=== PATIENT | female | born 1945 | race Caucasian/White ===

== ENCOUNTER 2019-10-24 08:09 | Outpatient (CLI) | payer MEDICARE, SELFPAY ==
--- NOTE | ~2019-10-24 | XR_ITS ---
EXAMINATION: XR shoulder RT min 2V DATE: 10/24/2019 08:32 INDICATION: Pain in right shoulder and down right humerus. TECHNIQUE: 6 views of right shoulder were obtained. COMPARISON: None. FINDINGS: Bone alignment is normal. No fracture. There is mild osteoarthritis of glenohumeral joint a nd acromioclavicular joint. Calcified right hilar lymph nodes are consistent with old granulomatous d isease. IMPRESSION: 1. Mild polyarticular osteoarthritis. Reviewed, dictated and finalized at location A. SITIONAL CARE NURSE
== END 2019-10-24 08:10 | disposition home or self-care (01) ==
PROVIDERS: PCP Nurse Practitioner Family; Visit Provider Nurse Practitioner Family
DX: M25.511 Pain in right shoulder (principal)
CPT/HCPCS: 73030

== ENCOUNTER 2019-11-20 06:23 | Outpatient (CLI) | payer MEDICARE, SELFPAY ==
[2019-11-20 06:41] LABS: Basophils Absolute Auto 0.07 K/mm3 (0.00-0.10); Eosinophils Absolute Auto 0.21 K/mm3 (0.02-0.50); Eosinophils Percent Auto 3.1 % (1.0-6.0); Hematocrit 44.4 % (35.0-42.0); Hemoglobin 14.4 g/dL (11.7-13.8); Immature Granulocyte Absolute 0.02 K/mm3 (0.00-0.00); Immature Granulocyte Percent A 0.3 % (0.0-0.0); Lymphocytes Absolute Auto 2.24 K/mm3 (1.10-4.50); Lymphocytes Percent Auto 32.6 % (18.0-42.0); Mean Corpuscular HGB Conc 32.4 g/dL (32.0-36.0); Mean Corpuscular Hemoglobin 29.5 pg (27.0-31.0); Mean Platelet Volume 10.3 fl (9.2-11.8); Monocytes Percent Auto 8.7 % (2.0-11.0); Neutrophils Absolute Auto 3.7 K/mm3 (1.7-7.2); Neutrophils Percent Auto 54.3 % (50.0-70.0); Platelet Count Result 232 K/mm3 (150-420); Red Blood Count 4.88 M/mm3 (4.20-5.40); Red Cell Distribution Width 13.2 % (11.6-14.4); White Blood Count 6.9 K/mm3 (4.8-10.8)
[2019-11-20 08:17] LABS: Alanine Aminotransferase 41 U/L (14-59); Albumin Level 3.9 g/dL (3.4-5.0); Alkaline Phosphatase 50 U/L (46-116); Anion Gap 14.3 mmol/L (7-16); Aspartate Amino Transferase 28 U/L (15-37); Bilirubin,Total 0.5 mg/dL (0.00-1.00); Blood Urea Nitrogen 24 mg/dL (7-18); Calcium 9.7 mg/dL (8.5-10.1); Carbon Dioxide 25 mmol/L (21-32); Chloride 106 mmol/L (98-108); Cholesterol 139 mg/dL (0-200); Estimated Glomerular Filt Rate > 60; Glucose 96 mg/dL (70-99); HDL Direct 54 mg/dL (40-60); LDL Cholesterol Calculated 63 mg/dL (<130); Osmolality Calculated 298 mOsm/kg (285-295); Potassium 3.3 mmol/L (3.5-5.1); Sodium 142 mmol/L (136-145); Total Protein 7.3 g/dL (6.4-8.2); Triglycerides 111 mg/dL (0-150)
== END 2019-11-20 06:24 | disposition home or self-care (01) ==
PROVIDERS: PCP Nurse Practitioner Family; Visit Provider Nurse Practitioner Family
DX: E78.5 Hyperlipidemia, unspecified (principal); I10 Essential (primary) hypertension
CPT/HCPCS: 36415; 80053; 80061; 85025

== ENCOUNTER 2020-06-15 11:17 | Outpatient (CLI) | payer MEDICARE, SELFPAY ==
[2020-06-15 11:34] LABS: Hematocrit 42.7 % (35.0-42.0); Hemoglobin 14.5 g/dL (11.7-13.8); Mean Corpuscular Hemoglobin 28.9 pg (27.0-31.0); Mean Corpuscular Volume 85.2 fL (78.0-102.0); Mean Platelet Volume 9.9 fl (9.2-11.8); Platelet Count Result 240 K/mm3 (150-420); Red Blood Count 5.01 M/mm3 (4.20-5.40); Red Cell Distribution Width 13.4 % (11.6-14.4); White Blood Count 11.5 K/mm3 (4.8-10.8)
[2020-06-15 12:16] LABS: Anion Gap 14 mmol/L (8-16); Blood Urea Nitrogen 18 mg/dL (7-18); Carbon Dioxide 25 mmol/L (21-32); Chloride 104 mmol/L (98-108); Estimated Glomerular Filt Rate 56; Glucose 106 mg/dL (70-99); Potassium 3.6 mmol/L (3.5-5.1); Sodium 143 mmol/L (136-145)
[2020-06-15 12:17] LABS: Alanine Aminotransferase 38 U/L (14-59); Albumin Level 4.1 g/dL (3.4-5.0); Alkaline Phosphatase 53 U/L (46-116); Aspartate Amino Transferase 23 U/L (15-37); Bilirubin,Total 0.5 mg/dL (0.00-1.00); Calcium 10.1 mg/dL (8.5-10.1); Lipase 124 U/L (73-393); Osmolality Calculated 297 mOsm/kg (285-295); Total Protein 7.4 g/dL (6.4-8.2)
== END 2020-06-15 11:18 | disposition home or self-care (01) ==
LOC: CHSLAB 11:19
PROVIDERS: PCP Family Medicine; Visit Provider Family Medicine
DX: R10.9 Unspecified abdominal pain (principal)
CPT/HCPCS: 36415; 80053; 83690; 85027; 87086; 87088

== ENCOUNTER 2020-12-23 06:02 | Outpatient (CLI) | payer MEDICARE, SELFPAY | END 2020-12-23 06:03 | disposition home or self-care (01) | LOC: CHSAUDIO 06:04 | PROVIDERS: PCP Nurse Practitioner Family; Visit Provider Nurse Practitioner Family | DX: H91.90 Unspecified hearing loss, unspecified ear (principal) | CPT/HCPCS: 92557; 92567 ==

== ENCOUNTER 2021-01-14 08:32 | Outpatient (CLI) | payer MEDICARE, SELFPAY ==
--- NOTE | ~2021-01-14 | MM_ITS ---
EXAMINATION: MM screening [facility] BI w tara HISTORY: Screening TECHNIQUE: Craniocaudal and mediolateral oblique 3-D tomosynthesis images were obtained and synthetic 2-D images were generated. CAD analysis was submitted and interpreted. COMPARISON: Comparison to multiple prior studies sequentially, with oldest reviewed study dated 01/2013. BREAST PARENCHYMAL COMPOSITION: There are scattered areas of fibroglandular density. FINDINGS: There is no evidence of suspicious mass, calcification, or architectural distortion to sugg est malignancy in either breast. There has been no suspicious interval change. IMPRESSION: 1. No mammographic evidence of malignancy. 2. Recommend routine screening mammography in one year. BI-RADS Category 1: Negative Reviewed, dictated and finalized at location A.
== END 2021-01-14 08:33 | disposition home or self-care (01) ==
PROVIDERS: PCP Nurse Practitioner Family; Visit Provider Nurse Practitioner Family
DX: Z12.31 Encounter for screening mammogram for malignant neoplasm of breast (principal)
CPT/HCPCS: 77063; 77067

== ENCOUNTER 2021-01-25 06:25 | Outpatient (CLI) | payer MEDICARE, SELFPAY ==
[2021-01-25 06:56] LABS: Basophils Absolute Auto 0.06 K/mm3 (0.00-0.10); Basophils Percent Auto 0.7 % (0.0-1.0); Eosinophils Absolute Auto 0.23 K/mm3 (0.02-0.50); Eosinophils Percent Auto 2.8 % (1.0-6.0); Hematocrit 45.6 % (35.0-42.0); Hemoglobin 15.1 g/dL (11.7-13.8); Immature Granulocyte Absolute 0.02 K/mm3 (0.00-0.00); Immature Granulocyte Percent A 0.2 % (0.0-0.0); Lymphocytes Absolute Auto 2.65 K/mm3 (1.10-4.50); Lymphocytes Percent Auto 31.9 % (18.0-42.0); Mean Corpuscular HGB Conc 33.1 g/dL (32.0-36.0); Mean Corpuscular Hemoglobin 28.7 pg (27.0-31.0); Mean Corpuscular Volume 86.7 fL (78.0-102.0); Mean Platelet Volume 10.5 fl (9.2-11.8); Monocytes Absolute Auto 0.53 K/mm3 (0.10-0.90); Monocytes Percent Auto 6.4 % (2.0-11.0); Neutrophils Absolute Auto 4.8 K/mm3 (1.7-7.2); Platelet Count Result 251 K/mm3 (150-420); Red Blood Count 5.26 M/mm3 (4.20-5.40); Red Cell Distribution Width 13.3 % (11.6-14.4); White Blood Count 8.3 K/mm3 (4.8-10.8)
[2021-01-25 07:05] LABS: Alanine Aminotransferase 45 U/L (14-59); Alkaline Phosphatase 57 U/L (46-116); Anion Gap 10 mmol/L (8-16); Aspartate Amino Transferase 24 U/L (15-37); Bilirubin,Total 0.6 mg/dL (0.00-1.00); Blood Urea Nitrogen 22 mg/dL (7-18); Calcium 9.6 mg/dL (8.5-10.1); Carbon Dioxide 29 mmol/L (21-32); Chloride 102 mmol/L (98-108); Cholesterol 175 mg/dL (0-200); Estimated Glomerular Filt Rate > 60; Glucose 107 mg/dL (70-99); HDL Direct 63 mg/dL (40-60); LDL Cholesterol Calculated 92 mg/dL (<130); Osmolality Calculated 295 mOsm/kg (285-295); Sodium 141 mmol/L (136-145); Total Protein 7.4 g/dL (6.4-8.2); Triglycerides 101 mg/dL (0-150)
== END 2021-01-25 06:26 | disposition home or self-care (01) ==
PROVIDERS: PCP Nurse Practitioner Family; Visit Provider Nurse Practitioner Family
DX: E78.5 Hyperlipidemia, unspecified (principal); I10 Essential (primary) hypertension
CPT/HCPCS: 36415; 80053; 80061; 85025

== ENCOUNTER 2021-05-31 09:26 | Outpatient (CLI) | payer MEDICARE, SELFPAY ==
--- NOTE | ~2021-05-31 | XR_ITS ---
EXAMINATION: XR foot LT min 3V DATE: 05/31/2021 09:47 INDICATION: Soft tissue mass at the second toe TECHNIQUE: Weightbearing dorsal plantar, oblique and lateral views of the left foot were obtained. COMPARISON: None. FINDINGS: Pes planus with flattening of the longitudinal arch. No fracture. Polyarticular osteoarthritis, moder ate severity at the fourth and fifth distal interphalangeal joints and minimal to mild at many of the remaining interphalangeal joints, the first metatarsophalangeal and a few of the tarsal metatarsal j oints. No erosions to suggest inflammatory arthritis. A couple tiny enthesopathic ossicles at the pro ximal plantar aponeurosis. Soft tissue swelling at the fourth toe. No left ankle joint effusion.. IMPRESSION: 1. Mild to moderate polyarticular osteoarthritis in the left fore and midfoot. Reviewed, dictated and finalized at location A.
== END 2021-05-31 09:27 | disposition home or self-care (01) ==
LOC: CHSIMG 09:29
PROVIDERS: PCP Nurse Practitioner Family; Visit Provider Podiatrist
DX: R22.42 Localized swelling, mass and lump, left lower limb (principal)
CPT/HCPCS: 73630

== ENCOUNTER 2022-02-14 06:08 | Outpatient (CLI) | payer MEDICARE, SELFPAY ==
[2022-02-14 06:33] LABS: Basophils Absolute Auto 0.07 K/mm3 (0.00-0.10); Basophils Percent Auto 0.9 % (0.0-1.0); Eosinophils Absolute Auto 0.22 K/mm3 (0.02-0.50); Eosinophils Percent Auto 2.8 % (1.0-6.0); Hematocrit 44.3 % (35.0-42.0); Hemoglobin 14.4 g/dL (11.7-13.8); Immature Granulocyte Absolute 0.02 K/mm3 (0.00-0.00); Immature Granulocyte Percent A 0.3 % (0.0-0.0); Lymphocytes Absolute Auto 2.72 K/mm3 (1.10-4.50); Lymphocytes Percent Auto 34.9 % (18.0-42.0); Mean Corpuscular HGB Conc 32.5 g/dL (32.0-36.0); Mean Corpuscular Hemoglobin 30.1 pg (27.0-31.0); Mean Corpuscular Volume 92.7 fL (78.0-102.0); Mean Platelet Volume 9.8 fl (9.2-11.8); Monocytes Absolute Auto 0.59 K/mm3 (0.10-0.90); Monocytes Percent Auto 7.6 % (2.0-11.0); Neutrophils Absolute Auto 4.2 K/mm3 (1.7-7.2); Neutrophils Percent Auto 53.5 % (50.0-70.0); Platelet Count Result 249 K/mm3 (150-420); Red Blood Count 4.78 M/mm3 (4.20-5.40); Red Cell Distribution Width 12.7 % (11.6-14.4); White Blood Count 7.8 K/mm3 (4.8-10.8)
[2022-02-14 07:00] LABS: Alanine Aminotransferase 40 U/L (14-59); Alkaline Phosphatase 51 U/L (46-116); Anion Gap 9 mmol/L (8-16); Aspartate Amino Transferase 23 U/L (15-37); Bilirubin,Total 0.7 mg/dL (0.00-1.00); Blood Urea Nitrogen 20 mg/dL (7-18); Calcium 9.4 mg/dL (8.5-10.1); Carbon Dioxide 26 mmol/L (21-32); Chloride 105 mmol/L (98-108); Cholesterol 136 mg/dL (0-200); Estimated Glomerular Filt Rate > 60; Free T4 Free Thyroxine 1.34 ng/dL (0.76-1.46); Glucose 106 mg/dL (70-99); HDL Direct 57 mg/dL (40-60); LDL Cholesterol Calculated 63 mg/dL (<130); Osmolality Calculated 292 mOsm/kg (285-295); Potassium 3.4 mmol/L (3.5-5.1); Sodium 140 mmol/L (136-145); Thyroid Stimulating Hormone 0.28 uIU/mL (0.36-3.74); Total Protein 7.7 g/dL (6.4-8.2); Triglycerides 82 mg/dL (0-150)
[2022-02-17 13:31] LABS: Vitamin D 25 Hydroxy 57 ng/mL (30-100)
== END 2022-02-14 06:09 | disposition home or self-care (01) ==
LOC: CHSLAB 06:12
PROVIDERS: PCP Nurse Practitioner Family; Visit Provider Nurse Practitioner Family
DX: R53.83 Other fatigue (principal); I10 Essential (primary) hypertension; R73.09 Other abnormal glucose; E78.5 Hyperlipidemia, unspecified; Z79.899 Other long term (current) drug therapy
CPT/HCPCS: 36415; 80053; 80061; 82306; 83036; 84439; 84443; 85025

== ENCOUNTER 2022-08-12 06:10 | Outpatient (CLI) | payer MEDICARE, SELFPAY ==
--- NOTE | ~2022-08-12 | MM_ITS ---
EXAMINATION: MM screening [facility] BI w tara HISTORY: Screening mammogram TECHNIQUE: Craniocaudal and mediolateral oblique 3-D tomosynthesis images were obtained and synthetic 2-D images were generated. CAD analysis was submitted and interpreted. COMPARISON: 01/14/2021, 08/16/2018, 02/14/2017 BREAST PARENCHYMAL COMPOSITION: There are scattered areas of fibroglandular density. FINDINGS: RIGHT BREAST: No suspicious mass, calcification, or architectural distortion are identified to sugges t malignancy. There has been no suspicious interval change. LEFT BREAST: An asymmetry is present in the posterior third of the outer breast on the craniocaudal v iew.. IMPRESSION: 1. Left breast asymmetry on the craniocaudal view. 2. Additional mammographic views and possible breast ultrasound are recommended. BI-RADS Category 0: Incomplete: Needs additional imaging evaluation. Reviewed, dictated and finalized at location A. LE END TENONER OPERATOR IMPRESSION: 1. Left breast asymmetry on the craniocaudal view. 2. Additional mammographic views and possible breast ultrasound are recommended . BI-RADS Category 0: Incomplete: Needs additional imaging evaluation.
--- NOTE | ~2022-08-12 | DEXA_ITS ---
Bone Density Report Name: GUEVARA CHÁVEZ Age: 77 Sex: Female Ethnicity: White Date of : 1945 Indication: postmenopausal; screening for osteoporosis; height loss; prior fracture; hysterectomy; Referring Provider: Becky Conroy Study: Bone densitometry was performed. Exam Date: August 12, 2022 Accession number: [id number] Bone Density: Region BMD T-score Z-score Classification AP Spine(L1, L2, L3) 1.092 0.7 3.2 Normal Femoral Neck (Left) 0.832 -0.1 2.1 Normal Total Hip (Left) 0.879 -0.5 1.5 Normal Femoral Neck (Right) 0.817 -0.3 2.0 Normal Total Hip (Right) 0.878 -0.5 1.5 Normal Femoral Neck Mean 0.825 -0.2 2.1 Normal Total Hip Mean 0.879 -0.5 1.5 Normal World Health Organization criteria for BMD impression classify patients as: Normal (T-score at or above -1.0), Osteopenia (T-score between -1.0 and -2.5), or Osteoporosis (T-score at or below -2.5). 10-year Fracture Risk: FRAX not reported because: All T-scores for Spine Total, Hip Total, Femoral Neck at or above -1.0 Clinical Information Provided by Patient: Has had a low trauma fracture Has used the following medications: Vitamin D, Calcium, mulivit Has the following medical conditions: Hysterectomy Patient maximum height was 65 Menopause Age: 43 No regular weight bearing exercise Does not regularly consume dairy products Drinks caffeinated beverages Onset of menses at age 9 Number of children 0 Impression: The patient has normal bone mass. The patient has risk factors, including: previous fracture. Discussion: BONE DENSITY IS ABOVE THE MINIMUM DESIRABLE LEVEL AT ALL SKELETAL SITES TESTED. This patient?s bone mineral density is above the minimum desirable level (T-score -1.0 or better) at all sites measured. The patient should follow a healthful lifestyle (good nutrition with adequate calcium and vitamin D, and appropriate weight-bearing exercise). Follow-Up: Consider repeating this study in 5 years or sooner if there is some new clinical indication. Reported by: Dr. Stew Guzman on 08/12/2022 7:00:00 AM. Reviewed, dictated and finalized at location AJeannette DE JESUS
== END 2022-08-12 06:11 | disposition home or self-care (01) ==
LOC: CHSIMG 06:13
PROVIDERS: PCP Nurse Practitioner Family; Visit Provider Nurse Practitioner Family
DX: M81.8 Other osteoporosis without current pathological fracture (principal); Z12.31 Encounter for screening mammogram for malignant neoplasm of breast
CPT/HCPCS: 77063; 77067; 77080

== ENCOUNTER 2022-08-19 08:03 | Outpatient (CLI) | payer MEDICARE, SELFPAY ==
--- NOTE | ~2022-08-19 | MM_ITS ---
EXAMINATION: MM diagnostic angle LT w tara HISTORY: Left breast asymmetry on screening mammogram TECHNIQUE: Additional 3-D tomosynthesis images of the left breast were performed and synthetic 2-D im ages were generated. CAD analysis was submitted and interpreted. COMPARISON: 08/12/2022, 01/14/2021, 08/16/2018 FINDINGS: There is a return to baseline fibroglandular appearance with spot compression of the left b reast in the area questioned on screening mammogram. IMPRESSION: 1. No mammographic evidence of malignancy. 2. Recommend routine screening mammography in one year. BI-RADS Category 1: Negative Reviewed, dictated and finalized at location A. ERICAN HISTORY TEACHER
== END 2022-08-19 08:04 | disposition home or self-care (01) ==
LOC: CHSIMG 08:05
PROVIDERS: PCP Nurse Practitioner Family; Visit Provider Nurse Practitioner Family
DX: N64.89 Other specified disorders of breast (principal)
CPT/HCPCS: 77061; 77065; G0279

== ENCOUNTER 2022-09-06 14:07 | Outpatient (CLI) | payer MEDICARE, SELFPAY ==
[2022-09-06 14:13] LABS: Add Urine Microscopic? YES; Appearance Urine Slightly Cloudy (Clear); Bacteria Urine 2+ /hpf; Bilirubin Urine Negative (Negative); Blood Urine Trace-Intact (Negative); Color Urine Yellow (Yellow); Glucose Urine UA Negative (Negative); Ketones Urine Negative (Negative); Leukocyte Esterase Ur 2+ LEU/UL (Negative); Nitrate Urine Positive (Negative); Protein Urine Negative (Negative); RBC Urine 0-2 /hpf (0-2); Specific Grav Ur >= 1.030 (1.010-1.020); Squamous Epithelial Cell Urine Rare /hpf (Few); Urobilinogen Urine 0.2 mg/dL (0.2-1.0)
== END 2022-09-06 14:08 | disposition home or self-care (01) ==
LOC: CHSLAB 14:08
PROVIDERS: PCP Nurse Practitioner Family; Visit Provider Nurse Practitioner Family
DX: R39.9 Unspecified symptoms and signs involving the genitourinary system (principal)
CPT/HCPCS: 81001; 87077; 87086; 87088; 87186

== ENCOUNTER 2022-09-12 08:00 | Outpatient (CLI) | payer MEDICARE, SELFPAY ==
--- NOTE | ~2022-09-12 | XR_ITS ---
EXAM: XR knee LT 2V DATE: 09/12/2022 08:12 HISTORY: GENERAL LT KNEE PAIN,S/P HEARD A POP,INJ X1WK AGO . COMPARISON: 06/20/2011. FINDINGS: Normal mineralization. No fracture or dislocation. No lytic or blastic lesion. Severe medi al joint space narrowing. Loss of valgus alignment. Moderate tricompartmental osteophytosis. No erosi on or periosteal change. Vascular calcifications. Moderate volume joint fluid. IMPRESSION: Tricompartmental left knee osteoarthritis, severe in the medial compartment. Moderate lef t knee joint effusion. Reviewed, dictated and finalized at location K. RICT BRANCH MANAGER IMPRESSION: Tricompartmental left knee osteoarthritis, severe in the medial com partment. Moderate left knee joint effusion.
== END 2022-09-12 08:01 | disposition home or self-care (01) ==
LOC: CHSIMG 08:02
PROVIDERS: PCP Nurse Practitioner Family; Visit Provider Nurse Practitioner Family
DX: M25.562 Pain in left knee (principal); M17.12 Unilateral primary osteoarthritis, left knee; M25.462 Effusion, left knee
CPT/HCPCS: 73560

== ENCOUNTER 2022-09-17 07:14 | Outpatient (CLI) | payer MEDICARE, SELFPAY ==
--- NOTE | ~2022-09-17 | MR_ITS ---
EXAMINATION: MR knee LT wo con DATE: 09/17/2022 08:40 INDICATION: Increasing left knee pain following a twisting injury 2 weeks ago. TECHNIQUE: Magnetic resonance imaging (MRI) of the left knee was performed without intravenous contra st. Sequences included axial PD-weighted FS FSE, coronal PD-weighted FSE and PD-weighted FS FSE, sagi ttal PD-weighted FSE, and sagittal T2-weighted FS FSE. COMPARISON: X-ray left knee 09/12/2022. FINDINGS: Medial compartment: Apical and undersurface tears of the posterior horn and body of the medial meniscus, with extensive d egenerative signal change and medial extrusion. Full-thickness cartilage loss in the renal compartmen t. Severe osteophytosis. Lateral compartment: Apical tear of the body of the lateral meniscus. Moderate diffuse cartilage loss. Moderate osteophyto sis. Patellofemoral compartment: Full-thickness cartilage loss on the medial facet. Moderate osteophytosis. Ligaments and tendons: The ACL is not visualized. PCL, MCL, and LCL are intact. The remaining flexor and extensor tendons ar e intact. Fluid: Small volume joint fluid. Large Reyes's cyst. Osseous/other: No suspicious focal or diffuse marrow signal. IMPRESSION: 1. Presumably chronic full-thickness ACL tear. 2. Complex medial meniscal tears, with degenerative change and medial extrusion. 3. Apical tear of the body of the lateral meniscus. 4. Tricompartmental osteoarthritis, severe in the medial compartment. 5. Large Reyes's cyst. Reviewed, dictated and finalized at location K. ISHING SYSTEMS ANALYST IMPRESSION: 1. Presumably chronic full-thickness ACL tear. 2. Complex medial meniscal tears, with degenerative change and medial extrusion . 3. Apical tear of the body of the lateral meniscus. 4. Tricompartmental osteoarthritis, severe in the medial compartment. 5. Large Reyes's cyst.
== END 2022-09-17 07:15 | disposition home or self-care (01) ==
LOC: CHSIMG 07:16
PROVIDERS: PCP Nurse Practitioner Family; Visit Provider Nurse Practitioner Family
DX: M25.462 Effusion, left knee (principal); M25.562 Pain in left knee; S83.512A Sprain of anterior cruciate ligament of left knee, initial encounter; S83.232A Complex tear of medial meniscus, current injury, left knee, initial encounter; S83.282A Other tear of lateral meniscus, current injury, left knee, initial encounter; M17.12 Unilateral primary osteoarthritis, left knee; M71.22 Synovial cyst of popliteal space [Baker], left knee
CPT/HCPCS: 73721

== ENCOUNTER 2022-09-26 15:25 | Outpatient (RCR) | payer MEDICARE, SELFPAY ==
--- NOTE | 2022-09-26 16:35 | PTOPEVAL1 ---
Assessment and note entered by Deja King DPT Evaluation Information Assessment Status Evaluation Diagnosis chronic ACL tear, meniscal tear, osteoarthritis Onset 09/20/21 Subjective Information Patient reports chronic L knee pain for multiple years. She reports she had been getting injections in her knee every 6 months with good results. ~2 weeks ago she was rolling in bed and felt a pop with significant pain and pain has significantly improved. She reports the next day she could not walk but pain is improving. MRI shows posterior horn tear or the meniscus, full thickness cartilage loss in the renal compartment and severe osteophytosis. She reports difficulty walking, standing and performing prolonged house hold activities. Ice has helped decreased inflammation and pain. Patient's goal for PT is to be able to walk better. Reported Pain Level Pain Score 6: Self Report Assessment PT Clinical Summary Patient is a 77 year old female who presents to PT with L knee pain. Patient demonstrates decreased L knee strength, L knee AROM, and impaired gait mechanics limtiing her ability to ambulate, tolerate prolonged periods and perform house hold tasks. Patient would benefit from skilled PT to address impairments and return to PLOF. Plan of Care Interventions Electrical Stimulation,Hot Pack/Cold Pack,Manual Therapy,Neuro Re-education,Patient/Caregiver Educati,Therapeutic Activities,Therapeutic Exercise,Self-Care/Home Management PT Services Indicated Yes Treatment Frequency and 2x/week x 10 visits Duration These treatments will address the objective and functional deficits as defined above. The patient will be advanced safely and appropriately in order for the patient to progress towards his/her prior level of function. Additional exercises will be introduced and as well as a comprehensive home exercise program upon discharge, if needed, ?to ensure carryover of functional gains achieved in the clinic. This treatment plan has been reviewed and agreement upon by the patient.
--- NOTE | 2022-10-27 16:13 | PTOPDC ---
Assessment and note entered by Deja King DPT Evaluation Information Assessment Status Evaluation Diagnosis chronic ACL tear, meniscal tear, osteoarthritis Onset 09/20/21 Subjective Information Patient reports her knee is feeling much improved since start of therapy. She reports she has improved ability to walk and get up from chair and her leg does not hurt when she goes to bed at night. She does report that stairs can cause some discomfort. She reports compliance with HEP. Reported Pain Level Pain Score 0: Self Report Assessment PT Clinical Summary Patient is a 77 year old female who has been seen from 09/26/22 to 10/27/22 for L knee pain. She made great progress and met all goals. She has improved strength and ROM and reports improved ability to ambulate and get up from a chair. She reports independence with HEP and is appropriate for discharge at this time. Plan of Care PT Services Indicated No Treatment Frequency and DC to independent HEP Duration
== END 2022-10-27 16:37 | disposition home or self-care (01) ==
LOC: CHSPT 15:25
PROVIDERS: PCP Nurse Practitioner Family; Visit Provider Nurse Practitioner Family
DX: M17.12 Unilateral primary osteoarthritis, left knee (principal)
CPT/HCPCS: 97014; 97110; 97140; 97161; G0283

== ENCOUNTER 2022-11-28 07:28 | Outpatient (CLI) | payer MEDICARE, SELFPAY | END 2022-11-28 07:29 | disposition home or self-care (01) | LOC: CHSAUDIO 07:32 | PROVIDERS: PCP Nurse Practitioner Family; Visit Provider Nurse Practitioner Family | DX: H90.3 Sensorineural hearing loss, bilateral (principal) | CPT/HCPCS: 92557; 92567 ==

== ENCOUNTER 2022-12-20 10:36 | Outpatient (CLI) | payer MEDICARE, SELFPAY ==
[2022-12-20 10:49] LABS: Appearance Urine Clear (Clear); Bilirubin Urine Negative (Negative); Blood Urine Negative (Negative); Color Urine Yellow (Yellow); Glucose Urine UA Negative (Negative); Ketones Urine Negative (Negative); Leukocyte Esterase Ur 2+ LEU/UL (Negative); Nitrate Urine Negative (Negative); Protein Urine Negative (Negative); Urobilinogen Urine 0.2 mg/dL (0.2-1.0)
[2022-12-20 10:55] LABS: Add Urine Microscopic? YES; Bacteria Urine 1+ /hpf; Mucus Urine Moderate /lpf; RBC Urine None seen /hpf (0-2); Squamous Epithelial Cell Urine Few /hpf (Few)
== END 2022-12-20 10:37 | disposition home or self-care (01) ==
LOC: CHSLAB 10:39
PROVIDERS: PCP Nurse Practitioner Family; Visit Provider Nurse Practitioner Family
DX: R82.90 Unspecified abnormal findings in urine (principal)
CPT/HCPCS: 81001; 87077; 87086; 87088; 87186

== ENCOUNTER 2023-01-16 07:30 | Outpatient (CLI) | payer MEDICARE, SELFPAY ==
[2023-01-16 07:55] LABS: Appearance Urine Clear (Clear); Bilirubin Urine 1+ (Negative); Blood Urine Negative (Negative); Glucose Urine UA Negative (Negative); Ketones Urine Trace (Negative); Leukocyte Esterase Ur 1+ LEU/UL (Negative); Nitrate Urine Negative (Negative); Protein Urine Negative (Negative); Urobilinogen Urine 0.2 mg/dL (0.2-1.0); pH Urine 6.5 (5.0-8.0)
[2023-01-16 08:01] LABS: Add Urine Microscopic? YES; Bacteria Urine Trace /hpf; Color Urine Dark Yellow (Yellow); RBC Urine None seen /hpf (0-2); Squamous Epithelial Cell Urine Few /hpf (Few); WBC Urine 0-3 /hpf (0-3)
[2023-01-16 08:02] LABS: Mucus Urine Few /lpf
== END 2023-01-16 07:31 | disposition home or self-care (01) ==
LOC: CHSLAB 07:32
PROVIDERS: PCP Nurse Practitioner Family; Visit Provider Nurse Practitioner Family
DX: R82.90 Unspecified abnormal findings in urine (principal); Z87.898 Personal history of other specified conditions
CPT/HCPCS: 81001; 87086

== ENCOUNTER 2023-02-27 06:19 | Outpatient (CLI) | payer MEDICARE, SELFPAY ==
[2023-02-27 06:33] LABS: Basophils Absolute Auto 0.07 K/mm3 (0.00-0.10); Basophils Percent Auto 0.8 % (0.0-1.0); Eosinophils Absolute Auto 0.17 K/mm3 (0.02-0.50); Hemoglobin 14.4 g/dL (11.7-13.8); Immature Granulocyte Absolute 0.03 K/mm3 (0.00-0.00); Immature Granulocyte Percent A 0.4 % (0.0-0.0); Mean Corpuscular HGB Conc 33.5 g/dL (32.0-36.0); Mean Corpuscular Volume 89.6 fL (78.0-102.0); Mean Platelet Volume 9.7 fl (9.2-11.8); Monocytes Absolute Auto 0.67 K/mm3 (0.10-0.90); Monocytes Percent Auto 7.8 % (2.0-11.0); Neutrophils Absolute Auto 5.2 K/mm3 (1.7-7.2); Platelet Count Result 269 K/mm3 (150-420); Red Cell Distribution Width 12.1 % (11.6-14.4); White Blood Count 8.6 K/mm3 (4.8-10.8)
[2023-02-27 07:03] LABS: Alanine Aminotransferase 31 U/L (14-59); Albumin Level 3.9 g/dL (3.4-5.0); Alkaline Phosphatase 52 U/L (46-116); Anion Gap 12 mmol/L (8-16); Aspartate Amino Transferase 22 U/L (15-37); Bilirubin,Total 0.6 mg/dL (0.00-1.00); Blood Urea Nitrogen 18 mg/dL (7-18); Calcium 9.4 mg/dL (8.5-10.1); Carbon Dioxide 27 mmol/L (21-32); Chloride 105 mmol/L (98-108); Cholesterol 150 mg/dL (0-200); Estimated Glomerular Filt Rate > 60; Glucose 97 mg/dL (70-99); HDL Direct 58 mg/dL (40-60); LDL Cholesterol Calculated 68 mg/dL (<130); Osmolality Calculated 299 mOsm/kg (285-295); Potassium 3.3 mmol/L (3.5-5.1); Sodium 144 mmol/L (136-145); Total Protein 7.2 g/dL (6.4-8.2); Triglycerides 119 mg/dL (0-150)
== END 2023-02-27 06:20 | disposition home or self-care (01) ==
PROVIDERS: PCP Nurse Practitioner Family; Visit Provider Nurse Practitioner Family
DX: E78.5 Hyperlipidemia, unspecified (principal); I10 Essential (primary) hypertension
CPT/HCPCS: 36415; 80053; 80061; 85025

== ENCOUNTER 2023-04-11 10:23 | Outpatient (CLI) | payer MEDICARE, SELFPAY ==
[2023-04-11 11:30] LABS: Uric Acid 2.1 mg/dL (2.6-6.0)
== END 2023-04-11 10:24 | disposition home or self-care (01) ==
LOC: CHSLAB 10:25
PROVIDERS: PCP Nurse Practitioner Family; Visit Provider Nurse Practitioner Family
DX: M79.675 Pain in left toe(s) (principal)
CPT/HCPCS: 36415; 84550

== ENCOUNTER 2023-05-22 11:33 | Outpatient (CLI) | payer MEDICARE, SELFPAY ==
[2023-05-22 11:40] LABS: Add Urine Microscopic? YES; Appearance Urine Clear (Clear); Bacteria Urine 3+ /hpf; Bilirubin Urine Negative (Negative); Blood Urine Negative (Negative); Color Urine Light Yellow (Yellow); Glucose Urine UA Negative (Negative); Ketones Urine Trace (Negative); Leukocyte Esterase Ur 1+ LEU/UL (Negative); Nitrate Urine Positive (Negative); Protein Urine Negative (Negative); RBC Urine None seen /hpf (0-2); Squamous Epithelial Cell Urine Few /hpf (Few); Urobilinogen Urine 0.2 mg/dL (0.2-1.0)
== END 2023-05-22 11:34 | disposition home or self-care (01) ==
LOC: CHSLAB 11:35
PROVIDERS: PCP Nurse Practitioner Family; Visit Provider Nurse Practitioner Family
DX: R82.90 Unspecified abnormal findings in urine (principal); Z87.898 Personal history of other specified conditions
CPT/HCPCS: 81001; 87077; 87086; 87088; 87186

== ENCOUNTER 2023-06-21 11:38 | Outpatient (CLI) | payer MEDICARE, SELFPAY ==
--- NOTE | ~2023-06-21 | US_ITS ---
US axilla LT 06/21/2023 12:21 Indication: Palpable left axillary mass Procedure: High-resolution Limited ultrasound of the left axilla Comparison: No prior studies for comparison. Findings: There is a complex mass in the left axilla measuring 7 x 5.2 x 4.1 cm with heterogeneous in ternal echotexture and internal vascularity. No other discrete solid or cystic masses seen. Impression: 1: Complex irregular shaped hypoechoic left axillary mass measuring 7 cm. Percutaneous ultrasound-petey ded biopsy recommended. Reviewed, dictated and finalized at location B. Impression: 1: Complex irregular shaped hypoechoic left axillary mass measuring 7 cm. Percu taneous ultrasound-guided biopsy recommended.
== END 2023-06-21 11:39 | disposition home or self-care (01) ==
LOC: CHSIMG 11:41
PROVIDERS: PCP Nurse Practitioner Family; Visit Provider Nurse Practitioner Family
DX: R22.31 Localized swelling, mass and lump, right upper limb (principal)
CPT/HCPCS: 76882

== ENCOUNTER 2023-06-30 09:50 | Outpatient (CLI) | payer MEDICARE, SELFPAY ==
--- NOTE | ~2023-06-30 | US_ITS ---
EXAMINATION: US_BXSTAXLIMG_US DATE: 06/30/2023 11:02 INDICATION: Left axillary mass TECHNIQUE: The procedure including the risks and benefits was discussed with the patient. Risks discu ssed included bleeding and infection. The patient understood the risks and agreed to proceed. The sk in overlying the left axilla was prepped and draped in usual sterile fashion. Anesthetic was adminis tered with 1% lidocaine subcutaneously. An routine gauge core biopsy needle was advanced under wilfredo nuous ultrasound observation to the lesion of interest. 6 core biopsy specimens were obtained, 4 nadya margaux in RPMI media and 2 in formalin. The needle was removed and the entry site was cleaned and dress ed. Post procedure ultrasound demonstrated no hemorrhage. FINDINGS: Ultrasound images demonstrate a 6.2 x 4.1 x 4.6 cm very hypoechoic solid mass with lobular margins at the left axilla. Subsequent images density biopsy needle advanced into the mass.. IMPRESSION: 1. Successful Ultrasound-guided biopsy of a 6.2 x 4.1 x 4.6 cm left axillary mass which is concerning for malignancy/metastatic disease. Reviewed, dictated and finalized at location A. IMPRESSION: 1. Successful Ultrasound-guided biopsy of a 6.2 x 4.1 x 4.6 cm left axillary ma ss which is concerning for malignancy/metastatic disease.
== END 2023-06-30 09:51 | disposition home or self-care (01) ==
PROVIDERS: PCP Nurse Practitioner Family; Visit Provider Nurse Practitioner Family
DX: R22.32 Localized swelling, mass and lump, left upper limb (principal)
CPT/HCPCS: 20999; 76942; 88184; 88185; 88305; 88342

== ENCOUNTER 2023-08-21 06:27 | Outpatient (CLI) | payer MEDICARE, SELFPAY ==
--- NOTE | ~2023-08-21 | MM_ITS ---
EXAMINATION: MM screening angle BI w tara HISTORY: Screening TECHNIQUE: Craniocaudal and mediolateral oblique 3-D tomosynthesis images were obtained and synthetic 2-D images were generated. CAD analysis was submitted and interpreted. COMPARISON: Comparison to multiple prior studies sequentially, with oldest reviewed study dated 02/2017. BREAST PARENCHYMAL COMPOSITION: There are scattered areas of fibroglandular density. FINDINGS: There is no evidence of suspicious mass, calcification, or architectural distortion to sugg est malignancy in either breast. There has been no suspicious interval change. IMPRESSION: 1. No mammographic evidence of malignancy. 2. Recommend routine screening mammography in one year. BI-RADS Category 1: Negative Reviewed, dictated and finalized at location A. ERER AND WIRER
== END 2023-08-21 06:28 | disposition home or self-care (01) ==
LOC: CHSIMG 06:30
PROVIDERS: PCP Nurse Practitioner Family; Visit Provider Nurse Practitioner Family
DX: Z12.31 Encounter for screening mammogram for malignant neoplasm of breast (principal)
CPT/HCPCS: 77063; 77067

== ENCOUNTER 2023-09-06 06:33 | Outpatient (CLI) | payer MEDICARE, SELFPAY ==
--- NOTE | ~2023-09-06 | CT_ITS ---
EXAMINATION: CTA brain carotid DATE: 09/06/2023 10:25 INDICATION: Malignant melanoma of unknown origin. TECHNIQUE: Computed tomographic angiography (CTA) of the head was performed without and with 100 mL O mnipaque-350 intravenous contrast. CTA of the neck was performed with intravenous contrast. Automated exposure control and iterative reconstruction technique were employed. The dose-length product was 1 004.23 mGy-cm. Maximum intensity projection and volume rendered 3D-reconstructions were created by giovanni loredo technologist on a separate workstation. COMPARISON: Head CT 01/03/2019 FINDINGS: HEAD CTA: There are scattered areas of low attenuation in the cerebral white matter. There is no intr acranial hemorrhage, acute infarction, or abnormal intracranial mass lesion. There is an old lacunar infarct in the right lentiform nucleus. The ventricles are normal in size. The orbits are normal. The re are mucous retention cysts in the maxillary sinuses. Right vertebral artery is dominant. There is no significant stenosis of basilar artery or the posterior cerebral arteries. There is no significant stenosis of the intracranial internal carotid arteries or anterior or middle cerebral arteries. Ante rior communicating artery is normal. The posterior communicating arteries are normal. There is no ane urysm. NECK CTA: There are no pathologically enlarged lymph nodes. There are nodules in the thyroid measurin g up to 7 mm, likely not clinically significant. There is no significant stenosis of the vertebral ar teries. There is plaque in the proximal internal carotid arteries. There is 54% stenosis of the proxi mal right internal carotid artery relative to normal distal artery lumen diameter (NASCET criteria). There is 22% stenosis of the proximal left internal carotid artery relative to normal distal artery l umen diameter. There is moderate cervical spondylosis. IMPRESSION: 1. 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 2. Moderate nonspecific cerebral white matter disease, which likely represents chronic small vessel ischemic disease. 3. No aneurysm or significant intracranial arterial stenosis. 4. 54% stenosis of the proximal right internal carotid artery relative to normal distal artery lumen diameter (NASCET criteria). 5. 22% stenosis of the proximal left internal carotid artery relative to normal distal artery lumen d iameter. Reviewed, dictated and finalized at location E. TING ROLLER POLISHER IMPRESSION: 1. 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 2. Moderate nonspecific cerebral white matter disease, which likely represents chronic small vessel ischemic disease. 3. No aneurysm or significant intracranial arterial stenosis. 4. 54% stenosis of the proximal right internal carotid artery relative to veronica l distal artery lumen diameter (NASCET criteria). 5. 22% stenosis of the proximal left internal carotid artery relative to normal distal artery lumen diameter.
[2023-09-06 07:22] LABS: Estimated Glomerular Filt Rate > 60
== END 2023-09-06 06:34 | disposition home or self-care (01) ==
LOC: CHSIMG 06:36
PROVIDERS: PCP Nurse Practitioner Family
DX: C43.9 Malignant melanoma of skin, unspecified (principal); R90.82 White matter disease, unspecified; I65.23 Occlusion and stenosis of bilateral carotid arteries
CPT/HCPCS: 70496; 70498; Q9967

== ENCOUNTER 2023-11-20 16:41 | Outpatient (NON) | payer MEDICARE, SELFPAY ==
[2023-11-20 17:00] LABS: Appearance Urine Clear (Clear); Bilirubin Urine Negative (Negative); Blood Urine Negative (Negative); Color Urine Yellow (Yellow); Glucose Urine UA Negative (Negative); Ketones Urine Trace (Negative); Leukocyte Esterase Ur 1+ LEU/UL (Negative); Nitrate Urine Negative (Negative); Protein Urine 1+ (Negative); Urobilinogen Urine 0.2 mg/dL (0.2-1.0)
[2023-11-20 17:11] LABS: Add Urine Microscopic? YES; RBC Urine 0-2 /hpf (0-2); Squamous Epithelial Cell Urine Rare /hpf (Few)
[2023-11-20 17:12] LABS: Bacteria Urine 3+ /hpf
== END 2023-11-20 16:42 | disposition home or self-care (01) ==
LOC: CHSLAB 16:44
PROVIDERS: Visit Provider Nurse Practitioner Family
DX: N39.41 Urge incontinence (principal)
CPT/HCPCS: 81001; 87077; 87086; 87088; 87186

== ENCOUNTER 2023-12-07 06:23 | Outpatient (CLI) | payer MEDICARE, SELFPAY ==
[2023-12-07 07:04] LABS: Appearance Urine Clear (Clear); Bilirubin Urine Negative (Negative); Blood Urine Negative (Negative); Color Urine Yellow (Yellow); Glucose Urine UA Negative (Negative); Ketones Urine Negative (Negative); Leukocyte Esterase Ur Negative LEU/UL (Negative); Nitrate Urine Positive (Negative); Protein Urine Negative (Negative); Specific Grav Ur 1.015 (1.010-1.020); Urobilinogen Urine 0.2 mg/dL (0.2-1.0)
[2023-12-07 07:09] LABS: Add Urine Microscopic? YES; Bacteria Urine 3+ /hpf; RBC Urine None seen /hpf (0-2); Squamous Epithelial Cell Urine Rare /hpf (Few); WBC Urine 0-3 /hpf (0-3)
== END 2023-12-07 06:24 | disposition home or self-care (01) ==
LOC: CHSLAB 06:25
PROVIDERS: PCP Nurse Practitioner Family; Visit Provider Nurse Practitioner Family
DX: N39.41 Urge incontinence (principal); Z87.898 Personal history of other specified conditions
CPT/HCPCS: 81001; 87077; 87086; 87088; 87186

== ENCOUNTER 2024-01-08 07:20 | Outpatient (CLI) | payer MEDICARE, SELFPAY ==
[2024-01-08 07:51] LABS: Appearance Urine Sl Cloudy (Clear); Bilirubin Urine Negative (Negative); Blood Urine Negative (Negative); Color Urine Light Yellow (Yellow); Glucose Urine UA Negative (Negative); Ketones Urine Negative (Negative); Leukocyte Esterase Ur 2+ LEU/UL (Negative); Nitrate Urine Positive (Negative); Protein Urine Negative (Negative); Urobilinogen Urine 0.2 mg/dL (0.2-1.0)
[2024-01-08 08:04] LABS: Add Urine Microscopic? YES; Bacteria Urine 3+ /hpf; RBC Urine None seen /hpf (0-2); Squamous Epithelial Cell Urine Rare /hpf (Few); WBC Urine 51-75 /hpf (0-3)
== END 2024-01-08 07:21 | disposition home or self-care (01) ==
LOC: CHSLAB 07:24
PROVIDERS: PCP Nurse Practitioner Family; Visit Provider Nurse Practitioner Family
DX: N39.41 Urge incontinence (principal)
CPT/HCPCS: 81001; 87077; 87086; 87088; 87186

== ENCOUNTER 2024-02-19 12:03 | Outpatient (CLI) | payer MEDICARE, SELFPAY ==
[2024-02-19 12:56] LABS: Add Urine Microscopic? YES; Appearance Urine Clear (Clear); Bilirubin Urine Negative (Negative); Blood Urine Negative (Negative); Color Urine Yellow (Yellow); Glucose Urine UA Negative (Negative); Ketones Urine Negative (Negative); Leukocyte Esterase Ur 2+ LEU/UL (Negative); Nitrate Urine Negative (Negative); Protein Urine Negative (Negative); RBC Urine None seen /hpf (0-2); Urobilinogen Urine 0.2 mg/dL (0.2-1.0); WBC Urine 0-5 /hpf (0-3)
[2024-02-19 12:57] LABS: Bacteria Urine Trace /hpf; Mucus Urine Few /lpf; Squamous Epithelial Cell Urine Few /hpf (Few)
== END 2024-02-19 12:04 | disposition home or self-care (01) ==
LOC: CHSLAB 12:06
PROVIDERS: PCP Nurse Practitioner Family; Visit Provider Nurse Practitioner Family
DX: R82.90 Unspecified abnormal findings in urine (principal); Z87.898 Personal history of other specified conditions
CPT/HCPCS: 81001; 87086

== ENCOUNTER 2024-03-08 08:37 | Outpatient (CLI) | payer MEDICARE, SELFPAY ==
[2024-03-08 08:47] LABS: Add Urine Microscopic? YES; Appearance Urine Clear (Clear); Bilirubin Urine Negative (Negative); Blood Urine Negative (Negative); Color Urine Yellow (Yellow); Glucose Urine UA Negative (Negative); Ketones Urine Negative (Negative); Leukocyte Esterase Ur Trace LEU/UL (Negative); Nitrate Urine Negative (Negative); Protein Urine Negative (Negative); RBC Urine None seen /hpf (0-2); Squamous Epithelial Cell Urine None Seen /hpf (Few); Urobilinogen Urine 0.2 mg/dL (0.2-1.0); WBC Urine 0-3 /hpf (0-3)
[2024-03-08 08:48] LABS: Bacteria Urine Rare /hpf
== END 2024-03-08 08:38 | disposition home or self-care (01) ==
LOC: CHSLAB 08:39
PROVIDERS: PCP Nurse Practitioner Family; Visit Provider Nurse Practitioner Family
DX: Z87.898 Personal history of other specified conditions (principal)
CPT/HCPCS: 81001

== ENCOUNTER 2024-07-09 06:16 | Outpatient (CLI) | payer MEDICARE, SELFPAY ==
[2024-07-09 06:42] LABS: Add Urine Microscopic? YES; Appearance Urine Sl Cloudy (Clear); Bilirubin Urine Negative (Negative); Blood Urine Negative (Negative); Color Urine Yellow (Yellow); Glucose Urine UA Negative (Negative); Ketones Urine Trace (Negative); Leukocyte Esterase Ur 1+ LEU/UL (Negative); Nitrate Urine Negative (Negative); Protein Urine Trace (Negative); Specific Grav Ur 1.025 (1.010-1.020); Urobilinogen Urine 0.2 mg/dL (0.2-1.0); pH Urine 5.5 (5.0-8.0)
[2024-07-09 06:49] LABS: Bacteria Urine Trace /hpf; Mucus Urine Few /lpf; RBC Urine None seen /hpf (0-2); Squamous Epithelial Cell Urine Few /hpf (Few); WBC Urine 31-50 /hpf (0-3)
[2024-07-09 07:15] LABS: Cholesterol 213 mg/dL (0-200); HDL Direct 50 mg/dL (40-60); LDL Cholesterol Calculated 107 mg/dL (<130); Triglycerides 281 mg/dL (0-150)
[2024-07-11 04:18] LABS: Vitamin D 25 Hydroxy 82 ng/mL (30-100)
== END 2024-07-09 06:17 | disposition home or self-care (01) ==
LOC: CHSLAB 06:18
PROVIDERS: PCP Nurse Practitioner Family; Visit Provider Nurse Practitioner Family
DX: N39.0 Urinary tract infection, site not specified (principal); Z79.899 Other long term (current) drug therapy; E78.5 Hyperlipidemia, unspecified; Z13.6 Encounter for screening for cardiovascular disorders; R82.90 Unspecified abnormal findings in urine
CPT/HCPCS: 36415; 80061; 81001; 82306; 87086; 87088

== ENCOUNTER 2024-09-10 07:32 | Outpatient (CLI) | payer MEDICARE, SELFPAY ==
--- NOTE | ~2024-09-10 | MM_ITS ---
EXAMINATION: MM screening [facility] BI w tara HISTORY: Screening mammogram TECHNIQUE: Craniocaudal and mediolateral oblique 3-D tomosynthesis images were obtained and synthetic 2-D images were generated. CAD analysis was submitted and interpreted. COMPARISON: 08/21/2023, 08/19/2022, 08/12/2022, 01/14/2021 BREAST PARENCHYMAL COMPOSITION:Not Dense. There are scattered areas of fibroglandular density. FINDINGS: No suspicious mass, calcification, or architectural distortion are identified in either obdulio ast to suggest malignancy. There has been no suspicious interval change. IMPRESSION: No mammographic evidence of malignancy. Recommend routine screening mammography in one year. BI-RADS Category 1: Negative Reviewed, dictated and finalized at location . CTOR OF LOGISTICS
--- NOTE | ~2024-09-10 | DEXA_ITS ---
Bone Density Report Name: GUEVARA CHÁVEZ Age: 79 Sex: Female Ethnicity: White Date of : 1945 Indication: postmenopausal; screening for osteoporosis; height loss; cancer; hysterectomy; Referring Provider: Becky Conroy Study: Bone densitometry was performed. Exam Date: September 10, 2024 Accession number: [id number] Bone Density: Region BMD T-score Z-score Classification AP Spine(L1, L2, L3) 1.150 1.2 3.9 Normal Femoral Neck (Left) 0.800 -0.4 1.9 Normal Total Hip (Left) 0.870 -0.6 1.6 Normal Femoral Neck (Right) 0.812 -0.3 2.0 Normal Total Hip (Right) 0.835 -0.9 1.3 Normal Femoral Neck Mean 0.806 -0.4 2.0 Normal Total Hip Mean 0.853 -0.7 1.4 Normal World Health Organization criteria for BMD impression classify patients as: Normal (T-score at or above -1.0), Osteopenia (T-score between -1.0 and -2.5), or Osteoporosis (T-score at or below -2.5). 10-year Fracture Risk: FRAX not reported because: All T-scores for Spine Total, Hip Total, Femoral Neck at or above -1.0 Clinical Information Provided by Patient: Has the following medical conditions: Cancer, Hysterectomy, MELANOMA Patient maximum height was 65.0 Menopause Age: 43 No regular weight bearing exercise Drinks caffeinated beverages Onset of menses at age 9 Number of children 0 Impression: The patient has normal bone mass. Discussion: BONE DENSITY IS ABOVE THE MINIMUM DESIRABLE LEVEL AT ALL SKELETAL SITES TESTED. This patient?s bone mineral density is above the minimum desirable level (T-score -1.0 or better) at all sites measured. The patient should follow a healthful lifestyle (good nutrition with adequate calcium and vitamin D, and appropriate weight-bearing exercise). Follow-Up: Consider repeating this study in 5 years or sooner if there is some new clinical indication. Reported by: DANNIE on 09/13/2024 3:19:00 PM. Reviewed, dictated and finalized at location A.
--- OUTSIDE RECORDS SUMMARY | 2024-09-17 04:20 | XMS_ITS | Encounter Summary ---
Author Organization [facility] Healthcare Address [address] [place] [address] Care Team Providers Care Automatic Packer Operator Name Role Phone Becky Conroy NP Primary Care Provider [phone] Jose Chairez MD PhD Unavailable [phone] Evelin Lofton MD Unavailable [phone] Reason for Visit * Episode Based Medications (Routine) - Closed Specialty Diagnoses / Procedures Referred By Contmarques t Referred To Contact Oncology Diagnoses Malignant melanoma of unknown origin (HCC) Jose Chairez MD PhD [address] [facility] [address] [place] [address] Phone: tel: fax: [address] [address] Phone: tel: fax: Referral ID Status Reason Start Date Expiration Date Visits Re quested Visits Authorized [id number] Closed 05/27/2024 09/04/2024 30 Encounter Details Date Type Department Care Team (Late st Contact Info) Description 06/11/2024 8:45 AM CDT Lab [address] [address] Malignant melanoma of unknown origin (HCC) Social History Tobacco Use Types Packs/Day Years Used Date Smoking Tobacco: Former Cigarettes 0.5 9 1 980 - 1988 Passive Smoke Exposure: Never Smokeless Tobacco: Never AUDIT-C Answer Date Recorded Q1: How often do you have a drink containing alc ohol? Monthly or less 11/10/2023 Q2: How many drinks containi ng alcohol do you have on a typical day when you are drinking? 1 or 2 11/10/2023 Q3: How often do you have si x or more drinks on one occasion? Never 11/10/2023 Personal Safety Answer Date Recorded Have you ever been in or are you currently in a harmful physical or emotional relationship or is someone making you feel afraid or unsafe? 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 Gender Identity Not on file Sexual Orientation Not on file documented as of this encounter Plan of Treatment Not on file documented as of this encounter Procedures Procedure Name Priority Date/Time Associated Diagnosis Comments EGFR STAT 06/11/2024 8:18 AM CDT Malignant melanoma of unknown origin (HCC) DIFFERENTIAL AUTO Routine 06/11/2024 8:1 8 AM CDT Malignant melanoma of unknown origin (HCC) THYROID FUNCTION CASCADE Routine 06/11/2024 8:18 AM CDT Malignant melanoma of unknown origin (HCC) CBC WITH AUTO DIFFERENTIAL Routine 06/11/2024 8:18 AM CDT Malignant melanoma of unknown origin (HCC) LACTATE DEHYDROGENASE Routine 06/11/2024 8:18 AM CDT Malignant melanoma of unknown origin (HCC) COMPREHENSIVE METABOLIC PANEL STAT 06/11/2024 8:18 AM CDT Malignant melanoma of unknown origin (HCC) documented in this encounter Results * eGFR (06/11/2024 8:18 AM CDT) eGFR 88 >=60 mL/min/1. 73 m2 Comment: Interpretive Data Reference Interval Normal ?>/= 90 mL/min/1.73m2 Mildly decreased* ? 60 - 89 mL/min/1.73m2 Mildly to moderately decreased ?45 - 59 mL/min/1.73m2 Moderately to severely decreased ??30 - 44 mL/min/1.73m2 Severely decreased ?15 - 29 mL/min/1.73m2 Kidney Failure ?< 15 ??mL/min/1.73m2 *Relative to young adult level Estimated glomerular filtration rate is determined by the 2020 CKD-EPI equation recommended by the National Kidney Foundation (A Unifying Approach to GFR Estimation: Recommendations of the NKF-ASK Task Force on Reassessing the Inclusion of Race in Diagnosing Kidney Disease, JASN 2020). The CKD-EPI equation should not be used for patients with unstable renal function and has not been validated in children and those over 70. Current interpretive data was last reviewed 2021. Blood 06/11/2024 8:18 AM CDT 06/11/2024 8:18 AM CDT us Daryl Glasgow NP LAB BLOOD ORDERABLES Valencia valadez Result [facility] [place] [address] * Differential, auto (06/11/2024 8:18 AM CDT) Pathologist [facility] Neutrophil abs 6.5 1.5 - 6.5 K/cumm Comment:Testing performed by : [facility], [address] [facility] [address] Imm gran abs 0.0 0.0 - 0.1 K/cumm [facility] Lymphocyte abs 2.4 0.8 - 3.3 K/cumm [facility] Monocyte abs 0.7 0.2 - 0.8 K/cumm [facility] Eosinophil abs 0.2 0.0 - 0.5 K/cumm [facility] Basophil abs 0.1 0.0 - 0.1 K/cumm [facility] Neutrophil pct 65.3 % [facility] Comment: Interpretive Data Percent cell count reference ranges are not reported, since discordance with absolute values may lead to misinterpretation of CBC data. Current Interpretive Data was last revised on 2017. Imm gran pct 0.4 % [facility] Comment: Interpretive Data Percent cell count reference ranges are not reported, since discordance with absolute values may lead to misinterpretation of CBC data. Current Interpretive Data was last revised on 2017. Lymphocyte pct 24.3 % [facility] Comment: Interpretive Data Percent cell count reference ranges are not reported, since discordance with absolute values may lead to misinterpretation of CBC data. Current Interpretive Data was last revised on 2017. Monocyte pct 7.0 % [facility] Comment: Interpretive Data Percent cell count reference ranges are not reported, since discordance with absolute values may lead to misinterpretation of CBC data. Current Interpretive Data was last revised on 2017. Eosinophil pct 2.3 % [facility] Comment: Interpretive Data Percent cell count reference ranges are not reported, since discordance with absolute values may lead to misinterpretation of CBC data. Current Interpretive Data was last revised on 2017. Basophil pct 0.7 % [facility] Comment: Interpretive Data Percent cell count reference ranges are not reported, since discordance with absolute values may lead to misinterpretation of CBC data. Current Interpretive Data was last revised on 2017. Blood 06/11/2024 8:18 AM CDT 06/11/2024 8:18 AM CDT us Daryl Glasgow NP LAB BLOOD ORDERABLES Valencia l Result [facility] Department [place] [address] * Thyroid Function [place] (06/11/2024 8:18 AM CDT) TSH 1.07 0.30 - 4.20 mcIUnit/mL Blood 06/11/2024 8:18 AM CDT 06/11/2024 10:09 AM CDT Daryl Glasgow NP LAB BLOOD ORDERABLES Valencia l Result Performing Organization Address City/[facility] Co de Phone Number [facility] [place] [address] * Lactate dehydrogenase (LD) (06/11/2024 8:18 AM CDT) [facility] Lactate dehydrogenase (LDH) 198 100 - 250 Units/L Comment:Testing performed by : [address] [address] Blood 06/11/2024 8:18 AM CDT 06/11/2024 8:18 AM CDT Daryl Glasgow MORTGAGE MANAGER LAB BLOOD ORDERABLES Valencia l Result Performing Organization Address [facility] de Phone Number [facility] [place] [address] * (ABNORMAL) CBC with auto differential (06/11/2024 8:18 AM CDT) [facility] WBC 10.0(H) 3.8 - 9.9 K/cumm Comment:Testing performed by : [address] [address] Hgb 14.0 11.9 - 15.5 g/dL [facility] Comment:Testing performed by : [address] [address] Hct 42.6 35.6 - 45.5 % [facility] Comment:Testing performed by : [address] [address] Plt 273 150 - 400 K/cumm [facility] Comment:Testing performed by : [address] [address] MPV 9.1 9.1 - 12.3 fL [facility] RBC 4.81 3.90 - 5.20 M/cumm [facility] MCV 88.6 81.3 - 96.4 fL [facility] MCH 29.1 27.1 - 33.3 pg [facility] MCHC 32.9 32.3 - 35.7 g/dL [facility] RDW CV 13.1 11.1 - 14.9 % [facility] RDW SD 42.5 35.7 - 48.1 fL [facility] NRBC abs 0.00 0.00 - 0.01 K/cumm [facility] Blood 06/11/2024 8:18 AM CDT 06/11/2024 8:18 AM CDT us Daryl Glasgow NP LAB BLOOD ORDERABLES Valencia valadez Result [facility] Department [place] [address] * Comprehensive metabolic panel (06/11/2024 8:18 AM CDT) Pathologist [facility] Sodium 139 135 - 145 mmol/L Comment:Testing performed by : [facility], [address] [place] [address] Potassium, pl 3.9 3.3 - 4.9 mmol/L [facility] Chloride 102 97 - 110 mmol/L [facility] CO2 28 22 - 32 mmol/L [facility] Anion gap 9 2 - 15 mmol/L [facility] BUN 17 6 - 25 mg/dL [facility] Creatinine 0.66 0.60 - 1.10 mg/dL [facility] Glucose 74 70 - 199 mg/dL [facility] Comment: Interpretive Data Fasting glucose >/= 126 mg/dl is diagnostic for diabetes. ?? Fasting is defined as no caloric intake for at least 8 hours. Fasting glucose between 100 mg/dl to 125 mg/dl is diagnostic of prediabetes. In a patient with classic symptoms of hyperglycemia or hyperglycemic crisis, a random glucose >/= 200 mg/dl is diagnostic for diabetes. In the absence of unequivocal hyperglycemia, results should be confirmed by repeat testing. The classification and Diagnosis of Diabetes Diabetes Care 2021; 46: S19-S40. Current interpretive data was last revised 2022. Calcium 9.9 8.5 - 10.3 mg/dL [facility] Bilirubin, total 0.6 0.1 - 1.2 mg/dL [facility] Protein, pl 7.5 6.5 - 8.5 g/dL [facility] Albumin 4.6 3.5 - 5.0 g/dL [facility] Alk phos 48 40 - 130 Units/L [facility] ALT 17 7 - 45 Units/L [facility] AST 23 10 - 45 Units/L [facility] Blood 06/11/2024 8:18 AM CDT 06/11/2024 8:18 AM CDT Daryl Glasgow MORTGAGE MANAGER LAB BLOOD ORDERABLES Valencia valadez Result [facility] Department [place] [address] documented in this encounter Visit Diagnoses Diagnosis Malignant melanoma of unknown origin (HCC) documented in this encounter Orders Appointment Requests Count Last Ordered Date Fi rst Ordered Date ONCBCN LAB APPOINTMENT 1 06/11/2024 documented in this encounter Care Teams Automatic Packer Operator Relationship Specialty Start Date End Date Becky Conroy NP [address] [place] [address] PCP - General Nurse Practitioner 07/06/23 Jose Chairez MD PhD [address] [facility] [address] [place] [address] Medical Oncologist/Size Painter Medical Oncology 08/14/23 Evelin Lofton MD [address] [place] [address] Referring Physician Cardiovascular Disease 08/14/23 documented as of this encounter
--- OUTSIDE RECORDS SUMMARY | 2024-09-17 04:20 | XMS_ITS | Encounter Summary ---
Author Organization [facility] Healthcare Address [address] [place] [address] Care Team Providers Care Pressroom Supervisor Name Role Phone Becky Conroy NP Primary Care Provider [phone] Jose Chairez MD PhD Unavailable [phone] Evelin Lofton MD Unavailable [phone] Reason for Visit * Episode Based Medications (Routine) - Closed Specialty Diagnoses / Procedures Referred By Contmarques t Referred To Contact Oncology Diagnoses Malignant melanoma of unknown origin (HCC) Jose Chairez MD PhD [address] [facility] [address] [place] [address] Phone: tel: fax: [address] [address] Phone: tel: fax: Referral ID Status Reason Start Date Expiration Date Visits Re quested Visits Authorized [id number] Closed 05/27/2024 09/04/2024 30 Encounter Details Date Type Department Care Team (Late st Contact Info) Description 08/13/2024 10:30 AM REPORTING CONSULTANT Lab [address] [address] Malignant melanoma of unknown origin [...] on file Legal Sex Female 1:54 AM REPORTING CONSULTANT Gender Identity Not on file Sexual Orientation Not on file documented as of this encounter Plan of Treatment Not on file documented as of this encounter Procedures Procedure Name Priority Date/Time Associated Diagnosis Comments EGFR STAT 08/13/2024 9:43 AM REPORTING CONSULTANT Malignant melanoma of unknown origin (HCC) DIFFERENTIAL AUTO Routine 08/13/2024 9:4 3 AM REPORTING CONSULTANT Malignant melanoma of unknown origin (HCC) THYROID FUNCTION CASCADE Routine 08/13/2024 9:43 AM REPORTING CONSULTANT Malignant melanoma of unknown origin (HCC) CBC WITH AUTO DIFFERENTIAL Routine 08/13/2024 9:43 AM REPORTING CONSULTANT Malignant melanoma of unknown origin (HCC) LACTATE DEHYDROGENASE Routine 08/13/2024 9:43 AM REPORTING CONSULTANT Malignant melanoma of unknown origin (HCC) COMPREHENSIVE METABOLIC PANEL STAT 08/13/2024 9:43 AM REPORTING CONSULTANT Malignant melanoma of unknown origin (HCC) documented in this encounter Results * eGFR (08/13/2024 9:43 AM REPORTING CONSULTANT) eGFR 88 >=60 mL/min/1. 73 m2 Comment: [...] interpretive data was last reviewed 2021. Blood 08/13/2024 9:43 AM REPORTING CONSULTANT 08/13/2024 9:43 AM REPORTING CONSULTANT us Jose Chairez MD PhD LAB BLOOD ORDERABLES Final Result [facility] Department [place] [address] * (ABNORMAL) Differential, auto (08/13/2024 9:43 AM REPORTING CONSULTANT) Pathologist [facility] Neutrophil abs 5.3 1.5 - 6.5 K/cumm Comment:Testing performed by : [facility], [address] [place] [address] Imm gran abs 0.0 0.0 - 0.1 K/cumm [facility] Lymphocyte abs 2.6 0.8 - 3.3 K/cumm [facility] Monocyte abs 0.9(H) 0.2 - 0.8 K/cumm [facility] Eosinophil abs 0.2 0.0 - 0.5 K/cumm [facility] Basophil abs 0.1 0.0 - 0.1 K/cumm [facility] Neutrophil pct 58.4 % [facility] Comment: Interpretive Data Percent cell count reference ranges are not reported, since discordance with absolute values may lead to misinterpretation of CBC data. Current Interpretive Data was last revised on 2017. Imm gran pct 0.3 % [facility] Comment: Interpretive Data Percent cell count reference ranges are not reported, since discordance with absolute values may lead to misinterpretation of CBC data. Current Interpretive Data was last revised on 2017. Lymphocyte pct 28.5 % [facility] Comment: Interpretive Data Percent cell count reference ranges are not reported, since discordance with absolute values may lead to misinterpretation of CBC data. Current Interpretive Data was last revised on 2017. Monocyte pct 9.9 % [facility] Comment: Interpretive Data Percent cell count reference ranges are not reported, since discordance with absolute values may lead to misinterpretation of CBC data. Current Interpretive Data was last revised on 2017. Eosinophil pct 2.1 % [facility] Comment: Interpretive Data Percent cell count reference ranges are not reported, since discordance with absolute values may lead to misinterpretation of CBC data. Current Interpretive Data was last revised on 2017. Basophil pct 0.8 % [facility] Comment: Interpretive Data Percent cell count reference ranges are not reported, since discordance with absolute values may lead to misinterpretation of CBC data. Current Interpretive Data was last revised on 2017. Blood 08/13/2024 9:43 AM REPORTING CONSULTANT 08/13/2024 9:43 AM REPORTING CONSULTANT us Jose Chairez MD PhD LAB BLOOD ORDERABLES Final Result [facility] Department [place] [address] * Thyroid Function [place] (08/13/2024 9:43 AM REPORTING CONSULTANT) TSH 2.15 0.30 - 4.20 mcIUnit/mL Blood 08/13/2024 9:43 AM REPORTING CONSULTANT 08/13/2024 10:39 AM REPORTING CONSULTANT Jose Chairez MD PhD LAB BLOOD ORDERABLES Final Result Performing Organization Address City/[facility] Co de Phone Number [facility] [place] [address] * Lactate dehydrogenase (LD) (08/13/2024 9:43 AM REPORTING CONSULTANT) Pathologist [facility] Lactate dehydrogenase (LDH) 186 100 - 250 Units/L Comment:Testing performed by : [address] [address] Blood 08/13/2024 9:43 AM REPORTING CONSULTANT 08/13/2024 9:43 AM REPORTING CONSULTANT Jose Chairez MD PhD LAB BLOOD ORDERABLES Final Result Performing Organization Address [facility] de Phone Number [facility] [place] [address] * CBC with auto differential (08/13/2024 9:43 AM REPORTING CONSULTANT) [facility] WBC 9.0 3.8 - 9.9 K/cumm Comment:Testing performed by : [address] [address] Hgb 13.9 11.9 - 15.5 g/dL [facility] Comment:Testing performed by : [address] [address] Hct 40.5 35.6 - 45.5 % [facility] Comment:Testing performed by : [address] [address] Plt 232 150 - 400 K/cumm [facility] Comment:Testing performed by : [address] [address] MPV 9.4 9.1 - 12.3 fL [facility] RBC 4.75 3.90 - 5.20 M/cumm [facility] MCV 85.3 81.3 - 96.4 fL [facility] MCH 29.3 27.1 - 33.3 pg [facility] MCHC 34.3 32.3 - 35.7 g/dL [facility] RDW CV 12.8 11.1 - 14.9 % [facility] RDW SD 40.2 35.7 - 48.1 fL [facility] NRBC abs 0.00 0.00 - 0.01 K/cumm [facility] Blood 08/13/2024 9:43 AM REPORTING CONSULTANT 08/13/2024 9:43 AM REPORTING CONSULTANT us Jose Chairez MD PhD LAB BLOOD ORDERABLES Final Result [facility] Department [place] [address] * Comprehensive metabolic panel (08/13/2024 9:43 AM REPORTING CONSULTANT) Sodium 142 135 - 145 mmol/L Comment:Testing performed by : [facility], [address] [place] [address] Potassium, pl 3.5 3.3 - 4.9 mmol/L [facility] Chloride 103 97 - 110 mmol/L [facility] CO2 30 22 - 32 mmol/L [facility] Anion gap 9 2 - 15 mmol/L [facility] BUN 16 6 - 25 mg/dL [facility] Creatinine 0.65 0.60 - 1.10 mg/dL [facility] Glucose 94 70 - 199 mg/dL [facility] Comment: Interpretive Data Fasting glucose >/= 126 [...] classification and Diagnosis of Diabetes Diabetes Care 202; 46: S19-S40. Current interpretive data was last revised 2022. Calcium 10.1 8.5 - 10.3 mg/dL [facility] Bilirubin, total 0.5 0.1 - 1.2 mg/dL [facility] Protein, pl 7.8 6.5 - 8.5 g/dL [facility] Albumin 4.6 3.5 - 5.0 g/dL [facility] Alk phos 54 40 - 130 Units/L [facility] ALT 16 7 - 45 Units/L [facility] AST 22 10 - 45 Units/L [facility] Blood 08/13/2024 9:43 AM REPORTING CONSULTANT 08/13/2024 9:43 AM REPORTING CONSULTANT us Jose Chairez MD PhD LAB BLOOD ORDERABLES Final Result [facility] Department [place] [address] documented in this encounter Visit Diagnoses Diagnosis Malignant melanoma of unknown origin (HCC) documented in this encounter Orders Appointment Requests Count Last Ordered Date Fi rst Ordered Date ONCBCN LAB APPOINTMENT 1 08/13/2024 documented in this encounter Care Teams Pressroom Supervisor Relationship Specialty Start Date End Date Becky Conroy NP [address] [place] [address] PCP - General Nurse Practitioner 07/06/23 Jose Chairez MD PhD [address] [facility] [address] [place] [address] Medical Oncologist/Payroll Human Resources Assistant Medical Oncology 08/14/23 Evelin Lofton MD [address] [place] [address] Referring Physician Cardiovascular Disease 08/14/23 documented as of this encounter
--- OUTSIDE RECORDS SUMMARY | 2024-09-17 04:20 | XMS_ITS | Encounter Summary ---
Author Organization [facility] Healthcare Address [address] [place] [address] Care Team Providers Care Aluminum Siding Mechanic Name Role Phone Becky Conroy NP Primary Care Provider [phone] Jose Chairez MD PhD Unavailable [phone] Evelin Lofton MD Unavailable [phone] Reason for Visit * Reason Comments Immunotherapy * Episode Based Medications (Routine) - Closed Specialty Diagnoses / Procedures Referred By Contac t Referred To Contact Oncology Diagnoses Malignant melanoma of unknown origin (HCC) Jose Chairez MD PhD [address] 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 female who presents for treatment cycle 14, day 1 of pembrolizumab. Pre-treatment Nursing Assessment Nursing Assessment LOC: Alert, Awake Fatigue: None Any falls since your last visit?: No Orientation: Oriented x4 Behavior: Calm Speech: Clear Language: No aphasia Vision: At baseline Peripheral Neuropathy: No Oral Mucosa Grade: Normal (0) Pt states has potential to be ?: N/A Shortness of Breath?: No Cough: Absent Appetite: Good Have You Recently Lost Weight Without Trying?: No Have you been eating poorly because of a decreased appetite?: No Malnutrition Screening Tool (MST) Score: 0 Nausea/Vomiting: No Diarrhea: No Constipation: No Last BM Date: 05/21/24 Skin Condition/Temp: Warm Rash Location: bilateral legs - unchanged - has cream and MD aware Swelling: No Encounter Vitals BP: 153/77 (05/21/2024 9:35 AM) Pulse: 70 (05/21/2024 9:35 AM) Resp: 16 (05/21/2024 9:35 AM) Temp: 36.6 ??C (97.8 ??F) (05/21/2024 9:35 AM) Temp src: Oral (05/21/2024 9:35 AM) SpO2: 96 % (05/21/2024 9:35 AM) Weight: 66.8 kg (147 lb 3.2 oz) (05/21/2024 9:35 AM) Pain Score: 0 - No pain Treatment Patient: met treatment parameters Pre blood return: Mariposa Baker tolerated treatment well. Patient was frequently observed and monitored throughout the administration of their treatment. Post blood return: Brisk IV access post infusion: NS Patient Education Treatment Education: Information/teaching given to patient including process and procedure related to today's visit Response: Verbalizes understanding Discharge Plan Discharge instructions given to patient. Future appointments given and reviewed with treatment plan. Discharge Mode: Ambulatory Accompanied by: Self Discharged To: Home in stable condition documented in this encounter Plan of Treatment Not on file documented as of this encounter Visit Diagnoses Diagnosis Malignant melanoma of unknown origin (HCC)- Primary documented in this encounter Administered Medications Inactive Administered Medications - up to 3 most recent administrations Medication Order MAR Action Action Date Dose Rate Site pembrolizumab (KEYTRUDA) 200 mg in sodium chloride 0.9% 100 mL 200 mg, intravenous, at 236 mL/hr, Administer over 30 Minutes, Once, On Mon05/21/24 at 1045, For 1 dose, Use 0.2-5 micron filterIndications:Malignant melanoma of unknown origin (HCC) New Bag 05/21/2024 10:30 AM CDT 200 mg 236 mL/hr documented in this encounter Orders Medications Ordered That Stalin ht Not Have Been Administered Count Last Ordered Date First Ordered Date pembrolizumab (KEYTRUDA) 200 mg in sodium chloride 0.9% 100 mL 1 05/21/2024 Nursing Count Last Ordered Date First Orde red Date ONCBCN PROVIDER COMMUNICATION 2 1 4 ONCBCN TREATMENT PARAMETERS 3 1 05/21/2024 Appointment Requests Count Last Ordered Date Fi rst Ordered Date ONCBCN RETURN CHEMO 1.5HRS 1 05/21/2024 documented in this encounter Care Teams Aluminum Siding Mechanic Relationship Specialty Start Date End Date Becky Conroy NP [address] [place] [address] PCP - General Nurse Practitioner 07/06/23 Jose Chairez MD PhD [address] [facility] [address] [place] [address] Medical Oncologist/Pediatric Speech Language Pathologist Medical Oncology 08/14/23 Evelin Lofton MD [address] [place] [address] Referring Physician Cardiovascular Disease 08/14/23 documented as of this encounter
--- OUTSIDE RECORDS SUMMARY | 2024-09-17 04:20 | XMS_ITS | Encounter Summary ---
Author Organization [facility] Healthcare Address [address] [place] [address] Care Team Providers Care Patcher Name Role Phone Becky Conroy NP Primary Care Provider [phone] Jose Chairez MD PhD Unavailable [phone] Evelin Lofton MD Unavailable [phone] Reason for Visit * Episode Based Medications (Routine) - Closed Specialty Diagnoses / Procedures Referred By Contac t Referred To Contact Oncology Diagnoses Malignant melanoma of unknown origin (HCC) Jose Chairez MD PhD [address] [facility] [address] [place] [address] Phone: tel: fax: [address] [address] Phone: tel: fax: Referral ID Status Reason Start Date Expiration Date Visits Re quested Visits Authorized [id number] Closed 05/27/2024 09/04/2024 30 Encounter Details Date Type Department Care Team (Late st Contact Info) Description 07/23/2024 7:45 AM CREDIT SPECIALIST Lab [address] [address] Malignant melanoma of unknown origin [...] on file Legal Sex Female 1:54 AM CREDIT SPECIALIST Gender Identity Not on file Sexual Orientation Not on file documented as of this encounter Plan of Treatment Not on file documented as of this encounter Procedures Procedure Name Priority Date/Time Associated Diagnosis Comments EGFR STAT 07/23/2024 7:49 AM CREDIT SPECIALIST Malignant melanoma of unknown origin (HCC) DIFFERENTIAL AUTO Routine 07/23/2024 7:4 9 AM CREDIT SPECIALIST Malignant melanoma of unknown origin (HCC) THYROID FUNCTION CASCADE Routine 07/23/2024 7:49 AM CREDIT SPECIALIST Malignant melanoma of unknown origin (HCC) CBC WITH AUTO DIFFERENTIAL Routine 07/23/2024 7:49 AM CREDIT SPECIALIST Malignant melanoma of unknown origin (HCC) MANUAL DIFFERENTIAL Routine 07/23/2024 7 :49 AM CREDIT SPECIALIST Malignant melanoma of unknown origin (HCC) LACTATE DEHYDROGENASE Routine 07/23/2024 7:49 AM CREDIT SPECIALIST Malignant melanoma of unknown origin (HCC) COMPREHENSIVE METABOLIC PANEL STAT 07/23/2024 7:49 AM CREDIT SPECIALIST Malignant melanoma of unknown origin (HCC) documented in this encounter Results * (ABNORMAL) Manual Differential (07/23/2024 7:49 AM CREDIT SPECIALIST) Differential Auto RBC morphology Present(A) [facility] Anisocytosis Slight(A) [facility] Platelet estimate Adequate [facility] Blood 07/23/2024 7:49 AM CREDIT SPECIALIST 07/23/2024 7:49 AM CREDIT SPECIALIST us Daryl Glasgow NP LAB BLOOD ORDERABLES Valencia l Result Performing Organization Address [facility] de Phone Number [facility] Department [place] [address] * eGFR (07/23/2024 7:49 AM CREDIT SPECIALIST) eGFR >90 >=60 mL/min/1. 73 m2 Comment: Interpretive Data [...] interpretive data was last reviewed 2021. Blood 07/23/2024 7:49 AM CREDIT SPECIALIST 07/23/2024 7:49 AM CREDIT SPECIALIST us Daryl Glasgow NP LAB BLOOD ORDERABLES Valencia l Result Performing Organization Address [facility] Co de Phone Number [facility] Department [place] [address] * Differential, auto (07/23/2024 7:49 AM CREDIT SPECIALIST) Neutrophil abs 4.0 1.5 - 6.5 K/cumm Comment:Testing performed by : [facility], [address] [facility] [address] Imm gran abs 0.0 0.0 - 0.1 K/cumm [facility] Lymphocyte abs 2.5 0.8 - 3.3 K/cumm [facility] Monocyte abs 0.6 0.2 - 0.8 K/cumm [facility] Eosinophil abs 0.3 0.0 - 0.5 K/cumm [facility] Basophil abs 0.1 0.0 - 0.1 K/cumm [facility] Neutrophil pct 53.7 % [facility] Comment: Interpretive Data Percent cell count reference ranges are not reported, since discordance with absolute values may lead to misinterpretation of CBC data. Current Interpretive Data was last revised on 2017. Imm gran pct 0.4 % [facility] Comment: Interpretive Data Percent cell count reference ranges are not reported, since discordance with absolute values may lead to misinterpretation of CBC data. Current Interpretive Data was last revised on 2017. Lymphocyte pct 33.4 % [facility] Comment: Interpretive Data Percent cell count reference ranges are not reported, since discordance with absolute values may lead to misinterpretation of CBC data. Current Interpretive Data was last revised on 2017. Monocyte pct 8.3 % [facility] Comment: Interpretive Data Percent cell count reference ranges are not reported, since discordance with absolute values may lead to misinterpretation of CBC data. Current Interpretive Data was last revised on 2017. Eosinophil pct 3.4 % [facility] Comment: Interpretive Data Percent cell count reference ranges are not reported, since discordance with absolute values may lead to misinterpretation of CBC data. Current Interpretive Data was last revised on 2017. Basophil pct 0.8 % [facility] Comment: Interpretive Data Percent cell count reference ranges are not reported, since discordance with absolute values may lead to misinterpretation of CBC data. Current Interpretive Data was last revised on 2017. Blood 07/23/2024 7:49 AM CREDIT SPECIALIST 07/23/2024 7:49 AM CREDIT SPECIALIST Daryl Glasgow NP LAB BLOOD ORDERABLES Valencia l Result Performing Organization Address [facility] Co de Phone Number [facility] [place] [place] [address] * Thyroid Function Foard (07/23/2024 7:49 AM CREDIT SPECIALIST) TSH 2.26 0.30 - 4.20 mcIUnit/mL Blood 07/23/2024 7:49 AM CREDIT SPECIALIST 07/23/2024 8:48 AM CREDIT SPECIALIST Daryl Glasgow NP LAB BLOOD ORDERABLES Valencia l Result Performing Organization Address [facility] Co de Phone Number [facility] Department [place] [address] * Lactate dehydrogenase (LD) (07/23/2024 7:49 AM CREDIT SPECIALIST) Lactate dehydrogenase (LDH) 213 100 - 250 Units/L Comment:Testing performed by : [address] [address] Blood 07/23/2024 7:49 AM CREDIT SPECIALIST 07/23/2024 7:49 AM CREDIT SPECIALIST Daryl Glasgow NP LAB BLOOD ORDERABLES Valencia l Result Performing Organization Address [facility] [place] [address] * CBC with auto differential (07/23/2024 7:49 AM CREDIT SPECIALIST) WBC 7.4 3.8 - 9.9 K/cumm Comment:Testing performed by : [address] [place] [address] Hgb 13.7 11.9 - 15.5 g/dL [facility] Comment:Testing performed by : [address] [address] Hct 40.4 35.6 - 45.5 % [facility] Comment:Testing performed by : [address] [address] Plt 220 150 - 400 K/cumm [facility] Comment:Testing performed by : [address] [address] MPV 9.3 9.1 - 12.3 fL [facility] RBC 4.67 3.90 - 5.20 M/cumm [facility] MCV 86.5 81.3 - 96.4 fL [facility] MCH 29.3 27.1 - 33.3 pg [facility] MCHC 33.9 32.3 - 35.7 g/dL [facility] RDW CV 13.2 11.1 - 14.9 % [facility] RDW SD 41.2 35.7 - 48.1 fL [facility] NRBC abs 0.00 0.00 - 0.01 K/cumm [facility] Blood 07/23/2024 7:49 AM CREDIT SPECIALIST 07/23/2024 7:49 AM CREDIT SPECIALIST Daryl Glasgow ROLLING MACHINE OPERATOR AUTOMATIC LAB BLOOD ORDERABLES Valencia l Result [facility] Department [place] [address] * (ABNORMAL) Comprehensive metabolic panel (07/23/2024 7:49 AM CREDIT SPECIALIST) Pathologist [facility] Sodium 142 135 - 145 mmol/L Comment:Testing performed by : [address] [address] Potassium, pl 3.6 3.3 - 4.9 mmol/L [facility] Chloride 104 97 - 110 mmol/L [facility] CO2 28 22 - 32 mmol/L [facility] Anion gap 10 2 - 15 mmol/L [facility] BUN 14 6 - 25 mg/dL [facility] Creatinine 0.58(L) 0.60 - 1.10 mg/dL [facility] Glucose 97 70 - 199 mg/dL [facility] Comment: Interpretive Data Fasting glucose >/= 126 [...] interpretive data was last revised 2022. Calcium 9.7 8.5 - 10.3 mg/dL [facility] Bilirubin, total 0.5 0.1 - 1.2 mg/dL [facility] Protein, pl 7.5 6.5 - 8.5 g/dL [facility] Albumin 4.4 3.5 - 5.0 g/dL [facility] Alk phos 54 40 - 130 Units/L [facility] ALT 18 7 - 45 Units/L [facility] AST 22 10 - 45 Units/L [facility] Blood 07/23/2024 7:49 AM CREDIT SPECIALIST 07/23/2024 7:49 AM CREDIT SPECIALIST Daryl Glasgow NP LAB BLOOD ORDERABLES Valencia l Result [facility] Department [place] [address] documented in this encounter Visit Diagnoses Diagnosis Malignant melanoma of unknown origin (HCC) documented in this encounter Orders Appointment Requests Count Last Ordered Date Fi rst Ordered Date ONCBCN LAB APPOINTMENT 1 07/23/2024 documented in this encounter Care Teams Patcher Relationship Specialty Start Date End Date Becky Conroy NP [address] [place] [address] PCP - General Nurse Practitioner 07/06/23 Jose Chairez MD PhD [address] [facility] [address] [place] [address] Medical Oncologist/Oil Treater Medical Oncology 08/14/23 Evelin Lofton MD [address] [place] [address] Referring Physician Cardiovascular Disease 08/14/23 documented as of this encounter
--- OUTSIDE RECORDS SUMMARY | 2024-09-17 04:20 | XMS_ITS | Encounter Summary ---
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); Melanoma of axilla (HCC) Social History Tobacco Use Types Packs/Day [...] on file Legal Sex Female 1:54 AM DISTILLERY MILLER HELPER Gender Identity Not on file Sexual Orientation Not on file documented as of this encounter Last Filed Vital Signs Vital Sign Reading Time Taken Comments Blood Pressure 156/75 08/27/2024 12:54 PM DISTILLERY MILLER HELPER Pulse 70 08/27/2024 12:54 PM DISTILLERY MILLER HELPER Temperature 36.5 ??C (97.7 ??F) 08/27/2024 12:[address] Respiratory Rate 16 08/27/2024 12:54 PM DISTILLERY MILLER HELPER Oxygen Saturation 95% 08/27/2024 12:54 PM DISTILLERY MILLER HELPER Inhaled Oxygen Concentration - - Weight 67.3 kg (148 lb 6.4 oz) 08/27/2024 12:54 PM DISTILLERY MILLER HELPER Height - - Body Mass Index 24.7 11/29/2023 8:23 AM CDT documented in this encounter Progress Notes * Daryl Glasgow NP - 08/27/2024 1:00 PM CST MEDICAL ONCOLOGY OUTPATIENT ROV NOTE Maguichicho Forbesphuong : 1945 DATE OF VISIT: 08/27/24 Oncology History Overview Note Melanoma 07/03 - patient palpated mass in L axilla while shaving 07/03 - FNA c/w melanoma Genomics: LISANDRA/pMMR TMB:18.9 PD-L1 CPS/TPS: 50%/40% BRAF-wt NRAS p.Q61R PET/CT DATE: 07/31/2023 IMPRESSION: 1. Hypermetabolic left axillary mass in keeping with biopsy-proven melanoma. Adjacent mildly avid 1 cm left subpectoral lymph node suspicious for additional site of metastatic disease. 2. No discrete primary cutaneous lesion identified. 3. Mildly hypermetabolic 1.2 cm right middle lobe pulmonary nodule. Differential diagnosis includes primary lung malignancy, less likely metastatic melanoma given mild degree of uptake and less likely inflammation given focal and well-defined nature of the lesion. Recommend tissue sampling vs short-term interval follow-up if definitive diagnosis is required for treatment planning. bMRI DATE: 07/31/2023 IMPRESSION: No intracranial metastases. 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 Recommend further evaluation with CTA/MRA. Degenerative changes of the bilateral temporomandibular joints, with acute enhancing synovitis on the right. 10/11/23 - Left axillary lymph node dissection, levels 1-3. Dr Davis Lymph node, left axillary, dissection/regional resection: Necrotic tumor involving one of twelve lymph nodes Note: Viable tumor is not identified. Result Date: 12/25/2023 PET/CT FDG Skull to Thigh 1. Interval changes of left axillary lymph node dissection without evidence of residual hypermetabolic disease. 2. Stable indeterminate mildly hypermetabolic right middle lobe lung nodule. Recommend follow up imaging with CT chest. 3. New diffuse mildly avid left breast skin thickening, likely related to lymphedema in the setting of recent axillary lymph node dissection. 03/18/24 - PET - 1. Stable postoperative changes of left axillary lymph node dissection with likely lymphedema within the left breast. No evidence of disease recurrence. 2. Stable indeterminate 1.2 cm right middle lobe pulmonary nodule dating back to 07/31/2023. PET/CT FDG Skull to Thigh Result Date: 06/10/2024 1. No PET/CT evidence of residual/recurrent or metastatic disease. 2. Stable mildly FDG avid right middle lobe pulmonary nodule. Attention on imaging follow up. Dictated by: Claritza Su MD The radiology attending physician has personally reviewed this study, and had reviewed and/or edited thiswritten report and agrees with it. Electronically signed by: Gavin Patel M.D. Melanoma of axilla (HCC) 07/18/2023 Initial Diagnosis Melanoma of axilla (HCC) Active Treatment & Therapy Plans for Magui Baker Amanda Ann does not have any active plans of the following types: Oncology Chemotherapy Treatment, Oncology Treatment (2), Oncology Treatment (3), Oncology Supportive Care, Specialty Infusion Treatment, Blood Products, BMT, Hematology IMMUNOTHERAPY Pembrolizumab (08/08/23 -08/13/2024) Subjective Interval History Magui Baker presents for ongoing management of melanoma. Overall doing well. No new or concerning lesions or masses. No F/C/NS/N/V/D. She has completed 1 year adjuvant therapy. Transitioning to observation. Had restaging PET imaging done yesterday showing no evidence of recurrent or new disease. Reviewed this with her today in detail. No Known Allergies Outpatient Encounter Medications as of 08/27/2024: clopidogreL (PLAVIX) 75 mg tablet, Take 1 tablet (75 mg total) by mouth every morning, Disp: , Rfl: enalapril (VASOTEC) 10 mg tablet, Take 1 tablet (10 mg total) by mouth every morning, Disp: , Rfl: ergocalciferol, vitamin D2, 10 mcg (400 unit) tablet, Take 1 tablet by mouth every morning, Disp: ,Rfl: esomeprazole DR (NexIUM) 40 mg capsule, Take 1 capsule (40 mg total) by mouth as needed, Disp: , Rfl: furosemide (LASIX) 20 mg tablet, Take 1 tablet (20 mg total) by mouth as needed (Patient not taking: Reported on 03/19/2024), Disp: , Rfl: hydroCHLOROthiazide (HYDRODIURIL) 25 mg tablet, Take 1 tablet (25 mg total) by mouth every morning,Disp: , Rfl: meloxicam (MOBIC) 7.5 mg tablet, Take 1 tablet (7.5 mg total) by mouth as needed for pain (Patient not taking: Reported on 03/19/2024), Disp: , Rfl: metoprolol XL (TOPROL-XL) 50 mg extended release tablet, Take 1 tablet (50 mg total) by mouth everymorning, Disp: , Rfl: multivitamin tablet, Take 1 tablet by mouth every morning, Disp: , Rfl: mupirocin (BACTROBAN) 2 % ointment, Apply topically as needed, Disp: , Rfl: nystatin cream, Apply topically 2 (two) times a day, Disp: , Rfl: omega-3 fatty acids 500 mg capsule, Take 1 tablet by mouth every morning, Disp: , Rfl: potassium chloride ER 10 mEq CR tablet, Take 1 tablet/capsule (10 mEq total) by mouth every morning, Disp: , Rfl: rosuvastatin (CRESTOR) 10 mg tablet, Take 0.5 tablets (5 mg total) by mouth every morning 0.5 tablet, Disp: , Rfl: triamcinolone (KENALOG) 0.1 % cream, APPLY TO AFFECTED AREA TWICE A DAY, Disp: 80 g, Rfl: 3 vibegron (Gemtesa) 75 mg tablet, Take 1 each by mouth daily, Disp: , Rfl: zinc gluconate 50 mg tablet, Take 1 tablet (50 mg total) by mouth every morning, Disp: , Rfl: [DISCONTINUED] prochlorperazine (Compazine) 10 mg tablet, Take 1 tablet (10 mg total) by mouth every 6 (six) hours as needed for nausea or vomiting (Patient not taking: Reported on 03/19/2024), Disp: 30 tablet, Rfl: 3 [] fludeoxyglucose F-18 (FDG) injection 16.31 millicurie, , Disp: , Rfl: Review of Systems: Review of systems per HPI and otherwise all other systems are negative Performance Status: ECOG 0 Objective Vitals: Most Recent : No data recorded Physical Exam: General Appearance: Well-appearing, in no apparent distress. ECO HEENT: Normocephalic, atraumatic. Pupils equal, round and reactive to light. Sclera anicteric. Oropharynx clear. Chest: CTA B CV: RRR Extremities: No edema, clubbing or cyanosis. LNs: L axillary scar - well healed, no redness, drain removed, no mass Skin: Numerous AKs throughout the upper and lower extremities. Scattered pink papules on arms B. Neuro: Non-focal. Lab/Radiology/Diagnostic Review: No results found for this or any previous visit (from the past 72 hours). Radiology: PET/CT FDG Skull to Thigh Result Date: 08/26/2024 1. No PET/CT evidence of residual/recurrent or metastatic disease. 2. New minimally hypermetabolic groundglass density pulmonary nodules in bilateral upper lobes are favored to be infectious/inflammatory. Recommend attention on follow-up imaging. 3. Minimally hypermetabolic right middle lobe pulmonary nodule, unchanged dating back to 07/31/2023. Attention on imaging follow-up. Dictated by: Cheo Fierro MD The radiology attending physician has personally reviewed this study, and had reviewed and/or edited this written report and agrees with it. Electronically signed by: Gavin Patel M.D. PET/CT FDG Skull to Thigh Narrative: EXAMINATION: TUMOR FDG-PET/CT IMAGING DATE OF STUDY: 08/26/2024 SCANNER: [facility] RADIOPHARMACEUTICAL: 16.31 mCi F-18 Fluorodeoxyglucose (FDG) i.v. Injection site: Right hand. HISTORY: 79-year-old woman with melanoma diagnosed by FNA of left axillary mass in June 2023. A left axillary lymph node dissection in September 2023 revealed necrotic nonviable tumor. She is on neoadjuvant pembrolizumab treatment, 18 cycles completed this month. The study is requested for treatment monitoring during therapy. Subsequent treatment strategy. TECHNIQUE: The patient's fasting blood glucose level, measured by glucometer before injection of FDG, was 92 mg/dL. After intravenous administration of FDG, noncontrast CT images were obtained for attenuation correction and for fusion with emission PET images to allow for anatomical localization of PET findings. Emission PET images were then obtained. The study was interpreted on the [employer] workstation. The mean liver SUV (reported for ethanol quality leader purposes) is 2.7. The total scanned area was skull vertex to knees. Images of the body were obtained starting 63 minutes after injection of tracer. All reported SUVs are maximum SUVs, unless otherwise specified. COMPARISON: FDG-PET/CT dated 03/18/2024 DESCRIPTORS OF LESION FDG AVIDITY: Minimal: <= blood pool Mild: > blood pool and <= liver Moderate: > liver and <= 2x SUVmax liver Moderate to marked: >2x SUVmax liver and <= 3x SUVmax liver Marked: > 3x SUVmax liver FINDINGS: There are new groundglass density pulmonary nodules in the bilateral upper lobes with minimal FDG uptake (axial images 104 and 114). There is a right middle lobe pulmonary nodule measuring approximately 13 mm minimal FDG uptake, unchanged dating back to 07/31/2023. There is a mildly hypermetabolic skin thickening involving the left breast, likely related to lymphedema. FDG uptake along the anterior C1 arch, right temporomandibular joint, right shoulder joint, bilateral knees (left greater than right) joints and lower lumbar spine facet joints and interspinous region (L3-4 and L4-5), likely degenerative. Additional CT findings: Bilateral maxillary sinus mucous retention cyst. Aortic, coronary, iliac calcifications. Cholecystectomy. Right hilar calcified lymph nodes and calcified splenic nodules suggest remote granulomatous disease. Right renal cyst. Multiple thyroid nodules. Multilevel degenerative spine disease. Post colonic surgery and hysterectomy changes. Impression: 1. No PET/CT evidence of residual/recurrent or metastatic disease. 2. New minimally hypermetabolic groundglass density pulmonary nodules in bilateral upper lobes are favored to be infectious/inflammatory. Recommend attention on follow-up imaging. 3. Minimally hypermetabolic right middle lobe pulmonary nodule, unchanged dating back to 07/31/2023. Attention on imaging follow-up. Dictated by: Cheo Fierro MD The radiology attending physician has personally reviewed this study, and had reviewed and/or edited this written report and agrees with it. Electronically signed by: Gavin Patle M.D. Assessment/Plan Magui Baker is 79 y.o. woman with metastatic melanoma presenting for ongoing recommendations for therapy. Tempus with NRAS mutation. Pembrolizumab (08/08/23 -08/13/2024) 1 year adjuvant Melanoma - biopsy confirmed L axillary met, s/p neoadj pembro and resection - 3 cycles neoadjuvant pembro -> L axillary LND with no viable tumor remaining (great news). Per SWOG study, continue to complete 1 year of adj pembro (from time of first dose prior to surgery). Monitor small lung nodule on subsequent scans (BELLE on prior). Completed adjuvant pembro - Pembrolizumab (08/08/23 -08/13/2024) Now with restaging and surveillance. MRI brain - no evidence of melanoma mets, repeat annual. TSH - Now with normal T4 and TSH - may be trend from hyper to hypo thyroid. Will continue to monitor and replete if needed. ROV 08/27/24 Restaging again in November 2024 Last dose of Pembro today and then transition to observation All questions answered. Reiterated that I remain available for additional questions that may arise going forward. [place] YAPP-C Nurse Practitioner Medical Oncology Dairy Manufacturing Technologist completed by using [employer] Fluency Direct speaking software, therefore, transcriptionvariances may occur. 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) Expected: 11/19/2024, Expires: 08/16/2025 CBC with auto differential Lab Routine Malignant melanoma of unknown origin (HCC) 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) Expected: 11/19/2024, Expires: 08/16/2025 Lactate dehydrogenase (LD) Lab Routine Malignant melanoma of unknown origin (HCC) 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) Expected: 11/19/2024, Expires: 08/16/2025 Thyroid Function [place] Lab Routine Malignant melanoma of unknown origin (HCC) 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) Expected: 11/19/2024, Expires: 08/16/2025 documented as of this encounter Visit Diagnoses Diagnosis Malignant melanoma of unknown origin (HCC)- Primary 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) documented in this encounter Orders Appointment Requests Count Last Ordered Date Fi rst Ordered Date ONCBCN CLINIC APPOINTMENT REQUEST 2 024 ONCBCN LAB APPOINTMENT 1 08/27/2024 documented in this encounter Care Teams Clinical Nurse Leader Relationship Specialty Start Date End Date Becky Conroy NP [address] [place] [address] PCP - General Nurse Practitioner 07/06/23 Jose Chairez MD PhD [address] [facility] [address] [place] [address] Medical Oncologist/Irradiated Fuel Handler Medical Oncology 08/14/23 Evelin Lofton MD [address] [place] [address] Referring Physician Cardiovascular Disease 08/14/23 documented as of this encounter
--- OUTSIDE RECORDS SUMMARY | 2024-09-17 04:20 | XMS_ITS | Encounter Summary ---
Author Organization [facility] Address [address] [place] [address] Phone Care Team Providers Care Truck Bracer Name Role Phone Becky Conroy NP Primary Care Provider [phone] Jose Chairez MD PhD Unavailable [phone] Evelin Lofton MD Unavailable [phone] Encounter Details Date Type Department Care Team (Late st Contact Info) Description 08/21/2024 Orders Only [facility] Oncology [address] [place] [address] Jose Chairez MD PhD [address] [facility] [address] [place], [place] [id number] Social History Tobacco Use Types Packs/Day Years [...] on file 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 Gender Identity Not on file Sexual Orientation Not on file documented as of this encounter Plan of Treatment Not on file documented as of this encounter Visit Diagnoses Not on filedocumented in this encounter Discontinued Medications Medication Sig Discontinue Reason Start Date End Da te prochlorperazine (Compazine) 10 mg tabletIndications:Maame wynn melanoma of unknown origin (HCC) Take 1 tablet (10 mg total) by mouth every 6 (six) hours as needed for nausea or vomiting 08/07/2023 08/21/2024 documented as of this encounter Care Teams Truck Bracer Relationship Specialty Start Date End Date Becky Conroy NP [address] [place] [address] PCP - General Nurse Practitioner 07/06/23 Jose Chairez MD PhD [address] [facility] [address] [place], [place] [id number] Medical Oncologist/Wig Stylist Medical Oncology 08/14/23 Evelin Lofton MD [address] [place] [address] Referring Physician Cardiovascular Disease 08/14/23 documented as of this encounter
--- OUTSIDE RECORDS SUMMARY | 2024-09-17 04:20 | XMS_ITS | Encounter Summary ---
Author Organization [facility] Address [address] [place] [address] Care Team Providers Care Research Consultant Name Role Phone Becky Conroy NP Primary Care Provider [phone] Jose Chairez MD PhD Unavailable [phone] Evelin Lofton MD Unavailable [phone] Reason for Visit * Reason Comments Immunotherapy * Episode Based Medications (Routine) - Closed Specialty Diagnoses / Procedures Referred By Contac t Referred To Contact Oncology Diagnoses Malignant melanoma of unknown origin (HCC) Jose Chairez MD PhD [address] [facility] [address] [place] [address] Phone: tel: fax: [address] [address] Phone: tel: fax: Referral ID Status Reason Start Date Expiration Date Visits Re quested Visits Authorized [id number] Closed 05/27/2024 09/04/2024 30 Encounter Details Date Type Department Care Team (Late st Contact Info) Description 06/11/2024 10:30 AM CDT Infusion [address] [id number] Malignant melanoma of unknown origin (HCC) (Primary [...] on file 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 Magui Baker is a 79 y.o. female who presents for treatment cycle 15, day 1 of Keytruda. Pre-treatment Nursing Assessment Nursing Assessment LOC: Awake Fatigue: None Any falls since your last visit?: No Orientation: Oriented x4 Behavior: Calm Speech: Clear Language: No aphasia Vision: At baseline Peripheral Neuropathy: No Oral Mucosa Grade: Normal (0) Shortness of Breath?: No Appetite: Good Have You Recently Lost Weight Without Trying?: No Have you been eating poorly because of a decreased appetite?: No Malnutrition Screening Tool (MST) Score: 0 Nausea/Vomiting: No Diarrhea: No Constipation: No Skin Condition/Temp: Warm, Dry Swelling: No Encounter Vitals BP: 155/70 (06/11/2024 8:58 AM) Pulse: 65 (06/11/2024 8:58 AM) Resp: 16 (06/11/2024 8:58 AM) Temp: 36.3 ??C (97.3 ??F) (06/11/2024 8:58 AM) Temp src: Oral (06/11/2024 8:58 AM) SpO2: 94 % (06/11/2024 8:58 AM) Weight: 66.8 kg (147 lb 4.8 oz) (06/11/2024 8:58 AM) Pain Score: 0 - No pain Treatment Patient: met treatment parameters Pre blood return: Mariposa Baker tolerated treatment well. Patient was frequently observed and monitored throughout the administration of their treatment. Post blood return: Brisk IV access post infusion: Other: IV DC Discharge Plan Discharge instructions given to patient. Future appointments given and reviewed with treatment plan. Discharge Mode: Ambulatory Accompanied by: Family Discharged To: Home documented in this encounter Plan of Treatment [...] mL/hr, Administer over 30 Minutes, Once, On Mon06/11/24 at 1015, For 1 dose, Use 0.2-5 micron filterIndications:Malignant melanoma of unknown origin (HCC) New Bag 06/11/2024 10:10 AM CDT 200 mg 236 mL/hr documented in this encounter Orders Medications Ordered That Stalin ht Not Have Been Administered Count Last Ordered Date First Ordered Date pembrolizumab (KEYTRUDA) 200 mg in sodium chloride 0.9% 100 mL 1 06/11/2024 Nursing Count Last Ordered Date First Orde red Date ONCBCN PROVIDER COMMUNICATION 2 1 4 ONCBCN TREATMENT PARAMETERS 3 1 06/11/2024 Appointment Requests Count Last Ordered Date Fi rst Ordered Date ONCBCN RETURN CHEMO 1.5HRS 1 06/11/2024 documented in this encounter Care Teams Research Consultant Relationship Specialty Start Date End Date Becky Conroy NP [address] [place] [address] PCP - General Nurse Practitioner 07/06/23 Jose Chairez MD PhD [address] [facility] [address] [place] [address] Medical Oncologist/[employer] Director Medical Oncology 08/14/23 Evelin Lofton MD [address] [place] [address] Referring Physician Cardiovascular Disease 08/14/23 documented as of this encounter
--- OUTSIDE RECORDS SUMMARY | 2024-09-17 04:20 | XMS_ITS | Encounter Summary ---
Author Organization [facility] Healthcare Address [address] [place] [address] Care Team Providers Care Edi Architect Name Role Phone Becky Conroy NP Primary Care Provider [phone] [phone] Jose Chairez MD PhD Unavailable +1- [phone] Evelin Lofton MD Unavailable Reason for Visit * Episode Based Medications (Routine) - Closed Specialty Diagnoses / Procedures Referred By Contmarques t Referred To Contact Oncology Diagnoses Malignant melanoma of unknown origin (HCC) Jose Chairez MD PhD [address] [facility] [address] [place] [address] Phone: tel: fax: [address] [address] Phone: tel: fax: Referral ID Status Reason Start Date Expiration Date Visits Re quested Visits Authorized [id number] Closed 05/27/2024 09/04/2024 30 Encounter Details Date Type Department Care Team (Late st Contact Info) Description 07/02/2024 10:00 AM CDT Infusion [address] [address] Malignant melanoma of unknown origin (HCC) (Primary Dx) Social History Tobacco Use Types Packs/Day Years Used Date Smoking Tobacco: Former Cigarettes 0.5 9 1 - 1988 Passive Smoke Exposure: Never Smokeless [...] on file 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 female who presents for treatment cycle 16, day 1 of Keytruda. Pre-treatment Nursing Assessment Nursing Assessment LOC: Alert, Awake Fatigue: None Any falls since your last visit?: No Orientation: Oriented x4 Speech: Clear Language: No aphasia Vision: At baseline Peripheral Neuropathy: No Oral Mucosa Grade: Normal (0) Shortness of Breath?: No Appetite: Good Nausea/Vomiting: No Diarrhea: No Constipation: No Swelling: No Encounter Vitals BP: 145/69 (07/02/2024 9:17 AM) Pulse: 70 (07/02/2024 9:17 AM) Resp: 16 (07/02/2024 9:17 AM) Temp: 36.3 ??C (97.4 ??F) (07/02/2024 9:17 AM) SpO2: 95 % (07/02/2024 9:17 AM) Weight: 66.8 kg (147 lb 3.2 oz) (07/02/2024 9:17 AM) Pain Score: 0 - No pain Treatment Patient: met treatment parameters Pre blood return: [place] Magui Baker tolerated treatment well. Patient was frequently observed and monitored throughout the administration of their treatment. Post blood return: Brisk IV access post infusion: NS Patient Education Treatment Education: Information/teaching given to patient including fall prevention, adverse reaction, symptom management, process and procedure related to today's visit, and when to notify MD Response: Verbalizes understanding Discharge Plan Discharge instructions given to patient. Future appointments given and reviewed with treatment plan. Discharge Mode: Ambulatory Accompanied by: Friend Discharged To: Home documented in this encounter [...] mL/hr, Administer over 30 Minutes, Once, On Mon07/02/24 at 1030, For 1 dose, Use 0.2-5 micron filterIndications:Malignant melanoma of unknown origin (HCC) New Bag 07/02/2024 10:26 AM CDT 200 mg 236 mL/hr documented in this encounter Orders Medications Ordered That Stalin ht Not Have Been Administered Count Last Ordered Date First Ordered Date pembrolizumab (KEYTRUDA) 200 mg in sodium chloride 0.9% 100 mL 1 07/02/2024 Nursing Count Last Ordered Date First Orde red Date ONCBCN PROVIDER COMMUNICATION 2 1 ONCBCN TREATMENT PARAMETERS 3 1 07/02/2024 Appointment Requests Count Last Ordered Date Fi rst Ordered Date ONCBCN RETURN CHEMO 1.5HRS 1 07/02/2024 documented in this encounter Care Teams Edi Architect Relationship Specialty Start Date End Date Becky Conroy NP [address] [place] [address] PCP - General Nurse Practitioner 07/06/23 Jose Chairez MD PhD [address] [facility] [address] [place] [address] Medical Oncologist/Reimbursement Counselor Medical Oncology 08/14/23 Evelin Lofton MD [address] [place] [address] Referring Physician Cardiovascular Disease 08/14/23 documented as of this encounter
--- OUTSIDE RECORDS SUMMARY | 2024-09-17 04:20 | XMS_ITS | Encounter Summary ---
Author Organization [facility] Address [address] [place] [address] Phone Care Team Providers Care Restaurant Manager Name Role Phone Becky Conroy NP Primary Care Provider [phone] [phone] Jose Chairez MD PhD Unavailable +1- [phone] Evelin Lofton MD Unavailable Reason for Visit * Episode Based Medications (Routine) - Closed Specialty Diagnoses / Procedures Referred By Contac t Referred To Contact Oncology Diagnoses Malignant melanoma of unknown origin (HCC) Jose Chairez MD PhD [address] [facility] [address] [place] [address] Phone: tel: fax: [facility] [address] [address] Phone: tel: fax: Referral ID Status Reason Start Date Expiration Date Visits Re quested Visits Authorized [id number] Closed 05/27/2024 09/04/2024 1 30 Encounter Details Date Type Department Care Team (Late st Contact Info) Description 07/02/2024 9:00 AM CDT Office Visit [facility] Oncology [address] [place] [id number] Jose Chairez MD PhD [address] [facility] [address] [place] [address] Malignant melanoma of unknown origin [...] on file Legal Sex Female 1:54 AM HOUSING PROJECT MANAGER Gender Identity Not on file Sexual Orientation Not on file documented as of this encounter Last Filed Vital Signs Vital Sign Reading Time Taken Comments Blood Pressure 145/69 07/02/2024 9:17 AM CDT Pulse 70 07/02/2024 9:17 AM CDT Temperature 36.3 ??C (97.4 ??F) 07/02/2024 9:17 AM CD T Respiratory Rate 16 07/02/2024 9:17 AM CDT Oxygen Saturation 95% 07/02/2024 9:17 AM CDT Inhaled Oxygen Concentration - - Weight 66.8 kg (147 lb 3.2 oz) 07/02/2024 9:17 A M CDT Height - - Body Mass Index 24.5 11/29/2023 8:23 AM CDT documented in this encounter Progress Notes * Daryl Glasgow GAS TESTER - 07/02/2024 9:00 AM CDT Oncology Progress Note Cancer Staging No matching staging information was found for the patient. Oncology History Overview Note Melanoma 07/03 - [...] Diagnosis Melanoma of axilla (HCC) Active Treatment Plans for Magui Baker Oncology Chemotherapy Treatment: Pembrolizumab 21 Day Cycles Current day: Day 1, Cycle 16 (Planned for 07/02/2024) Following planned day: Day 1, Cycle 17 (Planned for 07/23/2024) Imaging: PET/CT FDG Skull to Thigh Result Date: [...] EXAMINATION: TUMOR FDG-PET/CT IMAGING DATE OF STUDY: 06/10/2024 SCANNER: [facility] RADIOPHARMACEUTICAL: 16.5 mCi F-18 Fluorodeoxyglucose (FDG) i.v. Injection site: Right antecubital HISTORY: 79-year-old woman with left axillary biopsy-proven melanoma in June 2023. A left axillary lymph node dissection in September 2023 revealed necrotic nonviable tumor. She is undergoing neoadjuvant pembrolizumab treatment (14 cycles completed) The study is requested for treatment monitoring during therapy. Subsequent treatment strategy. TECHNIQUE: The patient's fasting blood glucose level, measured by glucometer before injection of FDG, was 81 mg/dL. After intravenous administration of FDG, noncontrast CT images were obtained for attenuation correction and for fusion with emission PET images to allow for anatomical localization of PET findings. Emission PET images were then obtained. The study was interpreted on the [employer] workstation. The mean liver SUV (reported for customer quality specialist purposes) is 2.9. The total scanned area was skull vertex to proximal thighs. Images of the body were obtained starting 50 minutes after injection of tracer. All reported SUVs are maximum SUVs, unless otherwise specified. COMPARISON: FDG-PET/CT dated 03/18/2024 DESCRIPTORS OF LESION FDG AVIDITY: Minimal: <= blood pool Mild: > blood pool and <= liver Moderate: > liver and <= 2x SUVmax liver Moderate to marked: >2x SUVmax liver and <= 3x SUVmax liver Marked: > 3x SUVmax liver FINDINGS: There is further interval mild reduction in the FDG uptake in the skin thickening involving the left breast, likely related to lymphedema. There is no significant interval change in the minimal FDG avidity of the right middle lobe pulmonary nodule measuring approximately 13 mm. Mild FDG avidity involving the right temporomandibular joint, bilateral shoulders, bilateral knees and multiple levels of spine, likely degenerative. Additional CT findings: Left maxillary retention cyst. Aortic, coronary, iliac calcifications. Cholecystectomy. Right hilar calcified lymph nodes suggest remote granulomatous disease. Post colonic surgery and hysterectomy changes. [...] it. Electronically signed by: Gavin Patel M.D. Subjective Interval History Magui Baker presents for ongoing management of melanoma. Pembrolizumab every 3 weeks. Overall doing well. Continued improvement of L arm - better range of motion. Some mild swelling in L breast but otherwise minimal lympedema. Some pink rash on arms that responds to topical steroid. No new or concerning lesions or masses. PET on 06/10/2024 showing No PET/CT evidence of residual/recurrent or metastatic disease. Stable indeterminate 1.2 cm right middle lobe pulmonary nodule this date back to 07/31/2023. Plan to proceed today with treatment as scheduled. No Known Allergies Outpatient Encounter Medications as of 07/02/2024: clopidogreL (PLAVIX) 75 mg tablet, Take 1 [...] taking: Reported on 03/19/2024), Disp: , Rfl: gabapentin (NEURONTIN) 100 mg capsule, Take 2 capsules (200 mg total) by mouth 3 (three) times a day for 14 days, Disp: 84 capsule, Rfl: 0 hydroCHLOROthiazide (HYDRODIURIL) 25 mg tablet, Take 1 tablet (25 mg total) by mouth every morning,Disp: , Rfl: hydrOXYzine (ATARAX) 10 mg tablet, TAKE 1 TABLET (10 MG TOTAL) BY MOUTH NIGHTLY NEEDED FOR ITCHING, Disp: 90 tablet, Rfl: 0 meloxicam (MOBIC) 7.5 mg tablet, Take 1 [...] by mouth every morning, Disp: , Rfl: prochlorperazine (Compazine) 10 mg tablet, Take 1 tablet (10 mg total) by mouth every 6 (six) hoursas needed for nausea or vomiting (Patient not taking: Reported on 03/19/2024), Disp: 30 tablet, Rfl: 3 rosuvastatin (CRESTOR) 10 mg tablet, Take 0.5 [...] by mouth every morning, Disp: , Rfl: Review of Systems: Review [...] scar - well healed, no redness, drain removed Skin: Numerous AKs throughout the upper and lower extremities. Scattered pink papules on arms B. Neuro: Non-focal. Lab/Radiology/Diagnostic Review: Recent Results (from the past 72 hour(s)) CBC with auto differential Collection Time: 07/02/24 7:59 AM Result Value Ref Range WBC 9.9 3.8 - 9.9 K/cumm Hgb 13.7 11.9 - 15.5 g/dL Hct 40.9 35.6 - 45.5 % Plt 233 150 - 400 K/cumm MPV 9.1 9.1 - 12.3 fL RBC 4.73 3.90 - 5.20 M/cumm MCV 86.5 81.3 - 96.4 fL MCH 29.0 27.1 - 33.3 pg MCHC 33.5 32.3 - 35.7 g/dL RDW CV 12.9 11.1 - 14.9 % RDW SD 40.8 35.7 - 48.1 fL NRBC abs 0.00 0.00 - 0.01 K/cumm Differential, auto Collection Time: 07/02/24 7:59 AM Result Value Ref Range Neutrophil abs 6.3 1.5 - 6.5 K/cumm Imm gran abs 0.0 0.0 - 0.1 K/cumm Lymphocyte abs 2.4 0.8 - 3.3 K/cumm Monocyte abs 0.8 0.2 - 0.8 K/cumm Eosinophil abs 0.3 0.0 - 0.5 K/cumm Basophil abs 0.1 0.0 - 0.1 K/cumm Neutrophil pct 63.6 % Imm gran pct 0.3 % Lymphocyte pct 24.5 % Monocyte pct 7.8 % Eosinophil pct 3.0 % Basophil pct 0.8 % Radiology: PET/CT FDG Skull to Thigh Result Date: 03/18/2024 1. Stable postoperative changes of left axillary lymph node dissection with likely lymphedema within the left breast. No evidence of disease recurrence. 2. Stable indeterminate 1.2 cm right middle lobe pulmonary nodule dating back to 07/31/2023. Dictated by: Donnie Schulz MD The radiology attendingphysician has personally reviewed this study, and had reviewed and/or edited this written report and agrees with it. Electronically signed by: Hernando Cordova M.D. PET/CT FDG Skull to Thigh Narrative: EXAMINATION: TUMOR FDG-PET/CT IMAGING DATE OF STUDY: 06/10/2024 SCANNER: [facility] RADIOPHARMACEUTICAL: 16.5 mCi F-18 Fluorodeoxyglucose (FDG) i.v. Injection site: Right antecubital HISTORY: 79-year-old woman with left axillary biopsy-proven melanoma in June 2023. A left axillary lymph node dissection in September 2023 revealed necrotic nonviable tumor. She is undergoing neoadjuvant pembrolizumab treatment (14 cycles completed) The study is requested for treatment monitoring during therapy. Subsequent treatment strategy. TECHNIQUE: The patient's fasting blood glucose level, measured by glucometer before injection of FDG, was 81 mg/dL. After intravenous administration of FDG, noncontrast CT images were obtained for attenuation correction and for fusion with emission PET images to allow for anatomical localization of PET findings. Emission PET images were then obtained. The study was interpreted on the [employer] workstation. The mean liver SUV (reported for customer quality specialist purposes) is 2.9. The total scanned area was skull vertex to proximal thighs. Images of the body were obtained starting 50 minutes after injection of tracer. All reported SUVs are maximum SUVs, unless otherwise specified. COMPARISON: FDG-PET/CT dated 03/18/2024 DESCRIPTORS OF LESION FDG AVIDITY: Minimal: <= blood pool Mild: > blood pool and <= liver Moderate: > liver and <= 2x SUVmax liver Moderate to marked: >2x SUVmax liver and <= 3x SUVmax liver Marked: > 3x SUVmax liver FINDINGS: There is further interval mild reduction in the FDG uptake in the skin thickening involving the left breast, likely related to lymphedema. There is no significant interval change in the minimal FDG avidity of the right middle lobe pulmonary nodule measuring approximately 13 mm. Mild FDG avidity involving the right temporomandibular joint, bilateral shoulders, bilateral knees and multiple levels of spine, likely degenerative. Additional CT findings: Left maxillary retention cyst. Aortic, coronary, iliac calcifications. Cholecystectomy. Right hilar calcified lymph nodes suggest remote granulomatous disease. Post colonic surgery and hysterectomy changes. [...] it. Electronically signed by: Gavin Patel M.D. Assessment/Plan Magui Baker is 79 y.o. woman with metastatic melanoma presenting for ongoing recommendations for therapy. Tempus with NRAS mutation. Melanoma - biopsy confirmed L axillary met, s/p neoadj pembro and resection - 3 cycles neoadjuvant pembro -> L axillary LND with no viable tumor remaining (great news). Per SWOG study, continue to complete 1 year of adj pembro (from time of first dose prior to surgery). (08/08/23 - Ongoing) Monitor small lung nodule on subsequent scans (BELLE on prior). Continue adjuvant pembro Restaging-had PET imaging on 03/18/2024 showing no evidence of metastatic disease or recurrence. Will continue to treat with immunotherapy every 3 weeks plan to re-stage again in MRI brain - no evidence of melanoma mets, repeat annual. TSH - previously normal T4, but low TSH. Now with normal TSH - may be trend from hyper to hypo thyroid. Will continue to monitor and replete if needed. RTC 3 weeks for next cycle IO. Restaging again 08/26/24 (PET). All questions answered. Reiterated that I remain available for additional questions that may arise going forward. Israel Glasgow ART INSTRUCTOR-C Nurse Practitioner Medical Oncology Appeals Referee completed by using M*Modal [employer] Direct speaking software, therefore, transcriptionvariances may occur. documented in this encounter Plan of Treatment Not on file documented as of this encounter Results * (ABNORMAL) Comprehensive metabolic panel (07/23/2024 7:49 AM HOUSING PROJECT MANAGER) Sodium 142 135 - 145 mmol/L Comment:Testing performed by : [facility], [address] [place] [id number] Potassium, pl 3.6 3.3 - 4.9 mmol/L [facility] Chloride 104 97 - 110 mmol/L [facility] CO2 28 22 - 32 mmol/L [facility] Anion gap 10 2 - 15 mmol/L [facility] BUN 14 6 - 25 mg/dL [facility] Creatinine 0.58(L) 0.60 - 1.10 mg/dL [facility] Glucose 97 70 - 199 mg/dL [facility] Comment: Interpretive Data Fasting glucose >/= [...] 2022. Calcium 9.7 8.5 - 10.3 mg/dL [facility] Bilirubin, total 0.5 0.1 - 1.2 mg/dL [facility] Protein, pl 7.5 6.5 - 8.5 g/dL [facility] Albumin 4.4 3.5 - 5.0 g/dL [facility] Alk phos 54 40 - 130 Units/L [facility] ALT 18 7 - 45 Units/L [facility] AST 22 10 - 45 Units/L [facility] Blood 07/23/2024 7:49 AM HOUSING PROJECT MANAGER 07/23/2024 7:49 AM HOUSING PROJECT MANAGER us Daryl Glasgow NP LAB BLOOD ORDERABLES [place] valadez Result [facility] Department [place] [address] * CBC with auto differential (07/23/2024 7:49 AM HOUSING PROJECT MANAGER) WBC 7.4 3.8 - 9.9 K/cumm Comment:Testing performed by : [facility], [address] [place] [id number] Hgb 13.7 11.9 - 15.5 g/dL [facility] Comment:Testing performed by : [address] [address] Hct 40.4 35.6 - 45.5 % [facility] Comment:Testing performed by : [address] [address] Plt 220 150 - 400 K/cumm [facility] Comment:Testing performed by : [address] [address] MPV 9.3 9.1 - 12.3 fL [facility] RBC 4.67 3.90 - 5.20 M/cumm [facility] MCV 86.5 81.3 - 96.4 fL [facility] MCH 29.3 27.1 - 33.3 pg [facility] MCHC 33.9 32.3 - 35.7 g/dL [facility] RDW CV 13.2 11.1 - 14.9 % [facility] RDW SD 41.2 35.7 - 48.1 fL [facility] NRBC abs 0.00 0.00 - 0.01 K/cumm [facility] Blood 07/23/2024 7:49 AM HOUSING PROJECT MANAGER 07/23/2024 7:49 AM HOUSING PROJECT MANAGER Daryl Glasgow NP LAB BLOOD ORDERABLES Valencia l Result [facility] Department [place] [address] * Lactate dehydrogenase (LD) (07/23/2024 7:49 AM HOUSING PROJECT MANAGER) Lactate dehydrogenase (LDH) 213 100 - 250 Units/L Comment:Testing performed by : [address] [address] Blood 07/23/2024 7:49 AM HOUSING PROJECT MANAGER 07/23/2024 7:49 AM HOUSING PROJECT MANAGER Daryl Glasgow GAS TESTER LAB BLOOD ORDERABLES Valencia l Result Performing Organization Address City/[facility]/ZIP Co de Phone Number [facility] Department [place] [address] * Thyroid Function [place] (07/23/2024 7:49 AM HOUSING PROJECT MANAGER) TSH 2.26 0.30 - 4.20 mcIUnit/mL Blood 07/23/2024 7:49 AM HOUSING PROJECT MANAGER 07/23/2024 8:48 AM HOUSING PROJECT MANAGER Daryl Glasgow GAS TESTER LAB BLOOD ORDERABLES Valencia l Result Performing Organization Address [facility] Co de Phone Number [facility] [place] [address] documented in this encounter Visit Diagnoses Diagnosis Malignant melanoma of unknown origin (HCC)- Primary documented in this encounter Orders Appointment Requests Count Last Ordered Date Fi rst Ordered Date ONCBCN CLINIC APPOINTMENT REQUEST 2 024 07/02/2024 ONCBCN LAB APPOINTMENT 1 07/23/2024 ONCBCN RETURN CHEMO 1.5HRS 1 07/23/2024 documented in this encounter Care Teams Restaurant Manager Relationship Specialty Start Date End Date Becky Conroy NP [address] [place] [address] PCP - General Nurse Practitioner 07/06/23 Jose Chairez MD PhD [address] [facility] [address] [place] [address] Medical Oncologist/Elephant Tamer Medical Oncology 08/14/23 Evelin Lofton MD [address] [place] [address] Referring Physician Cardiovascular Disease 08/14/23 documented as of this encounter
--- OUTSIDE RECORDS SUMMARY | 2024-09-17 04:20 | XMS_ITS | Encounter Summary ---
Author Organization [facility] Address [address] [place] [address] Phone Care Team Providers Care Seed Cleaner Operator Name Role Phone Becky Conroy NP Primary Care Provider [phone] Jose Chairez MD PhD Unavailable [phone]- [phone] Evelin Lofton MD Unavailable [phone] Reason for Visit * Episode Based Medications (Routine) - Closed Specialty Diagnoses / Procedures Referred By Contac t Referred To Contact Oncology Diagnoses Malignant melanoma of unknown origin (HCC) Jose Chairez MD PhD [address] [facility] [address] [place] [address] Phone: tel: fax: [facility] [address] [address] Phone: tel: fax: Referral ID Status Reason Start Date Expiration Date Visits Re quested Visits Authorized [id number] Closed 05/27/2024 09/04/2024 1 30 Encounter Details Date Type Department Care Team (Late st Contact Info) Description 08/13/2024 11:00 AM SORTER OPERATOR Office Visit [facility] Oncology [address] [place] [phone] Jose Chairez MD PhD [address] [facility] [address] [place] [address] Malignant melanoma of unknown origin [...] on file Legal Sex Female 1:54 AM SORTER OPERATOR Gender Identity Not on file Sexual Orientation Not on file documented as of this encounter Last Filed Vital Signs Vital Sign Reading Time Taken Comments Blood Pressure 143/83 08/13/2024 9:58 AM SORTER OPERATOR Pulse 79 08/13/2024 9:58 AM SORTER OPERATOR Temperature 36.9 ??C (98.4 ??F) 08/13/2024 9:58 AM CS T Respiratory Rate 16 08/13/2024 9:58 AM SORTER OPERATOR Oxygen Saturation 96% 08/13/2024 9:58 AM SORTER OPERATOR Inhaled Oxygen Concentration - - Weight 67.6 kg (149 lb 1.6 oz) 08/13/2024 9:58 A M SORTER OPERATOR Height - - Body Mass Index 24.81 11/29/2023 8:23 AM CDT documented in this encounter Progress Notes * Ernie Glasgow NP - 08/13/2024 11:00 AM CST MEDICAL ONCOLOGY OUTPATIENT ROV NOTE Magui Sophia Baker : 1945 DATE OF VISIT: 08/13/24 Oncology History Overview Note Melanoma 07/03 - [...] Day Cycles Current day: Day 1, Cycle 18 (Planned for 08/13/2024) IMMUNOTHERAPY Pembrolizumab (08/08/23 -08/13/2024) Subjective Interval History Magui Baker presents for ongoing management of melanoma. Overall doing well. No new or concerning lesions or masses. No F/C/NS/N/V/D. Last dose of immunotherapy today. She has completed 1 year adjuvant therapy. Plan to transition to observation. No Known Allergies Outpatient Encounter Medications as of 08/13/2024: clopidogreL (PLAVIX) 75 mg tablet, Take 1 [...] by mouth as needed, Disp: , Rfl: hydroCHLOROthiazide (HYDRODIURIL) 25 mg tablet, Take 1 tablet (25 mg total) by mouth every morning,Disp: , Rfl: metoprolol XL (TOPROL-XL) 50 mg [...] by mouth every morning, Disp: , Rfl: furosemide (LASIX) 20 mg tablet, Take 1 tablet (20 mg total) by mouth as needed (Patient not taking: Reported on 03/19/2024), Disp: , Rfl: meloxicam (MOBIC) 7.5 mg tablet, Take 1 tablet (7.5 mg total) by mouth as needed for pain (Patient not taking: Reported on 03/19/2024), Disp: , Rfl: prochlorperazine (Compazine) 10 mg tablet, Take 1 tablet (10 mg total) by mouth every 6 (six) hoursas needed for nausea or vomiting (Patient not taking: Reported on 03/19/2024), Disp: 30 tablet, Rfl: 3 [DISCONTINUED] gabapentin (NEURONTIN) 100 mg capsule, Take 2 capsules (200 mg total) by mouth 3 (three) times a day for 14 days, Disp: 84 capsule, Rfl: 0 [DISCONTINUED] hydrOXYzine (ATARAX) 10 mg tablet, TAKE 1 TABLET (10 MG TOTAL) BY MOUTH NIGHTLY NEEDED FOR ITCHING, Disp: 90 tablet, Rfl: 0 Review of Systems: Review of systems per HPI and otherwise all other systems are negative Performance Status: ECOG 0 Objective Vitals: Most Recent : BP: 143/83 Temp: 36.9 ??C (98.4 ??F) Temp src: Oral Pulse: 79 Resp: 16 SpO2: 96 % Weight: 67.6 kg (149 lb 1.6 oz) Physical Exam: General Appearance: Well-appearing, in no [...] Review: Recent Results (from the past 72 hours) Comprehensive metabolic panel Collection Time: 08/13/24 9:43 AM Result Value Ref Range Sodium 142 135 - 145 mmol/L Potassium, pl 3.5 3.3 - 4.9 mmol/L Chloride 103 97 - 110 mmol/L CO2 30 22 - 32 mmol/L Anion gap 9 2 - 15 mmol/L BUN 16 6 - 25 mg/dL Creatinine 0.65 0.60 - 1.10 mg/dL Glucose 94 70 - 199 mg/dL Calcium 10.1 8.5 - 10.3 mg/dL Bilirubin, total 0.5 0.1 - 1.2 mg/dL Protein, pl 7.8 6.5 - 8.5 g/dL Albumin 4.6 3.5 - 5.0 g/dL Alk phos 54 40 - 130 Units/L ALT 16 7 - 45 Units/L AST 22 10 - 45 Units/L CBC with auto differential Collection Time: 08/13/24 9:43 AM Result Value Ref Range WBC 9.0 3.8 - 9.9 K/cumm Hgb 13.9 11.9 - 15.5 g/dL Hct 40.5 35.6 - 45.5 % Plt 232 150 - 400 K/cumm MPV 9.4 9.1 - 12.3 fL RBC 4.75 3.90 - 5.20 M/cumm MCV 85.3 81.3 - 96.4 fL MCH 29.3 27.1 - 33.3 pg MCHC 34.3 32.3 - 35.7 g/dL RDW CV 12.8 11.1 - 14.9 % RDW SD 40.2 35.7 - 48.1 fL NRBC abs 0.00 0.00 - 0.01 K/cumm Lactate dehydrogenase (LD) Collection Time: 08/13/24 9:43 AM Result Value Ref Range Lactate dehydrogenase (LDH) 186 100 - 250 Units/L Differential, auto Collection Time: 08/13/24 9:43 AM Result Value Ref Range Neutrophil abs 5.3 1.5 - 6.5 K/cumm Imm gran abs 0.0 0.0 - 0.1 K/cumm Lymphocyte abs 2.6 0.8 - 3.3 K/cumm Monocyte abs 0.9 (H) 0.2 - 0.8 K/cumm Eosinophil abs 0.2 0.0 - 0.5 K/cumm Basophil abs 0.1 0.0 - 0.1 K/cumm Neutrophil pct 58.4 % Imm gran pct 0.3 % Lymphocyte pct 28.5 % Monocyte pct 9.9 % Eosinophil pct 2.1 % Basophil pct 0.8 % eGFR Collection Time: 08/13/24 9:43 AM Result Value Ref Range eGFR 88 >=60 mL/min/1.73 m2 Radiology: No new scans. Assessment/Plan Magui Baker is 79 y.o. woman [...] scans (BELLE on prior). Continue adjuvant pembro - last cycle today, then restaging and surveillance. MRI brain - no evidence of melanoma mets, repeat annual. TSH - Now with normal T4 and TSH - may be trend from hyper to hypo thyroid. Will continue to monitor and replete if needed. ROV 08/27/24 Restaging PET 08/26/24 Last dose of Pembro today and then transition to observation All questions answered. Reiterated that I remain available for additional questions that may arise going forward. Israel Glasgow ADVERTISING SALES ASSISTANT-C Nurse Practitioner Medical Oncology Senior Contract Specialist completed by using M*Modal Fluency Direct speaking software, therefore, transcriptionvariances may occur. ER OPERATOR documented in this encounter Miscellaneous Notes * Addendum Note - Ernie Glasgow NP - 08/13/2024 11:00 AM CSTAddended by: ERNIE GLASGOW on: 08/13/2024 11:14 AM Modules accepted: Orders ER OPERATOR documented in this encounter Plan of Treatment Not on file documented as of this encounter Visit Diagnoses Diagnosis Malignant melanoma of unknown origin (HCC) documented in this encounter Orders Appointment Requests Count Last Ordered Date Fi rst Ordered Date ONCBCN CLINIC APPOINTMENT REQUEST 1 024 documented in this encounter Care Teams Seed Cleaner Operator Relationship Specialty Start Date End Date Becky Conroy FINISH MILL OPERATOR [address] [place] [address] PCP - General Nurse Practitioner 07/06/23 Jose Chairez MD PhD [address] [facility] [address] [place], [place] [id number] Medical Oncologist/Regulatory Affairs Intern Medical Oncology 08/14/23 Evelin Lofton MD [address] [place] [address] Referring Physician Cardiovascular Disease 08/14/23 documented as of this encounter
--- OUTSIDE RECORDS SUMMARY | 2024-09-17 04:20 | XMS_ITS | Encounter Summary ---
Author Organization [facility] Address [address] [place] [address] Care Team Providers Care Sound Cutter Name Role Phone Becky Conroy NP Primary Care Provider [phone] Jose Chairez MD PhD Unavailable [phone] Evelin Lofton MD Unavailable [phone] Reason for Referral * MRI/CAT/PET Scan (Routine) - Closed Specialty Diagnoses / Procedures Referred By Contac t Referred To Contact Radiology Diagnoses Malignant melanoma of unknown origin (HCC) Procedures PET/CT FDG Skull to Thigh Jose Chairez MD PhD [address] [address] Phone: tel: fax: [facility] Referral ID Status Reason Start Date Expiration Date Visits Re quested Visits Authorized [id number] Closed 03/19/2024 04/18/2025 1 2 Reason for Visit * MRI/CAT/PET Scan (Routine) - Closed Specialty Diagnoses / Procedures Referred By [facility] Referred To Contact Radiology Diagnoses Malignant melanoma of unknown origin (HCC) Procedures PET/CT FDG Skull to Thigh Jose Chairez MD PhD [address] [address] Phone: tel: fax: [facility] Referral ID Status Reason Start Date Expiration Date Visits Re quested Visits Authorized [id number] Closed 03/19/2024 04/18/2025 1 2 Encounter Details Date Type Department Care Team (Latest Contact Info) Description 06/10/2024 9:58 AM CDT - 06/10/2024 11:59 PM CDT Hospital Encounter [facility] [address] [place] [address] Malignant melanoma of unknown origin (HCC) Discharge Disposition: Discharge to home or self care Social History Tobacco Use Types Packs/Day Years [...] on file 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 Gender Identity Not on file Sexual Orientation Not on file documented as of this encounter Medications at Time of Discharge clopidogreL (PLAVIX) 75 mg tabletIndications: Myocardial Reinfarction Prevention,Thrombo sis Prevention after PCI,1 cardiac stent Take 1 tablet (75 mg total) by mouth every morning 06/26/2023 enalapril (VASOTEC) 10 mg tabletIndications: hypertension Take 1 tablet (10 mg total) by mouth every morning ergocalciferol, vitamin D2, 10 mcg (400 unit) tabletIndications: Prevention of Vitamin D Deficiency Take 1 tablet by mouth every morning 10/09/[address] (NexIUM) 40 mg capsuleIndications :acid reflux Take 1 capsule (40 mg total) by mouth as needed 05/08/2008 furosemide (LASIX) 20 mg tabletIndications: Edema Take 1 tablet (20 mg total) by mouth as needed hydroCHLOROthiazid e (HYDRODIURIL) 25 mg tabletIndications: Edema,hypertension Take 1 tablet (25 mg total) by mouth every morning meloxicam (MOBIC) 7.5 mg tablet Take 1 tablet (7.5 mg total) by mouth as needed for pain metoprolol XL (TOPROL-XL) 50 mg extended release tabletIndications: hypertension Take 1 tablet (50 mg total) by mouth every morning multivitamin tabletIndications: Vitamin Deficiency Prevention Take 1 tablet by mouth every morning mupirocin (BACTROBAN) 2 % ointmentIndication s:Minor Bacterial Skin Infections Apply topically as needed 08/15/2023 nystatin cream Apply topically 2 (two) times a day 11/27/2023 omega-3 fatty acids 500 mg capsuleIndications :supplement Take 1 tablet by mouth every morning 12/24/2014 potassium chloride ER 10 mEq CR tabletIndications: hypokalemia prevention Take 1 tablet/capsule (10 mEq total) by mouth every morning rosuvastatin (CRESTOR) 10 mg tabletIndications: hyperlipidemia Take 0.5 tablets (5 mg total) by mouth every morning 0.5 tablet vibegron (Gemtesa) 75 mg tablet Take 1 each by mouth daily zinc gluconate 50 mg tabletIndications: supplement Take 1 tablet (50 mg total) by mouth every morning gabapentin (NEURONTIN) 100 mg capsule Take 2 capsules (200 mg total) by mouth 3 (three) times a day for 14 days 84 capsule 10/31/2023 4 hydrOXYzine (ATARAX) 10 mg tablet TAKE 1 TABLET (10 MG TOTAL) BY MOUTH NIGHTLY NEEDED FOR ITCHING 90 tablet 03/29/2024 4 prochlorperazine (Compazine) 10 mg tabletIndications: Malignant melanoma of unknown origin (HCC) Take 1 tablet (10 mg total) by mouth every 6 (six) hours as needed for nausea or vomiting 30 tablet 3 08/07/2023 4 triamcinolone (KENALOG) 0.1 % cream APPLY TO AFFECTED AREA TWICE A DAY 80 g 3 05/06/2024 4 documented as of this encounter Discharge Disposition Disposition Code Departure Means Destination Discharge to home or self care documented in this encounter Plan of Treatment Not on file documented as of this encounter Procedures Procedure Name Priority Date/Time Associated Diagnosis Comments PET/CT FDG SKULL TO THIGH Schedule Routine, Read Routine (OP Routine) 06/10/2024 11:23 AM CDT Malignant melanoma of unknown origin (HCC) documented in this encounter Results * PET/CT FDG Skull to Thigh (06/10/2024 11:23 AM CDT) Anatomical Region Laterality Modality N/A Positron Emissio n Tomography (PET) 06/10/2024 11:5 5 AM CDT Impressions 06/10/2024 12:33 PM CDT 1. ??No PET/CT evidence of residual/recurrent or metastatic disease. 2. ??Stable mildly FDG avid right middle lobe pulmonary nodule. Attention on imaging follow up. Dictated by: Claritza Su MD The radiology attending physician has personally reviewed this study, and had reviewed and/or edited this written report and agrees with it. Electronically signed by: Gavin Patel M.D. Narrative 06/10/2024 12:33 PM CDT EXAMINATION: TUMOR FDG-PET/CT IMAGING DATE OF STUDY: ??06/10/2024 SCANNER: [facility] RADIOPHARMACEUTICAL: 16.5 mCi F-18 Fluorodeoxyglucose (FDG) i.v. Injection site: Right antecubital HISTORY: 79-year-old woman with left axillary biopsy-proven melanoma in June 2023. ??A left axillary lymph node dissection in September 2023 revealed necrotic nonviable tumor. She is undergoing neoadjuvant pembrolizumab treatment (14 cycles completed) ?? The study is requested for treatment monitoring during therapy. Subsequent treatment strategy. TECHNIQUE: ?? The patient's fasting blood glucose level, measured by glucometer before injection of FDG, was 81 mg/dL. ?? After intravenous administration of FDG, noncontrast CT images were obtained for attenuation correction and for fusion with emission PET images to allow for anatomical localization of PET findings. ??Emission PET images were then obtained. ??The study was interpreted on the [employer] workstation. ??The mean liver SUV (reported for quality control auditor purposes) is 2.9. The total scanned area was skull vertex to proximal thighs. Images of the body were obtained starting 50 minutes after injection of tracer. All reported SUVs are maximum SUVs, unless otherwise specified. COMPARISON: FDG-PET/CT dated 03/18/2024 DESCRIPTORS OF LESION FDG AVIDITY: Minimal: ? <= blood pool ? Mild: ?> blood pool and <= liver ? Moderate: ?? > liver and <= 2x SUVmax liver ? Moderate to marked: ?? >2x SUVmax liver and <= 3x SUVmax liver ? Marked: ? > 3x SUVmax liver ? FINDINGS: There is further interval mild reduction [...] Additional CT findings: Left maxillary retention cyst. ??Aortic, coronary, iliac calcifications. ??Cholecystectomy. ??Right hilar calcified lymph nodes suggest remote granulomatous disease. ??Post colonic surgery and hysterectomy changes. Procedure Note Gavin Patel MD - 06/10/2024 EXAMINATION: TUMOR FDG-PET/CT IMAGING DATE OF STUDY: 06/10/2024 SCANNER: [facility] RADIOPHARMACEUTICAL: 16.5 mCi F-18 Fluorodeoxyglucose (FDG) i.v. [...] obtained. The study was interpreted on the [employer] workstation. The mean liver SUV (reported for quality control auditor purposes) is 2.9. The total scanned area [...] disease. Post colonic surgery and hysterectomy changes. IMPRESSION: 1. No PET/CT evidence of residual/recurrent or metastatic disease. 2. Stable mildly FDG avid right middle lobe pulmonary nodule. Attention on imaging follow up. Dictated by: Claritza Su MD The radiology attending physician has personally reviewed this study, and had reviewed and/or edited this written report and agrees with it. Electronically signed by: Gavin Patel M.D. Jose Chairez MD PhD IMG PET PROCEDURES F inal Result documented in this encounter Visit Diagnoses Diagnosis Malignant melanoma of unknown origin (HCC) documented in this encounter Administered Medications Inactive Administered Medications - up to 3 most recent administrations Medication Order MAR Action Action Date Dose Rate Site fludeoxyglucose F-18 (FDG) injection 16.51 millicurie 16.51 millicurie, intravenous, Once in imaging, radiopharmaceutical, Starting on 06/10/24 at 1011, For 1 dose Given 06/10/2024 10:11 AM CDT 16.51 millicuries Right Hand documented in this encounter Orders Medications Ordered That Stalin ht Not Have Been Administered Count Last Ordered Date First Ordered Date fludeoxyglucose F-18 (FDG) i njection 16.51 millicurie 1 06/10/2024 documented in this encounter Care Teams Sound Cutter Relationship Specialty Start Date End Date Becky Conroy NP [address] [place] [address] PCP - General Nurse Practitioner 07/06/23 Jose Chairez MD PhD [address] [facility] [address] [place], [place] [id number] Medical Oncologist/Insurance Claim Auditor Medical Oncology 08/14/23 Evelin Lofton MD [address] [place], [place] [address] Referring Physician Cardiovascular Disease 08/14/23 documented as of this encounter
--- OUTSIDE RECORDS SUMMARY | 2024-09-17 04:20 | XMS_ITS | Encounter Summary ---
Author Organization [facility] Healthcare Address [address] [place] [address] Care Team Providers Care Skip Tender Name Role Phone Becky Conroy NP Primary Care Provider [phone] Jose Chairez MD PhD Unavailable +1- [phone] Evelin Lofton MD Unavailable [phone] Reason for Visit * Episode Based Medications (Routine) - Closed Specialty Diagnoses / Procedures Referred By Contmarques t Referred To Contact Oncology Diagnoses Malignant melanoma of unknown origin (HCC) Jose Chairez MD PhD [address] [facility] [address] [place] [address] Phone: tel: fax: [address] [address] Phone: tel: fax: Referral ID Status Reason Start Date Expiration Date Visits Re quested Visits Authorized [id number] Closed 05/27/2024 09/04/2024 30 Encounter Details Date Type Department Care Team (Late st Contact Info) Description 07/02/2024 8:15 AM CDT Lab [address] [address] Malignant melanoma of unknown origin [...] on file 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 Gender Identity Not on file Sexual Orientation Not on file documented as of this encounter Plan of Treatment Not on file documented as of this encounter Procedures Procedure Name Priority Date/Time Associated Diagnosis Comments EGFR STAT 07/02/2024 7:59 AM CDT Malignant melanoma of unknown origin (HCC) DIFFERENTIAL AUTO Routine 07/02/2024 7:5 9 AM CDT Malignant melanoma of unknown origin (HCC) THYROID FUNCTION CASCADE Routine 07/02/2024 7:59 AM CDT Malignant melanoma of unknown origin (HCC) CBC WITH AUTO DIFFERENTIAL Routine 07/02/2024 7:59 AM CDT Malignant melanoma of unknown origin (HCC) LACTATE DEHYDROGENASE Routine 07/02/2024 7:59 AM CDT Malignant melanoma of unknown origin (HCC) COMPREHENSIVE METABOLIC PANEL STAT 07/02/2024 7:59 AM CDT Malignant melanoma of unknown origin (HCC) documented in this encounter Results * eGFR (07/02/2024 7:59 AM CDT) eGFR 87 >=60 mL/min/1. 73 m2 Comment: Interpretive Data [...] interpretive data was last reviewed 2021. Blood 07/02/2024 7:59 AM CDT 07/02/2024 7:59 AM CDT us Daryl Glasgow NP LAB BLOOD ORDERABLES Valencia valadez Result [facility] Department [place] [address] * Differential, auto (07/02/2024 7:59 AM CDT) Pathologist [facility] Neutrophil abs 6.3 1.5 - 6.5 K/cumm Comment:Testing performed by : [facility], [address] [facility] [address] Imm gran abs 0.0 0.0 - 0.1 K/cumm [facility] Lymphocyte abs 2.4 0.8 - 3.3 K/cumm [facility] Monocyte abs 0.8 0.2 - 0.8 K/cumm [facility] Eosinophil abs 0.3 0.0 - 0.5 K/cumm [facility] Basophil abs 0.1 0.0 - 0.1 K/cumm [facility] Neutrophil pct 63.6 % [facility] Comment: Interpretive Data Percent cell count reference ranges are not reported, since discordance with absolute values may lead to misinterpretation of CBC data. Current Interpretive Data was last revised on 2017. Imm gran pct 0.3 % [facility] Comment: Interpretive Data Percent cell count reference ranges are not reported, since discordance with absolute values may lead to misinterpretation of CBC data. Current Interpretive Data was last revised on 2017. Lymphocyte pct 24.5 % [facility] Comment: Interpretive Data Percent cell count reference ranges are not reported, since discordance with absolute values may lead to misinterpretation of CBC data. Current Interpretive Data was last revised on 2017. Monocyte pct 7.8 % [facility] Comment: Interpretive Data Percent cell count reference ranges are not reported, since discordance with absolute values may lead to misinterpretation of CBC data. Current Interpretive Data was last revised on 2017. Eosinophil pct 3.0 % [facility] Comment: Interpretive Data Percent cell count reference ranges are not reported, since discordance with absolute values may lead to misinterpretation of CBC data. Current Interpretive Data was last revised on 2017. Basophil pct 0.8 % [facility] Comment: Interpretive Data Percent cell count reference ranges are not reported, since discordance with absolute values may lead to misinterpretation of CBC data. Current Interpretive Data was last revised on 2017. Blood 07/02/2024 7:59 AM CDT 07/02/2024 7:59 AM CDT us Daryl Glasgow NP LAB BLOOD ORDERABLES Valencia l Result [facility] Department [place] [address] * Thyroid Function [place] (07/02/2024 7:59 AM CDT) TSH 1.75 0.30 - 4.20 mcIUnit/mL Blood 07/02/2024 7:59 AM CDT 07/02/2024 9:14 AM CDT Daryl Glasgow NP LAB BLOOD ORDERABLES Valencia l Result Performing Organization Address City/[facility] Co de Phone Number [facility] [place] [address] * Lactate dehydrogenase (LD) (07/02/2024 7:59 AM CDT) [facility] Lactate dehydrogenase (LDH) 194 100 - 250 Units/L Comment:Testing performed by : [address] [address] Blood 07/02/2024 7:59 AM CDT 07/02/2024 7:59 AM CDT Daryl Glasgow NP LAB BLOOD ORDERABLES Valencia l Result Performing Organization Address [facility] de Phone Number [facility] [place] [address] * CBC with auto differential (07/02/2024 7:59 AM CDT) [facility] WBC 9.9 3.8 - 9.9 K/cumm Comment:Testing performed by : [address] [address] Hgb 13.7 11.9 - 15.5 g/dL [facility] Comment:Testing performed by : [address] [address] Hct 40.9 35.6 - 45.5 % [facility] Comment:Testing performed by : [address] [address] Plt 233 150 - 400 K/cumm [facility] Comment:Testing performed by : [address] [address] MPV 9.1 9.1 - 12.3 fL [facility] RBC 4.73 3.90 - 5.20 M/cumm [facility] MCV 86.5 81.3 - 96.4 fL [facility] MCH 29.0 27.1 - 33.3 pg [facility] MCHC 33.5 32.3 - 35.7 g/dL [facility] RDW CV 12.9 11.1 - 14.9 % [facility] RDW SD 40.8 35.7 - 48.1 fL [facility] NRBC abs 0.00 0.00 - 0.01 K/cumm [facility] Blood 07/02/2024 7:59 AM CDT 07/02/2024 7:59 AM CDT Daryl Glasgow NP LAB BLOOD ORDERABLES Valencia valadez Result [facility] Department [place] [address] * Comprehensive metabolic panel (07/02/2024 7:59 AM CDT) Pathologist [facility] Sodium 139 135 - 145 mmol/L Comment:Testing performed by : [facility], [address] [place] [address] Potassium, pl 3.6 3.3 - 4.9 mmol/L [facility] Chloride 103 97 - 110 mmol/L [facility] CO2 27 22 - 32 mmol/L [facility] Anion gap 9 2 - 15 mmol/L [facility] BUN 18 6 - 25 mg/dL [facility] Creatinine 0.69 0.60 - 1.10 mg/dL [facility] Glucose 90 70 - 199 mg/dL [facility] Comment: Interpretive Data Fasting glucose >/= [...] interpretive data was last revised 2022. Calcium 10.2 8.5 - 10.3 mg/dL [facility] Bilirubin, total 0.5 0.1 - 1.2 mg/dL [facility] Protein, pl 7.7 6.5 - 8.5 g/dL [facility] Albumin 4.7 3.5 - 5.0 g/dL [facility] Alk phos 50 40 - 130 Units/L [facility] ALT 17 7 - 45 Units/L [facility] AST 22 10 - 45 Units/L [facility] Blood 07/02/2024 7:59 AM CDT 07/02/2024 7:59 AM CDT us Daryl Glasgow NETWORKS COMPUTER CONSULTANT LAB BLOOD ORDERABLES Valencia valadez Result [facility] Department [place] [address] documented in this encounter Visit Diagnoses Diagnosis Malignant melanoma of unknown origin (HCC) documented in this encounter Orders Appointment Requests Count Last Ordered Date Fi rst Ordered Date ONCBCN LAB APPOINTMENT 1 07/02/2024 documented in this encounter Care Teams Skip Tender Relationship Specialty Start Date End Date Becky Conroy NP [address] [place] [address] PCP - General Nurse Practitioner 07/06/23 Jose Chairez MD PhD [address] [facility] [address] [place] [address] Medical Oncologist/Repack Room Worker Medical Oncology 08/14/23 Evelin Lofton MD [address] [place] [address] Referring Physician Cardiovascular Disease 08/14/23 documented as of this encounter
--- OUTSIDE RECORDS SUMMARY | 2024-09-17 04:20 | XMS_ITS ---
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 Past Plans Oncology Chemotherapy Treatment Plan Name Start Date Discontinue Date Treatment Medications Discontinue Reason Plan Provider Cycles Pembrolizumab 21 Day Cycles 08/08/2008/21/2024 pembrolizumab (KEYTRUDA)pembr olizumab (KEYTRUDA) IVPB in 100 mL Therapy Complete Jose Chairez MD PhD 18 of 18 cycles started Radiation Treatments * No radiation treatments are documented for this patient in [facility]. Treatments may have been administered in another system. Lifetime Dose Tracking * Chemical Lifetime Dose Automatic Entry Manual Entr y Fluoro Time 2.4 minutes 2.4 minutes 0 minutes Air kerma at the reference point (Ka,r) 3 mGy 3 mGy 0 mGy
--- OUTSIDE RECORDS SUMMARY | 2024-09-17 04:20 | XMS_ITS | Encounter Summary ---
Author Organization [facility] Healthcare Address [address] [place] [address] Care Team Providers Care Green Ware Caster Name Role Phone Becky Conroy NP Primary Care Provider [phone] Jose Chairez MD PhD Unavailable [phone]- [phone] Evelin Lofton MD Unavailable [phone] Reason for Visit * Reason Comments Immunotherapy * Episode Based Medications (Routine) - Closed Specialty Diagnoses / Procedures Referred By Contac t Referred To Contact Oncology Diagnoses Malignant melanoma of unknown origin (HCC) Jose Chairez MD PhD [address] [facility] [address] [place] [address] Phone: tel: fax: [address] [address] Phone: tel: fax: Referral ID Status Reason Start Date Expiration Date Visits Re quested Visits Authorized [id number] Closed 05/27/2024 09/04/2024 1 30 Encounter Details Date Type Department Care Team (Late st Contact Info) Description 07/23/2024 9:15 AM CONTACT LENS MANUFACTURER Infusion [address] [id number] Malignant melanoma of unknown origin (HCC) (Primary [...] on file Legal Sex 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 female who presents for treatment cycle 17, day 1 of Pembro. Reviewed chemo and side effects during visit, all questions answered at this time. Patient tolerated chemo well, no signs of reaction. Patient monitored frequently while receiving chemotherapy by thenursing staff via VS, assessment, medication administration or patient rounds. Patient acknowledgesunderstanding of self care and fall prevention at home. Pre-treatment Nursing Assessment Nursing Assessment LOC: Alert Constitutional: Fatigue Fatigue: Occassional Functional difficulty: (WDL) Any falls since your last visit?: No Orientation: Oriented x4 Behavior: Calm Speech: Clear Language: No aphasia Vision: At baseline Peripheral Neuropathy: No Oral Mucosa Grade: Normal (0) Pt states has potential to be ?: No Shortness of Breath?: No Cough: Absent Appetite: Good Nausea/Vomiting: No Abdomen: Soft Diarrhea: No Constipation: No Last BM Date: 07/23/24 Skin Condition/Temp: Warm, Dry, No swelling Rash Location: Denies Swelling: No Additional Notes: Encounter Vitals BP: 155/72 (07/23/2024 8:10 AM) Pulse: 72 (07/23/2024 8:10 AM) Resp: 16 (07/23/2024 8:10 AM) Temp: 36.6 ??C (97.8 ??F) (07/23/2024 8:10 AM) Temp src: Oral (07/23/2024 8:10 AM) SpO2: 95 % (07/23/2024 8:10 AM) Weight: 68.2 kg (150 lb 6.4 oz) (07/23/2024 8:10 AM) Pain Score: 0 - No pain Treatment Patient: met treatment parameters Pre blood return: Mariposa Baker tolerated treatment well. Patient was frequently observed and monitored throughout the administration of their treatment. Additional Notes: Post blood return: Brisk IV access post infusion: NS Patient Education Treatment Education: Information/teaching given to patient including symptom management and processand procedure related to today's visit Response: Demonstrated understanding Discharge Plan Discharge instructions given to patient. Future appointments given and reviewed with treatment plan. Discharge Mode: Ambulatory Accompanied by: Self and Family Discharged To: Home ACT LENS MANUFACTURER documented in this encounter Plan of Treatment [...] mL/hr, Administer over 30 Minutes, Once, On Mon07/23/24 at 0945, For 1 dose, Use 0.2-5 micron filterIndications:Malignant melanoma of unknown origin (HCC) New Bag 07/23/2024 9:41 AM CONTACT LENS MANUFACTURER 200 mg 236 mL/hr documented in this encounter Orders Medications Ordered That Stalin ht Not Have Been Administered Count Last Ordered Date First Ordered Date pembrolizumab (KEYTRUDA) 200 mg in sodium chloride 0.9% 100 mL 1 07/23/2024 Nursing Count Last Ordered Date First Orde red Date ONCBCN PROVIDER COMMUNICATION 2 1 ONCBCN TREATMENT PARAMETERS 3 1 07/23/2024 Appointment Requests Count Last Ordered Date Fi rst Ordered Date ONCBCN RETURN CHEMO 1.5HRS 1 07/23/2024 documented in this encounter Care Teams Green Ware Caster Relationship Specialty Start Date End Date Becky Conroy, FLATWORK FINISHER [address] [place] [address] PCP - General Nurse Practitioner 07/06/23 Jose Chairez MD PhD [address] [facility] [address] [place] [address] Medical Oncologist/Intellectual Property Counsel Medical Oncology 08/14/23 Evelin Lofton MD [address] [place] [address] Referring Physician Cardiovascular Disease 08/14/23 documented as of this encounter
--- OUTSIDE RECORDS SUMMARY | 2024-09-17 04:20 | XMS_ITS | Encounter Summary ---
Author Organization [facility] Address [address] [place] [address] Phone Care Team Providers Care Shot Peening Operator Name Role Phone Becky Conroy NP Primary Care Provider [phone] Jose Chairez MD PhD Unavailable [phone] Evelin Lofton MD Unavailable [phone] Encounter Details Date Type Department Care Team (Late st Contact Info) Description 07/10/2024 Telephone [facility] Oncology [address] [place] [id number] Asya Giles RN Social History Tobacco Use Types Packs/Day Years [...] on file Legal 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 Called her back and left a VM with our fax number for her to fax the forms so we can fill out and send in. documented in this encounter Plan of Treatment Not on file documented as of this encounter Visit Diagnoses Not on filedocumented in this encounter Care Teams Shot Peening Operator Relationship Specialty Start Date End Date Becky Conroy NP [address] [place] [address] PCP - General Nurse Practitioner 07/06/23 Jose Chairez MD PhD [address] [facility] [address] [place], [place] [id number] Medical Oncologist/Process Control Specialist Medical Oncology 08/14/23 Evelin Lofton MD [address] [place] [address] Referring Physician Cardiovascular Disease 08/14/23 documented as of this encounter
--- OUTSIDE RECORDS SUMMARY | 2024-09-17 04:20 | XMS_ITS | Encounter Summary ---
Author Organization [facility] Healthcare Address [address] [place] [address] Care Team Providers Care Mail Examiner Name Role Phone Becky Conroy NP Primary Care Provider [phone] Jose Chairez MD PhD Unavailable [phone]- [phone] Evelin Lofton MD Unavailable [phone] Reason for Referral * MRI/CAT/PET Scan (Routine) - Closed Specialty Diagnoses / Procedures Referred By Korey harkins Referred To Contact Radiology Diagnoses Malignant melanoma of unknown origin (HCC) Procedures PET/CT FDG Skull to Thigh Daryl Glasgow NP [address] [address] Phone: tel: fax: [facility] Referral ID Status Reason Start Date Expiration Date Visits Re quested Visits Authorized [id number] Closed 06/11/2024 07/11/2025 2 2 OGICAL TECHNICIAN Reason for Visit * MRI/CAT/PET Scan (Routine) - Closed Specialty Diagnoses / Procedures Referred By Contac Referred To Contact Radiology Diagnoses Malignant melanoma of unknown origin (HCC) Procedures PET/CT FDG Skull to Thigh Daryl Glasgow NP [address] [facility] [address] [address] Phone: tel: fax: [facility] Referral ID Status Reason Start Date Expiration Date Visits Re quested Visits Authorized [id number] Closed 06/11/2024 07/11/2025 2 2 Encounter Details Date Type Department Care Team (Latest Contact Info) Description 08/26/2024 9:06 AM GEOLOGICAL TECHNICIAN - 08/26/2024 11:59 PM GEOLOGICAL TECHNICIAN Hospital Encounter [facility] Advanced Medicine Imaging [address] [place] [address] Malignant melanoma of unknown origin (HCC) Discharge [...] on file Legal Sex Female 1:54 AM GEOLOGICAL TECHNICIAN Gender Identity Not on file Sexual Orientation [...] (50 mg total) by mouth every morning triamcinolone (KENALOG) 0.1 % cream APPLY TO [...] THIGH Schedule Routine, Read Routine (OP Routine) 08/26/2024 11:07 AM GEOLOGICAL TECHNICIAN Malignant melanoma of unknown origin (HCC) documented in this encounter Results * PET/CT FDG Skull to Thigh (08/26/2024 11:07 AM GEOLOGICAL TECHNICIAN) Anatomical Region Laterality Modality N/A Positron Emissio n Tomography (PET) 08/26/2024 1:51 PM GEOLOGICAL TECHNICIAN Impressions 08/26/2024 2:15 PM GEOLOGICAL TECHNICIAN 1. ??No PET/CT evidence of residual/recurrent or metastatic disease. 2. ??New minimally hypermetabolic groundglass density pulmonary nodules in bilateral upper lobes are favored to be infectious/inflammatory. Recommend attention on follow-up imaging. 3. ??Minimally hypermetabolic right middle lobe pulmonary nodule, unchanged dating back to 07/31/2023. Attention on imaging follow-up. Dictated by: Cheo Fierro MD The radiology attending physician has personally reviewed this study, and had reviewed and/or edited this written report and agrees with it. Electronically signed by: Gavin Patel M.D. Narrative 08/26/2024 2:15 PM GEOLOGICAL TECHNICIAN EXAMINATION: TUMOR FDG-PET/CT IMAGING DATE OF STUDY: ??08/26/2024 SCANNER: [facility] RADIOPHARMACEUTICAL: 16.31 mCi F-18 Fluorodeoxyglucose (FDG) i.v. [...] before injection of FDG, was 92 mg/dL. ?? After intravenous administration of FDG, noncontrast CT images were obtained for attenuation correction and for fusion with emission PET images to allow for anatomical localization of PET findings. ??Emission PET images were then obtained. ??The study was interpreted on the SysClass workstation. ??The mean liver SUV (reported for quality assurance analyst purposes) is 2.7. ?? The total scanned area was skull vertex [...] > 3x SUVmax liver ? FINDINGS: There are new groundglass density pulmonary [...] findings: Bilateral maxillary sinus mucous retention cyst. ??Aortic, coronary, iliac calcifications. ??Cholecystectomy. Right hilar calcified lymph nodes and calcified splenic nodules suggest remote granulomatous disease. Right renal cyst. Multiple thyroid nodules. Multilevel degenerative spine disease. Post colonic surgery and hysterectomy changes. Procedure Note Gavin Patel MD - 08/26/2024 EXAMINATION: TUMOR FDG-PET/CT IMAGING DATE OF STUDY: 08/26/2024 SCANNER: [facility] RADIOPHARMACEUTICAL: 16.31 mCi F-18 Fluorodeoxyglucose (FDG) i.v. [...] obtained. The study was interpreted on the SysClass workstation. The mean liver SUV (reported for quality assurance analyst purposes) is 2.7. The total scanned area [...] it. Electronically signed by: Gavin Patel M.D. Daryl Glasgow CULLET CRUSHER AND WASHER IMG PET PROCEDURES Final Result documented in this encounter Visit Diagnoses Diagnosis Malignant melanoma of unknown origin (HCC) documented in this encounter Administered Medications Inactive Administered Medications - up to 3 most recent administrations Medication Order MAR Action Action Date Dose Rate Site fludeoxyglucose F-18 (FDG) injection 16.31 millicurie 16.31 millicurie, intravenous, Once in imaging, radiopharmaceutical, Starting on 08/26/24 at 0935, For 1 dose Given 08/26/2024 9:35 AM GEOLOGICAL TECHNICIAN 16.31 millicuries Right Hand documented in this encounter Orders Medications Ordered That Stalin ht Not Have Been Administered Count Last Ordered Date First Ordered Date fludeoxyglucose F-18 (FDG) i njection 16.31 millicurie 1 08/26/2024 documented in this encounter Care Teams Mail Examiner Relationship Specialty Start Date End Date Becky Conroy NP [address] [place] [address] PCP - General Nurse Practitioner 07/06/23 Jose Chairez MD PhD [address] [facility] [address] [place], [place] [id number] Medical Oncologist/Vp Training Medical Oncology 08/14/23 Evelin Lofton MD [address] [place] [address] Referring Physician Cardiovascular Disease 08/14/23 documented as of this encounter
--- OUTSIDE RECORDS SUMMARY | 2024-09-17 04:20 | XMS_ITS | Encounter Summary ---
Author Organization [facility] Address [address] [place] [address] Phone Care Team Providers Care Vice President Digital Strategist Name Role Phone Becky Conroy NP Primary Care Provider [phone] Jose Chairez MD PhD Unavailable [phone] Evelin Lofton MD Unavailable [phone] Reason for Referral * MRI/CAT/PET Scan (Routine) - Closed Specialty Diagnoses / Procedures Referred By Korey harkins Referred To Contact Radiology Diagnoses Malignant melanoma of unknown origin (HCC) Procedures PET/CT FDG Skull to Thigh Daryl Glasgow NP [address] [address] Phone: tel: fax: [facility] Referral ID Status Reason Start Date Expiration Date Visits Re quested Visits Authorized [id number] Closed 06/11/2024 07/11/2025 2 2 Reason for Visit * Episode Based Medications (Routine) - Closed Specialty Diagnoses / Procedures Referred By Korey harkins Referred To Contact Oncology Diagnoses Malignant melanoma of unknown origin (HCC) Jose Chairez MD PhD [address] [facility] [address] [place] [address] Phone: tel: fax: [facility] [address] [place] [address] Phone: tel: fax: Referral ID Status Reason Start Date Expiration Date Visits Re quested Visits Authorized [id number] Closed 05/27/2024 09/04/2024 1 30 Encounter Details Date Type Department Care Team (Late st Contact Info) Description 06/11/2024 9:30 AM CDT Office Visit [facility] Oncology [address] [place] [id number] Jose Chairez MD PhD [address] [facility] [address] [place] [address] Malignant melanoma of unknown origin [...] on file Legal Sex Female 1:54 AM LEAD FRONT END DEVELOPER Gender Identity Not on file Sexual Orientation Not on file documented as of this encounter Last Filed Vital Signs Vital Sign Reading Time Taken Comments Blood Pressure 155/70 06/11/2024 8:58 AM CDT Pulse 65 06/11/2024 8:58 AM CDT Temperature 36.3 ??C (97.3 ??F) 06/11/2024 8:58 AM CD T Respiratory Rate 16 06/11/2024 8:58 AM CDT Oxygen Saturation 94% 06/11/2024 8:58 AM CDT Inhaled Oxygen Concentration - - Weight 66.8 kg (147 lb 4.8 oz) 06/11/2024 8:58 A M CDT Height - - Body Mass Index 24.51 11/29/2023 8:23 AM CDT documented in this encounter Progress Notes * Daryl Glasgow, CONFORMAL PAD FORMER - 06/11/2024 9:30 AM CDT Oncology Progress Note Cancer Staging [...] lobe pulmonary nodule dating back to 07/31/2023. 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 [...] obtained. The study was interpreted on the Better[employer] workstation. The mean liver SUV (reported for quality internship purposes) is 2.9. The total scanned area [...] Known Allergies Outpatient Encounter Medications as of 06/11/2024: clopidogreL (PLAVIX) 75 mg tablet, Take 1 [...] by mouth every morning, Disp: , Rfl: Facility-Administered Encounter Medications as of 06/11/2024: [COMPLETED] fludeoxyglucose F-18 (FDG) injection 16.51 millicurie, 16.51 millicurie, intravenous, Once in imaging, Jose Chairez MD PhD, 16.51 millicurie at 06/10/24 1011 Review of Systems: Review of systems per [...] any previous visit (from the past 72 hour(s)). Radiology: PET/CT FDG Skull to Thigh Result [...] EXAMINATION: TUMOR FDG-PET/CT IMAGING DATE OF STUDY: 03/18/2024 SCANNER: [facility] RADIOPHARMACEUTICAL: 16.7 mCi F-18 Fluorodeoxyglucose (FDG) i.v. Injection site: Right hand HISTORY: 79-year-old female with metastatic melanoma diagnosed via a left axillary mass status post left axillary lymph node dissection 10/11/2023, on pemrbolizumab. The study is requested for treatment monitoring during therapy. Subsequent treatment strategy. TECHNIQUE: The patient's fasting blood glucose level, measured by glucometer before injection of FDG, was 96 mg/dL. After intravenous administration of FDG, noncontrast CT images were obtained for attenuation correction and for fusion with emission PET images to allow for anatomical localization of PET findings. Emission PET images were then obtained. The study was interpreted on the [employer] workstation. The mean liver SUV (reported for quality internship purposes) is 2.6. The total scanned area was skull vertex to the knees. Images of the body were obtained starting 53 minutes after injection of tracer. COMPARISON: 12/25/2023, 07/31/2023 DESCRIPTORS OF LESION FDG AVIDITY: Minimal: <= blood pool Mild: > blood pool and <= liver Moderate: > liver and <= 2x SUVmax liver Moderate to marked: >2x SUVmax liver and <= 3x SUVmax liver Marked: > 3x SUVmax liver FINDINGS: Postsurgical changes of left axillary lymph node dissection with unchanged dependent skin thickening involving the left breast with mild FDG avidity likely representing congestion in the setting of lymphedema. There is an unchanged right middle lobe pulmonary nodule with mild FDG avidity measuring 1.2 cm in longest axis (image 139) with a maximum SUV of 1.9. Mild FDG avidity involving the distal esophagus with small hiatal hernia is likely related to reflux esophagitis. Additional CT findings: Left maxillary mucous retention cyst. Multinodular thyroid. Aortic and coronary atherosclerotic calcifications. Old granulomatous disease. Cholecystectomy. Hysterectomy. Changes of prior colonic surgery. Impression: 1. Stable postoperative changes of left axillary lymph node dissection with likely lymphedema within the left breast. No evidence of disease recurrence. 2. Stable indeterminate 1.2 cm right middle lobe pulmonary nodule dating back to 07/31/2023. Dictated by: Donnie Schulz MD The radiology attending physician has personally reviewed this study, and had reviewed and/or edited this written report and agrees with it. Electronically signed by: Hernando Cordova M.D. Assessment/Plan Magui Baker is 79 y.o. [...] weeks for next cycle IO. Restaging again in September All questions answered. Reiterated that I remain available for additional questions that may arise going forward. Israel CORDERO-C Nurse Practitioner Medical Oncology Teacher Education Director completed by using [email or web address] Direct speaking software, therefore, transcriptionvariances may occur. documented in this encounter Plan of Treatment Not on file documented as of this encounter Results * PET/CT FDG Skull to Thigh (08/26/2024 11:07 AM LEAD FRONT END DEVELOPER) Anatomical Region Laterality Modality N/A Positron Emissio n Tomography (PET) 08/26/2024 1:51 PM LEAD FRONT END DEVELOPER Impressions 08/26/2024 2:15 PM LEAD FRONT END DEVELOPER 1. ??No PET/CT evidence of residual/recurrent or [...] Gavin Patel M.D. Narrative 08/26/2024 2:15 PM LEAD FRONT END DEVELOPER EXAMINATION: TUMOR FDG-PET/CT IMAGING DATE OF STUDY: ??08/26/2024 SCANNER: [facility] RADIOPHARMACEUTICAL: 16.31 mCi F-18 Fluorodeoxyglucose (FDG) i.v. [...] obtained. ??The study was interpreted on the [employer] workstation. ??The mean liver SUV (reported for quality internship purposes) is 2.7. ?? The total scanned [...] FDG-PET/CT IMAGING DATE OF STUDY: 08/26/2024 SCANNER: [facility] RADIOPHARMACEUTICAL: 16.31 mCi F-18 Fluorodeoxyglucose (FDG) i.v. [...] obtained. The study was interpreted on the [employer] workstation. The mean liver SUV (reported for quality internship purposes) is 2.7. The total scanned area [...] signed by: Gavin Patel M.D. Daryl Glasgow NP IMIsra PET PROCEDURES Final Result * Comprehensive metabolic panel (07/02/2024 7:59 AM CDT) [facility] Sodium 139 135 - 145 mmol/L Comment:Testing performed by : [facility], [address] [place] [address] Potassium, pl 3.6 3.3 - 4.9 mmol/L [facility] Chloride 103 97 - 110 mmol/L [facility] CO2 27 22 - 32 mmol/L [facility] Anion gap 9 2 - 15 mmol/L [facility] BUN 18 6 - 25 mg/dL [facility] Creatinine 0.69 0.60 - 1.10 mg/dL [facility] Glucose 90 70 - 199 mg/dL [facility] Comment: Interpretive Data Fasting glucose >/= [...] 2022. Calcium 10.2 8.5 - 10.3 mg/dL [facility] Bilirubin, total 0.5 0.1 - 1.2 mg/dL [facility] Protein, pl 7.7 6.5 - 8.5 g/dL [facility] Albumin 4.7 3.5 - 5.0 g/dL [facility] Alk phos 50 40 - 130 Units/L [facility] ALT 17 7 - 45 Units/L [facility] AST 22 10 - 45 Units/L [facility] Blood 07/02/2024 7:59 AM CDT 07/02/2024 7:59 AM CDT Daryl Glasgow NP LAB BLOOD ORDERABLES Valencia valadez Result [facility] Department [place] [address] * CBC with auto differential (07/02/2024 7:59 AM CDT) [facility] WBC 9.9 3.8 - 9.9 K/cumm Comment:Testing performed by : [facility], [address] [place] [address] Hgb 13.7 11.9 - 15.5 g/dL [facility] Comment:Testing performed by : [facility], [address] [place] [address] Hct 40.9 35.6 - 45.5 % [facility] Comment:Testing performed by : [address] [address] Plt 233 150 - 400 K/cumm [facility] Comment:Testing performed by : [facility], [address] [place] [address] MPV 9.1 9.1 - 12.3 fL [facility] RBC 4.73 3.90 - 5.20 M/cumm [facility] MCV 86.5 81.3 - 96.4 fL [facility] MCH 29.0 27.1 - 33.3 pg [facility] MCHC 33.5 32.3 - 35.7 g/dL [facility] RDW CV 12.9 11.1 - 14.9 % [facility] RDW SD 40.8 35.7 - 48.1 fL [facility] NRBC abs 0.00 0.00 - 0.01 K/cumm [facility] Blood 07/02/2024 7:59 AM CDT 07/02/2024 7:59 AM CDT Daryl Glasgow NP LAB BLOOD ORDERABLES Valencia l Result Performing Organization Address City/[facility]/ZIP Co de Phone Number [facility] Department [place] [address] * Lactate dehydrogenase (LD) (07/02/2024 7:59 AM CDT) Lactate dehydrogenase (LDH) 194 100 - 250 Units/L Comment:Testing performed by : [address] [address] Blood 07/02/2024 7:59 AM CDT 07/02/2024 7:59 AM CDT Daryl Glasgow NP LAB BLOOD ORDERABLES Valencia l Result Performing Organization Address City/[facility]/ZIP Co de Phone Number [facility] [place] Department [place] [address] * Thyroid Function [place] (07/02/2024 7:59 AM CDT) TSH 1.75 0.30 - 4.20 mcIUnit/mL Blood 07/02/2024 7:59 AM CDT 07/02/2024 9:14 AM CDT us Daryl Glasgow CONFORMAL PAD FORMER LAB BLOOD ORDERABLES Valencia l Result [facility] [place] [address] documented in this encounter Visit Diagnoses Diagnosis Malignant melanoma of unknown origin (HCC)- Primary Malignant melanoma of unknown origin (HCC) documented in this encounter Orders Appointment Requests Count Last Ordered Date Fi rst Ordered Date ONCBCN CLINIC APPOINTMENT REQUEST 2 024 06/11/2024 ONCBCN LAB APPOINTMENT 1 07/02/2024 ONCBCN RETURN CHEMO 1.5HRS 1 07/02/2024 documented in this encounter Care Teams Vice President Digital Strategist Relationship Specialty Start Date End Date Becky Conroy NP [address] [place] [address] PCP - General Nurse Practitioner 07/06/23 Jose Chairez MD PhD [address] [facility] [address] [place] [address] Medical Oncologist/Dictating Machine Mechanic Medical Oncology 08/14/23 Evelin Lofton MD [address] [place] [address] Referring Physician Cardiovascular Disease 08/14/23 documented as of this encounter
--- OUTSIDE RECORDS SUMMARY | 2024-09-17 04:20 | XMS_ITS | Encounter Summary ---
Author Organization [facility] Address [address] [place] [address] Care Team Providers Care Cupola Liner Helper Name Role Phone Becky Conroy NP Primary Care Provider [phone] Jose Chairez MD PhD Unavailable [phone] Evelin Lofton MD Unavailable [phone] Reason for Visit * Reason Comments Immunotherapy * Episode Based Medications (Routine) - Closed Specialty Diagnoses / Procedures Referred By Contac t Referred To Contact Oncology Diagnoses Malignant melanoma of unknown origin (HCC) Jose Chairez MD PhD [address] [facility] [address] [place] [address] Phone: tel: fax: [address] [address] Phone: tel: fax: Referral ID Status Reason Start Date Expiration Date Visits Re quested Visits Authorized [id number] Closed 05/27/2024 09/04/2024 1 30 Encounter Details Date Type Department Care Team (Late st Contact Info) Description 08/13/2024 12:00 PM SPORTS DOCTOR Infusion [address] [address] Malignant melanoma of unknown origin (HCC) (Primary [...] on file Legal Sex Female 1:54 AM SPORTS DOCTOR Gender Identity Not on file Sexual Orientation Not on file documented as of this encounter Nursing Notes * Era Mata, RN - 08/13/2024 12:00 PM CST Oncology Nursing Note [facility] Magui Baker is a 79 y.o. female who presents for treatment cycle 18, day 1 of [id number] day cycles. Pre-treatment Nursing Assessment Nursing Assessment LOC: Alert, Awake Constitutional: Fatigue Fatigue: Occassional Any falls since your last visit?: No Orientation: Oriented x4 Behavior: Calm Speech: Clear Language: No aphasia Vision: At baseline Peripheral Neuropathy: No Oral Mucosa Grade: Normal (0) Pt states has potential to be ?: No Shortness of Breath?: No Appetite: Good What diet do you follow at home?: reg Have You Recently Lost Weight Without Trying?: No Have you been eating poorly because of a decreased appetite?: No Malnutrition Screening Tool (MST) Score: 0 Nausea/Vomiting: No Diarrhea: No Constipation: No Skin Condition/Temp: Warm, Dry, No swelling Rash Location: ongoing on bilateral arms and back - no changes and team aware Swelling: No Additional Notes: Patient saw MD today. Encounter Vitals BP: 143/83 (08/13/2024 9:58 AM) Pulse: 79 (08/13/2024 9:58 AM) Resp: 16 (08/13/2024 9:58 AM) Temp: 36.9 ??C (98.4 ??F) (08/13/2024 9:58 AM) Temp src: Oral (08/13/2024 9:58 AM) SpO2: 96 % (08/13/2024 9:58 AM) Weight: 67.6 kg (149 lb 1.6 oz) (08/13/2024 9:58 AM) Pain Score: 0 - No pain Treatment Patient: met treatment parameters Pre blood return: Brisk Magui Baker tolerated treatment well. Patient was frequently observed and monitored throughout the administration of their treatment. Additional Notes: Patient rang the dewitt after treatment today. Post blood return: Brisk IV access post infusion: NS Patient Education Treatment Education: Information/teaching given to patient including process and procedure related to today's visit Response: Verbalizes understanding Discharge Plan Discharge instructions given to patient. Future appointments given and reviewed with treatment plan. Discharge Mode: Ambulatory Accompanied by: Family Discharged To: Home TS DOCTOR documented in this encounter Plan of Treatment [...] mL/hr, Administer over 30 Minutes, Once, On Mon08/13/24 at 1200, For 1 dose, Use 0.2-5 micron filterIndications:Malignant melanoma of unknown origin (HCC) New Bag 08/13/2024 11:49 AM SPORTS DOCTOR 200 mg 236 mL/hr documented in this encounter Orders Medications Ordered That Stalin ht Not Have Been Administered Count Last Ordered Date First Ordered Date pembrolizumab (KEYTRUDA) 200 mg in sodium chloride 0.9% 100 mL 1 08/13/2024 Nursing Count Last Ordered Date First Orde red Date ONCBCN PROVIDER COMMUNICATION 2 1 4 ONCBCN TREATMENT PARAMETERS 3 1 08/13/2024 Appointment Requests Count Last Ordered Date Fi rst Ordered Date ONCBCN RETURN CHEMO 1.5HRS 1 08/13/2024 documented in this encounter Care Teams Cupola Liner Helper Relationship Specialty Start Date End Date Becky Conroy NP [address] [place] [address] PCP - General Nurse Practitioner 07/06/23 Jose Chairez MD PhD [address] [facility] [address] [place], [place] [id number] Medical Oncologist/Automatic Seamer Medical Oncology 08/14/23 Evelin Lofton MD [address] [place] [address] Referring Physician Cardiovascular Disease 08/14/23 documented as of this encounter
--- OUTSIDE RECORDS SUMMARY | 2024-09-17 04:20 | XMS_ITS | Encounter Summary ---
Author Organization [facility] Healthcare Address [address] [place] [address] Care Team Providers Care Multimedia Developer Name Role Phone Becky Conroy NP Primary Care Provider [phone] Jose Chairez MD PhD Unavailable [phone]- [phone] Evelin Lofton MD Unavailable [phone] Encounter Details Date Type Department Care Team (Late st Contact Info) Description 08/27/2024 12:30 PM WORKFORCE STAFFING ADVISOR Lab [address] [address] Malignant melanoma of unknown origin [...] on file Legal Sex Female 1:54 AM WORKFORCE STAFFING ADVISOR Gender Identity Not on file Sexual Orientation Not on file documented as of this encounter Plan of Treatment Not on file documented as of this encounter Procedures Procedure Name Priority Date/Time Associated Diagnosis Comments EGFR Routine 08/27/2024 11:39 AM WORKFORCE STAFFING ADVISOR Malignant melanoma of unknown origin (HCC) DIFFERENTIAL AUTO Routine 08/27/2024 11: 39 AM WORKFORCE STAFFING ADVISOR Malignant melanoma of unknown origin (HCC) THYROID FUNCTION CASCADE Routine 08/27/2024 11:39 AM WORKFORCE STAFFING ADVISOR Malignant melanoma of unknown origin (HCC) CBC WITH AUTO DIFFERENTIAL Routine 08/27/2024 11:39 AM WORKFORCE STAFFING ADVISOR Malignant melanoma of unknown origin (HCC) LACTATE DEHYDROGENASE Routine 08/27/2024 11:39 AM WORKFORCE STAFFING ADVISOR Malignant melanoma of unknown origin (HCC) COMPREHENSIVE METABOLIC PANEL Routine 08/27/2024 11:39 AM WORKFORCE STAFFING ADVISOR Malignant melanoma of unknown origin (HCC) documented in this encounter Results * eGFR (08/27/2024 11:39 AM WORKFORCE STAFFING ADVISOR) eGFR 88 >=60 mL/min/1. 73 m2 Comment: [...] interpretive data was last reviewed 2021. Blood 08/27/2024 11:3 9 AM WORKFORCE STAFFING ADVISOR 08/27/2024 11:52 AM WORKFORCE STAFFING ADVISOR Jose Chairez MD PhD LAB BLOOD ORDERABLES Final Result [facility] [place] [address] * Differential, auto (08/27/2024 11:39 AM WORKFORCE STAFFING ADVISOR) Neutrophil abs 4.9 1.5 - 6.5 K/cumm Comment:Testing performed by : [facility], [address] [place] [id number] Imm gran abs 0.0 0.0 - 0.1 K/cumm [facility] Lymphocyte abs 2.4 0.8 - 3.3 K/cumm [facility] Monocyte abs 0.6 0.2 - 0.8 K/cumm [facility] Eosinophil abs 0.2 0.0 - 0.5 K/cumm [facility] Basophil abs 0.1 0.0 - 0.1 K/cumm [facility] Neutrophil pct 59.9 % [facility] Comment: Interpretive Data Percent cell count reference ranges are not reported, since discordance with absolute values may lead to misinterpretation of CBC data. Current Interpretive Data was last revised on 2017. Imm gran pct 0.4 % [facility] Comment: Interpretive Data Percent cell count reference ranges are not reported, since discordance with absolute values may lead to misinterpretation of CBC data. Current Interpretive Data was last revised on 2017. Lymphocyte pct 29.3 % [facility] Comment: Interpretive Data Percent cell count reference ranges are not reported, since discordance with absolute values may lead to misinterpretation of CBC data. Current Interpretive Data was last revised on 2017. Monocyte pct 7.6 % [facility] Comment: Interpretive Data Percent cell count reference ranges are not reported, since discordance with absolute values may lead to misinterpretation of CBC data. Current Interpretive Data was last revised on 2017. Eosinophil pct 2.1 % [facility] Comment: Interpretive Data Percent cell count reference ranges are not reported, since discordance with absolute values may lead to misinterpretation of CBC data. Current Interpretive Data was last revised on 2017. Basophil pct 0.7 % [facility] Comment: Interpretive Data Percent cell count reference ranges are not reported, since discordance with absolute values may lead to misinterpretation of CBC data. Current Interpretive Data was last revised on 2017. Blood 08/27/2024 11:3 9 AM WORKFORCE STAFFING ADVISOR 08/27/2024 11:39 AM WORKFORCE STAFFING ADVISOR us Jose Chairez MD PhD LAB BLOOD ORDERABLES Final Result [facility] Department [place] [address] * CBC with auto differential (08/27/2024 11:39 AM WORKFORCE STAFFING ADVISOR) WBC 8.1 3.8 - 9.9 K/cumm Comment:Testing performed by : [address] [address] Hgb 13.2 11.9 - 15.5 g/dL [facility] Comment:Testing performed by : [address] [address] Hct 38.9 35.6 - 45.5 % [facility] Comment:Testing performed by : [address] [address] Plt 247 150 - 400 K/cumm [facility] Comment:Testing performed by : [address] [address] MPV 9.2 9.1 - 12.3 fL [facility] RBC 4.57 3.90 - 5.20 M/cumm [facility] MCV 85.1 81.3 - 96.4 fL [facility] MCH 28.9 27.1 - 33.3 pg [facility] MCHC 33.9 32.3 - 35.7 g/dL [facility] RDW CV 12.9 11.1 - 14.9 % [facility] RDW SD 39.9 35.7 - 48.1 fL [facility] NRBC abs 0.00 0.00 - 0.01 K/cumm [facility] Blood 08/27/2024 11:3 9 AM WORKFORCE STAFFING ADVISOR 08/27/2024 11:39 AM WORKFORCE STAFFING ADVISOR us Jose Chairez MD PhD LAB BLOOD ORDERABLES Final Result [facility] Department [place] [address] * Comprehensive metabolic panel (08/27/2024 11:39 AM WORKFORCE STAFFING ADVISOR) Sodium 140 135 - 145 mmol/L Comment:Testing performed by : [facility], [address] [place] [address] Potassium, pl 3.3 3.3 - 4.9 mmol/L [facility] Chloride 104 97 - 110 mmol/L [facility] CO2 25 22 - 32 mmol/L [facility] Anion gap 11 2 - 15 mmol/L [facility] BUN 14 6 - 25 mg/dL [facility] Creatinine 0.66 0.60 - 1.10 mg/dL [facility] Glucose 102 70 - 199 mg/dL [facility] Comment: Interpretive Data Fasting glucose >/= 126 [...] 2022. Calcium 10.1 8.5 - 10.3 mg/dL [facility] Bilirubin, total 0.4 0.1 - 1.2 mg/dL [facility] Protein, pl 7.3 6.5 - 8.5 g/dL [facility] Albumin 4.4 3.5 - 5.0 g/dL [facility] Alk phos 49 40 - 130 Units/L [facility] ALT 17 7 - 45 Units/L [facility] AST 23 10 - 45 Units/L [facility] Blood 08/27/2024 11:3 9 AM WORKFORCE STAFFING ADVISOR 08/27/2024 11:39 AM WORKFORCE STAFFING ADVISOR us Jose Chairez MD PhD LAB BLOOD ORDERABLES Final Result [facility] [place] [address] * Thyroid Function [place] (08/27/2024 11:39 AM WORKFORCE STAFFING ADVISOR) Pathologist [facility] TSH 1.84 0.30 - 4.20 mcIUnit/mL Blood 08/27/2024 11:3 9 AM WORKFORCE STAFFING ADVISOR 08/27/2024 1:17 PM WORKFORCE STAFFING ADVISOR us Jsoe Chairez MD PhD LAB BLOOD ORDERABLES Final Result Performing Organization Address [facility] [place] [address] * Lactate dehydrogenase (LD) (08/27/2024 11:39 AM WORKFORCE STAFFING ADVISOR) Lactate dehydrogenase (LDH) 222 100 - 250 Units/L Comment:Testing performed by : [facility], [address] [place] [address] Blood 08/27/2024 11:3 9 AM WORKFORCE STAFFING ADVISOR 08/27/2024 11:39 AM WORKFORCE STAFFING ADVISOR Jose Chairez MD PhD LAB BLOOD ORDERABLES Final Result Performing Organization Address City/[facility]/ZIP Co de Phone Number [facility] [place] [address] documented in this encounter Visit Diagnoses Diagnosis Malignant melanoma of unknown origin (HCC) documented in this encounter Orders Appointment Requests Count Last Ordered Date Fi rst Ordered Date ONCBCN LAB APPOINTMENT 1 08/27/2024 documented in this encounter Care Teams Multimedia Developer Relationship Specialty Start Date End Date Becky Conroy INSURANCE HEALTHCARE REPRESENTATIVE [address] [place] [address] PCP - General Nurse Practitioner 07/06/23 Jose Chairez MD PhD [address] [facility] [address] [place], [place] [id number] Medical Oncologist/Combat Engineer Medical Oncology 08/14/23 Evelin Lofton MD [address] [place] [address] Referring Physician Cardiovascular Disease 08/14/23 documented as of this encounter
--- OUTSIDE RECORDS SUMMARY | 2024-09-17 04:20 | XMS_ITS | Encounter Summary ---
Author Organization [facility] Address [address] [place] [address] Phone Care Team Providers Care Authorizer Name Role Phone Becky Conroy NP Primary Care Provider [phone] Jose Chairez MD PhD Unavailable [phone]- [phone] Evelin Lofton MD Unavailable [phone] Reason for Visit * Episode Based Medications (Routine) - Closed Specialty Diagnoses / Procedures Referred By Contac t Referred To Contact Oncology Diagnoses Malignant melanoma of unknown origin (HCC) Jose Chairez MD PhD [address] [facility] [address] [place] [address] Phone: tel: fax: [facility] [address] [address] Phone: tel: fax: Referral ID Status Reason Start Date Expiration Date Visits Re quested Visits Authorized [id number] Closed 05/27/2024 09/04/2024 1 30 Encounter Details Date Type Department Care Team (Late st Contact Info) Description 07/23/2024 8:15 AM DBAS Office Visit [facility] Oncology [address] [place] [phone] Jose Chairez MD PhD [address] [facility] [address] [place] [address] Malignant melanoma of unknown origin [...] on file Legal Sex Female 1:54 AM DBAS Gender Identity Not on file Sexual Orientation Not on file documented as of this encounter Last Filed Vital Signs Vital Sign Reading Time Taken Comments Blood Pressure 155/72 07/23/2024 8:10 AM DBAS Pulse 72 07/23/2024 8:10 AM DBAS Temperature 36.6 ??C (97.8 ??F) 07/23/2024 8:10 AM CS T Respiratory Rate 16 07/23/2024 8:10 AM DBAS Oxygen Saturation 95% 07/23/2024 8:10 AM DBAS Inhaled Oxygen Concentration - - Weight 68.2 kg (150 lb 6.4 oz) 07/23/2024 8:10 A M DBAS Height - - Body Mass Index 25.03 11/29/2023 8:23 AM CDT documented in this encounter Progress Notes * Jose Chairez MD PhD - 07/23/2024 8:15 AM CST Oncology Progress Note Cancer Staging No matching [...] Day Cycles Current day: Day 1, Cycle 17 (Started on 07/23/2024; Originally planned for 07/23/2024) Following planned day: Day 1, Cycle 18 (Planned for 08/13/2024) Subjective Interval History Magui Baker presents for ongoing management of melanoma. Overall doing well. No new or concerning lesions or masses. No F/C/NS/N/V/D. Presents alone. No Known Allergies Outpatient Encounter Medications as of 07/23/2024: clopidogreL (PLAVIX) 75 mg tablet, Take 1 [...] 14 days, Disp: 84 capsule, Rfl: 0 hydrOXYzine (ATARAX) 10 mg tablet, TAKE 1 [...] on 03/19/2024), Disp: 30 tablet, Rfl: 3 No facility-administered encounter medications on file as of 07/23/2024. Review of Systems: Review of systems per HPI and otherwise all other systems are negative Performance Status: ECOG 0 Objective Vitals: Most Recent : BP: 155/72 Temp: 36.6 ??C (97.8 ??F) Temp src: Oral Pulse: 72 Resp: 16 SpO2: 95 % Weight: 68.2 kg (150 lb 6.4 oz) Physical Exam: General Appearance: Well-appearing, in [...] 72 hours) Comprehensive metabolic panel Collection Time: 07/23/24 7:49 AM Result Value Ref Range Sodium 142 135 - 145 mmol/L Potassium, pl 3.6 3.3 - 4.9 mmol/L Chloride 104 97 - 110 mmol/L CO2 28 22 - 32 mmol/L Anion gap 10 2 - 15 mmol/L BUN 14 6 - 25 mg/dL Creatinine 0.58 (L) 0.60 - 1.10 mg/dL Glucose 97 70 - 199 mg/dL Calcium 9.7 8.5 - 10.3 mg/dL Bilirubin, total 0.5 0.1 - 1.2 mg/dL Protein, pl 7.5 6.5 - 8.5 g/dL Albumin 4.4 3.5 - 5.0 g/dL Alk phos 54 40 - 130 Units/L ALT 18 7 - 45 Units/L AST 22 10 - 45 Units/L CBC with auto differential Collection Time: 07/23/24 7:49 AM Result Value Ref Range WBC 7.4 3.8 - 9.9 K/cumm Hgb 13.7 11.9 - 15.5 g/dL Hct 40.4 35.6 - 45.5 % Plt 220 150 - 400 K/cumm MPV 9.3 9.1 - 12.3 fL RBC 4.67 3.90 - 5.20 M/cumm MCV 86.5 81.3 - 96.4 fL MCH 29.3 27.1 - 33.3 pg MCHC 33.9 32.3 - 35.7 g/dL RDW CV 13.2 11.1 - 14.9 % RDW SD 41.2 35.7 - 48.1 fL NRBC abs 0.00 0.00 - 0.01 K/cumm Lactate dehydrogenase (LD) Collection Time: 07/23/24 7:49 AM Result Value Ref Range Lactate dehydrogenase (LDH) 213 100 - 250 Units/L Thyroid Function [place] Collection Time: 07/23/24 7:49 AM Result Value Ref Range TSH 2.26 0.30 - 4.20 mcIUnit/mL Differential, auto Collection Time: 07/23/24 7:49 AM Result Value Ref Range Neutrophil abs 4.0 1.5 - 6.5 K/cumm Imm gran abs 0.0 0.0 - 0.1 K/cumm Lymphocyte abs 2.5 0.8 - 3.3 K/cumm Monocyte abs 0.6 0.2 - 0.8 K/cumm Eosinophil abs 0.3 0.0 - 0.5 K/cumm Basophil abs 0.1 0.0 - 0.1 K/cumm Neutrophil pct 53.7 % Imm gran pct 0.4 % Lymphocyte pct 33.4 % Monocyte pct 8.3 % Eosinophil pct 3.4 % Basophil pct 0.8 % eGFR Collection Time: 07/23/24 7:49 AM Result Value Ref Range eGFR >90 >=60 mL/min/1.73 m2 Manual Differential Collection Time: 07/23/24 7:49 AM Result Value Ref Range Differential Auto RBC morphology Present (A) Anisocytosis Slight (A) Platelet estimate Adequate Radiology: No new scans. Assessment/Plan Magui Baker [...] (BELLE on prior). Continue adjuvant pembro - one cycle today and one cycle in 3 weeks, then restaging and surveillance. MRI brain - no evidence of melanoma mets, repeat annual. TSH - previously normal T4, but low TSH. Now with normal T4 and low TSH - may be trend from hyper to hypo thyroid. Will continue to monitor and replete if needed. ROV with restaging 08/26. All questions answered. Reiterated that I remain available for additional questions that may arise going forward. documented in this encounter Plan of Treatment Not on file documented as of this encounter Results * Lactate dehydrogenase (LD) (08/27/2024 11:39 AM DBAS) Lactate dehydrogenase (LDH) 222 100 - 250 Units/L Comment:Testing performed by : [facility], [address] [place] [address] Blood 08/27/2024 11:3 9 AM DBAS 08/27/2024 11:39 AM DBAS Jose Chairez MD PhD LAB BLOOD ORDERABLES Final Result Performing Organization Address City/[facility] Co de Phone Number [facility] Department [place] [address] * Thyroid Function [place] (08/27/2024 11:39 AM DBAS) Pathologist [facility] TSH 1.84 0.30 - 4.20 mcIUnit/mL Blood 08/27/2024 11:3 9 AM DBAS 08/27/2024 1:17 PM DBAS Jose Chairez MD PhD LAB BLOOD ORDERABLES Final Result Performing Organization Address [facility] de Phone Number [facility] [place] [address] * Comprehensive metabolic panel (08/27/2024 11:39 AM DBAS) [facility] Sodium 140 135 - 145 mmol/L Comment:Testing performed by : [facility], [address] [place] [address] Potassium, pl 3.3 3.3 - 4.9 mmol/L [facility] Chloride 104 97 - 110 mmol/L [facility] CO2 25 22 - 32 mmol/L [facility] Anion gap 11 2 - 15 mmol/L [facility] BUN 14 6 - 25 mg/dL [facility] Creatinine 0.66 0.60 - 1.10 mg/dL [facility] Glucose 102 70 - 199 mg/dL [facility] Comment: Interpretive Data Fasting glucose [...] 2022. Calcium 10.1 8.5 - 10.3 mg/dL [facility] Bilirubin, total 0.4 0.1 - 1.2 mg/dL [facility] Protein, pl 7.3 6.5 - 8.5 g/dL [facility] Albumin 4.4 3.5 - 5.0 g/dL [facility] Alk phos 49 40 - 130 Units/L [facility] ALT 17 7 - 45 Units/L [facility] AST 23 10 - 45 Units/L [facility] Blood 08/27/2024 11:3 9 AM DBAS 08/27/2024 11:39 AM DBAS Jose Chairez MD PhD LAB BLOOD ORDERABLES Final Result [facility] Department [place] [address] * CBC with auto differential (08/27/2024 11:39 AM DBAS) Pathologist [facility] WBC 8.1 3.8 - 9.9 K/cumm Comment:Testing performed by : [address] [address] Hgb 13.2 11.9 - 15.5 g/dL [facility] Comment:Testing performed by : [address] [address] Hct 38.9 35.6 - 45.5 % [facility] Comment:Testing performed by : [address] [address] Plt 247 150 - 400 K/cumm [facility] Comment:Testing performed by : [address] [address] MPV 9.2 9.1 - 12.3 fL [facility] RBC 4.57 3.90 - 5.20 M/cumm [facility] MCV 85.1 81.3 - 96.4 fL [facility] MCH 28.9 27.1 - 33.3 pg [facility] MCHC 33.9 32.3 - 35.7 g/dL [facility] RDW CV 12.9 11.1 - 14.9 % [facility] RDW SD 39.9 35.7 - 48.1 fL [facility] NRBC abs 0.00 0.00 - 0.01 K/cumm [facility] Blood 08/27/2024 11:3 9 AM DBAS 08/27/2024 11:39 AM DBAS Jose Chairez MD PhD LAB BLOOD ORDERABLES Final Result [facility] Department [place] [address] * Comprehensive metabolic panel (08/13/2024 9:43 AM DBAS) Sodium 142 135 - 145 mmol/L Comment:Testing performed by : [facility], [address] [place] [address] Potassium, pl 3.5 3.3 - 4.9 mmol/L [facility] Chloride 103 97 - 110 mmol/L [facility] CO2 30 22 - 32 mmol/L [facility] Anion gap 9 2 - 15 mmol/L [facility] BUN 16 6 - 25 mg/dL [facility] Creatinine 0.65 0.60 - 1.10 mg/dL [facility] Glucose 94 70 - 199 mg/dL [facility] Comment: Interpretive Data Fasting glucose [...] 2022. Calcium 10.1 8.5 - 10.3 mg/dL [facility] Bilirubin, total 0.5 0.1 - 1.2 mg/dL [facility] Protein, pl 7.8 6.5 - 8.5 g/dL [facility] Albumin 4.6 3.5 - 5.0 g/dL [facility] Alk phos 54 40 - 130 Units/L [facility] ALT 16 7 - 45 Units/L [facility] AST 22 10 - 45 Units/L [facility] Blood 08/13/2024 9:43 AM DBAS 08/13/2024 9:43 AM DBAS us Jose Chairez MD PhD LAB BLOOD ORDERABLES Final Result [facility] Department [place] [address] * CBC with auto differential (08/13/2024 9:43 AM DBAS) [facility] WBC 9.0 3.8 - 9.9 K/cumm Comment:Testing performed by : [address] [address] Hgb 13.9 11.9 - 15.5 g/dL [facility] Comment:Testing performed by : [address] [address] Hct 40.5 35.6 - 45.5 % [facility] Comment:Testing performed by : [address] [address] Plt 232 150 - 400 K/cumm [facility] Comment:Testing performed by : [address] [address] MPV 9.4 9.1 - 12.3 fL [facility] RBC 4.75 3.90 - 5.20 M/cumm [facility] MCV 85.3 81.3 - 96.4 fL [facility] MCH 29.3 27.1 - 33.3 pg [facility] MCHC 34.3 32.3 - 35.7 g/dL [facility] RDW CV 12.8 11.1 - 14.9 % [facility] RDW SD 40.2 35.7 - 48.1 fL [facility] NRBC abs 0.00 0.00 - 0.01 K/cumm [facility] Blood 08/13/2024 9:43 AM DBAS 08/13/2024 9:43 AM DBAS Jose Chairez MD PhD LAB BLOOD ORDERABLES Final Result Performing Organization Address [facility] de Phone Number [facility] [place] [address] * Lactate dehydrogenase (LD) (08/13/2024 9:43 AM DBAS) Lactate dehydrogenase (LDH) 186 100 - 250 Units/L Comment:Testing performed by : [address] [address] Blood 08/13/2024 9:43 AM DBAS 08/13/2024 9:43 AM DBAS Jose Chairez MD PhD LAB BLOOD ORDERABLES Final Result Performing Organization Address [facility] de Phone Number [facility] [place] [address] * Thyroid Function [place] (08/13/2024 9:43 AM DBAS) Pathologist [facility] TSH 2.15 0.30 - 4.20 mcIUnit/mL Blood 08/13/2024 9:43 AM DBAS 08/13/2024 10:39 AM DBAS Jose Chairez MD PhD LAB BLOOD ORDERABLES Final Result Performing Organization Address [facility] [place] [address] documented in this encounter Visit Diagnoses Diagnosis Malignant melanoma of unknown origin (HCC)- Primary documented in this encounter Discontinued Medications Medication Sig Discontinue Reason Start Date End Da te gabapentin (NEURONTIN) 100 mg capsule Take 2 capsules (200 mg total) by mouth 3 (three) times a day for 14 days 10/31/2023 07/23/2024 hydrOXYzine (ATARAX) 10 mg tablet TAKE 1 TABLET (10 MG TOTAL) BY MOUTH NIGHTLY NEEDED FOR ITCHING 03/29/2024 07/23/2024 documented as of this encounter Orders Appointment Requests Count Last Ordered Date Fi rst Ordered Date ONCBCN CLINIC APPOINTMENT REQUEST 3 024 07/23/2024 ONCBCN LAB APPOINTMENT 2 08/27/202408/13 ONCBCN RETURN CHEMO 1.5HRS 1 08/13/2024 documented in this encounter Care Teams Authorizer Relationship Specialty Start Date End Date Becky Conroy QUALITY COMPLIANCE MANAGER [address] [place] [address] PCP - General Nurse Practitioner 07/06/23 Jose Chairez MD PhD [address] [facility] [address] [place] [address] Medical Oncologist/Computer Instructor Medical Oncology 08/14/23 Evelin Lofton MD [address] [place] [address] Referring Physician Cardiovascular Disease 08/14/23 documented as of this encounter
--- OUTSIDE RECORDS SUMMARY | 2024-09-17 04:20 | XMS_ITS | Encounter Summary ---
Author Organization [facility] Healthcare Address [address] [place] [address] Care Team Providers Care Brief Writer Name Role Phone Becky Conroy NP Primary Care Provider [phone] Jose Chairez MD PhD Unavailable [phone]- [phone] Evelin Lofton MD Unavailable [phone] Reason for Visit * MRI/CAT/PET Scan (Routine) - Closed Specialty Diagnoses / Procedures Referred By Contac t Referred To Contact Radiology Diagnoses Malignant melanoma of unknown origin (HCC) Procedures PET/CT FDG Skull to Thigh Daryl Glasgow NP [address] [facility] [address] [place] [address] Phone: tel: fax: [facility] Referral ID Status Reason Start Date Expiration Date Visits Re quested Visits Authorized [id number] Closed 06/11/2024 07/11/2025 2 2 Encounter Details Date Type Department Care Team (Latest Contact Info) Description 08/26/2024 9:07 AM INFANTRY OPERATIONS SPECIALIST - 08/26/2024 11:59 PM [facility] Hospital Encounter [facility] [address] [place] [address] Discharge Disposition: Discharge to home or self care Social History Tobacco Use Types Packs/Day Years Used Date Smoking Tobacco: Former Cigarettes 0.5 9 1 980 - 1989 Passive Smoke Exposure: Never Smokeless Tobacco: Never [...] on file Legal Sex Female 1:54 AM INFANTRY OPERATIONS SPECIALIST Gender Identity Not on file Sexual [...] Read Routine (OP Routine) 08/26/2024 11:07 AM INFANTRY OPERATIONS SPECIALIST Malignant melanoma of unknown origin (HCC) documented in this encounter Results * PET/CT FDG Skull to Thigh (08/26/2024 11:07 AM INFANTRY OPERATIONS SPECIALIST) Anatomical Region Laterality Modality N/A Positron Emissio n Tomography (PET) 08/26/2024 1:51 PM INFANTRY OPERATIONS SPECIALIST Impressions 08/26/2024 2:15 PM INFANTRY OPERATIONS SPECIALIST 1. ??No PET/CT evidence of residual/recurrent or [...] Gavin Patel M.D. Narrative 08/26/2024 2:15 PM INFANTRY OPERATIONS SPECIALIST EXAMINATION: TUMOR FDG-PET/CT IMAGING DATE OF STUDY: ??08/26/2024 SCANNER: [facility] RADIOPHARMACEUTICAL: 16.31 mCi F-18 Fluorodeoxyglucose (FDG) i.v. [...] obtained. ??The study was interpreted on the [employer] workstation. ??The mean liver SUV (reported for senior data quality analyst purposes) is 2.7. ?? The total [...] FDG-PET/CT IMAGING DATE OF STUDY: 08/26/2024 SCANNER: [facility] RADIOPHARMACEUTICAL: 16.31 mCi F-18 Fluorodeoxyglucose (FDG) i.v. [...] obtained. The study was interpreted on the [employer] workstation. The mean liver SUV (reported for senior data quality analyst purposes) is 2.7. The total scanned [...] signed by: Gavin Patel M.D. Daryl Glasgow RN CLINICAL REVIEW IMG PET PROCEDURES Final Result documented in this encounter Visit Diagnoses Not on filedocumented in this encounter Care Teams Brief Writer Relationship Specialty Start Date End Date Becky Conroy NP [address] [place] [address] PCP - General Nurse Practitioner 07/06/23 Jose Chairez MD PhD [address] [facility] [address] [place] [address] Medical Oncologist/Talent Partner Medical Oncology 08/14/23 Evelin Lofton MD [address] [place] [address] Referring Physician Cardiovascular Disease 08/14/23 documented as of this encounter
--- OUTSIDE RECORDS SUMMARY | 2024-09-17 04:20 | XMS_ITS | Encounter Summary ---
Author Organization [facility] Healthcare Address [address] [place] [address] Care Team Providers Care Baller Tender Name Role Phone Becky Conroy NP Primary Care Provider [phone] Jose Chairez MD PhD Unavailable [phone] Evelin Lofton MD Unavailable Reason for Visit * Episode Based Medications (Routine) - Closed Specialty Diagnoses / Procedures Referred By Contmarques t Referred To Contact Oncology Diagnoses Malignant melanoma of unknown origin (HCC) Jose Chairez MD PhD [address] [facility] [address] [place] [address] Phone: tel: fax: [address] [address] Phone: tel: fax: Referral ID Status Reason Start Date Expiration Date Visits Re quested Visits Authorized [id number] Closed 05/27/2024 09/04/2024 30 Encounter Details Date Type Department Care Team (Late st Contact Info) Description 05/21/2024 8:45 AM CDT Lab [address] [address] Malignant melanoma of unknown origin [...] on file 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 Gender Identity Not on file Sexual Orientation Not on file documented as of this encounter Plan of Treatment Not on file documented as of this encounter Procedures Procedure Name Priority Date/Time Associated Diagnosis Comments EGFR STAT 05/21/2024 8:31 AM CDT Malignant melanoma of unknown origin (HCC) DIFFERENTIAL AUTO Routine 05/21/2024 8:3 1 AM CDT Malignant melanoma of unknown origin (HCC) THYROID FUNCTION CASCADE Routine 05/21/2024 8:31 AM CDT Malignant melanoma of unknown origin (HCC) CBC WITH AUTO DIFFERENTIAL Routine 05/21/2024 8:31 AM CDT Malignant melanoma of unknown origin (HCC) LACTATE DEHYDROGENASE Routine 05/21/2024 8:31 AM CDT Malignant melanoma of unknown origin (HCC) COMPREHENSIVE METABOLIC PANEL STAT 05/21/2024 8:31 AM CDT Malignant melanoma of unknown origin (HCC) documented in this encounter Results * eGFR (05/21/2024 8:31 AM CDT) eGFR 81 >=60 mL/min/1. 73 m2 Comment: Interpretive Data [...] interpretive data was last reviewed 2021. Blood 05/21/2024 8:31 AM CDT 05/21/2024 8:31 AM CDT us Daryl Glasgow NP LAB BLOOD ORDERABLES [place] valadez Result [facility] [place] [address] * Differential, auto (05/21/2024 8:31 AM CDT) [facility] Neutrophil abs 5.0 1.5 - 6.5 K/cumm Comment:Testing performed by : [facility], [address] [facility] [address] Imm gran abs 0.0 0.0 - 0.1 K/cumm [facility] Lymphocyte abs 2.6 0.8 - 3.3 K/cumm [facility] Monocyte abs 0.6 0.2 - 0.8 K/cumm [facility] Eosinophil abs 0.2 0.0 - 0.5 K/cumm [facility] Basophil abs 0.1 0.0 - 0.1 K/cumm [facility] Neutrophil pct 58.9 % [facility] Comment: Interpretive Data Percent cell count reference ranges are not reported, since discordance with absolute values may lead to misinterpretation of CBC data. Current Interpretive Data was last revised on 2017. Imm gran pct 0.2 % [facility] Comment: Interpretive Data Percent cell count reference ranges are not reported, since discordance with absolute values may lead to misinterpretation of CBC data. Current Interpretive Data was last revised on 2017. Lymphocyte pct 30.6 % [facility] Comment: Interpretive Data Percent cell count reference ranges are not reported, since discordance with absolute values may lead to misinterpretation of CBC data. Current Interpretive Data was last revised on 2017. Monocyte pct 7.3 % [facility] Comment: Interpretive Data Percent cell count reference ranges are not reported, since discordance with absolute values may lead to misinterpretation of CBC data. Current Interpretive Data was last revised on 2017. Eosinophil pct 2.2 % [facility] Comment: Interpretive Data Percent cell count reference ranges are not reported, since discordance with absolute values may lead to misinterpretation of CBC data. Current Interpretive Data was last revised on 2017. Basophil pct 0.8 % [facility] Comment: Interpretive Data Percent cell count reference ranges are not reported, since discordance with absolute values may lead to misinterpretation of CBC data. Current Interpretive Data was last revised on 2017. Blood 05/21/2024 8:31 AM CDT 05/21/2024 8:31 AM CDT us Daryl Glasgow NP LAB BLOOD ORDERABLES Valencia l Result [facility] [address] [facility] Department [place] [address] * Thyroid Function [place] (05/21/2024 8:31 AM CDT) TSH 0.76 0.30 - 4.20 mcIUnit/mL Blood 05/21/2024 8:31 AM CDT 05/21/2024 9:59 AM CDT Daryl Glasgow NP LAB BLOOD ORDERABLES Valencia l Result Performing Organization Address City/[facility] Co de Phone Number [facility] [place] [address] * Lactate dehydrogenase (LD) (05/21/2024 8:31 AM CDT) [facility] Lactate dehydrogenase (LDH) 184 100 - 250 Units/L Comment:Testing performed by : [address] [address] Blood 05/21/2024 8:31 AM CDT 05/21/2024 8:31 AM CDT Daryl Glasgow NP LAB BLOOD ORDERABLES Valencia l Result Performing Organization Address [facility] de Phone Number [facility] [place] [address] * CBC with auto differential (05/21/2024 8:31 AM CDT) [facility] WBC 8.5 3.8 - 9.9 K/cumm Comment:Testing performed by : [address] [address] Hgb 14.0 11.9 - 15.5 g/dL [facility] Comment:Testing performed by : [address] [address] Hct 42.3 35.6 - 45.5 % [facility] Comment:Testing performed by : [address] [address] Plt 238 150 - 400 K/cumm [facility] Comment:Testing performed by : [address] [address] MPV 9.2 9.1 - 12.3 fL [facility] RBC 4.79 3.90 - 5.20 M/cumm [facility] MCV 88.3 81.3 - 96.4 fL [facility] MCH 29.2 27.1 - 33.3 pg [facility] MCHC 33.1 32.3 - 35.7 g/dL [facility] RDW CV 13.1 11.1 - 14.9 % [facility] RDW SD 42.2 35.7 - 48.1 fL [facility] NRBC abs 0.00 0.00 - 0.01 K/cumm [facility] Blood 05/21/2024 8:31 AM CDT 05/21/2024 8:31 AM CDT Daryl Glasgow NP LAB BLOOD ORDERABLES Valencia valadez Result [facility] Department [place] [address] * Comprehensive metabolic panel (05/21/2024 8:31 AM CDT) Pathologist [facility] Sodium 140 135 - 145 mmol/L Comment:Testing performed by : [facility], [address] [place] [address] Potassium, pl 3.8 3.3 - 4.9 mmol/L [facility] Chloride 102 97 - 110 mmol/L [facility] CO2 29 22 - 32 mmol/L [facility] Anion gap 9 2 - 15 mmol/L [facility] BUN 16 6 - 25 mg/dL [facility] Creatinine 0.74 0.60 - 1.10 mg/dL [facility] Glucose 95 70 - 199 mg/dL [facility] Comment: Interpretive Data Fasting glucose >/= [...] Calcium 9.9 8.5 - 10.3 mg/dL [facility] Bilirubin, total 0.4 0.1 - 1.2 mg/dL [facility] Protein, pl 7.7 6.5 - 8.5 g/dL [facility] Albumin 4.5 3.5 - 5.0 g/dL [facility] Alk phos 52 40 - 130 Units/L [facility] ALT 16 7 - 45 Units/L [facility] AST 22 10 - 45 Units/L [facility] Blood 05/21/2024 8:31 AM CDT 05/21/2024 8:31 AM CDT us Daryl Glasgow PATTERN SCRATCHER LAB BLOOD ORDERABLES Valencia valadez Result [facility] Department [place] [address] documented in this encounter Visit Diagnoses Diagnosis Malignant melanoma of unknown origin (HCC) documented in this encounter Orders Appointment Requests Count Last Ordered Date Fi rst Ordered Date ONCBCN LAB APPOINTMENT 1 05/21/2024 documented in this encounter Care Teams Baller Tender Relationship Specialty Start Date End Date Becky Conroy NP [address] [place] [address] PCP - General Nurse Practitioner 07/06/23 Jose Chairez MD PhD [address] [facility] [address] [place] [address] Medical Oncologist/Steam Hoist Operator Medical Oncology 08/14/23 Evelin Lofton MD [address] [place] [address] Referring Physician Cardiovascular Disease 08/14/23 documented as of this encounter
--- OUTSIDE RECORDS SUMMARY | 2024-09-17 04:20 | XMS_ITS | Encounter Summary ---
Author Organization [facility] Healthcare Address [address] [place] [address] Care Team Providers Care Sleep Scientist Name Role Phone Becky Conroy NP Primary Care Provider [phone] Jose Chairez MD PhD Unavailable [phone]- [phone] Evelin Lofton MD Unavailable [phone] Reason for Visit * MRI/CAT/PET Scan (Routine) - Closed Specialty Diagnoses / Procedures Referred By Contac t Referred To Contact Radiology Diagnoses Malignant melanoma of unknown origin (HCC) Procedures PET/CT FDG Skull to Thigh Jose Chairez MD PhD [address] [facility] [address] [place] [address] Phone: tel: fax: [facility] Referral ID Status Reason Start Date Expiration Date Visits Re quested Visits Authorized [id number] Closed 03/19/2024 04/18/2025 1 2 Encounter Details Date Type Department Care Team (Latest Contact Info) Description 06/10/2024 9:58 AM CDT - 06/10/2024 11:59 PM T Hospital Encounter [facility] [address] [place] [address] Discharge Disposition: Discharge to home [...] on file 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 Dictated by: Claritza uS MD The radiology attending physician has personally reviewed this study, and had reviewed and/or edited this written report and agrees with it. Electronically signed by: Gavin Patel M.D. Narrative 06/10/2024 12:33 PM CDT EXAMINATION: TUMOR FDG-PET/CT IMAGING DATE OF STUDY: ??06/10/2024 SCANNER: [facility] RADIOPHARMACEUTICAL: 16.5 mCi F-18 Fluorodeoxyglucose (FDG) [...] obtained. ??The study was interpreted on the [employer] workstation. ??The mean liver SUV (reported for aircraft quality control inspector purposes) is 2.9. The total scanned area [...] FDG-PET/CT IMAGING DATE OF STUDY: 06/10/2024 SCANNER: [facility] RADIOPHARMACEUTICAL: 16.5 mCi F-18 Fluorodeoxyglucose (FDG) [...] obtained. The study was interpreted on the [employer] workstation. The mean liver SUV (reported for aircraft quality control inspector purposes) is 2.9. The total scanned area [...] on filedocumented in this encounter Care Teams Sleep Scientist Relationship Specialty Start Date End Date Becky Conroy NP [address] [place] [address] PCP - General Nurse Practitioner 07/06/23 Jose Chairez MD PhD [address] [facility] [address] [place] [address] Medical Oncologist/Manager [employer] [facility] 08/14/23 Evelin Lofton MD [address] [place] [address] Referring Physician Cardiovascular Disease 08/14/23 documented as of this encounter
--- OUTSIDE RECORDS SUMMARY | 2024-09-17 04:20 | XMS_ITS | Encounter Summary ---
Author Organization [facility] Address [address] [place] [address] Phone Care Team Providers Care Investment Trader Name Role Phone Becky Conroy NP Primary Care Provider [phone] Jose Chairez MD PhD Unavailable [phone] Evelin Lofton MD Unavailable [phone] Reason for Visit * Consultation (Routine) - Closed Specialty Diagnoses / Procedures Referred By Contmarques t Referred To Contact Oncology Diagnoses Malignant melanoma of unknown origin (HCC) Becky Conroy NP [address] [place] [address] Phone: tel: fax: [facility] Oncology [address] 7[address] [place] [address] [place] [address] Phone: tel: fax: Referral ID Status Reason Start Date Expiration Date V isits Requested Visits Authorized [id number] Closed Specialty Services Required 07/06/2023 08/04/2024 12 12 Encounter Details Date Type Department Care Team (Late st Contact Info) Description 05/21/2024 9:30 AM CDT Office Visit [facility] Oncology [address] [place] [address] Jose Chairez MD PhD [address] [facility] [address] [place] [address] Malignant melanoma of unknown origin [...] on file Legal Sex Female 1:54 AM [employer] Gender Identity Not on file Sexual Orientation Not on file documented as of this encounter Last Filed Vital Signs Vital Sign Reading Time Taken Comments Blood Pressure 153/77 05/21/2024 9:35 AM CDT Pulse 70 05/21/2024 9:35 AM CDT Temperature 36.6 ??C (97.8 ??F) 05/21/2024 9:35 AM CD T Respiratory Rate 16 05/21/2024 9:35 AM CDT Oxygen Saturation 96% 05/21/2024 9:35 AM CDT Inhaled Oxygen Concentration - - Weight 66.8 kg (147 lb 3.2 oz) 05/21/2024 9:35 A M CDT Height - - Body Mass Index 24.5 11/29/2023 8:23 AM CDT documented in this encounter Progress Notes * Daryl Glasgow NP - 05/21/2024 9:30 AM CDT Oncology Progress Note Cancer [...] axillary lymph node dissection, levels 1-3. Dr Ryan Lymph node, left axillary, dissection/regional resection: Necrotic [...] (HCC) Active Treatment Plans for Magui Baker Sophia Oncology Chemotherapy Treatment: Pembrolizumab 21 Day Cycles Current day: Day 1, Cycle 14 (Planned for 05/21/2024) Following planned day: Day 1, Cycle 15 (Planned for 06/11/2024) Subjective Interval History Maguichicho Forbesphuong presents for ongoing management of melanoma. Pembrolizumab every 3 weeks. Overall doing well. Continued improvement of L arm - better range of motion. Some mild swelling in L breast but otherwise minimal lympedema. Some pink rash on arms that responds to topical steroid. No new or concerning lesions or masses. PET on 03/18/2024 showing stable postoperative changes in the left axillary lymph node dissection with likely lymphedema within the left breast. No evidence of disease recurrence. Stable indeterminate 1.2 cm right middle lobe pulmonary nodule this date back to 07/31/2023. Plan to proceed today with treatment as scheduled. No Known Allergies Outpatient Encounter Medications as of 05/21/2024: clopidogreL (PLAVIX) 75 mg tablet, Take 1 [...] 03/19/2024), Disp: 30 tablet, Rfl: 3 [DISCONTINUED] triamcinolone (KENALOG) 0.1 % cream, APPLY TO AFFECTED AREA TWICE A DAY, Disp: 80 g,Rfl: 3 Review of Systems: Review of systems per HPI and otherwise all other systems are negative Performance Status: ECOG 0 Objective Vitals: Most Recent : BP: 153/77 Temp: 36.6 ??C (97.8 ??F) Temp src: Oral Pulse: 70 Resp: 16 SpO2: 96 % Weight: 66.8 kg (147 lb 3.2 oz) Physical Exam: General Appearance: Well-appearing, in [...] Recent Results (from the past 72 hour(s)) Comprehensive metabolic panel Collection Time: 05/21/24 8:31 AM Result Value Ref Range Sodium 140 135 - 145 mmol/L Potassium, pl 3.8 3.3 - 4.9 mmol/L Chloride 102 97 - 110 mmol/L CO2 29 22 - 32 mmol/L Anion gap 9 2 - 15 mmol/L BUN 16 6 - 25 mg/dL Creatinine 0.74 0.60 - 1.10 mg/dL Glucose 95 70 - 199 mg/dL Calcium 9.9 8.5 - 10.3 mg/dL Bilirubin, total 0.4 0.1 - 1.2 mg/dL Protein, pl 7.7 6.5 - 8.5 g/dL Albumin 4.5 3.5 - 5.0 g/dL Alk phos 52 40 - 130 Units/L ALT 16 7 - 45 Units/L AST 22 10 - 45 Units/L CBC with auto differential Collection Time: 05/21/24 8:31 AM Result Value Ref Range WBC 8.5 3.8 - 9.9 K/cumm Hgb 14.0 11.9 - 15.5 g/dL Hct 42.3 35.6 - 45.5 % Plt 238 150 - 400 K/cumm MPV 9.2 9.1 - 12.3 fL RBC 4.79 3.90 - 5.20 M/cumm MCV 88.3 81.3 - 96.4 fL MCH 29.2 27.1 - 33.3 pg MCHC 33.1 32.3 - 35.7 g/dL RDW CV 13.1 11.1 - 14.9 % RDW SD 42.2 35.7 - 48.1 fL NRBC abs 0.00 0.00 - 0.01 K/cumm Lactate dehydrogenase (LD) Collection Time: 05/21/24 8:31 AM Result Value Ref Range Lactate dehydrogenase (LDH) 184 100 - 250 Units/L Differential, auto Collection Time: 05/21/24 8:31 AM Result Value Ref Range Neutrophil abs 5.0 1.5 - 6.5 K/cumm Imm gran abs 0.0 0.0 - 0.1 K/cumm Lymphocyte abs 2.6 0.8 - 3.3 K/cumm Monocyte abs 0.6 0.2 - 0.8 K/cumm Eosinophil abs 0.2 0.0 - 0.5 K/cumm Basophil abs 0.1 0.0 - 0.1 K/cumm Neutrophil pct 58.9 % Imm gran pct 0.2 % Lymphocyte pct 30.6 % Monocyte pct 7.3 % Eosinophil pct 2.2 % Basophil pct 0.8 % eGFR Collection Time: 05/21/24 8:31 AM Result Value Ref Range eGFR 81 >=60 mL/min/1.73 m2 Radiology: PET/CT FDG Skull to Thigh Result [...] and agrees with it. Electronically signed by: Hernanod Cordova M.D. PET/CT FDG Skull to Thigh Narrative: EXAMINATION: TUMOR FDG-PET/CT IMAGING DATE OF STUDY: 03/18/2024 SCANNER: [facility] RADIOPHARMACEUTICAL: 16.7 mCi F-18 Fluorodeoxyglucose (FDG) i.v. [...] obtained. The study was interpreted on the Pogoapp workstation. The mean liver SUV (reported for senior quality technician purposes) is 2.6. The total scanned area [...] 3 weeks plan to re-stage again in June MRI brain - no evidence of melanoma mets, repeat annual. TSH - previously normal T4, but low TSH. Now with normal TSH - may be trend from hyper to hypo thyroid. Will continue to monitor and replete if needed. RTC 3 weeks for next cycle IO. Restaging again in June.. All questions answered. Reiterated that I remain available for additional questions that may arise going forward. [place] CORDERO-C Nurse Practitioner Medical Oncology Drop Hammer Operator Helper completed by using M*Modal Fluency Direct speaking software, therefore, transcriptionvariances may occur. documented in this encounter Plan of Treatment Not on file documented as of this encounter Results * Comprehensive metabolic panel (06/11/2024 8:18 AM CDT) Sodium 139 135 - 145 mmol/L Comment:Testing performed by : [facility], [address] [place] [address] Potassium, pl 3.9 3.3 - 4.9 mmol/L [facility] Chloride 102 97 - 110 mmol/L [facility] CO2 28 22 - 32 mmol/L [facility] Anion gap 9 2 - 15 mmol/L [facility] BUN 17 6 - 25 mg/dL [facility] Creatinine 0.66 0.60 - 1.10 mg/dL [facility] Glucose 74 70 - 199 mg/dL [facility] Comment: Interpretive Data Fasting glucose >/= [...] Calcium 9.9 8.5 - 10.3 mg/dL [facility] Bilirubin, total 0.6 0.1 - 1.2 mg/dL [facility] Protein, pl 7.5 6.5 - 8.5 g/dL [facility] Albumin 4.6 3.5 - 5.0 g/dL [facility] Alk phos 48 40 - 130 Units/L [facility] ALT 17 7 - 45 Units/L [facility] AST 23 10 - 45 Units/L [facility] Blood 06/11/2024 8:18 AM CDT 06/11/2024 8:18 AM CDT Daryl Glasgow APARTMENT LEASING MANAGER LAB BLOOD ORDERABLES Valencia l Result Performing Organization Address City/[facility] Co de Phone Number [facility] [place] [address] * (ABNORMAL) CBC with auto differential (06/11/2024 8:18 AM CDT) [facility] WBC 10.0(H) 3.8 - 9.9 K/cumm Comment:Testing performed by : [address] [address] Hgb 14.0 11.9 - 15.5 g/dL [facility] Comment:Testing performed by : [address] [address] Hct 42.6 35.6 - 45.5 % [facility] Comment:Testing performed by : [address] [address] Plt 273 150 - 400 K/cumm [facility] Comment:Testing performed by : [address] [address] MPV 9.1 9.1 - 12.3 fL [facility] RBC 4.81 3.90 - 5.20 M/cumm [facility] MCV 88.6 81.3 - 96.4 fL [facility] MCH 29.1 27.1 - 33.3 pg [facility] MCHC 32.9 32.3 - 35.7 g/dL [facility] RDW CV 13.1 11.1 - 14.9 % [facility] RDW SD 42.5 35.7 - 48.1 fL [facility] NRBC abs 0.00 0.00 - 0.01 K/cumm [facility] Blood 06/11/2024 8:18 AM CDT 06/11/2024 8:18 AM CDT Daryl Glasgow NP LAB BLOOD ORDERABLES Valencia l Result Performing Organization Address City/[facility] Co de Phone Number [facility] [place] [address] * Lactate dehydrogenase (LD) (06/11/2024 8:18 AM CDT) Lactate dehydrogenase (LDH) 198 100 - 250 Units/L Comment:Testing performed by : [facility], [address] [place] [address] Blood 06/11/2024 8:18 AM CDT 06/11/2024 8:18 AM CDT Daryl Glasgow APARTMENT LEASING MANAGER LAB BLOOD ORDERABLES Valencia l Result [facility] [place] [address] * Thyroid Function [place] (06/11/2024 8:18 AM CDT) Pathologist [facility] TSH 1.07 0.30 - 4.20 mcIUnit/mL Blood 06/11/2024 8:18 AM CDT 06/11/2024 10:09 AM CDT Daryl Glasgow APARTMENT LEASING MANAGER LAB BLOOD ORDERABLES Valencia l Result Performing Organization Address City/[facility] Co de Phone Number [facility] [place] [address] documented in this encounter Visit Diagnoses Diagnosis Malignant melanoma of unknown origin (HCC)- Primary documented in this encounter Orders Appointment Requests Count Last Ordered Date Fi rst Ordered Date ONCBCN CLINIC APPOINTMENT REQUEST 2 024 05/21/2024 ONCBCN LAB APPOINTMENT 1 06/11/2024 ONCBCN RETURN CHEMO 1.5HRS 1 06/11/2024 documented in this encounter Care Teams Investment Trader Relationship Specialty Start Date End Date Becky Conroy NP [address] [place] [address] PCP - General Nurse Practitioner 07/06/23 Jose Chairez MD PhD [address] [facility] [address] [address] [address] [place] [address] Medical Oncologist/Neurosurgery Research Director Medical Oncology 08/14/23 Evelin Lofton MD [address] [place] [address] Referring Physician Cardiovascular Disease 08/14/23 documented as of this encounter
--- OUTSIDE RECORDS SUMMARY | 2024-09-17 04:20 | XMS_ITS | Encounter Summary ---
Author Organization [facility] Address [address] [place] [address] Care Team Providers Care Software Performance Engineer Name Role Phone Becky Conroy NP Primary Care Provider [phone] Jose Chairez MD PhD Unavailable [phone]- [phone] Evelin Lofton MD Unavailable [phone] Reason for Visit * Reason Comments Immunotherapy * Episode Based Medications (Routine) - Closed Specialty Diagnoses / Procedures Referred By Contac t Referred To Contact Oncology Diagnoses Malignant melanoma of unknown origin (HCC) Jose Chairez MD PhD [address] [facility] [address] [place] [address] Phone: tel: fax: [address] [address] Phone: tel: fax: Referral ID Status Reason Start Date Expiration Date Visits Re quested Visits Authorized [id number] Closed 05/27/2024 09/04/2024 1 30 Encounter Details Date Type Department Care Team (Late st Contact Info) Description 04/30/2024 10:45 AM CDT Infusion [address] [id number] Malignant melanoma of unknown origin (HCC) (Primary [...] on file Legal Sex Female 1:54 AM PATROL 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 female who presents for treatment cycle 13, day 1 of Pembrolizumab. Pre-treatment Nursing Assessment Nursing Assessment LOC: Alert, Awake Fatigue: None Any falls since your last visit?: No Orientation: Oriented x4 Behavior: Calm Speech: Clear Language: No aphasia Vision: At baseline Peripheral Neuropathy: No Oral Mucosa Grade: Normal (0) Pt states has potential to be ?: N/A Shortness of Breath?: No Appetite: Good What diet do you follow at home?: reg Have You Recently Lost Weight Without Trying?: No Have you been eating poorly because of a decreased appetite?: No Malnutrition Screening Tool (MST) Score: 0 Nausea/Vomiting: No Diarrhea: No Constipation: No Skin Condition/Temp: Warm, Dry Rash Location: bilateral arms - has topical creams - MD aware Swelling: No Additional Notes: Patient saw MD today. Encounter Vitals BP: 145/69 (04/30/2024 10:00 AM) Pulse: 73 (04/30/2024 10:00 AM) Resp: 17 (04/30/2024 10:00 AM) Temp: 36.4 ??C (97.5 ??F) (04/30/2024 10:00 AM) Temp src: Oral (04/30/2024 10:00 AM) SpO2: 98 % (04/30/2024 10:00 AM) Weight: 65.5 kg (144 lb 8 oz) (04/30/2024 10:00 AM) Pain Score: 0 - No pain [...] mg in sodium chloride 0.9% 100 mL IVPB 200 mg, intravenous, at 236 mL/hr, Administer over 30 Minutes, Once, On Mon04/30/24 at 1130, For 1 dose, Use 0.2-5 micron filter, low-sorbing, low protein binding.Indications:Malignan t melanoma of unknown origin (HCC) New Bag 04/30/2024 11:34 AM CDT 200 mg 236 mL/hr documented in this encounter Orders Medications Ordered That Stalin ht Not Have Been Administered Count Last Ordered Date First Ordered Date pembrolizumab (KEYTRUDA) 200 mg in sodium chloride 0.9% 100 mL IVPB 1 04/30/2024 Nursing Count Last Ordered Date First Orde red Date ONCBCN PROVIDER COMMUNICATION 2 1 4 ONCBCN TREATMENT PARAMETERS 3 1 04/30/2024 Appointment Requests Count Last Ordered Date Fi rst Ordered Date ONCBCN RETURN CHEMO 1.5HRS 1 04/30/2024 documented in this encounter Care Teams Software Performance Engineer Relationship Specialty Start Date End Date Becky Conroy NP [address] [place] [address] PCP - General Nurse Practitioner 07/06/23 Jose Chairez MD PhD [address] [facility] [address] [place] [address] Medical Oncologist/Laminated Plastics Assembler And Gluer Medical Oncology 08/14/23 Evelin Lofton MD [address] [place] [address] Referring Physician Cardiovascular Disease 08/14/23 documented as of this encounter
--- OUTSIDE RECORDS SUMMARY | 2024-09-17 04:20 | XMS_ITS | Clinical Summary ---
Author Organization [facility] Address [address] [place] [address] Care Team Providers Care Binder Technician Name Role Phone Becky Conroy NP Primary Care Provider [phone] Jose Chairez MD PhD Unavailable [phone] Evelin Lofton MD Unavailable [phone] Allergies No known active allergies Medications clopidogreL (PLAVIX) 75 mg tabletIndication s:Myocardial Reinfarction Prevention,Throm bosis Prevention after PCI,1 cardiac stent Take 1 tablet (75 mg total) by mouth every morning 06/26/20 23 Active enalapril (VASOTEC) 10 mg tabletIndication s:hypertension Take 1 tablet (10 mg total) by mouth every morning Active omega-3 fatty acids 500 mg capsuleIndicatio ns:supplement Take 1 tablet by mouth every morning 12/25/19 15 Active zinc gluconate 50 mg tabletIndication s:supplement Take 1 tablet (50 mg total) by mouth every morning Active esomeprazole DR (NexIUM) 40 mg capsuleIndicatio ns:acid reflux Take 1 capsule (40 mg total) by mouth as needed 05/08/20 08 Active furosemide (LASIX) 20 mg tabletIndication s:Edema Take 1 tablet (20 mg total) by mouth as needed Active hydroCHLOROthiaz eliu (HYDRODIURIL) 25 mg tabletIndication s:Edema,hyperten ann-marie Take 1 tablet (25 mg total) by mouth every morning Active metoprolol XL (TOPROL-XL) 50 mg extended release tabletIndication s:hypertension Take 1 tablet (50 mg total) by mouth every morning Active potassium chloride ER 10 mEq CR tabletIndication s:hypokalemia prevention Take 1 tablet/capsul e (10 mEq total) by mouth every morning Active rosuvastatin (CRESTOR) 10 mg tabletIndication s:hyperlipidemia Take 0.5 tablets (5 mg total) by mouth every morning 0.5 tablet Active ergocalciferol, vitamin D2, 10 mcg (400 unit) tabletIndication s:Prevention of Vitamin D Deficiency Take 1 tablet by mouth every morning 10/09/19 10 Active meloxicam (MOBIC) 7.5 mg tablet Take 1 tablet (7.5 mg total) by mouth as needed for pain Active mupirocin (BACTROBAN) 2 % ointmentIndicati ons:Minor Bacterial Skin Infections Apply topically as needed 08/15/20 23 Active multivitamin tabletIndication s:Vitamin Deficiency Prevention Take 1 tablet by mouth every morning Active nystatin cream Apply topically 2 (two) times a day 11/27/19 24 Active vibegron (Gemtesa) 75 mg tablet Take 1 each by mouth daily Active triamcinolone (KENALOG) 0.1 % cream APPLY TO AFFECTED AREA TWICE A DAY 80 g 3 09/06/20 24 Active prochlorperazine (Compazine) 10 mg tabletIndication s:Malignant melanoma of unknown origin (HCC) Take 1 tablet (10 mg total) by mouth every 6 (six) hours as needed for nausea or vomiting 30 tablet 3 08/07/20 23 024 Discontinued triamcinolone (KENALOG) 0.1 % cream APPLY TO AFFECTED AREA TWICE A DAY 80 g 3 05/06/20 24 024 Discontinued Active Problems Problem Noted Date Diagnosed Date Metastatic malignant melanoma 10/11/2023 Metastatic melanoma 08/31/2023 Pain in right foot 08/24/2023 Benign essential HTN 07/18/2023 Dyslipidemia 07/18/2023 Malignant melanoma of unknown origin 07/18/2023 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 09/28/2016 Atherosclerosis of [place] co ronary artery of [place] heart without angina pectoris 03/04/2016 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 Overview (07/18/2023): March 2003 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 Encounters Date Type Department Care Team Description 08/27/2024 1:00 PM PERCUSSION WELDING MACHINE OPERATOR Office Visit [facility] [address] [place] [phone] Jose Chairez MD PhD Malignant melanoma of unknown origin (HCC) (Primary Dx); 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); Melanoma of axilla (HCC) 08/27/2024 12:30 PM PERCUSSION WELDING MACHINE OPERATOR Lab [address] [address] Malignant melanoma of unknown origin (HCC) 08/26/2024 9:07 AM PERCUSSION WELDING MACHINE OPERATOR - 08/26/2024 11:59 PM PERCUSSION WELDING MACHINE OPERATOR Hospital Encounter [facility] [address] [place] [address] Discharge Disposition: Discharge to home or self care 08/26/2024 9:06 AM PERCUSSION WELDING MACHINE OPERATOR - 08/26/2024 11:59 PM PERCUSSION WELDING MACHINE OPERATOR Hospital Encounter [facility] [address] [place] [address] Malignant melanoma of unknown origin (HCC) Discharge Disposition: Discharge to home or self care 08/21/2024 Orders Only [facility] [address] [place] [phone] Jose Chairez MD PhD 08/13/2024 12:00 PM PERCUSSION WELDING MACHINE OPERATOR [address] [phone] Malignant melanoma of unknown origin (HCC) (Primary Dx) 08/13/2024 11:00 AM PERCUSSION WELDING MACHINE OPERATOR Office Visit [facility] [address] [place] [phone] Jose Chairez MD PhD Malignant melanoma of unknown origin (HCC) 08/13/2024 10:30 AM PERCUSSION WELDING MACHINE OPERATOR Lab [address] [address] Malignant melanoma of unknown origin (HCC) 07/23/2024 9:15 AM PERCUSSION WELDING MACHINE OPERATOR Infusion [address] [address] Malignant melanoma of unknown origin (HCC) (Primary Dx) 07/23/2024 8:15 AM PERCUSSION WELDING MACHINE OPERATOR Office Visit [facility] [address] [place] [phone] Jose Chairez MD PhD Malignant melanoma of unknown origin (HCC) (Primary Dx) 07/23/2024 7:45 AM PERCUSSION WELDING MACHINE OPERATOR Lab [address] [address] Malignant melanoma of unknown origin (HCC) 07/10/2024 Telephone [facility] [address] [place] [phone] Asya Giles RN 07/02/2024 10:00 AM CDT Infusion [address] [address] Malignant melanoma of unknown origin (HCC) (Primary Dx) 07/02/2024 9:00 AM CDT Office Visit [facility] [address] [place] [phone] Jose Chairez MD PhD Malignant melanoma of unknown origin (HCC) (Primary Dx) 07/02/2024 8:15 AM CDT Lab [address] [address] Malignant melanoma of unknown origin (HCC) from Last 3 Months Immunizations Name Administration Dates Next Due Influenza, Quad, Adjuvantated, Intramuscular 07/2023,06/22/2021 Influenza, Quadrivalent, Split, Intramuscular Pneumococcal Polysaccharide PPV23 03/11/2018 ZOSTER LIVE 07/04/2015 ZOSTER Recombinant 02/02/2023,10/04/2022 Surgical History Surgery Date Site/Laterality Comments HYSTERECTOMY 09/11/1987 - 09/10/1988 INCONTINENCE SURGERY 07/12/2008 - 08/10/2008 vaginal sling APPENDECTOMY As a child CHOLECYSTECTOMY 09/11/2002 - 09/10/2003 TONSILLECTOMY 09/11/1972 - 09/10/1973 COLON SURGERY 09/11/2002 - 09/10/2003 COLONOSCOPY 09/11/2007 - 09/10/2008 CARDIAC STENT PLACEMENT 09/11/2002 - 09/10/2003 1 stent placed ABSCESS CATHETER INJECTION 11/29/2023 N/A Medical History Medical History Date Comments Personal history of other di seases of the circulatory system History of hypertension - (A dded by DELIA Kinney) Old myocardial infarction Past m yocardial infarction - (Added by DELIA Kinney) Melanoma (HCC) Motion sickness Hypertension Family History Medical History Relation Name Comments Stroke Brother Stroke Father Hypertension Mother Stroke Mother Stroke Sister Relation Name Status Comments Brother Father Mother Sister Social History Tobacco Use Types Packs/Day Years Used Date Smoking Tobacco: Former Cigarettes 0.5 9 1 - 1988 Passive Smoke Exposure: Never Smokeless Tobacco: Never Tobacco Cessation:Counseling Given: Not Answered AUDIT-C Answer Date Recorded Q1: How often [...] on file Legal Sex Female 1:54 AM PERCUSSION WELDING MACHINE OPERATOR Gender Identity Not on file Sexual Orientation Not on file Obstetrics History Last Filed Vital Signs Vital Sign Reading Time Taken Comments Blood Pressure 156/75 08/27/2024 12:54 PM PERCUSSION WELDING MACHINE OPERATOR Pulse 70 08/27/2024 12:54 PM PERCUSSION WELDING MACHINE OPERATOR Temperature 36.5 ??C (97.7 ??F) 08/27/2024 12:[address] Respiratory Rate 16 08/27/2024 12:54 PM PERCUSSION WELDING MACHINE OPERATOR Oxygen Saturation 95% 08/27/2024 12:54 PM PERCUSSION WELDING MACHINE OPERATOR Inhaled Oxygen Concentration - - Weight 67.3 kg (148 lb 6.4 oz) 08/27/2024 12:54 PM PERCUSSION WELDING MACHINE OPERATOR Height 165.1 cm (5' 5 ) 11/29/2023 8:23 AM CDT Body Mass Index 24.7 11/29/2023 8:23 AM CDT Plan of Treatment Health Maintenance Due Date Last Done Comments Depression Screening 1945 Osteoporosis Screening-Bone Density Scan 1945 DTaP/Tdap/Td Vaccine (1 - Tdap) 1954 Hepatitis B Screening 1961 Well Visit 65+ 2008 Pneumococcal vaccine 65+ (2 of 2 - PCV) 03/11/2019 03/11/2018 Covid-19 Vaccine (6 - 2023-2 5 season) 2024 06/24/2022, 01/03/2022, 07/09/2021, Additional history exists Influenza Vaccine (#1) 2024 , 06/22/2021, 03/11/2018 Fall Risk Assessment 11/22/2024 11/23/2023 Zoster Vaccine Completed 02/02/2023, 09/12, 07/04/2015 Medical Devices Implanted Type Area Coin Wrapping Machine Operator Device Identifier Shelf Expiration Date Model / Serial / Lot Cardiac Stent X 1 N/A: Heart Procedures Procedure Name Priority Date/Time Associated Diagnosis Comments EGFR Routine 08/27/2024 11:39 AM PERCUSSION WELDING MACHINE OPERATOR Malignant melanoma of unknown origin (HCC) DIFFERENTIAL AUTO Routine 08/27/2024 11: 39 AM PERCUSSION WELDING MACHINE OPERATOR Malignant melanoma of unknown origin (HCC) CBC WITH AUTO DIFFERENTIAL Routine 08/27/2024 11:39 AM PERCUSSION WELDING MACHINE OPERATOR Malignant melanoma of unknown origin (HCC) COMPREHENSIVE METABOLIC PANEL Routine 08/27/2024 11:39 AM PERCUSSION WELDING MACHINE OPERATOR Malignant melanoma of unknown origin (HCC) THYROID FUNCTION CASCADE Routine 08/27/2024 11:39 AM PERCUSSION WELDING MACHINE OPERATOR Malignant melanoma of unknown origin (HCC) LACTATE DEHYDROGENASE Routine 08/27/2024 11:39 AM PERCUSSION WELDING MACHINE OPERATOR Malignant melanoma of unknown origin (HCC) PET/CT FDG SKULL TO THIGH Schedule Routine, Read Routine (OP Routine) 08/26/2024 11:07 AM PERCUSSION WELDING MACHINE OPERATOR Malignant melanoma of unknown origin (HCC) EGFR STAT 08/13/2024 9:43 AM PERCUSSION WELDING MACHINE OPERATOR Malignant melanoma of unknown origin (HCC) DIFFERENTIAL AUTO Routine 08/13/2024 9:4 3 AM PERCUSSION WELDING MACHINE OPERATOR Malignant melanoma of unknown origin (HCC) THYROID FUNCTION CASCADE Routine 08/13/2024 9:43 AM PERCUSSION WELDING MACHINE OPERATOR Malignant melanoma of unknown origin (HCC) LACTATE DEHYDROGENASE Routine 08/13/2024 9:43 AM PERCUSSION WELDING MACHINE OPERATOR Malignant melanoma of unknown origin (HCC) CBC WITH AUTO DIFFERENTIAL Routine 08/13/2024 9:43 AM PERCUSSION WELDING MACHINE OPERATOR Malignant melanoma of unknown origin (HCC) COMPREHENSIVE METABOLIC PANEL STAT 08/13/2024 9:43 AM PERCUSSION WELDING MACHINE OPERATOR Malignant melanoma of unknown origin (HCC) MANUAL DIFFERENTIAL Routine 07/23/2024 7 :49 AM PERCUSSION WELDING MACHINE OPERATOR Malignant melanoma of unknown origin (HCC) EGFR STAT 07/23/2024 7:49 AM PERCUSSION WELDING MACHINE OPERATOR Malignant melanoma of unknown origin (HCC) DIFFERENTIAL AUTO Routine 07/23/2024 7:4 9 AM PERCUSSION WELDING MACHINE OPERATOR Malignant melanoma of unknown origin (HCC) THYROID FUNCTION CASCADE Routine 07/23/2024 7:49 AM PERCUSSION WELDING MACHINE OPERATOR Malignant melanoma of unknown origin (HCC) LACTATE DEHYDROGENASE Routine 07/23/2024 7:49 AM PERCUSSION WELDING MACHINE OPERATOR Malignant melanoma of unknown origin (HCC) CBC WITH AUTO DIFFERENTIAL Routine 07/23/2024 7:49 AM PERCUSSION WELDING MACHINE OPERATOR Malignant melanoma of unknown origin (HCC) COMPREHENSIVE METABOLIC PANEL STAT 07/23/2024 7:49 AM PERCUSSION WELDING MACHINE OPERATOR Malignant melanoma of unknown origin (HCC) EGFR STAT 07/02/2024 7:59 AM CDT Malignant [...] CDT Malignant melanoma of unknown origin (HCC) from Last 3 Months Results * eGFR (08/27/2024 11:39 AM PERCUSSION WELDING MACHINE OPERATOR) eGFR 88 >=60 mL/min/1. 73 m2 Comment: [...] reviewed 2021. Blood 08/27/2024 11:3 9 AM PERCUSSION WELDING MACHINE OPERATOR 08/27/2024 11:52 AM PERCUSSION WELDING MACHINE OPERATOR us Jose Chairez MD PhD LAB BLOOD ORDERABLES Final Result [facility] Department [place] [address] * Differential, auto (08/27/2024 11:39 AM PERCUSSION WELDING MACHINE OPERATOR) Neutrophil abs 4.9 1.5 - 6.5 K/cumm Comment:Testing performed by : [facility], [address] [place] [id number] Imm gran abs 0.0 0.0 - 0.1 K/cumm [facility] Lymphocyte abs 2.4 0.8 - 3.3 K/cumm [facility] Monocyte abs 0.6 0.2 - 0.8 K/cumm [facility] Eosinophil abs 0.2 0.0 - 0.5 K/cumm [facility] Basophil abs 0.1 0.0 - 0.1 K/cumm [facility] Neutrophil pct 59.9 % [facility] Comment: Interpretive Data Percent cell count reference ranges are not reported, since discordance with absolute values may lead to misinterpretation of CBC data. Current Interpretive Data was last revised on 2017. Imm gran pct 0.4 % [facility] Comment: Interpretive Data Percent cell count reference ranges are not reported, since discordance with absolute values may lead to misinterpretation of CBC data. Current Interpretive Data was last revised on 2017. Lymphocyte pct 29.3 % [facility] Comment: Interpretive Data Percent cell count reference ranges are not reported, since discordance with absolute values may lead to misinterpretation of CBC data. Current Interpretive Data was last revised on 2017. Monocyte pct 7.6 % [facility] Comment: Interpretive Data Percent cell count reference ranges are not reported, since discordance with absolute values may lead to misinterpretation of CBC data. Current Interpretive Data was last revised on 2017. Eosinophil pct 2.1 % [facility] Comment: Interpretive Data Percent cell count reference ranges are not reported, since discordance with absolute values may lead to misinterpretation of CBC data. Current Interpretive Data was last revised on 2017. Basophil pct 0.7 % [facility] Comment: Interpretive Data Percent cell count reference ranges are not reported, since discordance with absolute values may lead to misinterpretation of CBC data. Current Interpretive Data was last revised on 2017. Blood 08/27/2024 11:3 9 AM PERCUSSION WELDING MACHINE OPERATOR 08/27/2024 11:39 AM PERCUSSION WELDING MACHINE OPERATOR Jose Chairez MD PhD LAB BLOOD ORDERABLES Final Result Performing Organization Address City/[facility]/ZIP Co de Phone Number [facility] Department [place] [address] * Thyroid Function [place] (08/27/2024 11:39 AM PERCUSSION WELDING MACHINE OPERATOR) Pathologist [facility] TSH 1.84 0.30 - 4.20 mcIUnit/mL Blood 08/27/2024 11:3 9 AM PERCUSSION WELDING MACHINE OPERATOR 08/27/2024 1:17 PM PERCUSSION WELDING MACHINE OPERATOR Jose Chairez MD PhD LAB BLOOD ORDERABLES Final Result Performing Organization Address City/[facility] Co de Phone Number [facility] Department [place] [address] * CBC with auto differential (08/27/2024 11:39 AM PERCUSSION WELDING MACHINE OPERATOR) WBC 8.1 3.8 - 9.9 K/cumm Comment:Testing performed by : [address] [address] Hgb 13.2 11.9 - 15.5 g/dL [facility] Comment:Testing performed by : [address] [address] Hct 38.9 35.6 - 45.5 % [facility] Comment:Testing performed by : [address] [address] Plt 247 150 - 400 K/cumm [facility] Comment:Testing performed by : [address] [address] MPV 9.2 9.1 - 12.3 fL [facility] RBC 4.57 3.90 - 5.20 M/cumm [facility] MCV 85.1 81.3 - 96.4 fL [facility] MCH 28.9 27.1 - 33.3 pg [facility] MCHC 33.9 32.3 - 35.7 g/dL [facility] RDW CV 12.9 11.1 - 14.9 % [facility] RDW SD 39.9 35.7 - 48.1 fL [facility] NRBC abs 0.00 0.00 - 0.01 K/cumm [facility] Blood 08/27/2024 11:3 9 AM PERCUSSION WELDING MACHINE OPERATOR 08/27/2024 11:39 AM PERCUSSION WELDING MACHINE OPERATOR us Jose Chairez MD PhD LAB BLOOD ORDERABLES Final Result Performing Organization Address City/[facility]/ZIP Co de Phone Number [facility] Department [place] [address] * Lactate dehydrogenase (LD) (08/27/2024 11:39 AM PERCUSSION WELDING MACHINE OPERATOR) Lactate dehydrogenase (LDH) 222 100 - 250 Units/L Comment:Testing performed by : [address] [address] Blood 08/27/2024 11:3 9 AM PERCUSSION WELDING MACHINE OPERATOR 08/27/2024 11:39 AM PERCUSSION WELDING MACHINE OPERATOR Jose Chairez MD PhD LAB BLOOD ORDERABLES Final Result Performing Organization Address City/[facility] Co de Phone Number [facility] Department [place] [address] * Comprehensive metabolic panel (08/27/2024 11:39 AM PERCUSSION WELDING MACHINE OPERATOR) Sodium 140 135 - 145 mmol/L Comment:Testing performed by : [address] [place], [place] [address] Potassium, pl 3.3 3.3 - 4.9 mmol/L [facility] Chloride 104 97 - 110 mmol/L [facility] CO2 25 22 - 32 mmol/L [facility] Anion gap 11 2 - 15 mmol/L [facility] BUN 14 6 - 25 mg/dL [facility] Creatinine 0.66 0.60 - 1.10 mg/dL [facility] Glucose 102 70 - 199 mg/dL [facility] Comment: Interpretive Data Fasting glucose >/= 126 [...] 2022. Calcium 10.1 8.5 - 10.3 mg/dL [facility] Bilirubin, total 0.4 0.1 - 1.2 mg/dL [facility] Protein, pl 7.3 6.5 - 8.5 g/dL [facility] Albumin 4.4 3.5 - 5.0 g/dL [facility] Alk phos 49 40 - 130 Units/L [facility] ALT 17 7 - 45 Units/L [facility] AST 23 10 - 45 Units/L [facility] Blood 08/27/2024 11:3 9 AM PERCUSSION WELDING MACHINE OPERATOR 08/27/2024 11:39 AM PERCUSSION WELDING MACHINE OPERATOR us Jose Chairez MD PhD LAB BLOOD ORDERABLES Final Result [facility] Department [place] [address] * PET/CT FDG Skull to Thigh (08/26/2024 11:07 AM PERCUSSION WELDING MACHINE OPERATOR) Anatomical Region Laterality Modality N/A Positron Emissio n Tomography (PET) 08/26/2024 1:51 PM PERCUSSION WELDING MACHINE OPERATOR Impressions 08/26/2024 2:15 PM PERCUSSION WELDING MACHINE OPERATOR 1. ??No PET/CT evidence of residual/recurrent or [...] Gavin Patel M.D. Narrative 08/26/2024 2:15 PM PERCUSSION WELDING MACHINE OPERATOR EXAMINATION: TUMOR FDG-PET/CT IMAGING DATE OF STUDY: ??08/26/2024 SCANNER: [facility] RADIOPHARMACEUTICAL: 16.31 mCi F-18 Fluorodeoxyglucose [...] obtained. ??The study was interpreted on the Picurio workstation. ??The mean liver SUV (reported for quality head purposes) is 2.7. ?? The total scanned [...] FDG-PET/CT IMAGING DATE OF STUDY: 08/26/2024 SCANNER: [facility] RADIOPHARMACEUTICAL: 16.31 mCi F-18 Fluorodeoxyglucose [...] obtained. The study was interpreted on the [employer] workstation. The mean liver SUV (reported for quality head purposes) is 2.7. The total scanned area [...] 07/31/2023. Attention on imaging follow-up. Dictated by: Ceho Fierro MD The radiology attending physician has personally reviewed this study, and had reviewed and/or edited this written report and agrees with it. Electronically signed by: Gavin Patel M.D. us Daryl Glasgow SUPERVISOR [employer] IMG PET PROCEDURES Final Result * eGFR (08/13/2024 9:43 AM PERCUSSION WELDING MACHINE OPERATOR) eGFR 88 >=60 mL/min/1. 73 m2 Comment: [...] last reviewed 2021. Blood 08/13/2024 9:43 AM PERCUSSION WELDING MACHINE OPERATOR 08/13/2024 9:43 AM PERCUSSION WELDING MACHINE OPERATOR us Jose Chairez MD PhD LAB BLOOD ORDERABLES Final Result [facility] Department [place] [address] * (ABNORMAL) Differential, auto (08/13/2024 9:43 AM PERCUSSION WELDING MACHINE OPERATOR) Neutrophil abs 5.3 1.5 - 6.5 K/cumm Comment:Testing performed by : [facility], [address] [place] [id number] Imm gran abs 0.0 0.0 - 0.1 K/cumm [facility] Lymphocyte abs 2.6 0.8 - 3.3 K/cumm [facility] Monocyte abs 0.9(H) 0.2 - 0.8 K/cumm [facility] Eosinophil abs 0.2 0.0 - 0.5 K/cumm [facility] Basophil abs 0.1 0.0 - 0.1 K/cumm [facility] Neutrophil pct 58.4 % [facility] Comment: Interpretive Data Percent cell count reference ranges are not reported, since discordance with absolute values may lead to misinterpretation of CBC data. Current Interpretive Data was last revised on 2017. Imm gran pct 0.3 % [facility] Comment: Interpretive Data Percent cell count reference ranges are not reported, since discordance with absolute values may lead to misinterpretation of CBC data. Current Interpretive Data was last revised on 2017. Lymphocyte pct 28.5 % [facility] Comment: Interpretive Data Percent cell count reference ranges are not reported, since discordance with absolute values may lead to misinterpretation of CBC data. Current Interpretive Data was last revised on 2017. Monocyte pct 9.9 % [facility] Comment: Interpretive Data Percent cell count reference ranges are not reported, since discordance with absolute values may lead to misinterpretation of CBC data. Current Interpretive Data was last revised on 2017. Eosinophil pct 2.1 % [facility] Comment: Interpretive Data Percent cell count reference ranges are not reported, since discordance with absolute values may lead to misinterpretation of CBC data. Current Interpretive Data was last revised on 2017. Basophil pct 0.8 % [facility] Comment: Interpretive Data Percent cell count reference ranges are not reported, since discordance with absolute values may lead to misinterpretation of CBC data. Current Interpretive Data was last revised on 2017. Blood 08/13/2024 9:43 AM PERCUSSION WELDING MACHINE OPERATOR 08/13/2024 9:43 AM PERCUSSION WELDING MACHINE OPERATOR Jose Chairez MD PhD LAB BLOOD ORDERABLES Final Result Performing Organization Address City/[facility] Co de Phone Number [facility] Department [place] [address] * Thyroid Function [place] (08/13/2024 9:43 AM PERCUSSION WELDING MACHINE OPERATOR) Pathologist [facility] TSH 2.15 0.30 - 4.20 mcIUnit/mL Blood 08/13/2024 9:43 AM PERCUSSION WELDING MACHINE OPERATOR 08/13/2024 10:39 AM PERCUSSION WELDING MACHINE OPERATOR Jose Chairez MD PhD LAB BLOOD ORDERABLES Final Result Performing Organization Address [facility] de Phone Number [facility] [place] [address] * CBC with auto differential (08/13/2024 9:43 AM PERCUSSION WELDING MACHINE OPERATOR) Pathologist [facility] WBC 9.0 3.8 - 9.9 K/cumm Comment:Testing performed by : [address] [address] Hgb 13.9 11.9 - 15.5 g/dL [facility] Comment:Testing performed by : [address] [address] Hct 40.5 35.6 - 45.5 % [facility] Comment:Testing performed by : [address] [address] Plt 232 150 - 400 K/cumm [facility] Comment:Testing performed by : [address] [address] MPV 9.4 9.1 - 12.3 fL [facility] RBC 4.75 3.90 - 5.20 M/cumm [facility] MCV 85.3 81.3 - 96.4 fL [facility] MCH 29.3 27.1 - 33.3 pg [facility] MCHC 34.3 32.3 - 35.7 g/dL [facility] RDW CV 12.8 11.1 - 14.9 % [facility] RDW SD 40.2 35.7 - 48.1 fL [facility] NRBC abs 0.00 0.00 - 0.01 K/cumm [facility] Blood 08/13/2024 9:43 AM PERCUSSION WELDING MACHINE OPERATOR 08/13/2024 9:43 AM PERCUSSION WELDING MACHINE OPERATOR Jose Chairez MD PhD LAB BLOOD ORDERABLES Final Result Performing Organization Address City/[facility] Co de Phone Number [facility] [place] [address] * Lactate dehydrogenase (LD) (08/13/2024 9:43 AM PERCUSSION WELDING MACHINE OPERATOR) [facility] Lactate dehydrogenase (LDH) 186 100 - 250 Units/L Comment:Testing performed by : [address] [address] Blood 08/13/2024 9:43 AM PERCUSSION WELDING MACHINE OPERATOR 08/13/2024 9:43 AM PERCUSSION WELDING MACHINE OPERATOR Jose Chairez MD PhD LAB BLOOD ORDERABLES Final Result Performing Organization Address [facility] de Phone Number [facility] Department [place] [address] * Comprehensive metabolic panel (08/13/2024 9:43 AM PERCUSSION WELDING MACHINE OPERATOR) [facility] Sodium 142 135 - 145 mmol/L Comment:Testing performed by : [address] [address] Potassium, pl 3.5 3.3 - 4.9 mmol/L [facility] Chloride 103 97 - 110 mmol/L [facility] CO2 30 22 - 32 mmol/L [facility] Anion gap 9 2 - 15 mmol/L [facility] BUN 16 6 - 25 mg/dL [facility] Creatinine 0.65 0.60 - 1.10 mg/dL [facility] Glucose 94 70 - 199 mg/dL [facility] Comment: Interpretive Data Fasting glucose >/= 126 [...] 2022. Calcium 10.1 8.5 - 10.3 mg/dL [facility] Bilirubin, total 0.5 0.1 - 1.2 mg/dL [facility] Protein, pl 7.8 6.5 - 8.5 g/dL [facility] Albumin 4.6 3.5 - 5.0 g/dL [facility] Alk phos 54 40 - 130 Units/L [facility] ALT 16 7 - 45 Units/L [facility] AST 22 10 - 45 Units/L [facility] Blood 08/13/2024 9:43 AM PERCUSSION WELDING MACHINE OPERATOR 08/13/2024 9:43 AM PERCUSSION WELDING MACHINE OPERATOR Jose Chairez MD PhD LAB BLOOD ORDERABLES Final Result Performing Organization Address City/State/[facility] Co de Phone Number [facility] Department [place] [address] * eGFR (07/23/2024 7:49 AM PERCUSSION WELDING MACHINE OPERATOR) eGFR >90 >=60 mL/min/1. 73 m2 Comment: [...] last reviewed 2021. Blood 07/23/2024 7:49 AM PERCUSSION WELDING MACHINE OPERATOR 07/23/2024 7:49 AM PERCUSSION WELDING MACHINE OPERATOR us Daryl Glasgow NP LAB BLOOD ORDERABLES Valencia valadez Result [facility] Department [place] [address] * Differential, auto (07/23/2024 7:49 AM PERCUSSION WELDING MACHINE OPERATOR) Neutrophil abs 4.0 1.5 - 6.5 K/cumm Comment:Testing performed by : [facility], [address] [place] [id number] Imm gran abs 0.0 0.0 - 0.1 K/cumm [facility] Lymphocyte abs 2.5 0.8 - 3.3 K/cumm [facility] Monocyte abs 0.6 0.2 - 0.8 K/cumm [facility] Eosinophil abs 0.3 0.0 - 0.5 K/cumm [facility] Basophil abs 0.1 0.0 - 0.1 K/cumm [facility] Neutrophil pct 53.7 % [facility] Comment: Interpretive Data Percent cell count reference ranges are not reported, since discordance with absolute values may lead to misinterpretation of CBC data. Current Interpretive Data was last revised on 2017. Imm gran pct 0.4 % [facility] Comment: Interpretive Data Percent cell count reference ranges are not reported, since discordance with absolute values may lead to misinterpretation of CBC data. Current Interpretive Data was last revised on 2017. Lymphocyte pct 33.4 % [facility] Comment: Interpretive Data Percent cell count reference ranges are not reported, since discordance with absolute values may lead to misinterpretation of CBC data. Current Interpretive Data was last revised on 2017. Monocyte pct 8.3 % [facility] Comment: Interpretive Data Percent cell count reference ranges are not reported, since discordance with absolute values may lead to misinterpretation of CBC data. Current Interpretive Data was last revised on 2017. Eosinophil pct 3.4 % [facility] Comment: Interpretive Data Percent cell count reference ranges are not reported, since discordance with absolute values may lead to misinterpretation of CBC data. Current Interpretive Data was last revised on 2017. Basophil pct 0.8 % [facility] Comment: Interpretive Data Percent cell count reference ranges are not reported, since discordance with absolute values may lead to misinterpretation of CBC data. Current Interpretive Data was last revised on 2017. Blood 07/23/2024 7:49 AM PERCUSSION WELDING MACHINE OPERATOR 07/23/2024 7:49 AM PERCUSSION WELDING MACHINE OPERATOR Daryl Glasgow SUPERVISOR [employer] LAB BLOOD ORDERABLES Valencia l Result [facility] Department [place] [address] * Thyroid Function [place] (07/23/2024 7:49 AM PERCUSSION WELDING MACHINE OPERATOR) TSH 2.26 0.30 - 4.20 mcIUnit/mL Blood 07/23/2024 7:49 AM PERCUSSION WELDING MACHINE OPERATOR 07/23/2024 8:48 AM PERCUSSION WELDING MACHINE OPERATOR Daryl Glasgow SUPERVISOR [employer] LAB BLOOD ORDERABLES Valencia l Result Performing Organization Address City/[facility]/ZIP Co de Phone Number [facility] Department [place] [address] * CBC with auto differential (07/23/2024 7:49 AM PERCUSSION WELDING MACHINE OPERATOR) [facility] WBC 7.4 3.8 - 9.9 K/cumm Comment:Testing performed by : [address] [address] Hgb 13.7 11.9 - 15.5 g/dL [facility] Comment:Testing performed by : [address] [address] Hct 40.4 35.6 - 45.5 % [facility] Comment:Testing performed by : [address] [address] Plt 220 150 - 400 K/cumm [facility] Comment:Testing performed by : [address] [address] MPV 9.3 9.1 - 12.3 fL [facility] RBC 4.67 3.90 - 5.20 M/cumm [facility] MCV 86.5 81.3 - 96.4 fL [facility] MCH 29.3 27.1 - 33.3 pg [facility] MCHC 33.9 32.3 - 35.7 g/dL [facility] RDW CV 13.2 11.1 - 14.9 % [facility] RDW SD 41.2 35.7 - 48.1 fL [facility] NRBC abs 0.00 0.00 - 0.01 K/cumm [facility] Blood 07/23/2024 7:49 AM PERCUSSION WELDING MACHINE OPERATOR 07/23/2024 7:49 AM PERCUSSION WELDING MACHINE OPERATOR Daryl Glasgow SUPERVISOR [employer] LAB BLOOD ORDERABLES Valencia l Result Performing Organization Address City/[facility]/ZIP Co de Phone Number [facility] Department [place] [address] * (ABNORMAL) Manual Differential (07/23/2024 7:49 AM PERCUSSION WELDING MACHINE OPERATOR) [facility] Differential Auto RBC morphology Present(A) [facility] Anisocytosis Slight(A) [facility] Platelet estimate Adequate [facility] Blood 07/23/2024 7:49 AM PERCUSSION WELDING MACHINE OPERATOR 07/23/2024 7:49 AM PERCUSSION WELDING MACHINE OPERATOR Daryl Glasgow SUPERVISOR [employer] LAB BLOOD ORDERABLES Valencia l Result Performing Organization Address [facility] Co de Phone Number [facility] [place] [address] * Lactate dehydrogenase (LD) (07/23/2024 7:49 AM PERCUSSION WELDING MACHINE OPERATOR) [facility] Lactate dehydrogenase (LDH) 213 100 - 250 Units/L Comment:Testing performed by : [address] [address] Blood 07/23/2024 7:4 9 AM PERCUSSION WELDING MACHINE OPERATOR 07/23/2024 7:49 AM PERCUSSION WELDING MACHINE OPERATOR Daryl Glasgow NP LAB BLOOD ORDERABLES Valencia l Result Performing Organization Address [facility] Co de Phone Number [facility] [place] [address] * (ABNORMAL) Comprehensive metabolic panel (07/23/2024 7:49 AM PERCUSSION WELDING MACHINE OPERATOR) [facility] Sodium 142 135 - 145 mmol/L Comment:Testing performed by : [address] [address] Potassium, pl 3.6 3.3 - 4.9 mmol/L [facility] Chloride 104 97 - 110 mmol/L [facility] CO2 28 22 - 32 mmol/L [facility] Anion gap 10 2 - 15 mmol/L [facility] BUN 14 6 - 25 mg/dL [facility] Creatinine 0.58(L) 0.60 - 1.10 mg/dL [facility] Glucose 97 70 - 199 mg/dL [facility] Comment: Interpretive Data Fasting glucose >/= 126 [...] 2022. Calcium 9.7 8.5 - 10.3 mg/dL [facility] Bilirubin, total 0.5 0.1 - 1.2 mg/dL [facility] Protein, pl 7.5 6.5 - 8.5 g/dL [facility] Albumin 4.4 3.5 - 5.0 g/dL [facility] Alk phos 54 40 - 130 Units/L [facility] ALT 18 7 - 45 Units/L [facility] AST 22 10 - 45 Units/L [facility] Blood 07/23/2024 7:49 AM PERCUSSION WELDING MACHINE OPERATOR 07/23/2024 7:49 AM PERCUSSION WELDING MACHINE OPERATOR Daryl Glasgow NP LAB BLOOD ORDERABLES Valencia valadez Result [facility] Department [place] [address] * eGFR (07/02/2024 7:59 AM CDT) eGFR [...] CDT 07/02/2024 7:59 AM CDT Daryl Glasgow SUPERVISOR [employer] LAB BLOOD ORDERABLES Valencia valadez Result [facility] Department [place] [address] * Differential, auto (07/02/2024 7:59 AM CDT) [facility] Neutrophil abs 6.3 1.5 - 6.5 K/cumm Comment:Testing performed by : [facility], [address] [place] [id number] Imm gran abs 0.0 0.0 - 0.1 K/cumm [facility] Lymphocyte abs 2.4 0.8 - 3.3 K/cumm [facility] Monocyte abs 0.8 0.2 - 0.8 K/cumm [facility] Eosinophil abs 0.3 0.0 - 0.5 K/cumm [facility] Basophil abs 0.1 0.0 - 0.1 K/cumm [facility] Neutrophil pct 63.6 % [facility] Comment: Interpretive Data Percent cell count reference ranges are not reported, since discordance with absolute values may lead to misinterpretation of CBC data. Current Interpretive Data was last revised on 2017. Imm gran pct 0.3 % [facility] Comment: Interpretive Data Percent cell count reference ranges are not reported, since discordance with absolute values may lead to misinterpretation of CBC data. Current Interpretive Data was last revised on 2017. Lymphocyte pct 24.5 % [facility] Comment: Interpretive Data Percent cell count reference ranges are not reported, since discordance with absolute values may lead to misinterpretation of CBC data. Current Interpretive Data was last revised on 2017. Monocyte pct 7.8 % [facility] Comment: Interpretive Data Percent cell count reference ranges are not reported, since discordance with absolute values may lead to misinterpretation of CBC data. Current Interpretive Data was last revised on 2017. Eosinophil pct 3.0 % [facility] Comment: Interpretive Data Percent cell count reference ranges are not reported, since discordance with absolute values may lead to misinterpretation of CBC data. Current Interpretive Data was last revised on 2017. Basophil pct 0.8 % [facility] Comment: Interpretive Data Percent cell count reference ranges are not reported, since discordance with absolute values may lead to misinterpretation of CBC data. Current Interpretive Data was last revised on 2017. Blood 07/02/2024 7:59 AM CDT 07/02/2024 7:59 AM CDT Daryl Glasgow NP LAB BLOOD ORDERABLES Valencia l Result [facility] Department [place] [address] * Thyroid Function [place] (07/02/2024 7:59 AM CDT) TSH 1.75 0.30 - 4.20 mcIUnit/mL Blood 07/02/2024 7:59 AM CDT 07/02/2024 9:14 AM CDT Daryl Glasgow NP LAB BLOOD ORDERABLES Valencia l Result [facility] Department [place] [address] * CBC with auto differential (07/02/2024 7:59 AM CDT) [facility] WBC 9.9 3.8 - 9.9 K/cumm Comment:Testing performed by : [address] [address] Hgb 13.7 11.9 - 15.5 g/dL [facility] Comment:Testing performed by : [address] [address] Hct 40.9 35.6 - 45.5 % [facility] Comment:Testing performed by : [address] [address] Plt 233 150 - 400 K/cumm [facility] Comment:Testing performed by : [address] [address] MPV 9.1 9.1 - 12.3 fL [facility] RBC 4.73 3.90 - 5.20 M/cumm [facility] MCV 86.5 81.3 - 96.4 fL [facility] MCH 29.0 27.1 - 33.3 pg [facility] MCHC 33.5 32.3 - 35.7 g/dL [facility] RDW CV 12.9 11.1 - 14.9 % [facility] RDW SD 40.8 35.7 - 48.1 fL [facility] NRBC abs 0.00 0.00 - 0.01 K/cumm [facility] Blood 07/02/2024 7:59 AM CDT 07/02/2024 7:59 AM CDT Daryl Glasgow NP LAB BLOOD ORDERABLES Valencia l Result [facility] Department [place] [address] * Lactate dehydrogenase (LD) (07/02/2024 7:59 AM CDT) Lactate dehydrogenase (LDH) 194 100 - 250 Units/L Comment:Testing performed by : [facility], [address] [place] [id number] Blood 07/02/2024 7:59 AM CDT 07/02/2024 7:59 AM CDT Daryl Glasgow NP LAB BLOOD ORDERABLES Valencia l Result [facility] Department [place] [address] * Comprehensive metabolic panel (07/02/2024 7:59 AM CDT) Pathologist [facility] Sodium 139 135 - 145 mmol/L Comment:Testing performed by : [facility], [address] [place] [id number] Potassium, pl 3.6 3.3 - 4.9 mmol/L [facility] Chloride 103 97 - 110 mmol/L [facility] CO2 27 22 - 32 mmol/L [facility] Anion gap 9 2 - 15 mmol/L [facility] BUN 18 6 - 25 mg/dL [facility] Creatinine 0.69 0.60 - 1.10 mg/dL [facility] Glucose 90 70 - 199 mg/dL [facility] Comment: Interpretive Data Fasting glucose >/= 126 [...] 2022. Calcium 10.2 8.5 - 10.3 mg/dL [facility] Bilirubin, total 0.5 0.1 - 1.2 mg/dL [facility] Protein, pl 7.7 6.5 - 8.5 g/dL [facility] Albumin 4.7 3.5 - 5.0 g/dL [facility] Alk phos 50 40 - 130 Units/L [facility] ALT 17 7 - 45 Units/L [facility] AST 22 10 - 45 Units/L [facility] Blood 07/02/2024 7:59 AM CDT 07/02/2024 7:59 AM CDT us Daryl Glasgow NP LAB BLOOD ORDERABLES Valencia valadez Result [facility] Department [place] [address] from Last 3 Months Insurance MEDICARE [employer] SENIOR SUPPLEMENT MEDICARE [employer] SENIOR SUPPLEMENT Advance Directives For more information, please contact: [phone] Documents on File Type Date Recorded Patient Skiver Heel Tap Expl anation ADVANCE DIRECTIVE 10/11/2023 6:33 AM Susynatividad g Will * Full Code (Latest Code Status on File) Date Activated Date Inactivated Comments 11/29/2023 8:25 AM 11/30/2023 4:59 AM * Full Code Date Activated Date Inactivated Comments 11/23/2023 11:32 AM 11/24/2023 4:58 AM * Full Code Date Activated Date Inactivated Comments 11/10/2023 8:24 AM 11/11/2023 5:02 AM * Full Code Date Activated Date Inactivated Comments 10/11/2023 10:59 AM 10/12/2023 4:16 PM Care Teams Binder Technician Relationship Specialty Start Date End Date Becky Conroy NP [address] [place] [address] PCP - General Nurse Practitioner 07/06/23 Jose Chairez MD PhD [id number] [facility] [address] [place] [address] Medical Oncologist/Trailer Assembler Medical Oncology 08/14/23 Evelin Lofton MD [address] [place] [address] Referring Physician Cardiovascular Disease 08/14/23
--- OUTSIDE RECORDS SUMMARY | 2024-09-17 04:20 | XMS_ITS | Referral Summary ---
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); Melanoma of axilla (HCC) 08/27/2024 12:30 PM BALL POINTS INSPECTOR Lab [facility] [address] [place] [address] Malignant melanoma of unknown origin (HCC) 08/26/2024 9:07 AM BALL POINTS INSPECTOR - 08/26/2024 11:59 PM BALL POINTS INSPECTOR Hospital Encounter [facility] [address] [place] [address] Discharge Disposition: Discharge to home or self care 08/26/2024 9:06 AM BALL POINTS INSPECTOR - 08/26/2024 11:59 PM BALL POINTS INSPECTOR Hospital Encounter [facility] [address] [place] [address] Malignant melanoma of unknown origin (HCC) Discharge Disposition: Discharge to home or self care 08/21/2024 Orders Only [facility] [address] [place] [phone] Jose Chiarez MD PhD 08/13/2024 12:00 PM BALL POINTS INSPECTOR Infusion [address] [phone] Malignant melanoma of unknown origin (HCC) (Primary Dx) 08/13/2024 10:30 AM BALL POINTS INSPECTOR Lab [address] [address] Malignant melanoma of unknown origin (HCC) 08/13/2024 11:00 AM BALL POINTS INSPECTOR Office Visit [facility] [address] [place] [phone] Jose Chairez MD PhD Malignant melanoma of unknown origin (HCC) 07/23/2024 9:15 AM BALL POINTS INSPECTOR Infusion [address] [address] Malignant melanoma of unknown origin (HCC) (Primary Dx) 07/23/2024 7:45 AM BALL POINTS INSPECTOR Lab [address] [address] Malignant melanoma of unknown origin (HCC) 07/23/2024 8:15 AM BALL POINTS INSPECTOR Office Visit [facility] [address] [place] [phone] Jose Chairez MD PhD Malignant melanoma of unknown origin (HCC) (Primary Dx) 07/10/2024 Telephone [facility] [address] [place] [phone] Asya Giles, MARGAUX 07/02/2024 10:00 AM CDT Infusion [address] [address] Malignant melanoma of unknown origin (HCC) (Primary Dx) 07/02/2024 8:15 AM CDT Lab [address] [address] Malignant melanoma of unknown origin (HCC) 07/02/2024 9:00 AM CDT Office Visit [facility] [address] [place] [address] Jose Chairez MD PhD Malignant melanoma of unknown origin (HCC) (Primary Dx) from Last 3 Months Allergies No known active allergies Medications clopidogreL [...] osteoarthritis of both knees 09/28/2016 Atherosclerosis of [place] co ronary artery of [place] heart without angina pectoris 03/04/2016 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 Overview (07/18/2023): March 2003 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 Immunizations Name Administration Dates Next Due Influenza, Quad, Adjuvantated, Intramuscular 07/2023,06/22/2021 Influenza, Quadrivalent, Split, Intramuscular Pneumococcal Polysaccharide PPV23 03/11/2018 ZOSTER LIVE 07/04/2015 ZOSTER Recombinant 02/02/2023,10/04/2022 Social History Tobacco Use Types Packs/Day Years [...] on file Legal Sex Female 1:54 AM BALL POINTS INSPECTOR Gender Identity Not on file Sexual Orientation Not on file Last Filed Vital Signs Vital Sign Reading Time Taken Comments Blood Pressure 156/75 08/27/2024 12:54 PM BALL POINTS INSPECTOR Pulse 70 08/27/2024 12:54 PM BALL POINTS INSPECTOR Temperature 36.5 ??C (97.7 ??F) 08/27/2024 12:[address] Respiratory Rate 16 08/27/2024 12:54 PM BALL POINTS INSPECTOR Oxygen Saturation 95% 08/27/2024 12:54 PM BALL POINTS INSPECTOR Inhaled Oxygen Concentration - - Weight 67.3 kg (148 lb 6.4 oz) 08/27/2024 12:54 PM BALL POINTS INSPECTOR Height 165.1 cm (5' 5 ) 11/29/2023 8:23 AM CDT Body Mass Index 24.7 11/29/2023 8:23 AM CDT Plan of Treatment Not on file Medical Devices Implanted Type Area News Department Intern Device Identifier Shelf Expiration Date Model / Serial / Lot Cardiac Stent X 1 N/A: Heart Procedures Procedure Name Priority Date/Time Associated Diagnosis Comments EGFR Routine 08/27/2024 11:39 AM BALL POINTS INSPECTOR Malignant melanoma of unknown origin (HCC) DIFFERENTIAL AUTO Routine 08/27/2024 11: 39 AM BALL POINTS INSPECTOR Malignant melanoma of unknown origin (HCC) CBC WITH AUTO DIFFERENTIAL Routine 08/27/2024 11:39 AM BALL POINTS INSPECTOR Malignant melanoma of unknown origin (HCC) COMPREHENSIVE METABOLIC PANEL Routine 08/27/2024 11:39 AM BALL POINTS INSPECTOR Malignant melanoma of unknown origin (HCC) THYROID FUNCTION CASCADE Routine 08/27/2024 11:39 AM BALL POINTS INSPECTOR Malignant melanoma of unknown origin (HCC) LACTATE DEHYDROGENASE Routine 08/27/2024 11:39 AM BALL POINTS INSPECTOR Malignant melanoma of unknown origin (HCC) PET/CT FDG SKULL TO THIGH Schedule Routine, Read Routine (OP Routine) 08/26/2024 11:07 AM BALL POINTS INSPECTOR Malignant melanoma of unknown origin (HCC) EGFR STAT 08/13/2024 9:43 AM BALL POINTS INSPECTOR Malignant melanoma of unknown origin (HCC) DIFFERENTIAL AUTO Routine 08/13/2024 9:4 3 AM BALL POINTS INSPECTOR Malignant melanoma of unknown origin (HCC) THYROID FUNCTION CASCADE Routine 08/13/2024 9:43 AM BALL POINTS INSPECTOR Malignant melanoma of unknown origin (HCC) LACTATE DEHYDROGENASE Routine 08/13/2024 9:43 AM BALL POINTS INSPECTOR Malignant melanoma of unknown origin (HCC) CBC WITH AUTO DIFFERENTIAL Routine 08/13/2024 9:43 AM BALL POINTS INSPECTOR Malignant melanoma of unknown origin (HCC) COMPREHENSIVE METABOLIC PANEL STAT 08/13/2024 9:43 AM BALL POINTS INSPECTOR Malignant melanoma of unknown origin (HCC) MANUAL DIFFERENTIAL Routine 07/23/2024 7 :49 AM BALL POINTS INSPECTOR Malignant melanoma of unknown origin (HCC) EGFR STAT 07/23/2024 7:49 AM BALL POINTS INSPECTOR Malignant melanoma of unknown origin (HCC) DIFFERENTIAL AUTO Routine 07/23/2024 7:4 9 AM BALL POINTS INSPECTOR Malignant melanoma of unknown origin (HCC) THYROID FUNCTION CASCADE Routine 07/23/2024 7:49 AM BALL POINTS INSPECTOR Malignant melanoma of unknown origin (HCC) LACTATE DEHYDROGENASE Routine 07/23/2024 7:49 AM BALL POINTS INSPECTOR Malignant melanoma of unknown origin (HCC) CBC WITH AUTO DIFFERENTIAL Routine 07/23/2024 7:49 AM BALL POINTS INSPECTOR Malignant melanoma of unknown origin (HCC) COMPREHENSIVE METABOLIC PANEL STAT 07/23/2024 7:49 AM BALL POINTS INSPECTOR Malignant melanoma of unknown origin (HCC) EGFR [...] Months Results * eGFR (08/27/2024 11:39 AM BALL POINTS INSPECTOR) eGFR 88 >=60 mL/min/1. 73 m2 Comment: [...] reviewed 2021. Blood 08/27/2024 11:3 9 AM BALL POINTS INSPECTOR 08/27/2024 11:52 AM BALL POINTS INSPECTOR us Jose Chairez MD PhD LAB BLOOD ORDERABLES Final Result [facility] Department [place] [address] * Differential, auto (08/27/2024 11:39 AM BALL POINTS INSPECTOR) Neutrophil abs 4.9 1.5 - 6.5 K/cumm Comment:Testing performed by : [facility], [address] [place] [address] Imm gran abs 0.0 0.0 - 0.1 K/cumm [facility] Lymphocyte abs 2.4 0.8 - 3.3 K/cumm [facility] Monocyte abs 0.6 0.2 - 0.8 K/cumm [facility] Eosinophil abs 0.2 0.0 - 0.5 K/cumm [facility] Basophil abs 0.1 0.0 - 0.1 K/cumm [facility] Neutrophil pct 59.9 % [facility] Comment: Interpretive Data Percent cell count reference ranges are not reported, since discordance with absolute values may lead to misinterpretation of CBC data. Current Interpretive Data was last revised on 2017. Imm gran pct 0.4 % [facility] Comment: Interpretive Data Percent cell count reference ranges are not reported, since discordance with absolute values may lead to misinterpretation of CBC data. Current Interpretive Data was last revised on 2017. Lymphocyte pct 29.3 % [facility] Comment: Interpretive Data Percent cell count reference ranges are not reported, since discordance with absolute values may lead to misinterpretation of CBC data. Current Interpretive Data was last revised on 2017. Monocyte pct 7.6 % [facility] Comment: Interpretive Data Percent cell count reference ranges are not reported, since discordance with absolute values may lead to misinterpretation of CBC data. Current Interpretive Data was last revised on 2017. Eosinophil pct 2.1 % [facility] Comment: Interpretive Data Percent cell count reference ranges are not reported, since discordance with absolute values may lead to misinterpretation of CBC data. Current Interpretive Data was last revised on 2017. Basophil pct 0.7 % [facility] Comment: Interpretive Data Percent cell count reference ranges are not reported, since discordance with absolute values may lead to misinterpretation of CBC data. Current Interpretive Data was last revised on 2017. Blood 08/27/2024 11:3 9 AM BALL POINTS INSPECTOR 08/27/2024 11:39 AM BALL POINTS INSPECTOR Jose Chairez MD PhD LAB BLOOD ORDERABLES Final Result Performing Organization Address City/[facility]/ZIP Co de Phone Number [facility] Department [place] [address] * Thyroid Function Clarke (08/27/2024 11:39 AM BALL POINTS INSPECTOR) TSH 1.84 0.30 - 4.20 mcIUnit/mL Blood 08/27/2024 11:3 9 AM BALL POINTS INSPECTOR 08/27/2024 1:17 PM BALL POINTS INSPECTOR us Jose Chairez MD PhD LAB BLOOD ORDERABLES Final Result [facility] Department [place] [address] * CBC with auto differential (08/27/2024 11:39 AM BALL POINTS INSPECTOR) WBC 8.1 3.8 - 9.9 K/cumm Comment:Testing performed by : [facility] [address] Hgb 13.2 11.9 - 15.5 g/dL [facility] Comment:Testing performed by : [address] [address] Hct 38.9 35.6 - 45.5 % [facility] Comment:Testing performed by : [address] [address] Plt 247 150 - 400 K/cumm [facility] Comment:Testing performed by : [address] [address] MPV 9.2 9.1 - 12.3 fL [facility] RBC 4.57 3.90 - 5.20 M/cumm [facility] MCV 85.1 81.3 - 96.4 fL [facility] MCH 28.9 27.1 - 33.3 pg [facility] MCHC 33.9 32.3 - 35.7 g/dL [facility] RDW CV 12.9 11.1 - 14.9 % [facility] RDW SD 39.9 35.7 - 48.1 fL [facility] NRBC abs 0.00 0.00 - 0.01 K/cumm [facility] Blood 08/27/2024 11:3 9 AM BALL POINTS INSPECTOR 08/27/2024 11:39 AM BALL POINTS INSPECTOR us Jose Chairez MD PhD LAB BLOOD ORDERABLES Final Result [facility] Department [place] [address] * Lactate dehydrogenase (LD) (08/27/2024 11:39 AM BALL POINTS INSPECTOR) Lactate dehydrogenase (LDH) 222 100 - 250 Units/L Comment:Testing performed by : [address] [address] Blood 08/27/2024 11:3 9 AM BALL POINTS INSPECTOR 08/27/2024 11:39 AM BALL POINTS INSPECTOR us Jose Chairez MD PhD LAB BLOOD ORDERABLES Final Result [facility] Department [place] [address] * Comprehensive metabolic panel (08/27/2024 11:39 AM BALL POINTS INSPECTOR) Sodium 140 135 - 145 mmol/L Comment:Testing performed by : [facility], [address] [place] [address] Potassium, pl 3.3 3.3 - 4.9 mmol/L [facility] Chloride 104 97 - 110 mmol/L [facility] CO2 25 22 - 32 mmol/L [facility] Anion gap 11 2 - 15 mmol/L [facility] BUN 14 6 - 25 mg/dL [facility] Creatinine 0.66 0.60 - 1.10 mg/dL [facility] Glucose 102 70 - 199 mg/dL [facility] Comment: Interpretive Data Fasting glucose >/= 126 [...] 2022. Calcium 10.1 8.5 - 10.3 mg/dL [facility] Bilirubin, total 0.4 0.1 - 1.2 mg/dL [facility] Protein, pl 7.3 6.5 - 8.5 g/dL [facility] Albumin 4.4 3.5 - 5.0 g/dL [facility] Alk phos 49 40 - 130 Units/L [facility] ALT 17 7 - 45 Units/L [facility] AST 23 10 - 45 Units/L [facility] Blood 08/27/2024 11:3 9 AM BALL POINTS INSPECTOR 08/27/2024 11:39 AM BALL POINTS INSPECTOR Jose Chairez MD PhD LAB BLOOD ORDERABLES Final Result [facility] Department [place] [address] * PET/CT FDG Skull to Thigh (08/26/2024 11:07 AM BALL POINTS INSPECTOR) Anatomical Region Laterality Modality N/A Positron Emissio n Tomography (PET) 08/26/2024 1:51 PM BALL POINTS INSPECTOR Impressions 08/26/2024 2:15 PM BALL POINTS INSPECTOR 1. ??No PET/CT evidence of residual/recurrent or [...] Gavin Patel M.D. Narrative 08/26/2024 2:15 PM BALL POINTS INSPECTOR EXAMINATION: TUMOR FDG-PET/CT IMAGING DATE OF STUDY: [...] obtained. ??The study was interpreted on the [employer] workstation. ??The mean liver SUV (reported for machined parts quality inspector purposes) is 2.7. ?? The total scanned [...] obtained. The study was interpreted on the [employer] workstation. The mean liver SUV (reported for machined parts quality inspector purposes) is 2.7. The total scanned area [...] by: Gavin Patel M.D. Daryl Glasgow NP IMG PET PROCEDURES Final Result * eGFR (08/13/2024 9:43 AM BALL POINTS INSPECTOR) eGFR 88 >=60 mL/min/1. 73 m2 Comment: [...] last reviewed 2021. Blood 08/13/2024 9:43 AM BALL POINTS INSPECTOR 08/13/2024 9:43 AM BALL POINTS INSPECTOR Jose Chairez MD PhD LAB BLOOD ORDERABLES Final Result [facility] Department [place] [address] * (ABNORMAL) Differential, auto (08/13/2024 9:43 AM BALL POINTS INSPECTOR) Neutrophil abs 5.3 1.5 - 6.5 K/cumm Comment:Testing performed by : [facility], [address] [place] [address] Imm gran abs 0.0 0.0 - 0.1 K/cumm [facility] Lymphocyte abs 2.6 0.8 - 3.3 K/cumm [facility] Monocyte abs 0.9(H) 0.2 - 0.8 K/cumm [facility] Eosinophil abs 0.2 0.0 - 0.5 K/cumm [facility] Basophil abs 0.1 0.0 - 0.1 K/cumm [facility] Neutrophil pct 58.4 % [facility] Comment: Interpretive Data Percent cell count reference ranges are not reported, since discordance with absolute values may lead to misinterpretation of CBC data. Current Interpretive Data was last revised on 2017. Imm gran pct 0.3 % [facility] Comment: Interpretive Data Percent cell count reference ranges are not reported, since discordance with absolute values may lead to misinterpretation of CBC data. Current Interpretive Data was last revised on 2017. Lymphocyte pct 28.5 % [facility] Comment: Interpretive Data Percent cell count reference ranges are not reported, since discordance with absolute values may lead to misinterpretation of CBC data. Current Interpretive Data was last revised on 2017. Monocyte pct 9.9 % [facility] Comment: Interpretive Data Percent cell count reference ranges are not reported, since discordance with absolute values may lead to misinterpretation of CBC data. Current Interpretive Data was last revised on 2017. Eosinophil pct 2.1 % [facility] Comment: Interpretive Data Percent cell count reference ranges are not reported, since discordance with absolute values may lead to misinterpretation of CBC data. Current Interpretive Data was last revised on 2017. Basophil pct 0.8 % [facility] Comment: Interpretive Data Percent cell count reference ranges are not reported, since discordance with absolute values may lead to misinterpretation of CBC data. Current Interpretive Data was last revised on 2017. Blood 08/13/2024 9:43 AM BALL POINTS INSPECTOR 08/13/2024 9:43 AM BALL POINTS INSPECTOR Jose Chairez MD PhD LAB BLOOD ORDERABLES Final Result Performing Organization Address City/[facility]/ZIP Co de Phone Number [facility] Department [place] [address] * Thyroid Function Clarke (08/13/2024 9:43 AM BALL POINTS INSPECTOR) TSH 2.15 0.30 - 4.20 mcIUnit/mL Blood 08/13/2024 9:43 AM BALL POINTS INSPECTOR 08/13/2024 10:39 AM BALL POINTS INSPECTOR Jose Chairez MD PhD LAB BLOOD ORDERABLES Final Result Performing Organization Address City/[facility]/ZIP Co de Phone Number [facility] Department [place] [address] * CBC with auto differential (08/13/2024 9:43 AM BALL POINTS INSPECTOR) WBC 9.0 3.8 - 9.9 K/cumm Comment:Testing performed by : [address] [address] Hgb 13.9 11.9 - 15.5 g/dL [facility] Comment:Testing performed by : [address] [address] Hct 40.5 35.6 - 45.5 % [facility] Comment:Testing performed by : [facility], [address] [place] [address] Plt 232 150 - 400 K/cumm [facility] Comment:Testing performed by : [facility], [address] [place] [address] MPV 9.4 9.1 - 12.3 fL [facility] RBC 4.75 3.90 - 5.20 M/cumm [facility] MCV 85.3 81.3 - 96.4 fL [facility] MCH 29.3 27.1 - 33.3 pg [facility] MCHC 34.3 32.3 - 35.7 g/dL [facility] RDW CV 12.8 11.1 - 14.9 % [facility] RDW SD 40.2 35.7 - 48.1 fL [facility] NRBC abs 0.00 0.00 - 0.01 K/cumm [facility] Blood 08/13/2024 9:43 AM BALL POINTS INSPECTOR 08/13/2024 9:43 AM BALL POINTS INSPECTOR us Jose Chairez MD PhD LAB BLOOD ORDERABLES Final Result [facility] Department [place] [address] * Lactate dehydrogenase (LD) (08/13/2024 9:43 AM BALL POINTS INSPECTOR) Lactate dehydrogenase (LDH) 186 100 - 250 Units/L Comment:Testing performed by : [facility], [address] [place] [address] Blood 08/13/2024 9:43 AM BALL POINTS INSPECTOR 08/13/2024 9:43 AM BALL POINTS INSPECTOR us Jose Chairez MD PhD LAB BLOOD ORDERABLES Final Result [facility] Department [place] [address] * Comprehensive metabolic panel (08/13/2024 9:43 AM BALL POINTS INSPECTOR) Sodium 142 135 - 145 mmol/L Comment:Testing performed by : [facility], [address] [place] [address] Potassium, pl 3.5 3.3 - 4.9 mmol/L [facility] Chloride 103 97 - 110 mmol/L [facility] CO2 30 22 - 32 mmol/L [facility] Anion gap 9 2 - 15 mmol/L [facility] BUN 16 6 - 25 mg/dL [facility] Creatinine 0.65 0.60 - 1.10 mg/dL [facility] Glucose 94 70 - 199 mg/dL [facility] Comment: Interpretive Data Fasting glucose >/= 126 [...] 2022. Calcium 10.1 8.5 - 10.3 mg/dL [facility] Bilirubin, total 0.5 0.1 - 1.2 mg/dL [facility] Protein, pl 7.8 6.5 - 8.5 g/dL [facility] Albumin 4.6 3.5 - 5.0 g/dL [facility] Alk phos 54 40 - 130 Units/L [facility] ALT 16 7 - 45 Units/L [facility] AST 22 10 - 45 Units/L [facility] Blood 08/13/2024 9:43 AM BALL POINTS INSPECTOR 08/13/2024 9:43 AM BALL POINTS INSPECTOR us Jose Chairez MD PhD LAB BLOOD ORDERABLES Final Result [facility] Department [place] [address] * eGFR (07/23/2024 7:49 AM BALL POINTS INSPECTOR) eGFR >90 >=60 mL/min/1. 73 m2 Comment: [...] last reviewed 2021. Blood 07/23/2024 7:49 AM BALL POINTS INSPECTOR 07/23/2024 7:49 AM BALL POINTS INSPECTOR us Daryl Glasgow KARDEX CLERK LAB BLOOD ORDERABLES Valencia valadez Result [facility] Department [place] [address] * Differential, auto (07/23/2024 7:49 AM BALL POINTS INSPECTOR) Neutrophil abs 4.0 1.5 - 6.5 K/cumm Comment:Testing performed by : [facility], [address] [place] [address] Imm gran abs 0.0 0.0 - 0.1 K/cumm [facility] Lymphocyte abs 2.5 0.8 - 3.3 K/cumm [facility] Monocyte abs 0.6 0.2 - 0.8 K/cumm [facility] Eosinophil abs 0.3 0.0 - 0.5 K/cumm [facility] Basophil abs 0.1 0.0 - 0.1 K/cumm [facility] Neutrophil pct 53.7 % [facility] Comment: Interpretive Data Percent cell count reference ranges are not reported, since discordance with absolute values may lead to misinterpretation of CBC data. Current Interpretive Data was last revised on 2017. Imm gran pct 0.4 % [facility] Comment: Interpretive Data Percent cell count reference ranges are not reported, since discordance with absolute values may lead to misinterpretation of CBC data. Current Interpretive Data was last revised on 2017. Lymphocyte pct 33.4 % [facility] Comment: Interpretive Data Percent cell count reference ranges are not reported, since discordance with absolute values may lead to misinterpretation of CBC data. Current Interpretive Data was last revised on 2017. Monocyte pct 8.3 % [facility] Comment: Interpretive Data Percent cell count reference ranges are not reported, since discordance with absolute values may lead to misinterpretation of CBC data. Current Interpretive Data was last revised on 2017. Eosinophil pct 3.4 % [facility] Comment: Interpretive Data Percent cell count reference ranges are not reported, since discordance with absolute values may lead to misinterpretation of CBC data. Current Interpretive Data was last revised on 2017. Basophil pct 0.8 % [facility] Comment: Interpretive Data Percent cell count reference ranges are not reported, since discordance with absolute values may lead to misinterpretation of CBC data. Current Interpretive Data was last revised on 2017. Blood 07/23/2024 7:49 AM BALL POINTS INSPECTOR 07/23/2024 7:49 AM BALL POINTS INSPECTOR us Daryl Glasgow NP LAB BLOOD ORDERABLES Valencia l Result [facility] Department [place] [address] * Thyroid Function Clarke (07/23/2024 7:49 AM BALL POINTS INSPECTOR) Pathologist [facility] TSH 2.26 0.30 - 4.20 mcIUnit/mL Blood 07/23/2024 7:49 AM BALL POINTS INSPECTOR 07/23/2024 8:48 AM BALL POINTS INSPECTOR Daryl Glasgow NP LAB BLOOD ORDERABLES Valencia valadez Result [facility] Department [place] [address] * CBC with auto differential (07/23/2024 7:49 AM BALL POINTS INSPECTOR) [facility] [address] WBC 7.4 3.8 - 9.9 K/cumm Comment:Testing performed by : [address] [address] Hgb 13.7 11.9 - 15.5 g/dL [facility] Comment:Testing performed by : [address] [address] Hct 40.4 35.6 - 45.5 % [facility] Comment:Testing performed by : [address] [address] Plt 220 150 - 400 K/cumm [facility] Comment:Testing performed by : [address] [address] MPV 9.3 9.1 - 12.3 fL [facility] RBC 4.67 3.90 - 5.20 M/cumm [facility] MCV 86.5 81.3 - 96.4 fL [facility] MCH 29.3 27.1 - 33.3 pg [facility] MCHC 33.9 32.3 - 35.7 g/dL [facility] RDW CV 13.2 11.1 - 14.9 % [facility] RDW SD 41.2 35.7 - 48.1 fL [facility] NRBC abs 0.00 0.00 - 0.01 K/cumm [facility] Blood 07/23/2024 7:49 AM BALL POINTS INSPECTOR 07/23/2024 7:49 AM BALL POINTS INSPECTOR us Daryl Glasgow NP LAB BLOOD ORDERABLES Valencia l Result Performing Organization Address [facility] Co de Phone Number [facility] Department [place] [address] * (ABNORMAL) Manual Differential (07/23/2024 7:49 AM BALL POINTS INSPECTOR) Differential Auto RBC morphology Present(A) [facility] Anisocytosis Slight(A) [facility] Platelet estimate Adequate [facility] Blood 07/23/2024 7:49 AM BALL POINTS INSPECTOR 07/23/2024 7:49 AM BALL POINTS INSPECTOR us Daryl Glasgow NP LAB BLOOD ORDERABLES Valencia l Result Performing Organization Address [facility] Co de Phone Number [facility] Department [place] [address] * Lactate dehydrogenase (LD) (07/23/2024 7:49 AM BALL POINTS INSPECTOR) [facility] [address] Lactate dehydrogenase (LDH) 213 100 - 250 Units/L Comment:Testing performed by : [address] [address] Blood 07/23/2024 7:49 AM BALL POINTS INSPECTOR 07/23/2024 7:49 AM BALL POINTS INSPECTOR Daryl Glasgow NP LAB BLOOD ORDERABLES Valencia l Result Performing Organization Address [facility] Co de Phone Number [facility] [place] [address] * (ABNORMAL) Comprehensive metabolic panel (07/23/2024 7:49 AM BALL POINTS INSPECTOR) Pathologist [facility] Sodium 142 135 - 145 mmol/L Comment:Testing performed by : [address] [place] [address] Potassium, pl 3.6 3.3 - 4.9 mmol/L [facility] Chloride 104 97 - 110 mmol/L [facility] CO2 28 22 - 32 mmol/L [facility] Anion gap 10 2 - 15 mmol/L [facility] BUN 14 6 - 25 mg/dL [facility] Creatinine 0.58(L) 0.60 - 1.10 mg/dL [facility] Glucose 97 70 - 199 mg/dL [facility] Comment: Interpretive Data Fasting glucose >/= 126 [...] 2022. Calcium 9.7 8.5 - 10.3 mg/dL [facility] Bilirubin, total 0.5 0.1 - 1.2 mg/dL [facility] Protein, pl 7.5 6.5 - 8.5 g/dL [facility] Albumin 4.4 3.5 - 5.0 g/dL [facility] Alk phos 54 40 - 130 Units/L [facility] ALT 18 7 - 45 Units/L [facility] AST 22 10 - 45 Units/L [facility] Blood 07/23/2024 7:49 AM BALL POINTS INSPECTOR 07/23/2024 7:49 AM BALL POINTS INSPECTOR us Daryl Glasgow NP LAB BLOOD ORDERABLES Valencia valadez Result [facility] Department [place] [address] * eGFR (07/02/2024 7:59 AM CDT) eGFR [...] NP LAB BLOOD ORDERABLES Valencia valadez Result [facility] Department [place] [address] * Differential, auto (07/02/2024 7:59 AM CDT) Pathologist [facility] Neutrophil abs 6.3 1.5 - 6.5 K/cumm Comment:Testing performed by : [facility], [address] [place] [address] Imm gran abs 0.0 0.0 - 0.1 K/cumm [facility] Lymphocyte abs 2.4 0.8 - 3.3 K/cumm [facility] Monocyte abs 0.8 0.2 - 0.8 K/cumm [facility] Eosinophil abs 0.3 0.0 - 0.5 K/cumm [facility] Basophil abs 0.1 0.0 - 0.1 K/cumm [facility] Neutrophil pct 63.6 % [facility] Comment: Interpretive Data Percent cell count reference ranges are not reported, since discordance with absolute values may lead to misinterpretation of CBC data. Current Interpretive Data was last revised on 2017. Imm gran pct 0.3 % [facility] Comment: Interpretive Data Percent cell count reference ranges are not reported, since discordance with absolute values may lead to misinterpretation of CBC data. Current Interpretive Data was last revised on 2017. Lymphocyte pct 24.5 % [facility] Comment: Interpretive Data Percent cell count reference ranges are not reported, since discordance with absolute values may lead to misinterpretation of CBC data. Current Interpretive Data was last revised on 2017. Monocyte pct 7.8 % [facility] Comment: Interpretive Data Percent cell count reference ranges are not reported, since discordance with absolute values may lead to misinterpretation of CBC data. Current Interpretive Data was last revised on 2017. Eosinophil pct 3.0 % [facility] Comment: Interpretive Data Percent cell count reference ranges are not reported, since discordance with absolute values may lead to misinterpretation of CBC data. Current Interpretive Data was last revised on 2017. Basophil pct 0.8 % [facility] Comment: Interpretive Data Percent cell count reference ranges are not reported, since discordance with absolute values may lead to misinterpretation of CBC data. Current Interpretive Data was last revised on 2017. Blood 07/02/2024 7:59 AM CDT 07/02/2024 7:59 AM CDT us Daryl Glasgow NP LAB BLOOD ORDERABLES Valencia valadez Result [facility] Department [place] [address] * Thyroid Function Clarke (07/02/2024 7:59 AM CDT) Pathologist [facility] TSH 1.75 0.30 - 4.20 mcIUnit/mL Blood 07/02/2024 7:59 AM CDT 07/02/2024 9:14 AM CDT Daryl Glasgow NP LAB BLOOD ORDERABLES Valencia rory Result [facility] Department [place] [address] * CBC with auto differential (07/02/2024 7:59 AM CDT) [facility] [address] WBC 9.9 3.8 - 9.9 K/cumm Comment:Testing performed by : [address] [address] Hgb 13.7 11.9 - 15.5 g/dL [facility] Comment:Testing performed by : [address] [address] Hct 40.9 35.6 - 45.5 % [facility] Comment:Testing performed by : [address] [address] Plt 233 150 - 400 K/cumm [facility] Comment:Testing performed by : [address] [address] MPV 9.1 9.1 - 12.3 fL [facility] RBC 4.73 3.90 - 5.20 M/cumm [facility] MCV 86.5 81.3 - 96.4 fL [facility] MCH 29.0 27.1 - 33.3 pg [facility] MCHC 33.5 32.3 - 35.7 g/dL [facility] RDW CV 12.9 11.1 - 14.9 % [facility] RDW SD 40.8 35.7 - 48.1 fL [facility] NRBC abs 0.00 0.00 - 0.01 K/cumm [facility] Blood 07/02/2024 7:59 AM CDT 07/02/2024 7:59 AM CDT Daryl Glasgow NP LAB BLOOD ORDERABLES Valencia l Result Performing Organization Address [facility] Co de Phone Number [facility] Department [place] [address] * Lactate dehydrogenase (LD) (07/02/2024 7:59 AM CDT) [facility] [address] [facility] Lactate dehydrogenase (LDH) 194 100 - 250 Units/L Comment:Testing performed by : [facility], [address] [place] [address] Blood 07/02/2024 7:59 AM CDT 07/02/2024 7:59 AM CDT Daryl Glasgow NP LAB BLOOD ORDERABLES Valencia l Result Performing Organization Address [facility] de Phone Number [facility] [place] [address] * Comprehensive metabolic panel (07/02/2024 7:59 AM CDT) [facility] [address] Sodium 139 135 - 145 mmol/L Comment:Testing performed by : [address] [address] Potassium, pl 3.6 3.3 - 4.9 mmol/L [facility] Chloride 103 97 - 110 mmol/L [facility] CO2 27 22 - 32 mmol/L [facility] Anion gap 9 2 - 15 mmol/L [facility] BUN 18 6 - 25 mg/dL [facility] Creatinine 0.69 0.60 - 1.10 mg/dL [facility] Glucose 90 70 - 199 mg/dL [facility] Comment: Interpretive Data Fasting glucose >/= 126 [...] Calcium 10.2 8.5 - 10.3 mg/dL [facility] Bilirubin, total 0.5 0.1 - 1.2 [...] NP LAB BLOOD ORDERABLES Valencia valadez Result [facility] [place] [address] from Last 3 Months Insurance MEDICARE [employer] SENIOR SUPPLEMENT MEDICARE [employer] SENIOR SUPPLEMENT Advance Directives For more information, please contact: [phone] Documents on File Type Date Recorded Patient Personnel Adviser Expl anation ADVANCE DIRECTIVE 10/11/2023 6:33 AM Shabnam Neri * Full Code (Latest Code Status on File) Date Activated Date Inactivated Comments 11/29/2023 8:25 AM 11/30/2023 4:59 AM * Full Code Date Activated Date Inactivated Comments 11/23/2023 11:32 AM 11/24/2023 4:58 AM * Full Code Date Activated Date Inactivated Comments 11/10/2023 8:24 AM 11/11/2023 5:02 AM * Full Code Date Activated Date Inactivated Comments 10/11/2023 10:59 AM 10/12/2023 4:16 PM Care Teams Lockstitch Topstitcher Relationship Specialty Start Date End Date Becky Conroy NP [address] [place] [address] PCP - General Nurse Practitioner 07/06/23 Jose Chairez MD PhD [address] [facility] [address] [place] [address] Medical Oncologist/Plater Supervisor Medical Oncology 08/14/23 Evelin Lofton MD [address] [place] [address] Referring Physician Cardiovascular Disease 08/14/23
--- OUTSIDE RECORDS SUMMARY | 2024-09-17 04:21 | XMS_ITS | Encounter Summary ---
Author Organization [facility] Address [address] [place] [address] Phone Care Team Providers Care Meat Cutter Apprentice Name Role Phone Becky Conroy NP Primary Care Provider [phone] Jose Chairez MD PhD Unavailable [phone] Evelin Lofton MD Unavailable [phone] Encounter Details Date Type Department Care Team (Late st Contact Info) Description 01/11/2024 Orders Only [facility] Oncology [address] [place] [address] Jose Chairez MD PhD [address] [facility] [address] [place], [place] [id number] Social History Tobacco Use Types Packs/Day Years [...] on file 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 Gender Identity Not on file Sexual Orientation Not on file documented as of this encounter Plan of Treatment Not on file documented as of this encounter Visit Diagnoses Not on filedocumented in this encounter Care Teams Meat Cutter Apprentice Relationship Specialty Start Date End Date Becky Conroy NP [address] [place] [address] PCP - General Nurse Practitioner 07/06/23 Jose Chairez MD PhD [address] [facility] [address] [place] [address] Medical Oncologist/Supervisor Inspection And Testing Medical Oncology 08/14/23 Evelin Lofton MD [address] [place] [address] Referring Physician Cardiovascular Disease 08/14/23 documented as of this encounter
--- OUTSIDE RECORDS SUMMARY | 2024-09-17 04:21 | XMS_ITS | Encounter Summary ---
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 Gender Identity Not on file Sexual Orientation Not on file documented as of this encounter Plan of Treatment Not on file documented as of this encounter Procedures Procedure Name Priority Date/Time Associated Diagnosis Comments EGFR STAT 01/16/2024 1:11 PM CDT Malignant melanoma of unknown origin (HCC) DIFFERENTIAL AUTO Routine 01/16/2024 1:1 1 PM CDT Malignant melanoma of unknown origin (HCC) THYROID FUNCTION CASCADE Routine 01/16/2024 1:11 PM CDT Malignant melanoma of unknown origin (HCC) CBC WITH AUTO DIFFERENTIAL Routine 01/16/2024 1:11 PM CDT Malignant melanoma of unknown origin (HCC) T3, FREE Routine 01/16/2024 1:11 PM CDT T4, FREE Routine 01/16/2024 1:11 PM CDT Malignant melanoma of unknown origin (HCC) LACTATE DEHYDROGENASE Routine 01/16/2024 1:11 PM CDT Malignant melanoma of unknown origin (HCC) COMPREHENSIVE METABOLIC PANEL STAT 01/16/2024 1:11 PM CDT Malignant melanoma of unknown origin (HCC) documented in this encounter Results * T3, free (01/16/2024 1:11 PM CDT) Pathologist [facility] Free T3 3.4 2.0 - 4.4 pg/mL Blood 01/16/2024 1:11 PM CDT 01/16/2024 2:59 PM CDT Narrative [facility] - 01/16/2024 4:12 PM CDT This test was reflexed from a Free T4 result. us Jose Chairez MD PhD LAB BLOOD ORDERABLES Final Result [facility] One [facility] Department [place] [address] * T4, free (01/16/2024 1:11 PM CDT) Pathologist [facility] Free T4 1.40 0.90 - 1.70 ng/dL Blood 01/16/2024 1:11 PM CDT 01/16/2024 2:59 PM CDT Narrative [facility] - 01/16/2024 3:50 PM CDT This test was reflexed from a TSH result. us Jose Chairez MD PhD LAB BLOOD ORDERABLES Final Result [facility] One [facility] [place] [address] * eGFR (01/16/2024 1:11 PM CDT) eGFR 88 >=60 mL/min/1. 73 m2 [...] interpretive data was last reviewed 2021. Blood 01/16/2024 1:11 PM CDT 01/16/2024 1:11 PM CDT us Jose Chairez MD PhD LAB BLOOD ORDERABLES Final Result [facility] One [facility] [place] [address] * Differential, auto (01/16/2024 1:11 PM CDT) Neutrophil abs 5.1 1.5 - 6.5 K/cumm Comment:Testing performed by : [facility], [address] [place] [address] Imm gran abs 0.0 0.0 - 0.1 K/cumm [facility] Lymphocyte abs 2.6 0.8 - 3.3 K/cumm [facility] Monocyte abs 0.7 0.2 - 0.8 K/cumm [facility] Eosinophil abs 0.2 0.0 - 0.5 K/cumm [facility] Basophil abs 0.1 0.0 - 0.1 K/cumm [facility] Neutrophil pct 59.1 % [facility] Comment: Interpretive Data Percent cell count reference ranges are not reported, since discordance with absolute values may lead to misinterpretation of CBC data. Current Interpretive Data was last revised on 2017. Imm gran pct 0.2 % [facility] Comment: Interpretive Data Percent cell count reference ranges are not reported, since discordance with absolute values may lead to misinterpretation of CBC data. Current Interpretive Data was last revised on 2017. Lymphocyte pct 29.5 % [facility] Comment: Interpretive Data Percent cell count reference ranges are not reported, since discordance with absolute values may lead to misinterpretation of CBC data. Current Interpretive Data was last revised on 2017. Monocyte pct 8.2 % [facility] Comment: Interpretive Data Percent cell count reference ranges are not reported, since discordance with absolute values may lead to misinterpretation of CBC data. Current Interpretive Data was last revised on 2017. Eosinophil pct 2.3 % [facility] Comment: Interpretive Data Percent cell count reference ranges are not reported, since discordance with absolute values may lead to misinterpretation of CBC data. Current Interpretive Data was last revised on 2017. Basophil pct 0.7 % [facility] Comment: Interpretive Data Percent cell count reference ranges are not reported, since discordance with absolute values may lead to misinterpretation of CBC data. Current Interpretive Data was last revised on 2017. Blood 01/16/2024 1:11 PM CDT 01/16/2024 1:11 PM CDT Jose Chairez MD PhD LAB BLOOD ORDERABLES Final Result Performing Organization Address City/[facility] [place] [address] * (ABNORMAL) Thyroid Function Deuel (01/16/2024 1:11 PM CDT) TSH <0.01(L) 0.30 - 4.20 mcIUnit/mL Blood 01/16/2024 1:11 PM CDT 01/16/2024 2:49 PM CDT Jose Chairez MD PhD LAB BLOOD ORDERABLES Final Result Performing Organization Address [facility] de Phone Number [facility] Department [place] [address] * Lactate dehydrogenase (LD) (01/16/2024 1:11 PM CDT) Lactate dehydrogenase (LDH) 205 100 - 250 Units/L Comment:Testing performed by : [facility], [address] [place] [address] Blood 01/16/2024 1:11 PM CDT 01/16/2024 1:11 PM CDT Jose Chairez MD PhD LAB BLOOD ORDERABLES Final Result Performing Organization Address [facility] Co de Phone Number [facility] Department of Laboratories [place], [place] [id number] * CBC with auto differential (01/16/2024 1:11 PM CDT) [facility] WBC 8.7 3.8 - 9.9 K/cumm Comment:Testing performed by : [address] [address] Hgb 12.9 11.9 - 15.5 g/dL [facility] Comment:Testing performed by : [address] [address] Hct 38.4 35.6 - 45.5 % [facility] Comment:Testing performed by : [address] [address] Plt 250 150 - 400 K/cumm [facility] Comment:Testing performed by : [address] [address] MPV 9.6 9.1 - 12.3 fL [facility] RBC 4.40 3.90 - 5.20 M/cumm [facility] MCV 87.3 81.3 - 96.4 fL [facility] MCH 29.3 27.1 - 33.3 pg [facility] MCHC 33.6 32.3 - 35.7 g/dL [facility] RDW CV 12.8 11.1 - 14.9 % [facility] RDW SD 40.7 35.7 - 48.1 fL [facility] NRBC abs 0.00 0.00 - 0.01 K/cumm [facility] Blood 01/16/2024 1:11 PM CDT 01/16/2024 1:11 PM CDT us Jose Chairez MD PhD LAB BLOOD ORDERABLES Final Result [facility] One [facility] [place] [address] * Comprehensive metabolic panel (01/16/2024 1:11 PM CDT) [facility] Sodium 142 135 - 145 mmol/L Comment:Testing performed by : [address] [address] Potassium, pl 3.6 3.3 - 4.9 mmol/L [facility] Chloride 105 97 - 110 mmol/L [facility] CO2 27 22 - 32 mmol/L [facility] Anion gap 10 2 - 15 mmol/L [facility] BUN 22 6 - 25 mg/dL [facility] Creatinine 0.68 0.60 - 1.10 mg/dL [facility] Glucose 100 70 - 199 mg/dL [facility] Comment: Interpretive Data Fasting [...] 2022. Calcium 10.2 8.5 - 10.3 mg/dL [facility] Bilirubin, total 0.3 0.1 - 1.2 mg/dL [facility] Protein, pl 7.7 6.5 - 8.5 g/dL [facility] Albumin 4.4 3.5 - 5.0 g/dL [facility] Alk phos 53 40 - 130 Units/L [facility] ALT 19 7 - 45 Units/L [facility] AST 23 10 - 45 Units/L [facility] Blood 01/16/2024 1:11 PM CDT 01/16/2024 1:11 PM CDT us Jose Chairez MD PhD LAB BLOOD ORDERABLES Final Result [facility] One [facility] [place] [address] documented in this encounter Visit Diagnoses Diagnosis Malignant melanoma of unknown origin (HCC) documented in this encounter Care Teams Roller Inspector Relationship Specialty Start Date End Date Becky Conroy NP [address] [place] [address] PCP - General Nurse Practitioner 07/06/23 Jose Chairez MD PhD [address] [facility] [address] [place] [address] Medical Oncologist/Insecticide Sprayer Medical Oncology 08/14/23 Evelin Lofton MD [address] [place] [address] Referring Physician Cardiovascular Disease 08/14/23 documented as of this encounter
--- OUTSIDE RECORDS SUMMARY | 2024-09-17 04:21 | XMS_ITS | Encounter Summary ---
Author Organization [facility] Healthcare Address [address] [place] [address] Care Team Providers Care Transition Program Manager Name Role Phone Becky Conroy NP Primary Care Provider [phone] Jose Chairez MD PhD Unavailable [phone] Evelin Lofton MD Unavailable [phone] Reason for Visit * MRI/CAT/PET Scan (Routine) - Closed Specialty Diagnoses / Procedures Referred By Contac t Referred To Contact Radiology Diagnoses Malignant melanoma of unknown origin (HCC) Procedures PET/CT FDG Skull to Thigh Jose Chairez MD PhD [address] [facility] [address] [place] [address] Phone: tel: fax: [facility] Referral ID Status Reason Start Date Expiration Date Visits Re quested Visits Authorized [id number] Closed 12/26/2023 01/24/2025 2 2 Encounter Details Date Type Department Care Team (Latest Contact Info) Description 03/18/2024 10:36 AM CDT - 03/18/2024 11:59 PM T Hospital Encounter [facility] [address] [place] [address] Discharge Disposition: Discharge to home [...] on file 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 Gender Identity Not on file Sexual Orientation [...] total) by mouth every morning 0.5 tablet zinc gluconate 50 mg tabletIndications: supplement Take 1 tablet (50 mg total) by mouth every morning gabapentin (NEURONTIN) 100 mg capsule Take 2 capsules (200 mg total) by mouth 3 (three) times a day for 14 days 84 capsule 10/31/2023 4 hydrOXYzine (ATARAX) 10 mg tablet TAKE 1 TABLET (10 MG TOTAL) BY MOUTH NIGHTLY NEEDED FOR ITCHING 90 tablet 01/02/2024 4 prochlorperazine (Compazine) 10 mg tabletIndications: Malignant melanoma of unknown origin (HCC) Take 1 tablet (10 mg total) by mouth every 6 (six) hours as needed for nausea or vomiting 30 tablet 3 08/07/2023 4 triamcinolone (KENALOG) 0.1 % cream APPLY TO AFFECTED AREA TWICE A DAY 80 g 3 01/08/2024 4 documented as of this encounter Discharge Disposition Disposition Code Departure Means Destination Discharge to home or self care documented in this encounter Plan of Treatment Not on file documented as of this encounter Procedures Procedure Name Priority Date/Time Associated Diagnosis Comments PET/CT FDG SKULL TO THIGH Schedule Routine, Read Routine (OP Routine) 03/18/2024 12:20 PM CDT Malignant melanoma of unknown origin (HCC) documented in this encounter Results * PET/CT FDG Skull to Thigh (03/18/2024 12:20 PM CDT) Anatomical Region Laterality Modality N/A Positron Emissio n Tomography (PET) 03/18/2024 3:24 PM CDT Impressions 03/18/2024 5:44 PM CDT 1. ??Stable postoperative changes of left axillary lymph node dissection with likely lymphedema within the left breast. ??No evidence of disease recurrence. 2. ??Stable indeterminate 1.2 cm right middle lobe pulmonary nodule dating back to 07/31/2023. Dictated by: Donnie Schulz MD The radiology attending physician has personally reviewed this study, and had reviewed and/or edited this written report and agrees with it. Electronically signed by: Hernando Cordova M.D. Narrative 03/18/2024 5:44 PM CDT EXAMINATION: TUMOR FDG-PET/CT IMAGING DATE OF STUDY: ??03/18/2024 SCANNER: [facility] RADIOPHARMACEUTICAL: 16.7 mCi F-18 [...] before injection of FDG, was 96 mg/dL. ?? After intravenous administration of FDG, noncontrast CT images were obtained for attenuation correction and for fusion with emission PET images to allow for anatomical localization of PET findings. ??Emission PET images were then obtained. ??The study was interpreted on the [employer] workstation. ??The mean liver SUV (reported for air quality chemist purposes) is 2.6. ?? The total scanned area was skull vertex to the knees. ??Images of the body were obtained starting 53 minutes after injection of tracer. COMPARISON: 12/25/2023, 07/31/2023 DESCRIPTORS OF LESION FDG AVIDITY: Minimal: ? <= blood pool ? Mild: ?> blood pool and <= liver ? Moderate: ?? > liver and <= 2x SUVmax liver ? Moderate to marked: ?? >2x SUVmax liver and <= 3x SUVmax liver ? Marked: ? > 3x SUVmax liver ? FINDINGS: Postsurgical changes of left axillary lymph node dissection with unchanged dependent skin thickening involving the left breast with mild FDG avidity likely representing congestion in the setting of lymphedema. There is an unchanged right middle lobe pulmonary nodule with mild FDG avidity measuring 1.2 cm in longest axis (image 139) with a maximum SUV of 1.9. ?? Mild FDG avidity involving the distal esophagus with small hiatal hernia is likely related to reflux esophagitis. Additional CT findings: Left maxillary mucous retention cyst. Multinodular thyroid. ??Aortic and coronary atherosclerotic calcifications. ??Old granulomatous disease. ??Cholecystectomy. Hysterectomy. ??Changes of prior colonic surgery. Procedure Note Hernando Cordova MD - 03/18/2024 EXAMINATION: TUMOR FDG-PET/CT IMAGING DATE OF STUDY: [...] obtained. The study was interpreted on the [employer] workstation. The mean liver SUV (reported for air quality chemist purposes) is 2.6. The total scanned area [...] Cholecystectomy. Hysterectomy. Changes of prior colonic surgery. IMPRESSION: 1. Stable postoperative changes of left axillary [...] it. Electronically signed by: Hernando Cordova M.D. Jose Chairez MD PhD IMG PET PROCEDURES F inal Result documented in this encounter Visit Diagnoses Not on filedocumented in this encounter Care Teams Transition Program Manager Relationship Specialty Start Date End Date Becky Conroy NP [address] [place] [address] PCP - General Nurse Practitioner 07/06/23 Jose Chairez MD PhD [address] [facility] [address] [place] [address] Medical Oncologist/[employer] Consultant Medical Oncology 08/14/23 Evelin Lofton MD [address] [place] [address] Referring Physician Cardiovascular Disease 08/14/23 documented as of this encounter
--- OUTSIDE RECORDS SUMMARY | 2024-09-17 04:21 | XMS_ITS | Encounter Summary ---
Author Organization [facility] Address [address] [place] [address] Phone Care Team Providers Care Quilt Maker Name Role Phone Becky Conroy NP Primary Care Provider [phone] Jose Chairez MD PhD Unavailable [phone] Evelin Lofton MD Unavailable [phone] Reason for Visit * Episode Based Medications (Routine) - Closed Specialty Diagnoses / Procedures Referred By Contac t Referred To Contact Oncology Diagnoses Malignant melanoma of unknown origin (HCC) Jose Chairez MD PhD [address] [facility] [address] [place] [address] Phone: tel: fax: [facility] [address] [place] [id number] Phone: tel: fax: Referral ID Status Reason Start Date Expiration Date Visits Re quested Visits Authorized [id number] Closed 05/27/2024 09/04/2024 1 30 Encounter Details Date Type Department Care Team (Late st Contact Info) Description 01/16/2024 1:45 PM CDT Lab [facility] Oncology [address] [place] [phone] Malignant melanoma of unknown origin (HCC) Social [...] on file 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 Gender Identity Not on file Sexual Orientation Not on file documented as of this encounter Plan of Treatment Not on file documented as of this encounter Visit Diagnoses Diagnosis Malignant melanoma of unknown origin (HCC) documented in this encounter Orders Appointment Requests Count Last Ordered Date Fi rst Ordered Date ONCBCN LAB APPOINTMENT 1 01/16/2024 documented in this encounter Care Teams Quilt Maker Relationship Specialty Start Date End Date Becky Conroy NP [address] [place] [address] PCP - General Nurse Practitioner 07/06/23 Jose Chairez MD PhD [address] [facility] [address] [place] [address] Medical Oncologist/Assembler Fitter Medical Oncology 08/14/23 Evelin Lofton MD [address] [place] [address] Referring Physician Cardiovascular Disease 08/14/23 documented as of this encounter
--- OUTSIDE RECORDS SUMMARY | 2024-09-17 04:21 | XMS_ITS | Encounter Summary ---
Author Organization [facility] Address [address] [place] [address] Phone Care Team Providers Care Stamping Die Maker Name Role Phone Becky Conroy NP Primary Care Provider [phone] Jose Chairez MD PhD Unavailable +1- [phone] Evelin Lofton MD Unavailable [phone] Reason for Referral * MRI/CAT/PET Scan (Routine) - Closed Specialty Diagnoses / Procedures Referred By Korey harkins Referred To Contact Radiology Diagnoses Malignant melanoma of unknown origin (HCC) Procedures PET/CT FDG Skull to Thigh Jose Chairez MD PhD [address] [address] Phone: tel: fax: [facility] Referral ID Status Reason Start Date Expiration Date Visits Re quested Visits Authorized [id number] Closed 12/26/2023 01/24/2025 2 2 Reason for Visit * Episode Based Medications (Routine) - Closed Specialty Diagnoses / Procedures Referred By Korey harkins Referred To Contact Oncology Diagnoses Malignant melanoma of unknown origin (HCC) Jose Chairez MD PhD [address] [address] Phone: tel: fax: [address] [address] Phone: tel: fax: Referral ID Status Reason Start Date Expiration Date Visits Re quested Visits Authorized [id number] Closed 05/27/2024 09/04/2024 1 30 Encounter Details Date Type Department Care Team (Late st Contact Info) Description 12/26/2023 11:00 AM CDT Office Visit [facility] Oncology [address] [place] [address] Jose Chairez MD PhD [address] [facility] [address] [place] [address] Malignant melanoma of unknown origin [...] on file 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 Gender Identity Not on file Sexual Orientation Not on file documented as of this encounter Last Filed Vital Signs Vital Sign Reading Time Taken Comments Blood Pressure 136/65 12/26/2023 11:14 AM CDT Pulse 64 12/26/2023 11:14 AM CDT Temperature 36.4 ??C (97.6 ??F) 12/26/2023 1 1:14 AM CDT Respiratory Rate 17 12/26/2023 11:1 4 AM CDT Oxygen Saturation 98% 12/26/2023 11: 14 AM CDT Inhaled Oxygen Concentration - - Weight 63.8 kg (140 lb 11.2 oz) 024 11:14 AM CDT Height - - Body Mass Index 23.41 11/29/2023 8:23 AM CDT documented in this encounter Progress Notes * Jose Chairez MD PhD - 12/26/2023 11:00 AM CDT Oncology Progress Note Cancer Staging [...] setting of recent axillary lymph node dissection. 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 Overall doing well. Working but fatigued at end of day but recovers. Pleased to have drain out. Does note some swelling around L outer breast persists but going down somewhat. No new or concerning lesions or masses. Presents with daughter. No Known Allergies Outpatient Encounter Medications as of 12/26/2023: clopidogreL (PLAVIX) 75 mg tablet, Take 1 [...] tablet (20 mg total) by mouth as needed, Disp: , Rfl: hydroCHLOROthiazide (HYDRODIURIL) 25 mg tablet, Take 1 tablet (25 mg total) by mouth every morning,Disp: , Rfl: hydrOXYzine (ATARAX) 10 mg tablet, Take 1 tablet (10 mg total) by mouth nightly as needed for itching, Disp: 30 tablet, Rfl: 2 meloxicam (MOBIC) 7.5 mg tablet, Take 1 tablet (7.5 mg total) by mouth as needed for pain, Disp: , Rfl: metoprolol XL (TOPROL-XL) 50 [...] hoursas needed for nausea or vomiting (Patient taking differently: Take 1 tablet (10 mg total) by mouth as needed for nausea or vomiting), Disp: 30 tablet, Rfl: 3 rosuvastatin (CRESTOR) 10 mg tablet, Take 0.5 tablets (5 mg total) by mouth every morning 0.5 tablet, Disp: , Rfl: triamcinolone (KENALOG) 0.1 % cream, Apply topically 2 (two) times a day (Patient taking differently: Apply topically as needed for irritation), Disp: 80 g, Rfl: 3 zinc gluconate 50 mg tablet, Take 1 tablet (50 mg total) by mouth every morning, Disp: , Rfl: gabapentin (NEURONTIN) 100 mg capsule, Take 2 capsules (200 mg total) by mouth 3 (three) times a day for 14 days, Disp: 84 capsule, Rfl: 0 Facility-Administered Encounter Medications as of 12/26/2023: [COMPLETED] fludeoxyglucose F-18 (FDG) injection 17.07 millicurie, 17.07 millicurie, intravenous, Once in imaging, Jose Chairez MD PhD, 17.07 millicurie at 12/25/23 1033 Review of Systems: Review of systems per HPI and otherwise all other systems are negative Performance Status: ECOG 0 Objective Vitals: Most Recent : BP: 136/65 Temp: 36.4 ??C (97.6 ??F) Pulse: 64 Resp: 17 SpO2: 98 % Weight: 63.8 kg (140 lb 11.2 oz) Physical Exam: General Appearance: Well-appearing, in no apparent distress. ECO HEENT: Normocephalic, atraumatic. Pupils equal, round and reactive to light. Sclera anicteric. Oropharynx clear. Chest: CTA B CV: RRR Extremities: No edema, clubbing or cyanosis. 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 Neuro: Non-focal. Lab/Radiology/Diagnostic Review: Recent Results (from the past 72 hour(s)) Comprehensive metabolic panel Collection Time: 12/26/23 9:55 AM Result Value Ref Range Sodium 140 135 - 145 mmol/L Potassium, pl 3.2 (L) 3.3 - 4.9 mmol/L Chloride 102 97 - 110 mmol/L CO2 27 22 - 32 mmol/L Anion gap 11 2 - 15 mmol/L BUN 17 6 - 25 mg/dL Creatinine 0.64 0.60 - 1.10 mg/dL Glucose 99 70 - 199 mg/dL Calcium 10.3 8.5 - 10.3 mg/dL Bilirubin, total 0.6 0.1 - 1.2 mg/dL Protein, pl 8.2 6.5 - 8.5 g/dL Albumin 4.5 3.5 - 5.0 g/dL Alk phos 50 40 - 130 Units/L ALT 21 7 - 45 Units/L AST 25 10 - 45 Units/L CBC with auto differential Collection Time: 12/26/23 9:55 AM Result Value Ref Range WBC 7.6 3.8 - 9.9 K/cumm Hgb 14.2 11.9 - 15.5 g/dL Hct 41.8 35.6 - 45.5 % Plt 266 150 - 400 K/cumm MPV 9.4 9.1 - 12.3 fL RBC 4.84 3.90 - 5.20 M/cumm MCV 86.4 81.3 - 96.4 fL MCH 29.3 27.1 - 33.3 pg MCHC 34.0 32.3 - 35.7 g/dL RDW CV 12.5 11.1 - 14.9 % RDW SD 39.6 35.7 - 48.1 fL NRBC abs 0.00 0.00 - 0.01 K/cumm Lactate dehydrogenase (LD) Collection Time: 12/26/23 9:55 AM Result Value Ref Range Lactate dehydrogenase (LDH) 194 100 - 250 Units/L Thyroid Function [place] Collection Time: 12/26/23 9:55 AM Result Value Ref Range TSH <0.01 (L) 0.30 - 4.20 mcIUnit/mL Differential, auto Collection Time: 12/26/23 9:55 AM Result Value Ref Range Neutrophil abs 4.0 1.5 - 6.5 K/cumm Imm gran abs 0.0 0.0 - 0.1 K/cumm Lymphocyte abs 2.6 0.8 - 3.3 K/cumm Monocyte abs 0.7 0.2 - 0.8 K/cumm Eosinophil abs 0.2 0.0 - 0.5 K/cumm Basophil abs 0.1 0.0 - 0.1 K/cumm Neutrophil pct 53.2 % Imm gran pct 0.3 % Lymphocyte pct 34.5 % Monocyte pct 9.1 % Eosinophil pct 2.0 % Basophil pct 0.9 % eGFR Collection Time: 12/26/23 9:55 AM Result Value Ref Range eGFR 89 >=60 mL/min/1.73 m2 T4, free Collection Time: 12/26/23 9:55 AM Result Value Ref Range Free T4 1.77 (H) 0.90 - 1.70 ng/dL Radiology: I have personally reviewed imaging and agree with findings noted with BELLE on PET. Assessment/Plan Magui Baker is 78 y.o. woman with metastatic melanoma presenting for [...] surgery). Monitor small lung nodule on subsequent scans. Otherwise BELLE on PET this week - great news! MRI brain - no evidence of melanoma mets, repeat annual. TSH - previously normal T4, but low TSH. Subclinical hyperthyroid now with elevated T4 and low TSH.Potentially autoimmune induced and will convert to hypothyroid? Monitor. ROV 3 weeks. Restaging PET 3 months from prior. All questions answered. Reiterated that I remain [...] FDG-PET/CT IMAGING DATE OF STUDY: ??03/18/2024 SCANNER: [facility] RADIOPHARMACEUTICAL: 16.7 mCi F-18 Fluorodeoxyglucose (FDG) i.v. [...] obtained. ??The study was interpreted on the Social 2 Step workstation. ??The mean liver SUV (reported for quality assurance tester purposes) is 2.6. ?? The total scanned [...] FDG-PET/CT IMAGING DATE OF STUDY: 03/18/2024 SCANNER: [facility] RADIOPHARMACEUTICAL: 16.7 mCi F-18 Fluorodeoxyglucose (FDG) i.v. [...] obtained. The study was interpreted on the Social 2 Step workstation. The mean liver SUV (reported for quality assurance tester purposes) is 2.6. The total scanned area [...] PhD IMG PET PROCEDURES F inal Result * Comprehensive metabolic panel (02/06/2024 9:38 AM CDT) Sodium 143 135 - 145 mmol/L Comment:Testing performed by : [facility], [address] [place] [address] Potassium, pl 4.0 3.3 - 4.9 mmol/L [facility] Chloride 108 97 - 110 mmol/L [facility] CO2 26 22 - 32 mmol/L [facility] Anion gap 9 2 - 15 mmol/L [facility] BUN 19 6 - 25 mg/dL [facility] Creatinine 0.65 0.60 - 1.10 mg/dL [facility] Glucose 102 70 - 199 mg/dL [facility] Comment: Interpretive Data Fasting glucose [...] interpretive data was last revised 2022. Calcium 10.0 8.5 - 10.3 mg/dL [facility] Bilirubin, total 0.4 0.1 - 1.2 mg/dL [facility] Protein, pl 7.5 6.5 - 8.5 g/dL [facility] Albumin 4.5 3.5 - 5.0 g/dL [facility] Alk phos 51 40 - 130 Units/L [facility] ALT 16 7 - 45 Units/L [facility] AST 21 10 - 45 Units/L [facility] Blood 02/06/2024 9:38 AM CDT 02/06/2024 9:42 AM CDT Jose Chairez MD PhD LAB BLOOD ORDERABLES Final Result [facility] Department [place] [address] * CBC with auto differential (02/06/2024 9:38 AM CDT) WBC 7.7 3.8 - 9.9 K/cumm Comment:Testing performed by : [address] [address] Hgb 13.4 11.9 - 15.5 g/dL [facility] Comment:Testing performed by : [address] [address] Hct 40.0 35.6 - 45.5 % [facility] Comment:Testing performed by : [facility], [address] [place] [address] Plt 252 150 - 400 K/cumm [facility] Comment:Testing performed by : [facility], [address] [place] [address] MPV 9.3 9.1 - 12.3 fL [facility] RBC 4.59 3.90 - 5.20 M/cumm [facility] MCV 87.1 81.3 - 96.4 fL [facility] MCH 29.2 27.1 - 33.3 pg [facility] MCHC 33.5 32.3 - 35.7 g/dL [facility] RDW CV 13.2 11.1 - 14.9 % [facility] RDW SD 41.6 35.7 - 48.1 fL [facility] NRBC abs 0.00 0.00 - 0.01 K/cumm [facility] Blood 02/06/2024 9:38 AM CDT 02/06/2024 9:42 AM CDT us Jose Chairez MD PhD LAB BLOOD ORDERABLES Final Result Performing Organization Address City/[facility]/ZIP Co de Phone Number [facility] Department [place] [address] * Lactate dehydrogenase (LD) (02/06/2024 9:38 AM CDT) Pathologist [facility] Lactate dehydrogenase (LDH) 202 100 - 250 Units/L Comment:Testing performed by : [facility], [address] [place] [address] Blood 02/06/2024 9:38 AM CDT 02/06/2024 9:42 AM CDT us Jose Chairez MD PhD LAB BLOOD ORDERABLES Final Result [facility] Department [place] [address] * (ABNORMAL) Thyroid Function [place] (02/06/2024 9:38 AM CDT) TSH 0.03(L) 0.30 - 4.20 mcIUnit/mL Blood 02/06/2024 9:38 AM CDT 02/06/2024 10:47 AM CDT Jose Chairez MD PhD LAB BLOOD ORDERABLES Final Result [facility] Department [place] [address] * Comprehensive metabolic panel (01/16/2024 1:11 PM CDT) Pathologist [facility] Sodium 142 135 - 145 mmol/L Comment:Testing performed by : [facility], [address] [place] [address] Potassium, pl 3.6 3.3 - 4.9 mmol/L [facility] Chloride 105 97 - 110 mmol/L [facility] CO2 27 22 - 32 mmol/L [facility] Anion gap 10 2 - 15 mmol/L [facility] BUN 22 6 - 25 mg/dL [facility] Creatinine 0.68 0.60 - 1.10 mg/dL [facility] Glucose 100 70 - 199 mg/dL [facility] Comment: Interpretive Data Fasting glucose [...] 2022. Calcium 10.2 8.5 - 10.3 mg/dL [facility] Bilirubin, total 0.3 0.1 - 1.2 mg/dL [facility] Protein, pl 7.7 6.5 - 8.5 g/dL [facility] Albumin 4.4 3.5 - 5.0 g/dL [facility] Alk phos 53 40 - 130 Units/L [facility] ALT 19 7 - 45 Units/L [facility] AST 23 10 - 45 Units/L [facility] Blood 01/16/2024 1:11 PM CDT 01/16/2024 1:11 PM CDT Jose Chairez MD PhD LAB BLOOD ORDERABLES Final Result [facility] Department [place] [address] * CBC with auto differential (01/16/2024 1:11 PM CDT) WBC 8.7 3.8 - 9.9 K/cumm Comment:Testing performed by : [address] [address] Hgb 12.9 11.9 - 15.5 g/dL [facility] Comment:Testing performed by : [address] [address] Hct 38.4 35.6 - 45.5 % [facility] Comment:Testing performed by : [address] [address] Plt 250 150 - 400 K/cumm [facility] Comment:Testing performed by : [address] [address] MPV 9.6 9.1 - 12.3 fL [facility] RBC 4.40 3.90 - 5.20 M/cumm [facility] MCV 87.3 81.3 - 96.4 fL [facility] MCH 29.3 27.1 - 33.3 pg [facility] MCHC 33.6 32.3 - 35.7 g/dL [facility] RDW CV 12.8 11.1 - 14.9 % [facility] RDW SD 40.7 35.7 - 48.1 fL [facility] NRBC abs 0.00 0.00 - 0.01 K/cumm [facility] Blood 01/16/2024 1:11 PM CDT 01/16/2024 1:11 PM CDT Jose Chairez MD PhD LAB BLOOD ORDERABLES Final Result Performing Organization Address [facility] [place] [address] * Lactate dehydrogenase (LD) (01/16/2024 1:11 PM CDT) Pathologist [facility] Lactate dehydrogenase (LDH) 205 100 - 250 Units/L Comment:Testing performed by : [facility], [address] [place] [address] Blood 01/16/2024 1:11 PM CDT 01/16/2024 1:11 PM CDT Jose Chairez MD PhD LAB BLOOD ORDERABLES Final Result Performing Organization Address [facility] Co de Phone Number [facility] [place] [address] * (ABNORMAL) Thyroid Function [place] (01/16/2024 1:11 PM CDT) [facility] TSH <0.01(L) 0.30 - 4.20 mcIUnit/mL Blood 01/16/2024 1:11 PM CDT 01/16/2024 2:49 PM CDT Jose Chairez MD PhD LAB BLOOD ORDERABLES Final Result Performing Organization Address [facility] [place] [address] documented in this encounter Visit Diagnoses Diagnosis Malignant melanoma of unknown origin (HCC)- Primary Malignant melanoma of unknown origin (HCC) documented in this encounter Orders Appointment Requests Count Last Ordered Date Fi rst Ordered Date ONCBCN CLINIC APPOINTMENT REQUEST 2 024 12/26/2023 ONCBCN LAB APPOINTMENT 2 02/06/202401/15 ONCBCN RETURN CHEMO 1.5HRS 2 02/06/2024 0 01/16/2024 documented in this encounter Care Teams Stamping Die Maker Relationship Specialty Start Date End Date Becky Conroy TITLE CLERK AUTOMOBILE [address] [place] [address] PCP - General Nurse Practitioner 07/06/23 Jose Chairez MD PhD [address] [facility] [address] [place], [place] [id number] Medical Oncologist/Soft Crab Shedder Medical Oncology 08/14/23 Evelin Lofton MD [address] [place] [address] Referring Physician Cardiovascular Disease 08/14/23 documented as of this encounter
--- OUTSIDE RECORDS SUMMARY | 2024-09-17 04:21 | XMS_ITS | Encounter Summary ---
Author Organization [facility] Address [address] [place] [address] Care Team Providers Care Flow Nurse Name Role Phone Becky Conroy NP Primary Care Provider [phone] Jose Chairez MD PhD Unavailable [phone]- [phone] Evelin Lofton MD Unavailable [phone] Reason for Referral * MRI/CAT/PET Scan (Routine) - Closed Specialty Diagnoses / Procedures Referred By Contac t Referred To Contact Radiology Diagnoses Malignant melanoma of unknown origin (HCC) Procedures PET/CT FDG Skull to Thigh Jose Chairez MD PhD [address] [address] Phone: tel: fax: [facility] Referral ID Status Reason Start Date Expiration Date Visits Re quested Visits Authorized [id number] Closed 12/26/2023 01/24/2025 2 2 Reason for Visit * MRI/CAT/PET Scan (Routine) - Closed Specialty Diagnoses / Procedures Referred By [facility] Referred To Contact Radiology Diagnoses Malignant melanoma of unknown origin (HCC) Procedures PET/CT FDG Skull to Thigh Jose Chairez MD PhD [address] [address] Phone: tel: fax: [facility] Referral ID Status Reason Start Date Expiration Date Visits Re quested Visits Authorized [id number] Closed 12/26/2023 01/24/2025 2 2 Encounter Details Date Type Department Care Team (Latest Contact Info) Description 03/18/2024 10:35 AM CDT - 03/18/2024 11:59 PM CDT Hospital Encounter [facility] Imaging [address] [place] [address] Malignant melanoma of unknown origin (HCC) Discharge [...] on file 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 ??The study was interpreted on the MyVR workstation. ??The mean liver SUV (reported for quality control assessor purposes) is 2.6. ?? The total scanned [...] FDG-PET/CT IMAGING DATE OF STUDY: 03/18/2024 SCANNER: [facility] RADIOPHARMACEUTICAL: 16.7 mCi F-18 Fluorodeoxyglucose (FDG) [...] obtained. The study was interpreted on the MyVR workstation. The mean liver SUV (reported for quality control assessor purposes) is 2.6. The total scanned area [...] Dose Rate Site fludeoxyglucose F-18 (FDG) injection 16.67 millicurie 16.67 millicurie, intravenous, Once in imaging, radiopharmaceutical, Starting on 03/18/24 at 1105, For 1 dose Given 03/18/2024 11:07 AM CDT 16.67 millicuries Right Hand documented in this encounter Orders Medications Ordered That Stalin ht Not Have Been Administered Count Last Ordered Date First Ordered Date fludeoxyglucose F-18 (FDG) i njection 16.67 millicurie 1 03/18/2024 documented in this encounter Care Teams Flow Nurse Relationship Specialty Start Date End Date Becky Conroy ANDROID PLATFORM DEVELOPER [address] [place] [address] PCP - General Nurse Practitioner 07/06/23 Jose Chairez MD PhD [address] [facility] [address] [place], [place] [id number] Medical Oncologist/Hearing Consultant Medical Oncology 08/14/23 Evelin Lofton MD [address] [place] [address] Referring Physician Cardiovascular Disease 08/14/23 documented as of this encounter
--- OUTSIDE RECORDS SUMMARY | 2024-09-17 04:21 | XMS_ITS | Encounter Summary ---
Author Organization [facility] Address [address] [place] [address] Phone Care Team Providers Care Program Director/Traffic Director Name Role Phone Becky Conroy NP Primary Care Provider [phone] Jose Chairez MD PhD Unavailable [phone] Evelin Lofton MD Unavailable [phone] Encounter Details Date Type Department Care Team (Late st Contact Info) Description 01/08/2024 Telephone [facility] Oncology [address] [place] [phone] sAya Giles RN Social History Tobacco Use Types [...] file 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 She wanted to make sure we were good with that. Instructed that it is fine with her going to a urologist. documented in this encounter Plan of Treatment Not on file documented as of this encounter Visit Diagnoses Not on filedocumented in this encounter Care Teams Program Director/Traffic Director Relationship Specialty Start Date End Date Becky Conroy NP [address] [place] [address] PCP - General Nurse Practitioner 07/06/23 Jose Chairez MD PhD [address] [facility] [address] [place] [address] Medical Oncologist/Grinding And Spraying Supervisor Medical Oncology 08/14/23 Evelin Lofton MD [address] [place] [address] Referring Physician Cardiovascular Disease 08/14/23 documented as of this encounter
--- OUTSIDE RECORDS SUMMARY | 2024-09-17 04:21 | XMS_ITS | Encounter Summary ---
Author Organization [facility] Address [address] [place] [address] Phone Care Team Providers Care Network Intern Name Role Phone Becky Conroy NP Primary Care Provider [phone] Jose Chairez MD PhD Unavailable [phone] Evelin Lofton MD Unavailable [phone] Reason for Referral * MRI/CAT/PET Scan (Routine) - Closed Specialty Diagnoses / Procedures Referred By Korey harkins Referred To Contact Radiology Diagnoses Malignant melanoma of unknown origin (HCC) Procedures PET/CT FDG Skull to Thigh Jose Chairez MD PhD [address] [facility] [address] [place] [address] Phone: tel: fax: [facility] Referral ID Status Reason Start Date Expiration Date Visits Re quested Visits Authorized [id number] Closed 03/19/2024 04/18/2025 1 2 Reason for Visit * Consultation (Routine) - Closed Specialty Diagnoses / Procedures Referred By Korey harkins Referred To Contact Oncology Diagnoses Malignant melanoma of unknown origin (HCC) Becky Conroy NP [address] [place] [address] Phone: tel: fax: [facility] 7th [place] [address] [place] [address] Phone: tel: fax: Referral ID Status Reason Start Date Expiration Date V isits Requested Visits Authorized [id number] Closed Specialty Services Required 07/06/2023 08/04/2024 12 12 Encounter Details Date Type Department Care Team (Late st Contact Info) Description 03/19/2024 10:30 AM CDT Office Visit [facility] [address] [place] [address] Daryl Glasgwo, TATA [address] [facility] [address] [place] [address] Malignant melanoma of unknown origin (HCC) (Primary [...] on file Legal Sex Female 1:54 AM SUPPORT SERVICES REP Gender Identity Not on file Sexual Orientation Not on file documented as of this encounter Last Filed Vital Signs Vital Sign Reading Time Taken Comments Blood Pressure 140/69 03/19/2024 10:09 AM CDT Pulse 70 03/19/2024 10:09 AM CDT Temperature 36.3 ??C (97.4 ??F) 03/19/2024 10:09 AM C DT Respiratory Rate 16 03/19/2024 10:09 AM CDT Oxygen Saturation - - Inhaled Oxygen Concentration - - Weight 65.8 kg (145 lb) 03/19/2024 10:09 AM CDT Height - - Body Mass Index 24.13 11/29/2023 8:23 AM CDT documented in this encounter Progress Notes * Daryl Glasgow 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 Pembrolizumab every 3 weeks. Overall doing well. Continued improvement of L arm - better range of motion. Some mild swelling in L breast but otherwise minimal lympedema. Some pink rash on arms that responds to topical steroid. No new or concerning lesions or masses. Had restaging PET imaging done yesterday on 03/18/2024 showing stable postoperative changes in the left axillary lymph node dissection with likely lymphedema within the left breast. No evidence of disease recurrence. Stable indeterminate 1.2 cm right middle lobe pulmonary nodule this date back to . I reviewed these results with her today in detail with plan to proceed today with treatment as scheduled. No Known Allergies Outpatient Encounter Medications as of 03/19/2024: clopidogreL (PLAVIX) 75 mg tablet, Take 1 [...] A DAY, Disp: 80 g, Rfl: 3 zinc gluconate [...] TOTAL) BY MOUTH NIGHTLY NEEDED FOR ITCHING (Patient not taking: Reported on 03/19/2024), Disp: 90 tablet, Rfl: 0 meloxicam (MOBIC) [...] on 03/19/2024), Disp: 30 tablet, Rfl: 3 Facility-Administered Encounter Medications as of 03/19/2024: [COMPLETED] fludeoxyglucose F-18 (FDG) injection 16.67 millicurie, 16.67 millicurie, intravenous, Once in imaging, Jose Chairez MD PhD, 16.67 millicurie at 03/18/24 1107 Review of Systems: Review of systems per HPI and otherwise all other systems are negative Performance Status: ECOG 0 Objective Vitals: Most Recent : BP: 140/69 Temp: 36.3 ??C (97.4 ??F) Temp src: Oral Pulse: 70 Resp: 16 Weight: 65.8 kg (145 lb) Physical Exam: General Appearance: Well-appearing, in no [...] 72 hour(s)) Comprehensive metabolic panel Collection Time: 03/19/24 9:55 AM Result Value Ref Range Sodium 139 135 - 145 mmol/L Potassium, pl 4.2 3.3 - 4.9 mmol/L Chloride 105 97 - 110 mmol/L CO2 25 22 - 32 mmol/L Anion gap 9 2 - 15 mmol/L BUN 18 6 - 25 mg/dL Creatinine 0.70 0.60 - 1.10 mg/dL Glucose 101 70 - 199 mg/dL Calcium 10.1 8.5 - 10.3 mg/dL Bilirubin, total 0.5 0.1 - 1.2 mg/dL Protein, pl 7.8 6.5 - 8.5 g/dL Albumin 4.4 3.5 - 5.0 g/dL Alk phos 55 40 - 130 Units/L ALT 15 7 - 45 Units/L AST 24 10 - 45 Units/L CBC with auto differential Collection Time: 03/19/24 9:55 AM Result Value Ref Range WBC 7.6 3.8 - 9.9 K/cumm Hgb 13.8 11.9 - 15.5 g/dL Hct 40.6 35.6 - 45.5 % Plt 246 150 - 400 K/cumm MPV 9.4 9.1 - 12.3 fL RBC 4.75 3.90 - 5.20 M/cumm MCV 85.5 81.3 - 96.4 fL MCH 29.1 27.1 - 33.3 pg MCHC 34.0 32.3 - 35.7 g/dL RDW CV 13.3 11.1 - 14.9 % RDW SD 41.2 35.7 - 48.1 fL NRBC abs 0.00 0.00 - 0.01 K/cumm Lactate dehydrogenase (LD) Collection Time: 03/19/24 9:55 AM Result Value Ref Range Lactate dehydrogenase (LDH) 229 100 - 250 Units/L Thyroid Function [place] Collection Time: 03/19/24 9:55 AM Result Value Ref Range TSH 0.48 0.30 - 4.20 mcIUnit/mL Differential, auto Collection Time: 03/19/24 9:55 AM Result Value Ref Range Neutrophil abs 4.1 1.5 - 6.5 K/cumm Imm gran abs 0.0 0.0 - 0.1 K/cumm Lymphocyte abs 2.6 0.8 - 3.3 K/cumm Monocyte abs 0.6 0.2 - 0.8 K/cumm Eosinophil abs 0.2 0.0 - 0.5 K/cumm Basophil abs 0.1 0.0 - 0.1 K/cumm Neutrophil pct 53.6 % Imm gran pct 0.3 % Lymphocyte pct 34.6 % Monocyte pct 8.1 % Eosinophil pct 2.4 % Basophil pct 1.0 % eGFR Collection Time: 03/19/24 9:55 AM Result Value Ref Range eGFR 87 >=60 mL/min/1.73 m2 Radiology: PET/CT FDG Skull [...] obtained. The study was interpreted on the [employer] workstation. The mean liver SUV (reported for quality process auditor purposes) is 2.6. The total scanned area [...] prior). Continue adjuvant pembro Restaging-had PET imaging yesterday on 03/18/2024 showing no evidence of metastatic disease or recurrence. Will continue to treat with immunotherapy every 3 weeks plan to re-stage again in 3 months. MRI brain - no evidence of melanoma mets, repeat annual. TSH - previously normal T4, but low TSH. Now with normal TSH - may be trend from hyper to hypo thyroid. Will continue to monitor and replete if needed. RTC 3 weeks for next cycle IO. Restaging again in 3 months.. All questions answered. Reiterated that I remain available for additional questions that may arise going forward. Israel Glasgow COMMUNITY PROGRAM ASSISTANT-C Nurse Practitioner Medical Oncology Educational Administrator completed by using [employer] Direct speaking software, therefore, transcriptionvariances may occur. [...] FDG-PET/CT IMAGING DATE OF STUDY: ??06/10/2024 SCANNER: [facility] RADIOPHARMACEUTICAL: 16.5 mCi F-18 Fluorodeoxyglucose (FDG) [...] obtained. ??The study was interpreted on the [employer] workstation. ??The mean liver SUV (reported for quality process auditor purposes) is 2.9. The total scanned [...] FDG-PET/CT IMAGING DATE OF STUDY: 06/10/2024 SCANNER: [facility] RADIOPHARMACEUTICAL: 16.5 mCi F-18 Fluorodeoxyglucose (FDG) [...] obtained. The study was interpreted on the [employer] workstation. The mean liver SUV (reported for quality process auditor purposes) is 2.9. The total scanned [...] F inal Result * Comprehensive metabolic panel (04/30/2024 8:54 AM CDT) Sodium 142 135 - 145 mmol/L Comment:Testing performed by : [facility], [address] [place] [address] Potassium, pl 4.0 3.3 - 4.9 mmol/L [facility] Chloride 102 97 - 110 mmol/L [facility] CO2 29 22 - 32 mmol/L [facility] Anion gap 11 2 - 15 mmol/L [facility] BUN 16 6 - 25 mg/dL [facility] Creatinine 0.61 0.60 - 1.10 mg/dL [facility] Glucose 92 70 - 199 mg/dL [facility] Comment: Interpretive Data Fasting glucose >/= [...] 2022. Calcium 10.0 8.5 - 10.3 mg/dL [facility] Bilirubin, total 0.5 0.1 - 1.2 mg/dL [facility] Protein, pl 7.5 6.5 - 8.5 g/dL [facility] Albumin 4.5 3.5 - 5.0 g/dL [facility] Alk phos 49 40 - 130 Units/L [facility] ALT 17 7 - 45 Units/L [facility] AST 22 10 - 45 Units/L [facility] Blood 04/30/2024 8:54 AM CDT 04/30/2024 8:54 AM CDT Jose Chairez MD PhD LAB BLOOD ORDERABLES Final Result [facility] Department [place] [address] * CBC with auto differential (04/30/2024 8:54 AM CDT) WBC 8.8 3.8 - 9.9 K/cumm Comment:Testing performed by : [address] [address] Hgb 14.1 11.9 - 15.5 g/dL [facility] Comment:Testing performed by : [address] [address] Hct 42.1 35.6 - 45.5 % [facility] Comment:Testing performed by : [address] [address] Plt 245 150 - 400 K/cumm [facility] Comment:Testing performed by : [address] [address] MPV 9.3 9.1 - 12.3 fL [facility] RBC 4.86 3.90 - 5.20 M/cumm [facility] MCV 86.6 81.3 - 96.4 fL [facility] MCH 29.0 27.1 - 33.3 pg [facility] MCHC 33.5 32.3 - 35.7 g/dL [facility] RDW CV 13.1 11.1 - 14.9 % [facility] RDW SD 41.2 35.7 - 48.1 fL [facility] NRBC abs 0.00 0.00 - 0.01 K/cumm [facility] Blood 04/30/2024 8:54 AM CDT 04/30/2024 8:54 AM CDT Jose Chairez MD PhD LAB BLOOD ORDERABLES Final Result Performing Organization Address [facility] Co de Phone Number [facility] Department [place] [address] * Lactate dehydrogenase (LD) (04/30/2024 8:54 AM CDT) Pathologist [facility] [place] Lactate dehydrogenase (LDH) 181 100 - 250 Units/L Comment:Testing performed by : [facility], [address] [facility] [address] Blood 04/30/2024 8:54 AM CDT 04/30/2024 8:54 AM CDT Jose Chairez MD PhD LAB BLOOD ORDERABLES Final Result Performing Organization Address [facility] de Phone Number [facility] Department [place] [address] * Thyroid Function [place] (04/30/2024 8:54 AM CDT) Pathologist [facility] TSH 0.71 0.30 - 4.20 mcIUnit/mL Blood 04/30/2024 8:54 AM CDT 04/30/2024 10:15 AM CDT Jose Chairez MD PhD LAB BLOOD ORDERABLES Final Result Performing Organization Address [facility] de Phone Number [facility] [place] [address] * (ABNORMAL) Comprehensive metabolic panel (04/09/2024 8:10 AM CDT) Pathologist [facility] [place] Sodium 140 135 - 145 mmol/L Comment:Testing performed by : [facility], [address] [facility] [address] Potassium, pl 4.2 3.3 - 4.9 mmol/L [facility] Chloride 105 97 - 110 mmol/L [facility] CO2 26 22 - 32 mmol/L [facility] Anion gap 9 2 - 15 mmol/L [facility] BUN 13 6 - 25 mg/dL [facility] Creatinine 0.58(L) 0.60 - 1.10 mg/dL [facility] Glucose 97 70 - 199 mg/dL [facility] Comment: Interpretive Data Fasting glucose >/= [...] 2022. Calcium 10.0 8.5 - 10.3 mg/dL [facility] Bilirubin, total 0.5 0.1 - 1.2 mg/dL [facility] Protein, pl 8.0 6.5 - 8.5 g/dL [facility] Albumin 4.6 3.5 - 5.0 g/dL [facility] Alk phos 51 40 - 130 Units/L [facility] ALT 16 7 - 45 Units/L [facility] AST 30 10 - 45 Units/L [facility] Blood 04/09/2024 8:10 AM CDT 04/09/2024 8:10 AM CDT us Jose Chairez MD PhD LAB BLOOD ORDERABLES Final Result [facility] [place] [address] * CBC with auto differential (04/09/2024 8:10 AM CDT) Pathologist [facility] [place] WBC 7.8 3.8 - 9.9 K/cumm Comment:Testing performed by : [facility], [address] [place] [address] Hgb 13.8 11.9 - 15.5 g/dL [facility] Comment:Testing performed by : [address] [address] Hct 40.7 35.6 - 45.5 % [facility] Comment:Testing performed by : [facility], [address] [place] [address] Plt 253 150 - 400 K/cumm [facility] Comment:Testing performed by : [address] [address] MPV 9.4 9.1 - 12.3 fL [facility] RBC 4.73 3.90 - 5.20 M/cumm [facility] MCV 86.0 81.3 - 96.4 fL [facility] MCH 29.2 27.1 - 33.3 pg [facility] MCHC 33.9 32.3 - 35.7 g/dL [facility] RDW CV 13.3 11.1 - 14.9 % [facility] RDW SD 41.8 35.7 - 48.1 fL [facility] NRBC abs 0.00 0.00 - 0.01 K/cumm [facility] Blood 04/09/2024 8:10 AM CDT 04/09/2024 8:10 AM CDT us Jose Chairez MD PhD LAB BLOOD ORDERABLES Final Result [facility] [place] [address] * (ABNORMAL) Lactate dehydrogenase (LD) (04/09/2024 8:10 AM CDT) Lactate dehydrogenase (LDH) 279(H) 100 - 250 Units/L Comment:Testing performed by : [address] [address] Blood 04/09/2024 8:10 AM CDT 04/09/2024 8:10 AM CDT Jose Chairez MD PhD LAB BLOOD ORDERABLES Final Result [facility] [place] [place] [address] * Thyroid Function [place] (04/09/2024 8:10 AM CDT) TSH 0.67 0.30 - 4.20 mcIUnit/mL Blood 04/09/2024 8:10 AM CDT 04/09/2024 9:11 AM CDT us Jose Chairez MD PhD LAB BLOOD ORDERABLES Final Result Performing Organization Address City/[facility] Co de Phone Number LAWRENCE CARDENAS [facility] [place] [place] [address] documented in this encounter Visit Diagnoses Diagnosis Malignant melanoma of unknown origin (HCC)- Primary Malignant melanoma of unknown origin (HCC) documented in this encounter Orders Appointment Requests Count Last Ordered Date Fi rst Ordered Date ONCBCN CLINIC APPOINTMENT REQUEST 2 024 03/19/2024 ON[facility]N LAB APPOINTMENT 2 04/30/202404/09 ONCBCN RETURN CHEMO 1.5HRS 2 04/30/2024 0 04/09/2024 documented in this encounter Care Teams Network Intern Relationship Specialty Start Date End Date Becky Conroy NP [address] [place] [address] PCP - General Nurse Practitioner 07/06/23 Jose Chairez MD PhD [address] [facility] [address] [place] [address] Medical Oncologist/Manager Of Engineering Medical Oncology 08/14/23 Evelin Lofton MD [address] [place] [address] Referring Physician Cardiovascular Disease 08/14/23 documented as of this encounter
--- OUTSIDE RECORDS SUMMARY | 2024-09-17 04:21 | XMS_ITS | Encounter Summary ---
Author Organization [facility] Healthcare Address [address] [place] [address] Care Team Providers Care Clinical Pharmacy Specialist Name Role Phone Becky Conroy NP Primary Care Provider [phone] Jose Chairez MD PhD Unavailable [phone] Evelin Lofton MD Unavailable [phone] Encounter Details Date Type Department Care Team (Late st Contact Info) Description 02/06/2024 9:35 AM CDT Lab 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 Gender Identity Not on file Sexual Orientation Not on file documented as of this encounter Plan of Treatment Not on file documented as of this encounter Procedures Procedure Name Priority Date/Time Associated Diagnosis Comments EGFR STAT 02/06/2024 9:38 AM CDT Malignant melanoma of unknown origin (HCC) DIFFERENTIAL AUTO Routine 02/06/2024 9:3 8 AM CDT Malignant melanoma of unknown origin (HCC) THYROID FUNCTION CASCADE Routine 02/06/2024 9:38 AM CDT Malignant melanoma of unknown origin (HCC) CBC WITH AUTO DIFFERENTIAL Routine 02/06/2024 9:38 AM CDT Malignant melanoma of unknown origin (HCC) T3, FREE Routine 02/06/2024 9:38 AM CDT T4, FREE Routine 02/06/2024 9:38 AM CDT Malignant melanoma of unknown origin (HCC) LACTATE DEHYDROGENASE Routine 02/06/2024 9:38 AM CDT Malignant melanoma of unknown origin (HCC) COMPREHENSIVE METABOLIC PANEL STAT 02/06/2024 9:38 AM CDT Malignant melanoma of unknown origin (HCC) documented in this encounter Results * T3, free (02/06/2024 9:38 AM CDT) Pathologist [facility] Free T3 3.2 2.0 - 4.4 pg/mL Blood 02/06/2024 9:38 AM CDT 02/06/2024 10:59 AM CDT Narrative [facility] - 02/06/2024 12:11 PM CDT This test was reflexed from a Free T4 result. us Jose Chairez MD PhD LAB BLOOD ORDERABLES Final Result [facility] Department [place] [address] * T4, free (02/06/2024 9:38 AM CDT) Pathologist [facility] Free T4 1.34 0.90 - 1.70 ng/dL Blood 02/06/2024 9:38 AM CDT 02/06/2024 10:59 AM CDT Narrative [facility] - 02/06/2024 11:43 AM CDT This test was reflexed from a TSH result. us Jose Chairez MD PhD LAB BLOOD ORDERABLES Final Result [facility] [place] [address] * eGFR (02/06/2024 9:38 AM CDT) eGFR 89 >=60 mL/min/1. 73 m2 Comment: Interpretive Data [...] interpretive data was last reviewed 2021. Blood 02/06/2024 9:38 AM CDT 02/06/2024 9:42 AM CDT us Jose Chairez MD PhD LAB BLOOD ORDERABLES Final Result [facility] [place] [address] * Differential, auto (02/06/2024 9:38 AM CDT) Neutrophil abs 4.4 1.5 - 6.5 K/cumm Comment:Testing performed by : [facility], [address] [place] [address] Imm gran abs 0.0 0.0 - 0.1 K/cumm [facility] Lymphocyte abs 2.3 0.8 - 3.3 K/cumm [facility] Monocyte abs 0.7 0.2 - 0.8 K/cumm [facility] Eosinophil abs 0.2 0.0 - 0.5 K/cumm [facility] Basophil abs 0.1 0.0 - 0.1 K/cumm [facility] Neutrophil pct 57.5 % [facility] Comment: Interpretive Data Percent cell count reference ranges are not reported, since discordance with absolute values may lead to misinterpretation of CBC data. Current Interpretive Data was last revised on 2017. Imm gran pct 0.1 % [facility] Comment: Interpretive Data Percent cell count reference ranges are not reported, since discordance with absolute values may lead to misinterpretation of CBC data. Current Interpretive Data was last revised on 2017. Lymphocyte pct 29.6 % [facility] Comment: Interpretive Data Percent cell count reference ranges are not reported, since discordance with absolute values may lead to misinterpretation of CBC data. Current Interpretive Data was last revised on 2017. Monocyte pct 9.1 % [facility] Comment: Interpretive Data Percent cell count reference ranges are not reported, since discordance with absolute values may lead to misinterpretation of CBC data. Current Interpretive Data was last revised on 2017. Eosinophil pct 3.0 % [facility] Comment: Interpretive Data Percent cell count reference ranges are not reported, since discordance with absolute values may lead to misinterpretation of CBC data. Current Interpretive Data was last revised on 2017. Basophil pct 0.7 % [facility] Comment: Interpretive Data Percent cell count reference ranges are not reported, since discordance with absolute values may lead to misinterpretation of CBC data. Current Interpretive Data was last revised on 2017. Blood 02/06/2024 9:38 AM CDT 02/06/2024 9:42 AM CDT Jose Chairez MD PhD LAB BLOOD ORDERABLES Final Result Performing Organization Address City/[facility] Co de Phone Number [facility] [place] [address] * (ABNORMAL) Thyroid Function [place] (02/06/2024 9:38 AM CDT) TSH 0.03(L) 0.30 - 4.20 mcIUnit/mL Blood 02/06/2024 9:38 AM CDT 02/06/2024 10:47 AM CDT Jose Chairez MD PhD LAB BLOOD ORDERABLES Final Result Performing Organization Address [facility] de Phone Number [facility] [place] [address] * Lactate dehydrogenase (LD) (02/06/2024 9:38 AM CDT) Lactate dehydrogenase (LDH) 202 100 - 250 Units/L Comment:Testing performed by : [facility], [address] [place] [address] Blood 02/06/2024 9:38 AM CDT 02/06/2024 9:42 AM CDT Jose Chairez MD PhD LAB BLOOD ORDERABLES Final Result Performing Organization Address [facility] Co de Phone Number [facility] Department of Laboratories [place], [place] [id number] * CBC with auto differential (02/06/2024 9:38 AM CDT) [facility] WBC 7.7 3.8 - 9.9 K/cumm Comment:Testing performed by : [address] [address] Hgb 13.4 11.9 - 15.5 g/dL [facility] Comment:Testing performed by : [address] [address] Hct 40.0 35.6 - 45.5 % [facility] Comment:Testing performed by : [address] [address] Plt 252 150 - 400 K/cumm [facility] Comment:Testing performed by : [address] [address] MPV 9.3 9.1 - 12.3 fL [facility] RBC 4.59 3.90 - 5.20 M/cumm [facility] MCV 87.1 81.3 - 96.4 fL [facility] MCH 29.2 27.1 - 33.3 pg [facility] MCHC 33.5 32.3 - 35.7 g/dL [facility] RDW CV 13.2 11.1 - 14.9 % [facility] RDW SD 41.6 35.7 - 48.1 fL [facility] NRBC abs 0.00 0.00 - 0.01 K/cumm [facility] Blood 02/06/2024 9:38 AM CDT 02/06/2024 9:42 AM CDT us Jose Chairez MD PhD LAB BLOOD ORDERABLES Final Result [facility] [place] [address] * Comprehensive metabolic panel (02/06/2024 9:38 AM CDT) [facility] Sodium 143 135 - 145 mmol/L Comment:Testing performed by : [address] [address] Potassium, pl 4.0 3.3 - 4.9 mmol/L [facility] Chloride 108 97 - 110 mmol/L [facility] CO2 26 22 - 32 mmol/L [facility] Anion gap 9 2 - 15 mmol/L [facility] BUN 19 6 - 25 mg/dL [facility] Creatinine 0.65 0.60 - 1.10 mg/dL [facility] Glucose 102 70 - 199 mg/dL [facility] Comment: Interpretive Data Fasting glucose >/= 126 [...] 2022. Calcium 10.0 8.5 - 10.3 mg/dL [facility] Bilirubin, total 0.4 0.1 - 1.2 mg/dL [facility] Protein, pl 7.5 6.5 - 8.5 g/dL [facility] Albumin 4.5 3.5 - 5.0 g/dL [facility] Alk phos 51 40 - 130 Units/L [facility] ALT 16 7 - 45 Units/L [facility] AST 21 10 - 45 Units/L [facility] Blood 02/06/2024 9:38 AM CDT 02/06/2024 9:42 AM CDT us Jose Chairez MD PhD LAB BLOOD ORDERABLES Final Result [facility] Department [place] [address] documented in this encounter Visit Diagnoses Diagnosis Malignant melanoma of unknown origin (HCC) documented in this encounter Care Teams Clinical Pharmacy Specialist Relationship Specialty Start Date End Date Becky Conroy NP [address] [place] [address] PCP - General Nurse Practitioner 07/06/23 Jose Chairez MD PhD [address] [facility] [address] [place] [address] Medical Oncologist/Cpas Medical Oncology 08/14/23 Evelin Lofton MD [address] [place] [address] Referring Physician Cardiovascular Disease 08/14/23 documented as of this encounter
--- OUTSIDE RECORDS SUMMARY | 2024-09-17 04:21 | XMS_ITS | Encounter Summary ---
Author Organization [facility] Address [address] [place] [address] Phone Care Team Providers Care Piercing Machine Operator Name Role Phone Becky Conroy NP Primary Care Provider [phone] Jose Chairez MD PhD Unavailable [phone] Evelin Lofton MD Unavailable [phone] Reason for Visit * Reason Comments Immunotherapy * Episode Based Medications (Routine) - Closed Specialty Diagnoses / Procedures Referred By Contac t Referred To Contact Oncology Diagnoses Malignant melanoma of unknown origin (HCC) Jose Chairez MD PhD [address] [facility] [address] [place] [address] Phone: tel: fax: [facility] [address] [place] [phone] Phone: tel: fax: Referral ID Status Reason Start Date Expiration Date Visits Re quested Visits Authorized [id number] Closed 05/27/2024 09/04/2024 1 30 Encounter Details Date Type Department Care Team (Late st Contact Info) Description 01/16/2024 2:15 PM CDT Infusion [facility] Oncology [address] [place] [phone] Malignant melanoma of unknown origin (HCC) (Primary [...] on file 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 Gender Identity Not on file Sexual Orientation Not on file documented as of this encounter Last Filed Vital Signs Vital Sign Reading Time Taken Comments Blood Pressure 135/66 01/16/2024 1:33 PM CDT Pulse 80 01/16/2024 1:33 PM CDT Temperature 36.3 ??C (97.4 ??F) 01/16/2024 1:33 PM CD T Respiratory Rate 18 01/16/2024 1:33 PM CDT Oxygen Saturation 99% 01/16/2024 1:33 PM CDT Inhaled Oxygen Concentration - - Weight 65.3 kg (143 lb 14.4 oz) 01/16/2024 1:33 PM CDT Height - - Body Mass Index 23.95 11/29/2023 8:23 AM CDT documented in this encounter Nursing Notes * Erin Esteban RN - 01/16/2024 2:15 PM CDT Oncology Nursing Note [facility] ONCOLOG[facility] Magui Baker is a 78 y.o. female who presents for treatment cycle 8 day 1of keytruda Pre-treatment Nursing Assessment Nursing Assessment LOC: Awake, Alert Fatigue: Occassional Any falls since your last visit?: No Orientation: Oriented x4 Behavior: Calm Speech: Clear Language: No aphasia Vision: At baseline Peripheral Neuropathy: No Oral Mucosa Grade: Normal (0) Pt states has potential to be ?: N/A Shortness of Breath?: No Cough: Absent Appetite: Good Nausea/Vomiting: No Diarrhea: No Constipation: No Skin Condition/Temp: Dry, Warm, Rash Rash Location: arms and legs. per pt using cream and md is aware. Swelling: No BP: 135/66 Temp: 36.3 ??C (97.4 ??F) Temp src: Oral Pulse: 80 Resp: 18 SpO2: 99 % Weight: 65.3 kg (143 lb 14.4 oz) Pain Score: 0 - No pain Treatment [...] treatment plan. Discharge Mode: Ambulatory Accompanied by: Spouse Discharged To: Home documented in this encounter [...] 100 mL IVPB 200 mg, intravenous, at 216 mL/hr, Administer over 30 Minutes, Once, On Mon01/16/24 at 1445, For 1 dose, Use 0.2-5 micron filter, low-sorbing, low protein binding.Indications:Malignant melanoma of unknown origin (HCC) New Bag 01/16/2024 2:26 PM CDT 200 mg 216 mL/hr documented in this encounter Orders Medications Ordered That Stalin ht Not Have Been Administered Count Last Ordered Date First Ordered Date pembrolizumab (KEYTRUDA) 200 mg in sodium chloride 0.9% 100 mL IVPB 1 01/16/2024 Nursing Count Last Ordered Date First Orde red Date ONCBCN TREATMENT PARAMETERS 3 1 01/16/2024 Appointment Requests Count Last Ordered Date Fi rst Ordered Date ONCBCN RETURN CHEMO 1.5HRS 1 01/16/2024 documented in this encounter Care Teams Piercing Machine Operator Relationship Specialty Start Date End Date Becky Conroy NP [address] [place] [address] PCP - General Nurse Practitioner 07/06/23 Jose Chairez MD PhD [address] [facility] [address] [place], [place] [id number] Medical Oncologist/Regulatory Compliance Coordinator Medical Oncology 08/14/23 Evelin Lofton MD [address] [place] [address] Referring Physician Cardiovascular Disease 08/14/23 documented as of this encounter
--- OUTSIDE RECORDS SUMMARY | 2024-09-17 04:21 | XMS_ITS | Encounter Summary ---
Author Organization [facility] Address [address] [place] [address] Phone Care Team Providers Care Freelance Writer Name Role Phone Becky Conroy NP Primary Care Provider [phone] Jose Chairez MD PhD Unavailable [phone] Evelin Lofton MD Unavailable [phone] Reason for Visit * Episode Based Medications (Routine) - Closed Specialty Diagnoses / Procedures Referred By Contac t Referred To Contact Oncology Diagnoses Malignant melanoma of unknown origin (HCC) Jose Chairez MD PhD [address] [facility] [address] [place] [address] Phone: tel: fax: [facility] [address] [place] [phone] Phone: tel: fax: Referral ID Status Reason Start Date Expiration Date Visits Re quested Visits Authorized [id number] Closed 05/27/2024 09/04/2024 1 30 Encounter Details Date Type Department Care Team (Late st Contact Info) Description 12/26/2023 10:[address] 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 Gender Identity Not on file Sexual Orientation Not on file documented as of this encounter Plan of Treatment Not on file documented as of this encounter Visit Diagnoses Diagnosis Malignant melanoma of unknown origin (HCC) documented in this encounter Orders Appointment Requests Count Last Ordered Date Fi rst Ordered Date ONCBCN LAB APPOINTMENT 1 12/26/2023 documented in this encounter Care Teams Freelance Writer Relationship Specialty Start Date End Date Becky Conroy NP [address] [place] [address] PCP - General Nurse Practitioner 07/06/23 Jose Chairez MD PhD [address] [facility] [address] [place] [address] Medical Oncologist/Dot Compliance Specialist Medical Oncology 08/14/23 Evelin Lofton MD [address] [place] [address] Referring Physician Cardiovascular Disease 08/14/23 documented as of this encounter
--- OUTSIDE RECORDS SUMMARY | 2024-09-17 04:21 | XMS_ITS | Encounter Summary ---
Author Organization [facility] Address [address] [place] [address] Phone Care Team Providers Care Lottery Sales Clerk Name Role Phone Becky Conroy NP Primary Care Provider [phone] Jose Chairez MD PhD Unavailable [phone] Evlein Lofton MD Unavailable [phone] Reason for Visit * Reason Comments Immunotherapy * Episode Based Medications (Routine) - Closed Specialty Diagnoses / Procedures Referred By Contac t Referred To Contact Oncology Diagnoses Malignant melanoma of unknown origin (HCC) Joes Chairez MD PhD [address] [facility] [address] [place] [address] Phone: tel: fax: 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 female who presents for treatment cycle 7, day 1 of Pembrolizumab. Pre-treatment Nursing Assessment Nursing Assessment LOC: Awake, Alert Constitutional: Fatigue Fatigue: Occassional Any falls since your last visit?: No Orientation: Oriented x4 Behavior: Calm Speech: Clear Language: No aphasia Vision: At baseline Peripheral Neuropathy: No Oral Mucosa Grade: Normal (0) Pt states has potential to be ?: N/A Shortness of Breath?: No Cough: Absent Appetite: Fair Nausea/Vomiting: No Diarrhea: No Constipation: No Last BM Date: 12/26/23 Skin Condition/Temp: Warm, Dry Swelling: Yes Swelling location: LLE (minimal, resolves in morning) BP: 136/65 Temp: 36.4 ??C (97.6 ??F) Pulse: 64 Resp: 17 SpO2: 98 % Weight: 63.8 kg (140 lb 11.2 oz) Pain Score: 0 - No pain [...] by: Self and Family Discharged To: Home in stable condition. documented in this encounter Plan of Treatment [...] mL/hr, Administer over 30 Minutes, Once, On Mon12/26/23 at 1245, For 1 dose, Use 0.2-5 micron filter, low-sorbing, low protein binding.Indications:Malignan t melanoma of unknown origin (HCC) New Bag 12/26/2023 12:35 PM CDT 200 mg 216 mL/hr documented in this encounter Orders Medications Ordered That Stalin ht Not Have Been Administered Count Last Ordered Date First Ordered Date pembrolizumab (KEYTRUDA) 200 mg in sodium chloride 0.9% 100 mL IVPB 1 12/26/2023 Nursing Count Last Ordered Date First Orde red Date ONCBCN TREATMENT PARAMETERS 3 1 12/26/2023 Appointment Requests Count Last Ordered Date Fi rst Ordered Date ONCBCN RETURN CHEMO 1.5HRS 1 12/26/2023 documented in this encounter Care Teams Lottery Sales Clerk Relationship Specialty Start Date End Date Becky Conroy NP [address] [place] [address] PCP - General Nurse Practitioner 07/06/23 Jose Chairez MD PhD [address] [facility] [address] [place] [address] Medical Oncologist/Imagery Analyst Medical Oncology 08/14/23 Evelin Lofton MD [address] [place] [address] Referring Physician Cardiovascular Disease 08/14/23 documented as of this encounter
--- OUTSIDE RECORDS SUMMARY | 2024-09-17 04:21 | XMS_ITS | Encounter Summary ---
Author Organization [facility] Address [address] [place] [address] Phone Care Team Providers Care Forms Analysis Manager Name Role Phone Becky Conroy NP Primary Care Provider [phone] Jose Chairez MD PhD Unavailable [phone]- [phone] Evelin Lofton MD Unavailable [phone] Reason for Visit * Reason Comments Immunotherapy Encounter Details Date Type Department Care Team (Late st Contact Info) Description 02/27/2024 8:45 AM CDT Infusion [facility] Oncology [address] [place] [address] Malignant melanoma of unknown origin (HCC) (Primary [...] on file 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 Gender Identity Not on file Sexual Orientation Not on file documented as of this encounter Last Filed Vital Signs Vital Sign Reading Time Taken Comments Blood Pressure 162/78 02/27/2024 8:00 AM CDT Pulse 61 02/27/2024 8:00 AM CDT Temperature 36.7 ??C (98.1 ??F) 02/27/2024 8:00 AM CD T Respiratory Rate 18 02/27/2024 8:00 AM CDT Oxygen Saturation 95% 02/27/2024 8:00 AM CDT Inhaled Oxygen Concentration - - Weight 64.8 kg (142 lb 12.8 oz) 02/27/2024 8:00 AM CDT Height - - Body Mass Index 23.76 11/29/2023 8:23 AM CDT documented in this encounter Nursing Notes * Raegan Lindsey, RN - 02/27/2024 8:45 AM CDT Oncology Nursing Note [facility] ONCOLOGY Magui Baker is a 78 y.o. female who presents for treatment cycle 10, day 1 of pembrolizumab. Pre-treatment Nursing Assessment Nursing Assessment LOC: Alert, Awake Constitutional: Fatigue Fatigue: None Any falls since your last visit?: No Orientation: Oriented x4 Behavior: Calm Speech: Clear Language: No aphasia Vision: At baseline Other neuro symptoms: Other: (comment) (none) Peripheral Neuropathy: No Oral Mucosa Grade: Normal (0) Pt states has potential to be ?: No Shortness of Breath?: No Cough: Non-productive Appetite: Fair Have You Recently Lost Weight Without Trying?: No Have you been eating poorly because of a decreased appetite?: No Malnutrition Screening Tool (MST) Score: 0 Nausea/Vomiting: No Diarrhea: No Constipation: No Last BM Date: 02/27/24 Skin Condition/Temp: Rash Rash Location: denies Swelling: No Additional Notes: Prior to chemotherapy administration: reviewed with patient/family the goal of chemotherapy regimen, the method of administration, and potential side effects. Chemotherapy consent verified. BP: 162/78 Temp: 36.7 ??C (98.1 ??F) Temp src: Oral Pulse: 61 Resp: 18 SpO2: 95 % Weight: 64.8 kg (142 lb 12.8 oz) Pain Score: 0 - No pain Lab Results Component Value Date WBC 7.9 02/27/2024 HGB 13.8 02/27/2024 HCT 41.3 02/27/2024 MCV 86.8 02/27/2024 LABPLAT 224 02/27/2024 Chemistry Lab Results Component Value Date SODIUM 143 02/27/2024 POTASSIUM 3.8 02/27/2024 CHLORIDE 105 02/27/2024 CO2 29 02/27/2024 ANIONGAP 9 02/27/2024 BUNSER 13 02/27/2024 CREATININE 0.61 02/27/2024 GLUCOSE 89 02/27/2024 CALCIUM 10.2 02/27/2024 BILITOT 0.4 02/27/2024 ALBUMIN 4.4 02/27/2024 GFRNAA 90 02/27/2024 ALKPHOS 51 02/27/2024 AST 24 02/27/2024 ALT 18 02/27/2024 Lab Results Component Value Date NEUTROABS 4.7 02/27/2024 Treatment Patient: met treatment parameters Pre blood return: Brisk Magui Baker tolerated treatment well. Patient was frequently observed and monitored throughout the administration of their treatment. Additional Notes: Chemotherapy infusion complete, Magui Baker tolerated without complaints of discomfort at this time. Denies any hypersensitivity reactions. Post blood return: Brisk IV access post infusion: NS Patient Education Treatment Education: Information/teaching given to patient including process and procedure related to today's visit. Response: Verbalizes understanding. Discharge Plan Discharge instructions given to patient. Future appointments given and reviewed with treatment plan. Discharge Mode: Ambulatory Accompanied by: Self and Family Discharged To: Home documented in this [...] mL/hr, Administer over 30 Minutes, Once, On Mon02/27/24 at 0845, For 1 dose, Use 0.2-5 micron filter, low-sorbing, low protein binding.Indications:Maligna nt melanoma of unknown origin (HCC) New Bag 02/27/2024 8:44 AM CDT 200 mg 216 mL/hr sodium chloride 0.9% flush 10 mL 10 mL, intravenous, As needed, line care, Starting on Mon02/27/24 at 0823, Flush pre and post IV catheter use.Indications:Malignant melanoma of unknown origin (HCC) Given 02/27/2024 8:37 AM CDT 10 mL sodium chloride 0.9% infusion 20 mL/hr, intravenous, As needed, As needed as back up fluid for infusions, Starting on Mon02/27/24 at 0823Indications:Malignant melanoma of unknown origin (HCC) New Bag 02/27/2024 8:37 AM CDT 20 mL/hr 20 mL/hr documented in this encounter Orders Nursing Count Last Ordered Date First Orde red Date ONCBCN TREATMENT PARAMETERS 3 1 02/27/2024 Appointment Requests Count Last Ordered Date Fi rst Ordered Date ONCBCN RETURN CHEMO 1.5HRS 1 02/27/2024 documented in this encounter Care Teams Forms Analysis Manager Relationship Specialty Start Date End Date Becky Conroy NP [address] [place] [address] PCP - General Nurse Practitioner 07/06/23 Jose Chairez MD PhD [address] [facility] [address] [place] [address] Medical Oncologist/Analytical Clerk Medical Oncology 08/14/23 Evelin Lofton MD [address] [place] [address] Referring Physician Cardiovascular Disease 08/14/23 documented as of this encounter
--- OUTSIDE RECORDS SUMMARY | 2024-09-17 04:21 | XMS_ITS | Encounter Summary ---
Author Organization [facility] Address [address] [place] [address] Phone Care Team Providers Care Operating Systems Specialist Name Role Phone Becky Conroy NP Primary Care Provider [phone] Jose Chairez MD PhD Unavailable [phone] Evelin Lofton MD Unavailable [phone] Reason for Visit * Episode Based Medications (Routine) - Closed Specialty Diagnoses / Procedures Referred By Contac t Referred To Contact Oncology Diagnoses Malignant melanoma of unknown origin (HCC) Jose Chairez MD PhD [address] [facility] [address] [place] [address] Phone: tel: fax: [facility] [address] [place] [address] Phone: tel: fax: Referral ID Status Reason Start Date Expiration Date Visits Re quested Visits Authorized [id number] Closed 05/27/2024 09/04/2024 1 30 Encounter Details Date Type Department Care Team (Late st Contact Info) Description 02/06/2024 10:15 AM CDT Lab [facility] Oncology [address] [place] [phone] Malignant melanoma of unknown origin (HCC) Social [...] on file 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 Gender Identity Not on file Sexual Orientation Not on file documented as of this encounter Plan of Treatment Not on file documented as of this encounter Visit Diagnoses Diagnosis Malignant melanoma of unknown origin (HCC) documented in this encounter Orders Appointment Requests Count Last Ordered Date Fi rst Ordered Date ONCBCN LAB APPOINTMENT 1 02/06/2024 documented in this encounter Care Teams Operating Systems Specialist Relationship Specialty Start Date End Date Becky Conroy NP [address] [place] [address] PCP - General Nurse Practitioner 07/06/23 Jose Chairez MD PhD [address] [facility] [address] [place] [address] Medical Oncologist/Embedded Software Test Engineer Medical Oncology 08/14/23 Evelin Lofton MD [address] [place] [address] Referring Physician Cardiovascular Disease 08/14/23 documented as of this encounter
--- OUTSIDE RECORDS SUMMARY | 2024-09-17 04:21 | XMS_ITS | Encounter Summary ---
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 Gender Identity Not on file Sexual Orientation Not on file documented as of this encounter Plan of Treatment Not on file documented as of this encounter Procedures Procedure Name Priority Date/Time Associated Diagnosis Comments EGFR STAT 02/27/2024 7:49 AM CDT Malignant melanoma of unknown origin (HCC) DIFFERENTIAL AUTO Routine 02/27/2024 7:4 9 AM CDT Malignant melanoma of unknown origin (HCC) THYROID FUNCTION CASCADE Routine 02/27/2024 7:49 AM CDT Malignant melanoma of unknown origin (HCC) CBC WITH AUTO DIFFERENTIAL Routine 02/27/2024 7:49 AM CDT Malignant melanoma of unknown origin (HCC) T3, FREE Routine 02/27/2024 7:49 AM CDT T4, FREE Routine 02/27/2024 7:49 AM CDT Malignant melanoma of unknown origin (HCC) LACTATE DEHYDROGENASE Routine 02/27/2024 7:49 AM CDT Malignant melanoma of unknown origin (HCC) COMPREHENSIVE METABOLIC PANEL STAT 02/27/2024 7:49 AM CDT Malignant melanoma of unknown origin (HCC) documented in this encounter Results * T3, free (02/27/2024 7:49 AM CDT) Pathologist [facility] Free T3 3.2 2.0 - 4.4 pg/mL Blood 02/27/2024 7:49 AM CDT 02/27/2024 9:28 AM CDT Narrative [facility] - 02/27/2024 10:49 AM CDT This test was reflexed from a Free T4 result. us Jose Chairez MD PhD LAB BLOOD ORDERABLES Final Result [facility] [address] [facility] Department [place] [address] * T4, free (02/27/2024 7:49 AM CDT) Pathologist [facility] Free T4 1.26 0.90 - 1.70 ng/dL Blood 02/27/2024 7:49 AM CDT 02/27/2024 9:28 AM CDT Narrative [facility] - 02/27/2024 10:19 AM CDT This test was reflexed from a TSH result. us Jose Chairez MD PhD LAB BLOOD ORDERABLES Final Result [facility] [address] [facility] Department [place] [address] * eGFR (02/27/2024 7:49 AM CDT) eGFR 90 >=60 mL/min/1. 73 m2 Comment: Interpretive Data [...] interpretive data was last reviewed 2021. Blood 02/27/2024 7:49 AM CDT 02/27/2024 7:49 AM CDT us Jose Chairez MD PhD LAB BLOOD ORDERABLES Final Result [facility] [address] [facility] Department [place] [address] * Differential, auto (02/27/2024 7:49 AM CDT) Neutrophil abs 4.7 1.5 - 6.5 K/cumm Comment:Testing performed by : [facility], [address] [place] [id number] Imm gran abs 0.0 0.0 - 0.1 K/cumm [facility] Lymphocyte abs 2.3 0.8 - 3.3 K/cumm [facility] Monocyte abs 0.6 0.2 - 0.8 K/cumm [facility] Eosinophil abs 0.2 0.0 - 0.5 K/cumm [facility] Basophil abs 0.1 0.0 - 0.1 K/cumm [facility] Neutrophil pct 59.9 % [facility] Comment: Interpretive Data Percent cell count reference ranges are not reported, since discordance with absolute values may lead to misinterpretation of CBC data. Current Interpretive Data was last revised on 2017. Imm gran pct 0.3 % [facility] Comment: Interpretive Data Percent cell count reference ranges are not reported, since discordance with absolute values may lead to misinterpretation of CBC data. Current Interpretive Data was last revised on 2017. Lymphocyte pct 29.0 % [facility] Comment: Interpretive Data Percent cell count reference ranges are not reported, since discordance with absolute values may lead to misinterpretation of CBC data. Current Interpretive Data was last revised on 2017. Monocyte pct 7.8 % [facility] Comment: Interpretive Data [...] was last revised on 2017. Basophil pct 0.9 % [facility] Comment: Interpretive Data Percent cell count reference ranges are not reported, since discordance with absolute values may lead to misinterpretation of CBC data. Current Interpretive Data was last revised on 2017. Blood 02/27/2024 7:49 AM CDT 02/27/2024 7:49 AM CDT Jose Chairez MD PhD LAB BLOOD ORDERABLES Final Result [facility] [address] [facility] Department [place] [address] * Comprehensive metabolic panel (02/27/2024 7:49 AM CDT) Sodium 143 135 - 145 mmol/L Comment:Testing performed by : [facility], [address] [place] [address] Potassium, pl 3.8 3.3 - 4.9 mmol/L [facility] Chloride 105 97 - 110 mmol/L [facility] CO2 29 22 - 32 mmol/L [facility] Anion gap 9 2 - 15 mmol/L [facility] BUN 13 6 - 25 mg/dL [facility] Creatinine 0.61 0.60 - 1.10 mg/dL [facility] Glucose 89 70 - 199 mg/dL [facility] [...] 2022. Calcium 10.2 8.5 - 10.3 mg/dL [facility] Bilirubin, total 0.4 0.1 - 1.2 mg/dL [facility] Protein, pl 7.6 6.5 - 8.5 g/dL [facility] Albumin 4.4 3.5 - 5.0 g/dL [facility] Alk phos 51 40 - 130 Units/L [facility] ALT 18 7 - 45 Units/L [facility] AST 24 10 - 45 Units/L [facility] Blood 02/27/2024 7:49 AM CDT 02/27/2024 7:49 AM CDT Jose Chairez MD PhD LAB BLOOD ORDERABLES Final Result [facility] [address] [facility] Department [place] [address] * CBC with auto differential (02/27/2024 7:49 AM CDT) WBC 7.9 3.8 - 9.9 K/cumm Comment:Testing performed by : [address] [address] Hgb 13.8 11.9 - 15.5 g/dL [facility] Comment:Testing performed by : [address] [address] Hct 41.3 35.6 - 45.5 % [facility] Comment:Testing performed by : [address] [address] Plt 224 150 - 400 K/cumm [facility] Comment:Testing performed by : [address] [address] MPV 9.3 9.1 - 12.3 fL [facility] RBC 4.76 3.90 - 5.20 M/cumm [facility] MCV 86.8 81.3 - 96.4 fL [facility] MCH 29.0 27.1 - 33.3 pg [facility] MCHC 33.4 32.3 - 35.7 g/dL [facility] RDW CV 13.1 11.1 - 14.9 % [facility] RDW SD 41.3 35.7 - 48.1 fL [facility] NRBC abs 0.00 0.00 - 0.01 K/cumm [facility] Blood 02/27/2024 7:49 AM CDT 02/27/2024 7:49 AM CDT Jose Chairez MD PhD LAB BLOOD ORDERABLES Final Result Performing Organization Address [facility] [place] [address] * Lactate dehydrogenase (LD) (02/27/2024 7:49 AM CDT) Lactate dehydrogenase (LDH) 197 100 - 250 Units/L Comment:Testing performed by : [address] [address] Blood 02/27/2024 7:49 AM CDT 02/27/2024 7:49 AM CDT Jose Chairez MD PhD LAB BLOOD ORDERABLES Final Result Performing Organization Address [facility] [place] [address] * (ABNORMAL) Thyroid Function [place] (02/27/2024 7:49 AM CDT) TSH 0.14(L) 0.30 - 4.20 mcIUnit/mL Blood 02/27/2024 7:49 AM CDT 02/27/2024 9:11 AM CDT Jose Chairez MD PhD LAB BLOOD ORDERABLES Final Result Performing Organization Address City/[facility] [place] [address] documented in this encounter Visit Diagnoses Diagnosis Malignant melanoma of unknown origin (HCC) documented in this encounter Care Teams Bag Machine Adjuster Relationship Specialty Start Date End Date Becky Conroy NP [address] [place] [address] PCP - General Nurse Practitioner 07/06/23 Jose Chairez MD PhD [address] [facility] [address] [place] [address] Medical Oncologist/Buyer Renter Medical Oncology 08/14/23 Evelin Lofton MD [address] [place] [address] Referring Physician Cardiovascular Disease 08/14/23 documented as of this encounter
--- OUTSIDE RECORDS SUMMARY | 2024-09-17 04:21 | XMS_ITS | Encounter Summary ---
Author Organization [facility] Healthcare Address [address] [place] [address] Care Team Providers Care Rn Ent Name Role Phone Becky Conroy NP Primary Care Provider [phone] Jose Chairez MD PhD Unavailable [phone]- [phone] Evelin Lofton MD Unavailable [phone] Reason for Visit * Episode Based Medications (Routine) - Closed Specialty Diagnoses / Procedures Referred By Contmarques t Referred To Contact Oncology Diagnoses Malignant melanoma of unknown origin (HCC) Jose Chairez MD PhD [address] [facility] [address] [place] [address] Phone: tel: fax: [address] [address] Phone: tel: fax: Referral ID Status Reason Start Date Expiration Date Visits Re quested Visits Authorized [id number] Closed 05/27/2024 09/04/2024 1 30 Encounter Details Date Type Department Care Team (Late st Contact Info) Description 03/19/2024 10:00 AM CDT Lab [address] [address] Malignant melanoma of unknown origin [...] on file 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 Gender Identity Not on file Sexual Orientation Not on file documented as of this encounter Plan of Treatment Not on file documented as of this encounter Procedures Procedure Name Priority Date/Time Associated Diagnosis Comments EGFR STAT 03/19/2024 9:55 AM CDT Malignant melanoma of unknown origin (HCC) DIFFERENTIAL AUTO Routine 03/19/2024 9:5 5 AM CDT Malignant melanoma of unknown origin (HCC) THYROID FUNCTION CASCADE Routine 03/19/2024 9:55 AM CDT Malignant melanoma of unknown origin (HCC) CBC WITH AUTO DIFFERENTIAL Routine 03/19/2024 9:55 AM CDT Malignant melanoma of unknown origin (HCC) LACTATE DEHYDROGENASE Routine 03/19/2024 9:55 AM CDT Malignant melanoma of unknown origin (HCC) COMPREHENSIVE METABOLIC PANEL STAT 03/19/2024 9:55 AM CDT Malignant melanoma of unknown origin (HCC) documented in this encounter Results * eGFR (03/19/2024 9:55 AM CDT) eGFR 87 >=60 mL/min/1. 73 [...] interpretive data was last reviewed 2021. Blood 03/19/2024 9:55 AM CDT 03/19/2024 9:55 AM CDT us Jose Chairez MD PhD LAB BLOOD ORDERABLES Final Result [facility] Department [place] [address] * Differential, auto (03/19/2024 9:55 AM CDT) Pathologist [facility] Neutrophil abs 4.1 1.5 - 6.5 K/cumm Comment:Testing performed by : [facility], [address] [place] [address] Imm gran abs 0.0 0.0 - 0.1 K/cumm [facility] Lymphocyte abs 2.6 0.8 - 3.3 K/cumm [facility] Monocyte abs 0.6 0.2 - 0.8 K/cumm [facility] Eosinophil abs 0.2 0.0 - 0.5 K/cumm [facility] Basophil abs 0.1 0.0 - 0.1 K/cumm [facility] Neutrophil pct 53.6 % [facility] Comment: Interpretive Data Percent cell count reference ranges are not reported, since discordance with absolute values may lead to misinterpretation of CBC data. Current Interpretive Data was last revised on 2017. Imm gran pct 0.3 % [facility] Comment: Interpretive Data Percent cell count reference ranges are not reported, since discordance with absolute values may lead to misinterpretation of CBC data. Current Interpretive Data was last revised on 2017. Lymphocyte pct 34.6 % [facility] Comment: Interpretive Data Percent cell count reference ranges are not reported, since discordance with absolute values may lead to misinterpretation of CBC data. Current Interpretive Data was last revised on 2017. Monocyte pct 8.1 % [facility] Comment: Interpretive Data Percent cell count reference ranges are not reported, since discordance with absolute values may lead to misinterpretation of CBC data. Current Interpretive Data was last revised on 2017. Eosinophil pct 2.4 % [facility] Comment: Interpretive Data Percent cell count reference ranges are not reported, since discordance with absolute values may lead to misinterpretation of CBC data. Current Interpretive Data was last revised on 2017. Basophil pct 1.0 % [facility] Comment: Interpretive Data Percent cell count reference ranges are not reported, since discordance with absolute values may lead to misinterpretation of CBC data. Current Interpretive Data was last revised on 2017. Blood 03/19/2024 9:55 AM CDT 03/19/2024 9:55 AM CDT us Jose Chairez MD PhD LAB BLOOD ORDERABLES Final Result [facility] Department [place] [address] * Thyroid Function [place] (03/19/2024 9:55 AM CDT) TSH 0.48 0.30 - 4.20 mcIUnit/mL Blood 03/19/2024 9:55 AM CDT 03/19/2024 11:12 AM CDT Jose Chairez MD PhD LAB BLOOD ORDERABLES Final Result Performing Organization Address City/[facility]/ZIP Co de Phone Number [facility] [place] [address] * Lactate dehydrogenase (LD) (03/19/2024 9:55 AM CDT) Pathologist [facility] Lactate dehydrogenase (LDH) 229 100 - 250 Units/L Comment:Testing performed by : [address] [address] Blood 03/19/2024 9:55 AM CDT 03/19/2024 9:55 AM CDT Jose Chairez MD PhD LAB BLOOD ORDERABLES Final Result Performing Organization Address [facility] de Phone Number [facility] [place] [address] * CBC with auto differential (03/19/2024 9:55 AM CDT) [facility] WBC 7.6 3.8 - 9.9 K/cumm Comment:Testing performed by : [address] [address] Hgb 13.8 11.9 - 15.5 g/dL [facility] Comment:Testing performed by : [address] [address] Hct 40.6 35.6 - 45.5 % [facility] Comment:Testing performed by : [address] [address] Plt 246 150 - 400 K/cumm [facility] Comment:Testing performed by : [address] [address] MPV 9.4 9.1 - 12.3 fL [facility] RBC 4.75 3.90 - 5.20 M/cumm [facility] MCV 85.5 81.3 - 96.4 fL [facility] MCH 29.1 27.1 - 33.3 pg [facility] MCHC 34.0 32.3 - 35.7 g/dL [facility] RDW CV 13.3 11.1 - 14.9 % [facility] RDW SD 41.2 35.7 - 48.1 fL [facility] NRBC abs 0.00 0.00 - 0.01 K/cumm [facility] Blood 03/19/2024 9:55 AM CDT 03/19/2024 9:55 AM CDT us Jose Chairez MD PhD LAB BLOOD ORDERABLES Final Result [facility] Department [place] [address] * Comprehensive metabolic panel (03/19/2024 9:55 AM CDT) Sodium 139 135 - 145 mmol/L Comment:Testing performed by : [facility], [address] [place] [address] Potassium, pl 4.2 3.3 - 4.9 mmol/L [facility] Chloride 105 97 - 110 mmol/L [facility] CO2 25 22 - 32 mmol/L [facility] Anion gap 9 2 - 15 mmol/L [facility] BUN 18 6 - 25 mg/dL [facility] Creatinine 0.70 0.60 - 1.10 mg/dL [facility] Glucose 101 70 - 199 mg/dL [facility] Comment: Interpretive Data Fasting glucose >/= 126 [...] Calcium 10.1 8.5 - 10.3 mg/dL [facility] Bilirubin, total 0.5 0.1 - 1.2 mg/dL [facility] Protein, pl 7.8 6.5 - 8.5 g/dL [facility] Albumin 4.4 3.5 - 5.0 g/dL [facility] Alk phos 55 40 - 130 Units/L [facility] ALT 15 7 - 45 Units/L [facility] AST 24 10 - 45 Units/L [facility] Blood 03/19/2024 9:55 AM CDT 03/19/2024 9:55 AM CDT us Jose Chairez MD PhD LAB BLOOD ORDERABLES Final Result [facility] Department [place] [address] documented in this encounter Visit Diagnoses Diagnosis Malignant melanoma of unknown origin (HCC) documented in this encounter Orders Appointment Requests Count Last Ordered Date Fi rst Ordered Date ONCBCN LAB APPOINTMENT 1 03/19/2024 documented in this encounter Care Teams Rn Ent Relationship Specialty Start Date End Date Becky Conroy NP [address] [place] [address] PCP - General Nurse Practitioner 07/06/23 Jose Chairez MD PhD [address] [facility] [address] [place] [address] Medical Oncologist/Personal Care Aide Medical Oncology 08/14/23 Evelin Lofton MD [address] [place] [address] Referring Physician Cardiovascular Disease 08/14/23 documented as of this encounter
--- OUTSIDE RECORDS SUMMARY | 2024-09-17 04:21 | XMS_ITS | Encounter Summary ---
Author Organization [facility] Address [address] [place] [address] Phone Care Team Providers Care Conductor/Engineer Name Role Phone Becky Conroy NP Primary Care Provider [phone] Jose Chairez MD PhD Unavailable [phone]- [phone] Evelin Lofton MD Unavailable [phone] Encounter Details Date Type Department Care Team (Late st Contact Info) Description 02/22/2024 Orders Only [facility] Oncology [address] [place] [address] Jose Chairez MD PhD [address] [facility] [address] [place], [place] [id number] Social History Tobacco Use Types Packs/Day Years [...] on file 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 Gender Identity Not on file Sexual Orientation Not on file documented as of this encounter Plan of Treatment Not on file documented as of this encounter Visit Diagnoses Not on filedocumented in this encounter Care Teams Conductor/Engineer Relationship Specialty Start Date End Date Becky Conroy NP [address] [place] [address] PCP - General Nurse Practitioner 07/06/23 Jose Chairez MD PhD [address] [facility] [address] [place] [address] Medical Oncologist/Centrifugal Operator Medical Oncology 08/14/23 Evelin Lofton MD [address] [place] [address] Referring Physician Cardiovascular Disease 08/14/23 documented as of this encounter
--- OUTSIDE RECORDS SUMMARY | 2024-09-17 04:21 | XMS_ITS | Encounter Summary ---
Author Organization [facility] Address [address] [place] [address] Phone Care Team Providers Care Gender Studies Professor Name Role Phone Becky Conroy NP Primary Care Provider [phone] Jose Chairez MD PhD Unavailable [phone] Evelin Lofton MD Unavailable [phone] Reason for Visit * Episode Based Medications (Routine) - Closed Specialty Diagnoses / Procedures Referred By Contac t Referred To Contact Oncology Diagnoses Malignant melanoma of unknown origin (HCC) Jose Chairez MD PhD [address] [facility] [address] [place] [address] Phone: tel: fax: [facility] [address] [address] Phone: tel: fax: Referral ID Status Reason Start Date Expiration Date Visits Re quested Visits Authorized [id number] Closed 05/27/2024 09/04/2024 1 30 Encounter Details Date Type Department Care Team (Late st Contact Info) Description 04/30/2024 9:45 AM CDT Office Visit [facility] Oncology [address] [place] [address] Jose Chairez MD PhD [address] [facility] [address] [place] [address] Malignant melanoma of unknown origin [...] on file 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 Gender Identity Not on file Sexual Orientation Not on file documented as of this encounter Last Filed Vital Signs Vital Sign Reading Time Taken Comments Blood Pressure 145/69 04/30/2024 10:00 AM CDT Pulse 73 04/30/2024 10:00 AM CDT Temperature 36.4 ??C (97.5 ??F) 04/30/2024 10:00 AM C DT Respiratory Rate 17 04/30/2024 10:00 AM CDT Oxygen Saturation 98% 04/30/2024 10:00 AM CDT Inhaled Oxygen Concentration - - Weight 65.5 kg (144 lb 8 oz) 04/30/2024 10:00 AM CDT Height - - Body Mass Index 24.05 11/29/2023 8:23 AM CDT documented in this encounter Progress Notes * Daryl Glasgow ENERGY ECONOMIST - 04/30/2024 9:45 AM CDT Oncology Progress Note Cancer Staging [...] Day Cycles Current day: Day 1, Cycle 13 (Planned for 04/30/2024) Following planned day: Day 1, Cycle 14 (Planned for 05/21/2024) Subjective Interval History Magui Sophia Baker presents for ongoing management of melanoma. [...] Known Allergies Outpatient Encounter Medications as of 04/30/2024: clopidogreL (PLAVIX) 75 mg tablet, Take 1 [...] 72 hour(s)) Comprehensive metabolic panel Collection Time: 04/30/24 8:54 AM Result Value Ref Range Sodium 142 135 - 145 mmol/L Potassium, pl 4.0 3.3 - 4.9 mmol/L Chloride 102 97 - 110 mmol/L CO2 29 22 - 32 mmol/L Anion gap 11 2 - 15 mmol/L BUN 16 6 - 25 mg/dL Creatinine 0.61 0.60 - 1.10 mg/dL Glucose 92 70 - 199 mg/dL Calcium 10.0 8.5 - 10.3 mg/dL Bilirubin, total 0.5 0.1 - 1.2 mg/dL Protein, pl 7.5 6.5 - 8.5 g/dL Albumin 4.5 3.5 - 5.0 g/dL Alk phos 49 40 - 130 Units/L ALT 17 7 - 45 Units/L AST 22 10 - 45 Units/L CBC with auto differential Collection Time: 04/30/24 8:54 AM Result Value Ref Range WBC 8.8 3.8 - 9.9 K/cumm Hgb 14.1 11.9 - 15.5 g/dL Hct 42.1 35.6 - 45.5 % Plt 245 150 - 400 K/cumm MPV 9.3 9.1 - 12.3 fL RBC 4.86 3.90 - 5.20 M/cumm MCV 86.6 81.3 - 96.4 fL MCH 29.0 27.1 - 33.3 pg MCHC 33.5 32.3 - 35.7 g/dL RDW CV 13.1 11.1 - 14.9 % RDW SD 41.2 35.7 - 48.1 fL NRBC abs 0.00 0.00 - 0.01 K/cumm Lactate dehydrogenase (LD) Collection Time: 04/30/24 8:54 AM Result Value Ref Range Lactate dehydrogenase (LDH) 181 100 - 250 Units/L Differential, auto Collection Time: 04/30/24 8:54 AM Result Value Ref Range Neutrophil abs 5.5 1.5 - 6.5 K/cumm Imm gran abs 0.0 0.0 - 0.1 K/cumm Lymphocyte abs 2.3 0.8 - 3.3 K/cumm Monocyte abs 0.7 0.2 - 0.8 K/cumm Eosinophil abs 0.2 0.0 - 0.5 K/cumm Basophil abs 0.1 0.0 - 0.1 K/cumm Neutrophil pct 62.3 % Imm gran pct 0.3 % Lymphocyte pct 26.0 % Monocyte pct 8.1 % Eosinophil pct 2.5 % Basophil pct 0.8 % eGFR Collection Time: 04/30/24 8:54 AM Result Value Ref Range eGFR 90 >=60 mL/min/1.73 m2 Radiology: PET/CT FDG Skull [...] FDG-PET/CT IMAGING DATE OF STUDY: 03/18/2024 SCANNER: [facility] RADIOPHARMACEUTICAL: 16.7 mCi F-18 Fluorodeoxyglucose (FDG) [...] obtained. The study was interpreted on the Live Mobile workstation. The mean liver SUV (reported for [...] forward. [place] YAPP-C Nurse Practitioner Medical Oncology Hair Blender completed by using M*Modal Fluency Direct speaking software, therefore, transcriptionvariances may occur. documented in this encounter Plan of Treatment Not on file documented as of this encounter Results * Comprehensive metabolic panel (05/21/2024 8:31 AM CDT) Sodium 140 135 - 145 mmol/L Comment:Testing performed by : [facility], [address] [place] [address] Potassium, pl 3.8 3.3 - 4.9 mmol/L [facility] Chloride 102 97 - 110 mmol/L [facility] CO2 29 22 - 32 mmol/L [facility] Anion gap 9 2 - 15 mmol/L [facility] BUN 16 6 - 25 mg/dL [facility] Creatinine 0.74 0.60 - 1.10 mg/dL [facility] Glucose 95 70 - 199 mg/dL [facility] Comment: Interpretive Data Fasting glucose [...] 2022. Calcium 9.9 8.5 - 10.3 mg/dL [facility] Bilirubin, total 0.4 0.1 - 1.2 mg/dL [facility] Protein, pl 7.7 6.5 - 8.5 g/dL [facility] Albumin 4.5 3.5 - 5.0 g/dL [facility] Alk phos 52 40 - 130 Units/L [facility] ALT 16 7 - 45 Units/L [facility] AST 22 10 - 45 Units/L [facility] Blood 05/21/2024 8:31 AM CDT 05/21/2024 8:31 AM CDT Daryl Glasgow NP LAB BLOOD ORDERABLES Valencia l Result [facility] Department [place] [address] * CBC with auto differential (05/21/2024 8:31 AM CDT) [facility] WBC 8.5 3.8 - 9.9 K/cumm Comment:Testing performed by : [facility], [address] [place] [address] Hgb 14.0 11.9 - 15.5 g/dL [facility] Comment:Testing performed by : [facility], [address] [place] [address] Hct 42.3 35.6 - 45.5 % [facility] Comment:Testing performed by : [facility], [address] [place] [address] Plt 238 150 - 400 K/cumm [facility] Comment:Testing performed by : [facility], [address] [place] [address] MPV 9.2 9.1 - 12.3 fL [facility] RBC 4.79 3.90 - 5.20 M/cumm [facility] MCV 88.3 81.3 - 96.4 fL [facility] MCH 29.2 27.1 - 33.3 pg [facility] MCHC 33.1 32.3 - 35.7 g/dL [facility] RDW CV 13.1 11.1 - 14.9 % [facility] RDW SD 42.2 35.7 - 48.1 fL [facility] NRBC abs 0.00 0.00 - 0.01 K/cumm [facility] Blood 05/21/2024 8:31 AM CDT 05/21/2024 8:31 AM CDT Daryl Glasgow ENERGY ECONOMIST LAB BLOOD ORDERABLES Valencia l Result [facility] Department [place] [employer] [place] [address] * Lactate dehydrogenase (LD) (05/21/2024 8:31 AM CDT) Lactate dehydrogenase (LDH) 184 100 - 250 Units/L Comment:Testing performed by : [facility], [address] [place] [address] Blood 05/21/2024 8:31 AM CDT 05/21/2024 8:31 AM CDT Daryl Glasgow ENERGY ECONOMIST LAB BLOOD ORDERABLES Valencia l Result [facility] Department [place] [address] * Thyroid Function Phillips (05/21/2024 8:31 AM CDT) TSH 0.76 0.30 - 4.20 mcIUnit/mL Blood 05/21/2024 8:31 AM CDT 05/21/2024 9:59 AM CDT us Daryl Glasgow ENERGY ECONOMIST LAB BLOOD ORDERABLES Valencia l Result [facility] Department [place] [address] documented in this encounter Visit Diagnoses Diagnosis Malignant melanoma of unknown origin (HCC)- Primary documented in this encounter Historical Medications * This list may reflect changes made after this encounter. vibegron (Gemtesa) 75 mg tablet Take 1 each by mouth daily added in this encounter Orders Appointment Requests Count Last Ordered Date Fi rst Ordered Date ONCBCN CLINIC APPOINTMENT REQUEST 2 024 04/30/2024 ONCBCN LAB APPOINTMENT 1 05/21/2024 ONCBCN RETURN CHEMO 1.5HRS 1 05/21/2024 documented in this encounter Care Teams Gender Studies Professor Relationship Specialty Start Date End Date Becky Conroy NP [address] [place] [address] PCP - General Nurse Practitioner 07/06/23 Jose Chairez MD PhD [address] [facility] [address] [place] [address] Medical Oncologist/Laborer Mine Medical Oncology 08/14/23 Evelin Lofton MD [address] [place] [address] Referring Physician Cardiovascular Disease 08/14/23 documented as of this encounter
--- OUTSIDE RECORDS SUMMARY | 2024-09-17 04:21 | XMS_ITS | Encounter Summary ---
Author Organization [facility] Address [address] [place] [address] Phone Care Team Providers Care Port Warden Name Role Phone Becky Conroy NP Primary Care Provider [phone] Jose Chairez MD PhD Unavailable [phone] Evelin Lofton MD Unavailable [phone] Reason for Visit * Reason Comments Chemotherapy * Episode Based Medications (Routine) - Closed Specialty Diagnoses / Procedures Referred By Contac t Referred To Contact Oncology Diagnoses Malignant melanoma of unknown origin (HCC) Jose Chairez MD PhD [address] [facility] [address] [place] [address] Phone: tel: fax: [facility] [address] [place] [address] Phone: tel: fax: Referral ID Status Reason Start Date Expiration Date Visits Re quested Visits Authorized [id number] Closed 05/27/2024 09/04/2024 1 30 Encounter Details Date Type Department Care Team (Late st Contact Info) Description 02/06/2024 11:45 AM CDT Infusion [facility] Oncology [address] [place] [phone] Malignant melanoma of unknown origin (HCC) [...] on file 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 female who presents for treatment cycle 9, day 1 of Pembrolizumab. Pre-treatment Nursing Assessment Nursing Assessment LOC: Alert Fatigue: None Any falls since your last visit?: No Orientation: Oriented x4 Peripheral Neuropathy: No Oral Mucosa Grade: Normal (0) Pt states has potential to be ?: N/A Shortness of Breath?: No Appetite: Good Nausea/Vomiting: No Diarrhea: No Constipation: No Last BM Date: 02/06/24 Skin Condition/Temp: Warm, Dry, Rash Rash Location: md aware, has cream Swelling: No Additional Notes: States no new issues or concerns. BP: 145/76 Temp: 36.7 ??C (98.1 ??F) Temp src: Oral Pulse: 79 Resp: 17 SpO2: 95 % Weight: 65.3 kg (144 lb) Pain Score: 0 - No pain Treatment Patient: met treatment parameters Pre blood return: Mariposa Baker tolerated treatment well. Patient was frequently observed and monitored throughout the administration of their treatment. Post blood return: Brisk IV access post infusion: NS Patient Education Treatment Education: Information/teaching given to patient including symptom management, process and procedure related to today's visit, and when to notify MD Response: Verbalizes understanding Discharge Plan Discharge instructions given to patient. Future appointments given and reviewed with treatment plan. Discharge Mode: Ambulatory Accompanied by: Self and Other Discharged To: Home documented in this encounter [...] mL/hr, Administer over 30 Minutes, Once, On Mon02/06/24 at 1215, For 1 dose, Use 0.2-5 micron filter, low-sorbing, low protein binding.Indications:Malignan t melanoma of unknown origin (HCC) New Bag 02/06/2024 12:43 PM CDT 200 mg 216 mL/hr documented in this encounter Orders Medications Ordered That Stalin ht Not Have Been Administered Count Last Ordered Date First Ordered Date pembrolizumab (KEYTRUDA) 200 mg in sodium chloride 0.9% 100 mL IVPB 1 02/06/2024 Nursing Count Last Ordered Date First Orde red Date ONCBCN TREATMENT PARAMETERS 3 1 02/06/2024 Appointment Requests Count Last Ordered Date Fi rst Ordered Date ONCBCN RETURN CHEMO 1.5HRS 1 02/06/2024 documented in this encounter Care Teams Port Warden Relationship Specialty Start Date End Date Becky Conroy NP [address] [place] [address] PCP - General Nurse Practitioner 07/06/23 Jose Chairez MD PhD [address] [facility] [address] [place] [address] Medical Oncologist/Workflow Developer Medical Oncology 08/14/23 Evelin Lofton MD [address] [place] [address] Referring Physician Cardiovascular Disease 08/14/23 documented as of this encounter
--- OUTSIDE RECORDS SUMMARY | 2024-09-17 04:21 | XMS_ITS | Encounter Summary ---
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 Gender Identity Not on file Sexual Orientation Not on file documented as of this encounter Plan of Treatment Not on file documented as of this encounter Procedures Procedure Name Priority Date/Time Associated Diagnosis Comments EGFR STAT 12/26/2023 9:55 AM CDT Malignant melanoma of unknown origin (HCC) DIFFERENTIAL AUTO Routine 12/26/2023 9:5 5 AM CDT Malignant melanoma of unknown origin (HCC) THYROID FUNCTION CASCADE Routine 12/26/2023 9:55 AM CDT Malignant melanoma of unknown origin (HCC) CBC WITH AUTO DIFFERENTIAL Routine 12/26/2023 9:55 AM CDT Malignant melanoma of unknown origin (HCC) T4, FREE Routine 12/26/2023 9:55 AM CDT Malignant melanoma of unknown origin (HCC) LACTATE DEHYDROGENASE Routine 12/26/2023 9:55 AM CDT Malignant melanoma of unknown origin (HCC) COMPREHENSIVE METABOLIC PANEL STAT 12/26/2023 9:55 AM CDT Malignant melanoma of unknown origin (HCC) documented in this encounter Results * (ABNORMAL) T4, free (12/26/2023 9:55 AM CDT) Free T4 1.77(H) 0.90 - 1.70 ng/dL Blood 12/26/2023 9:55 AM CDT 12/26/2023 11:06 AM CDT Narrative [facility] - 12/26/2023 12:10 PM CDT This test was reflexed from a TSH result. us Daryl Glasgow NP LAB BLOOD ORDERABLES Edit ed Result - Final [facility] [place] [address] * eGFR (12/26/2023 9:55 AM CDT) eGFR 89 >=60 mL/min/1. 73 [...] interpretive data was last reviewed 2021. Blood 12/26/2023 9:55 AM CDT 12/26/2023 9:57 AM CDT us Daryl Glasgow NP LAB BLOOD ORDERABLES Valencia valadez Result [facility] One [facility] Department [place] [address] * Differential, auto (12/26/2023 9:55 AM CDT) Pathologist [facility] Neutrophil abs 4.0 1.5 - 6.5 K/cumm Comment:Testing performed by : [facility], [address] [place] [address] Imm gran abs 0.0 0.0 - 0.1 K/cumm [facility] Lymphocyte abs 2.6 0.8 - 3.3 K/cumm [facility] Monocyte abs 0.7 0.2 - 0.8 K/cumm [facility] Eosinophil abs 0.2 0.0 - 0.5 K/cumm [facility] Basophil abs 0.1 0.0 - 0.1 K/cumm [facility] Neutrophil pct 53.2 % [facility] Comment: Interpretive Data Percent cell count reference ranges are not reported, since discordance with absolute values may lead to misinterpretation of CBC data. Current Interpretive Data was last revised on 2017. Imm gran pct 0.3 % [facility] Comment: Interpretive Data Percent cell count reference ranges are not reported, since discordance with absolute values may lead to misinterpretation of CBC data. Current Interpretive Data was last revised on 2017. Lymphocyte pct 34.5 % [facility] Comment: Interpretive Data Percent cell count reference ranges are not reported, since discordance with absolute values may lead to misinterpretation of CBC data. Current Interpretive Data was last revised on 2017. Monocyte pct 9.1 % [facility] Comment: Interpretive Data Percent cell count reference ranges are not reported, since discordance with absolute values may lead to misinterpretation of CBC data. Current Interpretive Data was last revised on 2017. Eosinophil pct 2.0 % [facility] Comment: Interpretive Data Percent cell count reference ranges are not reported, since discordance with absolute values may lead to misinterpretation of CBC data. Current Interpretive Data was last revised on 2017. Basophil pct 0.9 % [facility] Comment: Interpretive Data Percent cell count reference ranges are not reported, since discordance with absolute values may lead to misinterpretation of CBC data. Current Interpretive Data was last revised on 2017. Blood 12/26/2023 9:55 AM CDT 12/26/2023 9:57 AM CDT us Daryl Glasgow NP LAB BLOOD ORDERABLES Valencia valadez Result [facility] One [facility] Department [place] [address] * (ABNORMAL) Thyroid Function [place] (12/26/2023 9:55 AM CDT) [facility] TSH <0.01(L) 0.30 - 4.20 mcIUnit/mL Blood 12/26/2023 9:55 AM CDT 12/26/2023 11:00 AM CDT Daryl Glasgow YACHT HAND LAB BLOOD ORDERABLES Valencia l Result Performing Organization Address City/[facility] Co de Phone Number [facility] Department [place] [address] * Lactate dehydrogenase (LD) (12/26/2023 9:55 AM CDT) [facility] Lactate dehydrogenase (LDH) 194 100 - 250 Units/L Comment:Testing performed by : [address] [address] Blood 12/26/2023 9:55 AM CDT 12/26/2023 9:57 AM CDT Daryl Glasgow NP LAB BLOOD ORDERABLES Valencia l Result Performing Organization Address [facility] de Phone Number [facility] [place] [address] * CBC with auto differential (12/26/2023 9:55 AM CDT) [facility] WBC 7.6 3.8 - 9.9 K/cumm Comment:Testing performed by : [address] [address] Hgb 14.2 11.9 - 15.5 g/dL [facility] Comment:Testing performed by : [address] [address] Hct 41.8 35.6 - 45.5 % [facility] Comment:Testing performed by : [address] [address] Plt 266 150 - 400 K/cumm [facility] Comment:Testing performed by : [address] [address] MPV 9.4 9.1 - 12.3 fL [facility] RBC 4.84 3.90 - 5.20 M/cumm [facility] MCV 86.4 81.3 - 96.4 fL [facility] MCH 29.3 27.1 - 33.3 pg [facility] MCHC 34.0 32.3 - 35.7 g/dL [facility] RDW CV 12.5 11.1 - 14.9 % [facility] RDW SD 39.6 35.7 - 48.1 fL [facility] NRBC abs 0.00 0.00 - 0.01 K/cumm [facility] Blood 12/26/2023 9:55 AM CDT 12/26/2023 9:57 AM CDT Daryl Glasgow NP LAB BLOOD ORDERABLES Valencia valadez Result [facility] Department [place] [address] * (ABNORMAL) Comprehensive metabolic panel (12/26/2023 9:55 AM CDT) [facility] Sodium 140 135 - 145 mmol/L Comment:Testing performed by : [facility], [address] [place] [address] Potassium, pl 3.2(L) 3.3 - 4.9 mmol/L [facility] Chloride 102 97 - 110 mmol/L [facility] CO2 27 22 - 32 mmol/L [facility] Anion gap 11 2 - 15 mmol/L [facility] BUN 17 6 - 25 mg/dL [facility] Creatinine 0.64 0.60 - 1.10 mg/dL [facility] Glucose 99 70 - 199 mg/dL [facility] Comment: Interpretive Data Fasting glucose [...] interpretive data was last revised 2022. Calcium 10.3 8.5 - 10.3 mg/dL [facility] Bilirubin, total 0.6 0.1 - 1.2 mg/dL [facility] Protein, pl 8.2 6.5 - 8.5 g/dL [facility] Albumin 4.5 3.5 - 5.0 g/dL [facility] Alk phos 50 40 - 130 Units/L [facility] ALT 21 7 - 45 Units/L [facility] AST 25 10 - 45 Units/L [facility] Blood 12/26/2023 9:55 AM CDT 12/26/2023 9:57 AM CDT Daryl Glasgow YACHT HAND LAB BLOOD ORDERABLES Valencia valadez Result [facility] Department [place] [address] documented in this encounter Visit Diagnoses Diagnosis Malignant melanoma of unknown origin (HCC) documented in this encounter Care Teams Class C Driver Relationship Specialty Start Date End Date Becky Conroy NP [address] [place] [address] PCP - General Nurse Practitioner 07/06/23 Jose Chairez MD PhD [address] [facility] [address] [place], [place] [id number] Medical Oncologist/Clinical Education Assistant Medical Oncology 08/14/23 Evelin Lofton MD [address] [place] [address] Referring Physician Cardiovascular Disease 08/14/23 documented as of this encounter
--- OUTSIDE RECORDS SUMMARY | 2024-09-17 04:21 | XMS_ITS | Encounter Summary ---
Author Organization [facility] Healthcare Address [address] [place] [address] Care Team Providers Care Agile Tester Name Role Phone Becky Conroy NP Primary Care Provider [phone] Jose Chairez MD PhD Unavailable [phone] Evelin Lofton MD Unavailable [phone] Reason for Visit * Episode Based Medications (Routine) - Closed Specialty Diagnoses / Procedures Referred By Contmarques t Referred To Contact Oncology Diagnoses Malignant melanoma of unknown origin (HCC) Jose Chairez MD PhD [address] [facility] [address] [place] [address] Phone: tel: fax: [address] [address] Phone: tel: fax: Referral ID Status Reason Start Date Expiration Date Visits Re quested Visits Authorized [id number] Closed 05/27/2024 09/04/2024 30 Encounter Details Date Type Department Care Team (Late st Contact Info) Description 04/30/2024 9:00 AM CDT Lab [address] [address] Malignant melanoma of unknown origin [...] on file 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 Gender Identity Not on file Sexual Orientation Not on file documented as of this encounter Plan of Treatment Not on file documented as of this encounter Procedures Procedure Name Priority Date/Time Associated Diagnosis Comments EGFR STAT 04/30/2024 8:54 AM CDT Malignant melanoma of unknown origin (HCC) DIFFERENTIAL AUTO Routine 04/30/2024 8:5 4 AM CDT Malignant melanoma of unknown origin (HCC) THYROID FUNCTION CASCADE Routine 04/30/2024 8:54 AM CDT Malignant melanoma of unknown origin (HCC) CBC WITH AUTO DIFFERENTIAL Routine 04/30/2024 8:54 AM CDT Malignant melanoma of unknown origin (HCC) LACTATE DEHYDROGENASE Routine 04/30/2024 8:54 AM CDT Malignant melanoma of unknown origin (HCC) COMPREHENSIVE METABOLIC PANEL STAT 04/30/2024 8:54 AM CDT Malignant melanoma of unknown origin (HCC) documented in this encounter Results * eGFR (04/30/2024 8:54 AM CDT) eGFR 90 >=60 mL/min/1. 73 [...] interpretive data was last reviewed 2021. Blood 04/30/2024 8:54 AM CDT 04/30/2024 8:54 AM CDT us Jose Chairez MD PhD LAB BLOOD ORDERABLES Final Result [facility] One [facility] Department [place] [address] * Differential, auto (04/30/2024 8:54 AM CDT) Pathologist [facility] Neutrophil abs 5.5 1.5 - 6.5 K/cumm Comment:Testing performed by : [facility], [address] [facility] [address] Imm gran abs 0.0 0.0 - 0.1 K/cumm [facility] Lymphocyte abs 2.3 0.8 - 3.3 K/cumm [facility] Monocyte abs 0.7 0.2 - 0.8 K/cumm [facility] Eosinophil abs 0.2 0.0 - 0.5 K/cumm [facility] Basophil abs 0.1 0.0 - 0.1 K/cumm [facility] Neutrophil pct 62.3 % [facility] Comment: Interpretive Data Percent cell count reference ranges are not reported, since discordance with absolute values may lead to misinterpretation of CBC data. Current Interpretive Data was last revised on 2017. Imm gran pct 0.3 % [facility] Comment: Interpretive Data Percent cell count reference ranges are not reported, since discordance with absolute values may lead to misinterpretation of CBC data. Current Interpretive Data was last revised on 2017. Lymphocyte pct 26.0 % [facility] Comment: Interpretive Data Percent cell count reference ranges are not reported, since discordance with absolute values may lead to misinterpretation of CBC data. Current Interpretive Data was last revised on 2017. Monocyte pct 8.1 % [facility] Comment: Interpretive Data Percent cell count reference ranges are not reported, since discordance with absolute values may lead to misinterpretation of CBC data. Current Interpretive Data was last revised on 2017. Eosinophil pct 2.5 % [facility] Comment: Interpretive Data Percent cell count reference ranges are not reported, since discordance with absolute values may lead to misinterpretation of CBC data. Current Interpretive Data was last revised on 2017. Basophil pct 0.8 % [facility] Comment: Interpretive Data Percent cell count reference ranges are not reported, since discordance with absolute values may lead to misinterpretation of CBC data. Current Interpretive Data was last revised on 2017. Blood 04/30/2024 8:54 AM CDT 04/30/2024 8:54 AM CDT us Jose Chairez MD PhD LAB BLOOD ORDERABLES Final Result [facility] One [facility] Department [place] [address] * Thyroid Function [place] (04/30/2024 8:54 AM CDT) TSH 0.71 0.30 - 4.20 mcIUnit/mL Blood 04/30/2024 8:54 AM CDT 04/30/2024 10:15 AM CDT Jose Chairez MD PhD LAB BLOOD ORDERABLES Final Result Performing Organization Address City/[facility] Co de Phone Number [facility] [place] [address] * Lactate dehydrogenase (LD) (04/30/2024 8:54 AM CDT) Pathologist [facility] Lactate dehydrogenase (LDH) 181 100 - 250 Units/L Comment:Testing performed by : [address] [address] Blood 04/30/2024 8:54 AM CDT 04/30/2024 8:54 AM CDT Jose Chairez MD PhD LAB BLOOD ORDERABLES Final Result Performing Organization Address [facility] de Phone Number [facility] [place] [address] * CBC with auto differential (04/30/2024 8:54 AM CDT) [facility] WBC 8.8 3.8 - 9.9 K/cumm Comment:Testing performed by : [address] [address] Hgb 14.1 11.9 - 15.5 g/dL [facility] Comment:Testing performed by : [address] [address] Hct 42.1 35.6 - 45.5 % [facility] Comment:Testing performed by : [address] [address] Plt 245 150 - 400 K/cumm [facility] Comment:Testing performed by : [address] [address] MPV 9.3 9.1 - 12.3 fL [facility] RBC 4.86 3.90 - 5.20 M/cumm [facility] MCV 86.6 81.3 - 96.4 fL [facility] MCH 29.0 27.1 - 33.3 pg [facility] MCHC 33.5 32.3 - 35.7 g/dL [facility] RDW CV 13.1 11.1 - 14.9 % [facility] RDW SD 41.2 35.7 - 48.1 fL [facility] NRBC abs 0.00 0.00 - 0.01 K/cumm [facility] Blood 04/30/2024 8:54 AM CDT 04/30/2024 8:54 AM CDT us Jose Chairez MD PhD LAB BLOOD ORDERABLES Final Result [facility] One [facility] Department [place] [address] * Comprehensive metabolic panel (04/30/2024 8:54 AM CDT) Sodium 142 135 - 145 mmol/L Comment:Testing performed by : [facility], [address] [place] [address] Potassium, pl 4.0 3.3 - 4.9 mmol/L [facility] Chloride 102 97 - 110 mmol/L [facility] CO2 29 22 - 32 mmol/L [facility] Anion gap 11 2 - 15 mmol/L [facility] BUN 16 6 - 25 mg/dL [facility] Creatinine 0.61 0.60 - 1.10 mg/dL [facility] Glucose 92 70 - 199 mg/dL [facility] [...] 2022. Calcium 10.0 8.5 - 10.3 mg/dL [facility] Bilirubin, total 0.5 0.1 - 1.2 mg/dL [facility] Protein, pl 7.5 6.5 - 8.5 g/dL [facility] Albumin 4.5 3.5 - 5.0 g/dL [facility] Alk phos 49 40 - 130 Units/L [facility] ALT 17 7 - 45 Units/L [facility] AST 22 10 - 45 Units/L [facility] Blood 04/30/2024 8:54 AM CDT 04/30/2024 8:54 AM CDT us Jose Chairez MD PhD LAB BLOOD ORDERABLES Final Result [facility] One [facility] Department [place] [address] documented in this encounter Visit Diagnoses Diagnosis Malignant melanoma of unknown origin (HCC) documented in this encounter Orders Appointment Requests Count Last Ordered Date Fi rst Ordered Date ONCBCN LAB APPOINTMENT 1 04/30/2024 documented in this encounter Care Teams Agile Tester Relationship Specialty Start Date End Date Becky Conroy NP [address] [place] [address] PCP - General Nurse Practitioner 07/06/23 Jose Chairez MD PhD [address] [facility] [address] [place] [address] Medical Oncologist/Agile Tester Medical Oncology 08/14/23 Evelin Lofton MD [address] [place] [address] Referring Physician Cardiovascular Disease 08/14/23 documented as of this encounter
--- OUTSIDE RECORDS SUMMARY | 2024-09-17 04:21 | XMS_ITS | Encounter Summary ---
Author Organization [facility] Healthcare Address [address] [place] [address] Care Team Providers Care Elevator Supervisor Name Role Phone Becky Conroy NP Primary Care Provider [phone] Jose Chairez MD PhD Unavailable [phone] Evelin Lofton MD Unavailable [phone] Reason for Visit * Episode Based Medications (Routine) - Closed Specialty Diagnoses / Procedures Referred By Contmarques t Referred To Contact Oncology Diagnoses Malignant melanoma of unknown origin (HCC) Jose Chairez MD PhD [address] [facility] [address] [place] [address] Phone: tel: fax: [address] [address] Phone: tel: fax: Referral ID Status Reason Start Date Expiration Date Visits Re quested Visits Authorized [id number] Closed 05/27/2024 09/04/202410 10 Encounter Details Date Type Department Care Team (Late st Contact Info) Description 04/09/2024 8:00 AM CDT Lab [address] [address] Malignant melanoma of unknown origin [...] on file 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 Gender Identity Not on file Sexual Orientation Not on file documented as of this encounter Plan of Treatment Not on file documented as of this encounter Procedures Procedure Name Priority Date/Time Associated Diagnosis Comments EGFR STAT 04/09/2024 8:10 AM CDT Malignant melanoma of unknown origin (HCC) DIFFERENTIAL AUTO Routine 04/09/2024 8:1 0 AM CDT Malignant melanoma of unknown origin (HCC) THYROID FUNCTION CASCADE Routine 04/09/2024 8:10 AM CDT Malignant melanoma of unknown origin (HCC) CBC WITH AUTO DIFFERENTIAL Routine 04/09/2024 8:10 AM CDT Malignant melanoma of unknown origin (HCC) LACTATE DEHYDROGENASE Routine 04/09/2024 8:10 AM CDT Malignant melanoma of unknown origin (HCC) COMPREHENSIVE METABOLIC PANEL STAT 04/09/2024 8:10 AM CDT Malignant melanoma of unknown origin (HCC) documented in this encounter Results * eGFR (04/09/2024 8:10 AM CDT) eGFR >90 >=60 mL/min/1. 73 m2 Comment: [...] interpretive data was last reviewed 2021. Blood 04/09/2024 8:10 AM CDT 04/09/2024 8:10 AM CDT us Jose Chairez MD PhD LAB BLOOD ORDERABLES Final Result [facility] One [facility] Department [place] [address] * Differential, auto (04/09/2024 8:10 AM CDT) Pathologist [facility] Neutrophil abs 4.3 1.5 - 6.5 K/cumm Comment:Testing performed by : [facility], [address] [facility] [address] Imm gran abs 0.0 0.0 - 0.1 K/cumm [facility] Lymphocyte abs 2.6 0.8 - 3.3 K/cumm [facility] Monocyte abs 0.6 0.2 - 0.8 K/cumm [facility] Eosinophil abs 0.2 0.0 - 0.5 K/cumm [facility] Basophil abs 0.1 0.0 - 0.1 K/cumm [facility] Neutrophil pct 54.6 % [facility] Comment: Interpretive Data Percent cell count reference ranges are not reported, since discordance with absolute values may lead to misinterpretation of CBC data. Current Interpretive Data was last revised on 2017. Imm gran pct 0.3 % [facility] Comment: Interpretive Data Percent cell count reference ranges are not reported, since discordance with absolute values may lead to misinterpretation of CBC data. Current Interpretive Data was last revised on 2017. Lymphocyte pct 32.7 % [facility] Comment: Interpretive Data Percent cell count reference ranges are not reported, since discordance with absolute values may lead to misinterpretation of CBC data. Current Interpretive Data was last revised on 2017. Monocyte pct 8.0 % [facility] Comment: Interpretive Data Percent cell count reference ranges are not reported, since discordance with absolute values may lead to misinterpretation of CBC data. Current Interpretive Data was last revised on 2017. Eosinophil pct 3.1 % [facility] Comment: Interpretive Data Percent cell count reference ranges are not reported, since discordance with absolute values may lead to misinterpretation of CBC data. Current Interpretive Data was last revised on 2017. Basophil pct 1.3 % [facility] Comment: Interpretive Data Percent cell count reference ranges are not reported, since discordance with absolute values may lead to misinterpretation of CBC data. Current Interpretive Data was last revised on 2017. Blood 04/09/2024 8:10 AM CDT 04/09/2024 8:10 AM CDT us Jose Chairez MD PhD LAB BLOOD ORDERABLES Final Result [facility] One [facility] Department [place] [address] * Thyroid Function [place] (04/09/2024 8:10 AM CDT) TSH 0.67 0.30 - 4.20 mcIUnit/mL Blood 04/09/2024 8:10 AM CDT 04/09/2024 9:11 AM CDT Jose Chairez MD PhD LAB BLOOD ORDERABLES Final Result Performing Organization Address City/[facility] Co de Phone Number [facility] Department [place] [address] * (ABNORMAL) Lactate dehydrogenase (LD) (04/09/2024 8:10 AM CDT) [facility] Lactate dehydrogenase (LDH) 279(H) 100 - 250 Units/L Comment:Testing performed by : [address] [address] Blood 04/09/2024 8:10 AM CDT 04/09/2024 8:10 AM CDT Jose Chairez MD PhD LAB BLOOD ORDERABLES Final Result Performing Organization Address [facility] de Phone Number [facility] Department [place] [address] * CBC with auto differential (04/09/2024 8:10 AM CDT) [facility] WBC 7.8 3.8 - 9.9 K/cumm Comment:Testing performed by : [address] [address] Hgb 13.8 11.9 - 15.5 g/dL [facility] Comment:Testing performed by : [address] [address] Hct 40.7 35.6 - 45.5 % [facility] Comment:Testing performed by : [address] [address] Plt 253 150 - 400 K/cumm [facility] Comment:Testing performed by : [address] [address] MPV 9.4 9.1 - 12.3 fL [facility] RBC 4.73 3.90 - 5.20 M/cumm [facility] MCV 86.0 81.3 - 96.4 fL [facility] MCH 29.2 27.1 - 33.3 pg [facility] MCHC 33.9 32.3 - 35.7 g/dL [facility] RDW CV 13.3 11.1 - 14.9 % [facility] RDW SD 41.8 35.7 - 48.1 fL [facility] NRBC abs 0.00 0.00 - 0.01 K/cumm [facility] Blood 04/09/2024 8:10 AM CDT 04/09/2024 8:10 AM CDT us Jose Chairez MD PhD LAB BLOOD ORDERABLES Final Result [facility] One [facility] Department [place] [address] * (ABNORMAL) Comprehensive metabolic panel (04/09/2024 8:10 AM CDT) Sodium 140 135 - 145 mmol/L Comment:Testing performed by : [facility], [address] [place] [address] Potassium, pl 4.2 3.3 - 4.9 mmol/L [facility] Chloride 105 97 - 110 mmol/L [facility] CO2 26 22 - 32 mmol/L [facility] Anion gap 9 2 - 15 mmol/L [facility] BUN 13 6 - 25 mg/dL [facility] Creatinine 0.58(L) 0.60 - 1.10 mg/dL [facility] Glucose 97 70 - 199 mg/dL [facility] [...] Calcium 10.0 8.5 - 10.3 mg/dL [facility] Bilirubin, total 0.5 0.1 - 1.2 mg/dL [facility] Protein, pl 8.0 6.5 - 8.5 g/dL [facility] Albumin 4.6 3.5 - 5.0 g/dL [facility] Alk phos 51 40 - 130 Units/L [facility] ALT 16 7 - 45 Units/L [facility] AST 30 10 - 45 Units/L [facility] Blood 04/09/2024 8:10 AM CDT 04/09/2024 8:10 AM CDT us Jose Chairez MD PhD LAB BLOOD ORDERABLES Final Result [facility] One [facility] Department [place] [address] documented in this encounter Visit Diagnoses Diagnosis Malignant melanoma of unknown origin (HCC) documented in this encounter Orders Appointment Requests Count Last Ordered Date Fi rst Ordered Date ONCBCN LAB APPOINTMENT 1 04/09/2024 documented in this encounter Care Teams Elevator Supervisor Relationship Specialty Start Date End Date Becky Conroy NP [address] [place] [address] PCP - General Nurse Practitioner 07/06/23 Jose Chaierz MD PhD [address] [facility] [address] [place], [place] [id number] Medical Oncologist/Director Of Pediatric Rehabilitation Medical Oncology 08/14/23 Evelin Lofton MD [address] [place] [address] Referring Physician Cardiovascular Disease 08/14/23 documented as of this encounter
--- OUTSIDE RECORDS SUMMARY | 2024-09-17 04:21 | XMS_ITS | Encounter Summary ---
Author Organization [facility] Address [address] [place] [address] Phone Care Team Providers Care Household Appliances Salesperson Name Role Phone Becky Conroy NP Primary Care Provider [phone] Jose Chairez MD PhD Unavailable [phone] Evelin Lofton MD Unavailable [phone] Reason for Visit * Episode Based Medications (Routine) - Closed Specialty Diagnoses / Procedures Referred By Contac t Referred To Contact Oncology Diagnoses Malignant melanoma of unknown origin (HCC) Jsoe Chairez MD PhD [address] [facility] [address] [place] [address] Phone: tel: fax: [facility] [address] [address] Phone: tel: fax: Referral ID Status Reason Start Date Expiration Date Visits Re quested Visits Authorized [id number] Closed 05/27/2024 09/04/2024 1 30 Encounter Details Date Type Department Care Team (Late st Contact Info) Description 02/06/2024 10:45 AM CDT Office Visit [facility] Oncology [address] [place] [id number] Jose Chairez MD PhD [address] [facility] [address] [place] [address] Metastatic melanoma (HCC) (Primary Dx); Malignant melanoma of unknown origin (HCC); 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) Social History Tobacco Use Types Packs/Day [...] on file 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 Gender Identity Not on file Sexual Orientation Not on file documented as of this encounter Last Filed Vital Signs Vital Sign Reading Time Taken Comments Blood Pressure 145/76 02/06/2024 10:51 AM CDT Pulse 79 02/06/2024 10:51 AM CDT Temperature 36.7 ??C (98.1 ??F) 02/06/2024 10:51 AM C DT Respiratory Rate 17 02/06/2024 10:51 AM CDT Oxygen Saturation 95% 02/06/2024 10:51 AM CDT Inhaled Oxygen Concentration - - Weight 65.3 kg (144 lb) 02/06/2024 10:51 AM CDT Height - - Body Mass Index 23.96 11/29/2023 8:23 AM CDT documented in this encounter Progress Notes * Jose Chairez MD PhD - 02/06/2024 10:45 AM CDT Oncology Progress Note Cancer Staging [...] of axilla (HCC) Active Treatment Plans for Leidyphuong Magui Sophia Oncology Chemotherapy Treatment: Pembrolizumab 21 Day Cycles Current day: Day 1, Cycle 9 (Started on 02/06/2024; Originally planned for 02/06/2024) Following planned day: Day 1, Cycle 10 (Planned for 02/27/2024) Subjective Interval History Magui Baker presents for ongoing management of melanoma. Overall doing well. Continued improvement of L arm - better range of motion. Some mild swelling in L breast but otherwise minimal lympedema. Some pink rash on arms that responds to topical steroid. No new or concerning lesions or masses. Presents with daughter. No Known Allergies Outpatient Encounter Medications as of 02/06/2024: clopidogreL (PLAVIX) 75 mg tablet, Take 1 [...] 0 [DISCONTINUED] hydrOXYzine (ATARAX) 10 mg tablet, Take 1 tablet (10 mg total) by mouth nightly as needed for itching, Disp: 30 tablet, Rfl: 2 [DISCONTINUED] triamcinolone (KENALOG) 0.1 % cream, Apply topically 2 (two) times a day (Patient taking differently: Apply topically as needed for irritation), Disp: 80 g, Rfl: 3 No facility-administered encounter medications on file as of 02/06/2024. Review of Systems: Review of systems per HPI and otherwise all other systems are negative Performance Status: ECOG 0 Objective Vitals: Most Recent : BP: 145/76 Temp: 36.7 ??C (98.1 ??F) Temp src: Oral Pulse: 79 Resp: 17 SpO2: 95 % Weight: 65.3 kg (144 lb) Physical Exam: General Appearance: Well-appearing, in [...] 72 hour(s)) Comprehensive metabolic panel Collection Time: 02/06/24 9:38 AM Result Value Ref Range Sodium 143 135 - 145 mmol/L Potassium, pl 4.0 3.3 - 4.9 mmol/L Chloride 108 97 - 110 mmol/L CO2 26 22 - 32 mmol/L Anion gap 9 2 - 15 mmol/L BUN 19 6 - 25 mg/dL Creatinine 0.65 0.60 - 1.10 mg/dL Glucose 102 70 - 199 mg/dL Calcium 10.0 8.5 - 10.3 mg/dL Bilirubin, total 0.4 0.1 - 1.2 mg/dL Protein, pl 7.5 6.5 - 8.5 g/dL Albumin 4.5 3.5 - 5.0 g/dL Alk phos 51 40 - 130 Units/L ALT 16 7 - 45 Units/L AST 21 10 - 45 Units/L CBC with auto differential Collection Time: 02/06/24 9:38 AM Result Value Ref Range WBC 7.7 3.8 - 9.9 K/cumm Hgb 13.4 11.9 - 15.5 g/dL Hct 40.0 35.6 - 45.5 % Plt 252 150 - 400 K/cumm MPV 9.3 9.1 - 12.3 fL RBC 4.59 3.90 - 5.20 M/cumm MCV 87.1 81.3 - 96.4 fL MCH 29.2 27.1 - 33.3 pg MCHC 33.5 32.3 - 35.7 g/dL RDW CV 13.2 11.1 - 14.9 % RDW SD 41.6 35.7 - 48.1 fL NRBC abs 0.00 0.00 - 0.01 K/cumm Lactate dehydrogenase (LD) Collection Time: 02/06/24 9:38 AM Result Value Ref Range Lactate dehydrogenase (LDH) 202 100 - 250 Units/L Thyroid Function [facility] Collection Time: 02/06/24 9:38 AM Result Value Ref Range TSH 0.03 (L) 0.30 - 4.20 mcIUnit/mL Differential, auto Collection Time: 02/06/24 9:38 AM Result Value Ref Range Neutrophil abs 4.4 1.5 - 6.5 K/cumm Imm gran abs 0.0 0.0 - 0.1 K/cumm Lymphocyte abs 2.3 0.8 - 3.3 K/cumm Monocyte abs 0.7 0.2 - 0.8 K/cumm Eosinophil abs 0.2 0.0 - 0.5 K/cumm Basophil abs 0.1 0.0 - 0.1 K/cumm Neutrophil pct 57.5 % Imm gran pct 0.1 % Lymphocyte pct 29.6 % Monocyte pct 9.1 % Eosinophil pct 3.0 % Basophil pct 0.7 % eGFR Collection Time: 02/06/24 9:38 AM Result Value Ref Range eGFR 89 >=60 mL/min/1.73 m2 T4, free Collection Time: 02/06/24 9:38 AM Result Value Ref Range Free T4 1.34 0.90 - 1.70 ng/dL T3, free Collection Time: 02/06/24 9:38 AM Result Value Ref Range Free T3 3.2 2.0 - 4.4 pg/mL Radiology: Assessment/Plan Magui Baker is 78 y.o. woman [...] (BELLE on prior). Continue adjuvant pembro - restage in early March - will see [place] then. MRI brain - no evidence of melanoma mets, repeat annual. TSH - previously normal T4, but low TSH. Now with normal T4 and low TSH - may be trend from hyper to hypo thyroid. Will continue to monitor and replete if needed. RTC 3 weeks for next cycle IO. Restaging PET and ROV in March. All questions answered. Reiterated that I remain available for additional questions that may arise going forward. documented in this encounter Plan of Treatment Not on file documented as of this encounter Results * Comprehensive metabolic panel (03/19/2024 9:55 AM CDT) Sodium 139 135 - 145 mmol/L Comment:Testing performed by : [facility], [address] [facility] [address] Potassium, pl 4.2 3.3 - 4.9 mmol/L [facility] Chloride 105 97 - 110 mmol/L [facility] CO2 25 22 - 32 mmol/L [facility] Anion gap 9 2 - 15 mmol/L [facility] BUN 18 6 - 25 mg/dL [facility] Creatinine 0.70 0.60 - 1.10 mg/dL [facility] Glucose 101 70 - 199 mg/dL [facility] [...] 2022. Calcium 10.1 8.5 - 10.3 mg/dL [facility] Bilirubin, total 0.5 0.1 - 1.2 mg/dL [facility] Protein, pl 7.8 6.5 - 8.5 g/dL [facility] Albumin 4.4 3.5 - 5.0 g/dL [facility] Alk phos 55 40 - 130 Units/L [facility] ALT 15 7 - 45 Units/L [facility] AST 24 10 - 45 Units/L [facility] Blood 03/19/2024 9:55 AM CDT 03/19/2024 9:55 AM CDT Jose Chairez MD PhD LAB BLOOD ORDERABLES Final Result [facility] One [facility] [place] [address] * CBC with auto differential (03/19/2024 9:55 AM CDT) [facility] WBC 7.6 3.8 - 9.9 K/cumm Comment:Testing performed by : [address] [address] Hgb 13.8 11.9 - 15.5 g/dL [facility] Comment:Testing performed by : [address] [address] Hct 40.6 35.6 - 45.5 % [facility] Comment:Testing performed by : [address], [place] [address] Plt 246 150 - 400 K/cumm [facility] Comment:Testing performed by : [facility], [address] [place] [address] MPV 9.4 9.1 - 12.3 fL [facility] RBC 4.75 3.90 - 5.20 M/cumm [facility] MCV 85.5 81.3 - 96.4 fL [facility] MCH 29.1 27.1 - 33.3 pg [facility] MCHC 34.0 32.3 - 35.7 g/dL [facility] RDW CV 13.3 11.1 - 14.9 % [facility] RDW SD 41.2 35.7 - 48.1 fL [facility] NRBC abs 0.00 0.00 - 0.01 K/cumm [facility] Blood 03/19/2024 9:55 AM CDT 03/19/2024 9:55 AM CDT us Jose Chairez MD PhD LAB BLOOD ORDERABLES Final Result Performing Organization Address City/[facility]/ZIP Co de Phone Number [facility] Department [place] [employer] [place] [address] * Lactate dehydrogenase (LD) (03/19/2024 9:55 AM CDT) Pathologist [facility] Lactate dehydrogenase (LDH) 229 100 - 250 Units/L Comment:Testing performed by : [facility], [address] [place] [address] Blood 03/19/2024 9:55 AM CDT 03/19/2024 9:55 AM CDT Jose Chairez MD PhD LAB BLOOD ORDERABLES Final Result Performing Organization Address City/[facility]/ZIP Co de Phone Number [facility] [place] [address] * Thyroid Function [place] (03/19/2024 9:55 AM CDT) TSH 0.48 0.30 - 4.20 mcIUnit/mL Blood 03/19/2024 9:55 AM CDT 03/19/2024 11:12 AM CDT Jose Chairez MD PhD LAB BLOOD ORDERABLES Final Result [facility] One [facility] [place] [address] * Comprehensive metabolic panel (02/27/2024 7:49 AM CDT) Pathologist [facility] Sodium 143 135 - 145 mmol/L Comment:Testing performed by : [address] [address] Potassium, pl 3.8 3.3 - 4.9 mmol/L [facility] Chloride 105 97 - 110 mmol/L [facility] CO2 29 22 - 32 mmol/L [facility] Anion gap 9 2 - 15 mmol/L [facility] BUN 13 6 - 25 mg/dL [facility] Creatinine 0.61 0.60 - 1.10 mg/dL [facility] Glucose 89 70 - 199 mg/dL [facility] [...] 2022. Calcium 10.2 8.5 - 10.3 mg/dL [facility] Bilirubin, total 0.4 0.1 - 1.2 mg/dL [facility] Protein, pl 7.6 6.5 - 8.5 g/dL [facility] Albumin 4.4 3.5 - 5.0 g/dL [facility] Alk phos 51 40 - 130 Units/L [facility] ALT 18 7 - 45 Units/L [facility] AST 24 10 - 45 Units/L [facility] Blood 02/27/2024 7:49 AM CDT 02/27/2024 7:49 AM CDT us Jose Chairez MD PhD LAB BLOOD ORDERABLES Final Result [facility] One [facility] [place] [address] * CBC with auto differential (02/27/2024 7:49 AM CDT) WBC 7.9 3.8 - 9.9 K/cumm Comment:Testing performed by : [address] [address] Hgb 13.8 11.9 - 15.5 g/dL [facility] Comment:Testing performed by : [address] [address] Hct 41.3 35.6 - 45.5 % [facility] Comment:Testing performed by : [address] [address] Plt 224 150 - 400 K/cumm [facility] Comment:Testing performed by : [address] [address] MPV 9.3 9.1 - 12.3 fL [facility] RBC 4.76 3.90 - 5.20 M/cumm [facility] MCV 86.8 81.3 - 96.4 fL [facility] MCH 29.0 27.1 - 33.3 pg [facility] MCHC 33.4 32.3 - 35.7 g/dL [facility] RDW CV 13.1 11.1 - 14.9 % [facility] RDW SD 41.3 35.7 - 48.1 fL [facility] NRBC abs 0.00 0.00 - 0.01 K/cumm [facility] Blood 02/27/2024 7:49 AM CDT 02/27/2024 7:49 AM CDT Jose Chairez MD PhD LAB BLOOD ORDERABLES Final Result Performing Organization Address [facility] [place] [address] * Lactate dehydrogenase (LD) (02/27/2024 7:49 AM CDT) Lactate dehydrogenase (LDH) 197 100 - 250 Units/L Comment:Testing performed by : [facility], [address] [place] [address] Blood 02/27/2024 7:49 AM CDT 02/27/2024 7:49 AM CDT Jose Chairez MD PhD LAB BLOOD ORDERABLES Final Result Performing Organization Address [facility] de Phone Number [facility] [place] [address] * (ABNORMAL) Thyroid Function [place] (02/27/2024 7:49 AM CDT) Pathologist [facility] TSH 0.14(L) 0.30 - 4.20 mcIUnit/mL Blood 02/27/2024 7:49 AM CDT 02/27/2024 9:11 AM CDT Jose Chairez MD PhD LAB BLOOD ORDERABLES Final Result Performing Organization Address [facility] [place] [address] documented in this encounter Visit Diagnoses Diagnosis Metastatic melanoma (HCC)- Primary Melanoma of skin, site unspecified Malignant melanoma of unknown origin (HCC) 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) documented in this encounter Orders Appointment Requests Count Last Ordered Date Fi rst Ordered Date ONCBCN CLINIC APPOINTMENT REQUEST 2 024 02/06/2024 ONCBCN LAB APPOINTMENT 2 03/19/202402/26 ONCBCN RETURN CHEMO 1.5HRS 2 03/19/2024 0 02/27/2024 documented in this encounter Care Teams Household Appliances Salesperson Relationship Specialty Start Date End Date Becky Conroy ACCIDENT EXAMINER [address] [place] [address] PCP - General Nurse Practitioner 07/06/23 Jose Chairez MD PhD [address] [facility] [address] [place], [place] [id number] Medical Oncologist/Wind Turbine Performance Engineer Medical Oncology 08/14/23 Evelin Lofton MD [address] [place] [address] Referring Physician Cardiovascular Disease 08/14/23 documented as of this encounter
--- OUTSIDE RECORDS SUMMARY | 2024-09-17 04:21 | XMS_ITS | Encounter Summary ---
Author Organization [facility] Healthcare Address [address] [place] [address] Care Team Providers Care Plisse Machine Operator Helper Name Role Phone Becky Conroy NP Primary Care Provider [phone] Jose Chairez MD PhD Unavailable +1- [phone] Evelin Lofton MD Unavailable [phone] Reason for Visit * Episode Based Medications (Routine) - Closed Specialty Diagnoses / Procedures Referred By Contmarques t Referred To Contact Oncology Diagnoses Malignant melanoma of unknown origin (HCC) Jose Chairez MD PhD [address] [facility] [address] [place] [address] Phone: tel: fax: [address] [address] Phone: tel: fax: Referral ID Status Reason Start Date Expiration Date Visits Re quested Visits Authorized [id number] Closed 05/27/2024 09/04/2024 30 Encounter Details Date Type Department Care Team (Late st Contact Info) Description 04/09/2024 8:45 AM CDT Infusion [address] [address] Malignant melanoma of unknown origin (HCC) (Primary [...] on file 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 Gender Identity Not on file Sexual Orientation Not on file documented as of this encounter Last Filed Vital Signs Vital Sign Reading Time Taken Comments Blood Pressure 156/74 04/09/2024 8:21 AM CDT took meds at 7 am Pulse 69 04/09/2024 8:21 AM CDT Temperature - - Respiratory Rate 16 04/09/2024 8:21 AM CDT Oxygen Saturation 97% 04/09/2024 8:2 1 AM CDT Inhaled Oxygen Concentration - - Weight 65.9 kg (145 lb 3.2 oz) 04/09/2024 8:21 AM CDT Height - - Body Mass Index 24.16 11/29/2023 8:23 AM CDT documented in this encounter Nursing Notes * Daryl Torres, RN - 04/09/2024 8:45 AM CDT Oncology Nursing Note [facility] Magui Baker is a 79 y.o. female who presents for treatment cycle 12, day 1 of [id number] Day Cycles. Pre-treatment Nursing Assessment Nursing Assessment LOC: Alert, Awake Fatigue: None Any falls since your last visit?: No Orientation: Oriented x4 Behavior: Calm Speech: Clear Language: No aphasia Vision: At baseline Peripheral Neuropathy: No Oral Mucosa Grade: Normal (0) Pt states has potential to be ?: N/A Shortness of Breath?: No Cough: Absent Appetite: Good What diet do you follow at home?: reg Nausea/Vomiting: No Diarrhea: No Constipation: No Last BM Date: 04/09/24 Rash Location: mild, has topical cream Swelling: No Additional Notes: Patient received today's treatment thru right forearm,24g, peripheral iv. Enc Vitals BP: 156/74 (took meds at 7 am) (04/09/2024 8:21 AM) Pulse: 69 (04/09/2024 8:21 AM) Resp: 16 (04/09/2024 8:21 AM) Temp src: Oral (04/09/2024 8:21 AM) SpO2: 97 % (04/09/2024 8:21 AM) Weight: 65.9 kg (145 lb 3.2 oz) (04/09/2024 8:21 AM) Pain Score: 0 - No pain Treatment Patient: met treatment parameters Pre blood return: Mariposa Baker tolerated treatment well. Patient was frequently observed and monitored throughout the administration of their treatment. Post blood return: Brisk IV access post infusion: NS Patient Education Treatment Education: Information/teaching given to patient including symptom management Response: Verbalizes understanding Discharge Plan Discharge instructions [...] mL/hr, Administer over 30 Minutes, Once, On Mon04/09/24 at 0945, For 1 dose, Use 0.2-5 micron filter, low-sorbing, low protein binding.Indications:Malignan t melanoma of unknown origin (HCC) New Bag 04/09/2024 10:12 AM CDT 200 mg 236 mL/hr documented in this encounter Orders Medications Ordered That Stalin ht Not Have Been Administered Count Last Ordered Date First Ordered Date pembrolizumab (KEYTRUDA) 200 mg in sodium chloride 0.9% 100 mL IVPB 1 04/09/2024 Nursing Count Last Ordered Date First Orde red Date ONCBCN PROVIDER COMMUNICATION 2 1 ONCBCN TREATMENT PARAMETERS 3 1 04/09/2024 Appointment Requests Count Last Ordered Date Fi rst Ordered Date ONCBCN RETURN CHEMO 1.5HRS 1 04/09/2024 documented in this encounter Care Teams Plisse Machine Operator Helper Relationship Specialty Start Date End Date Becky Conroy SENIOR STACK ENGINEER [address] [place] [address] PCP - General Nurse Practitioner 07/06/23 Jose Chairez MD PhD [address] [facility] [address] [place], [place] [id number] Medical Oncologist/Design Maintenance Engineer Medical Oncology 08/14/23 Evelin Lofton MD [address] [place] [address] Referring Physician Cardiovascular Disease 08/14/23 documented as of this encounter
--- OUTSIDE RECORDS SUMMARY | 2024-09-17 04:21 | XMS_ITS | Encounter Summary ---
Author Organization [facility] Address [address] [place] [address] Phone Care Team Providers Care Kardex Clerk Name Role Phone Becky Conroy NP Primary Care Provider [phone] [phone] Jose Chairez MD PhD Unavailable [phone]- [phone] Evelin Lofton MD Unavailable Encounter Details Date Type Department Care Team (Late st Contact Info) Description 04/03/2024 Orders Only [facility] Oncology [address] [place] [address] Jose Chairez MD PhD [address] [facility] [address] [place], [place] [phone] Social History Tobacco Use Types Packs/Day Years [...] on file 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 [address] [place] [address] Medical Oncologist/Live Truck Operator Medical Oncology 08/14/23 Evelin Lofton MD [address] [place] [address] Referring Physician Cardiovascular Disease 08/14/23 documented as of this encounter
--- OUTSIDE RECORDS SUMMARY | 2024-09-17 04:21 | XMS_ITS | Encounter Summary ---
Author Organization [facility] Address [address] [place] [address] Phone Care Team Providers Care Service Order Dispatcher Name Role Phone Becky Conroy NP Primary Care Provider [phone] Jose Chairez MD PhD Unavailable [phone]- [phone] Evelin Lofton MD Unavailable [phone] Reason for Visit * Episode Based Medications (Routine) - Closed Specialty Diagnoses / Procedures Referred By Contac t Referred To Contact Oncology Diagnoses Malignant melanoma of unknown origin (HCC) Jose Chairez MD PhD [address] [facility] [address] [place] [address] Phone: tel: fax: [facility] [address] [place] [address] Phone: tel: fax: Referral ID Status Reason Start Date Expiration Date Visits Re quested Visits Authorized [id number] Closed 05/27/2024 09/04/2024 1 30 Encounter Details Date Type Department Care Team (Late st Contact Info) Description 02/27/2024 8:15 AM CDT Lab [facility] Oncology [address] [place] [phone] Malignant melanoma of unknown origin (HCC) Social [...] on file 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 Gender Identity Not on file Sexual Orientation Not on file documented as of this encounter Plan of Treatment Not on file documented as of this encounter Visit Diagnoses Diagnosis Malignant melanoma of unknown origin (HCC) documented in this encounter Orders Appointment Requests Count Last Ordered Date Fi rst Ordered Date ONCBCN LAB APPOINTMENT 1 02/27/2024 documented in this encounter Care Teams Service Order Dispatcher Relationship Specialty Start Date End Date Becky Conroy NP [address] [place] [address] PCP - General Nurse Practitioner 07/06/23 Jose Chairez MD PhD [address] [facility] [address] [place] [address] Medical Oncologist/Moss Bleacher Medical Oncology 08/14/23 Evelin Lofton MD [address] [place] [address] Referring Physician Cardiovascular Disease 08/14/23 documented as of this encounter
--- OUTSIDE RECORDS SUMMARY | 2024-09-17 04:21 | XMS_ITS | Encounter Summary ---
Author Organization [facility] Healthcare Address [address] [place] [address] Care Team Providers Care Prekindergarten Teacher Name Role Phone Becky Conroy NP Primary Care Provider [phone] Jose Chairez MD PhD Unavailable [phone]- [phone] Evelin Lofton MD Unavailable [phone] Reason for Visit * Reason Comments Immunotherapy * Episode Based Medications (Routine) - Closed Specialty Diagnoses / Procedures Referred By Contac t Referred To Contact Oncology Diagnoses Malignant melanoma of unknown origin (HCC) Jose Chairez MD PhD 52[address] [facility] [address] [place] [address] Phone: tel: fax: [address] [address] Phone: tel: fax: Referral ID Status Reason Start Date Expiration Date Visits Re quested Visits Authorized [id number] Closed 05/27/2024 09/04/2024 30 Encounter Details Date Type Department Care Team (Late st Contact Info) Description 03/19/2024 11:30 AM CDT Infusion [address] [phone] Malignant melanoma of unknown origin (HCC) (Primary [...] on file 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 Magui Baker is a 79 y.o. female who presents for treatment cycle 11, day 1 of Pembrolizumab. Pre-treatment Nursing Assessment Nursing Assessment LOC: Alert Fatigue: None Any falls since your last visit?: No Orientation: Oriented x4 Behavior: Calm Speech: Clear Language: No aphasia Vision: At baseline Peripheral Neuropathy: No Pt states has potential to be ?: N/A Shortness of Breath?: No Appetite: Good Nausea/Vomiting: No Diarrhea: No Constipation: No Additional Notes: Enc Vitals BP: 140/69 (03/19/2024 10:09 AM) Pulse: 70 (03/19/2024 10:09 AM) Resp: 16 (03/19/2024 10:09 AM) Temp: 36.3 ??C (97.4 ??F) (03/19/2024 10:09 AM) Temp src: Oral (03/19/2024 10:09 AM) Weight: 65.8 kg (145 lb) (03/19/2024 10:09 AM) Pain Score: 0 - No pain Treatment Patient: met treatment parameters Pre blood return: Mariposa Magui Baker tolerated treatment well. Patient was [...] Ambulatory Accompanied by: Self Discharged To: Home documented in this encounter [...] mL/hr, Administer over 30 Minutes, Once, On Mon03/19/24 at 1200, For 1 dose, Use 0.2-5 micron filter, low-sorbing, low protein binding.Indications:Malignant melanoma of unknown origin (HCC) New Bag 03/19/2024 1:25 PM CDT 200 mg 236 mL/hr documented in this encounter Orders Medications Ordered That Stalin ht Not Have Been Administered Count Last Ordered Date First Ordered Date pembrolizumab (KEYTRUDA) 200 mg in sodium chloride 0.9% 100 mL IVPB 1 03/19/2024 Nursing Count Last Ordered Date First Orde red Date ONCBCN TREATMENT PARAMETERS 3 1 03/19/2024 Appointment Requests Count Last Ordered Date Fi rst Ordered Date ONCBCN RETURN CHEMO 1.5HRS 1 03/19/2024 documented in this encounter Care Teams Prekindergarten Teacher Relationship Specialty Start Date End Date Becky Conroy NP [address] [place] [address] PCP - General Nurse Practitioner 07/06/23 Jose Chairez MD PhD [address] [facility] [address] [place] [address] Medical Oncologist/Delivery Driver Assistant Medical Oncology 08/14/23 Evelin Lofton MD [address] [place] [address] Referring Physician Cardiovascular Disease 08/14/23 documented as of this encounter
--- OUTSIDE RECORDS SUMMARY | 2024-09-17 04:22 | XMS_ITS | Encounter Summary ---
Author Organization [facility] Address [address] [place] [address] Phone Care Team Providers Care Commercial Drone Pilot Name Role Phone Becky Conroy NP Primary Care Provider [phone] Jose Chairez MD PhD Unavailable [phone]- [phone] Evelin Lofton MD Unavailable [phone] Reason for Visit * Episode Based Medications (Routine) - Closed Specialty Diagnoses / Procedures Referred By Contac t Referred To Contact Oncology Diagnoses Malignant melanoma of unknown origin (HCC) Jose Chairez MD PhD [address] [facility] [address] [place] [address] Phone: tel: fax: [facility] [address] [place] [address] Phone: tel: fax: Referral ID Status Reason Start Date Expiration Date Visits Re quested Visits Authorized [id number] Closed 05/27/2024 09/04/2024 1 30 Encounter Details Date Type Department Care Team (Late st Contact Info) Description 10/24/2023 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 Monthly or less 10/11/2023 Q2: How many drinks containi ng alcohol do you have on a typical day when you are drinking? 1 or 2 10/11/2023 Q3: How often do you have si x or more drinks on one occasion? 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 Gender Identity Not on file Sexual Orientation Not on file documented as of this encounter Plan of Treatment Not on file documented as of this encounter Visit Diagnoses Diagnosis Malignant melanoma of unknown origin (HCC) documented in this encounter Orders Appointment Requests Count Last Ordered Date Fi rst Ordered Date ONCBCN LAB APPOINTMENT 1 10/24/2023 documented in this encounter Care Teams Commercial Drone Pilot Relationship Specialty Start Date End Date Becky Conroy NP [address] [place] [address] PCP - General Nurse Practitioner 07/06/23 Jose Chairez MD PhD [address] [facility] [address] [place] [address] Medical Oncologist/Companion Caregiver Medical Oncology 08/14/23 Evelin Lofton MD [address] [place] [address] Referring Physician Cardiovascular Disease 08/14/23 documented as of this encounter
--- OUTSIDE RECORDS SUMMARY | 2024-09-17 04:22 | XMS_ITS | Encounter Summary ---
Author Organization [facility] Address [address] [place] [address] Phone Care Team Providers Care Planner Internship Name Role Phone Becky Conroy NP Primary Care Provider [phone] Jose Chairez MD PhD Unavailable [phone]- [phone] Evelin Lofton MD Unavailable [phone] Reason for Referral * Diagnostic Imaging (Routine) - Closed Specialty Diagnoses / Procedures Referred By Contac t Referred To Contact Radiology Diagnoses Metastatic malignant melanoma (HCC) Procedures IR Drainage Catheter Exchange Landon Davis MD [address] [facility] [phone] [place] [address] Phone: tel: fax: [facility] [address] [place] [address] Referral ID Status Reason Start Date Expiration Date Visits Re quested Visits Authorized [id number] Closed 11/02/2023 12/01/2024 1 1 TED WINDER Encounter Details Date Type Department Care Team (Latest Contact Info) Description 11/02/2023 Orders Only [facility] Department of Hepatobiliary, Pancreatic, & Gastrointestinal Surgery [address] [facility] [address] Floor, [place] [address] Landon Davis MD [address] [facility] [id number] [place] [address] Metastatic malignant melanoma (HCC) (Primary Dx) Social History Tobacco Use [...] on file Legal Sex Female 1:54 AM WORSTED WINDER Gender Identity Not on file Sexual Orientation Not on file documented as of this encounter Plan of Treatment Not on file documented as of this encounter Results * IR Drainage Catheter Exchange (11/10/2023 10:11 AM WORSTED WINDER) Anatomical Region Laterality Modality Body N/A Radio Fluoroscop y 11/10/2023 2:05 PM WORSTED WINDER Impressions 11/10/2023 2:05 PM WORSTED WINDER 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 Successful image guided sclerosis. Catheter was exchanged to facilitate drainage and resolution. PLAN: Continue to monitor catheter output as well as the patient's clinical condition. ?? Sample of fluid was sent for cell count. The catheter should not be flushed. ?? The patient will follow-up with us in ??2 weeks for repeat sclerosis and drain evaluation. If questions arise, please contact us by calling [phone]. Electronically signed by: Landon Ignacio PA-C Narrative 11/10/2023 2:05 PM WORSTED WINDER EXAMINATION: ??DRAINAGE CATHETER EVALUATION AND EXCHANGE HISTORY: ??78-year-old female with history of left axillary lymph node dissection who has a surgical drain in place with 100 cc clear yellow output daily. Patient referred for drain evaluation, exchange and possible sclerosis. PROVIDER PRESENCE: Landon Ignacio PA-C, was present from the beginning to the end of the procedure. ?? SEDATION: ??No sedation TECHNIQUE: ??Prior to beginning the procedure, [place] Protocol was used to confirm the patient's identity and planned procedure. Fluoroscopy time has been recorded in the electronic medical record. Maximum sterile barriers including cap, mask, hand hygiene, sterile gloves, sterile gown, large sterile drape and 2% chlorhexidine for cutaneous antisepsis were used. After obtaining a preschool teacher image, the catheter was injected with dilute contrast and multiple diagnostic fluoroscopic spot images were obtained. The skin overlying the collection was sterilely prepped, draped and infiltrated with 1% buffered lidocaine. The catheter was then exchanged over a [employer] guidewire for a new 16 Zimbabwean cope catheter. ??Limited contrast injection confirmed appropriate placement of the catheter. The catheter was secured in place with a silk stitch. ??A sterile dressing was applied. The absolute volume of the cavity was measured. 5 cc of absolute ethanol was instilled into the cavity and allowed to dwell for 5 minutes. This was repeated 1 time. The catheter was then connected to suction drainage. ESTIMATED BLOOD LOSS: Minimal. CONDITION: Stable DISCHARGED TO: ??Recovery and then to Home. FINDINGS: ??Images from the catheter injection demonstrate a discrete cavity measuring 15 cc size. The existing surgical drain was occluded. The catheter was draining clear yellow fluid. Images from the catheter exchange show the catheter tip centered in the left axillary cavity. Procedure Note Landon Ignacio PA - 11/10/2023 EXAMINATION: DRAINAGE CATHETER EVALUATION AND EXCHANGE HISTORY: 78-year-old female with history of left axillary lymph node dissection who has a surgical drain in place with 100 cc clear yellow output daily. Patient referred for drain evaluation, exchange and possible sclerosis. PROVIDER PRESENCE: Landon Ignacio PA-C, was present from the beginning to the end of the procedure. SEDATION: No sedation TECHNIQUE: Prior to beginning the procedure, [place] Protocol was used to confirm the patient's identity and planned procedure. Fluoroscopy time has been recorded in the electronic medical record. Maximum sterile barriers including cap, mask, hand hygiene, sterile gloves, sterile gown, large sterile drape and 2% chlorhexidine for cutaneous antisepsis were used. After obtaining a preschool teacher image, the catheter was injected with dilute contrast and multiple diagnostic fluoroscopic spot images were obtained. The skin overlying the collection was sterilely prepped, draped and infiltrated with 1% buffered lidocaine. The catheter was then exchanged over a [employer] guidewire for a new 16 [place]an cope catheter. Limited contrast injection confirmed appropriate placement of the catheter. The catheter was secured in place with a silk stitch. A sterile dressing was applied. The absolute volume of the cavity was measured. 5 cc of absolute ethanol was instilled into the cavity and allowed to dwell for 5 minutes. This was repeated 1 time. The catheter was then connected to suction drainage. ESTIMATED BLOOD LOSS: Minimal. CONDITION: Stable DISCHARGED TO: Recovery and then to Home. FINDINGS: Images from the catheter injection demonstrate a discrete cavity measuring 15 cc size. The existing surgical drain was occluded. The catheter was draining clear yellow fluid. Images from the catheter exchange show the catheter tip centered in the left axillary cavity. 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 Successful image guided sclerosis. Catheter was exchanged to facilitate drainage and resolution. PLAN: Continue to monitor catheter output as well as the patient's clinical condition. Sample of fluid was sent for cell count. The catheter should not be flushed. The patient will follow-up with us in 2 weeks for repeat sclerosis and drain evaluation. If questions arise, please contact us by calling [phone]. Electronically signed by: Landon Ignacio PA-C us Landon Davis MD IMG IR PROCEDURES Final Result documented in this encounter Visit Diagnoses Diagnosis Metastatic malignant melanoma (HCC)- Primary Metastatic malignant melanoma (HCC) documented in this encounter Care Teams Planner Internship Relationship Specialty Start Date End Date Becky Conroy NP [address] [place] [address] PCP - General Nurse Practitioner 07/06/23 Jose Chairez MD PhD [address] [facility] [address] [place], [place] [id number] Medical Oncologist/Loftsman/Woman Medical Oncology 08/14/23 Evelin Lofton MD [address] [place] [address] Referring Physician Cardiovascular Disease 08/14/23 documented as of this encounter
--- OUTSIDE RECORDS SUMMARY | 2024-09-17 04:22 | XMS_ITS | Encounter Summary ---
Author Organization [facility] Address [address] [place] [address] Phone Care Team Providers Care Carton Forming Machine Operator Name Role Phone Becky Conroy NP Primary Care Provider [phone] [phone] Jose Chairez MD PhD Unavailable [phone]- [phone] Evelin Lofton MD Unavailable Reason for Visit * Episode Based Medications (Routine) - Closed Specialty Diagnoses / Procedures Referred By Contac t Referred To Contact Oncology Diagnoses Malignant melanoma of unknown origin (HCC) Jose Chairez MD PhD [address] [facility] [address] [place] [address] Phone: tel: fax: [facility] [address] [place] [phone] Phone: tel: fax: Referral ID Status Reason Start Date Expiration Date Visits Re quested Visits Authorized [id number] Closed 05/27/2024 09/04/2024 1 30 Encounter Details Date Type Department Care Team (Late st Contact Info) Description 12/05/2023 10:00 AM CDT Lab [facility] Oncology [address] [place] [phone] Malignant melanoma of unknown origin (HCC) Social [...] on file 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 Gender Identity Not on file Sexual Orientation Not on file documented as of this encounter Plan of Treatment Not on file documented as of this encounter Visit Diagnoses Diagnosis Malignant melanoma of unknown origin (HCC) documented in this encounter Orders Appointment Requests Count Last Ordered Date Fi rst Ordered Date ONCBCN LAB APPOINTMENT 1 12/05/2023 documented in this encounter Care Teams Carton Forming Machine Operator Relationship Specialty Start Date End Date Becky Conroy NP [address] [place] [address] PCP - General Nurse Practitioner 07/06/23 Jose Chairez MD PhD [address] [facility] [address] [place] [address] Medical Oncologist/Log Roller Medical Oncology 08/14/23 Evelin Lofton MD [address] [place] [address] Referring Physician Cardiovascular Disease 08/14/23 documented as of this encounter
--- OUTSIDE RECORDS SUMMARY | 2024-09-17 04:22 | XMS_ITS | Encounter Summary ---
Author Organization [facility] Healthcare Address [address] [place] [address] Care Team Providers Care Director Of Quality Improvement Name Role Phone Becky Conroy NP Primary Care Provider [phone] Jose Chairez MD PhD Unavailable [phone] Evelin Lofton MD Unavailable [phone] Reason for Referral * MRI/CAT/PET Scan (Routine) - Closed Specialty Diagnoses / Procedures Referred By Contac t Referred To Contact Radiology Diagnoses Malignant melanoma of unknown origin (HCC) Procedures PET/CT FDG Skull to Thigh Jose Chairez MD PhD [address] [address] Phone: tel: fax: [facility] Referral ID Status Reason Start Date Expiration Date Visits Re quested Visits Authorized [id number] Closed 10/24/2023 11/22/2024 2 1 Reason for Visit * MRI/CAT/PET Scan (Routine) - Closed Specialty Diagnoses / Procedures Referred By [facility] Referred To Contact Radiology Diagnoses Malignant melanoma of unknown origin (HCC) Procedures PET/CT FDG Skull to Thigh Jose Chairez MD PhD [address] [address] Phone: tel: fax: [facility] Referral ID Status Reason Start Date Expiration Date Visits Re quested Visits Authorized [id number] Closed 10/24/2023 11/22/2024 2 1 Encounter Details Date Type Department Care Team (Latest Contact Info) Description 12/25/2023 10:11 AM CDT - 12/25/2023 11:59 PM CDT Hospital Encounter [facility] [address] [place] [address] Malignant melanoma of unknown origin (HCC) Discharge [...] on file Legal Sex Female 1:54 AM STATE PILOT Gender Identity Not on file Sexual Orientation [...] 10/31/2023 4 hydrOXYzine (ATARAX) 10 mg tablet Take 1 tablet (10 mg total) by mouth nightly as needed for itching 30 tablet 2 10/06/2023 4 prochlorperazine (Compazine) 10 mg tabletIndications: Malignant melanoma of unknown origin (HCC) Take 1 tablet (10 mg total) by mouth every 6 (six) hours as needed for nausea or vomiting 30 tablet 3 08/07/2023 4 triamcinolone (KENALOG) 0.1 % cream Apply topically 2 (two) times a day 80 g 3 08/29/2023 4 documented as of this encounter Discharge Disposition Disposition Code Departure Means Destination Discharge to home or self care documented in this encounter Plan of Treatment Not on file documented as of this encounter Procedures Procedure Name Priority Date/Time Associated Diagnosis Comments PET/CT FDG SKULL TO THIGH Schedule Routine, Read Routine (OP Routine) 12/25/2023 12:04 PM CDT Malignant melanoma of unknown origin (HCC) documented in this encounter Results * PET/CT FDG Skull to Thigh (12/25/2023 12:04 PM CDT) Anatomical Region Laterality Modality N/A Positron Emissio n Tomography (PET) 12/25/2023 2:04 PM CDT Impressions 12/25/2023 2:43 PM CDT 1. Interval changes of left axillary lymph node dissection without evidence of residual hypermetabolic disease. 2. Stable indeterminate mildly hypermetabolic right middle lobe lung nodule. Recommend follow up imaging with CT chest. 3. New diffuse mildly avid left breast skin thickening, likely related to lymphedema in the setting of recent axillary lymph node dissection. Dictated by: Luis Garvey MD, PHD The radiology attending physician has personally reviewed this study, and had reviewed and/or edited this written report and agrees with it. Electronically signed by: Lorie Gil MD, Ph.D Narrative 12/25/2023 2:43 PM CDT EXAMINATION: TUMOR FDG-PET/CT IMAGING DATE OF STUDY: ??12/25/2023 SCANNER: [facility] RADIOPHARMACEUTICAL: 17.07 mCi F-18 Fluorodeoxyglucose (FDG) i.v. Injection site: Right hand HISTORY: 78-year-old with melanoma of unknown primary site diagnosed in June 2023 via left axillary biopsy. ??Immunotherapy initiated 09/19/2023. ??Status post left axillary lymph node dissection 10/11/2023 with necrotic, nonviable tumor involving 1 of 12 nodes. The study is requested for treatment monitoring during therapy. Subsequent treatment strategy. TECHNIQUE: ?? The patient's fasting blood glucose level, measured by glucometer before injection of FDG, was 101 mg/dL. ?? After intravenous administration of FDG, noncontrast CT images were obtained for attenuation correction and for fusion with emission PET images to allow for anatomical localization of PET findings. Emission PET images were then obtained. ??The study was interpreted on the [employer] workstation. ??The mean liver SUV (reported for quality assurance representative purposes) is 2.5. ?? The total scanned area was skull vertex to the knees. ??Images were obtained starting 64 minutes after injection of tracer. COMPARISON: PET/CT 10/04/2023, 07/31/2023 DESCRIPTORS OF LESION FDG AVIDITY: Minimal: ? <= blood pool ? Mild: ?> blood pool and <= liver ? Moderate: ?? > liver and <= 2x SUVmax liver ? Moderate to marked: ?? >2x SUVmax liver and <= 3x SUVmax liver ? Marked: ? > 3x SUVmax liver ? FINDINGS: Interval surgical changes of left axillary lymph node dissection with mildly FDG avid soft tissue thickening in the surgical bed. ??No discrete nodule or hypermetabolic lymph node identified. There is new diffuse mildly avid left breast skin thickening, likely related to lymphedema in the setting of recent axillary lymph node dissection. Stable mildly FDG avid 1.2 x 0.8 cm right middle lobe nodule with maximum SUV 2.6, previously 3.1 (image 139). No new suspicious sites of disease. Additional CT findings: Left maxillary sinus mucus retention cyst. Carotid artery calcifications. ??Small calcified nodules in the thyroid gland. ??Coronary artery calcifications are present. Calcified pulmonary nodules and hilar and mediastinal lymph nodes in keeping with old granulomatous disease. ??Changes of cholecystectomy. Granulomas in the spleen are again seen. ??Abdominal aorta atherosclerosis without aneurysmal dilatation. ??Surgical changes again seen along the anterior abdominal wall. ??Scattered colonic diverticuli and changes of distal colonic resection. ??Uterus is absent. Procedure Note Lorie Larios MD PhD - 12/25/2023 EXAMINATION: TUMOR FDG-PET/CT IMAGING DATE OF STUDY: 12/25/2023 SCANNER: [facility] RADIOPHARMACEUTICAL: 17.07 mCi F-18 Fluorodeoxyglucose (FDG) i.v. Injection site: Right hand HISTORY: 78-year-old with melanoma of unknown primary site diagnosed in June 2023 via left axillary biopsy. Immunotherapy initiated 09/19/2023. Status post left axillary lymph node dissection 10/11/2023 with necrotic, nonviable tumor involving 1 of 12 nodes. The study is requested for treatment monitoring during therapy. Subsequent treatment strategy. TECHNIQUE: The patient's fasting blood glucose level, measured by glucometer before injection of FDG, was 101 mg/dL. After intravenous administration of FDG, noncontrast CT images were obtained for attenuation correction and for fusion with emission PET images to allow for anatomical localization of PET findings. Emission PET images were then obtained. The study was interpreted on the [employer] workstation. The mean liver SUV (reported for quality assurance representative purposes) is 2.5. The total scanned area was skull vertex to the knees. Images were obtained starting 64 minutes after injection of tracer. COMPARISON: PET/CT 10/04/2023, 07/31/2023 DESCRIPTORS OF LESION FDG AVIDITY: Minimal: <= blood pool Mild: > blood pool and <= liver Moderate: > liver and <= 2x SUVmax liver Moderate to marked: >2x SUVmax liver and <= 3x SUVmax liver Marked: > 3x SUVmax liver FINDINGS: Interval surgical changes of left axillary lymph node dissection with mildly FDG avid soft tissue thickening in the surgical bed. No discrete nodule or hypermetabolic lymph node identified. There is new diffuse mildly avid left breast skin thickening, likely related to lymphedema in the setting of recent axillary lymph node dissection. Stable mildly FDG avid 1.2 x 0.8 cm right middle lobe nodule with maximum SUV 2.6, previously 3.1 (image 139). No new suspicious sites of disease. Additional CT findings: Left maxillary sinus mucus retention cyst. Carotid artery calcifications. Small calcified nodules in the thyroid gland. Coronary artery calcifications are present. Calcified pulmonary nodules and hilar and mediastinal lymph nodes in keeping with old granulomatous disease. Changes of cholecystectomy. Granulomas in the spleen are again seen. Abdominal aorta atherosclerosis without aneurysmal dilatation. Surgical changes again seen along the anterior abdominal wall. Scattered colonic diverticuli and changes of distal colonic resection. Uterus is absent. IMPRESSION: 1. Interval changes of left axillary lymph node dissection without evidence of residual hypermetabolic disease. 2. Stable indeterminate mildly hypermetabolic right middle lobe lung nodule. Recommend follow up imaging with CT chest. 3. New diffuse mildly avid left breast skin thickening, likely related to lymphedema in the setting of recent axillary lymph node dissection. Dictated by: Luis Garvey MD, PHD The radiology attending physician has personally reviewed this study, and had reviewed and/or edited this written report and agrees with it. Electronically signed by: Lorie Gil MD, Ph.D Jose Chairez MD PhD IMG PET PROCEDURES F inal Result documented in this encounter Visit Diagnoses Diagnosis Malignant melanoma of unknown origin (HCC) documented in this encounter Administered Medications Inactive Administered Medications - up to 3 most recent administrations Medication Order MAR Action Action Date Dose Rate Site fludeoxyglucose F-18 (FDG) injection 17.07 millicurie 17.07 millicurie, intravenous, Once in imaging, radiopharmaceutical, Starting on 12/25/23 at 1042, For 1 dose Given 12/25/2023 10:33 AM CDT 17.07 millicuries Right Hand documented in this encounter Orders Medications Ordered That Stalin ht Not Have Been Administered Count Last Ordered Date First Ordered Date fludeoxyglucose F-18 (FDG) i njection 17.07 millicurie 1 12/25/2023 documented in this encounter Care Teams Director Of Quality Improvement Relationship Specialty Start Date End Date Becky Conroy NP [address] [place] [address] PCP - General Nurse Practitioner 07/06/23 Jose Chairez MD PhD [address] [facility] [address] [place] [address] Medical Oncologist/Catheterization Laboratory Technician Medical Oncology 08/14/23 Evelin Lofton MD [address] [place] [address] Referring Physician Cardiovascular Disease 08/14/23 documented as of this encounter
--- OUTSIDE RECORDS SUMMARY | 2024-09-17 04:22 | XMS_ITS | Encounter Summary ---
Author Organization [facility] Healthcare Address [address] [place] [address] Care Team Providers Care Warper Tender Name Role Phone Becky Conroy NP Primary Care Provider [phone] Jose Chairez MD PhD Unavailable [phone] Evelin Lofton MD Unavailable [phone] Reason for Visit * MRI/CAT/PET Scan (Routine) - Closed Specialty Diagnoses / Procedures Referred By Contac t Referred To Contact Radiology Diagnoses Malignant melanoma of unknown origin (HCC) Procedures PET/CT FDG Skull to Thigh Jose Chairez MD PhD [address] 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 [...] obtained. ??The study was interpreted on the [employer] workstation. ??The mean liver SUV (reported for quality assurance supervisor body purposes) is 2.5. ?? The total scanned [...] FDG-PET/CT IMAGING DATE OF STUDY: 12/25/2023 SCANNER: [facility] RADIOPHARMACEUTICAL: 17.07 mCi F-18 Fluorodeoxyglucose (FDG) i.v. [...] obtained. The study was interpreted on the [employer] workstation. The mean liver SUV (reported for quality assurance supervisor body purposes) is 2.5. The total scanned area [...] on filedocumented in this encounter Care Teams Warper Tender Relationship Specialty Start Date End Date Becky Conroy NP [address] [place] [address] PCP - General Nurse Practitioner 07/06/23 Jose Chairez MD PhD [address] [facility] [address] [place], [place] [id number] Medical Oncologist/Food Safety Field Specialist Medical Oncology 08/14/23 Evelin Lofton MD [address] [place] [address] Referring Physician Cardiovascular Disease 08/14/23 documented as of this encounter
--- OUTSIDE RECORDS SUMMARY | 2024-09-17 04:22 | XMS_ITS | Encounter Summary ---
Author Organization [facility] Healthcare Address [address] [place] [address] Care Team Providers Care Celluloid Trimmer Name Role Phone Becky Conroy NP Primary Care Provider [phone] Jose Chairez MD PhD Unavailable [phone] Evelin Lofton MD Unavailable [phone] Encounter Details Date Type Department Care Team (Late st Contact Info) Description 10/24/2023 8:10 AM [facility] Lab [facility] [address] [place] [id number] Malignant melanoma of unknown origin (HCC) [...] on file Legal Sex Female 1:54 AM [employer] Gender Identity Not on file Sexual Orientation Not on file documented as of this encounter Plan of Treatment Not on file documented as of this encounter Procedures Procedure Name Priority Date/Time Associated Diagnosis Comments EGFR STAT 10/24/2023 8:17 AM [facility] Malignant melanoma of unknown origin (HCC) DIFFERENTIAL AUTO Routine 10/24/2023 8:1 7 AM [facility] Malignant melanoma of unknown origin (HCC) THYROID FUNCTION CASCADE Routine 10/24/2023 8:17 AM [facility] Malignant melanoma of unknown origin (HCC) CBC WITH AUTO DIFFERENTIAL Routine 10/24/2023 8:17 AM [facility] Malignant melanoma of unknown origin (HCC) T4, FREE Routine 10/24/2023 8:17 AM [facility] Malignant melanoma of unknown origin (HCC) LACTATE DEHYDROGENASE Routine 10/24/2023 8:17 AM [facility] Malignant melanoma of unknown origin (HCC) COMPREHENSIVE METABOLIC PANEL STAT 10/24/2023 8:17 AM [facility] Malignant melanoma of unknown origin (HCC) documented in this encounter Results * (ABNORMAL) T4, free (10/24/2023 8:17 AM [facility]) Free T4 1.93(H) 0.90 - 1.70 ng/dL [facility] Blood 10/24/2023 8:17 AM [facility] 10/24/2023 9:32 AM [facility] Narrative [facility] - 10/24/2023 10:32 AM [facility] This test was reflexed from a TSH result. us Jose Chairez MD PhD LAB BLOOD ORDERABLES Edited Result - Final [facility] Department [place] [address] * eGFR (10/24/2023 8:17 AM [facility]) eGFR 88 >=60 mL/min/1. 73 m2 [facility] Comment: Interpretive Data Reference Interval Normal ?>/= [...] interpretive data was last reviewed 2021. Blood 10/24/2023 8:17 AM [facility] 10/24/2023 8:18 AM [facility] Jose Chairez MD PhD LAB BLOOD ORDERABLES Final Result [facility] Department [place] [address] * Differential, auto (10/24/2023 8:17 AM [facility]) Neutrophil abs 5.4 1.5 - 6.5 K/cumm [facility] Comment:Testing performed by : [facility], [address] [place] [address] Imm gran abs 0.0 0.0 - 0.1 K/cumm [facility] Lymphocyte abs 2.4 0.8 - 3.3 K/cumm [facility] Monocyte abs 0.7 0.2 - 0.8 K/cumm [facility] Eosinophil abs 0.2 0.0 - 0.5 K/cumm [facility] Basophil abs 0.1 0.0 - 0.1 K/cumm [facility] Neutrophil pct 61.2 % [facility] Comment: Interpretive Data Percent cell count reference ranges are not reported, since discordance with absolute values may lead to misinterpretation of CBC data. Current Interpretive Data was last revised on 2017. Imm gran pct 0.2 % [facility] Comment: Interpretive Data Percent cell count reference ranges are not reported, since discordance with absolute values may lead to misinterpretation of CBC data. Current Interpretive Data was last revised on 2017. Lymphocyte pct 27.4 % [facility] Comment: Interpretive Data Percent cell count reference ranges are not reported, since discordance with absolute values may lead to misinterpretation of CBC data. Current Interpretive Data was last revised on 2017. Monocyte pct 7.8 % [facility] Comment: Interpretive Data Percent cell count reference ranges are not reported, since discordance with absolute values may lead to misinterpretation of CBC data. Current Interpretive Data was last revised on 2017. Eosinophil pct 2.7 % [facility] Comment: Interpretive Data Percent cell count reference ranges are not reported, since discordance with absolute values may lead to misinterpretation of CBC data. Current Interpretive Data was last revised on 2017. Basophil pct 0.7 % [facility] Comment: Interpretive Data Percent cell count reference ranges are not reported, since discordance with absolute values may lead to misinterpretation of CBC data. Current Interpretive Data was last revised on 2017. Blood 10/24/2023 8:17 AM [facility] 10/24/2023 8:18 AM [facility] us Jose Chairez MD PhD LAB BLOOD ORDERABLES Final Result [facility] Department [place] [address] * Comprehensive metabolic panel (10/24/2023 8:17 AM [facility]) Sodium 143 135 - 145 mmol/L [facility] Comment:Testing performed by : [facility], [address] [place] [address] Potassium, pl 3.3 3.3 - 4.9 mmol/L [facility] Chloride 105 97 - 110 mmol/L [facility] CO2 28 22 - 32 mmol/L [facility] Anion gap 10 2 - 15 mmol/L [facility] BUN 17 6 - 25 mg/dL [facility] Creatinine 0.68 0.60 - 1.10 mg/dL [facility] Glucose 113 70 - 199 mg/dL [facility] Comment: Interpretive Data Fasting glucose >/= 126 [...] 2022. Calcium 10.0 8.5 - 10.3 mg/dL [facility] Bilirubin, total 0.4 0.1 - 1.2 mg/dL [facility] Protein, pl 7.2 6.5 - 8.5 g/dL [facility] Albumin 4.1 3.5 - 5.0 g/dL [facility] Alk phos 46 40 - 130 Units/L [facility] ALT 19 7 - 45 Units/L [facility] AST 19 10 - 45 Units/L [facility] Blood 10/24/2023 8:17 AM [facility] 10/24/2023 8:18 AM [facility] us Jose Chairez MD PhD LAB BLOOD ORDERABLES Final Result [facility] Department [place] [address] * CBC with auto differential (10/24/2023 8:17 AM [facility]) Pathologist [facility] WBC 8.8 3.8 - 9.9 K/cumm [facility] Comment:Testing performed by : [address] [address] Hgb 13.1 11.9 - 15.5 g/dL [facility] Comment:Testing performed by : [address] [address] Hct 39.2 35.6 - 45.5 % [facility] Comment:Testing performed by : [address] [address] Plt 237 150 - 400 K/cumm [facility] Comment:Testing performed by : [address] [address] MPV 9.5 9.1 - 12.3 fL [facility] RBC 4.47 3.90 - 5.20 M/cumm [facility] MCV 87.7 81.3 - 96.4 fL [facility] MCH 29.3 27.1 - 33.3 pg [facility] MCHC 33.4 32.3 - 35.7 g/dL [facility] RDW CV 13.0 11.1 - 14.9 % [facility] RDW SD 41.9 35.7 - 48.1 fL [facility] NRBC abs 0.00 0.00 - 0.01 K/cumm [facility] Blood 10/24/2023 8:17 AM [facility] 10/24/2023 8:18 AM [facility] us Jose Chairez MD PhD LAB BLOOD ORDERABLES Final Result [facility] Department [place] [address] * Lactate dehydrogenase (LD) (10/24/2023 8:17 AM [facility]) Lactate dehydrogenase (LDH) 179 100 - 250 Units/L [facility] Comment:Testing performed by : [address] [address] Blood 10/24/2023 8:17 AM [facility] 10/24/2023 8:18 AM [facility] us Jose Chairez MD PhD LAB BLOOD ORDERABLES Final Result [facility] Department [place] [address] * (ABNORMAL) Thyroid Function Holmes (10/24/2023 8:17 AM [facility]) TSH <0.01(L) 0.30 - 4.20 mcIUnit/mL [facility] Blood 10/24/2023 8:17 AM [facility] 10/24/2023 9:31 AM [facility] us Jose Chairez MD PhD LAB BLOOD ORDERABLES Final Result Performing Organization Address City/[facility] Co de Phone Number [facility] [place] [address] documented in this encounter Visit Diagnoses Diagnosis Malignant melanoma of unknown origin (HCC) documented in this encounter Care Teams Celluloid Trimmer Relationship Specialty Start Date End Date Becky Conroy SUPERVISOR [employer]ARING [address] [place] [address] PCP - General Nurse Practitioner 07/06/23 Jose Chairez MD PhD [address] [facility] [address] [place] [address] Medical Oncologist/Academic Support Specialist Medical Oncology 08/14/23 Evelin Lofton MD [address] [place] [address] Referring Physician Cardiovascular Disease 08/14/23 documented as of this encounter
--- OUTSIDE RECORDS SUMMARY | 2024-09-17 04:22 | XMS_ITS | Encounter Summary ---
Author Organization [facility] Address [address] [place] [address] Phone Care Team Providers Care Insurance Agent Name Role Phone Becky Conroy NP Primary Care Provider [phone] Jose Chairez MD PhD Unavailable [phone]- [phone] Evelin Lofton MD Unavailable [phone] Reason for Visit * Episode Based Medications (Routine) - Closed Specialty Diagnoses / Procedures Referred By Contac t Referred To Contact Oncology Diagnoses Malignant melanoma of unknown origin (HCC) Jose Chairez MD PhD [address] [facility] [address] [place] [address] Phone: tel: fax: [facility] [address] [address] Phone: tel: fax: Referral ID Status Reason Start Date Expiration Date Visits Re quested Visits Authorized [id number] Closed 05/27/2024 09/04/2024 1 30 Encounter Details Date Type Department Care Team (Late st Contact Info) Description 12/05/2023 10:30 AM CDT Office Visit [facility] Oncology [address] [place] [phone] Jose Chairez MD PhD [address] [facility] [address] [place] [address] Malignant melanoma of unknown origin [...] on file 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 Gender Identity Not on file Sexual Orientation Not on file documented as of this encounter Last Filed Vital Signs Vital Sign Reading Time Taken Comments Blood Pressure 152/81 12/05/2023 10:35 AM CDT Pulse 73 12/05/2023 10:35 AM CDT Temperature 36.4 ??C (97.6 ??F) 12/05/2023 10:35 AM C DT Respiratory Rate 17 12/05/2023 10:35 AM CDT Oxygen Saturation 93% 12/05/2023 10:35 AM CDT Inhaled Oxygen Concentration - - Weight 64.9 kg (143 lb) 12/05/2023 10:35 AM CDT Height - - Body Mass Index 23.8 11/29/2023 8:23 AM CDT documented in this encounter Progress Notes * Daryl Glasgow NP - 12/05/2023 10:30 AM CDT MEDICAL ONCOLOGY OUTPATIENT ROV NOTE Magui Cumminsmatthew : 1945 DATE OF VISIT: 12/05/23 Oncology History Overview Note Melanoma 07/03 - [...] nodes Note: Viable tumor is not identified. 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 Recovering from surgery with ongoing fatigue. 11/29/23. Drain removed. Healing well.Site intact without signs of infection. Does have some enlargement of left breast which may be related to lymph node dissection and recent drain removal. Will continue to monitor. No new or concerning lesions or masses. Continues Pembro every 3 weeks. Presents with niece. No Known Allergies Outpatient Encounter Medications as of 12/05/2023: clopidogreL (PLAVIX) 75 mg tablet, Take 1 [...] 14 days, Disp: 84 capsule, Rfl: 0 Review of Systems: Review of systems per HPI and otherwise all other systems are negative Performance Status: ECOG 0 Objective Vitals: Most Recent : BP: 152/81 Temp: 36.4 ??C (97.6 ??F) Temp src: Oral Pulse: 73 Resp: 17 SpO2: 93 % Weight: 64.9 kg (143 lb) Physical Exam: General Appearance: Well-appearing, in no apparent distress. ECO HEENT: Normocephalic, atraumatic. Pupils equal, round and reactive to light. Sclera anicteric. Oropharynx clear. Extremities: No edema, clubbing or cyanosis. LNs: L axillary scar - well healed, no redness, drain site healing well. Some enlargement of left breast. 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 Neuro: Non-focal. Lab/Radiology/Diagnostic Review: Recent Results (from the past 72 hour(s)) Comprehensive metabolic panel Collection Time: 12/05/23 9:59 AM Result Value Ref Range Sodium 139 135 - 145 mmol/L Potassium, pl 3.5 3.3 - 4.9 mmol/L Chloride 102 97 - 110 mmol/L CO2 27 22 - 32 mmol/L Anion gap 10 2 - 15 mmol/L BUN 25 6 - 25 mg/dL Creatinine 0.69 0.60 - 1.10 mg/dL Glucose 102 70 - 199 mg/dL Calcium 11.1 (H) 8.5 - 10.3 mg/dL Bilirubin, total 0.4 0.1 - 1.2 mg/dL Protein, pl 7.8 6.5 - 8.5 g/dL Albumin 4.4 3.5 - 5.0 g/dL Alk phos 49 40 - 130 Units/L ALT 17 7 - 45 Units/L AST 22 10 - 45 Units/L CBC with auto differential Collection Time: 12/05/23 9:59 AM Result Value Ref Range WBC 8.3 3.8 - 9.9 K/cumm Hgb 12.9 11.9 - 15.5 g/dL Hct 38.2 35.6 - 45.5 % Plt 287 150 - 400 K/cumm MPV 9.4 9.1 - 12.3 fL RBC 4.43 3.90 - 5.20 M/cumm MCV 86.2 81.3 - 96.4 fL MCH 29.1 27.1 - 33.3 pg MCHC 33.8 32.3 - 35.7 g/dL RDW CV 12.8 11.1 - 14.9 % RDW SD 40.2 35.7 - 48.1 fL NRBC abs 0.00 0.00 - 0.01 K/cumm Lactate dehydrogenase (LD) Collection Time: 12/05/23 9:59 AM Result Value Ref Range Lactate dehydrogenase (LDH) 186 100 - 250 Units/L Differential, auto Collection Time: 12/05/23 9:59 AM Result Value Ref Range Neutrophil abs 4.6 1.5 - 6.5 K/cumm Imm gran abs 0.0 0.0 - 0.1 K/cumm Lymphocyte abs 2.7 0.8 - 3.3 K/cumm Monocyte abs 0.7 0.2 - 0.8 K/cumm Eosinophil abs 0.3 0.0 - 0.5 K/cumm Basophil abs 0.1 0.0 - 0.1 K/cumm Neutrophil pct 55.1 % Imm gran pct 0.2 % Lymphocyte pct 32.4 % Monocyte pct 8.4 % Eosinophil pct 3.3 % Basophil pct 0.6 % eGFR Collection Time: 12/05/23 9:59 AM Result Value Ref Range eGFR 88 >=60 mL/min/1.73 m2 Radiology: None today Assessment/Plan Magui Baker is 78 y.o. woman [...] Monitor small lung nodule on subsequent scans. MRI brain - no evidence of melanoma mets, repeat annual. Due 07/2024 TSH - previously normal T4, but low TSH. Subclinical hyperthyroid now with elevated T4 and very lowTSH. 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 Not tachy, no sweating/diarrhea. Monitor. - Continue pembro with goal of one year total (08/08/23 - Ongoing) - Restaging in December (12/24) All questions answered. Reiterated that I remain available for additional questions that may arise going forward. Israel CORDERO-Rika Nurse Practitioner Medical Oncology Student completed by using [employer] Fluency Direct speaking software, therefore, transcriptionvariances may occur. documented in this encounter Plan of Treatment Not on file documented as of this encounter Results * (ABNORMAL) Comprehensive metabolic panel (12/26/2023 9:55 AM CDT) Sodium 140 135 - 145 mmol/L Comment:Testing performed by : [facility], [address] [place] [address] Potassium, pl 3.2(L) 3.3 - 4.9 mmol/L [facility] Chloride 102 97 - 110 mmol/L [facility] CO2 27 22 - 32 mmol/L [facility] Anion gap 11 2 - 15 mmol/L [facility] BUN 17 6 - 25 mg/dL [facility] Creatinine 0.64 0.60 - 1.10 mg/dL [facility] Glucose 99 70 - 199 mg/dL [facility] Comment: Interpretive Data Fasting glucose >/= [...] Calcium 10.3 8.5 - 10.3 mg/dL [facility] Bilirubin, total 0.6 0.1 - 1.2 mg/dL [facility] Protein, pl 8.2 6.5 - 8.5 g/dL [facility] Albumin 4.5 3.5 - 5.0 g/dL [facility] Alk phos 50 40 - 130 Units/L [facility] ALT 21 7 - 45 Units/L [facility] AST 25 10 - 45 Units/L [facility] Blood 12/26/2023 9:55 AM CDT 12/26/2023 9:57 AM CDT Daryl Glasgow NP LAB BLOOD ORDERABLES Valencia rory Result [facility] One [facility] Department [place] [address] * CBC with auto differential (12/26/2023 9:55 AM CDT) [facility] WBC 7.6 3.8 - 9.9 K/cumm Comment:Testing performed by : [address] [address] Hgb 14.2 11.9 - 15.5 g/dL [facility] Comment:Testing performed by : [address] [address] Hct 41.8 35.6 - 45.5 % [facility] Comment:Testing performed by : [address] [address] Plt 266 150 - 400 K/cumm [facility] Comment:Testing performed by : [address] [address] MPV 9.4 9.1 - 12.3 fL [facility] RBC 4.84 3.90 - 5.20 M/cumm [facility] MCV 86.4 81.3 - 96.4 fL [facility] MCH 29.3 27.1 - 33.3 pg [facility] MCHC 34.0 32.3 - 35.7 g/dL [facility] RDW CV 12.5 11.1 - 14.9 % [facility] RDW SD 39.6 35.7 - 48.1 fL [facility] NRBC abs 0.00 0.00 - 0.01 K/cumm [facility] Blood 12/26/2023 9:55 AM CDT 12/26/2023 9:57 AM CDT Daryl Glasgow AIRCRAFT MAINTENANCE MANAGER LAB BLOOD ORDERABLES Valencia l Result Performing Organization Address [facility] Co de Phone Number [facility] [address] * Lactate dehydrogenase (LD) (12/26/2023 9:55 AM CDT) Lactate dehydrogenase (LDH) 194 100 - 250 Units/L Comment:Testing performed by : [facility], [address] [place] [address] Blood 12/26/2023 9:55 AM CDT 12/26/2023 9:57 AM CDT Daryl Glasgow NP LAB BLOOD ORDERABLES Valencia l Result Performing Organization Address [facility] de Phone Number [facility] [place] [address] * (ABNORMAL) Thyroid Function [facility] (12/26/2023 9:55 AM CDT) Pathologist [facility] TSH <0.01(L) 0.30 - 4.20 mcIUnit/mL Blood 12/26/2023 9:55 AM CDT 12/26/2023 11:00 AM CDT Daryl Glasgow AIRCRAFT MAINTENANCE MANAGER LAB BLOOD ORDERABLES Valencia l Result Performing Organization Address [facility] Co de Phone Number [facility] [place] [address] documented in this encounter Visit Diagnoses Diagnosis Malignant melanoma of unknown origin (HCC)- Primary documented in this encounter Historical Medications * This list may reflect changes made after this encounter. nystatin cream Apply topically 2 (two) times a day 11/27/2023 added in this encounter Orders Appointment Requests Count Last Ordered Date Fi rst Ordered Date ONCBCN CLINIC APPOINTMENT REQUEST 2 024 12/05/2023 ONCBCN LAB APPOINTMENT 1 12/26/2023 ONCBCN RETURN CHEMO 1.5HRS 1 12/26/2023 documented in this encounter Care Teams Insurance Agent Relationship Specialty Start Date End Date Becky Conroy AIRCRAFT MAINTENANCE MANAGER [address] [place] [address] PCP - General Nurse Practitioner 07/06/23 Jose Chairez MD PhD [address] [facility] [address] [place] [address] Medical Oncologist/Topper Press Operator Automatic Medical Oncology 08/14/23 Evelin Lofton MD [address] [place] [address] Referring Physician Cardiovascular Disease 08/14/23 documented as of this encounter
--- OUTSIDE RECORDS SUMMARY | 2024-09-17 04:22 | XMS_ITS | Encounter Summary ---
Author Organization 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 Gender Identity Not on file Sexual Orientation Not on file documented as of this encounter Plan of Treatment Not on file documented as of this encounter Procedures Procedure Name Priority Date/Time Associated Diagnosis Comments EGFR STAT 12/05/2023 9:59 AM CDT Malignant melanoma of unknown origin (HCC) DIFFERENTIAL AUTO Routine 12/05/2023 9:5 9 AM CDT Malignant melanoma of unknown origin (HCC) THYROID FUNCTION CASCADE Routine 12/05/2023 9:59 AM CDT Malignant melanoma of unknown origin (HCC) CBC WITH AUTO DIFFERENTIAL Routine 12/05/2023 9:59 AM CDT Malignant melanoma of unknown origin (HCC) T4, FREE Routine 12/05/2023 9:59 AM CDT Malignant melanoma of unknown origin (HCC) LACTATE DEHYDROGENASE Routine 12/05/2023 9:59 AM CDT Malignant melanoma of unknown origin (HCC) COMPREHENSIVE METABOLIC PANEL STAT 12/05/2023 9:59 AM CDT Malignant melanoma of unknown origin (HCC) documented in this encounter Results * (ABNORMAL) T4, free (12/05/2023 9:59 AM CDT) Free T4 2.18(H) 0.90 - 1.70 ng/dL Blood 12/05/2023 9:59 AM CDT 12/05/2023 11:53 AM CDT Narrative [facility] - 12/05/2023 12:44 PM CDT This test was reflexed from a TSH result. us Daryl Glasgow NP LAB BLOOD ORDERABLES Edit ed Result - Final [facility] Department [place] [address] * eGFR (12/05/2023 9:59 AM CDT) eGFR 88 >=60 mL/min/1. 73 [...] interpretive data was last reviewed 2021. Blood 12/05/2023 9:59 AM CDT 12/05/2023 10:00 AM CDT us Daryl Glasgow NP LAB BLOOD ORDERABLES Valencia valadez Result [facility] Department [place] [address] * Differential, auto (12/05/2023 9:59 AM CDT) Pathologist [facility] Neutrophil abs 4.6 1.5 - 6.5 K/cumm Comment:Testing performed by : [facility], [address] [place] [address] Imm gran abs 0.0 0.0 - 0.1 K/cumm [facility] Lymphocyte abs 2.7 0.8 - 3.3 K/cumm [facility] Monocyte abs 0.7 0.2 - 0.8 K/cumm [facility] Eosinophil abs 0.3 0.0 - 0.5 K/cumm [facility] Basophil abs 0.1 0.0 - 0.1 K/cumm [facility] Neutrophil pct 55.1 % [facility] Comment: Interpretive Data Percent cell count reference ranges are not reported, since discordance with absolute values may lead to misinterpretation of CBC data. Current Interpretive Data was last revised on 2017. Imm gran pct 0.2 % [facility] Comment: Interpretive Data Percent cell count reference ranges are not reported, since discordance with absolute values may lead to misinterpretation of CBC data. Current Interpretive Data was last revised on 2017. Lymphocyte pct 32.4 % [facility] Comment: Interpretive Data Percent cell count reference ranges are not reported, since discordance with absolute values may lead to misinterpretation of CBC data. Current Interpretive Data was last revised on 2017. Monocyte pct 8.4 % [facility] Comment: Interpretive Data Percent cell count reference ranges are not reported, since discordance with absolute values may lead to misinterpretation of CBC data. Current Interpretive Data was last revised on 2017. Eosinophil pct 3.3 % [facility] Comment: Interpretive Data Percent cell count reference ranges are not reported, since discordance with absolute values may lead to misinterpretation of CBC data. Current Interpretive Data was last revised on 2017. Basophil pct 0.6 % [facility] Comment: Interpretive Data Percent cell count reference ranges are not reported, since discordance with absolute values may lead to misinterpretation of CBC data. Current Interpretive Data was last revised on 2017. Blood 12/05/2023 9:59 AM CDT 12/05/2023 10:00 AM CDT us Daryl Glasgow NP LAB BLOOD ORDERABLES Valencia valadez Result [facility] Department [place] [address] * (ABNORMAL) Thyroid Function [facility] (12/05/2023 9:59 AM CDT) [facility] TSH <0.01(L) 0.30 - 4.20 mcIUnit/mL Blood 12/05/2023 9:59 AM CDT 12/05/2023 11:38 AM CDT Daryl Glasgow ROOF FIXER LAB BLOOD ORDERABLES Valencia l Result Performing Organization Address City/[facility] Co de Phone Number [facility] Department [place] [address] * Lactate dehydrogenase (LD) (12/05/2023 9:59 AM CDT) [facility] Lactate dehydrogenase (LDH) 186 100 - 250 Units/L Comment:Testing performed by : [address] [address] Blood 12/05/2023 9:59 AM CDT 12/05/2023 10:00 AM CDT Daryl Glasgow NP LAB BLOOD ORDERABLES Valencia l Result Performing Organization Address [facility] de Phone Number [facility] [place] [address] * CBC with auto differential (12/05/2023 9:59 AM CDT) [facility] WBC 8.3 3.8 - 9.9 K/cumm Comment:Testing performed by : [address] [address] Hgb 12.9 11.9 - 15.5 g/dL [facility] Comment:Testing performed by : [address] [address] Hct 38.2 35.6 - 45.5 % [facility] Comment:Testing performed by : [address] [address] Plt 287 150 - 400 K/cumm [facility] Comment:Testing performed by : [address] [address] MPV 9.4 9.1 - 12.3 fL [facility] RBC 4.43 3.90 - 5.20 M/cumm [facility] MCV 86.2 81.3 - 96.4 fL [facility] MCH 29.1 27.1 - 33.3 pg [facility] MCHC 33.8 32.3 - 35.7 g/dL [facility] RDW CV 12.8 11.1 - 14.9 % [facility] RDW SD 40.2 35.7 - 48.1 fL [facility] NRBC abs 0.00 0.00 - 0.01 K/cumm [facility] Blood 12/05/2023 9:59 AM CDT 12/05/2023 10:00 AM CDT Daryl Glasgow NP LAB BLOOD ORDERABLES Valencia valadez Result Performing Organization Address City/State/[facility] Co de Phone Number [facility] Department [place] [address] * (ABNORMAL) Comprehensive metabolic panel (12/05/2023 9:59 AM CDT) [facility] Sodium 139 135 - 145 mmol/L Comment:Testing performed by : [facility], [address] [place] [address] Potassium, pl 3.5 3.3 - 4.9 mmol/L [facility] Chloride 102 97 - 110 mmol/L [facility] CO2 27 22 - 32 mmol/L [facility] Anion gap 10 2 - 15 mmol/L [facility] BUN 25 6 - 25 mg/dL [facility] Creatinine 0.69 0.60 - 1.10 mg/dL [facility] [...] interpretive data was last revised 2022. Calcium 11.1(H) 8.5 - 10.3 mg/dL [facility] Bilirubin, total 0.4 0.1 - 1.2 mg/dL [facility] Protein, pl 7.8 6.5 - 8.5 g/dL [facility] Albumin 4.4 3.5 - 5.0 g/dL [facility] Alk phos 49 40 - 130 Units/L [facility] ALT 17 7 - 45 Units/L [facility] AST 22 10 - 45 Units/L [facility] Blood 12/05/2023 9:59 AM CDT 12/05/2023 10:00 AM CDT Daryl Glasgow ROOF FIXER LAB BLOOD ORDERABLES Valencia valadez Result [facility] Department [place] [address] documented in this encounter Visit Diagnoses Diagnosis Malignant melanoma of unknown origin (HCC) documented in this encounter Care Teams Fleet Administrative Assistant Relationship Specialty Start Date End Date Becky Conroy NP [address] [place] [address] PCP - General Nurse Practitioner 07/06/23 Jose Chairez MD PhD [address] [facility] [address] [place], [place] [id number] Medical Oncologist/Salt Operator Medical Oncology 08/14/23 Evelin Lofton MD [address] [place] [address] Referring Physician Cardiovascular Disease 08/14/23 documented as of this encounter
--- OUTSIDE RECORDS SUMMARY | 2024-09-17 04:22 | XMS_ITS | Encounter Summary ---
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 Gender Identity Not on file Sexual Orientation Not on file documented as of this encounter Miscellaneous Notes * Telephone Encounter - Buster Smiley RN - 11/07/2023 9:34 AM CST Preprocedure Phone Call Procedure Time Verified: Yes Arrival Time Verified: Yes Procedure Location Verified: Yes Medical History Reviewed: Yes NPO Status Reinforced: Yes Ride and Caregiver Arranged: Yes Patient Knows to Bring Current Medications: No Patient Knows to Bring CPAP: No Is Patient on Home Ventilator?: No Is Patient on Blood Thinners?: Yes (plavix) [employer] FRAME OPERATOR documented in this encounter Plan of Treatment Not on file documented as of this encounter Visit Diagnoses Not on filedocumented in this encounter Care Teams Alliance Consultant Relationship Specialty Start Date End Date Becky Conroy NP [address] [place] [address] PCP - General Nurse Practitioner 07/06/23 Jose Chairez MD PhD [address] [facility] [address] [place], [place] [id number] Medical Oncologist/Job Specification Writer Medical Oncology 08/14/23 Evelin Lofton MD [address] [place] [address] Referring Physician Cardiovascular Disease 08/14/23 documented as of this encounter
--- OUTSIDE RECORDS SUMMARY | 2024-09-17 04:22 | XMS_ITS | Encounter Summary ---
Author Organization [facility] Address [address] [place] [address] Phone Care Team Providers Care Electrician Wiring Name Role Phone Becky Conroy NP Primary Care Provider [phone] Jose Chairez MD PhD Unavailable [phone]- [phone] Evelin Lofton MD Unavailable [phone] Reason for Visit * Reason Comments Immunotherapy * Episode Based Medications (Routine) - Closed Specialty Diagnoses / Procedures Referred By Contac t Referred To Contact Oncology Diagnoses Malignant melanoma of unknown origin (HCC) Jose Chairez MD PhD [address] [facility] [address] [place] [address] Phone: tel: fax: [facility] Cancer [facility] [address] [place] [address] Phone: tel: fax: Referral ID Status Reason Start Date Expiration Date Visits Re quested Visits Authorized [id number] Closed 05/27/2024 09/04/2024 1 30 Encounter Details Date Type Department Care Team (Late st Contact Info) Description 11/14/2023 10:30 AM MAGNETIC PROSPECTING OPERATOR Infusion [facility] Oncology [address] [place] [phone] Malignant melanoma of unknown origin (HCC) [...] Never 11/10/2023 Personal Safety Answer Date Recorded Getting School Help Needed Denies 10/11 Comments No Sex and Gender Information Value Date Recorded Sex Assigned at Not on file Legal Sex Female 1:54 AM MAGNETIC PROSPECTING OPERATOR Gender Identity Not on file Sexual Orientation Not on file documented as of this encounter Nursing Notes * Barbara Grigsby N - 11/14/2023 10:30 AM CST Oncology Nursing Note [facility] ONCOLOGY Magui Baker is a 78 y.o. female who presents for treatment cycle 5 of [facility] Pre-treatment Nursing Assessment Nursing Assessment LOC: Alert Fatigue: Occassional Any falls since your last visit?: No Orientation: Oriented x4 Behavior: Calm Speech: Clear Language: No aphasia Vision: At baseline Peripheral Neuropathy: No Oral Mucosa Grade: Normal (0) Pt states has potential to be ?: N/A Shortness of Breath?: No Appetite: Fair Have You Recently Lost Weight Without Trying?: No Have you been eating poorly because of a decreased appetite?: No Malnutrition Screening Tool (MST) Score: 0 Nausea/Vomiting: No Diarrhea: No Constipation: No Skin Condition/Temp: Warm, Dry Swelling: No BP: 159/76 Temp: 36.5 ??C (97.7 ??F) Temp src: Oral Pulse: 68 Resp: 17 SpO2: 97 % Weight: 66.8 kg (147 lb 3.2 oz) Lab Results Component Value Date WBC 9.3 11/14/2023 HGB 12.4 11/14/2023 HCT 36.8 11/14/2023 MCV 87.4 11/14/2023 LABPLAT 296 11/14/2023 Chemistry Lab Results Component Value Date SODIUM 144 11/14/2023 POTASSIUM 3.2 (L) 11/14/2023 CHLORIDE 107 11/14/2023 CO2 28 11/14/2023 ANIONGAP 9 11/14/2023 BUNSER 15 11/14/2023 CREATININE 0.63 11/14/2023 GLUCOSE 121 11/14/2023 CALCIUM 9.8 11/14/2023 BILITOT 0.3 11/14/2023 ALBUMIN 4.0 11/14/2023 GFRNAA 90 11/14/2023 ALKPHOS 45 11/14/2023 AST 18 11/14/2023 ALT 16 11/14/2023 Treatment Patient: met treatment parameters Pre blood [...] Ambulatory Accompanied by: Self Discharged To: Home ETIC PROSPECTING OPERATOR documented in this encounter Plan of [...] mL/hr, Administer over 30 Minutes, Once, On Mon11/14/23 at 1100, For 1 dose, Use 0.2-5 micron filter, low-sorbing, low protein binding.Indications:Malignan t melanoma of unknown origin (HCC) New Bag 11/14/2023 10:58 AM MAGNETIC PROSPECTING OPERATOR 200 mg 216 mL/hr documented in this encounter Orders Medications Ordered That Stalin ht Not Have Been Administered Count Last Ordered Date First Ordered Date pembrolizumab (KEYTRUDA) 200 mg in sodium chloride 0.9% 100 mL IVPB 1 11/14/2023 Nursing Count Last Ordered Date First Orde red Date ONCBCN TREATMENT PARAMETERS 3 1 11/14/2023 Appointment Requests Count Last Ordered Date Fi rst Ordered Date ONCBCN RETURN CHEMO 1.5HRS 1 11/14/2023 documented in this encounter Care Teams Electrician Wiring Relationship Specialty Start Date End Date Becky Conroy, LEGAL SECRETARY [address] [place] [address] PCP - General Nurse Practitioner 07/06/23 Jose Chairez MD PhD [address] [facility] [address] [place], [place] [id number] Medical Oncologist/Granite Installer Medical Oncology 08/14/23 Evelin Lofton MD [address] [place] [address] Referring Physician Cardiovascular Disease 08/14/23 documented as of this encounter
--- OUTSIDE RECORDS SUMMARY | 2024-09-17 04:22 | XMS_ITS | Encounter Summary ---
Author Organization [facility] Address [address] [place] [address] Phone Care Team Providers Care Harp Action Assembler Name Role Phone Becky Conroy NP Primary Care Provider [phone] Jose Chairez MD PhD Unavailable [phone] Evelin Lofton MD Unavailable [phone] Encounter Details Date Type Department Care Team (Late st Contact Info) Description 11/02/2023 Telephone [facility] Surgery [facility] Advanced Medicine 5th [place] [address] [place] [address] Charo Tang CMA Social History Tobacco Use Types Packs/Day Years [...] on file Legal 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 MACHINE OPERATOR documented in this encounter Plan of Treatment Not on file documented as of this encounter Visit Diagnoses Not on filedocumented in this encounter Care Teams Harp Action Assembler Relationship Specialty Start Date End Date Becky Conroy NP [address] [place] [address] PCP - General Nurse Practitioner 07/06/23 Jose Chairez MD PhD [address] [facility] [address] [place], [place] [id number] Medical Oncologist/Windshield Installer Medical Oncology 08/14/23 Evelin Lofton MD [address] [place] [address] Referring Physician Cardiovascular Disease 08/14/23 documented as of this encounter
--- OUTSIDE RECORDS SUMMARY | 2024-09-17 04:22 | XMS_ITS | Encounter Summary ---
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 POWER EQUIPMENT 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 Gender Identity Not on file Sexual Orientation Not on file documented as of this encounter Miscellaneous Notes * Telephone Encounter - Anna Hummel RN - 11/20/2023 9:57 AM CDT No answer documented in this encounter Plan of Treatment Not on file documented as of this encounter Visit Diagnoses Not on filedocumented in this encounter Care Teams Rack Room Worker Relationship Specialty Start Date End Date Becky Conroy LOGISTICS PROGRAM MANAGER [address] [place] [address] PCP - General Nurse Practitioner 07/06/23 Jose Chairez MD PhD [address] [facility] [address] [place], [place] [id number] Medical Oncologist/Analysis Lead Medical Oncology 08/14/23 Evelin Lofton MD [address] [place] [address] Referring Physician Cardiovascular Disease 08/14/23 documented as of this encounter
--- OUTSIDE RECORDS SUMMARY | 2024-09-17 04:22 | XMS_ITS | Encounter Summary ---
Author Organization [facility] Address [address] [place] [address] Phone Care Team Providers Care Experimental Rocketsled Mechanic Name Role Phone Becky Conroy NP Primary Care Provider [phone] Jose Chairez MD PhD Unavailable [phone] Evelin Lofton MD Unavailable [phone] Reason for Visit * Reason Comments Chemotherapy * Episode Based Medications (Routine) - Closed Specialty Diagnoses / Procedures Referred By Contac t Referred To Contact Oncology Diagnoses Malignant melanoma of unknown origin (HCC) Jose Chairez MD PhD [address] [facility] [address] [place] [address] Phone: tel: fax: [facility] Cancer [facility] [address] [place] [phone] Phone: tel: fax: Referral ID Status Reason Start Date Expiration Date Visits Re quested Visits Authorized [id number] Closed 05/27/2024 09/04/2024 1 30 Encounter Details Date Type Department Care Team (Late st Contact Info) Description 10/24/2023 9:45 AM PATIENT FINANCIAL COUNSELOR Infusion [facility] Oncology [address] [place] [phone] Malignant melanoma of unknown origin (HCC) [...] on file Legal Sex Female 1:54 AM PATIENT FINANCIAL COUNSELOR Gender Identity Not on file Sexual Orientation Not on file documented as of this encounter Nursing Notes * Caron Bui - 10/24/2023 9:45 AM CST Oncology Nursing Note [facility] ONCOLOGY Magui Baker is a 78 y.o. female who presents for treatment cycle 4, day 1 of Keytruda. Pre-treatment Nursing Assessment Nursing Assessment LOC: Alert Fatigue: Constant Any falls since your last visit?: No Orientation: Oriented x4 Behavior: Calm Speech: Clear Peripheral Neuropathy: No Oral Mucosa Grade: Painful erythema, or ulcers preventing swallowing (III) Pt states has potential to be ?: N/A Shortness of Breath?: No Appetite: Fair What diet do you follow at home?: reg Nausea/Vomiting: No Diarrhea: No Constipation: No Last BM Date: 10/24/23 Skin Condition/Temp: Warm, Dry BP: 151/74 Temp: 36.8 ??C (98.2 ??F) Temp src: Oral Pulse: 78 Resp: 16 SpO2: 94 % Weight: 66 kg (145 lb 9.6 oz) Pain Score: 0 - No pain [...] Ambulatory Accompanied by: Self Discharged To: Home ENT FINANCIAL COUNSELOR documented in this encounter Plan of Treatment [...] mL/hr, Administer over 30 Minutes, Once, On Mon10/24/23 at 1015, For 1 dose, Use 0.2-5 micron filter, low-sorbing, low protein binding.Indications:Malignan t melanoma of unknown origin (HCC) New Bag 10/24/2023 10:13 AM PATIENT FINANCIAL COUNSELOR 200 mg 216 mL/hr documented in this encounter Orders Medications Ordered That Stalin ht Not Have Been Administered Count Last Ordered Date First Ordered Date pembrolizumab (KEYTRUDA) 200 mg in sodium chloride 0.9% 100 mL IVPB 1 10/24/2023 Nursing Count Last Ordered Date First Orde red Date ONCBCN TREATMENT PARAMETERS 3 1 10/24/2023 Appointment Requests Count Last Ordered Date Fi rst Ordered Date ONCBCN RETURN CHEMO 1.5HRS 1 10/24/2023 documented in this encounter Care Teams Experimental Rocketsled Mechanic Relationship Specialty Start Date End Date Becky Conroy FLOWER GRADER [address] [place] [address] PCP - General Nurse Practitioner 07/06/23 Jose Chairez MD PhD [address] [facility] [address] [place] [address] Medical Oncologist/Wallcovering Texturer Medical Oncology 08/14/23 Evelin Lofton MD [address] [place] [address] Referring Physician Cardiovascular Disease 08/14/23 documented as of this encounter
--- OUTSIDE RECORDS SUMMARY | 2024-09-17 04:22 | XMS_ITS | Encounter Summary ---
Author Organization [facility] Address [address] [place] [address] Phone Care Team Providers Care Electric Powerline Examiner Name Role Phone Becky Conroy NP Primary Care Provider [phone] Jose Chairez MD PhD Unavailable [phone] Evelin Lofton MD Unavailable [phone] Reason for Visit * Reason Comments Follow-up Encounter Details Date Type Department Care Team (Late st Contact Info) Description 10/30/2023 2:30 PM BURLESQUE DANCER Office Visit [facility] Surgery [address] [facility] Advanced Medicine 5th [place] [address] [place] [address] Armando Akhtar NP [address] [facility] [address] [place] [address] Metastatic melanoma (HCC) (Primary Dx) Social History Tobacco [...] on file Legal Sex Female 1:54 AM BURLESQUE DANCER Gender Identity Not on file Sexual Orientation Not on file documented as of this encounter Last Filed Vital Signs Vital Sign Reading Time Taken Comments Blood Pressure - - Pulse - - Temperature - - Respiratory Rate - - Oxygen Saturation - - Inhaled Oxygen Concentration - - Weight 66 kg (145 lb 8.1 oz) 10/30/2023 2:11 PM BURLESQUE DANCER Height 157.5 cm (5' 2 ) 10/30/2023 2:11 PM BURLESQUE DANCER Body Mass Index 26.61 10/30/2023 2:11 PM BURLESQUE DANCER documented in this encounter Progress Notes * Armando Akhtar NP - 10/30/2023 2:30 PM CST MELANOMA POST-OPERATIVE VISIT DATE OF VISIT: 10/30/2023 REASON FOR VISIT: Post-operative visit after left axilla lymph node dissection on October 11, 2023 for metastatic melanoma of unknown primary source. Final pathology of the surgical specimen demonstrated no viable tumor. HISTORY OF PRESENT ILLNESS: Since surgery, Ms. Bakre has been doing well with no specific complaints. She reports no wound erythema, induration, or drainage. No fevers or chills. Surgical incision healing well with no evidence of infection. SHEILA drain site clean dry and intact with no evidence of infection. Patient presented with her drain record reflecting an excess of 200cc of serous fluid over the past 2-3 days. I have explained to the patient that at this time with the drain output being so much we can not take the drain out today. We discussed the fact that next week will make 4 weeks for the drain being in place and she will need to see interventional Radiology for drain sclerosis and/or replacement. The patient has verbalized understanding and someone from the office will reach out to her when this appointment has been scheduled. I have also advised her we willsee her in 2-3 weeks for reassessment of drain removal. I advised her to notify the office if her drain output is less than 30 cc for 2 or more consecutive days prior to her next appointment. I have reviewed signs and symptoms of infection and also informed her to notify us if the drain output suddenly changes colors or becomes bloody. PHYSICAL EXAMINATION: VITAL SIGNS: Weight - 66 kg (145 lb 8.1 oz) pounds, Blood pressure - , Heart rate - bpm, Temperature - ??F. GENERAL: Alert and oriented x 3 in no apparent distress. SKIN: The surgical site is healing well with no signs of infection. Surgical drain in place with 100cc fluid in the bulb. ASSESSMENT: Healing well after left axillary lymph node dissection for a metastatic melanoma of unknown origin. PLAN: I reviewed Ms. Baker's pathology report and provided her with a copy. We also discussed the fact that she is at risk not only for recurrence of melanoma, but also is at risk for developing asecondary melanoma during their lifetime. As such, I recommend life-long follow-up. 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 We will alternate visits every 3 months for two years and then space out thevisits to every 6 months after that. I also recommended continued self-examination, and reviewed the A-B-C-D's of malignant skin lesions and reviewed lymph node basin surveillance. We also discussed the recommended use of a broad-spectrum (UV-A/UV-B) sunblock with at least an SPF of 30 during any significant sun exposure and I reviewed the literature to support this recommendation. I also provided Ms. Baker with literature and several websites for further information about melanoma follow-up. I answered all of her questions to her satisfaction. Armando Akhtar NP CC: Patient Care Team: Becky Conroy NP as PCP - General (Nurse Practitioner) Jose Chairez MD PhD as Medical Oncologist/Chief Pilot (Medical Oncology) Evelin Lofton MD as Referring Physician (Cardiovascular Disease) Utility Assembler completed by [employer]. Utility Assembler variances may occur. Cosigned by Landon Davis MD at 11/01/2023 2:08 PM BURLESQUE DANCER ESQUE DANCER ESQUE DANCER documented in this encounter Plan of Treatment Not on file documented as of this encounter Visit Diagnoses Diagnosis Metastatic melanoma (HCC)- Primary Melanoma of skin, site unspecified documented in this encounter Discontinued Medications Medication Sig Discontinue Reason Start Date End Da te polyethylene glycol (MIRALAX) 17 gram/dose bulk powderIndications:consti pation Take 17 g by mouth daily for 14 days 10/12/2023 10/30/2023 senna-docusate (PERICOLACE) 8.6-50 mg Take 1 tablet by mouth daily for 14 days 10/12/2023 10/30/2023 documented as of this encounter Care Teams Electric Powerline Examiner Relationship Specialty Start Date End Date Becky Conroy NP [address] [place] [address] PCP - General Nurse Practitioner 07/06/23 Jose Chairez MD PhD [address] [facility] [address] [place] [address] Medical Oncologist/Chief Pilot Medical Oncology 08/14/23 Evelin Lofton MD [address] [place] [address] Referring Physician Cardiovascular Disease 08/14/23 documented as of this encounter
--- OUTSIDE RECORDS SUMMARY | 2024-09-17 04:22 | XMS_ITS | Encounter Summary ---
Author Organization [facility] Address [address] [place] [address] Phone Care Team Providers Care Admitted Attorneys Name Role Phone Becky Conroy NP Primary Care Provider [phone] Jose Chairez MD PhD Unavailable [phone] Evelin Lofton MD Unavailable [phone] Reason for Referral * MRI/CAT/PET Scan (Routine) - Closed Specialty Diagnoses / Procedures Referred By Korey harkins Referred To Contact Radiology Diagnoses Malignant melanoma of unknown origin (HCC) Procedures PET/CT FDG Skull to Thigh Jose Chairez MD PhD [address] [address] Phone: tel: fax: [facility] Referral ID Status Reason Start Date Expiration Date Visits Re quested Visits Authorized [id number] Closed 10/24/2023 11/22/2024 2 1 TESTER Reason for Visit * Episode Based Medications (Routine) - Closed Specialty Diagnoses / Procedures Referred By Korey harkins Referred To Contact Oncology Diagnoses Malignant melanoma of unknown origin (HCC) Jose Chairez MD PhD [address] [address] Phone: tel: fax: [place] [phone] Phone: tel: fax: Referral ID Status Reason Start Date Expiration Date Visits Re quested Visits Authorized [id number] Closed 05/27/2024 09/04/2024 1 30 Encounter Details Date Type Department Care Team (Late st Contact Info) Description 10/24/2023 9:00 AM BI TESTER Office Visit [facility] Oncology [address] [place] [address] Jose Chairez MD PhD [address] [place] [address] Malignant melanoma of unknown origin [...] on file Legal Sex Female 1:54 AM BI TESTER Gender Identity Not on file Sexual Orientation Not on file documented as of this encounter Last Filed Vital Signs Vital Sign Reading Time Taken Comments Blood Pressure 151/74 10/24/2023 8:33 AM BI TESTER Pulse 78 10/24/2023 8:33 AM BI TESTER Temperature 36.8 ??C (98.2 ??F) 10/24/2023 8:33 AM CS T Respiratory Rate 16 10/24/2023 8:33 AM BI TESTER Oxygen Saturation 94% 10/24/2023 8:33 AM BI TESTER Inhaled Oxygen Concentration - - Weight 66 kg (145 lb 9.6 oz) 10/24/2023 8:33 AM BI TESTER Height - - Body Mass Index 26.63 09/13/2023 9:35 AM BI TESTER documented in this encounter Progress Notes * Jose Chairez MD PhD - 10/24/2023 9:00 AM CST Oncology Progress Note Cancer Staging [...] Day Cycles Current day: Day 1, Cycle 4 (Started on 10/24/2023; Originally planned for 10/24/2023) Following planned day: Day 1, Cycle 5 (Planned for 11/14/2023) Subjective Interval History Maguichicho Baker presents for ongoing management of melanoma. Recovering from surgery with ongoing fatigue. Drain in place and continues with small amount serosanguinous drainage. Being careful with use of L arm. No new or concerning lesions or masses. Presents with daughter. No Known Allergies Outpatient Encounter Medications as of 10/24/2023: acetaminophen 500 mg capsule, Take 2 capsules (1,000 mg total) by mouth every 6 (six) hours for 14 days, Disp: 30 tablet, Rfl: 0 clopidogreL (PLAVIX) 75 mg tablet, Take 1 [...] by mouth as needed, Disp: , Rfl: gabapentin (NEURONTIN) 100 mg [...] Apply topically as needed, Disp: , Rfl: omega-3 fatty acids 500 mg capsule, Take 1 tablet by mouth every morning, Disp: , Rfl: ondansetron ODT (ZOFRAN-ODT) 4 mg disintegrating tablet, Take 1 tablet (4 mg total) by mouth every 4 (four) hours as needed for nausea or vomiting for up to 14 days, Disp: 20 tablet, Rfl: 0 polyethylene glycol (MIRALAX) 17 gram/dose bulk powder, Take 17 g by mouth daily for 14 days, Disp:238 g, Rfl: 0 potassium chloride ER 10 mEq CR tablet, [...] every morning 0.5 tablet, Disp: , Rfl: senna-docusate (PERICOLACE) 8.6-50 mg, Take 1 tablet by mouth daily for 14 days, Disp: 14 tablet, Rfl: 0 triamcinolone (KENALOG) 0.1 % cream, Apply topically 2 (two) times a day (Patient taking differently: Apply topically as needed for irritation), Disp: 80 g, Rfl: 3 zinc gluconate 50 mg tablet, Take 1 tablet (50 mg total) by mouth every morning, Disp: , Rfl: [DISCONTINUED] cyclobenzaprine (FLEXERIL) 5 mg tablet, Take 1 tablet (5 mg total) by mouth 3 (three) times a day as needed for muscle spasms for up to 14 days, Disp: 30 tablet, Rfl: 0 No facility-administered encounter medications on file as of 10/24/2023. Review of Systems: Review of systems per HPI and otherwise all other systems are negative Performance Status: ECOG 0 Objective Vitals: Most Recent : BP: 151/74 Temp: 36.8 ??C (98.2 ??F) Temp src: Oral Pulse: 78 Resp: 16 SpO2: 94 % Weight: 66 kg (145 lb 9.6 oz) Physical Exam: General Appearance: Well-appearing, in no apparent distress. ECO HEENT: Normocephalic, atraumatic. Pupils equal, round and reactive to light. Sclera anicteric. Oropharynx clear. Extremities: No edema, clubbing or cyanosis. LNs: L axillary scar - well healed, no redness, drain in place. 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 Neuro: Non-focal. Lab/Radiology/Diagnostic Review: Recent Results (from the past 72 hour(s)) Thyroid Function Dyer Collection Time: 10/24/23 8:17 AM Result Value Ref Range TSH <0.01 (L) 0.30 - 4.20 mcIUnit/mL Lactate dehydrogenase (LD) Collection Time: 10/24/23 8:17 AM Result Value Ref Range Lactate dehydrogenase (LDH) 179 100 - 250 Units/L CBC with auto differential Collection Time: 10/24/23 8:17 AM Result Value Ref Range WBC 8.8 3.8 - 9.9 K/cumm Hgb 13.1 11.9 - 15.5 g/dL Hct 39.2 35.6 - 45.5 % Plt 237 150 - 400 K/cumm MPV 9.5 9.1 - 12.3 fL RBC 4.47 3.90 - 5.20 M/cumm MCV 87.7 81.3 - 96.4 fL MCH 29.3 27.1 - 33.3 pg MCHC 33.4 32.3 - 35.7 g/dL RDW CV 13.0 11.1 - 14.9 % RDW SD 41.9 35.7 - 48.1 fL NRBC abs 0.00 0.00 - 0.01 K/cumm Comprehensive metabolic panel Collection Time: 10/24/23 8:17 AM Result Value Ref Range Sodium 143 135 - 145 mmol/L Potassium, pl 3.3 3.3 - 4.9 mmol/L Chloride 105 97 - 110 mmol/L CO2 28 22 - 32 mmol/L Anion gap 10 2 - 15 mmol/L BUN 17 6 - 25 mg/dL Creatinine 0.68 0.60 - 1.10 mg/dL Glucose 113 70 - 199 mg/dL Calcium 10.0 8.5 - 10.3 mg/dL Bilirubin, total 0.4 0.1 - 1.2 mg/dL Protein, pl 7.2 6.5 - 8.5 g/dL Albumin 4.1 3.5 - 5.0 g/dL Alk phos 46 40 - 130 Units/L ALT 19 7 - 45 Units/L AST 19 10 - 45 Units/L Differential, auto Collection Time: 10/24/23 8:17 AM Result Value Ref Range Neutrophil abs 5.4 1.5 - 6.5 K/cumm Imm gran abs 0.0 0.0 - 0.1 K/cumm Lymphocyte abs 2.4 0.8 - 3.3 K/cumm Monocyte abs 0.7 0.2 - 0.8 K/cumm Eosinophil abs 0.2 0.0 - 0.5 K/cumm Basophil abs 0.1 0.0 - 0.1 K/cumm Neutrophil pct 61.2 % Imm gran pct 0.2 % Lymphocyte pct 27.4 % Monocyte pct 7.8 % Eosinophil pct 2.7 % Basophil pct 0.7 % eGFR Collection Time: 10/24/23 8:17 AM Result Value Ref Range eGFR 88 >=60 mL/min/1.73 m2 T4, free Collection Time: 10/24/23 8:17 AM Result Value Ref Range Free T4 1.93 (H) 0.90 - 1.70 ng/dL Radiology: None today Assessment/Plan Magui Baker is [...] to hypothyroid? Not tachy, no sweating/diarrhea. Monitor. ROV 3 weeks. Restaging PET 3 months from prior. All questions answered. Reiterated that I remain available for additional questions that may arise going forward. TESTER documented in this encounter Plan of Treatment [...] FDG-PET/CT IMAGING DATE OF STUDY: ??12/25/2023 SCANNER: [facility] RADIOPHARMACEUTICAL: 17.07 mCi F-18 Fluorodeoxyglucose (FDG) i.v. [...] obtained. ??The study was interpreted on the [employer] management workstation. ??The mean liver SUV (reported for quality improvement coordinator (rn) purposes) is 2.5. ?? The total scanned [...] FDG-PET/CT IMAGING DATE OF STUDY: 12/25/2023 SCANNER: [facility] RADIOPHARMACEUTICAL: 17.07 mCi F-18 Fluorodeoxyglucose (FDG) i.v. [...] obtained. The study was interpreted on the [employer] management workstation. The mean liver SUV (reported for quality improvement coordinator (rn) purposes) is 2.5. The total scanned area [...] IMG PET PROCEDURES F inal Result * (ABNORMAL) Comprehensive metabolic panel (11/14/2023 9:31 AM BI TESTER) Sodium 144 135 - 145 mmol/L [facility] Comment:Testing performed by : [facility], [address] [place] [address] Potassium, pl 3.2(L) 3.3 - 4.9 mmol/L [facility] Chloride 107 97 - 110 mmol/L [facility] CO2 28 22 - 32 mmol/L [facility] Anion gap 9 2 - 15 mmol/L [facility] BUN 15 6 - 25 mg/dL [facility] Creatinine 0.63 0.60 - 1.10 mg/dL [facility] Glucose 121 70 - 199 mg/dL [facility] Comment: Interpretive Data Fasting glucose [...] interpretive data was last revised 2022. Calcium 9.8 8.5 - 10.3 mg/dL [facility] Bilirubin, total 0.3 0.1 - 1.2 mg/dL [facility] Protein, pl 7.0 6.5 - 8.5 g/dL [facility] Albumin 4.0 3.5 - 5.0 g/dL [facility] Alk phos 45 40 - 130 Units/L [facility] ALT 16 7 - 45 Units/L [facility] AST 18 10 - 45 Units/L [facility] Blood 11/14/2023 9:31 AM BI TESTER 11/14/2023 9:32 AM BI TESTER us Jose Chairez MD PhD LAB BLOOD ORDERABLES Final Result Performing Organization Address City/[facility] Co de Phone Number [facility] [place] [address] * CBC with auto differential (11/14/2023 9:31 AM BI TESTER) [facility] WBC 9.3 3.8 - 9.9 K/cumm [facility] Comment:Testing performed by : [address] [address] Hgb 12.4 11.9 - 15.5 g/dL [facility] Comment:Testing performed by : [address] [address] Hct 36.8 35.6 - 45.5 % [facility] Comment:Testing performed by : [address] [address] Plt 296 150 - 400 K/cumm [facility] Comment:Testing performed by : [address] [address] MPV 9.2 9.1 - 12.3 fL [facility] RBC 4.21 3.90 - 5.20 M/cumm [facility] MCV 87.4 81.3 - 96.4 fL [facility] MCH 29.5 27.1 - 33.3 pg [facility] MCHC 33.7 32.3 - 35.7 g/dL [facility] RDW CV 12.9 11.1 - 14.9 % [facility] RDW SD 41.2 35.7 - 48.1 fL [facility] NRBC abs 0.00 0.00 - 0.01 K/cumm [facility] Blood 11/14/2023 9:31 AM BI TESTER 11/14/2023 9:32 AM BI TESTER Jose Chairez MD PhD LAB BLOOD ORDERABLES Final Result Performing Organization Address City/[facility]/[place]IP [place] [address] * Lactate dehydrogenase (LD) (11/14/2023 9:31 AM BI TESTER) Lactate dehydrogenase (LDH) 187 100 - 250 Units/L [facility] Comment:Testing performed by : [facility], [address] [place] [address] Blood 11/14/2023 9:31 AM BI TESTER 11/14/2023 9:32 AM BI TESTER us Jose Chairez MD PhD LAB BLOOD ORDERABLES Final Result Performing Organization Address [facility] [place] [address] * (ABNORMAL) Thyroid Function [place]yer (11/14/2023 9:31 AM BI TESTER) Pathologist [facility] TSH 0.01(L) 0.30 - 4.20 mcIUnit/mL [facility] Blood 11/14/2023 9:31 AM BI TESTER 11/14/2023 10:58 AM BI TESTER us Jose Chairez MD PhD LAB BLOOD ORDERABLES Final Result Performing Organization Address City/[facility] [place] [address] documented in this encounter Visit Diagnoses Diagnosis Malignant melanoma of unknown origin (HCC)- Primary Malignant melanoma of unknown origin (HCC) documented in this encounter Orders Appointment Requests Count Last Ordered Date Fi rst Ordered Date ONCBCN CLINIC APPOINTMENT REQUEST 2 024 10/24/2023 ONCBCN LAB APPOINTMENT 1 11/14/2023 ONCBCN RETURN CHEMO 1.5HRS 1 11/14/2023 documented in this encounter Care Teams Admitted Attorneys Relationship Specialty Start Date End Date Becky Conroy NP [address] [place] [address] PCP - General Nurse Practitioner 07/06/23 Jose Chairez MD PhD [address] [facility] [address] [place] [address] Medical Oncologist/Storage Battery Charger Medical Oncology 08/14/23 Evelin Lofton MD [address] [place] [address] Referring Physician Cardiovascular Disease 08/14/23 documented as of this encounter
--- OUTSIDE RECORDS SUMMARY | 2024-09-17 04:22 | XMS_ITS | Encounter Summary ---
Author Organization [facility] Healthcare Address [address] [place] [address] Care Team Providers Care Feed Mixer Helper Name Role Phone Becky Conroy NP Primary Care Provider [phone] Jose Chairez MD PhD Unavailable [phone] Evelin Lofton MD Unavailable [phone] Reason for Visit * Diagnostic Imaging (Routine) - Closed Specialty Diagnoses / Procedures Referred By Korey harkins Referred To Contact Radiology Diagnoses Metastatic malignant melanoma (HCC) Procedures IR Inject Abscess Catheter IR Non Vascular Sclerosis Kendrcik Estrella PA [address] [facility] [address] [place] [address] Phone: tel: fax: [address] [address] Referral ID Status Reason Start Date Expiration Date Visits Re quested Visits Authorized [id number] Closed 11/23/2023 12/22/2024 1 1 Encounter Details Date Type Department Care Team (Late st Contact Info) Description 11/29/2023 8:07 AM CDT - 11/29/2023 11:59 PM CDT Hospital Encounter [facility] Radiology [address] [place], [place] [id number] Greg Babcock MD [address] [facility] [address] [place] [address] Metastatic malignant melanoma (HCC) Discharge Disposition: Discharge to home or [...] on file Legal Sex Female 1:54 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 Gender Identity Not on file Sexual Orientation Not on file documented as of this encounter Last Filed Vital Signs Vital Sign Reading Time Taken Comments Blood Pressure 136/69 11/29/2023 8:23 AM CDT Pulse 70 11/29/2023 8:23 AM CDT Temperature 36.5 ??C (97.7 ??F) 11/29/2023 8:23 AM CD T Respiratory Rate 16 11/29/2023 8:23 AM CDT Oxygen Saturation 97% 11/29/2023 8:23 AM CDT Inhaled Oxygen Concentration - - Weight 70.3 kg (155 lb) 11/29/2023 8:23 AM CDT Height 165.1 cm (5' 5 ) 11/29/2023 8:23 AM CDT Body Mass Index 25.79 11/29/2023 8:23 AM CDT documented in this encounter Discharge Instructions * Discharge Instructions* Jt Torre MD - 11/29/2023 9:53 AM CDT Interventional Radiology Outpatient Discharge Instructions/Note Diagnosis:Left axillary fluid collection Procedure:Left axillary drain removal Limitations: [] No lifting greater than 5 pounds with [] Right [] Left arm for 7 days. [] You received medication that may affect your judgement. Stay with a responsible person today. Do not drive, operate machinery, make any legal or important decisions, or drink alcohol until tomorrow. No smoking unless another adult is present. Other Diet: You may resume your previous diet. Medication: [x] Usual medications; check with your regular doctor for any questions. Do not take any new pain medicine, sleeping pills or sedatives unless approved by your doctor. [] Prescriptions given for: Procedure Site Care: [] teaching sheet given [] Skin glue was used to close your incision. See teaching sheet. [] Keep site clean and dry. [x] You may bathe or shower tomorrow. [x] Change the dressing daily and if it becomes wet or dirty. [] Cover entire area with plastic and tape down edges before showering to keep site clean and dry. [] The suture at your dialysis access site may be removed by the dialysis staff on ___/___/___ (date). Drainage Tube Care: [] Flush tube with [] 5ml Normal Saline [] 10 ml Normal Saline [] Other: [] Flush tube [] once a day [] Other: [] Record drainage output every day. [] Your tube is capped. Uncap the tube after or if severe pain or fever develops. (Please see teaching sheet). [] Call Interventional Radiology if there is leakage around the tube or the tube stops draining. To contact an Interventional Radiologist at [facility] call [phone] Monday through Monday from 7:30am-4:30pm. At all other times call [phone] and ask that the Interventional Radiologist be paged. To contact an Interventional Radiologist at [facility] call [phone] Monday through Monday from 7:30am-3:30pm. Special instructions: Please call Interventional Radiology for any procedure related questions or problems including: Extreme swelling or bruising at the site. Unusual drainage or bleeding from procedure site. Fever of 101.5 F for more than 24 hours. Severe procedure related pain. Follow up care: [] Return to Interventional Radiology on at Please come to: [] 3rd Floor [facility] [] 4th floor [facility] [] [facility] [] [facility] Please call [phone] to schedule a follow up appointment. You need to return in documented in this encounter Medications at Time of Discharge [...] or self care documented in this encounter Miscellaneous Notes * Post-Procedure Note - Jt Torre MD - 11/29/2023 9:00 AM CDT Radiology Brief Post Procedure Note Attending: Dr. Babcock Assistant Professor Of Biochemistry: Dr. Torre Sedation/Anesthesia: None Pre-Op/Pre-Procedure Diagnosis: Left axillary fluid collection Post-Op/Post-Procedure Diagnosis: resolved left axillary fluid collection Procedure Performed: Left axillary drain removal Procedure Findings: Patient has had minimal drainage from left axillary drain over past week. Ultrasound and sinogram showed resolved left axillary fluid collection. Left axillary drain was removed. Complications: None Estimated Blood Loss: None Specimens: None Condition: Stable Full report to follow. * Pre-Procedure Note - Tiffani Murray MD - 11/29/2023 9:00 AM CDT Images from the original note were not included. I have reviewed the above TIM/resident/fellows note and agree with the assessment and plan as written. The benefits, risks and alternatives of procedure have been discussed with the patient and/or their direct customer service representative. Patient or direct customer service representative was informed that the provider getting consent may not be the same provider performing procedure. All questions answered and agree to proceed. Blake Villalta MD paraffin machine operator and Surgery Interventional Radiology Section [facility] Indication: Left axillary lymph node dissection with high drain output. Last exchange and sclerosisperformed 11/23/23 Planned Procedure: Drain evaluation and possible exchange/sclerosis documented in this encounter Plan of Treatment Not on file documented as of this encounter Procedures Procedure Name Priority Date/Time Associated Diagnosis Comments ABSCESS CATHETER INJECTION Schedule Routine, Read Routine (OP Routine) 11/29/2023 9:49 AM CDT Metastatic malignant melanoma (HCC) documented in this encounter Results * IR Inject Abscess Catheter (11/29/2023 9:49 AM CDT) Anatomical Region Laterality Modality Body N/A X-Ray Angiograph y 11/29/2023 10:1 0 AM CDT Impressions 11/29/2023 5:08 PM CDT IMPRESSION: Resolved left axillary fluid collection. ??Left axillary drain was removed. ?? PLAN: Patient to follow-up with ordering provider. ?? If questions arise, please contact us by calling [phone]. Dictated by: Jt Torre MD The radiology attending physician has personally reviewed this study, and had reviewed and/or edited this written report and agrees with it. Electronically signed by: Greg Babcock MD Narrative 11/29/2023 5:08 PM CDT EXAMINATION: ??DRAINAGE CATHETER EVALUATION AND REMOVAL HISTORY: ??Left axillary lymph node dissection with high drain output s/p left drain sclerosis 11/23/23. Patient has had pain from the drain site with minimal output since sclerosis. ATTENDING PRESENCE: ??Greg Babcock MD, the attending radiologist, was present from the beginning to the end of the procedure. SEDATION: ??The patient did not require conscious sedation for the procedure. TECHNIQUE: Prior to beginning the procedure, [place] Protocol was used to confirm the patient's identity and planned procedure. Fluoroscopy time has been recorded in the electronic medical record. The left axilla was examined with ultrasound. ??Images were saved to the permanent medical record. After obtaining a siding stapler image, the catheter was injected with dilute contrast and multiple fluoroscopic images obtained. ?? The sutures on the catheter were cut and the catheter was removed without difficulty. A sterile dressing was applied to the skin site. ESTIMATED BLOOD LOSS: Minimal. CONDITION: Stable DISCHARGED TO: ??Recovery and then to Home. FINDINGS: Images from the ultrasound and fluoroscopic catheter check demonstrate a resolved left axillary fluid collection. Catheter was removed. ??Sterile dressing was applied. Procedure Note Greg Babcock MD - 11/29/2023 EXAMINATION: DRAINAGE CATHETER EVALUATION AND REMOVAL HISTORY: Left axillary lymph node dissection with high drain output s/p left drain sclerosis 11/23/23. Patient has had pain from the drain site with minimal output since sclerosis. ATTENDING PRESENCE: Greg Babcock MD, the attending radiologist, was present from the beginning to the end of the procedure. SEDATION: The patient did not require conscious sedation for the procedure. TECHNIQUE: Prior to beginning the procedure, [place] Protocol was used to confirm the patient's identity and planned procedure. Fluoroscopy time has been recorded in the electronic medical record. The left axilla was examined with ultrasound. Images were saved to the permanent medical record. After obtaining a siding stapler image, the catheter was injected with dilute contrast and multiple fluoroscopic images obtained. The sutures on the catheter were cut and the catheter was removed without difficulty. A sterile dressing was applied to the skin site. ESTIMATED BLOOD LOSS: Minimal. CONDITION: Stable DISCHARGED TO: Recovery and then to Home. FINDINGS: Images from the ultrasound and fluoroscopic catheter check demonstrate a resolved left axillary fluid collection. Catheter was removed. Sterile dressing was applied. IMPRESSION: IMPRESSION: Resolved left axillary fluid collection. Left axillary drain was removed. PLAN: Patient to follow-up with ordering provider. If questions arise, please contact us by calling [phone]. Dictated by: Jt Torre MD The radiology attending physician has personally reviewed this study, and had reviewed and/or edited this written report and agrees with it. Electronically signed by: Greg Babcock MD us [facility] IMG IR PROCEDURES Fin al Result documented in this encounter Visit Diagnoses Diagnosis Metastatic malignant melanoma (HCC) documented in this encounter Orders Discharge Count Last Ordered Date First Orde red Date DISCHARGE PATIENT 1 11/29/2023 documented in this encounter Care Teams Feed Mixer Helper Relationship Specialty Start Date End Date Becky Conroy NP [address] [place] [address] PCP - General Nurse Practitioner 07/06/23 Jose Chairez MD PhD [address] [facility] [address] [place], [place] [id number] Medical Oncologist/Admissions Rn Medical Oncology 08/14/23 Evelin Lofton MD [address] [place] [address] Referring Physician Cardiovascular Disease 08/14/23 documented as of this encounter
--- OUTSIDE RECORDS SUMMARY | 2024-09-17 04:22 | XMS_ITS | Encounter Summary ---
Author Organization [facility] Address [address] [place] [address] Phone Care Team Providers Care Dietetics Professor Name Role Phone Becky Conroy NP Primary Care Provider [phone] Jose Chairez MD PhD Unavailable [phone] Evelin Lofton MD Unavailable [phone] Reason for Visit * Episode Based Medications (Routine) - Closed Specialty Diagnoses / Procedures Referred By Contac t Referred To Contact Oncology Diagnoses Malignant melanoma of unknown origin (HCC) Jose Chairez MD PhD [address] [facility] [address] [place] [address] Phone: tel: fax: [facility] [address] [address] Phone: tel: fax: Referral ID Status Reason Start Date Expiration Date Visits Re quested Visits Authorized [id number] Closed 05/27/2024 09/04/2024 1 30 Encounter Details Date Type Department Care Team (Late st Contact Info) Description 11/14/2023 10:45 AM ICT EDUCATOR Office Visit [facility] Oncology [address] [place] [phone] Jose Chairez MD PhD [address] [facility] [address] [place] [address] Malignant melanoma of unknown origin [...] on file Legal Sex Female 1:54 AM ICT EDUCATOR Gender Identity Not on file Sexual Orientation Not on file documented as of this encounter Last Filed Vital Signs Vital Sign Reading Time Taken Comments Blood Pressure 159/76 11/14/2023 9:46 AM ICT EDUCATOR Pulse 68 11/14/2023 9:46 AM ICT EDUCATOR Temperature 36.5 ??C (97.7 ??F) 11/14/2023 9:46 AM CS T Respiratory Rate 17 11/14/2023 9:46 AM ICT EDUCATOR Oxygen Saturation 97% 11/14/2023 9:46 AM ICT EDUCATOR Inhaled Oxygen Concentration - - Weight 66.8 kg (147 lb 3.2 oz) 11/14/2023 9:46 A M ICT EDUCATOR Height - - Body Mass Index 26.92 10/30/2023 2:11 PM ICT EDUCATOR documented in this encounter Progress Notes * Daryl Glasgow NP - 11/14/2023 10:45 AM CST MEDICAL ONCOLOGY OUTPATIENT ROV NOTE Magui Baker : 1945 DATE OF VISIT: 11/14/23 Oncology History Overview Note Melanoma 07/03 - [...] of axilla (HCC) Active Treatment Plans for Leidymatthew Magui Sophia Oncology Chemotherapy Treatment: Pembrolizumab 21 Day Cycles Current day: Day 1, Cycle 5 (Planned for 11/14/2023) Following planned day: Day 1, Cycle 6 (Planned for 12/05/2023) Subjective Interval History Maguichicho Baker presents for ongoing management of melanoma. Recovering from surgery with ongoing fatigue. Had catheter exchanged/sclerosis on 11/10/23. Drain in place and continues with small amount serosanguinous drainage. Being careful with use of L arm. No new or concerning lesions or masses. Continues Pembro every 3 weeks. Presents with niece. No Known Allergies Outpatient Encounter Medications as of 11/14/2023: clopidogreL (PLAVIX) 75 mg tablet, Take 1 [...] mouth every morning, Disp: , Rfl: [DISCONTINUED] gabapentin (NEURONTIN) 100 mg capsule, Take 2 capsules (200 mg total) by mouth 3 (three) times a day for 14 days, Disp: 84 capsule, Rfl: 0 [DISCONTINUED] polyethylene glycol (MIRALAX) 17 gram/dose bulk powder, Take 17 g by mouth daily for14 days, Disp: 238 g, Rfl: 0 [DISCONTINUED] senna-docusate (PERICOLACE) 8.6-50 mg, Take 1 tablet by mouth daily for 14 days, Disp: 14 tablet, Rfl: 0 [] ethyl alcohoL 99 % solution, , Disp: , Rfl: [] ioversoL (OPTIRAY 350) injection, , Disp: , Rfl: [] lidocaine (XYLOCAINE) 10 mg/mL (1 %) injection, , Disp: , Rfl: Review of Systems: Review of systems per HPI and otherwise all other systems are negative Performance Status: ECOG 0 Objective Vitals: Most Recent : BP: 159/76 Temp: 36.5 ??C (97.7 ??F) [...] 72 hour(s)) Comprehensive metabolic panel Collection Time: 11/14/23 9:31 AM Result Value Ref Range Sodium 144 135 - 145 mmol/L Potassium, pl 3.2 (L) 3.3 - 4.9 mmol/L Chloride 107 97 - 110 mmol/L CO2 28 22 - 32 mmol/L Anion gap 9 2 - 15 mmol/L BUN 15 6 - 25 mg/dL Calcium 9.8 8.5 - 10.3 mg/dL Bilirubin, total 0.3 0.1 - 1.2 mg/dL Protein, pl 7.0 6.5 - 8.5 g/dL CBC with auto differential Collection Time: 11/14/23 9:31 AM Result Value Ref Range WBC 9.3 3.8 - 9.9 K/cumm Hgb 12.4 11.9 - 15.5 g/dL Hct 36.8 35.6 - 45.5 % Plt 296 150 - 400 K/cumm MPV 9.2 9.1 - 12.3 fL RBC 4.21 3.90 - 5.20 M/cumm MCV 87.4 81.3 - 96.4 fL MCH 29.5 27.1 - 33.3 pg MCHC 33.7 32.3 - 35.7 g/dL RDW CV 12.9 11.1 - 14.9 % RDW SD 41.2 35.7 - 48.1 fL NRBC abs 0.00 0.00 - 0.01 K/cumm Differential, auto Collection Time: 11/14/23 9:31 AM Result Value Ref Range Neutrophil abs 5.6 1.5 - 6.5 K/cumm Imm gran abs 0.1 0.0 - 0.1 K/cumm Lymphocyte abs 2.6 0.8 - 3.3 K/cumm Monocyte abs 0.7 0.2 - 0.8 K/cumm Eosinophil abs 0.2 0.0 - 0.5 K/cumm Basophil abs 0.1 0.0 - 0.1 K/cumm Neutrophil pct 60.3 % Imm gran pct 0.5 % Lymphocyte pct 28.4 % Monocyte pct 7.8 % Eosinophil pct 2.4 % Basophil pct 0.6 % Radiology: None today Assessment/Plan Magui Baker is [...] (08/08/23 - Ongoing) - Restaging in December All questions answered. Reiterated that I remain available for additional questions that may arise going forward. [place] YAPP-C Nurse Practitioner Medical Oncology Folder Seamer Automatic completed by using M*Modal Fluency Direct speaking software, therefore, transcriptionvariances may occur. EDUCATOR documented in this encounter Plan of Treatment Not on file documented as of this encounter Results * (ABNORMAL) Comprehensive metabolic panel (12/05/2023 9:59 AM CDT) Sodium 139 135 - 145 mmol/L Comment:Testing performed by : [facility], [address] [place] [id number] Potassium, pl 3.5 3.3 - 4.9 mmol/L [facility] Chloride 102 97 - 110 mmol/L [facility] CO2 27 22 - 32 mmol/L [facility] Anion gap 10 2 - 15 mmol/L [facility] BUN 25 6 - 25 mg/dL [facility] Creatinine 0.69 0.60 - 1.10 mg/dL [facility] Glucose 102 70 - 199 mg/dL [facility] Comment: Interpretive Data Fasting glucose [...] Calcium 11.1(H) 8.5 - 10.3 mg/dL [facility] Bilirubin, total 0.4 0.1 - 1.2 mg/dL [facility] Protein, pl 7.8 6.5 - 8.5 g/dL [facility] Albumin 4.4 3.5 - 5.0 g/dL [facility] Alk phos 49 40 - 130 Units/L [facility] ALT 17 7 - 45 Units/L [facility] AST 22 10 - 45 Units/L [facility] Blood 12/05/2023 9:59 AM CDT 12/05/2023 10:00 AM CDT Daryl Glasgow NP LAB BLOOD ORDERABLES Valencia l Result [facility] Department [place] [address] * CBC with auto differential (12/05/2023 9:59 AM CDT) WBC 8.3 3.8 - 9.9 K/cumm Comment:Testing performed by : [address] [address] Hgb 12.9 11.9 - 15.5 g/dL [facility] Comment:Testing performed by : [address] [address] Hct 38.2 35.6 - 45.5 % [facility] Comment:Testing performed by : [address] [address] Plt 287 150 - 400 K/cumm [facility] Comment:Testing performed by : [address] [address] MPV 9.4 9.1 - 12.3 fL [facility] RBC 4.43 3.90 - 5.20 M/cumm [facility] MCV 86.2 81.3 - 96.4 fL [facility] MCH 29.1 27.1 - 33.3 pg [facility] MCHC 33.8 32.3 - 35.7 g/dL [facility] RDW CV 12.8 11.1 - 14.9 % [facility] RDW SD 40.2 35.7 - 48.1 fL [facility] NRBC abs 0.00 0.00 - 0.01 K/cumm [facility] Blood 12/05/2023 9:59 AM CDT 12/05/2023 10:00 AM CDT Daryl Glasgow NP LAB BLOOD ORDERABLES Valencia l Result Performing Organization Address [facility] [place] [address] * Lactate dehydrogenase (LD) (12/05/2023 9:59 AM CDT) Lactate dehydrogenase (LDH) 186 100 - 250 Units/L Comment:Testing performed by : [facility], [address] [place] [address] Blood 12/05/2023 9:59 AM CDT 12/05/2023 10:00 AM CDT Daryl Glasgow NP LAB BLOOD ORDERABLES Valencia l Result Performing Organization Address [facility] [place] [address] * (ABNORMAL) Thyroid Function [place] (12/05/2023 9:59 AM CDT) Pathologist [facility] TSH <0.01(L) 0.30 - 4.20 mcIUnit/mL Blood 12/05/2023 9:59 AM CDT 12/05/2023 11:38 AM CDT Daryl Glasgow NP LAB BLOOD ORDERABLES Valencia l Result Performing Organization Address [facility] [place] [address] documented in this encounter Visit Diagnoses Diagnosis Malignant melanoma of unknown origin (HCC)- Primary documented in this encounter Orders Appointment Requests Count Last Ordered Date Fi rst Ordered Date ONCBCN CLINIC APPOINTMENT REQUEST 2 2 024 11/14/2023 ONCBCN LAB APPOINTMENT 1 12/05/2023 ONCBCN RETURN CHEMO 1.5HRS 1 12/05/2023 documented in this encounter Care Teams Dietetics Professor Relationship Specialty Start Date End Date Becky Conroy NP [address] [place] [address] PCP - General Nurse Practitioner 07/06/23 Jose Chairez MD PhD [address] [facility] [address] [place], [place] [id number] Medical Oncologist/Horticultural Farmworker Medical Oncology 08/14/23 Evelin Lofton MD [address] [place] [address] Referring Physician Cardiovascular Disease 08/14/23 documented as of this encounter
--- OUTSIDE RECORDS SUMMARY | 2024-09-17 04:22 | XMS_ITS | Encounter Summary ---
Author Organization [facility] Healthcare Address [address] [place] [address] Care Team Providers Care Computed Tomography Technologist Name Role Phone Becky Conroy NP Primary Care Provider [phone] Jose Chairez MD PhD Unavailable [phone]- [phone] Evelin Lofton MD Unavailable [phone] Reason for Referral * Diagnostic Imaging (Routine) - Closed Specialty Diagnoses / Procedures Referred By Contac t Referred To Contact Radiology Diagnoses Metastatic malignant melanoma (HCC) Procedures IR Non Vascular Sclerosis Landon Ignacio PA [address] [facility] [address] [place] [address] Phone: tel: fax: [address] [address] Referral ID Status Reason Start Date Expiration Date Visits Re quested Visits Authorized [id number] Closed 11/10/2023 12/09/2024 1 1 INSTRUCTOR * Diagnostic Imaging (Routine) - Closed Specialty Diagnoses / Procedures Referred By Contac t Referred To Contact Radiology Diagnoses Metastatic malignant melanoma (HCC) Procedures IR Drainage Catheter Exchange Landon Davis MD [address] [facility] [id number] [place] [address] Phone: tel: fax: [address] [phone] Referral ID Status Reason Start Date Expiration Date Visits Re quested Visits Authorized [id number] Closed 11/02/2023 12/01/2024 1 1 INSTRUCTOR Reason for Visit * Diagnostic Imaging (Routine) - Closed Specialty Diagnoses / Procedures Referred By Contac t Referred To Contact Radiology Diagnoses Metastatic malignant melanoma (HCC) Procedures IR Drainage Catheter Exchange Landon Davis MD [address] [facility] [id number] [place] [address] Phone: tel: fax: [address] [phone] Referral ID Status Reason Start Date Expiration Date Visits Re quested Visits Authorized [id number] Closed 11/02/2023 12/01/2024 1 1 Encounter Details Date Type Department Care Team (Latest Contact Info) Description 11/10/2023 8:05 AM LAW INSTRUCTOR - 11/10/2023 11:59 PM LAW INSTRUCTOR Hospital Encounter [facility] Radiology [facility] [address] [place] [address] Metastatic malignant melanoma (HCC) Discharge Disposition: Discharge [...] on file Legal Sex Female 1:54 AM LAW INSTRUCTOR Gender Identity Not on file Sexual Orientation Not on file documented as of this encounter Last Filed Vital Signs Vital Sign Reading Time Taken Comments Blood Pressure 143/66 11/10/2023 10:25 AM LAW INSTRUCTOR Pulse 70 11/10/2023 10:25 AM LAW INSTRUCTOR Temperature 36.6 ??C (97.9 ??F) 11/10/2023 10:[address] Respiratory Rate 19 11/10/2023 10:25 AM LAW INSTRUCTOR Oxygen Saturation 95% 11/10/2023 10:25 AM LAW INSTRUCTOR Inhaled Oxygen Concentration - - Weight - - Height - - Body Mass Index - - documented in this encounter Discharge Instructions * Discharge Instructions* Landon Ignacio PA - 11/10/2023 10:18 AM LAW INSTRUCTOR Interventional Radiology Outpatient Discharge Instructions/Note Diagnosis:axillary lymphocele Procedure:Drain evaluation, exchange and sclerosis Limitations: [] You received medication that may affect [...] Procedure Site Care: [] teaching sheet given [x] You may shower today. [x] Change the dressing daily and if it becomes wet or dirty. [x] It is okay to remove the dressing and gently wash the area while in the shower. You may also cover the site with plastic while showering if you wish to clean the site separately with a washcloth and warm soapy water. [x] Do not submerge the catheter under water (no bathtubs, pools, etc.) Drainage Tube Care: [] Flush tube with 5 mL Normal Saline [] Flush tube with 10 mL Normal Saline [] Flush tube once a day [] Flush tube twice a day [x] Do not flush the tube [] Other: [x] Record drainage output every day. [] Your tube is capped. Uncap the tube after or if severe pain or fever develops. (Please see teaching sheet). [x] Call Interventional Radiology if there is leakage around the tube or the tube stops draining. To contact an Interventional Radiologist at [facility] call [phone] Monday through Monday from 7:30am-4:30pm. At all other times call [phone] and ask that the Interventional Radiologist be paged. To contact an [facility]iologist at [facility] call [phone] Monday through Monday from 7:30am-3:30pm. To contact an Interventional Radiologist RN at [facility] call [phone] Monday through Monday from 7:00 am-5:00 pm. To schedule an appointment with Interventional Radiology at [facility] call [phone] Monday through Monday from 7:30 am-4:00 pm. For after hours, follow the telephone recording prompts to reach the on-call Interventional Radiology physician. Special instructions: Please call Interventional Radiology for any procedure related questions or problems including: Extreme swelling or bruising at the site. Unusual drainage or bleeding from procedure site. Fever of 101.5 F for more than 24 hours. Severe procedure related pain. Follow up care: [] Return to Interventional Radiology on at Please come to: [] 3rd Floor [facility] [] 4th [facility] [] [facility] [] [facility] Please call [phone] if you need to schedule a follow up appointment. INSTRUCTOR documented in this encounter Medications at Time [...] Skin Infections Apply topically as needed 08/15/2023 omega-3 fatty acids 500 mg capsuleIndications :supplement [...] encounter Miscellaneous Notes * Post-Procedure Note - Landon Ignacio PA - 11/10/2023 9:00 AM LAW INSTRUCTOR Radiology Brief Post Procedure Note Provider: NAVIN Goodman Sedation/Anesthesia: Local Pre-Op/Pre-Procedure Diagnosis: left axillary lymphocele Post-Op/Post-Procedure Diagnosis: same Procedure Performed: Drain evaluation, exchange and sclerosis Procedure Findings: drain exchanged. Cavity at least 15cc in volume. Sclerosed with absolute ethanol Complications: None Estimated Blood Loss: None Specimens: None Condition: Stable Full report to follow. INSTRUCTOR * Pre-Procedure Note - Landon Ignacio PA - 11/10/2023 9:00 AM LAW INSTRUCTOR Radiology Procedure Plan Indication: left axillary lymph node dissection with high drain output Planned Procedure: drain eval and exchange with possible sclerosis INSTRUCTOR documented in this encounter Plan of Treatment Not on file documented as of this encounter Procedures Procedure Name Priority Date/Time Associated Diagnosis Comments DRAINAGE CATHETER EXCHANGE Schedule Routine, Read Routine (OP Routine) 11/10/2023 10:11 AM LAW INSTRUCTOR Metastatic malignant melanoma (HCC) CELL COUNT W/REFLEX DIFFERENTIAL, BODY FLUID Routine 11/10/2023 10:00 AM LAW INSTRUCTOR documented in this encounter Results * IR Non Vascular Sclerosis (11/23/2023 1:10 PM CDT) Anatomical Region Laterality Modality Body Radio Fluoroscop y 11/23/2023 2:01 PM CDT Impressions 11/23/2023 2:01 PM CDT Left axillary lymphocele measuring 7 cc in volume. Successful image guided sclerosis. Catheter was exchanged to facilitate drainage and resolution. PLAN: Continue to monitor catheter output as well as the patient's clinical condition. The catheter should not be flushed. ?? The patient will follow-up with us in ??2 weeks for repeat sclerosis and drain evaluation. If questions arise, please contact us by calling [phone]. Electronically signed by: Kendrick Estrella PA-C Narrative 11/23/2023 2:01 PM CDT EXAMINATION: ??DRAINAGE CATHETER EVALUATION AND EXCHANGE AND SCLEROSIS HISTORY: ??78-year-old female with history of left axillary lymph node dissection who has a surgical drain in place with 70-80 cc clear yellow output daily. Patient referred for drain evaluation, exchange and possible sclerosis. ??Last exchange and sclerosis performed 11/10/2023. PROVIDER PRESENCE: Kendrick Estrella PA-C, was present from the beginning to the end of the procedure. ?? SEDATION: ??No sedation TECHNIQUE: ??Prior to beginning the procedure, [place] Protocol was used to confirm the patient's identity and planned procedure. Fluoroscopy time has been recorded in the electronic medical record. Maximum sterile barriers including cap, mask, hand hygiene, sterile gloves, sterile gown, large sterile drape and 2% chlorhexidine for cutaneous antisepsis were used. After obtaining a clerk cashier image, the catheter was injected with dilute contrast and multiple diagnostic fluoroscopic spot images were obtained. The skin overlying the collection was sterilely prepped, draped and infiltrated with 1% buffered lidocaine. The catheter was then exchanged over a [facility] guidewire for a new 16 [place] cope catheter. ??Limited contrast injection confirmed appropriate [...] catheter injection demonstrate a discrete cavity measuring 7cc size. The existing surgical drain was occluded. The catheter was draining clear yellow fluid. Images from the catheter exchange show the catheter tip centered in the left axillary cavity. Procedure Note Kendrick Estrella PA - 11/23/2023 EXAMINATION: DRAINAGE CATHETER EVALUATION AND EXCHANGE AND SCLEROSIS HISTORY: 78-year-old female with history of left axillary lymph node dissection who has a surgical drain in place with 70-80 cc clear yellow output daily. Patient referred for drain evaluation, exchange and possible sclerosis. Last exchange and sclerosis performed 11/10/2023. PROVIDER PRESENCE: Kendrick Estrella PA-C, was present from the beginning to the end of the procedure. SEDATION: No sedation TECHNIQUE: Prior to beginning the procedure, [place] Protocol was used to confirm the patient's identity and planned procedure. Fluoroscopy time has been recorded in the electronic medical record. Maximum sterile barriers including cap, mask, hand hygiene, sterile gloves, sterile gown, large sterile drape and 2% chlorhexidine for cutaneous antisepsis were used. After obtaining a clerk cashier image, the catheter was injected with dilute contrast and multiple diagnostic fluoroscopic spot images were obtained. The skin overlying the collection was sterilely prepped, draped and infiltrated with 1% buffered lidocaine. The catheter was then exchanged over a [facility] guidewire for a new 16 [place] cope catheter. Limited contrast injection confirmed appropriate [...] catheter injection demonstrate a discrete cavity measuring 7cc size. The existing surgical drain was occluded. The catheter was draining clear yellow fluid. Images from the catheter exchange show the catheter tip centered in the left axillary cavity. IMPRESSION: Left axillary lymphocele measuring 7 cc in volume. Successful image guided sclerosis. Catheter was exchanged to facilitate drainage and resolution. PLAN: Continue to monitor catheter output as well as the patient's clinical condition. The catheter should not be flushed. The patient will follow-up with us in 2 weeks for repeat sclerosis and drain evaluation. If questions arise, please contact us by calling [phone]. Electronically signed by: Kendrick Estrella PA-C us Landon HOLDEN IMG IR PROCEDURES Final Re sult * IR Drainage Catheter Exchange (11/10/2023 10:11 AM LAW INSTRUCTOR) Anatomical Region Laterality Modality Body N/A Radio Fluoroscop y 11/10/2023 2:05 PM LAW INSTRUCTOR Impressions 11/10/2023 2:05 PM LAW INSTRUCTOR Left axillary lymphocele measuring 15 cc in [...] questions arise, please contact us by calling [phone]. Electronically signed by: Landon Ignacio PA-C Narrative 11/10/2023 2:05 PM LAW INSTRUCTOR EXAMINATION: ??DRAINAGE CATHETER EVALUATION AND EXCHANGE HISTORY: ??78-year-old female with history of left axillary lymph node dissection who has a surgical drain in place with 100 cc clear yellow output daily. Patient referred for drain evaluation, exchange and possible sclerosis. PROVIDER PRESENCE: Lanodn Ignacio PA-C, was present from the beginning to the end of the procedure. ?? SEDATION: ??No sedation TECHNIQUE: ??Prior to beginning the procedure, [place] Protocol was used to confirm the patient's identity and planned procedure. Fluoroscopy time has been recorded in the electronic medical record. Maximum sterile barriers including cap, mask, hand hygiene, sterile gloves, sterile gown, large sterile drape and 2% chlorhexidine for cutaneous antisepsis were used. After obtaining a clerk cashier image, the catheter was injected with dilute contrast and multiple diagnostic fluoroscopic spot images were obtained. The skin overlying the collection was sterilely prepped, draped and infiltrated with 1% buffered lidocaine. The catheter was then exchanged over a [place] guidewire for a new 16 [place] cope catheter. ??Limited contrast injection confirmed appropriate [...] sedation TECHNIQUE: Prior to beginning the procedure, [place] Protocol was used to confirm the patient's identity and planned procedure. Fluoroscopy time has been recorded in the electronic medical record. Maximum sterile barriers including cap, mask, hand hygiene, sterile gloves, sterile gown, large sterile drape and 2% chlorhexidine for cutaneous antisepsis were used. After obtaining a clerk cashier image, the catheter was injected with dilute contrast and multiple diagnostic fluoroscopic spot images were obtained. The skin overlying the collection was sterilely prepped, draped and infiltrated with 1% buffered lidocaine. The catheter was then exchanged over a [place] guidewire for a new 16 [place] cope catheter. Limited contrast injection confirmed appropriate [...] questions arise, please contact us by calling [phone]. Electronically signed by: Landon Ignacio PA-C us Landon Davis MD IMG IR PROCEDURES Final Result * (ABNORMAL) Cell count w/rflx diff, body fluid (11/10/2023 10:00 AM LAW INSTRUCTOR) Specimen type, fld Left axillary node [facility] Color, fld Yellow [facility] Clarity, fld Cloudy(A) Clear [facility] Nucleated cells, fld 0 /cumm [facility] Comment: Abundant bacteria present per Darlin Ortiz MD (LMR) Interpretive Data Unless otherwise specified, the reference range and other method performance specifications have not been established for CSF/Body Fluid tests. ??The test results should be integrated into the clinical context for interpretation. Current interpretive data was last revised on 2019. RBC, fld 258 /cumm [facility] Fluid 11/10/2023 10:0 0 AM LAW INSTRUCTOR 11/10/2023 3:06 PM LAW INSTRUCTOR Landon Davis MD LAB BODY FLUIDS AND STOO LS ORDERABLES Final Result [facility] Department [place] [address] documented in this encounter Visit Diagnoses Diagnosis Metastatic malignant melanoma (HCC) Metastatic malignant melanoma (HCC) documented in this encounter Administered Medications Inactive Administered Medications - up to 3 most recent administrations Medication Order MAR Action Action Date Dose Rate Site ethyl alcohoL 99 % solution As needed, Starting on Mon11/10/23 at 1001, Intra-Op Given 11/10/2023 10:01 AM LAW INSTRUCTOR 10 mL ioversoL (OPTIRAY 350) injection As needed, Starting on Mon11/10/23 at 1013, Intra-Op Given 11/10/2023 10:13 AM LAW INSTRUCTOR 20 mL lidocaine (XYLOCAINE) 10 mg/mL (1 %) injection As needed, Starting on Mon11/10/23 at 0950, Intra-Procedure (IR), Indications: Administration of Local AnesthesiaIndications:Administ ration of Local Anesthesia Given 11/10/2023 9:50 AM LAW INSTRUCTOR 5 mL Left Axilla documented in this encounter Orders Discharge Count Last Ordered Date First Orde red Date DISCHARGE PATIENT 1 11/10/2023 documented in this encounter Care Teams Computed Tomography Technologist Relationship Specialty Start Date End Date Becky Conroy NP [address] [place] [address] PCP - General Nurse Practitioner 07/06/23 Jose Chairez MD PhD [address] [facility] [address] [place] [address] Medical Oncologist/Quality Assurance Analyst Medical Oncology 08/14/23 Evelin Lofton MD [address] [place] [address] Referring Physician Cardiovascular Disease 08/14/23 documented as of this encounter
--- OUTSIDE RECORDS SUMMARY | 2024-09-17 04:22 | XMS_ITS | Encounter Summary ---
Author Organization [facility] Address [address] [place] [address] Phone Care Team Providers Care Light Rail Operator Name Role Phone Becky Conroy NP Primary Care Provider [phone] Jose Chairez MD PhD Unavailable [phone] Evelin Lofton MD Unavailable [phone] Reason for Visit * Reason Comments Immunotherapy * Episode Based Medications (Routine) - Closed Specialty Diagnoses / Procedures Referred By Contac t Referred To Contact Oncology Diagnoses Malignant melanoma of unknown origin (HCC) Jose Chairez MD PhD [address] [facility] [address] [place] [address] Phone: tel: fax: [facility] [address] [place] [phone] Phone: tel: fax: Referral ID Status Reason Start Date Expiration Date Visits Re quested Visits Authorized [id number] Closed 05/27/2024 09/04/2024 1 30 Encounter Details Date Type Department Care Team (Late st Contact Info) Description 12/05/2023 11:30 AM CDT Infusion [facility] Oncology [address] [place] [phone] Malignant melanoma of unknown origin (HCC) [...] on file Legal Sex Female 1:54 AM SCOUT Gender Identity Not on file Sexual Orientation Not on file documented as of this encounter Nursing Notes * Charlotte Engle, MARGAUX - 12/05/2023 11:30 AM CDT Oncology Nursing Note [facility] ONCOLOGY Magui Baker is a 78 y.o. female who presents for treatment cycle 6, day 1 of Pembrolizumab. Pre-treatment Nursing Assessment Nursing Assessment LOC: Alert Constitutional: Fatigue Fatigue: Occassional Any falls since your last visit?: No Orientation: Oriented x4 Peripheral Neuropathy: No Oral Mucosa Grade: Normal (0) Pt states has potential to be ?: N/A Shortness of Breath?: No Appetite: Fair Nausea/Vomiting: No (nausea- takes meds when needed) Diarrhea: No Constipation: No Last BM Date: 12/04/23 Skin Condition/Temp: Warm, Dry Swelling: Yes Swelling location: LLE (states it goes away) Additional Notes: States no new issues or concerns. Saw team today. BP: 152/81 Temp: 36.4 ??C (97.6 ??F) Temp src: Oral Pulse: 73 Resp: 17 SpO2: 93 % Weight: 64.9 kg (143 lb) Pain Score: 0 - No pain [...] mL/hr, Administer over 30 Minutes, Once, On Mon12/05/23 at 1215, For 1 dose, Use 0.2-5 micron filter, low-sorbing, low protein binding.Indications:Malignan t melanoma of unknown origin (HCC) New Bag 12/05/2023 12:06 PM CDT 200 mg 216 mL/hr documented in this encounter Orders Medications Ordered That Stalin ht Not Have Been Administered Count Last Ordered Date First Ordered Date pembrolizumab (KEYTRUDA) 200 mg in sodium chloride 0.9% 100 mL IVPB 1 12/05/2023 Nursing Count Last Ordered Date First Orde red Date ONCBCN TREATMENT PARAMETERS 3 1 12/05/2023 Appointment Requests Count Last Ordered Date Fi rst Ordered Date ONCBCN RETURN CHEMO 1.5HRS 1 12/05/2023 documented in this encounter Care Teams Light Rail Operator Relationship Specialty Start Date End Date Becky Conroy NP [address] [place] [address] PCP - General Nurse Practitioner 07/06/23 Jose Chairez MD PhD [address] [facility] [address] [place] [address] Medical Oncologist/Engineering Officer Medical Oncology 08/14/23 Evelin Lofton MD [address] [place] [address] Referring Physician Cardiovascular Disease 08/14/23 documented as of this encounter
--- OUTSIDE RECORDS SUMMARY | 2024-09-17 04:22 | XMS_ITS | Encounter Summary ---
Author Organization [facility] Address [address] [place] [address] Phone Care Team Providers Care Service Center Manager Name Role Phone Becky Conroy NP Primary Care Provider [phone] Jose Chairez MD PhD Unavailable [phone] Evelin Lofton MD Unavailable [phone] Reason for Visit * Episode Based Medications (Routine) - Closed Specialty Diagnoses / Procedures Referred By Contac t Referred To Contact Oncology Diagnoses Malignant melanoma of unknown origin (HCC) Jose Chairez MD PhD [address] [facility] [address] [place] [address] Phone: tel: fax: [facility] [address] [place] [phone] Phone: tel: fax: Referral ID Status Reason Start Date Expiration Date Visits Re quested Visits Authorized [id number] Closed 05/27/2024 09/04/2024 1 30 Encounter Details Date Type Department Care Team (Late st Contact Info) Description 11/14/2023 10:15 AM CO FOUNDER AND CHIEF STRATEGY OFFICER Lab [facility] Oncology [address] [place] [phone] Malignant melanoma of unknown origin (HCC) Social [...] on file Legal Sex Female 1:54 AM CO FOUNDER AND CHIEF STRATEGY OFFICER Gender Identity Not on file Sexual Orientation Not on file documented as of this encounter Plan of Treatment Not on file documented as of this encounter Visit Diagnoses Diagnosis Malignant melanoma of unknown origin (HCC) documented in this encounter Orders Appointment Requests Count Last Ordered Date Fi rst Ordered Date ONCBCN LAB APPOINTMENT 1 11/14/2023 documented in this encounter Care Teams Service Center Manager Relationship Specialty Start Date End Date Becky Conroy NP [address] [place] [address] PCP - General Nurse Practitioner 07/06/23 Jose Chairez MD PhD [address] [facility] [address] [place] [address] Medical Oncologist/Home Sales Service Professional Medical Oncology 08/14/23 Evelin Lofton MD [address] [place] [address] Referring Physician Cardiovascular Disease 08/14/23 documented as of this encounter
--- OUTSIDE RECORDS SUMMARY | 2024-09-17 04:22 | XMS_ITS | Encounter Summary ---
Author Organization [facility] Address [address] [place] [address] Phone Care Team Providers Care Inspector Conveyor Line Name Role Phone Becky Conroy NP Primary Care Provider [phone] Jose Chairez MD PhD Unavailable [phone]- [phone] Evelin Lofton MD Unavailable [phone] Encounter Details Date Type Department Care Team (Late st Contact Info) Description 11/08/2023 Telephone [facility] Surgery [facility] Advanced Medicine 5th [place] [address] [place] [address] Hu Giordano Social History Tobacco Use Types Packs/Day Years [...] on file Legal Sex Female 1:54 AM SECURITY SOLUTIONS ARCHITECT Gender Identity Not on file Sexual Orientation Not on file documented as of this encounter Miscellaneous Notes * Telephone Encounter - Hu Giordano - 11/08/2023 10:38 AM CST Pt called in reporting that the skin around her drng tube is now red and she says the drng is a cloudy dark urine with what looks like either pieces of tissue or puss. She declines pain, fever, warmth to the touch. She will be seen in IR on Monday. Pt is going to have her daughter help her upload apic tonight of her incision and the drng. RN will watch for pic tomorrow am. PC to pt to let her know we did receive her pics. RN has spoken with the IR dept where she will be seen at 0900 11/10/23. They were made aware of the redness around the insertion site, and the cloudy drng. They explained the pt is fine to wait until her appt tomorrow as long as she doesn't have a fever, is not in extreme pain, there is no drng from the insertion site, and the tube has not stopped draining. Pt says she still does not have any of the above and will let us know if she develops them and will otherwise be seen in IR for her appt tomorrow. RITY SOLUTIONS ARCHITECT RITY SOLUTIONS ARCHITECT documented in this encounter Plan of Treatment Not on file documented as of this encounter Visit Diagnoses Not on filedocumented in this encounter Care Teams Inspector Conveyor Line Relationship Specialty Start Date End Date Becky Conroy NP [address] [place] [address] PCP - General Nurse Practitioner 07/06/23 Jose Chairez MD PhD [address] [facility] [address] [place] [address] Medical Oncologist/Unemployment Examiner Medical Oncology 08/14/23 Evelin Lofton MD [address] [place] [address] Referring Physician Cardiovascular Disease 08/14/23 documented as of this encounter
--- OUTSIDE RECORDS SUMMARY | 2024-09-17 04:22 | XMS_ITS | Encounter Summary ---
Author Organization [facility] Healthcare Address [address] [place] [address] Care Team Providers Care Intervention Nurse Name Role Phone Becky Conroy NP Primary Care Provider [phone] Jose Chairez MD PhD Unavailable [phone] Evelin Lofton MD Unavailable [phone] Reason for Referral * Diagnostic Imaging (Routine) - Closed Specialty Diagnoses / Procedures Referred By Korey harkins Referred To Contact Radiology Diagnoses Metastatic malignant melanoma (HCC) Procedures IR Non Vascular Sclerosis Landon Ignacio PA [address] [address] Phone: tel: fax: [address] [address] Referral ID Status Reason Start Date Expiration Date Visits Re quested Visits Authorized [id number] Closed 11/10/2023 12/09/2024 1 1 Reason for Visit * Diagnostic Imaging (Routine) - Closed Specialty Diagnoses / Procedures Referred By Korey harkins Referred To Contact Radiology Diagnoses Metastatic malignant melanoma (HCC) Procedures IR Non Vascular Sclerosis Landon Ignacio PA [address] [address] Phone: tel: fax: [address] [address] Referral ID Status Reason Start Date Expiration Date Visits Re quested Visits Authorized [id number] Closed 11/10/2023 12/09/2024 1 1 Encounter Details Date Type Department Care Team (Late st Contact Info) Description 11/23/2023 10:41 AM CDT - 11/23/2023 11:59 PM CDT Hospital Encounter [facility] Radiology [facility] [address] [place] [address] Kendrick Estrella PA [address] [facility] [address] [place] [address] Metastatic malignant melanoma (HCC) Discharge Disposition: Discharge [...] making you feel afraid or unsafe? 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 Gender Identity Not on file Sexual Orientation Not on file documented as of this encounter Last Filed Vital Signs Vital Sign Reading Time Taken Comments Blood Pressure 160/59 11/23/2023 1:10 PM CDT Pulse 66 11/23/2023 1:10 PM CDT Temperature 36.1 ??C (97 ??F) 11/23/2023 1:10 PM CDT Respiratory Rate 18 11/23/2023 1:10 PM CDT Oxygen Saturation 98% 11/23/2023 1:10 PM CDT Inhaled Oxygen Concentration - - Weight - - Height - - Body Mass Index - - documented in this encounter Discharge Instructions * Discharge Instructions* Kendrick Estrella PA - 11/23/2023 12:37 PM CDT Interventional Radiology Outpatient Discharge Instructions/Note Diagnosis: Axillary Lymphocele Procedure:Drain Evaluation and Sclerosis Limitations: [] You received medication that may [...] day [] Flush tube twice a day [] Do not flush the tube [] Other: [] Record drainage output every day. [] Your tube is capped. Uncap the tube after or if severe pain or fever develops. (Please see teaching sheet). [] Call Interventional Radiology if there is leakage around the tube or the tube stops draining. To contact an Interventional Radiologist at [facility] call [phone] Monday through Monday from 7:30am-4:30pm. At all other times call [phone] and ask that the Interventional Radiologist be paged. To contact an Interventional Radiologist at [facility] call [phone] Monday through Monday from 7:30am-3:30pm. To contact an Interventional Radiologist RN at [facility] call [phone] Monday through Monday from 7:00 am-5:00 pm. To schedule an appointment with Interventional Radiology at [facility] call [phone] Monday through Monday from 7:30 am-4:00 pm. [...] at Please come to: [] 3rd Floor [facility] [] 4th floor [facility] [] [facility] [] [facility] Please call [phone] if you need to schedule a follow up appointment. documented in this encounter Medications at Time [...] encounter Miscellaneous Notes * Post-Procedure Note - Kendrick Estrella PA - 11/23/2023 11:00 AM CDT Radiology Brief Post Procedure Note Provider: NAVIN Mccurdy Sedation/Anesthesia: Local Pre-Op/Pre-Procedure Diagnosis: left axillary lymphocele Post-Op/Post-Procedure Diagnosis: same Procedure Performed: Drain evaluation, exchange and sclerosis Procedure Findings: drain exchanged due to clogging. Cavity approximately 7cc in volume. Sclerosed with 5cc of absolute ethanol Complications: None Estimated Blood Loss: None Specimens: None Condition: Stable Full report to follow. * Pre-Procedure Note - Kendrick Estrella PA - 11/23/2023 11:00 AM CDT Radiology Procedure Plan Indication: left axillary lymph node dissection with high drain output Planned Procedure: drain eval and exchange with possible sclerosis documented in this encounter Plan of Treatment Not on file documented as of this encounter Procedures Procedure Name Priority Date/Time Associated Diagnosis Comments IR NON VASCULAR SCLEROSIS Schedule Routine, Read Routine (OP Routine) 11/23/2023 1:10 PM CDT Metastatic malignant melanoma (HCC) documented in [...] questions arise, please contact us by calling [phone]. Electronically signed by: KAREN Sifuentes 11/23/2023 2:01 PM CDT EXAMINATION: ??DRAINAGE CATHETER [...] sedation TECHNIQUE: ??Prior to beginning the procedure, [place] Protocol was used to confirm the patient's identity and planned procedure. Fluoroscopy time has been recorded in the electronic medical record. Maximum sterile barriers including cap, mask, hand hygiene, sterile gloves, sterile gown, large sterile drape and 2% chlorhexidine for cutaneous antisepsis were used. After obtaining a medicaid nurse image, the catheter was injected with dilute contrast and multiple diagnostic fluoroscopic spot images were obtained. The skin overlying the collection was sterilely prepped, draped and infiltrated with 1% buffered lidocaine. The catheter was then exchanged over a 121cast guidewire for a new 16 Ethiopian cope catheter. ??Limited contrast injection confirmed appropriate [...] sedation TECHNIQUE: Prior to beginning the procedure, [place] Protocol was used to confirm the patient's identity and planned procedure. Fluoroscopy time has been recorded in the electronic medical record. Maximum sterile barriers including cap, mask, hand hygiene, sterile gloves, sterile gown, large sterile drape and 2% chlorhexidine for cutaneous antisepsis were used. After obtaining a medicaid nurse image, the catheter was injected with dilute contrast and multiple diagnostic fluoroscopic spot images were obtained. The skin overlying the collection was sterilely prepped, draped and infiltrated with 1% buffered lidocaine. The catheter was then exchanged over a 121cast guidewire for a new 16 Ethiopian cope catheter. Limited contrast injection confirmed appropriate [...] questions arise, please contact us by calling [phone]. Electronically signed by: Kendrick Estrella PA-C us Landon HOLDEN [facility] IR PROCEDURES Final Re sult documented in this encounter Visit Diagnoses Diagnosis Metastatic malignant melanoma (HCC) documented in this encounter Administered Medications Inactive Administered Medications - up to 3 most recent administrations Medication Order MAR Action Action Date Dose Rate Site ethyl alcohoL 99 % solution As needed, Starting on Sherri 11/23/23 at 1256, Intra-Op Given 11/23/2023 12:56 PM CDT 3 mL Left Breast lidocaine (PF) (XYLOCAINE) 10 mg/mL (1 %) preservative free injection As needed, Starting on Sherri 11/23/23 at 1252, Intra-Procedure (IR), Indications: Administration of Local AnesthesiaIndications:Administ ration of Local Anesthesia Given 11/23/2023 12:52 PM CDT 5 mL Left Breast documented in this encounter Orders Discharge Count Last Ordered Date First Orde red Date DISCHARGE PATIENT 1 11/23/2023 documented in this encounter Care Teams Intervention Nurse Relationship Specialty Start Date End Date Becky Conroy, EDUCATIONAL GUIDANCE COUNSELOR [address] [place] [address] PCP - General Nurse Practitioner 07/06/23 Jose Chairez MD PhD [address] [facility] [address] [place], [place] [id number] Medical Oncologist/Shrink Pit Operator Medical Oncology 08/14/23 Evelin Lofton MD [address] [place] [address] Referring Physician Cardiovascular Disease 08/14/23 documented as of this encounter
--- OUTSIDE RECORDS SUMMARY | 2024-09-17 04:22 | XMS_ITS | Encounter Summary ---
Author Organization [facility] Healthcare Address [address] [place] [address] Care Team Providers Care Donkey Doctor Name Role Phone Becky Conroy NP Primary Care Provider [phone] Jose Chairez MD PhD Unavailable [phone]- [phone] Evelin Lofton MD Unavailable [phone] Encounter Details Date Type Department Care Team (Late st Contact Info) Description 11/14/2023 9:25 AM RN WELLNESS Lab [facility] [address] [place] [address] Malignant melanoma of unknown origin (HCC) [...] on file Legal Sex Female 1:54 AM RN WELLNESS Gender Identity Not on file Sexual Orientation Not on file documented as of this encounter Plan of Treatment Not on file documented as of this encounter Procedures Procedure Name Priority Date/Time Associated Diagnosis Comments EGFR STAT 11/14/2023 9:31 AM RN WELLNESS Malignant melanoma of unknown origin (HCC) DIFFERENTIAL AUTO Routine 11/14/2023 9:3 1 AM RN WELLNESS Malignant melanoma of unknown origin (HCC) THYROID FUNCTION CASCADE Routine 11/14/2023 9:31 AM RN WELLNESS Malignant melanoma of unknown origin (HCC) CBC WITH AUTO DIFFERENTIAL Routine 11/14/2023 9:31 AM RN WELLNESS Malignant melanoma of unknown origin (HCC) T4, FREE Routine 11/14/2023 9:31 AM RN WELLNESS Malignant melanoma of unknown origin (HCC) LACTATE DEHYDROGENASE Routine 11/14/2023 9:31 AM RN WELLNESS Malignant melanoma of unknown origin (HCC) COMPREHENSIVE METABOLIC PANEL STAT 11/14/2023 9:31 AM RN WELLNESS Malignant melanoma of unknown origin (HCC) documented in this encounter Results * (ABNORMAL) T4, free (11/14/2023 9:31 AM RN WELLNESS) Free T4 1.95(H) 0.90 - 1.70 ng/dL [facility] Blood 11/14/2023 9:31 AM RN WELLNESS 11/14/2023 11:07 AM RN WELLNESS [facility]ative [facility] - 11/14/2023 11:58 AM RN WELLNESS This test was reflexed from a TSH result. us Jose Chairez MD PhD LAB BLOOD ORDERABLES Edited Result - Final [facility] One [facility] Department [place] [address] * eGFR (11/14/2023 9:31 AM RN WELLNESS) eGFR 90 >=60 mL/min/1. 73 m2 [facility] Comment: Interpretive Data Reference Interval Normal ?>/= [...] interpretive data was last reviewed 2021. Blood 11/14/2023 9:31 AM RN WELLNESS 11/14/2023 9:32 AM RN WELLNESS Jose Chairez MD PhD LAB BLOOD ORDERABLES Final Result [facility] One [facility] Department [place] [address] * Differential, auto (11/14/2023 9:31 AM RN WELLNESS) Neutrophil abs 5.6 1.5 - 6.5 K/cumm [facility] Comment:Testing performed by : [facility], [address] [place] [address] Imm gran abs 0.1 0.0 - 0.1 K/cumm [facility] Lymphocyte abs 2.6 0.8 - 3.3 K/cumm [facility] Monocyte abs 0.7 0.2 - 0.8 K/cumm [facility] Eosinophil abs 0.2 0.0 - 0.5 K/cumm [facility] Basophil abs 0.1 0.0 - 0.1 K/cumm [facility] Neutrophil pct 60.3 % [facility] Comment: Interpretive Data Percent cell count reference ranges are not reported, since discordance with absolute values may lead to misinterpretation of CBC data. Current Interpretive Data was last revised on 2017. Imm gran pct 0.5 % [facility] Comment: Interpretive Data Percent cell count reference ranges are not reported, since discordance with absolute values may lead to misinterpretation of CBC data. Current Interpretive Data was last revised on 2017. Lymphocyte pct 28.4 % [facility] Comment: Interpretive Data Percent cell count reference ranges are not reported, since discordance with absolute values may lead to misinterpretation of CBC data. Current Interpretive Data was last revised on 2017. Monocyte pct 7.8 % [facility] Comment: Interpretive Data Percent cell count reference ranges are not reported, since discordance with absolute values may lead to misinterpretation of CBC data. Current Interpretive Data was last revised on 2017. Eosinophil pct 2.4 % [facility] Comment: Interpretive Data Percent cell count reference ranges are not reported, since discordance with absolute values may lead to misinterpretation of CBC data. Current Interpretive Data was last revised on 2017. Basophil pct 0.6 % [facility] Comment: Interpretive Data Percent cell count reference ranges are not reported, since discordance with absolute values may lead to misinterpretation of CBC data. Current Interpretive Data was last revised on 2017. Blood 11/14/2023 9:31 AM RN WELLNESS 11/14/2023 9:32 AM RN WELLNESS us Jose Chairez MD PhD LAB BLOOD ORDERABLES Final Result [facility] One [facility] Department of Laboratories [place], [place] [id number] * (ABNORMAL) Thyroid Function Loving (11/14/2023 9:31 AM RN WELLNESS) TSH 0.01(L) 0.30 - 4.20 mcIUnit/mL [facility] Blood 11/14/2023 9:31 AM RN WELLNESS 11/14/2023 10:58 AM RN WELLNESS Jose Chairez MD PhD LAB BLOOD ORDERABLES Final Result Performing Organization Address City/[facility] Co de Phone Number [facility] Department [place] [address] * Lactate dehydrogenase (LD) (11/14/2023 9:31 AM RN WELLNESS) [facility] Lactate dehydrogenase (LDH) 187 100 - 250 Units/L [facility] Comment:Testing performed by : [address] [address] Blood 11/14/2023 9:31 AM RN WELLNESS 11/14/2023 9:32 AM RN WELLNESS Jose Chairez MD PhD LAB BLOOD ORDERABLES Final Result Performing Organization Address [facility] de Phone Number [facility] Department [place] [address] * CBC with auto differential (11/14/2023 9:31 AM RN WELLNESS) [facility] WBC 9.3 3.8 - 9.9 K/cumm [facility] Comment:Testing performed by : [address] [address] Hgb 12.4 11.9 - 15.5 g/dL [facility] Comment:Testing performed by : [address] [address] Hct 36.8 35.6 - 45.5 % [facility] Comment:Testing performed by : [address] [address] Plt 296 150 - 400 K/cumm [facility] Comment:Testing performed by : [address] [address] MPV 9.2 9.1 - 12.3 fL [facility] RBC 4.21 3.90 - 5.20 M/cumm [facility] MCV 87.4 81.3 - 96.4 fL [facility] MCH 29.5 27.1 - 33.3 pg [facility] MCHC 33.7 32.3 - 35.7 g/dL [facility] RDW CV 12.9 11.1 - 14.9 % [facility] RDW SD 41.2 35.7 - 48.1 fL [facility] NRBC abs 0.00 0.00 - 0.01 K/cumm [facility] Blood 11/14/2023 9:31 AM RN WELLNESS 11/14/2023 9:32 AM RN WELLNESS us Jose Chairez MD PhD LAB BLOOD ORDERABLES Final Result [facility] One [facility] Department [place] [address] * (ABNORMAL) Comprehensive metabolic panel (11/14/2023 9:31 AM RN WELLNESS) Sodium 144 135 - 145 mmol/L [facility] Comment:Testing performed by : [facility], [address] [place] [address] Potassium, pl 3.2(L) 3.3 - 4.9 mmol/L [facility] Chloride 107 97 - 110 mmol/L [facility] CO2 28 22 - 32 mmol/L [facility] Anion gap 9 2 - 15 mmol/L [facility] BUN 15 6 - 25 mg/dL [facility] Creatinine 0.63 0.60 - 1.10 mg/dL [facility] Glucose 121 70 - 199 mg/dL [facility] Comment: Interpretive Data Fasting glucose [...] Calcium 9.8 8.5 - 10.3 mg/dL [facility] Bilirubin, total 0.3 0.1 - 1.2 mg/dL [facility] Protein, pl 7.0 6.5 - 8.5 g/dL [facility] Albumin 4.0 3.5 - 5.0 g/dL [facility] Alk phos 45 40 - 130 Units/L [facility] ALT 16 7 - 45 Units/L [facility] AST 18 10 - 45 Units/L [facility] Blood 11/14/2023 9:31 AM RN WELLNESS 11/14/2023 9:32 AM RN WELLNESS us Jose Chairez MD PhD LAB BLOOD ORDERABLES Final Result [facility] Department [place] [address] documented in this encounter Visit Diagnoses Diagnosis Malignant melanoma of unknown origin (HCC) documented in this encounter Care Teams Donkey Doctor Relationship Specialty Start Date End Date Becky oCnroy NP [address] [place] [address] PCP - General Nurse Practitioner 07/06/23 Jose Chairez MD PhD [address] [facility] [address] [place] [address] Medical Oncologist/Television News Anchor Medical Oncology 08/14/23 Evelin Lofton MD [address] [place] [address] Referring Physician Cardiovascular Disease 08/14/23 documented as of this encounter
--- OUTSIDE RECORDS SUMMARY | 2024-09-17 04:22 | XMS_ITS | Encounter Summary ---
Author Organization [facility] Healthcare Address [address] [place] [address] Care Team Providers Care Drying And Winding Supervisor Name Role Phone Becky Conroy NP Primary Care Provider [phone] Jose Chairez MD PhD Unavailable [phone] Evelin Lofton MD Unavailable [phone] Encounter Details Date Type Department Care Team (Late st Contact Info) Description 11/28/2023 Telephone [facility] Radiology [address] [place] [address] Benjamin Martinez RN Social History Tobacco Use Types Packs/Day [...] on file Legal Sex Female 1:[address] JUSTICE Gender Identity Not on file Sexual Orientation Not on file documented as of this encounter Miscellaneous Notes * Telephone Encounter - Benjamin Martinez RN - 11/28/2023 1:53 PM CDT Preprocedure Phone Call Procedure Time Verified: Yes Arrival Time Verified: Yes Procedure Location Verified: Yes Medical History Reviewed: Yes NPO Status Reinforced: Yes Ride and Caregiver Arranged: Yes Ride Caregiver Provider: daughter Phone Number for Ride/Caregiver: see epic Patient Knows to Bring Current Medications: Yes Patient Knows to Bring CPAP: No Is Patient on Home Ventilator?: No Is Patient on Blood Thinners?: No documented in this encounter Plan of Treatment Not on file documented as of this encounter Visit Diagnoses Not on filedocumented in this encounter Care Teams Drying And Winding Supervisor Relationship Specialty Start Date End Date Becky Conroy HORSERADISH MAKER [address] [place] [address] PCP - General Nurse Practitioner 07/06/23 Jose Chairez MD PhD [address] [facility] [address] [place], [place] [id number] Medical Oncologist/Universal Grinder Operator Medical Oncology 08/14/23 Evelin Lofton MD [address] [place] [address] Referring Physician Cardiovascular Disease 08/14/23 documented as of this encounter
--- OUTSIDE RECORDS SUMMARY | 2024-09-17 04:23 | XMS_ITS | Encounter Summary ---
Author Organization [facility] Address [address] [place] [address] Phone Care Team Providers Care Manufacturing Supervisor 2Nd Shift Name Role Phone Becky Conroy NP Primary Care Provider [phone] Jose Chairez MD PhD Unavailable [phone] Evelin Lofton MD Unavailable [phone] Encounter Details Date Type Department Care Team (Late st Contact Info) Description 10/12/2023 Telephone [facility] Neurosurgery [address] [place] [address] [place] [address] Sukumar Whipple MD [address] [place] [address] Social History Tobacco Use Types Packs/Day Years [...] on file Legal Sex Female 1:54 AM FUNDRAISING SALE REPRESENTATIVE Gender Identity Not on file Sexual Orientation Not on file documented as of this encounter Miscellaneous Notes * Telephone Encounter - Alicia Pugh RN - 10/13/2023 2:44 PM CST LVM with patient, requested a call back to relay below information RAISING SALE REPRESENTATIVE * Telephone Encounter - Sukumar Whipple MD - 10/12/2023 3:46 PM FUNDRAISING SALE REPRESENTATIVE Neurosurgery Note I reviewed patient's CT angiogram of the head and neck from 10/04/2023. This does not show any appreciable vertebral artery or basilar stenosis. Her left vertebral artery small and terminates as a left PICA. The right vertebral artery is dominant. She has about 54-55% stenosis of the right proximalcervical ICA and less than 50% stenosis of the proximal left ICA. She does not have any clear history of stroke or TIA. Her MRI scan that showed diffuse T2 and FLAIR hyperintensities in the periventricular white matter that likely represent chronic small-vessel ischemic disease. There are few othersmall areas of FLAIR hyperintensity that could represent old infarcts but there is no clear historyof this. Given that her stenosis is just slightly over 50% on the right side, at this point I wouldrecommend continued medical management as the risk of recurrent stroke with moderate carotid stenosis is low in women and the risk of perioperative complications are higher in women than men. We willsee her back as needed. RAISING SALE REPRESENTATIVE documented in this encounter Plan of Treatment Not on file documented as of this encounter Visit Diagnoses Not on filedocumented in this encounter Care Teams Manufacturing Supervisor 2Nd Shift Relationship Specialty Start Date End Date Becky Conroy NP [address] [place] [address] PCP - General Nurse Practitioner 07/06/23 Jose Chairez MD PhD [address] [facility] [address] [place] [address] Medical Oncologist/Wireless Team Member Medical Oncology 08/14/23 Evelin Lofton MD [address] [place] [address] Referring Physician Cardiovascular Disease 08/14/23 documented as of this encounter
--- OUTSIDE RECORDS SUMMARY | 2024-09-17 04:23 | XMS_ITS | Encounter Summary ---
Author Organization [facility] Address [address] [place] [address] Phone Care Team Providers Care Manager Of Enterprise Name Role Phone Becky Conroy NP Primary Care Provider [phone] Jose Chairez MD PhD Unavailable [phone] Evelin Lofton MD Unavailable [phone] Reason for Visit * Reason Comments Immunotherapy * Episode Based Medications (Routine) - Closed Specialty Diagnoses / Procedures Referred By Contac t Referred To Contact Oncology Diagnoses Malignant melanoma of unknown origin (HCC) Jose Chairez MD PhD [address] [facility] [address] [place] [address] Phone: tel: fax: [facility] [address] [address] Phone: tel: fax: Referral ID Status Reason Start Date Expiration Date Visits Re quested Visits Authorized [id number] Closed 05/27/2024 09/04/2024 1 30 Encounter Details Date Type Department Care Team (Late st Contact Info) Description 08/29/2023 10:00 AM STAMPS OR COINS SALESPERSON Infusion [facility] Oncology [address] [place] [id number] Malignant melanoma of unknown origin (HCC) (Primary Dx) Social History Tobacco Use Types Packs/Day Years Used Date Smoking Tobacco: Former Cigarettes Smokeless Tobacco: Never AUDIT-C Answer Date Recorded Q1: How often do you have a drink containing alcohol? Never 08/24/2023 Q2: How many drinks containi ng alcohol do you have on a typical day when you are drinking? Patient does not drink Frequency of Binge Drinking Not on file 08/11 Personal Safety Answer Date Recorded Getting School Help Needed Not on file 08/24 Comments No Sex and Gender Information Value Date Recorded Sex Assigned at Not on file Legal Sex Female 1:54 AM STAMPS OR COINS SALESPERSON Gender Identity Not on file Sexual Orientation Not on file documented as of this encounter Nursing Notes * rEa Mata, RN - 08/29/2023 10:00 AM CST Oncology Nursing Note [facility] Magui Baker is a 78 y.o. female who presents for treatment cycle 2, day 1 of Pembrolizumab. Pre-treatment Nursing Assessment Nursing Assessment LOC: Alert, Awake Any falls since your last visit?: No [...] No Skin Condition/Temp: Warm, Dry, No swelling Swelling: No Additional Notes: Patient saw MD today. BP: 159/71 Pulse: 71 Resp: 16 SpO2: 96 % Weight: 68.2 kg (150 lb 6.4 oz) Pain Score: 0 - No pain [...] Ambulatory Accompanied by: Family Discharged To: Home PS OR COINS SALESPERSON documented in this encounter Plan of Treatment [...] mL/hr, Administer over 30 Minutes, Once, On Mon08/29/23 at 1000, For 1 dose, Use 0.2-5 micron filter, low-sorbing, low protein binding.Indications:Malignant melanoma of unknown origin (HCC) New Bag 08/29/2023 9:45 AM STAMPS OR COINS SALESPERSON 200 mg 216 mL/hr documented in this encounter Orders Medications Ordered That Stalin ht Not Have Been Administered Count Last Ordered Date First Ordered Date pembrolizumab (KEYTRUDA) 200 mg in sodium chloride 0.9% 100 mL IVPB 1 08/29/2023 Nursing Count Last Ordered Date First Orde red Date ONCBCN TREATMENT PARAMETERS 3 1 08/29/2023 Appointment Requests Count Last Ordered Date Fi rst Ordered Date ONCBCN RETURN CHEMO 1.5HRS 1 08/29/2023 documented in this encounter Care Teams Manager Of Enterprise Relationship Specialty Start Date End Date Becky Conroy NP [address] [place] [address] PCP - General Nurse Practitioner 07/06/23 Jose Chairez MD PhD [address] [facility] [address] [place] [address] Medical Oncologist/Packaging Line Attendant Medical Oncology 08/14/23 Evelin Lofton MD [address] [place] [address] Referring Physician Cardiovascular Disease 08/14/23 documented as of this encounter
--- OUTSIDE RECORDS SUMMARY | 2024-09-17 04:23 | XMS_ITS | Encounter Summary ---
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) Procedures PET/CT FDG Skull to Thigh Landon Davis MD [address] [facility] [id number] [place] [address] Phone: tel: fax: [address] [address] Referral ID Status Reason Start Date Expiration Date Visits Re quested Visits Authorized [id number] Closed 08/14/2023 09/12/2024 2 1 E MOLDER Reason for Visit * MRI/CAT/PET Scan (Routine) - Closed Specialty Diagnoses / Procedures [facility] Referred To Contact Radiology Diagnoses Malignant melanoma of unknown origin (HCC) 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) Procedures PET/CT FDG Skull to Thigh Landon Davis MD [address] [facility] [id number] [place] [address] Phone: tel: fax: [facility] [address] [place] [address] Referral ID Status Reason Start Date Expiration Date Visits Re quested Visits Authorized [id number] Closed 08/14/2023 09/12/2024 2 1 Encounter Details Date Type Department Care Team (Latest Contact Info) Description 10/04/2023 11:58 AM PLATE MOLDER - 10/04/2023 11:59 PM [facility] Hospital Encounter [facility] Imaging [address] [place] [address] Malignant melanoma of unknown origin (HCC); 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 Never 09/13/2023 Q2: How many drinks containi ng alcohol do you have on a typical day when you are drinking? Patient does not drink Q3: How often do you have si x or more drinks on one occasion? Never 09/13/2023 Personal Safety Answer Date Recorded Getting School Help Needed Not on file 08/24 Comments No Sex and Gender Information Value Date Recorded Sex Assigned at Not on file Legal Sex Female 1:54 AM PLATE MOLDER Gender Identity Not on file Sexual Orientation Not on file documented as of this encounter Medications at Time of Discharge clopidogreL (PLAVIX) 75 mg tabletIndications:My ocardial Reinfarction Prevention,Thrombosi s Prevention after PCI,1 cardiac stent Take 1 tablet (75 mg total) by mouth every morning 06/26/2023 enalapril (VASOTEC) 10 mg tabletIndications:hy pertension Take 1 tablet (10 mg total) by mouth every morning ergocalciferol, vitamin D2, 10 mcg (400 unit) tabletIndications:Pr evention of Vitamin D Deficiency Take 1 tablet by mouth every morning 10/09/[address] (NexIUM) 40 mg capsuleIndications:a danie reflux Take 1 capsule (40 mg total) by mouth as needed 05/08/2008 furosemide (LASIX) 20 mg tabletIndications:Ed natasha Take 1 tablet (20 mg total) by mouth as needed hydroCHLOROthiazide (HYDRODIURIL) 25 mg tabletIndications:Ed natasha,hypertension Take 1 tablet (25 mg total) by mouth every morning meloxicam (MOBIC) 7.5 mg tablet Take 1 tablet (7.5 mg total) by mouth as needed for pain metoprolol XL (TOPROL-XL) 50 mg extended release tabletIndications:hy pertension Take 1 tablet (50 mg total) by mouth every morning multivitamin tabletIndications:Vi tamin Deficiency Prevention Take 1 tablet by mouth every morning mupirocin (BACTROBAN) 2 % ointmentIndications: Minor Bacterial Skin Infections Apply topically as needed 08/15/2023 omega-3 fatty acids 500 mg capsuleIndications:s upplement Take 1 tablet by mouth every morning 12/24/2014 potassium chloride ER 10 mEq CR tabletIndications:hy pokalemia prevention Take 1 tablet/capsule (10 mEq total) by mouth every morning rosuvastatin (CRESTOR) 10 mg tabletIndications:hy perlipidemia Take 0.5 tablets (5 mg total) by mouth every morning 0.5 tablet zinc gluconate 50 mg tabletIndications:de la garza pplement Take 1 tablet (50 mg total) by mouth every morning acetaminophen 500 mg capsuleIndications:P ain Take 2 capsules (1,000 mg total) by mouth every 6 (six) hours for 14 days 30 tablet 10/12/2023 4 ondansetron ODT (ZOFRAN-ODT) 4 mg disintegrating tablet Take 1 tablet (4 mg total) by mouth every 4 (four) hours as needed for nausea or vomiting for up to 14 days 20 tablet 10/12/2023 4 cyclobenzaprine (FLEXERIL) 5 mg tablet Take 1 tablet (5 mg total) by mouth 3 (three) times a day as needed for muscle spasms for up to 14 days 30 tablet 10/12/2023 4 gabapentin (NEURONTIN) 100 mg capsule Take 2 capsules (200 mg total) by mouth 3 (three) times a day for 14 days 84 capsule 10/12/2023 4 polyethylene glycol (MIRALAX) 17 gram/dose bulk powderIndications:co nstipation Take 17 g by mouth daily for 14 days 238 g 10/12/2023 4 prochlorperazine (Compazine) 10 mg tabletIndications:Ma lignant melanoma of unknown origin (HCC) Take 1 tablet (10 mg total) by mouth every 6 (six) hours as needed for nausea or vomiting 30 tablet 3 08/07/2023 4 senna-docusate (PERICOLACE) 8.6-50 mg Take 1 tablet by mouth daily for 14 days 14 tablet 10/12/2023 4 triamcinolone (KENALOG) 0.1 % cream Apply [...] THIGH Schedule Routine, Read Routine (OP Routine) 10/04/2023 1:52 PM PLATE MOLDER Malignant melanoma of unknown origin (HCC) 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 Favorable treatment response evidenced by marked decreased in size and metabolic activity of left level 1 axillary lymph node with residual moderately FDG avid left axillary lymph node. ??Essentially unchanged mildly hypermetabolic subcentimeter level 2 lymph node. 2. Unchanged mildly FDG avid right middle lobe pulmonary nodule remains indeterminate and attention on follow-up study is recommended. 3. No additional hypermetabolic site of disease elsewhere in the body. Dictated by: Gisselle Khanna M.D. The radiology attending physician has personally reviewed this study, and had reviewed and/or edited this written report and agrees with it. Electronically signed by: Lorie Gil MD, Ph.D Narrative 10/04/2023 4:02 PM PLATE MOLDER EXAMINATION: TUMOR FDG-PET/CT IMAGING DATE OF STUDY: ??10/04/2023 SCANNER: RADIOPHARMACEUTICAL: 12.92 mCi F-18 Fluorodeoxyglucose (FDG) i.v. Injection site: Left antecubital vein HISTORY: 78-year-old woman with metastatic malignant melanoma of unknown primary diagnosed on 06/30/2023 via left axillary biopsy. The patient is on Pembrolizumab started on 09/19/2023. ??The study is requested for treatment monitoring during therapy. Subsequent treatment strategy. TECHNIQUE: ?? The patient's fasting blood glucose level, measured by glucometer before injection of FDG, was 102 mg/dL. ?? After intravenous administration of FDG, noncontrast CT images were obtained for attenuation correction and for fusion with emission PET images to allow for anatomical localization of PET findings. Emission PET images were then obtained. ??The study was interpreted on the [employer] workstation. The mean liver SUV (reported for senior quality analyst purposes) is 2.7. ?? The total scanned area was skull vertex to the knees. ??Images of the body were obtained starting 61 minutes after injection of tracer. COMPARISON: Prior FDG PET/CT scan on 07/31/2023 DESCRIPTORS OF LESION FDG AVIDITY: Minimal: ? <= blood pool ? Mild: ?> blood pool and <= liver ? Moderate: ?? > liver and <= 2x SUVmax liver ? Moderate to marked: ?? >2x SUVmax liver and <= 3x SUVmax liver ? Marked: ? > 3x SUVmax liver ? FINDINGS: Interval decrease in size and metabolic activity of left axillary lymph node now measuring 1.6 x 2.3 cm with a maximum SUV of 5.2 on axial image 114, previously 5.3 x 4.4 cm with maximum SUV of 18.2. Redemonstration of left level 2 subcentimeter left axillary lymph node with a maximum SUV of 2.2. ?? Redemonstration of essentially unchanged mildly hypermetabolic right middle lobe pulmonary nodule. ?? Redemonstration of degenerative FDG uptake adjacent to the lateral femoral condyle on axial image 385. ?? Additional CT findings: Left maxillary sinus retention cyst. Bilateral coronary and carotid calcification. ??Several low-attenuation bilateral thyroid nodules containing few foci of calcification. ??Right hilar and splenic old granulomatous disease. Mild calcified plaques along the aortic arch, descending aorta, and its branches. ??Cholecystectomy. ??Postsurgical changes of anterior abdominal hernia repair. ??Hysterectomy. Procedure Note Lorie Larios MD PhD - 10/04/2023 EXAMINATION: TUMOR FDG-PET/CT IMAGING DATE OF STUDY: 10/04/2023 SCANNER: RADIOPHARMACEUTICAL: 12.92 mCi F-18 Fluorodeoxyglucose (FDG) i.v. Injection site: Left antecubital vein HISTORY: 78-year-old woman with metastatic malignant melanoma of unknown primary diagnosed on 06/30/2023 via left axillary biopsy. The patient is on Pembrolizumab started on 09/19/2023. The study is requested for treatment monitoring during therapy. Subsequent treatment strategy. TECHNIQUE: The patient's fasting blood glucose level, measured by glucometer before injection of FDG, was 102 mg/dL. After intravenous administration of FDG, noncontrast CT images were obtained for attenuation correction and for fusion with emission PET images to allow for anatomical localization of PET findings. Emission PET images were then obtained. The study was interpreted on the [employer] workstation. The mean liver SUV (reported for senior quality analyst purposes) is 2.7. The total scanned area was skull vertex to the knees. Images of the body were obtained starting 61 minutes after injection of tracer. COMPARISON: Prior FDG PET/CT scan on 07/31/2023 DESCRIPTORS OF LESION FDG AVIDITY: Minimal: <= blood pool Mild: > blood pool and <= liver Moderate: > liver and <= 2x SUVmax liver Moderate to marked: >2x SUVmax liver and <= 3x SUVmax liver Marked: > 3x SUVmax liver FINDINGS: Interval decrease in size and metabolic activity of left axillary lymph node now measuring 1.6 x 2.3 cm with a maximum SUV of 5.2 on axial image 114, previously 5.3 x 4.4 cm with maximum SUV of 18.2. Redemonstration of left level 2 subcentimeter left axillary lymph node with a maximum SUV of 2.2. Redemonstration of essentially unchanged mildly hypermetabolic right middle lobe pulmonary nodule. Redemonstration of degenerative FDG uptake adjacent to the lateral femoral condyle on axial image 385. Additional CT findings: Left maxillary sinus retention cyst. Bilateral coronary and carotid calcification. Several low-attenuation bilateral thyroid nodules containing few foci of calcification. Right hilar and splenic old granulomatous disease. Mild calcified plaques along the aortic arch, descending aorta, and its branches. Cholecystectomy. Postsurgical changes of anterior abdominal hernia repair. Hysterectomy. IMPRESSION: 1. Favorable treatment response evidenced by marked decreased in size and metabolic activity of left level 1 axillary lymph node with residual moderately FDG avid left axillary lymph node. Essentially unchanged mildly hypermetabolic subcentimeter level 2 lymph node. 2. Unchanged mildly FDG avid right middle lobe pulmonary nodule remains indeterminate and attention on follow-up study is recommended. 3. No additional hypermetabolic site of disease elsewhere in the body. Dictated by: Gisselle Khanna M.D. The radiology attending physician has personally reviewed this study, and had reviewed and/or edited this written report and agrees with it. 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) documented in this encounter Administered Medications Inactive Administered Medications - up to 3 most recent administrations Medication Order MAR Action Action Date Dose Rate Site fludeoxyglucose F-18 (FDG) injection 12.92 millicurie 12.92 millicurie, intravenous, Once in imaging, radiopharmaceutical , Starting on Mon10/04/23 at 1222, For 1 dose Given 10/04/2023 12:22 PM PLATE MOLDER 12.92 millicuries Left Antecubital documented in this encounter Orders Medications Ordered That Stalin ht Not Have Been Administered Count Last Ordered Date First Ordered Date fludeoxyglucose F-18 (FDG) i njection 12.92 millicurie 1 10/04/2023 documented in this encounter Care Teams See Wheeler Relationship Specialty Start Date End Date Becky Conroy SIENE MAKER [address] [place] [address] PCP - General Nurse Practitioner 07/06/23 Jose Chairez MD PhD [address] [facility] [address] [place], [place] [id number] Medical Oncologist/Vending Mechanic Medical Oncology 08/14/23 Evelin Lofton MD [address] [place] [address] Referring Physician Cardiovascular Disease 08/14/23 documented as of this encounter
--- OUTSIDE RECORDS SUMMARY | 2024-09-17 04:23 | XMS_ITS | Encounter Summary ---
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 Installer Name Role Phone Becky Conroy NP Primary Care Provider [phone] Jose Chairez MD PhD Unavailable [phone] Evelin Lofton MD Unavailable [phone] Reason for Visit * Auth/Cert (Routine) Specialty Diagnoses / Procedures Referred By Korey harkins Referred To Contact Diagnoses Metastatic melanoma (HCC) Metastatic melanoma (HCC) [C43.9] Procedures IL BX/EXC LYMPH NODE OPEN DEEP AXILLARY NODE LEFT AXILLARY LYMPH NODE DISSECTION Referral ID Status Reason Start Date Expiration Date Visits Re quested Visits Authorized [id number] 1 1 Encounter Details Date Type Department Care Team (Late st Contact Info) Description 10/11/2023 8:23 AM BULK SUGAR HANDLER Anesthesia Event [facility] Operating Room [address] [place] [address] Josue Rosales MD PhD [address] [place] [address] Marizol Blancas NP [address] [facility] [id number] [place] [address] Anesthesia Record Procedure Summary Procedure Name Responsible Anesthesiologist Anesthesia Start Time Anesthesia Stop Time LEFT AXILLARY LYMPH NODE DISSECTION (Left: Axilla) Josue Rosales MD PhD 10/11/23 0823 10/11/23 1000 Events Date Time Event Comment 10/11/2023 0619 In Preop 0823 An Start 0827 An Start Data 0827 In Room 0830 0837 An Induction The patient was reevaluated immediately before moderate or deep sedation use and before anesthesia induction. 0840 An Intubation 0845 Anesthesia Ready 0852 Incision Start 0852 Proc Start 0929 Local injected by surgeon 0945 Proc Fin 0948 An Extubation 0952 an stop data 0952 Out of Room 1000 Handoff to RN I completed my handoff to the receiving nurse during which we: 1. Patient identified 2. Responsible provider identified 3. Pertinent medical history reviewed 4. Procedure type and surgical course discussed 5. Intraoperative anesthetic management and any significant issues discussed 6. Expectations and concerns for postop period discussed 7. Questions solicited from receiving nurse 8. Patient disposition at the time of handoff: No value filed. 1000 An Stop Meds Name Total lidocaine (cardiac) syringe 2 % 60 mg propofol 160 mg fentaNYL 75 mcg succinylcholine 80 mg phenylephrine 100 mcg/mL 400 mcg ondansetron PF (ZOFRAN) 2 mg/mL injectio n 4 mg ceFAZolin (ANCEF) 2,000 mg/20 mL in ster ile water (premix) 2,000 mg 2,000 mg phenylephrine infusion (100 mcg/mL) 3.44 mg Lactated Ringer's (LR) infusion 300 mL * Agents Name O2% N2O O2 Air Sevoflurane Inspired Sevoflurane * Blood No blood administrations on file. Lines, Drains, and Airways Type Details Placement Removal Peripheral IV Placement Date: 10/11/23; Placement Time: 0642; Catheter Size: 20 G; Orientation: Posterior, Right; Location: Hand; Site Prep: Chlorhexidine; Inserted by: MARGAUX Hoffman; Insertion Attempts: 1; Patient Tolerance: Tolerated well; Removal Date: 10/12/23; Removal Time: 1110; Removal Reason: Discharge 10/11/23 0642 by Vicky Stephenson RN 10/12/23 1110 by Elly Infante RN ETT Placement Date: 10/11/23; Placement Time: 0857 (created via procedure documentation); Mask Ventilation: 0; Technique: Direct laryngoscopy; Type: ETT - single; Single Lumen Tube Size: 7.5 mm; Cuffed: Yes; Laryngoscope: Justin; Blade Size: 3; Location: Oral; Grade View: Grade IIa; Insertion Attempts: 1; Placement Verification: Auscultation, Capnometry; Airway Comment: Dentition as pre-op; no complications ; Removal Date: 10/11/23; Removal Time: 0910/11/23 0857 by Chio Mills CRNA 10/11/23 0948 by Chio Mills CRNA RETIRED Surgical Site 10/11/23; 0910; Anterior, Left; Axilla; 08/13/24 (Retired LDA, Removed/Completed by [facility] [place] with LDA Utility); 1213 (Retired LDA, Removed/Completed by [facility] [place] with LDA Utility) 10/11/23 0910 by Charo Garcia 08/13/24 1213 by Discharge Provider, Automatic Closed/Suction/Open Drain 10/11/23; 0913; No; 1; Left; Other (Comment) (Left axilla); Bulb; 19 Fr.; Tube change 10/11/23 0913 by hCaro Garcia 11/10/23 0955 by Jadyn Saxena RN RETIRED Surgical Site 10/11/23; 0920; Le ft; Other (Comment); Dressed with dermabond, incision edges approximated; 08/13/24 (Retired LDA, Removed/Completed by [facility] [place] with LDA Utility); 1213 (Retired LDA, Removed/Completed by [facility] with LDA Utility) 10/11/23 0920 by Charo Garcia 08/13/24 1213 by Discharge Provider, Automatic documented in this encounter Social History Tobacco Use Types Packs/Day Years [...] on file Legal Sex Female 1:54 AM BULK SUGAR HANDLER Gender Identity Not on file Sexual Orientation Not on file documented as of this encounter OR Notes * Anesthesia Postprocedure Evaluation - Meghan Hernandez MD - 10/11/2023 10:29 AM CST Patient: Magui Baker Procedure Summary Date: 10/11/23 Room / Location: [facility] OR POD 5 ROOM 226 / [facility] OR POD 5 Anesthesia Start: 822 Anesthesia Stop: 1000 Procedure: LEFT AXILLARY LYMPH NODE DISSECTION (Left: Axilla) Diagnosis: Metastatic melanoma (HCC) (Metastatic melanoma (HCC) [C43.9]) Surgeons: Landon Davis MD Responsible Provider: Josue Rosales MD PhD Anesthesia Type: general ASA Status: 2 Anesthesia Type: general Last vitals BP 138/58 Pulse 64 Temp 36.2 ??C (97.2 ??F) (Temporal) Resp 20 SpO2 100% Anesthesia Post Evaluation Patient location during evaluation: PACU Patient participation: complete - patient participated Level of consciousness: fully awake Pain score: 0 Pain management: adequate Airway patency: adequate Evidence of recall: no Cardiovascular status: acceptable Respiratory status: acceptable and room air Hydration status: acceptable Pt is: normothermic Nausea/Vomiting status: none No notable events documented. Cosigned by Zak Barajas MD at 10/11/2023 10:30 AM BULK SUGAR HANDLER SUGAR HANDLER SUGAR HANDLER * Anesthesia Procedure Notes - Chio Mills - 10/11/2023 8:56 AM CSTAssociated Order(s): Airway Airway Patient location: OR Urgency: elective Indications for airway management: anesthesia and airway protection Difficult airway: no Staff: Supervising provider: Josue Rosales MD PhD Placed by: Other staff: Chio Mills Emergent airway documentation: Risks and benefits discussed: yes Consent obtained: yes Consent given by: patient Airway prep: Preoxygenated: yes Patient position: sniffing Mask difficulty assessment: 0 - not attempted Spontaneous ventilation during airway: absent Sedation level during airway: GA Final airway details: Final airway type: endotracheal airway Tube type: ETT ETT size: 7.5 mm Cuffed: yes Technique used for successful ETT placement: direct laryngoscopy Devices/Methods used in placement: stylet and cricoid pressure Insertion site: oral Blade type: Justin Blade size: 3 Cormack-Lehane (direct): grade IIa - partial view of glottis Cuff inflated with: air ETT to teeth: 22 cm Placement verified by: auscultation and CO2 detection Airway secured with: silk tape Number of attempts: 1 Additional comments: Dentition as pre-op; no complications SUGAR HANDLER * Anesthesia Preprocedure Evaluation - Josue Rosales MD PhD - 10/04/2023 9:42 AM CST Images from the original note were not included. [facility] Preoperative [facility] Planning Preoperative Evaluation Record Evaluation type/location: TPAP from [facility] Planned procedure site: [facility] (Pods 2/3/5/[employer]) Date: 10/04/23 NOTE: This note represents a preoperative evaluation initiated via telephone interview. NO PHYSICALEXAM was performed at the time of initial assessment. A physical exam may be added to this note anddocumented below. Anesthesia Evaluation Magui Baker is a 78 y.o. 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 Neurological Pertinent negatives: neuromuscular disease; CVA/stroke and TIA Comments: 08/24/2023 Dr. Kamara AND PLAN: Ms. Baker is an 78-year-old female with incidentally discovered irregularity and stenosis of thevertebrobasilar system. She has not had a history of transient ischemic attack or stroke. We discussed that she does not require any intervention for asymptomatic intracranial atherosclerosis. I would recommend a CT angiogram, so we have a baseline evaluation of her vasculature. She is already on antiplatelet agents given her history of myocardial infarction. We also discussed the importance of maintaining blood pressure, cholesterol, and blood sugar within normal ranges. She states that she has been working with her PCP on this since the myocardial infarction, and things are under good control now. I will see her as needed. Cardiovascular + Hypertension + Hyperlipidemia (on statin) + CAD + SC Number of SC's: 1. Date of last SC: 2002. + Unknown stent(s) type - Prior stent(s) date: 2002. + Systolic or diastolic dysfunction w/o CHF Diastolic function: stage I - impaired relaxation LVEF:60-70%. Pertinent negatives: CABG ; valvular heart disease; atrial fibrillation; pacemaker/ICD; DVT/PE; negative for CHF; drug-eluting stent(s) and bare metal stent(s) Comments: Dr. Otto 06/2023 last visit [facility] Respiratory Pertinent negatives: COPD; asthma; sleep apnea (OLYA); pulmonary hypertension; no O2 use outside thehospital; non-smoker and no tracheostomy Hepatic / Heme Pertinent negatives: liver disease Renal / + Renal disease (denies CKD noted on chart Cr cl 40.8 probable age related CKD) - CKD Pertinent negatives: dialysis Endocrine / Other + Cancer history (Seeing Med onc)- metastatic cancer, current cancer and s/p chemo. Cancer type: melanoma s/p neoadjuvant pembro last dose 09/19/2023. Pertinent negatives: diabetes mellitus; thyroid disease; transplanted organ and infectious disease Comments: Dr. Bates oncologist Assessment/Plan Magui Baker is 78 y.o. woman with metastatic melanoma presenting for ongoing recommendations for therapy. Tempus with NRAS mutation. Melanoma - biopsy confirmed L axillary met. Continue with neoadjuvant pembro, cycle 3 today. Restaging PET prior to planned surgery with Dr. Davis 10/11. Resume pembro post surgery 2-3 weeks later. Monitor small lung nodule on subsequent scans. MRI brain - no evidence of melanoma mets, which is great news. 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 CTAreport uploaded and NSGY will review per patient Will also have pre-op eval if plans for surgery. ROV 2 weeks to review PET results. All questions answered. Reiterated that I remain available for additional questions that may arise going forward. 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 female who is being evaluated prior to undergoing a low cardiac risk surgery. Revised Cardiac Risk Index factors are (ischemic heart disease) fora total RCRI of 1 out of 6. Functional capacity is 4-6 METs. Obstructive sleep apnea (OLYA) screening status is STOP-Bang=2 suggesting low risk for OLYA. This assessment was performed via telephone. Therefore the physical exam has been deferred to the day of surgery team. The patient was provided with preoperative instructions for their medications. The patient was informed that instructions regarding stopping any therapeutic antiplatelet or anticoagulant medications will be provided by the surgeon's office. Patient instructions were provided by telephone and electronically sent via [employer]. Patient verbalized understanding of instructions. Blood bank needs for day of procedure: No type and screen needed Pending labs/tests include: None Reviewed CBC, CMP 09/19/2023 without significant values noted The patient is on clopidogrel therapy and has a history of PCI and CAD. Because the risk of increased bleeding likely outweighs the benefits of this therapy perioperatively, we recommend discontinuing clopidogrel for 7 days prior to the procedure and resuming therapy when feasible in the postoperative period. Plan B [employer] staff message sent to surgeon's office. Please call the CPAP clinic ([phone]) withany questions. Preoperative evaluation performed by Marizol Blancas NP on 10/04/23 at 9:51 AM TPAP assessment complete . Patient Active Problem List Diagnosis Date Noted Metastatic melanoma (HCC) 08/31/2023 Pain in right foot 08/24/2023 Benign essential HTN 07/18/2023 Dyslipidemia 07/18/2023 Malignant melanoma of unknown origin (HCC) 07/18/2023 Melanoma of axilla (HCC) 07/18/2023 Primary osteoarthritis of both knees 09/28/2016 Atherosclerosis of quileute coronary artery of quileute heart without angina pectoris 03/04/2016 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 Past Medical History: Diagnosis Date Melanoma (HCC) Motion sickness Old myocardial infarction Past myocardial infarction - (Added by DELIA Conv) Personal history of other diseases of the circulatory system History of hypertension - (Added by DELIA Kinney) Past Surgical History: Procedure Laterality Date APPENDECTOMY As a child CARDIAC STENT PLACEMENT 2002 1 stent placed CHOLECYSTECTOMY 2002 COLON SURGERY 2002 COLONOSCOPY 2007 HYSTERECTOMY 1987 INCONTINENCE SURGERY 07/2008 vaginal sling TONSILLECTOMY 1972 OB History No obstetric history on file. No Known Allergies Med List Status: Nurse Complete Set By: Rosy Curry RN at 09/13/2023 9:45 AM Taking? Last Dose Start Date End Date Provider clopidogreL (PLAVIX) 75 mg tablet 09/13/2023 06/26/23 -- ProviderViridiana MD enalapril (VASOTEC) 10 mg tablet 09/13/2023 -- -- ProviderViridiana MD ergocalciferol, vitamin D2, 10 mcg (400 unit) tablet 09/13/2023 10/09/09 -- Viridiana Ochoa MD esomeprazole DR (NexIUM) 40 mg capsule Past Month 05/08/08 -- Viridiana Ochoa MD furosemide (LASIX) 20 mg tablet Past Month -- -- ProviderViridiana MD hydroCHLOROthiazide (HYDRODIURIL) 25 mg tablet 09/13/2023 -- -- Viridiana Ochoa MD meloxicam (MOBIC) 7.5 mg tablet Past Month -- -- ProviderViridiana MD metoprolol XL (TOPROL-XL) 50 mg extended release tablet 09/13/2023 -- -- Viridiana Ochoa MD multivitamin tablet 09/13/2023 -- -- Viridiana Ochoa MD mupirocin (BACTROBAN) 2 % ointment Past Month 08/15/23 -- Viridiana Ochoa MD omega-3 fatty acids 500 mg capsule 09/13/2023 12/24/14 -- Viridiana Ochoa MD potassium chloride ER 10 mEq CR tablet 09/13/2023 -- -- Viridiana Ochoa MD prochlorperazine (Compazine) 10 mg tablet Past Month 08/07/23 -- Jose Chairez MD PhD Take 1 tablet (10 mg total) by mouth every 6 (six) hours as needed for nausea or vomiting Patient taking differently: Take 1 tablet (10 mg total) by mouth as needed for nausea or vomiting rosuvastatin (CRESTOR) 10 mg tablet 09/13/2023 -- -- Viridiana Ochoa MD triamcinolone (KENALOG) 0.1 % cream 09/13/2023 08/29/23 -- Jose Chairez MD PhD Apply topically 2 (two) times a day Patient taking differently: Apply topically as needed for irritation zinc gluconate 50 mg tablet 09/13/2023 -- -- Viridiana Ochoa MD No current facility-administered medications for this encounter. Current Outpatient Medications: clopidogreL (PLAVIX) 75 mg tablet enalapril (VASOTEC) 10 mg tablet ergocalciferol, vitamin D2, 10 mcg (400 unit) tablet esomeprazole DR (NexIUM) 40 mg capsule furosemide (LASIX) 20 mg tablet hydroCHLOROthiazide (HYDRODIURIL) 25 mg tablet meloxicam (MOBIC) 7.5 mg tablet metoprolol XL (TOPROL-XL) 50 mg extended release tablet multivitamin tablet mupirocin (BACTROBAN) 2 % ointment omega-3 fatty acids 500 mg capsule potassium chloride ER 10 mEq CR tablet prochlorperazine (Compazine) 10 mg tablet rosuvastatin (CRESTOR) 10 mg tablet triamcinolone (KENALOG) 0.1 % cream zinc gluconate 50 mg tablet Social History Tobacco Use Smoking Status Former Packs/day: .5 Types: Cigarettes Start date: 1979 Quit date: 1988 Years since quittin.0 Passive exposure: Never Smokeless Tobacco Never Alcohol Use: Not At Risk (09/13/2023) AUDIT-C Frequency of Alcohol Consumption: Never Average Number of Drinks: Patient does not drink Frequency of Binge Drinking: Never Substance and Sexual Activity Drug Use Never Family History Problem Relation Age of Onset Hypertension Mother Stroke Mother Stroke Father Stroke Sister Stroke Brother Relevant diagnostics: ECG(s): N/A Echocardiogram(s): 03/05/2021 TTE SUMMARY: ++++++++++++++++++++++++++++++++++++ The calculated ejection fraction is 70%. Left ventricular diastolic function is abnormal (grade 1 - impaired relaxation). The right ventricular size is normal. Right ventricular systolic function is normal. No evidence of pericardial effusion. Trace mitral regurgitation. A trace of tricuspid regurgitation. Stress test(s): N/A Cardiac catheterization(s): N/A PFT(s): N/A Vascular studies: N/A Other: 09/20/[address] IMPRESSION: No MR evidence of intracranial metastases. 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 Recommend further evaluation with CTA/MRA. Degenerative changes of the bilateral temporomandibular joints, with acute enhancing synovitis on the right. There were no vitals filed for this visit. PT: 09/19/2023: 11.5 sec INR: 09/19/2023: 1.01 APTT: No results found for requested labs within last 30 days. Hgb A1C: No results found for requested labs within last 30 days. CBC RBC: 09/19/2023: 4.61 M/cumm RDW: No results found for requested labs within last 30 days. MCHC: 09/19/2023: 32.4 g/dL MCH: 09/19/2023: 28.9 pg MCV: 09/19/2023: 88.9 fL Hct: 09/19/2023: 41.0 % Hgb: 09/19/2023: 13.3 g/dL WBC: 09/19/2023: 7.9 K/cumm MPV: 09/19/2023: 9.8 fL Platelets: 09/19/2023: 236 K/cumm RDW CV: 09/19/2023: 13.1 % RDW Sd: 09/19/2023: 43.0 fL BMP Glucose: 09/19/2023: 107 mg/dL Calcium: 09/19/2023: 10.4 mg/dL (H) Sodium: 09/19/2023: 142 mmol/L Potassium: 09/19/2023: 3.8 mmol/L CO2: 09/19/2023: 29 mmol/L Chloride: 09/19/2023: 105 mmol/L BUN: 09/19/2023: 22 mg/dL Creatinine: 09/19/2023: 0.87 mg/dL Sandrita index score: 95 DOS Physical Exam Medical history, medications, and allergies reviewed. Attestation: This PAT evaluation 10/04/2023. Airway Exam: Mallampati: II Cervical ROM: FROM TM distance: normal Upper lip bite test class: 2 Cardiovascular Exam: Rate: regular Rhythm: regular Pulmonary Exam: LCTA EENT Exam: trachea midline Dental Exam: Upper dentures Anesthesia Plan ASA 2 My patient is approved for the Anesthesia Controlled Medication protocol when under care of a PHARMACY INTAKE COORDINATOR Planned anesthesia: General Team communication plan: oral ET tube Induction: Induction: intravenous. Postoperative Plan: Postoperative administration opioids intended. No postoperative mechanical ventilation intended. Patient's planned disposition post procedure is Floor. Informed Consent: Discussed plan with PHARMACY INTAKE COORDINATOR. Anesthesia plan and risks discussed with patient and daughter. Consent and Attending signature: I and/or my designee have discussed the anesthesia plan, benefits, possible alternatives, parental presence at time of induction (if indicated), and clinically relevant risks that may include dental injury, unintentional awareness, and/or other complications. The patient and/or parent/legal guardian understand, and agree to proceed. All questions answered. SUGAR HANDLER SUGAR HANDLER SUGAR HANDLER documented in this encounter Plan of Treatment Not on file documented as of this encounter Procedures Procedure Name Priority Date/Time Associated Diagnosis Comments IL AN PROCEDURE PLACEHOLDER Routine 10/11/2023 8:56 AM BULK SUGAR HANDLER IL AN ELECTIVE ENDOTRACHEAL AIRWAY Routine 10/11/2023 8:56 AM BULK SUGAR HANDLER documented in this encounter Results * IL AN ELECTIVE ENDOTRACHEAL AIRWAY, IL AN PROCEDURE PLACEHOLDER (10/11/2023 8:56 AM BULK SUGAR HANDLER) Narrative Chio Mills - 10/11/2023 8:56 AM BULK SUGAR HANDLER Chio Mills ? 10/11/2023 ??8:57 AM Airway Patient location: OR Urgency: elective Indications for airway management: anesthesia and airway protection Difficult airway: no Staff: Supervising provider: Josue Rosales MD PhD Placed by: Other staff: Chio Mills Emergent airway documentation: Risks and benefits discussed: yes Consent obtained: yes Consent given by: patient Airway prep: Preoxygenated: yes Patient position: sniffing Mask difficulty assessment: 0 - not attempted Spontaneous ventilation during airway: absent Sedation level during airway: GA Final airway details: Final airway type: endotracheal airway Tube type: ETT ETT size: 7.5 mm Cuffed: yes Technique used for successful ETT placement: direct laryngoscopy Devices/Methods used in placement: stylet and cricoid pressure Insertion site: oral Blade type: Justin Blade size: 3 Cormack-Lehane (direct): grade IIa - partial view of glottis Cuff inflated with: air ETT to teeth: 22 cm Placement verified by: auscultation and CO2 detection Airway secured with: silk tape Number of attempts: 1 Additional comments: Dentition as pre-op; no complications us Josue Rosales MD PhD ANESTHESIA ORDERABLES Fin al Result documented in this encounter Visit Diagnoses Not on filedocumented in this encounter Administered Medications Inactive Administered Medications - up to 3 most recent administrations Medication Order MAR Action Action Date Dose Rate Site ceFAZolin (ANCEF) 2,000 mg/20 mL in sterile water (premix) 2,000 mg 2,000 mg, intravenous, at 400 mL/hr, Administer over 3 Minutes, Once, On Mon10/11/23 at 0700, For 1 dose, Pre-Op, Administer within 60 minutes of incision., Indications: Prophylaxis, SurgicalIndications:Prophylaxis, Surgical Given 10/11/2023 8:43 AM BULK SUGAR HANDLER 2,000 mg fentaNYL (SUBLIMAZE) preservative free injection intravenous, As needed, Starting on Mon10/11/23 at 0847, Anesthesia Intra-op Given 10/11/2023 8:47 AM BULK SUGAR HANDLER 25 mcg Given 10/11/2023 8:37 AM BULK SUGAR HANDLER 50 mcg Lactated Ringer's (LR) infusion 30 mL/hr, intravenous, Continuous, Starting on Mon10/11/23 at 0700, Pre-Op Rate/Dose Verify 10/11/2023 8:23 AM BULK SUGAR HANDLER 30 mL/hr New Bag 10/11/2023 6:42 AM BULK SUGAR HANDLER 30 mL/hr 30 mL/hr lidocaine (cardiac) (XYLOCAINE) preservative free injection intravenous, As needed, Starting on Mon10/11/23 at 0838, Anesthesia Intra-op, Indications: Ventricular ArrhythmiasIndications:Ventricular Arrhythmias Given 10/11/2023 8:38 AM BULK SUGAR HANDLER 60 mg ondansetron (ZOFRAN) injection intravenous, Administer over 2 Minutes, As needed, Starting on Mon10/11/23 at 0948, Anesthesia Intra-op Given 10/11/2023 9:48 AM BULK SUGAR HANDLER 4 mg phenylephrine (NICO-SYNEPHRINE) 1 mg/10 mL (100 mcg/mL) in sodium chloride 0.9% (premix) intravenous, As needed, Starting on Mon10/11/23 at 0847, Anesthesia Intra-op Given 10/11/2023 9:05 AM BULK SUGAR HANDLER 100 mcg Given 10/11/2023 8:47 AM BULK SUGAR HANDLER 100 mcg Given 10/11/2023 8:45 AM BULK SUGAR HANDLER 100 mcg phenylephrine (NICO-SYNEPHRINE) 5 mg/50 mL (100 mcg/mL) in sodium chloride 0.9% (premix) intravenous, Continuous PRN, Starting on Mon10/11/23 at 0845, Anesthesia Intra-op Rate/Dose Change 10/11/2023 9:36 AM BULK SUGAR HANDLER 0.5 mcg/kg/min 20.1 mL/hr Rate/Dose Change 10/11/2023 9:31 AM BULK SUGAR HANDLER 0.7 mcg/kg/min 28. 14 mL/hr Rate/Dose Change 10/11/2023 9:05 AM BULK SUGAR HANDLER 0.9 mcg/kg/min 36. 18 mL/hr propofoL (DIPRIVAN) 10 mg/mL IV intravenous, As needed, Starting on Mon10/11/23 at 0847, Anesthesia Intra-op New Bag 10/11/2023 8:47 AM BULK SUGAR HANDLER 40 mg New Bag 10/11/2023 8:38 AM BULK SUGAR HANDLER 120 mg succinylcholine syringe intravenous, As needed, Starting on Mon10/11/23 at 0839, Anesthesia Intra-op Given 10/11/2023 8:39 AM BULK SUGAR HANDLER 80 mg documented in this encounter Care Teams Car Stereo Installer Relationship Specialty Start Date End Date Becky Conroy, PRACTICE CLINICIAN [address] [place] [address] PCP - General Nurse Practitioner 07/06/23 Jose Chairez MD PhD [address] [facility] [address] [place], [place] [id number] Medical Oncologist/Independent Living Specialist Medical Oncology 08/14/23 Evelin Lofton MD [address] [place] [address] Referring Physician Cardiovascular Disease 08/14/23 documented as of this encounter
--- OUTSIDE RECORDS SUMMARY | 2024-09-17 04:23 | XMS_ITS | Encounter Summary ---
Author Organization [facility] Address [address] [place] [address] Phone Care Team Providers Care Wait Staff Name Role Phone Becky Conroy NP Primary Care Provider [phone] Reason for Visit * Episode Based Medications (Routine) - Closed Specialty Diagnoses / Procedures Referred By Contmarques t Referred To Contact Oncology Diagnoses Malignant melanoma of unknown origin (HCC) Jose Chairez MD PhD [address] [facility] [place] [address] Phone: tel: fax: [facility] [address] [address] Phone: tel: fax: Referral ID Status Reason Start Date Expiration Date Visits Re quested Visits Authorized [id number] Closed 05/27/2024 09/04/2024 1 30 Encounter Details Date Type Department Care Team (Late st Contact Info) Description 08/08/2023 10:45 AM DELINQUENT NOTICE MACHINE OPERATOR Office Visit [facility] [address] [place] [phone] Jose Chairez MD PhD [address] [facility] [address] [place] [address] Malignant melanoma of unknown origin (HCC) (Primary Dx) Social History Tobacco Use Types Packs/Day Years Used Date Smoking Tobacco: Never Smokeless Tobacco: Never Comments Unknown Sex and Gender Information Value Date Recorded Sex Assigned at Not on file Legal Sex Female 1:54 AM DELINQUENT NOTICE MACHINE OPERATOR Gender Identity Not on file Sexual Orientation Not on file documented as of this encounter Last Filed Vital Signs Vital Sign Reading Time Taken Comments Blood Pressure 157/91 08/08/2023 10:27 AM DELINQUENT NOTICE MACHINE OPERATOR Pulse 71 08/08/2023 10:27 AM DELINQUENT NOTICE MACHINE OPERATOR Temperature 36.7 ??C (98.1 ??F) 08/08/2023 10:[address] Respiratory Rate 16 08/08/2023 10:27 AM DELINQUENT NOTICE MACHINE OPERATOR Oxygen Saturation 95% 08/08/2023 10:27 AM DELINQUENT NOTICE MACHINE OPERATOR Inhaled Oxygen Concentration - - Weight 68.1 kg (150 lb 3.2 oz) 08/08/2023 10:27 AM DELINQUENT NOTICE MACHINE OPERATOR Height 162.6 cm (5' 4 ) 08/08/2023 10:27 AM DELINQUENT NOTICE MACHINE OPERATOR Body Mass Index 25.78 08/08/2023 10:27 AM DELINQUENT NOTICE MACHINE OPERATOR documented in this encounter Progress Notes * Jose Chairez MD PhD - 08/08/2023 10:45 AM CST Oncology Progress Note Cancer Staging [...] with acute enhancing synovitis on the right. 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 Notes some fatigue and poor sleep but overall no major change in medical status. Presents with daughter today. No Known Allergies Outpatient Encounter Medications as of 08/08/2023: clopidogreL (PLAVIX) 75 mg tablet, Take 1 tablet (75 mg total) by mouth daily, Disp: , Rfl: enalapril (VASOTEC) 10 mg tablet, Take 1 tablet (10 mg total) by mouth 2 (two) times a day, Disp: ,Rfl: esomeprazole DR (NexIUM) 40 mg capsule, Take 1 capsule (40 mg total) by mouth as needed, Disp: , Rfl: furosemide (LASIX) 20 mg tablet, 1 tablet (20 mg total), Disp: , Rfl: hydroCHLOROthiazide (HYDRODIURIL) 25 mg tablet, Take 1 tablet (25 mg total) by mouth daily, Disp: ,Rfl: metoprolol XL (TOPROL-XL) 50 mg extended release tablet, Take 1 tablet (50 mg total) by mouth daily, Disp: , Rfl: omega-3 fatty acids 500 mg capsule, Take 1 tablet by mouth daily, Disp: , Rfl: potassium chloride ER 10 mEq CR tablet, Take 1 tablet/capsule (10 mEq total) by mouth daily, Disp: , Rfl: prochlorperazine (Compazine) 10 mg tablet, Take 1 tablet (10 mg total) by mouth every 6 (six) hoursas needed for nausea or vomiting, Disp: 30 tablet, Rfl: 3 rosuvastatin (CRESTOR) 10 mg tablet, TAKE 0.5 TABLETS (5 MG TOTAL) BY MOUTH NIGHTLY AT BEDTIME., Disp: , Rfl: zinc gluconate 50 mg tablet, Take 1 tablet (50 mg total) by mouth daily, Disp: , Rfl: No facility-administered encounter medications on file as of 08/08/2023. Review of Systems: Review of systems per HPI and otherwise all other systems are negative Performance Status: ECOG 0 Objective Vitals: Most Recent : BP: 157/91 Temp: 36.7 ??C (98.1 ??F) Pulse: 71 Resp: 16 SpO2: 95 % Height: 157.7 cm (5' 2.09 ) (shoes off) Weight: 67.9 kg (149 lb 11.2 oz) (shoes off) Physical Exam: General Appearance: Well-appearing, in no apparent distress. ECO HEENT: Normocephalic, atraumatic. Pupils equal, round and reactive to light. Sclera anicteric. Oropharynx clear. Extremities: No edema, clubbing or cyanosis. LNs: L axillary mass palpable Skin: Numerous AKs throughout the upper and lower extremities. Neuro: Non-focal. Lab/Radiology/Diagnostic Review: Recent Results (from the past 72 hour(s)) Comprehensive metabolic panel Collection Time: 08/08/23 9:51 AM Result Value Ref Range Sodium 143 135 - 145 mmol/L Potassium, pl 3.3 3.3 - 4.9 mmol/L Chloride 106 97 - 110 mmol/L CO2 29 22 - 32 mmol/L Anion gap 9 2 - 15 mmol/L BUN 18 6 - 25 mg/dL Creatinine 0.65 0.60 - 1.10 mg/dL Glucose 106 70 - 199 mg/dL Calcium 10.4 (H) 8.5 - 10.3 mg/dL Bilirubin, total 0.5 0.1 - 1.2 mg/dL Protein, pl 7.8 6.5 - 8.5 g/dL Albumin 4.6 3.5 - 5.0 g/dL Alk phos 56 40 - 130 Units/L ALT 25 7 - 45 Units/L AST 27 10 - 45 Units/L CBC with auto differential Collection Time: 08/08/23 9:51 AM Result Value Ref Range WBC 8.3 3.8 - 9.9 K/cumm Hgb 13.8 11.9 - 15.5 g/dL Hct 41.4 35.6 - 45.5 % Plt 298 150 - 400 K/cumm MPV 9.9 9.1 - 12.3 fL RBC 4.72 3.90 - 5.20 M/cumm MCV 87.7 81.3 - 96.4 fL MCH 29.2 27.1 - 33.3 pg MCHC 33.3 32.3 - 35.7 g/dL RDW CV 12.7 11.1 - 14.9 % RDW SD 40.7 35.7 - 48.1 fL NRBC abs 0.00 0.00 - 0.01 K/cumm Lactate dehydrogenase (LD) Collection Time: 08/08/23 9:51 AM Result Value Ref Range Lactate dehydrogenase (LDH) 235 100 - 250 Units/L TSH reflex to free T4 Collection Time: 08/08/23 9:51 AM Result Value Ref Range TSH 0.12 (L) 0.30 - 4.20 mcIUnit/mL Differential, auto Collection Time: 08/08/23 9:51 AM Result Value Ref Range Neutrophil abs 4.0 1.7 - 6.5 K/cumm Imm gran abs 0.0 0.0 - 0.1 K/cumm Lymphocyte abs 3.0 0.8 - 3.3 K/cumm Monocyte abs 0.9 (H) 0.2 - 0.8 K/cumm Eosinophil abs 0.3 0.0 - 0.5 K/cumm Basophil abs 0.1 0.0 - 0.1 K/cumm Neutrophil pct 47.7 % Imm gran pct 0.4 % Lymphocyte pct 36.0 % Monocyte pct 11.3 % Eosinophil pct 3.9 % Basophil pct 0.7 % eGFR Collection Time: 08/08/23 9:51 AM Result Value Ref Range eGFR 89 >=60 mL/min/1.73 m2 T4, free Collection Time: 08/08/23 9:51 AM Result Value Ref Range Free T4 1.50 0.90 - 1.70 ng/dL Radiology: MRI Brain W WO Contrast Addendum Date: 08/01/2023 The results were discussed with Dr. Jose Chairez by Buster Blanca, Teacher Tutor on 08/01/2023 at 09:35 hours. Edited by: Buster Blanca Electronically signed by: Zeenat Alcala M.D. Result Date: 08/01/2023 No MR evidence of intracranial metastases. 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 Recommend further evaluation with CTA/MRA. Degenerative changes of the bilateral temporomandibular joints, with acute enhancing synovitis on the right. Dictated by: Krunal Moran MD The radiology attending physician has personally reviewed this study, and had reviewed and/or edited this written report and agrees with it. Electronically signed by: Zeenat Alcala M.D. PET/CT FDG Whole Body Result Date: 07/31/2023 1. Hypermetabolic left axillary mass in keeping with biopsy-proven melanoma. Adjacent mildly avid 1cm left subpectoral lymph node suspicious for additional site of metastatic disease. 2. No discreteprimary cutaneous lesion identified. 3. Mildly hypermetabolic 1.2 cm right middle lobe pulmonary nodule. Differential diagnosis includes primary lung malignancy, less likely metastatic melanoma givenmild degree of uptake and less likely inflammation given focal and well- defined nature of the lesion. Recommend tissue sampling vs short-term interval follow-up if definitive diagnosis is required for treatment planning. Dictated by: Sofi Krueger M.D. The radiology attending physician has personally reviewed this study, and had reviewed and/or edited this written report and agrees with it. Electronically signed by: Hernando Cordova M.D. Assessment/Plan Magui Baker is 78 y.o. woman with metastatic melanoma presenting for ongoing recommendations for therapy. Tempus with NRAS mutation. Melanoma - biopsy confirmed L axillary met. Begin neoadjuvant pembro per SWOG 1801-based approach of neoadjuvant pembro (3 X 3week cycles), surgery, and 15 cycles of adjuvant pembro. Seeing Dr. Davis in next week to confirm this remains feasible. Even if surgery not rec'ed, PD-1 alone therapy is very appropriate at potentially definitive therapy given limited disease burden and age. Monitor small lung nodule on subsequent scans. MRI brain - no evidence of melanoma mets, which is great news. 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 Referral sent to [facility] - patient will schedule. Will also have pre-op eval if plans for surgery. ROV 3 weeks to continue pembro. Restaging PET likely 3 months pending surgery. All questions answered. Reiterated that I remain available for additional questions that may arise going forward. NQUENT NOTICE MACHINE OPERATOR documented in this encounter Plan of Treatment Not on file documented as of this encounter Results * (ABNORMAL) Comprehensive metabolic panel (08/29/2023 8:15 AM DELINQUENT NOTICE MACHINE OPERATOR) Sodium 143 135 - 145 mmol/L [facility] Comment:Testing performed by : [facility], [address] [place] [address] Potassium, pl 3.4 3.3 - 4.9 mmol/L [facility] Chloride 103 97 - 110 mmol/L [facility] CO2 31 22 - 32 mmol/L [facility] Anion gap 9 2 - 15 mmol/L [facility] BUN 19 6 - 25 mg/dL [facility] Creatinine 0.57(L) 0.60 - 1.10 mg/dL [facility] Glucose 110 70 - 199 mg/dL [facility] Comment: Interpretive Data Fasting glucose [...] Calcium 9.8 8.5 - 10.3 mg/dL [facility] Bilirubin, total 0.4 0.1 - 1.2 mg/dL [facility] Protein, pl 8.1 6.5 - 8.5 g/dL [facility] Albumin 4.7 3.5 - 5.0 g/dL [facility] Alk phos 53 40 - 130 Units/L [facility] ALT 25 7 - 45 Units/L [facility] AST 27 10 - 45 Units/L [facility] Blood 08/29/2023 8:15 AM DELINQUENT NOTICE MACHINE OPERATOR 08/29/2023 8:16 AM DELINQUENT NOTICE MACHINE OPERATOR us Jose Chairez MD PhD LAB BLOOD ORDERABLES Final Result [facility] [place] [address] * CBC with auto differential (08/29/2023 8:15 AM DELINQUENT NOTICE MACHINE OPERATOR) [facility] WBC 8.8 3.8 - 9.9 K/cumm [facility] Comment:Testing performed by : [address] [address] Hgb 13.6 11.9 - 15.5 g/dL [facility] Comment:Testing performed by : [address] [address] Hct 41.5 35.6 - 45.5 % [facility] Comment:Testing performed by : [address] [address] Plt 246 150 - 400 K/cumm [facility] Comment:Testing performed by : [address] [address] MPV 9.7 9.1 - 12.3 fL [facility] RBC 4.68 3.90 - 5.20 M/cumm [facility] MCV 88.7 81.3 - 96.4 fL [facility] MCH 29.1 27.1 - 33.3 pg [facility] MCHC 32.8 32.3 - 35.7 g/dL [facility] RDW CV 12.6 11.1 - 14.9 % [facility] RDW SD 41.2 35.7 - 48.1 fL [facility] NRBC abs 0.00 0.00 - 0.01 K/cumm [facility] Blood 08/29/2023 8:15 AM DELINQUENT NOTICE MACHINE OPERATOR 08/29/2023 8:16 AM DELINQUENT NOTICE MACHINE OPERATOR us Jose Chairez MD PhD LAB BLOOD ORDERABLES Final Result [facility] Department [place] [address] * Lactate dehydrogenase (LD) (08/29/2023 8:15 AM DELINQUENT NOTICE MACHINE OPERATOR) [facility] Lactate dehydrogenase (LDH) 221 100 - 250 Units/L [facility] Comment:Testing performed by : [facility], [address] [place] [address] Blood 08/29/2023 8:15 AM DELINQUENT NOTICE MACHINE OPERATOR 08/29/2023 8:16 AM DELINQUENT NOTICE MACHINE OPERATOR Jose Chairez MD PhD LAB BLOOD ORDERABLES Final Result Performing Organization Address City/[facility]/ZIP Co de Phone Number [facility] Department [place] [address] * (ABNORMAL) TSH reflex to free T4 (08/29/2023 8:15 AM DELINQUENT NOTICE MACHINE OPERATOR) [facility] TSH 0.11(L) 0.30 - 4.20 mcIUnit/mL [facility] Blood 08/29/2023 8:15 AM DELINQUENT NOTICE MACHINE OPERATOR 08/29/2023 9:11 AM DELINQUENT NOTICE MACHINE OPERATOR Jose Chairez MD PhD LAB BLOOD ORDERABLES Final Result Performing Organization Address [facility] Co de Phone Number [facility] [place] [address] documented in this encounter Visit Diagnoses Diagnosis Malignant melanoma of unknown origin (HCC)- Primary documented in this encounter Historical Medications * This list may reflect changes made after this encounter. rosuvastatin (CRESTOR) 10 mg tabletIndications :hyperlipidemia Take 0.5 tablets (5 mg total) by mouth every morning 0.5 tablet potassium chloride ER 10 mEq CR tabletIndications :hypokalemia prevention Take 1 tablet/capsule (10 mEq total) by mouth every morning metoprolol XL (TOPROL-XL) 50 mg extended release tabletIndications :hypertension Take 1 tablet (50 mg total) by mouth every morning hydroCHLOROthiazi de (HYDRODIURIL) 25 mg tabletIndications :Edema,hypertensi on Take 1 tablet (25 mg total) by mouth every morning added in this encounter Orders Appointment Requests Count Last Ordered Date Fi rst Ordered Date ONCBCN CLINIC APPOINTMENT REQUEST 2 023 08/08/2023 ONCBCN LAB APPOINTMENT 1 08/29/2023 ONCBCN RETURN CHEMO 1.5HRS 2 08/29/2023 1 10/08/2022 documented in this encounter Care Teams Wait Staff Relationship Specialty Start Date End Date Becky Conroy NP [address] [place] [address] PCP - General Nurse Practitioner 07/06/23 documented as of this encounter
--- OUTSIDE RECORDS SUMMARY | 2024-09-17 04:23 | XMS_ITS | Encounter Summary ---
Author Organization [facility] Address [address] [place] [address] Phone Care Team Providers Care Cloth Booker Name Role Phone Becky Conroy NP Primary Care Provider [phone] Jose Chairez MD PhD Unavailable [phone]- [phone] Evelin Lofton MD Unavailable [phone] Reason for Visit * Reason Onset Date Comments Surgery Confirmation 10/10/2023 Encounter Details Date Type Department Care Team (Late st Contact Info) Description 10/10/2023 Telephone [facility] Department of Hepatobiliary, Pancreatic, & Gastrointestinal Surgery [address], [place] [address] Elo Bella MA Surgery Confirmation Social History Tobacco Use Types Packs/Day Years [...] file Legal Sex Female 1:54 AM RN MATERNAL CHILD Gender Identity Not on file Sexual Orientation Not on file documented as of this encounter Miscellaneous Notes * Telephone Encounter - JenaElo bird RMA - 10/10/2023 1:56 PM CST Spoke with patient arrival time for tomorrow 0630 for surgery at [facility]. Patient verbalized understanding of time and location. MATERNAL CHILD documented in this encounter Plan of Treatment Not on file documented as of this encounter Visit Diagnoses Not on filedocumented in this encounter Care Teams Cloth Booker Relationship Specialty Start Date End Date Becky Conroy NP [address] [place] [address] PCP - General Nurse Practitioner 07/06/23 Jose Chairez MD PhD [address] [facility] [address] [place], [place] [id number] Medical Oncologist/Wire Annealer Medical Oncology 08/14/23 Evelin Lofton MD [address] [place], [place] [address] Referring Physician Cardiovascular Disease 08/14/23 documented as of this encounter
--- OUTSIDE RECORDS SUMMARY | 2024-09-17 04:23 | XMS_ITS | Encounter Summary ---
Author Organization [facility] Address [address] [place] [address] Phone Care Team Providers Care Cross Tie Cutter Name Role Phone Becky Conroy NP Primary Care Provider [phone] Jose Chiarez MD PhD Unavailable [phone] Evelin Lofton MD Unavailable [phone] Reason for Visit * Episode Based Medications (Routine) - Closed Specialty Diagnoses / Procedures Referred By Contac t Referred To Contact Oncology Diagnoses Malignant melanoma of unknown origin (HCC) Jose Chairez MD PhD [address] [facility] [address] [place] [address] Phone: tel: fax: [facility] [address] [place] [address] Phone: tel: fax: Referral ID Status Reason Start Date Expiration Date Visits Re quested Visits Authorized [id number] Closed 05/27/2024 09/04/2024 1 30 Encounter Details Date Type Department Care Team (Late st Contact Info) Description 08/29/2023 8:30 AM MANAGER EDUCATION Lab [facility] Oncology [address] [place] [phone] Malignant melanoma of unknown origin (HCC) Social [...] file Legal Sex Female 1:54 AM MANAGER EDUCATION Gender Identity Not on file Sexual Orientation Not on file documented as of this encounter Plan of Treatment Not on file documented as of this encounter Visit Diagnoses Diagnosis Malignant melanoma of unknown origin (HCC) documented in this encounter Orders Appointment Requests Count Last Ordered Date Fi rst Ordered Date ONCBCN LAB APPOINTMENT 1 08/29/2023 documented in this encounter Care Teams Cross Tie Cutter Relationship Specialty Start Date End Date Becky Conroy SUPERVISING APPRAISER [address] [place] [address] PCP - General Nurse Practitioner 07/06/23 Jose Chairez MD PhD [address] [facility] [address] [place], [place] [id number] Medical Oncologist/[facility] Medical Oncology 08/14/23 Evelin Lofton MD [address] [place] [address] Referring Physician Cardiovascular Disease 08/14/23 documented as of this encounter
--- OUTSIDE RECORDS SUMMARY | 2024-09-17 04:23 | XMS_ITS | Encounter Summary ---
Author Organization [facility] Address [address] [place] [address] Phone Care Team Providers Care Log Roller Name Role Phone Becky Conroy NP Primary Care Provider [phone] Jose Chairez MD PhD Unavailable [phone] Evelin Lofton MD Unavailable [phone] Encounter Details Date Type Department Care Team (Late st Contact Info) Description 09/20/2023 Telephone [facility] Neurosurgery [address] [facility] Advanced Medicine 6th [place] [address] [place] [address] Sukumar Whipple MD [address] [place] [address] Social History Tobacco Use Types [...] on file Legal Sex Female 1:54 AM REFINERY PROCESS ENGINEER Gender Identity Not on file Sexual Orientation Not on file documented as of this encounter Miscellaneous Notes * Telephone Encounter - Milka Baptiste - 09/20/2023 2:50 PM CST CTA 09/06/23; [facility] loaded and report in media. Disc in folder. NERY PROCESS ENGINEER documented in this encounter Plan of Treatment Not on file documented as of this encounter Visit Diagnoses Not on filedocumented in this encounter Care Teams Log Roller Relationship Specialty Start Date End Date Becky Conroy NP [address] [place] [address] PCP - General Nurse Practitioner 07/06/23 Jose Chairez MD PhD [address] [facility] [address] [place], [place] [id number] Medical Oncologist/Field Pipelines Supervisor Medical Oncology 08/14/23 Evelin Lofton MD [address] [place] [address] Referring Physician Cardiovascular Disease 08/14/23 documented as of this encounter
--- OUTSIDE RECORDS SUMMARY | 2024-09-17 04:23 | XMS_ITS | Encounter Summary ---
Author Organization [facility] Address [address] [place] [address] Care Team Providers Care Director Of Corporate Sales Name Role Phone Becky Conroy NP Primary Care Provider [phone] Reason for Visit * MRI/CAT/PET Scan (Routine) - Closed Specialty Diagnoses / Procedures Referred By Contac t Referred To Contact Radiology Diagnoses Malignant melanoma of unknown origin (HCC) Procedures PET/CT FDG Whole Body Jose Chairez MD PhD [address] [facility] [address] [place] [address] Phone: tel: fax: [address] [address] Referral ID Status Reason Start Date Expiration Date Visits Re quested Visits Authorized [id number] Closed 07/18/2023 08/16/2024 1 1 Encounter Details Date Type Department Care Team (Latest Contact Info) Description 07/31/2023 2:04 PM CUTTER HOT KNIFE - 07/31/2023 11:59 PM C[employer]TER [employer] KNIFE Hospital Encounter [facility] [address] [place] [address] Discharge Disposition: Discharge to home or self care Social History Tobacco Use Types Packs/Day Years Used Date Smoking Tobacco: Never Assessed Comments Unknown Sex and Gender Information Value Date Recorded Sex Assigned at Not on file Legal Sex Female 1:54 AM CUTTER HOT KNIFE Gender Identity Not on file Sexual Orientation [...] (20 mg total) by mouth as needed omega-3 fatty acids 500 mg capsuleIndications :supplement Take 1 tablet by mouth every morning 12/24/2014 zinc gluconate 50 mg tabletIndications: supplement Take 1 tablet (50 mg total) by mouth every morning biotin 2,500 mcg capsule Take 2 tablets by mouth daily 12/24/2014 4 documented as of this encounter Discharge Disposition Disposition Code Departure Means Destination Discharge to home or self care documented in this encounter Plan of Treatment Not on file documented as of this encounter Procedures Procedure Name Priority Date/Time Associated Diagnosis Comments PET/CT FDG WHOLE BODY Schedule Routine, Read Routine (OP Routine) 07/31/2023 4:06 PM [employer] KNIFE Malignant melanoma of unknown origin (HCC) documented in this encounter Results * PET/CT FDG Whole Body (07/31/2023 4:06 PM CUTTER HOT KNIFE) Anatomical Region Laterality Modality Body N/A Positron Emissio n Tomography (PET) 07/31/2023 4:57 PM C[employer]TER H[employer] KNIFE Impressions 07/31/2023 6:16 PM [employer] KNIFE 1. ??Hypermetabolic left axillary mass in keeping with biopsy-proven melanoma. ??Adjacent mildly avid 1 cm left subpectoral lymph node suspicious for additional site of metastatic disease. 2. ??No discrete primary cutaneous lesion identified. 3. ??Mildly hypermetabolic 1.2 cm right middle lobe pulmonary nodule. Differential diagnosis includes primary lung malignancy, less likely metastatic melanoma given mild degree of uptake and less likely inflammation given focal and well-defined nature of the lesion. Recommend tissue sampling vs short-term interval follow-up ??if definitive diagnosis is required for treatment planning. Dictated by: Sofi Krueger M.D. The radiology attending physician has personally reviewed this study, and had reviewed and/or edited this written report and agrees with it. Electronically signed by: Hernando Cordova M.D. Narrative 07/31/2023 6:16 PM C[employer]TER H[employer] KNIFE EXAMINATION: TUMOR FDG-PET/CT IMAGING DATE OF STUDY: ??07/31/2023 SCANNER: [facility] RADIOPHARMACEUTICAL: 16.5 mCi F-18 Fluorodeoxyglucose (FDG) i.v. Injection site: Right hand HISTORY: 78-year-old woman with newly diagnosed metastatic malignant melanoma of unknown primary diagnosed via left axillary biopsy on 06/30/2023. ??The study is requested for initial staging. Initial treatment strategy. TECHNIQUE: ?? The patient's fasting blood glucose level, measured by glucometer before injection of FDG, was 105 mg/dL. ?? After intravenous administration of FDG, noncontrast CT images were obtained for attenuation correction and for fusion with emission PET images to allow for anatomical localization of PET findings. Emission PET images were then obtained. ??The study was interpreted on the [employer] workstation. ??The mean liver SUV (reported for quality control lead purposes) is 2.4. The total scanned area was skull vertex to the knees. ??Images of the body were obtained starting 64 minutes after injection of tracer. COMPARISON: None available DESCRIPTORS OF LESION FDG AVIDITY: Minimal: ? <= blood pool ? Mild: ?> blood pool and <= liver ? Moderate: ?? > liver and <= 2x SUVmax liver ? Moderate to marked: ?? >2x SUVmax liver and <= 3x SUVmax liver ? Marked: ? > 3x SUVmax liver ? FINDINGS: Hypermetabolic left axillary mass with internal areas of photopenia likely related to recent biopsy. The mass measures up to 5.5 x 4.5 cm in greatest transaxial dimension, maximum SUV 18.2. There is an adjacent 1 cm left subpectoral lymph node with mild uptake (106/412). Additional smaller left axillary nodes are seen with uptake less than or equal to blood pool. 1.2 x 0.9 cm right middle lobe pulmonary nodule with mild uptake, maximum SUV 1.9 (136/412). No discrete hypermetabolic primary skin lesion is identified. The most FDG-avid lesion is left axillary mass, has a maximum SUV of 18.2, and approximate axial dimensions of 5.5 x 4.5 cm. ?? Additional CT findings: Left maxillary sinus mucus retention cyst. Dental restorations. Atherosclerotic calcification of the aorta and its branches. ??Coronary artery calcifications. ??Old granulomatous disease with calcified right hilar lymph nodes, calcified right pulmonary nodules and calcified splenic granulomata. Cholecystectomy. ??Hysterectomy. ??Surgical clips in the right hemipelvis. ??Multilevel degenerative disc disease. Procedure Note Hernando Cordova MD - 07/31/2023 EXAMINATION: TUMOR FDG-PET/CT IMAGING DATE OF STUDY: 07/31/2023 SCANNER: [facility] RADIOPHARMACEUTICAL: 16.5 mCi F-18 Fluorodeoxyglucose (FDG) i.v. Injection site: Right hand HISTORY: 78-year-old woman with newly diagnosed metastatic malignant melanoma of unknown primary diagnosed via left axillary biopsy on 06/30/2023. The study is requested for initial staging. Initial treatment strategy. TECHNIQUE: The patient's fasting blood glucose level, measured by glucometer before injection of FDG, was 105 mg/dL. After intravenous administration of FDG, noncontrast CT images were obtained for attenuation correction and for fusion with emission PET images to allow for anatomical localization of PET findings. Emission PET images were then obtained. The study was interpreted on the [employer] workstation. The mean liver SUV (reported for quality control lead purposes) is 2.4. The total scanned area was skull vertex to the knees. Images of the body were obtained starting 64 minutes after injection of tracer. COMPARISON: None available DESCRIPTORS OF LESION FDG AVIDITY: Minimal: <= blood pool Mild: > blood pool and <= liver Moderate: > liver and <= 2x SUVmax liver Moderate to marked: >2x SUVmax liver and <= 3x SUVmax liver Marked: > 3x SUVmax liver FINDINGS: Hypermetabolic left axillary mass with internal areas of photopenia likely related to recent biopsy. The mass measures up to 5.5 x 4.5 cm in greatest transaxial dimension, maximum SUV 18.2. There is an adjacent 1 cm left subpectoral lymph node with mild uptake (106/412). Additional smaller left axillary nodes are seen with uptake less than or equal to blood pool. 1.2 x 0.9 cm right middle lobe pulmonary nodule with mild uptake, maximum SUV 1.9 (136/412). No discrete hypermetabolic primary skin lesion is identified. The most FDG-avid lesion is left axillary mass, has a maximum SUV of 18.2, and approximate axial dimensions of 5.5 x 4.[address] findings: Left maxillary sinus mucus retention cyst. Dental restorations. Atherosclerotic calcification of the aorta and its branches. Coronary artery calcifications. Old granulomatous disease with calcified right hilar lymph nodes, calcified right pulmonary nodules and calcified splenic granulomata. Cholecystectomy. Hysterectomy. Surgical clips in the right hemipelvis. Multilevel degenerative disc disease. IMPRESSION: 1. Hypermetabolic left axillary mass in [...] on filedocumented in this encounter Care Teams Director Of Corporate Sales Relationship Specialty Start Date End Date Becky Conroy HAZMAT TRUCK DRIVER [address] [place] [address] PCP - General Nurse Practitioner 07/06/23 documented as of this encounter
--- OUTSIDE RECORDS SUMMARY | 2024-09-17 04:23 | XMS_ITS | Encounter Summary ---
Author Organization [facility] Address [address] [place] [address] Care Team Providers Care Eligibility Examiner Name Role Phone Becky Conroy NP Primary Care Provider [phone] Jose Chariez MD PhD Unavailable [phone]- [phone] Evelin Lofton MD Unavailable [phone] Encounter Details Date Type Department Care Team (Late st Contact Info) Description 09/19/2023 9:50 AM LIFE INSURANCE UNDERWRITER Lab [facility] [address] [place] [id number] Malignant melanoma of unknown origin (HCC) [...] on file Legal Sex Female 1:54 AM LIFE INSURANCE UNDERWRITER Gender Identity Not on file Sexual Orientation Not on file documented as of this encounter Plan of Treatment Not on file documented as of this encounter Procedures Procedure Name Priority Date/Time Associated Diagnosis Comments EGFR STAT 09/19/2023 10:00 AM LIFE INSURANCE UNDERWRITER Malignant melanoma of unknown origin (HCC) DIFFERENTIAL AUTO Routine 09/19/2023 10: 00 AM LIFE INSURANCE UNDERWRITER Malignant melanoma of unknown origin (HCC) THYROID FUNCTION CASCADE Routine 09/19/2023 10:00 AM LIFE INSURANCE UNDERWRITER Malignant melanoma of unknown origin (HCC) CBC WITH AUTO DIFFERENTIAL Routine 09/19/2023 10:00 AM LIFE INSURANCE UNDERWRITER Malignant melanoma of unknown origin (HCC) PROTIME-INR Routine 09/19/2023 10:00 AM LIFE INSURANCE UNDERWRITER Malignant melanoma of unknown origin (HCC) T4, FREE Routine 09/19/2023 10:00 AM LIFE INSURANCE UNDERWRITER Malignant melanoma of unknown origin (HCC) LACTATE DEHYDROGENASE Routine 09/19/2023 10:00 AM LIFE INSURANCE UNDERWRITER Malignant melanoma of unknown origin (HCC) COMPREHENSIVE METABOLIC PANEL STAT 09/19/2023 10:00 AM LIFE INSURANCE UNDERWRITER Malignant melanoma of unknown origin (HCC) documented in this encounter Results * T4, free (09/19/2023 10:00 AM LIFE INSURANCE UNDERWRITER) Free T4 1.66 0.90 - 1.70 ng/dL [facility] Blood 09/19/2023 10:0 0 AM LIFE INSURANCE UNDERWRITER 09/19/2023 11:44 AM LIFE INSURANCE UNDERWRITER Narrative [facility] - 09/19/2023 12:40 PM LIFE INSURANCE UNDERWRITER This test was reflexed from a TSH result. us Jose Chairez MD PhD LAB BLOOD ORDERABLES Final Result [facility] [place] [address] * eGFR (09/19/2023 10:00 AM LIFE INSURANCE UNDERWRITER) eGFR 67 >=60 mL/min/1. 73 m2 [facility] Comment: Interpretive Data Reference Interval Normal [...] interpretive data was last reviewed 2021. Blood 09/19/2023 10:0 0 AM LIFE INSURANCE UNDERWRITER 09/19/2023 10:00 AM LIFE INSURANCE UNDERWRITER us Jose Chairez MD PhD LAB BLOOD ORDERABLES Final Result [facility] Department [place] [address] * Differential, auto (09/19/2023 10:00 AM LIFE INSURANCE UNDERWRITER) Neutrophil abs 4.0 1.5 - 6.5 K/cumm [facility] Comment:Testing performed by : [facility], [address] [place] [address] Imm gran abs 0.0 0.0 - 0.1 K/cumm [facility] Lymphocyte abs 2.8 0.8 - 3.3 K/cumm [facility] Monocyte abs 0.7 0.2 - 0.8 K/cumm [facility] Eosinophil abs 0.3 0.0 - 0.5 K/cumm [facility] Basophil abs 0.1 0.0 - 0.1 K/cumm [facility] Neutrophil pct 50.5 % [facility] Comment: Interpretive Data Percent cell count reference ranges are not reported, since discordance with absolute values may lead to misinterpretation of CBC data. Current Interpretive Data was last revised on 2017. Imm gran pct 0.4 % [facility] Comment: Interpretive Data Percent cell count reference ranges are not reported, since discordance with absolute values may lead to misinterpretation of CBC data. Current Interpretive Data was last revised on 2017. Lymphocyte pct 35.2 % [facility] Comment: Interpretive Data Percent cell count reference ranges are not reported, since discordance with absolute values may lead to misinterpretation of CBC data. Current Interpretive Data was last revised on 2017. Monocyte pct 9.1 % [facility] Comment: Interpretive Data Percent cell count reference ranges are not reported, since discordance with absolute values may lead to misinterpretation of CBC data. Current Interpretive Data was last revised on 2017. Eosinophil pct 3.9 % [facility] Comment: Interpretive Data Percent cell count reference ranges are not reported, since discordance with absolute values may lead to misinterpretation of CBC data. Current Interpretive Data was last revised on 2017. Basophil pct 0.9 % [facility] Comment: Interpretive Data Percent cell count reference ranges are not reported, since discordance with absolute values may lead to misinterpretation of CBC data. Current Interpretive Data was last revised on 2017. Blood 09/19/2023 10:0 0 AM LIFE INSURANCE UNDERWRITER 09/19/2023 10:00 AM LIFE INSURANCE UNDERWRITER us Jose Chairez MD PhD LAB BLOOD ORDERABLES Final Result [facility] [place] [address] * Protime-INR (09/19/2023 10:00 AM LIFE INSURANCE UNDERWRITER) PT 11.5 10.3 - 13.7 sec [facility] INR 1.01 0.90 - 1.20 [facility] Comment: Interpretive data Oral anticoagulant therapeutic ranges: Venous thromboembolism prophylaxis or treatment: 2.0-3.0 CARDIOLOGY Standard range: 2.0-3.0 High-intensity range: 2.5-3.5 Refer to indication-specific guidelines for appropriate target ranges for prosthetic heart valve replacement. Current interpretive data was last revised on 2019. Blood 09/19/2023 10:0 0 AM LIFE INSURANCE UNDERWRITER 09/19/2023 11:08 AM LIFE INSURANCE UNDERWRITER Jose Chairez MD PhD LAB BLOOD ORDERABLES Final Result Performing Organization Address [facility]/ZIP Co de Phone Number [facility] Department [place] [address] * (ABNORMAL) TSH reflex to free T4 (09/19/2023 10:00 AM LIFE INSURANCE UNDERWRITER) TSH 0.08(L) 0.30 - 4.20 mcIUnit/mL [facility] Blood 09/19/2023 10:0 0 AM LIFE INSURANCE UNDERWRITER 09/19/2023 11:44 AM LIFE INSURANCE UNDERWRITER Jose Chairez MD PhD LAB BLOOD ORDERABLES Final Result Performing Organization Address [facility] Co de Phone Number [facility] Department [place] [address] * Lactate dehydrogenase (LD) (09/19/2023 10:00 AM LIFE INSURANCE UNDERWRITER) Lactate dehydrogenase (LDH) 203 100 - 250 Units/L [facility] Comment:Testing performed by : [facility], [address] [place] [address] Blood 09/19/2023 10:0 0 AM LIFE INSURANCE UNDERWRITER 09/19/2023 10:00 AM LIFE INSURANCE UNDERWRITER Jose Chairez MD PhD LAB BLOOD ORDERABLES Final Result [facility] Department [place] [address] * CBC with auto differential (09/19/2023 10:00 AM LIFE INSURANCE UNDERWRITER) [facility] WBC 7.9 3.8 - 9.9 K/cumm [facility] Comment:Testing performed by : [address] [address] Hgb 13.3 11.9 - 15.5 g/dL [facility] Comment:Testing performed by : [address] [address] Hct 41.0 35.6 - 45.5 % [facility] Comment:Testing performed by : [address] [address] Plt 236 150 - 400 K/cumm [facility] Comment:Testing performed by : [address] [address] MPV 9.8 9.1 - 12.3 fL [facility] RBC 4.61 3.90 - 5.20 M/cumm [facility] MCV 88.9 81.3 - 96.4 fL [facility] MCH 28.9 27.1 - 33.3 pg [facility] MCHC 32.4 32.3 - 35.7 g/dL [facility] RDW CV 13.1 11.1 - 14.9 % [facility] RDW SD 43.0 35.7 - 48.1 fL [facility] NRBC abs 0.00 0.00 - 0.01 K/cumm [facility] Blood 09/19/2023 10:0 0 AM LIFE INSURANCE UNDERWRITER 09/19/2023 10:00 AM LIFE INSURANCE UNDERWRITER us Jose Chairez MD PhD LAB BLOOD ORDERABLES Final Result [facility] Department [place] [address] * (ABNORMAL) Comprehensive metabolic panel (09/19/2023 10:00 AM LIFE INSURANCE UNDERWRITER) Sodium 142 135 - 145 mmol/L [facility] Comment:Testing performed by : [facility], [address] [place] [address] Potassium, pl 3.8 3.3 - 4.9 mmol/L [facility] Chloride 105 97 - 110 mmol/L [facility] CO2 29 22 - 32 mmol/L [facility] Anion gap 8 2 - 15 mmol/L [facility] BUN 22 6 - 25 mg/dL [facility] Creatinine 0.87 0.60 - 1.10 mg/dL [facility] Glucose 107 70 - 199 mg/dL [facility] Comment: Interpretive Data Fasting glucose [...] interpretive data was last revised 2022. Calcium 10.4(H) 8.5 - 10.3 mg/dL [facility] Bilirubin, total 0.3 0.1 - 1.2 mg/dL [facility] Protein, pl 7.7 6.5 - 8.5 g/dL [facility] Albumin 4.7 3.5 - 5.0 g/dL [facility] Alk phos 49 40 - 130 Units/L [facility] ALT 22 7 - 45 Units/L [facility] AST 23 10 - 45 Units/L [facility] Blood 09/19/2023 10:0 0 AM LIFE INSURANCE UNDERWRITER 09/19/2023 10:00 AM LIFE INSURANCE UNDERWRITER us Jose Chairez MD PhD LAB BLOOD ORDERABLES Final Result [facility] Department [place] [address] documented in this encounter Visit Diagnoses Diagnosis Malignant melanoma of unknown origin (HCC) documented in this encounter Care Teams Eligibility Examiner Relationship Specialty Start Date End Date Becky Conroy SHOE CASER [address] [place] [address] PCP - General Nurse Practitioner 07/06/23 Jose Chairez MD PhD [address] [facility] [address] [place] [address] Medical Oncologist/User Interface Artist Medical Oncology 08/14/23 Evelin Lofton MD [address] [place] [address] Referring Physician Cardiovascular Disease 08/14/23 documented as of this encounter
--- OUTSIDE RECORDS SUMMARY | 2024-09-17 04:23 | XMS_ITS | Encounter Summary ---
Author Organization [facility] Address [address] [place] [address] Phone Care Team Providers Care Edger Tailer Name Role Phone Becky Conroy NP Primary Care Provider [phone] Jose Chairez MD PhD Unavailable [phone]- [phone] Evelin Lofton MD Unavailable [phone] Encounter Details Date Type Department Care Team (Late st Contact Info) Description 10/06/2023 Documentation [facility] Oncology [address] [place] [address] Rocio Hernandez, MARGAUX Social History Tobacco Use Types Packs/Day Years [...] on file Legal Sex Female 1:54 AM AIRCRAFT SKIN BURNISHER Gender Identity Not on file Sexual Orientation Not on file documented as of this encounter Ordered Prescriptions Prescription Sig Dispense Quantity Refills Last Filled Start Date End Date hydrOXYzine (ATARAX) 10 mg tablet Take 1 tablet (10 mg total) by mouth nightly as needed for itching 30 tablet 2 10/06/2023 documented in this encounter Nursing Notes * Rocio Hernandez RN - 10/06/2023 12:57 PM CST Called the patient and talked to her about the good results from her PET scan. She continues to have itching especially at night despite using triamcinolone and allergy medication. Per Dr. Chairez, ok to send Rx for Atarax to be taken in the PM. Pt is aware that it can cause mild sedation. RAFT SKIN BURNISHER documented in this encounter Plan of Treatment Not on file documented as of this encounter Visit Diagnoses Not on filedocumented in this encounter Care Teams Edger Tailer Relationship Specialty Start Date End Date Becky Conroy NP [address] [place] [address] PCP - General Nurse Practitioner 07/06/23 Jose Chairez MD PhD [address] [facility] [address] [place], [place] [id number] Medical Oncologist/Retail Manager Medical Oncology 08/14/23 Evelin Lofton MD [address] [place] [address] Referring Physician Cardiovascular Disease 08/14/23 documented as of this encounter
--- OUTSIDE RECORDS SUMMARY | 2024-09-17 04:23 | XMS_ITS | Encounter Summary ---
Author Organization [facility] Healthcare Address [address] [place] [address] Care Team Providers Care Pasteuriser Operator Name Role Phone Becky Conroy NP Primary Care Provider [phone] [phone] Reason for Referral * MRI/CAT/PET Scan (Routine) - Closed Specialty Diagnoses / Procedures Referred By Contac t Referred To Contact Radiology Diagnoses Malignant melanoma of unknown origin (HCC) Procedures PET/CT FDG Whole Body Jose Chairez MD PhD [address] [address] Phone: tel: fax: [address] [address] Referral ID Status Reason Start Date Expiration Date Visits Re quested Visits Authorized [id number] Closed 07/18/2023 08/16/2024 1 1 TS TRAFFIC CONTROLLER Reason for Visit * MRI/CAT/PET Scan (Routine) - Closed Specialty Diagnoses / Procedures Referred By Contac t Referred To Contact Radiology Diagnoses Malignant melanoma of unknown origin (HCC) Procedures PET/CT FDG Whole Body Jose Chairez MD PhD [address] [address] Phone: tel: fax: [address] [address] Referral ID Status Reason Start Date Expiration Date Visits Re quested Visits Authorized [id number] Closed 07/18/2023 08/16/2024 1 1 Encounter Details Date Type Department Care Team (Latest Contact Info) Description 07/31/2023 2:04 PM EVENTS TRAFFIC CONTROLLER - 07/31/2023 11:59 PM EVENTS TRAFFIC CONTROLLER Hospital Encounter [facility] Advanced Medicine Imaging [address] [place] [address] Malignant melanoma of unknown origin (HCC) Discharge Disposition: Discharge to home or self care Social History Tobacco Use Types Packs/Day Years Used Date Smoking Tobacco: Never Assessed Comments Unknown Sex and Gender Information Value Date Recorded Sex Assigned at Not on file Legal Sex Female 1:54 AM EVENTS TRAFFIC CONTROLLER Gender Identity Not on file Sexual Orientation [...] Read Routine (OP Routine) 07/31/2023 4:06 PM EVENTS TRAFFIC CONTROLLER Malignant melanoma of unknown origin (HCC) documented in this encounter Results * PET/CT FDG Whole Body (07/31/2023 4:06 PM EVENTS TRAFFIC CONTROLLER) Anatomical Region Laterality Modality Body N/A Positron Emissio n Tomography (PET) 07/31/2023 4:57 PM EVENTS TRAFFIC CONTROLLER Impressions 07/31/2023 6:16 PM EVENTS TRAFFIC CONTROLLER 1. ??Hypermetabolic left axillary mass in keeping [...] Hernando Cordova M.D. Narrative 07/31/2023 6:16 PM EVENTS TRAFFIC CONTROLLER EXAMINATION: TUMOR FDG-PET/CT IMAGING DATE OF STUDY: ??07/31/2023 SCANNER: [facility] RADIOPHARMACEUTICAL: 16.5 mCi [...] obtained. ??The study was interpreted on the WAVE (Wireless Advanced Vehicle Elect[employer]) workstation. ??The mean liver SUV (reported for quality compliance manager purposes) is 2.4. The total scanned area [...] FDG-PET/CT IMAGING DATE OF STUDY: 07/31/2023 SCANNER: [facility] RADIOPHARMACEUTICAL: 16.5 mCi [...] obtained. The study was interpreted on the WAVE (Wireless Advanced Vehicle Elect[employer]) workstation. The mean liver SUV (reported for quality compliance manager purposes) is 2.4. The total scanned area [...] Dose Rate Site fludeoxyglucose F-18 (FDG) injection 16.54 millicurie 16.54 millicurie, intravenous, Once in imaging, radiopharmaceutical, Starting on Mon07/31/23 at 1433, For 1 dose Given 07/31/2023 2:36 PM EVENTS TRAFFIC CONTROLLER 16.54 millicuries Right Hand documented in this encounter Orders Medications Ordered That Stalin ht Not Have Been Administered Count Last Ordered Date First Ordered Date fludeoxyglucose F-18 (FDG) i njection 16.54 millicurie 1 07/31/2023 documented in this encounter Care Teams Pasteuriser Operator Relationship Specialty Start Date End Date Becky Conroy NP [address] [place] [address] PCP - General Nurse Practitioner 07/06/23 documented as of this encounter
--- OUTSIDE RECORDS SUMMARY | 2024-09-17 04:23 | XMS_ITS | Encounter Summary ---
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 Gender Identity Not on file Sexual Orientation Not on file documented as of this encounter Plan of Treatment Not on file documented as of this encounter Procedures Procedure Name Priority Date/Time Associated Diagnosis Comments SCAN - RADIOLOGY/IMAGING 09/06/2023 documented in this encounter Results * SCAN - RADIOLOGY/IMAGING (09/06/2023) Anatomical Region Laterality Modality Other us Provider Scanning Final Result documented in this encounter Visit Diagnoses Not on filedocumented in this encounter Care Teams Refrigerator Car Icer Relationship Specialty Start Date End Date Becky Conroy TERMINAL WORKER [address] [place] [address] PCP - General Nurse Practitioner 07/06/23 Jose Chairez MD PhD [address] [facility] [address] [place], [place] [id number] Medical Oncologist/Ice Skating Teacher Medical Oncology 08/14/23 Evelin Lofton MD [address] [place] [address] Referring Physician Cardiovascular Disease 08/14/23 documented as of this encounter
--- OUTSIDE RECORDS SUMMARY | 2024-09-17 04:23 | XMS_ITS | Encounter Summary ---
Author Organization [facility] Healthcare Address [address] [place] [address] Care Team Providers Care Support Services Manager Name Role Phone Becky Conroy NP Primary Care Provider [phone] [phone] Jose Chairez MD PhD Unavailable [phone]- [phone] Evelin Lofton MD Unavailable [phone] Encounter Details Date Type Department Care Team (Late st Contact Info) Description 08/29/2023 8:10 AM BLOOD BANK ATTENDANT Lab [facility] [address] [place] [id number] Malignant melanoma of unknown origin (HCC) Social [...] on file Legal Sex Female 1:54 AM BLOOD BANK ATTENDANT Gender Identity Not on file Sexual Orientation Not on file documented as of this encounter Plan of Treatment Not on file documented as of this encounter Procedures Procedure Name Priority Date/Time Associated Diagnosis Comments EGFR STAT 08/29/2023 8:15 AM BLOOD BANK ATTENDANT Malignant melanoma of unknown origin (HCC) DIFFERENTIAL AUTO Routine 08/29/2023 8:1 5 AM BLOOD BANK ATTENDANT Malignant melanoma of unknown origin (HCC) THYROID FUNCTION CASCADE Routine 08/29/2023 8:15 AM BLOOD BANK ATTENDANT Malignant melanoma of unknown origin (HCC) CBC WITH AUTO DIFFERENTIAL Routine 08/29/2023 8:15 AM BLOOD BANK ATTENDANT Malignant melanoma of unknown origin (HCC) T4, FREE Routine 08/29/2023 8:15 AM BLOOD BANK ATTENDANT Malignant melanoma of unknown origin (HCC) LACTATE DEHYDROGENASE Routine 08/29/2023 8:15 AM BLOOD BANK ATTENDANT Malignant melanoma of unknown origin (HCC) COMPREHENSIVE METABOLIC PANEL STAT 08/29/2023 8:15 AM BLOOD BANK ATTENDANT Malignant melanoma of unknown origin (HCC) documented in this encounter Results * T4, free (08/29/2023 8:15 AM BLOOD BANK ATTENDANT) Pathologist [facility] Free T4 1.45 0.90 - 1.70 ng/dL [facility] Blood 08/29/2023 8:15 AM BLOOD BANK ATTENDANT 08/29/2023 9:18 AM BLOOD BANK ATTENDANT Narrative [facility] - 08/29/2023 10:03 AM BLOOD BANK ATTENDANT This test was reflexed from a TSH result. us Jose Chairez MD PhD LAB BLOOD ORDERABLES Final Result [facility] Department [place] [address] * eGFR (08/29/2023 8:15 AM BLOOD BANK ATTENDANT) eGFR >90 >=60 mL/min/1. 73 m2 [facility] Comment: Interpretive Data Reference Interval Normal [...] interpretive data was last reviewed 2021. Blood 08/29/2023 8:15 AM BLOOD BANK ATTENDANT 08/29/2023 8:16 AM BLOOD BANK ATTENDANT us Jose Chairez MD PhD LAB BLOOD ORDERABLES Final Result [facility] Department [place] [address] * Differential, auto (08/29/2023 8:15 AM BLOOD BANK ATTENDANT) Neutrophil abs 4.6 1.5 - 6.5 K/cumm [facility] Comment:Testing performed by : [facility], [address] [place] [address] Imm gran abs 0.0 0.0 - 0.1 K/cumm [facility] Lymphocyte abs 2.9 0.8 - 3.3 K/cumm [facility] Monocyte abs 0.8 0.2 - 0.8 K/cumm [facility] Eosinophil abs 0.4 0.0 - 0.5 K/cumm [facility] Basophil abs 0.1 0.0 - 0.1 K/cumm [facility] Neutrophil pct 51.8 % [facility] Comment: Interpretive Data Percent cell count reference ranges are not reported, since discordance with absolute values may lead to misinterpretation of CBC data. Current Interpretive Data was last revised on 2017. Imm gran pct 0.3 % [facility] Comment: Interpretive Data Percent cell count reference ranges are not reported, since discordance with absolute values may lead to misinterpretation of CBC data. Current Interpretive Data was last revised on 2017. Lymphocyte pct 33.3 % [facility] Comment: Interpretive Data Percent cell count reference ranges are not reported, since discordance with absolute values may lead to misinterpretation of CBC data. Current Interpretive Data was last revised on 2017. Monocyte pct 8.9 % [facility] Comment: Interpretive Data Percent cell count reference ranges are not reported, since discordance with absolute values may lead to misinterpretation of CBC data. Current Interpretive Data was last revised on 2017. Eosinophil pct 4.7 % [facility] Comment: Interpretive Data Percent cell count reference ranges are not reported, since discordance with absolute values may lead to misinterpretation of CBC data. Current Interpretive Data was last revised on 2017. Basophil pct 1.0 % [facility] Comment: Interpretive Data Percent cell count reference ranges are not reported, since discordance with absolute values may lead to misinterpretation of CBC data. Current Interpretive Data was last revised on 2017. Blood 08/29/2023 8:15 AM BLOOD BANK ATTENDANT 08/29/2023 8:16 AM BLOOD BANK ATTENDANT us Jose Chairez MD PhD LAB BLOOD ORDERABLES Final Result [facility] Department [place] [address] * (ABNORMAL) TSH reflex to free T4 (08/29/2023 8:15 AM BLOOD BANK ATTENDANT) TSH 0.11(L) 0.30 - 4.20 mcIUnit/mL [facility] Blood 08/29/2023 8:15 AM BLOOD BANK ATTENDANT 08/29/2023 9:11 AM BLOOD BANK ATTENDANT Jose Chairez MD PhD LAB BLOOD ORDERABLES Final Result Performing Organization Address City/[facility]/ZIP Co de Phone Number [facility] [place] [address] * Lactate dehydrogenase (LD) (08/29/2023 8:15 AM BLOOD BANK ATTENDANT) Pathologist [facility] Lactate dehydrogenase (LDH) 221 100 - 250 Units/L [facility] Comment:Testing performed by : [address] [address] Blood 08/29/2023 8:15 AM BLOOD BANK ATTENDANT 08/29/2023 8:16 AM BLOOD BANK ATTENDANT Jose Chairez MD PhD LAB BLOOD ORDERABLES Final Result Performing Organization Address [facility] de Phone Number [facility] [place] [address] * CBC with auto differential (08/29/2023 8:15 AM BLOOD BANK ATTENDANT) [facility] WBC 8.8 3.8 - 9.9 K/cumm [facility] Comment:Testing performed by : [address] [address] Hgb 13.6 11.9 - 15.5 g/dL [facility] Comment:Testing performed by : [address] [address] Hct 41.5 35.6 - 45.5 % [facility] Comment:Testing performed by : [address] [address] Plt 246 150 - 400 K/cumm [facility] Comment:Testing performed by : [address] [address] MPV 9.7 9.1 - 12.3 fL [facility] RBC 4.68 3.90 - 5.20 M/cumm [facility] MCV 88.7 81.3 - 96.4 fL [facility] MCH 29.1 27.1 - 33.3 pg [facility] MCHC 32.8 32.3 - 35.7 g/dL [facility] RDW CV 12.6 11.1 - 14.9 % [facility] RDW SD 41.2 35.7 - 48.1 fL [facility] NRBC abs 0.00 0.00 - 0.01 K/cumm [facility] Blood 08/29/2023 8:15 AM BLOOD BANK ATTENDANT 08/29/2023 8:16 AM BLOOD BANK ATTENDANT us Jose Chairez MD PhD LAB BLOOD ORDERABLES Final Result [facility] Department [place] [address] * (ABNORMAL) Comprehensive metabolic panel (08/29/2023 8:15 AM BLOOD BANK ATTENDANT) Sodium 143 135 - 145 mmol/L [facility] Comment:Testing performed by : [facility], [address] [place] [address] Potassium, pl 3.4 3.3 - 4.9 mmol/L [facility] Chloride 103 97 - 110 mmol/L [facility] CO2 31 22 - 32 mmol/L [facility] Anion gap 9 2 - 15 mmol/L [facility] BUN 19 6 - 25 mg/dL [facility] Creatinine 0.57(L) 0.60 - 1.10 mg/dL [facility] Glucose 110 70 - 199 mg/dL [facility] Comment: Interpretive Data Fasting glucose [...] 2022. Calcium 9.8 8.5 - 10.3 mg/dL [facility] Bilirubin, total 0.4 0.1 - 1.2 mg/dL [facility] Protein, pl 8.1 6.5 - 8.5 g/dL [facility] Albumin 4.7 3.5 - 5.0 g/dL [facility] Alk phos 53 40 - 130 Units/L [facility] ALT 25 7 - 45 Units/L [facility] AST 27 10 - 45 Units/L [facility] Blood 08/29/2023 8:15 AM BLOOD BANK ATTENDANT 08/29/2023 8:16 AM BLOOD BANK ATTENDANT us Jose Chairez MD PhD LAB BLOOD ORDERABLES Final Result [facility] Department [place] [address] documented in this encounter Visit Diagnoses Diagnosis Malignant melanoma of unknown origin (HCC) documented in this encounter Care Teams Support Services Manager Relationship Specialty Start Date End Date Becky Conroy NP [address] [place] [address] PCP - General Nurse Practitioner 07/06/23 Jose Chairez MD PhD [address] [facility] [address] [place] [address] Medical Oncologist/Special Effects Artist Medical Oncology 08/14/23 Evelin Lofton MD [address] [place] [address] Referring Physician Cardiovascular Disease 08/14/23 documented as of this encounter
--- OUTSIDE RECORDS SUMMARY | 2024-09-17 04:23 | XMS_ITS | Encounter Summary ---
Author Organization [facility] Address [address] [place] [address] Phone Care Team Providers Care Service Worker Name Role Phone Becky Conroy NP Primary Care Provider [phone] Jose Chairez MD PhD Unavailable +1- [phone] Evelin Lofton MD Unavailable [phone] Encounter Details Date Type Department Care Team (Late st Contact Info) Description 08/24/2023 Telephone 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 Once these images have been obtain please have AV review for plan. Reminder set to follow up with pt on location,time and date OGRAPHIC PRESS OPERATOR APPRENTICE documented in this encounter Plan of Treatment Not on file documented as of this encounter Visit Diagnoses Not on filedocumented in this encounter Care Teams Service Worker Relationship Specialty Start Date End Date Becky Conroy NP [address] [place] [address] PCP - General Nurse Practitioner 07/06/23 Jose Chairez MD PhD [address] [facility] [address] [place], [place] [id number] Medical Oncologist/Disability Services Coordinator Medical Oncology 08/14/23 Evelin Lofton MD [address] [place] [address] Referring Physician Cardiovascular Disease 08/14/23 documented as of this encounter
--- OUTSIDE RECORDS SUMMARY | 2024-09-17 04:23 | XMS_ITS | Encounter Summary ---
Author Organization [facility] Address [address] [place] [address] Phone Care Team Providers Care Broodmare Foreman Name Role Phone Becky Conroy NP Primary Care Provider [phone] Jose Chairez MD PhD Unavailable +1- [phone] Evelin Lofton MD Unavailable [phone] Encounter Details Date Type Department Care Team (Late st Contact Info) Description 08/01/2023 Telephone [facility] Scheduling [address] [place] [address] Zohra Newsome Social History Tobacco Use Types Packs/Day Years Used Date Smoking Tobacco: Never Assessed Comments Unknown Sex and Gender Information Value Date Recorded Sex Assigned at Not on file Legal Sex Female 1:54 AM NITROGLYCERIN NEUTRALIZER Gender Identity Not on file Sexual Orientation Not on file documented as of this encounter Miscellaneous Notes * Telephone Encounter - James Park - 08/15/2023 10:47 AM CST Pt called in to schedule the appt with Dr Whipple as per the previous note. Reason for visit: New Pt Appt Date: 08/24/2023 Time: 1:00pm Location: [facility] Provider Dr. Whipple Routed: CLEVE Whipple OGLYCERIN NEUTRALIZER * Telephone Encounter - Marilyn Jiang CNA - 08/10/2023 9:12 AM NITROGLYCERIN NEUTRALIZER WQ SEVERE BASILAR ARTERY STENOSIS-F/A. Pt called and reg/intake updated. Records/imaging in [facility]. Will either of you see? OGLYCERIN NEUTRALIZER * Telephone Encounter - Marilyn Jiang CNA - 08/10/2023 8:43 AM NITROGLYCERIN NEUTRALIZER ..Department of Neurological Surgery at [facility] Cranial Intake Sheet 08/10/23 Maguichicho Cortes Leidyphuong 1945 [id number] Becky Conroy NP Are you a New or Returning Pt? new Referring physician Oncologist Referred to: First Available: Second Opinion: No Diagnosis: IMPRESSION: No MR evidence of intracranial metastases. 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 Recommend further evaluation with CTA/MRA. Degenerative changes of the bilateral temporomandibular joints, with acute enhancing synovitis on the right. Insurance: Yes: Type of insurance MEDICARE AND [employer] Has the patient had brain surgery within the last year? No Blurred Vision: No Loss of Sight: No Weakness on one side of body or a particular area: No Loss of bowel or bladder control: No Duration of symptoms: INCIDENTAL FINDING DURING SCANNING AFTER PT WAS DIAGNOSED WITH MALIGNANT MELANOMA. Prior brain surgery within last 10 years: No Destination Medicine: No Imaging Done within Last Year: Yes List ALL MRI: Month 07/31/ 2022 PET-07/31/2023 Imaging Location: [facility] FAX Records Requested: In [facility] Does the patient have any metal in their body? Like a stent or cardiac device? YES, HEART STENT Reason for visit: New Pt Appt Date: Time: Location: Provider Routed: OGLYCERIN NEUTRALIZER * Telephone Encounter - Olu Pedroza - 08/09/2023 9:16 AM CST Pt called wanting to schedule her appt but wasn't in the mood. PT said she will call back. OGLYCERIN NEUTRALIZER * Telephone Encounter - James Park - 08/01/2023 1:13 PM CST WQ 1st attempt - LVM and our number for the pt to call back. Dx is Malignant melanoma of unknown origin Thank you OGLYCERIN NEUTRALIZER documented in this encounter Plan of Treatment Not on file documented as of this encounter Visit Diagnoses Not on filedocumented in this encounter Care Teams Broodmare Foreman Relationship Specialty Start Date End Date Becky Conroy BUTCHER ALL ROUND [address] [place] [address] PCP - General Nurse Practitioner 07/06/23 Jose Chairez MD PhD [address] [facility] [address] [place] [address] Medical Oncologist/Frontload Driver Medical Oncology 08/14/23 Evelin Lofton MD [address] [place] [address] Referring Physician Cardiovascular Disease 08/14/23 documented as of this encounter
--- OUTSIDE RECORDS SUMMARY | 2024-09-17 04:23 | XMS_ITS | Encounter Summary ---
Author Organization [facility] Address [address] [place] [address] Phone Care Team Providers Care International Relations Professor Name Role Phone Becky Conroy NP Primary Care Provider [phone] [phone] Jose Chairez MD PhD Unavailable [phone] Evelin Lofton MD Unavailable [phone] Encounter Details Date Type Department Care Team (Late st Contact Info) Description 10/13/2023 Telephone [facility] Advanced Medicine 5th [place] [address] [place] [address] Samia Perez Social History Tobacco Use Types Packs/Day Years [...] on file 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 She has a drain placed and she states nothing is draining in the bag but is draining on the dressing of wound. She wants to know if this is normal and would like a cb. TECHNICIAN documented in this encounter Plan of Treatment Not on file documented as of this encounter Visit Diagnoses Not on filedocumented in this encounter Care Teams International Relations Professor Relationship Specialty Start Date End Date Becky Conroy, SPACE CONTROL SUPERVISOR [address] [place] [address] PCP - General Nurse Practitioner 07/06/23 Jose Chairez MD PhD [address] [facility] [address] [place] [address] Medical Oncologist/Manager Data Medical Oncology 08/14/23 Evelin Lofton MD [address] [place] [address] Referring Physician Cardiovascular Disease 08/14/23 documented as of this encounter
--- OUTSIDE RECORDS SUMMARY | 2024-09-17 04:23 | XMS_ITS | Encounter Summary ---
Author Organization [facility] Address [address] [place] [address] Phone Care Team Providers Care Dredge Worker Name Role Phone Becky Conroy NP Primary Care Provider [phone] Jose Chairez MD PhD Unavailable [phone]- [phone] Evelin Lofton MD Unavailable [phone] Encounter Details Date Type Department Care Team (Late st Contact Info) Description 09/27/2023 Telephone [facility] Neurosurgery [address] [facility] Advanced Medicine 6th [place] [address] [place] [address] Sukumar Whipple MD [address] [place] [address] Social History Tobacco Use Types [...] on file Legal Sex Female 1:54 AM PUBLIC ADDRESS 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 Gender Identity Not on file Sexual Orientation Not on file documented as of this encounter Miscellaneous Notes * Telephone Encounter - Fitch, Matt - 09/27/2023 9:51 AM CST Imaging uploaded to [employer] and pushed to PACS IC ADDRESS SYSTEMS MECHANIC documented in this encounter Plan of Treatment Not on file documented as of this encounter Visit Diagnoses Not on filedocumented in this encounter Care Teams Dredge Worker Relationship Specialty Start Date End Date Becky Conroy LAMP [employer]ER [address] [place] [address] PCP - General Nurse Practitioner 07/06/23 Jose Chairez MD PhD [address] [facility] [address] [place], [place] [id number] Medical Oncologist/Aeronautical Engineering Professor Medical Oncology 08/14/23 Evelin Lofton MD [address] [place] [address] Referring Physician Cardiovascular Disease 08/14/23 documented as of this encounter
--- OUTSIDE RECORDS SUMMARY | 2024-09-17 04:23 | XMS_ITS | Encounter Summary ---
Author Organization [facility] Healthcare Address [address] [place] [address] Care Team Providers Care Residential Roofer Name Role Phone Becky Conroy NP Primary Care Provider [phone] Encounter Details Date Type Department Care Team (Late st Contact Info) Description 08/08/2023 9:40 AM DESKTOP SUPPORT SPECIALIST Lab [address] [id number] Malignant melanoma of unknown origin (HCC) Social History Tobacco Use Types Packs/Day Years Used Date Smoking Tobacco: Never Smokeless Tobacco: Never Comments Unknown Sex and Gender Information Value Date Recorded Sex Assigned at Not on file Legal Sex Female 1:54 AM DESKTOP SUPPORT SPECIALIST Gender Identity Not on file Sexual Orientation Not on file documented as of this encounter Plan of Treatment Not on file documented as of this encounter Procedures Procedure Name Priority Date/Time Associated Diagnosis Comments EGFR STAT 08/08/2023 9:51 AM DESKTOP SUPPORT SPECIALIST Malignant melanoma of unknown origin (HCC) DIFFERENTIAL AUTO Routine 08/08/2023 9:5 1 AM DESKTOP SUPPORT SPECIALIST Malignant melanoma of unknown origin (HCC) THYROID FUNCTION CASCADE Routine 08/08/2023 9:51 AM DESKTOP SUPPORT SPECIALIST Malignant melanoma of unknown origin (HCC) CBC WITH AUTO DIFFERENTIAL Routine 08/08/2023 9:51 AM DESKTOP SUPPORT SPECIALIST Malignant melanoma of unknown origin (HCC) T4, FREE Routine 08/08/2023 9:51 AM DESKTOP SUPPORT SPECIALIST Malignant melanoma of unknown origin (HCC) LACTATE DEHYDROGENASE Routine 08/08/2023 9:51 AM DESKTOP SUPPORT SPECIALIST Malignant melanoma of unknown origin (HCC) COMPREHENSIVE METABOLIC PANEL STAT 08/08/2023 9:51 AM DESKTOP SUPPORT SPECIALIST Malignant melanoma of unknown origin (HCC) documented in this encounter Results * T4, free (08/08/2023 9:51 AM DESKTOP SUPPORT SPECIALIST) Free T4 1.50 0.90 - 1.70 ng/dL [facility] Blood 08/08/2023 9:51 AM DESKTOP SUPPORT SPECIALIST 08/08/2023 11:08 AM DESKTOP SUPPORT SPECIALIST Narrative [facility] - 08/08/2023 12:01 PM DESKTOP SUPPORT SPECIALIST This test was reflexed from a TSH result. us Jose Chairez MD PhD LAB BLOOD ORDERABLES Edited Result - Final [facility] Department [place] [address] * eGFR (08/08/2023 9:51 AM DESKTOP SUPPORT SPECIALIST) Pathologist [facility] eGFR 89 >=60 mL/min/1. 73 m2 [facility] Comment: Interpretive Data Reference Interval Normal ?>/= [...] interpretive data was last reviewed 2021. Blood 08/08/2023 9:51 AM DESKTOP SUPPORT SPECIALIST 08/08/2023 9:52 AM DESKTOP SUPPORT SPECIALIST us Jose Chairez MD PhD LAB BLOOD ORDERABLES Final Result [facility] Department [place] [address] * (ABNORMAL) Differential, auto (08/08/2023 9:51 AM DESKTOP SUPPORT SPECIALIST) Neutrophil abs 4.0 1.7 - 6.5 K/cumm [facility] Comment:Testing performed by : [facility], [address] [place] [address] Imm gran abs 0.0 0.0 - 0.1 K/cumm [facility] Lymphocyte abs 3.0 0.8 - 3.3 K/cumm [facility] Monocyte abs 0.9(H) 0.2 - 0.8 K/cumm [facility] Eosinophil abs 0.3 0.0 - 0.5 K/cumm [facility] Basophil abs 0.1 0.0 - 0.1 K/cumm [facility] Neutrophil pct 47.7 % [facility] Comment: Interpretive Data Percent cell count reference ranges are not reported, since discordance with absolute values may lead to misinterpretation of CBC data. Current Interpretive Data was last revised on 2017. Imm gran pct 0.4 % [facility] Comment: Interpretive Data Percent cell count reference ranges are not reported, since discordance with absolute values may lead to misinterpretation of CBC data. Current Interpretive Data was last revised on 2017. Lymphocyte pct 36.0 % [facility] Comment: Interpretive Data Percent cell count reference ranges are not reported, since discordance with absolute values may lead to misinterpretation of CBC data. Current Interpretive Data was last revised on 2017. Monocyte pct 11.3 % [facility] Comment: Interpretive Data Percent cell count reference ranges are not reported, since discordance with absolute values may lead to misinterpretation of CBC data. Current Interpretive Data was last revised on 2017. Eosinophil pct 3.9 % [facility] Comment: Interpretive Data Percent cell count reference ranges are not reported, since discordance with absolute values may lead to misinterpretation of CBC data. Current Interpretive Data was last revised on 2017. Basophil pct 0.7 % [facility] Comment: Interpretive Data Percent cell count reference ranges are not reported, since discordance with absolute values may lead to misinterpretation of CBC data. Current Interpretive Data was last revised on 2017. Blood 08/08/2023 9:51 AM DESKTOP SUPPORT SPECIALIST 08/08/2023 9:52 AM DESKTOP SUPPORT SPECIALIST us Jose Chairez MD PhD LAB BLOOD ORDERABLES Final Result Performing Organization Address City/[facility] Co de Phone Number [facility] Department [place] [address] * (ABNORMAL) TSH reflex to free T4 (08/08/2023 9:51 AM DESKTOP SUPPORT SPECIALIST) Pathologist [facility] TSH 0.12(L) 0.30 - 4.20 mcIUnit/mL [facility] Blood 08/08/2023 9:51 AM DESKTOP SUPPORT SPECIALIST 08/08/2023 10:53 AM DESKTOP SUPPORT SPECIALIST Jose Chairez MD PhD LAB BLOOD ORDERABLES Final Result [facility] [place] [address] * Lactate dehydrogenase (LD) (08/08/2023 9:51 AM DESKTOP SUPPORT SPECIALIST) Lactate dehydrogenase (LDH) 235 100 - 250 Units/L [facility] Comment:Testing performed by : [address] [address] Blood 08/08/2023 9:51 AM DESKTOP SUPPORT SPECIALIST 08/08/2023 9:52 AM DESKTOP SUPPORT SPECIALIST Jose Chairez MD PhD LAB BLOOD ORDERABLES Final Result [facility] Department [place] [address] * CBC with auto differential (08/08/2023 9:51 AM DESKTOP SUPPORT SPECIALIST) [facility] WBC 8.3 3.8 - 9.9 K/cumm [facility] Comment:Testing performed by : [address] [address] Hgb 13.8 11.9 - 15.5 g/dL [facility] Comment: Testing performed by: [address] [address] Interpretive Data A reference range for this assay has not been established for patients with an unknown legal sex. Please refer to the laboratory test catalog for established sex-specific reference intervals. Current interpretive data was last revised on 2023. Hct 41.4 35.6 - 45.5 % [facility] Comment: Testing performed by: [address] [address] Interpretive Data A reference range for this assay has not been established for patients with an unknown legal sex. Please refer to the laboratory test catalog for established sex-specific reference intervals. Current interpretive data was last revised on 2023. Plt 298 150 - 400 K/cumm [facility] Comment:Testing performed by : [address] [address] MPV 9.9 9.1 - 12.3 fL [facility] RBC 4.72 3.90 - 5.20 M/cumm [facility] Comment: Interpretive Data A reference range for this assay has not been established for patients with an unknown legal sex. Please refer to the laboratory test catalog for established sex-specific reference intervals. Current interpretive data was last revised on 2023. MCV 87.7 81.3 - 96.4 fL [facility] MCH 29.2 27.1 - 33.3 pg [facility] MCHC 33.3 32.3 - 35.7 g/dL [facility] RDW CV 12.7 11.1 - 14.9 % [facility] RDW SD 40.7 35.7 - 48.1 fL [facility] NRBC abs 0.00 0.00 - 0.01 K/cumm [facility] Blood 08/08/2023 9:51 AM DESKTOP SUPPORT SPECIALIST 08/08/2023 9:52 AM DESKTOP SUPPORT SPECIALIST Jose Chairez MD PhD LAB BLOOD ORDERABLES Final Result [facility] Department [place] [address] * (ABNORMAL) Comprehensive metabolic panel (08/08/2023 9:51 AM DESKTOP SUPPORT SPECIALIST) Sodium 143 135 - 145 mmol/L [facility] Comment:Testing performed by : [facility], [address] [place] [address] Potassium, pl 3.3 3.3 - 4.9 mmol/L [facility] Chloride 106 97 - 110 mmol/L [facility] CO2 29 22 - 32 mmol/L [facility] Anion gap 9 2 - 15 mmol/L [facility] BUN 18 6 - 25 mg/dL [facility] Creatinine 0.65 0.60 - 1.10 mg/dL [facility] Glucose 106 70 - 199 mg/dL [facility] Comment: Interpretive Data Fasting glucose >/= 126 [...] 2022. Calcium 10.4(H) 8.5 - 10.3 mg/dL [facility] Bilirubin, total 0.5 0.1 - 1.2 mg/dL [facility] Protein, pl 7.8 6.5 - 8.5 g/dL [facility] Albumin 4.6 3.5 - 5.0 g/dL [facility] Alk phos 56 40 - 130 Units/L [facility] ALT 25 7 - 45 Units/L [facility] AST 27 10 - 45 Units/L [facility] Blood 08/08/2023 9:51 AM DESKTOP SUPPORT SPECIALIST 08/08/2023 9:52 AM DESKTOP SUPPORT SPECIALIST us Jose Chairez MD PhD LAB BLOOD ORDERABLES Final Result [facility] Department [place] [address] documented in this encounter Visit Diagnoses Diagnosis Malignant melanoma of unknown origin (HCC) documented in this encounter Care Teams Residential Roofer Relationship Specialty Start Date End Date Becky Conroy NP [address] [place] [address] PCP - General Nurse Practitioner 07/06/23 documented as of this encounter
--- OUTSIDE RECORDS SUMMARY | 2024-09-17 04:23 | XMS_ITS | Encounter Summary ---
Author Organization [facility] Address [address] [place] [address] Phone Care Team Providers Care Tubing Assembler Name Role Phone Becky Conroy NP Primary Care Provider [phone] Reason for Referral * Consultation (Routine) - Closed Specialty Diagnoses / Procedures Referred By Korey harkins Referred To Contact Neurosurgery Diagnoses Malignant melanoma of unknown origin (HCC) Jose Chairez MD PhD [address] [facility] [address] [place] [address] Phone: tel: fax: [facility] (All Locations) Referral ID Status Reason Start Date Expiration Date V isits Requested Visits Authorized [id number] Closed Specialty Services Required 08/01/2023 08/30/2024 1 1 Question Answer Please select the performing region: [facility] (All Locations) [[id number]] # of visits: 1 Comments Brain MRI shows---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 CH ENGINE OPTIMIZATION SPECIALIST Encounter Details Date Type Department Care Team (Late st Contact Info) Description 08/01/2023 11:30 AM SEARCH ENGINE OPTIMIZATION SPECIALIST Office Visit [facility] Oncology [address] [place] [address] Jose Chairez MD PhD [address] [facility] [address] [place] [address] Malignant melanoma of unknown origin (HCC) (Primary Dx) Social History Tobacco Use Types Packs/Day Years Used Date Smoking Tobacco: Never Assessed Comments Unknown Sex and Gender Information Value Date Recorded Sex Assigned at Not on file Legal Sex Female 1:54 AM SEARCH ENGINE OPTIMIZATION SPECIALIST Gender Identity Not on file Sexual Orientation Not on file documented as of this encounter Last Filed Vital Signs Vital Sign Reading Time Taken Comments Blood Pressure 158/75 08/01/2023 11:52 AM SEARCH ENGINE OPTIMIZATION SPECIALIST Pulse 76 08/01/2023 11:52 AM SEARCH ENGINE OPTIMIZATION SPECIALIST Temperature 36.4 ??C (97.6 ??F) 08/01/2023 1 1:52 AM SEARCH ENGINE OPTIMIZATION SPECIALIST Respiratory Rate 16 08/01/2023 11:5 2 AM SEARCH ENGINE OPTIMIZATION SPECIALIST Oxygen Saturation 96% 08/01/2023 11: 52 AM SEARCH ENGINE OPTIMIZATION SPECIALIST Inhaled Oxygen Concentration - - Weight 69.3 kg (152 lb 12.8 oz) 023 11:52 AM SEARCH ENGINE OPTIMIZATION SPECIALIST Height - - Body Mass Index 26.23 07/31/2023 5:25 PM SEARCH ENGINE OPTIMIZATION SPECIALIST documented in this encounter Patient Instructions * Patient Instructions* Rocio Hernandez RN - 08/01/2023 11:30 AM SEARCH ENGINE OPTIMIZATION SPECIALIST [employer] [phone] Keytruda - Pembrolizumab Injection What is this medication? PEMBROLIZUMAB (PEM broe YOHANA ue mab) treats some types of cancer. It works by helping your immune system slow or stop the spread of cancer cells. It is a monoclonal antibody. This medicine may be used for other purposes; ask your health care provider or pharmacist if you have questions. COMMON BRAND NAME(S): Keytruda What should I tell my care team before I take this medication? They need to know if you have any of these conditions: Allogeneic stem cell transplant (uses someone else's stem cells) Autoimmune diseases, such as Crohn disease, ulcerative colitis, lupus History of chest radiation Nervous system problems, such as Guillain-[place] syndrome, myasthenia gravis Organ transplant An unusual or allergic reaction to pembrolizumab, other medications, foods, dyes, or preservatives or trying to get Breast-feeding How should I use this medication? This medication is injected into a vein. It is given by your care team in a hospital or clinic setting. A special MedGuide will be given to you before each treatment. Be sure to read this information carefully each time. Talk to your care team about the use of this medication in children. While it may be prescribed forchildren as young as 6 months for selected conditions, precautions do apply. Overdosage: If you think you have taken too much of this medicine contact a poison control center or emergency room at once. NOTE: This medicine is only for you. Do not share this medicine with others. What if I miss a dose? Keep appointments for follow-up doses. It is important not to miss your dose. Call your care team if you are unable to keep an appointment. What may interact with this medication? Interactions have not been studied. This list may not describe all possible interactions. Give your health care provider a list of all the medicines, herbs, non-prescription drugs, or dietary supplements you use. Also tell them if you smoke, drink alcohol, or use illegal drugs. Some items may interact with your medicine. What should I watch for while using this medication? Your condition will be monitored carefully while you are receiving this medication. You may need blood work while taking this medication. This medication may cause serious skin reactions. They can happen weeks to months after starting the medication. Contact your care team right away if you notice fevers or flu-like symptoms with a rash. The rash may be red or purple and then turn into blisters or peeling of the skin. You may also notice a red rash with swelling of the face, lips, or lymph nodes in your neck or under your arms. Tell your care team right away if you have any change in your eyesight. Talk to your care team if you may be . Serious defects can occur if you take this medication during and for 4 months after the last dose. You will need a negative test before starting this medication. Contraception is recommended while taking this medication and for 4 months after the last dose. Your care team can help you find the option that works for you. Do not breastfeed while taking this medication and for 4 months after the last dose. What side effects may I notice from receiving this medication? Side effects that you should report to your care team as soon as possible: Allergic reactions--skin rash, itching, hives, swelling of the face, lips, tongue, or throat Dry cough, shortness of breath or trouble breathing Eye pain, redness, irritation, or discharge with blurry or decreased vision Heart muscle inflammation--unusual weakness or fatigue, shortness of breath, chest pain, fast or irregular heartbeat, dizziness, swelling of the ankles, feet, or hands Hormone gland problems--headache, sensitivity to light, unusual weakness or fatigue, dizziness, fast or irregular heartbeat, increased sensitivity to cold or heat, excessive sweating, constipation, hair loss, increased thirst or amount of urine, tremors or shaking, irritability Infusion reactions--chest pain, shortness of breath or trouble breathing, feeling faint or lightheaded Kidney injury (glomerulonephritis)--decrease in the amount of urine, red or dark brown urine, foamyor bubbly urine, swelling of the ankles, hands, or feet Liver injury--right upper belly pain, loss of appetite, nausea, light-colored stool, dark yellow orbrown urine, yellowing skin or eyes, unusual weakness or fatigue Pain, tingling, or numbness in the hands or feet, muscle weakness, change in vision, confusion or trouble speaking, loss of balance or coordination, trouble walking, seizures Rash, fever, and swollen lymph nodes Redness, blistering, peeling, or loosening of the skin, including inside the mouth Sudden or severe stomach pain, bloody diarrhea, fever, nausea, vomiting Side effects that usually do not require medical attention (report to your care team if they continue or are bothersome): Bone, joint, or muscle pain Diarrhea Fatigue Loss of appetite Nausea Skin rash This list may not describe all possible side effects. Call your doctor for medical advice about side effects. You may report side effects to FDA at 4-550-TOY-3220. Where should I keep my medication? This medication is given in a hospital or clinic. It will not be stored at home. NOTE: This sheet is a summary. It may not cover all possible information. If you have questions about this medicine, talk to your doctor, pharmacist, or health care provider. ?? 2022 Elsevier/Gold Standard (2022-12-19 00:00:00) Additional Information From [employer] About Keytruda Self-Care Tips: Drink at least two to three quarts of fluid every 24 hours, unless you are instructed otherwise. If you should experience nausea, take anti-nausea medications as prescribed by your doctor, and eatsmall frequent meals. Sucking on lozenges and chewing gum may also help. Avoid sun exposure. Wear SPF 30 (or higher) sun block and protective clothing. In general, drinking alcoholic beverages should be kept to a minimum or avoided completely. You should discuss this with your doctor. Use an electric razor to minimize bleeding Get plenty of rest. Maintain good nutrition. Wash your hands often. You may be at risk for infection, report fever or any other signs of infection immediately to your healthcare provider. Try to avoid crowds or people with colds, and report fever or any other signs of infection immediately to your healthcare provider. Discuss with your health care provider before taking any other medications including over the counter and herbal preparations. To help prevent mouth sores use a soft toothbrush, and rinse three times a day with ?? to 1 teaspoon of baking soda and/or ?? to 1 teaspoon of salt mixed with 8 ounces of water. If you experience symptoms or side effects, be sure to discuss them with your health care team. They can prescribe medications and/or offer other suggestions that are effective in managing such problems. When to contact your doctor or health care provider: Contact your health care provider immediately, day or night, if you should experience any of the following symptoms: Fever of 100.4?? F (38?? or higher, chills) Signs of reaction to the drug (wheezing, chest tightness, itching, bad cough, swelling of the face,lips, tongue or throat) New or worsening cough, chest pain, or shortness of breath Diarrhea or severe abdominal pain, especially right side Blood in your stools or dark stools Skin or the whites of your eyes turn yellow Persistent or unusual headache, extreme weakness, dizziness or fainting, or vision changes The following symptoms require medical attention, but are not an emergency. Contact your doctor or health care provider within 24 hours of noticing any of the following: Unable to eat or drink for 24 hours or have signs of dehydration: tiredness, thirst, dry mouth, dark and decrease amount of urine, or dizziness Urine turns dark or brown (tea color) Decreased appetite Skin rash with or without itching Sores in the mouth Skin blisters and/or peels Numbness or tingling in hands or feet Bleed or bruise more easily than normal Nausea (interferes with ability to eat and unrelieved with prescribed medication) Vomiting (vomiting more than 4-5 times in a 24 hour period) CH ENGINE OPTIMIZATION SPECIALIST CH ENGINE OPTIMIZATION SPECIALIST documented in this encounter Ordered Prescriptions Prescription Sig Dispense Quantity Refills Last Filled Start Date End Date prochlorperazine (Compazine) 10 mg tabletIndications: Malignant melanoma of unknown origin (HCC) Take 1 tablet (10 mg total) by mouth every 6 (six) hours as needed for nausea or vomiting 30 tablet 3 08/07/2023 4 documented in this encounter Progress Notes * Jose Chairez MD PhD - 08/01/2023 11:30 AM CST Oncology Progress Note Cancer Staging [...] Treatment: Pembrolizumab 21 Day Cycles Current day: Preparation (Planned for 08/07/2023) Following planned day: Day 1, Cycle 1 (Planned for 08/08/2023) Subjective Interval History Magui Baker presents for ongoing management of melanoma. She is feeling well overall with no change to overall medical status since last visit. In discussing MRI findings of stenotic vessel, she notes previously being on plavix for h/o CAD with stent placement but had stopped in the past month or so. No strokes/stroke-like symptoms of late. Presents with daughter and granddaughter today. No Known Allergies Outpatient Encounter Medications as of 08/01/2023: clopidogreL (PLAVIX) 75 mg tablet, Take 1 [...] tablet (20 mg total), Disp: , Rfl: omega-3 fatty acids 500 mg capsule, Take 1 tablet by mouth daily, Disp: , Rfl: zinc gluconate 50 mg tablet, Take 1 tablet (50 mg total) by mouth daily, Disp: , Rfl: [START ON 08/07/2023] prochlorperazine (Compazine) 10 mg tablet, Take 1 tablet (10 mg total) by mouth every 6 (six) hours as needed for nausea or vomiting, Disp: 30 tablet, Rfl: 3 No facility-administered encounter medications on file as of 08/01/2023. Review of Systems: Review of systems per HPI and otherwise all other systems are negative Performance Status: ECOG 0 Objective Vitals: Most Recent : BP: 158/75 Temp: 36.4 ??C (97.6 ??F) Temp src: Oral Pulse: 76 Resp: 16 SpO2: 96 % Height: 162.6 cm (5' 4 ) Weight: 69.3 kg (152 lb 12.8 oz) Physical Exam: General Appearance: Well-appearing, in no apparent distress. ECO HEENT: Normocephalic, atraumatic. Pupils equal, round and reactive to light. Sclera anicteric. Oropharynx clear. Extremities: No edema, clubbing or cyanosis. 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 Neuro: Non-focal. Lab/Radiology/Diagnostic Review: No results found for this or any previous visit (from the past 72 hour(s)). Radiology: MRI Brain W WO Contrast Addendum Date: 08/01/2023 The results were discussed with Dr. Jose Chairez by Buster Blanca, Drum Attendant on 08/01/2023 at 09:35 hours. Edited by: uBster Blanca Electronically signed by: Zeenat Alcala M.D. 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 PET scan - confirmed axillary met and adjacent [address], suspect both resectable. R middle lobe nodule is not very PET avid, and while could be a melanoma met or lung primary, not convinced of this. Still favor pursuing L axillary tumor removal as below. Will monitor lung nodule on subsequent scans. We discussed still pursuing SWOG 1801-based approach of neoadjuvant pembro (3 X 3week cycles), surgery, and 15 cycles of adjuvant pembro. Seeing Dr. Davis in 2 weeks to confirm this remains feasible. Even if surgery not rec'ed, PD-1 alone therapy is very appropriate at potentially definitive therapy given limited disease burden and age. MRI brain - no evidence of melanoma mets, which is great news. 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 Will refer to NSGY for input re: management. May be reasonable to restart antiplatelet therapy although risk/benefit complex given active malignancy, likely upcoming surgery, and asymptomatic. Will also have pre-op eval if plans for surgery. ROV 1 week to initiate pembro. Restaging PET likely 3 months pending surgery. NSGY referral sent. All questions answered. Reiterated that I remain available for additional questions that may arise going forward. CH ENGINE OPTIMIZATION SPECIALIST documented in this encounter Plan of Treatment Scheduled Referrals Name Type Priority Associated Diagnoses Order Schedule Ambulatory referral to Neurosurgery Outpatient Referral Routine Malignant melanoma of unknown origin (HCC) Expected: 08/15/2023 (Approximate), Expires: 08/01/2024 documented as of this encounter Results * (ABNORMAL) Comprehensive metabolic panel (08/08/2023 9:51 AM SEARCH ENGINE OPTIMIZATION SPECIALIST) Sodium 143 135 - 145 mmol/L [facility] Comment:Testing performed by : [facility], [address] [facility] [address] Potassium, pl 3.3 3.3 - 4.9 mmol/L [facility] Chloride 106 97 - 110 mmol/L [facility] CO2 29 22 - 32 mmol/L [facility] Anion gap 9 2 - 15 mmol/L [facility] BUN 18 6 - 25 mg/dL [facility] Creatinine 0.65 0.60 - 1.10 mg/dL [facility] Glucose 106 70 - 199 mg/dL [facility] Comment: Interpretive Data Fasting glucose >/= 126 [...] 2022. Calcium 10.4(H) 8.5 - 10.3 mg/dL [facility] Bilirubin, total 0.5 0.1 - 1.2 mg/dL [facility] Protein, pl 7.8 6.5 - 8.5 g/dL [facility] Albumin 4.6 3.5 - 5.0 g/dL [facility] Alk phos 56 40 - 130 Units/L [facility] ALT 25 7 - 45 Units/L [facility] AST 27 10 - 45 Units/L [facility] Blood 08/08/2023 9:51 AM SEARCH ENGINE OPTIMIZATION SPECIALIST 08/08/2023 9:52 AM SEARCH ENGINE OPTIMIZATION SPECIALIST Jose Chairez MD PhD LAB BLOOD ORDERABLES Final Result [facility] Department [place] [address] * CBC with auto differential (08/08/2023 9:51 AM SEARCH ENGINE OPTIMIZATION SPECIALIST) [facility] WBC 8.3 3.8 - 9.9 K/cumm [facility] Comment:Testing performed by : [facility], [address] [place] [id number] Hgb 13.8 11.9 - 15.5 g/dL [facility] Comment: Testing performed by: [facility], [address] [place] [id number] Interpretive Data A reference range for this assay has not been established for patients with an unknown legal sex. Please refer to the laboratory test catalog for established sex-specific reference intervals. Current interpretive data was last revised on 2023. Hct 41.4 35.6 - 45.5 % [facility] Comment: Testing performed by: [address] [id number] Interpretive Data A reference range for this assay has not been established for patients with an unknown legal sex. Please refer to the laboratory test catalog for established sex-specific reference intervals. Current interpretive data was last revised on 2023. Plt 298 150 - 400 K/cumm [facility] Comment:Testing performed by : [facility], [address] [place] [id number] MPV 9.9 9.1 - 12.3 fL [facility] RBC 4.72 3.90 - 5.20 M/cumm [facility] Comment: Interpretive Data A reference range for this assay has not been established for patients with an unknown legal sex. Please refer to the laboratory test catalog for established sex-specific reference intervals. Current interpretive data was last revised on 2023. MCV 87.7 81.3 - 96.4 fL [facility] MCH 29.2 27.1 - 33.3 pg [facility] MCHC 33.3 32.3 - 35.7 g/dL [facility] RDW CV 12.7 11.1 - 14.9 % [facility] RDW SD 40.7 35.7 - 48.1 fL [facility] NRBC abs 0.00 0.00 - 0.01 K/cumm [facility] Blood 08/08/2023 9:51 AM SEARCH ENGINE OPTIMIZATION SPECIALIST 08/08/2023 9:52 AM SEARCH ENGINE OPTIMIZATION SPECIALIST us Jose Chairez MD PhD LAB BLOOD ORDERABLES Final Result [facility] Department [place] [address] * Lactate dehydrogenase (LD) (08/08/2023 9:51 AM SEARCH ENGINE OPTIMIZATION SPECIALIST) Pathologist [facility] Lactate dehydrogenase (LDH) 235 100 - 250 Units/L [facility] Comment:Testing performed by : [address] [address] Blood 08/08/2023 9:51 AM SEARCH ENGINE OPTIMIZATION SPECIALIST 08/08/2023 9:52 AM SEARCH ENGINE OPTIMIZATION SPECIALIST us Jose Chairez MD PhD LAB BLOOD ORDERABLES Final Result Performing Organization Address City/[facility] Co de Phone Number [facility] [place] [address] * (ABNORMAL) TSH reflex to free T4 (08/08/2023 9:51 AM SEARCH ENGINE OPTIMIZATION SPECIALIST) TSH 0.12(L) 0.30 - 4.20 mcIUnit/mL [facility] Blood 08/08/2023 9:51 AM SEARCH ENGINE OPTIMIZATION SPECIALIST 08/08/2023 10:53 AM SEARCH ENGINE OPTIMIZATION SPECIALIST us Jose Chairez MD PhD LAB BLOOD ORDERABLES Final Result Performing Organization Address [facility] [place] [address] documented in this encounter Visit Diagnoses Diagnosis Malignant melanoma of unknown origin (HCC)- Primary documented in this encounter Orders Appointment Requests Count Last Ordered Date Fi rst Ordered Date ONCBCN CLINIC APPOINTMENT REQUEST 2 023 08/01/2023 ONCBCN LAB APPOINTMENT 1 08/08/2023 documented in this encounter Care Teams Tubing Assembler Relationship Specialty Start Date End Date Becky Conroy NP [address] [place] [address] PCP - General Nurse Practitioner 07/06/23 documented as of this encounter
--- OUTSIDE RECORDS SUMMARY | 2024-09-17 04:23 | XMS_ITS | Encounter Summary ---
Author Organization [facility] Healthcare Address [address] [place] [address] Care Team Providers Care Electrical Electronics Technician Name Role Phone Becky Conroy NP Primary Care Provider [phone] Jose Chairez MD PhD Unavailable [phone] Evelin Lofton MD Unavailable [phone] Reason for Visit * Auth/Cert (Routine) Specialty Diagnoses / Procedures Referred By Korey harkins Referred To Contact Diagnoses Metastatic melanoma (HCC) Metastatic melanoma (HCC) [C43.9] Procedures ME BX/EXC LYMPH NODE OPEN DEEP AXILLARY NODE LEFT AXILLARY LYMPH NODE DISSECTION Referral ID Status Reason Start Date Expiration Date Visits Re quested Visits Authorized [id number] 1 1 Encounter Details Date Type Department Care Team (Late st Contact Info) Description 10/11/2023 8:30 AM COMPUTER OPERATIONS ANALYST - 10/11/2023 11:15 AM COMPUTER OPERATIONS ANALYST Surgery [facility] Operating Room [address] [place] [address] Landon Wright MD [id number] [place] [address] LEFT AXILLARY LYMPH NODE DISSECTION Surgery Details Date/Time Status Location OR Service Patient Class Case Cl ass Case Type Trauma Case? 10/11/2023 8:30 AM Posted [facility] OR POD 5 226 Oncology Outpatient in Bed Time Sensitive - 3 Weeks Panel 1 Procedure LRB Anes Op Region Wound Class Comments LEFT AXILLARY LYMPH NODE DISSECTION Left General Axil la Class I - Clean Surgeon Surgeon Role Service Panel Landon Wright MD Primary Oncology 1 documented in this encounter Social History Tobacco [...] on file Legal Sex Female 1:54 AM COMPUTER OPERATIONS ANALYST Gender Identity Not on file Sexual Orientation Not on file documented as of this encounter Last Filed Vital Signs Vital Sign Reading Time Taken Comments Blood Pressure 117/92 10/11/2023 11:15 AM COMPUTER OPERATIONS ANALYST Pulse 89 10/11/2023 11:15 AM COMPUTER OPERATIONS ANALYST Temperature 36.5 ??C (97.7 ??F) 10/11/2023 11:[address] Respiratory Rate 17 10/11/2023 11:00 AM COMPUTER OPERATIONS ANALYST Oxygen Saturation 95% 10/11/2023 11:00 AM COMPUTER OPERATIONS ANALYST Inhaled Oxygen Concentration - - Weight 68 kg (150 lb) 09/13/2023 9:35 AM COMPUTER OPERATIONS ANALYST Height 157.5 cm (5' 2 ) 09/13/2023 9:35 AM COMPUTER OPERATIONS ANALYST Body Mass Index 26.58 09/13/2023 9:35 AM COMPUTER OPERATIONS ANALYST documented in this encounter Discharge Summaries * Arabella Altamirano NP - 10/12/2023 6:29 AM CST Inpatient Discharge Summary BRIEF OVERVIEW Admitting Provider: Landon Wright MD Discharge Provider: Landon Wright MD Primary Care Physician at Discharge: Becky Conroy NP [phone] Admission Date: 10/11/2023 Discharge Date: 10/12/23 0 Primary Discharge Diagnosis: Metastatic melanoma (HCC) Secondary Discharge Diagnosis: Principal Problem: Metastatic melanoma (HCC) Active Problems: Metastatic malignant melanoma (HCC) DETAILS OF HOSPITAL STAY Presenting Problem/History of Present Illness: observation Hospital Course: observation The following conditions have been addressed this admission: Fluid/ Electrolyte abnormalities Hyponatremia [] POA? [] Intervention: __ Hypernatremia [] POA? [] Intervention: __ Hypokalemia [] POA? [] Intervention: __ Hyperkalemia [] POA? [] Intervention: __ Hypophosphatemia [] POA? [] Intervention: __ Hypomagnesemia [] POA? [] Intervention: __ Dehydration [] POA? [] Intervention: __ Fluid overload [] POA? [] Intervention: __ Acidosis [] POA? [] Intervention: __ Alkalosis [] POA? [] Intervention: __ Anemia Acute blood loss anemia [] POA? [] Intervention: __ Iron deficiency anemia [] POA? [] Intervention: __ Anemia of chronic disease [] POA? [] Intervention: __ Anemia of neoplastic disease [] POA? [] Intervention: __ Nutrition disorders Hypoabluminemia [] POA? [] Intervention: __ Mild Malnutrition [] POA? [] Intervention: __ Moderate Malnutrition [] POA? [] Intervention: __ Severe Malnutrition [] POA? [] Intervention: __ Cachexia [] POA? [] Intervention: __ Active Issues Requiring Follow-up: Drain care Outpatient Lymphedema Evaluation Test Results Pending at Discharge: Surgical Pathology Operative Procedures Performed: Procedure(s): LEFT AXILLARY LYMPH NODE DISSECTION Other Procedures: Pertinent Test Results: Lab Results Component Value Date WBC 7.9 09/19/2023 WBC 8.8 08/29/2023 WBC 8.3 08/08/2023 Lab Results Component Value Date HGB 13.3 09/19/2023 HGB 13.6 08/29/2023 HGB 13.8 08/08/2023 Discharge Details Physical Exam at Discharge: Discharge Condition: Good Pulse: 60 Resp: 18 BP: 124/72 Temp: 36.6 ??C (97.9 ??F) Weight: 65.9 kg (145 lb 4.8 oz) Pertinent Exam Findings at Discharge: see last progress note Discharge Disposition: Final discharge disposition not confirmed Code Status at Discharge: Full Code Discharge Instructions: ! Call Your Doctor If Call if you are having any problems after surgery. We prefer you call us directly rather than go to your local hospital or clinic. Even if you decide to go to your local emergency room, call us so we can arrange transfer if needed. Call your surgeon???s office (listed in follow up section) for the following: * You have a fever of 101 degrees or higher. * You have drainage from your incisions. * Your incisions are red or swollen. * Your pain is not being controlled by the prescribed pain medication. * You have nausea or vomiting. * You are not passing gas. * You are having diarrhea. * You have a change in your drain output or appearance. * You are having difficulty stripping your drain. ! Diet * Return to previous diet before surgery. ! Activity * No lifting greater than 10 pounds for 2 weeks. * No driving while on narcotic pain medication. * No tub baths, swimming, or hot tubs for 2 weeks. * You may shower; do not scrub the incision sites. * You are encouraged to walk frequently and remain active during the day. * Continue Range of Motion exercises as instructed. Care Instructions * Keep the incision sites clean and dry. * Do not apply cream or lotion to surgical sites. * Stay well hydrated. Drink at least 2 liters of non-caffeinated beverages daily, preferably water. * Empty the drain 1-2 times each day. Measure the amount each time and write it down. Bring your record to your doctor???s appointment. Call Dr. Wright if drain output is less than 30 mls (1 ounce) per day for 2 days in a row so drain can be removed. * Strip drain as instructed if drain output significantly decreases or you see clots in the tubing.Pinch the tubing close to the skin. Use your other hand to ???milk?? the length of the tubing toward the bulb. Special Instructions ! Follow Up * DR. WRIGHT Nurse Practitioner, Giovana Roberts will see you on MondayOctober 30 at 2:30 in [facility] ([facility] [address] [place] [address] [address] , [place] [address]. Please call for questions or concerns. For after hours, weekends or holidays please contact thechange at [phone]. * With your PRIMARY CARE DOCTOR (PCP) within 2-3 weeks after discharge. If your doctor is not on file with our office, please contact us so that your surgery information may be sent to your doctor???s office. * With your ONCOLOGY DOCTOR within 2-3 weeks after discharge. If your doctor is not on file with our office, please contact us so that your surgery information may be sent to your doctor???s office. Additional Information Discharge Medications: Your medication list START taking these medications acetaminophen 500 mg capsule 1,000 mg, oral, Every 6 hours scheduled gabapentin 100 mg capsule 200 mg, oral, 3 times daily Commonly known as: NEURONTIN ondansetron ODT 4 mg disintegrating tablet 4 mg, oral, Every 4 hours PRN Commonly known as: ZOFRAN-ODT polyethylene glycol 17 gram/dose bulk powder 17 g, oral, Daily Commonly known as: MIRALAX senna-docusate 8.6-50 mg 1 tablet, oral, Daily Commonly known as: PERICOLACE CONTINUE taking these medications clopidogreL 75 mg tablet 75 mg, oral, Every morning Commonly known as: PLAVIX enalapril 10 mg tablet 10 mg, oral, Every morning Commonly known as: VASOTEC ergocalciferol (vitamin D2) 10 mcg (400 unit) tablet 1 tablet, oral, Every morning esomeprazole DR 40 mg capsule 40 mg, oral, As needed Commonly known as: NexIUM furosemide 20 mg tablet 20 mg, oral, As needed Commonly known as: LASIX hydroCHLOROthiazide 25 mg tablet 25 mg, oral, Every morning Commonly known as: HYDRODIURIL hydrOXYzine 10 mg tablet 10 mg, oral, Nightly PRN Commonly known as: ATARAX meloxicam 7.5 mg tablet 7.5 mg, oral, As needed Commonly known as: MOBIC metoprolol XL 50 mg extended release tablet 50 mg, oral, Every morning Commonly known as: TOPROL-XL multivitamin tablet 1 tablet, oral, Every morning mupirocin 2 % ointment Apply topically as needed Commonly known as: BACTROBAN omega-3 fatty acids 500 mg capsule 1 tablet, oral, Every morning potassium chloride ER 10 mEq CR tablet 10 mEq, oral, Every morning Commonly known as: KLOR-CON prochlorperazine 10 mg tablet 10 mg, oral, Every 6 hours PRN Commonly known as: Compazine rosuvastatin 10 mg tablet Take 0.5 tablets (5 mg total) by mouth every morning 0.5 tablet Commonly known as: CRESTOR triamcinolone 0.1 % cream topical, 2 times daily Commonly known as: KENALOG zinc gluconate 50 mg tablet 50 mg, oral, Every morning Outpatient Follow-Up: Future Appointments Date Time Provider Department Center 10/24/2023 8:30 AM LAB, [facility] ONC LAB [facility] LAB 10/24/2023 9:00 AM Jose Chairez MD PhD ONC [facility] Oncology 10/24/2023 10:00 AM POD 5 [facility] INF [facility] INF 10/30/2023 2:30 PM Armando Akhtar NP ONC CAM 5F [facility] Cosigned by Landon Wright MD at 10/12/2023 11:29 AM COMPUTER OPERATIONS ANALYST UTER OPERATIONS ANALYST UTER OPERATIONS ANALYST documented in this encounter Discharge Instructions * Discharge Instructions* Arabella Altamirano NP - 10/12/2023 10:44 AM COMPUTER OPERATIONS ANALYST ! Call Your Doctor If Call if you are having any problems after surgery. We prefer you call us directly rather than go to your local hospital or clinic. Even if you decide to go to your local emergency room, call us so we can arrange transfer if needed. Call your surgeon???s office (listed in follow up section) for the following: * You have a fever of 101 degrees or higher. * You have drainage from your incisions. * Your incisions are red or swollen. * Your pain is not being controlled by the prescribed pain medication. * You have nausea or vomiting. * You are not passing gas. * You are having diarrhea. * You have a change in your drain output or appearance. * You are having difficulty stripping your drain. ! Diet * Return to previous diet before surgery. ! Activity * No lifting greater than 10 pounds for 2 weeks. * No driving while on narcotic pain medication. * No tub baths, swimming, or hot tubs for 2 weeks. * You may shower; do not scrub the incision sites. * You are encouraged to walk frequently and remain active during the day. * Continue Range of Motion exercises as instructed. Care Instructions * Keep the incision sites clean and dry. * Do not apply cream or lotion to surgical sites. * Stay well hydrated. Drink at least 2 liters of non-caffeinated beverages daily, preferably water. * Empty the drain 1-2 times each day. Measure the amount each time and write it down. Bring your record to your doctor???s appointment. Call Dr. Wright if drain output is less than 30 mls (1 ounce) per day for 2 days in a row so drain can be removed. * Strip drain as instructed if drain output significantly decreases or you see clots in the tubing.Pinch the tubing close to the skin. Use your other hand to ???milk?? the length of the tubing toward the bulb. Special Instructions ! Follow Up * DR. WRIGHT Nurse Practitioner, Giovana Roberts will see you on MondayOctober 30 at 2:30 in [facility] ([facility] [address] [place] [address]. Please call for questions or concerns. For after hours, weekends or holidays please contact theInez at [phone]. * With your PRIMARY CARE DOCTOR (PCP) within 2-3 weeks after discharge. If your doctor is not on file with our office, please contact us so that your surgery information may be sent to your doctor???s office. * With your ONCOLOGY DOCTOR within 2-3 weeks after discharge. If your doctor is not on file with our office, please contact us so that your surgery information may be sent to your doctor???s office. Additional Information UTER OPERATIONS ANALYST documented in this encounter Medications at Time [...] morning 0.5 tablet zinc gluconate 50 mg tabletIndications:pichardo pplement Take 1 tablet (50 mg total) [...] to 14 days 20 tablet 10/12/2023 4 gabapentin (NEURONTIN) 100 mg capsule Take 2 capsules (200 mg total) by mouth 3 (three) times a day for 14 days 84 capsule 10/12/2023 4 hydrOXYzine (ATARAX) 10 mg tablet Take 1 tablet (10 mg total) by mouth nightly as needed for itching 30 tablet 2 10/06/2023 4 polyethylene glycol (MIRALAX) 17 gram/dose bulk [...] 08/29/2023 4 documented as of this encounter Ordered Prescriptions Prescription Sig Dispense Quantity Refills Last Filled Start Date End Date senna-docusate (PERICOLACE) 8.6-50 mg Take 1 tablet by mouth daily for 14 days 14 tablet 10/12/2023 4 polyethylene glycol (MIRALAX) 17 gram/dose bulk powderIndications:co nstipation Take 17 g by mouth daily for 14 days 238 g 10/12/2023 4 ondansetron ODT (ZOFRAN-ODT) 4 mg disintegrating tablet Take 1 tablet (4 mg total) by mouth every 4 (four) hours as needed for nausea or vomiting for up to 14 days 20 tablet 10/12/2023 4 gabapentin (NEURONTIN) 100 mg capsule Take 2 capsules (200 mg total) by mouth 3 (three) times a day for 14 days 84 capsule 10/12/2023 4 cyclobenzaprine (FLEXERIL) 5 mg tablet Take 1 tablet (5 mg total) by mouth 3 (three) times a day as needed for muscle spasms for up to 14 days 30 tablet 10/12/2023 4 acetaminophen 500 mg capsuleIndications:P ain Take 2 capsules (1,000 mg total) by mouth every 6 (six) hours for 14 days 30 tablet 10/12/2023 4 documented in this encounter Discharge Disposition Disposition Code Departure Means Destination Comment s Discharge to home or self care documented in this encounter Progress Notes * Beatrice Rehman RN - 10/12/2023 11:42 AM CST 10/12/23 0800 Discharge Summary Discharge Disposition Private residence Equipment/Provider Needs No Home Needs Identified Discharge Additional Assistance Does the patient need discharge transport arranged? No Post Discharge Care Provider Post Discharge Care Plan DC Summary has been faxed to next level of care provider (see Follow Up Providers) Per medical team, patient is medically stable for discharge at this time. Follow up appointment hasbeen scheduled by current medical team. Transportation will be provided by daughter. Patient and/orfamily are agreeable with the plan. If any further discharge needs arise, please contact the covering case picker. UTER OPERATIONS ANALYST * Beatrice Rehman RN - 10/12/2023 11:42 AM CST 10/12/23 1100 Communications Important Message from Medicare notice given to patient? Yes UTER OPERATIONS ANALYST * Asya Burgess, PT - 10/12/2023 9:15 AM CST Lymphedema Therapy Evaluation Note Subjective: Pt agreeable to Lymphedema Therapy assessment. Patient Observation: Patient found supine in bed, no apparent distress. Drain in place. Family present. History of Present Illness/Past Medical History: 78 y.o. year old admitted for Metastatic melanoma (HCC) Length of Hospitalization: 0 Post Procedure Day: 10/11/2023 Procedure(s): LEFT AXILLARY LYMPH NODE DISSECTION Past Medical History: Diagnosis Date Melanoma (HCC) Motion sickness Old myocardial infarction Past myocardial infarction - (Added by DELIA Conv) Personal history of other diseases of the circulatory system History of hypertension - (Added by DELIA Conv) Objective: 10/12/23 0915 General Session Type Evaluation Session Type: Specialty Group Lymphedema Evaluation;Lymphedema Discharge General Chart Reviewed Yes Pain Assessment Pain Assessment No/denies pain Lymphedema Lymphedema location Left;UE (*at risk) Pitting None Skin Integrity Hypohydrosis Area Temperature Normal Sensation Intact Measurement (obtained circumferential measurements at wrist crease, elbow crease, 10 cm above and 10 cm below elbow crease. Provided measurements to patient.) Recommendation Lymphedema Recommendation Skin care;Decongestive exercises;Lymphedema precautions Wounds: skin intact L UE. surgical incision present. Stage: latent Treatment Provided: education - see below Compression: none. Education/Self Care: Educated patient on risk reduction of developing lymphedema s/p lymph node removal surgery. Handout included healthy lifestyle information, skin care, infection education, and avoiding possible triggers (including injury/trauma, limb constriction, extreme temperatures and prolonged inactivity). Pt and family asked appropriate questions. Assessment/Prognosis: Pt presents s/p lymph node removal surgery, provided education as stated above. No further skilled PT needs identified. Lymphedema Recommendations: Seek outpatient Lymphedema Therapy in future if needed. Frequency: 0 Plan: DC Lymphedema Therapy. Please call Rehabilitation department with questions at [phone]. Refer to Vital signs flowsheet, Care plan activity and Education activity for additional documentation. If this is the last therapy visit, this serves as the discharge summary. MARCO BrizuelaT, CLT 10/12/23 UTER OPERATIONS ANALYST * Rox Mcnulty MD - 10/12/2023 9:12 AM CST Hepatobiliary Surgery Daily Progress HPI: Ms. Guevara Baker is a 78 y.o. year old admitted for Metastatic melanoma (HCC) Length of Hospitalization: 0 Post Procedure Day: 10/11/2023 Procedure(s): LEFT AXILLARY LYMPH NODE DISSECTION SUBJECTIVE/ INTERVAL HISTORY S/p left axillary lymph node dissection 10/11 NAEON Drain 0cc out Patient denies uncontrolled pain, nausea, fever, shortness of breath. Objective Physical Exam General: No acute distress, resting comfortably HEENT: No NGT or Nasal cannula Pulmonary: Nonlabored breathing, clear to auscultation bilaterally Abdomen: Soft, nontender, nondistended. Drain: Left axilla without current output Extremities: no edema, wearing SCD's, pedal pulses 2+ bilaterally, Incision in left axilla closed with dermabond Current Facility-Administered Medications: acetaminophen (TYLENOL) tablet 1,000 mg, 1,000 mg, oral, Q6H MARILEE, 1,000 mg at 10/12/23 0553 enoxaparin (LOVENOX) syringe 40 mg, 40 mg, subcutaneous, Daily-2100, 40 mg at 10/11/232057 gabapentin (NEURONTIN) capsule 200 mg, 200 mg, oral, TID, 200 mg at 10/12/23 0836 lidocaine (ASPERCREME) 4 % patch 1 patch, 1 patch, transdermal, Q24H, 1 patch at 10/11/23 1139 metoprolol XL (TOPROL-XL) extended release tablet 50 mg, 50 mg, oral, Daily, 50 mg at 10/12/23 0836 ondansetron ODT (ZOFRAN-ODT) disintegrating tablet 4 mg, 4 mg, oral, Q4H PRN oxyCODONE (ROXICODONE) tablet 5 mg, 5 mg, oral, Q4H PRN polyethylene glycol (MIRALAX) packet 17 g, 17 g, oral, Daily rosuvastatin (CRESTOR) tablet 5 mg, 5 mg, oral, Daily, 5 mg at 10/12/23 0836 senna-docusate (PERICOLACE) 8.6-50 mg per tablet 1 tablet, 1 tablet, oral, BID, 1 tablet at 10/12/23 0836 Lab/Radiology/Diagnostic Review: Laboratory studies from the past 24 hours were reviewed and significant for Lab Results Component Value Date WBC 7.9 09/19/2023 WBC 8.8 08/29/2023 WBC 8.3 08/08/2023 Lab Results Component Value Date HGB 13.3 09/19/2023 HGB 13.6 08/29/2023 HGB 13.8 08/08/2023 Lab Results Component Value Date HCT 41.0 09/19/2023 HCT 41.5 08/29/2023 HCT 41.4 08/08/2023 Lab Results Component Value Date CREATININE 0.87 09/19/2023 CREATININE 0.57 (L) 08/29/2023 CREATININE 0.65 08/08/2023 Lab Results Component Value Date BILITOT 0.3 09/19/2023 BILITOT 0.4 08/29/2023 BILITOT 0.5 08/08/2023 Lab Results Component Value Date ALKPHOS 49 09/19/2023 ALKPHOS 53 08/29/2023 ALKPHOS 56 08/08/2023 Lab Results Component Value Date AST 23 09/19/2023 AST 27 08/29/2023 AST 27 08/08/2023 Lab Results Component Value Date ALT 22 09/19/2023 ALT 25 08/29/2023 ALT 25 08/08/2023 Recent Radiology studies were reviewed and significant for: NA Vitals: 24hr Min/Max: Temp Min: 36.2 ??C (97.2 ??F) Max: 36.6 ??C (97.9 ??F) Pulse Min: 54 Max: 89 BP Min: 107/38 Max: 138/58 Resp Min: 15 Max: 23 SpO2 Min: 91 % Max: 100 % Most Recent: Vitals: 10/12/2330 BP: 122/51 Pulse: 61 Resp: 16 Temp: 36.4 ??C (97.5 ??F) SpO2: 94% I/O last 2 completed shifts: In: 800 [P.O.:500; I.V.:300] Out: 825 [Urine:800; Blood:25] I/O this shift: In: - Out: 350 [Urine:350] Recent Interventions: L axillary lymph node dissection 10/11 Assessment/Plan 1. Metastatic melanoma (HCC) - Drain teaching - OT for lymphedema teaching - D/c home today with drain Rox Mcnulty MD 49:12 AM Cosigned by Landon Wright MD at 10/12/2023 9:30 AM COMPUTER OPERATIONS ANALYST UTER OPERATIONS ANALYST UTER OPERATIONS ANALYST * Raegan Daniel PA - 10/11/2023 11:12 AM CST HPB SURGERY POSTOPERATIVE CHECK SUBJECTIVE: Ms. Guevara Baker is a 78 y.o. female who underwent left axillary lymph node dissection for Metastatic melanoma (HCC) Resting comfortably, pain well controlled with current regimen. Denies nausea/vomiting, chest pain,shortness of breath. Hemodynamically stable with no complaints at this time. Past Medical History: Diagnosis Date Melanoma (HCC) Motion sickness Old myocardial infarction Past myocardial infarction - (Added by TW Conv) Personal history of other diseases of the circulatory system History of hypertension - (Added by TW Conv) OBJECTIVE: Vitals: 10/11/23 1100 BP: 123/58 Pulse: 60 Resp: 17 Temp: 36.5 ??C (97.7 ??F) SpO2: 95% General: No acute distress, resting comfortably HEENT: No NGT or Nasal cannula Pulmonary: Nonlabored breathing, clear to auscultation bilaterally Abdomen: Soft, nontender, nondistended. Drain: Left axilla without current output Extremities: no edema, wearing SCD's, pedal pulses 2+ bilaterally, Incision in left axilla closed with dermabond PLAN: Neuro/Pain: multimodal regimen including scheduled APAP, gabapentin, lidocaine patches and PRN flexeril and oxycodone CV:Ok to resume appropriate antihypertensives/ cardioactive medications Resp: IS 10x/ h. GI: anti emetics PRN. Monitor incision, drain output Diet: regular Renal/ IVF: mIV Endo: SSI ID: no antibiotics indicated PPX: SCD's, ppx enoxaparin Please call with any questions regarding the care of this patient. NAVIN Lopes Hepatobiliary Surgery Service phone: [phone] UTER OPERATIONS ANALYST documented in this encounter H&P Notes * Lnadon Wright MD - 10/11/2023 6:34 AM CST I have reviewed the H&P, examined the patient, and endorse the findings as written. Plan of Care : Based on the above findings, I consider Guevara Baker to be an acceptable riskfor : Procedure(s): LEFT AXILLARY LYMPH NODE DISSECTION UTER OPERATIONS ANALYST Source Note - Marizol Blancas NP - 10/04/2023 9:42 AM COMPUTER OPERATIONS ANALYST Images from the original note were not included. Center for Preoperative Assessment and Planning Preoperative Evaluation Record Evaluation type/location: TPAP from [facility] Planned procedure site: [facility] (Pods 2/3/5/PACKER INSPECTOR) Date: 10/04/23 NOTE: This note represents a preoperative evaluation initiated via telephone interview. NO PHYSICALEXAM was performed at the time of initial assessment. A physical exam may be added to this note anddocumented below. Anesthesia Evaluation Guevara Baker is a 78 y.o. 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 Neurological Pertinent negatives: neuromuscular disease; CVA/stroke and TIA Comments: 08/24/2023 Dr. WhippleASSESSMENT AND PLAN: Ms. Baker is an 78-year-old [...] + Hyperlipidemia (on statin) + CAD + WY Number of WY's: 1. Date of last WY: 2002. + Unknown stent(s) type - Prior [...] infectious disease Comments: Dr. Bates oncologist Assessment/Plan Guevara Baker is 78 y.o. woman with metastatic melanoma presenting for ongoing recommendations for therapy. [place]us with NRAS mutation. Melanoma - biopsy confirmed L axillary met. Continue with neoadjuvant pembro, cycle 3 today. Restaging PET prior to planned surgery with Dr. Wright 10/11. 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 female who [...] provided by telephone and electronically sent via [employer]. Patient verbalized understanding of instructions. Blood bank [...] therapy when feasible in the postoperative period. [facility] staff message sent to surgeon's office. Please call the CPAP clinic ([phone]) withany questions. Preoperative evaluation performed by Marizol Blancas NP on 10/04/23 at 9:51 AM TPAP assessment complete . Patient Active Problem List Diagnosis Date Noted Metastatic melanoma (HCC) 08/31/2023 Pain in right foot 08/24/2023 Benign essential HTN 07/18/2023 Dyslipidemia 07/18/2023 Malignant melanoma of unknown origin (HCC) 07/18/2023 Melanoma of axilla (HCC) 07/18/2023 Primary osteoarthritis of both knees 09/28/2016 Atherosclerosis of [place] coronary artery of [place] heart without angina pectoris 03/04/2016 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 Past Medical History: Diagnosis Date Melanoma (HCC) Motion sickness Old myocardial infarction Past myocardial infarction - (Added by TW Conv) Personal history of other diseases of the circulatory system History of hypertension - (Added by TW Conv) Past Surgical History: Procedure Laterality Date APPENDECTOMY As a child CARDIAC STENT PLACEMENT 2002 1 stent placed CHOLECYSTECTOMY 2002 COLON SURGERY 2002 COLONOSCOPY 2007 HYSTERECTOMY 1987 INCONTINENCE SURGERY 07/2008 vaginal sling TONSILLECTOMY 1973 OB History No obstetric history on file. No Known Allergies Med List Status: Nurse Complete Set By: Rosy Curry RN at 09/13/2023 9:45 AM Taking? Last Dose Start Date End Date Provider clopidogreL (PLAVIX) 75 mg tablet 09/13/2023 06/26/23 -- Viridiana Ochoa MD enalapril (VASOTEC) 10 mg tablet 09/13/2023 -- -- Viridiana Ochoa MD ergocalciferol, vitamin D2, 10 mcg (400 unit) tablet 09/13/2023 10/09/09 -- Viridiana Ochoa MD esomeprazole DR (NexIUM) 40 mg capsule Past Month 05/08/08 -- Viridiana Ochoa MD furosemide (LASIX) 20 mg tablet Past Month -- -- Viridiana Ochoa MD hydroCHLOROthiazide (HYDRODIURIL) 25 mg tablet 09/13/2023 -- -- Viridiana Ochoa MD meloxicam (MOBIC) 7.5 mg tablet Past Month -- -- Viridiana Ochoa MD metoprolol XL (TOPROL-XL) 50 mg extended [...] 09/19/2023: 0.87 mg/dL Sandrita index score: 95 UTER OPERATIONS ANALYST UTER OPERATIONS ANALYST documented in this encounter Nursing Notes * Darnell Tuttle RN - 10/11/2023 10:57 AM CST Awake, alert, pain free, no nausea. Report phoned to Elly DAMICO [phone] UTER OPERATIONS ANALYST documented in this encounter Miscellaneous Notes * Plan of Care - Elly Infante RN - 10/12/2023 10:15 AM CST Goals: Clinical Goals for the Shift: Monitor Vs/I&Os, pain management, prep for possible DC Summary: Problem: Health Behavior: Goal: Understanding of discharge needs will improve Outcome: Progressing Problem: Activity: Goal: Risk for activity intolerance will decrease Outcome: Progressing Problem: Lack of Knowledge: Goal: Knowledge of diagnostic tests will improve Outcome: Progressing Goal: Knowledge of disease or condition will improve Outcome: Progressing Goal: Knowledge of safety precautions will improve Outcome: Progressing Goal: Knowledge of the prescribed therapeutic regimen will improve Outcome: Progressing Problem: Health Behavior: Goal: Ability to state signs and symptoms to report to health care provider will improve Outcome: Progressing Problem: Physical Regulation: Goal: Ability to maintain clinical measurements within normal limits will improve Outcome: Progressing Problem: Infection Risk: Goal: Will remain free from infection Outcome: Progressing Problem: Safety: Goal: Ability to remain free from injury will improve Outcome: Progressing Goal: Will remain free from falls Outcome: Progressing Problem: Self-Care: Goal: Ability to participate in self-care as condition permits will improve Outcome: Progressing Problem: Sensory: Goal: Pain level will decrease Outcome: Progressing Goal: Ability to develop a pain control plan will improve Outcome: Progressing Problem: Skin Integrity: Goal: Risk for impaired skin integrity will decrease Outcome: Progressing Problem: Tissue Perfusion: Goal: Risk factors for ineffective tissue perfusion will decrease Outcome: Progressing Problem: Lack of Knowledge: Goal: Ability to develop a pain control plan will improve Outcome: Progressing Goal: Ability to identify pain intensity on a pain scale and rate it consistently will improve Outcome: Progressing Goal: Ability to notify healthcare provider of pain before it becomes unmanageable or unbearable will improve Outcome: Progressing Problem: Medication: Goal: Satisfaction with pain management regimen will improve Outcome: Progressing Problem: Sensory: Goal: Ability to identify factors that increase the pain will improve Outcome: Progressing Goal: Pain level will decrease Outcome: Progressing UTER OPERATIONS ANALYST * Initial Assessments - Beatrice Rehman RN - 10/12/2023 9:52 AM COMPUTER OPERATIONS ANALYST CM Initial Assessment Interview Note Information Obtained From: Patient (10/12/23 0800) Admission Source: Non Health Care Facility Point of Origin Impression: Patient admitted for L axillary lymph node dissection s/p metastatic melanoma Plan Includes: Patient anticipated discharge home when medically stable. Patient may have home health care needs pending PT/OT recs. Patient does not have a preference for a home health agency and a list of agencies can/will be provided if needed. Patient has family for home support and transportation. Case Management will continue to follow for anticipated discharge needs. Primary Source of Transportation: none Does the patient need discharge transport arranged?: No (10/12/23799) Health Insurance Coverage: Medicare A/B, [place] Prescription Coverage: yes Pharmacy: [id number] [address] [address] Primary Care Provider: Becky Conroy NP Prior to Admission: Functional Status: Independent with ADLs Primary Caregiver: Self Support System: Spouse/Significant Other Home Care Services: No Outpatient Services: No Durable Medical Equipment: None Living Arrangements: Children (Daughter) Type of Residence: Private residence Steps in home?: No steps inside or outside (10/12/23799) SDOH: Transportation: Financial Resource: Housing: Utilities: Social Connections: Food Insecurity: Alcohol Use: PHQ Screening Potential discharge needs include: Patient does not feel she need HH RN visits with drain. Dialysis: none Behavioral Health Services: Behavioral Health Services: No (10/12/23799) Patient expects to be Discharged to: Private residence, (10/12/23799) Additional Information: Role of CM explained to patient. CM verified address, phone number, insurance and emergency contact from facesheet with patient/family. Patient lives at home with her daughter and is IADL's at baseline. Patient's Identified Problem/Goal Problem: Ensure acute medical needs are met and that patient has a safe discharge plan. Goal: Secure a discharge plan that patient/family are agreeable with and ensure patient has continuum of care. Case management will follow for discharge planning and send referrals as needed. Goals include: To assure continuity of care, To maximize coping skills, To assure patient is in a safe environment and To assure access to community resources. Plan includes: 1. Collaboration with patient, MD, direct care nurse, Quiller Tender, and other members of the health care team to assure needed interventions completed. 2. Return patient to optimal level of self-care post discharge. 3. Director Of Global Sales will follow for Discharge Planning - interventions as needed 4. Anticipated level of care at discharge 5. Planned Discharge Disposition Based on a comprehensive family assessment, assistance with instrumental activities of daily livingafter discharge will be provided by daughter Through the course of our work I determined that the patient and family possesses the skill and ability to provide and monitor the care of the patient when he or she returns home. Patient and family has the capacity to provide/monitor/arrange for the care of the patient. Finally, we determined that patient and family has the knowledge of available resources and that combining them with their existing resources will suffice to sustain and care for the patient when he or she returns home. The treatment team is aware of this information. All are in agreement with the aftercare plan. Beatrice Rehman RN UTER OPERATIONS ANALYST * Plan of Care - Magalis Lima RN - 10/11/2023 9:30 PM COMPUTER OPERATIONS ANALYST Goals: Clinical Goals for the Shift: monitor labs and vitals, pain control, i&o's, drain care, safe transfers, promote rest Summary: Problem: Health Behavior: Goal: Understanding of discharge needs will improve Outcome: Progressing Problem: Activity: Goal: Risk for activity intolerance will decrease Outcome: Progressing Problem: Lack of Knowledge: Goal: Knowledge of diagnostic tests will improve Outcome: Progressing Goal: Knowledge of disease or condition will improve Outcome: Progressing Goal: Knowledge of safety precautions will improve Outcome: Progressing Goal: Knowledge of the prescribed therapeutic regimen will improve Outcome: Progressing Problem: Health Behavior: Goal: Ability to state signs and symptoms to report to health care provider will improve Outcome: Progressing Problem: Physical Regulation: Goal: Ability to maintain clinical measurements within normal limits will improve Outcome: Progressing Problem: Infection Risk: Goal: Will remain free from infection Outcome: Progressing Problem: Safety: Goal: Ability to remain free from injury will improve Outcome: Progressing Goal: Will remain free from falls Outcome: Progressing Problem: Self-Care: Goal: Ability to participate in self-care as condition permits will improve Outcome: Progressing Problem: Sensory: Goal: Pain level will decrease Outcome: Progressing Goal: Ability to develop a pain control plan will improve Outcome: Progressing Problem: Skin Integrity: Goal: Risk for impaired skin integrity will decrease Outcome: Progressing Problem: Tissue Perfusion: Goal: Risk factors for ineffective tissue perfusion will decrease Outcome: Progressing Problem: Lack of Knowledge: Goal: Ability to develop a pain control plan will improve Outcome: Progressing Goal: Ability to identify pain intensity on a pain scale and rate it consistently will improve Outcome: Progressing Goal: Ability to notify healthcare provider of pain before it becomes unmanageable or unbearable will improve Outcome: Progressing Problem: Medication: Goal: Satisfaction with pain management regimen will improve Outcome: Progressing Problem: Sensory: Goal: Ability to identify factors that increase the pain will improve Outcome: Progressing Goal: Pain level will decrease Outcome: Progressing UTER OPERATIONS ANALYST * Plan of Lexa - Elly Infante RN - 10/11/2023 11:09 AM CST Goals: [place] to unit, pain management, monitor post op vitals Summary: Problem: Health Behavior: Goal: Understanding of discharge needs will improve Outcome: Progressing Problem: Activity: Goal: Risk for activity intolerance will decrease Outcome: Progressing Problem: Lack of Knowledge: Goal: Knowledge of diagnostic tests will improve Outcome: Progressing Goal: Knowledge of disease or condition will improve Outcome: Progressing Goal: Knowledge of safety precautions will improve Outcome: Progressing Goal: Knowledge of the prescribed therapeutic regimen will improve Outcome: Progressing Problem: Health Behavior: Goal: Ability to state signs and symptoms to report to health care provider will improve Outcome: Progressing Problem: Physical Regulation: Goal: Ability to maintain clinical measurements within normal limits will improve Outcome: Progressing Problem: Infection Risk: Goal: Will remain free from infection Outcome: Progressing Problem: Safety: Goal: Ability to remain free from injury will improve Outcome: Progressing Goal: Will remain free from falls Outcome: Progressing Problem: Self-Care: Goal: Ability to participate in self-care as condition permits will improve Outcome: Progressing Problem: Sensory: Goal: Pain level will decrease Outcome: Progressing Goal: Ability to develop a pain control plan will improve Outcome: Progressing Problem: Skin Integrity: Goal: Risk for impaired skin integrity will decrease Outcome: Progressing Problem: Tissue Perfusion: Goal: Risk factors for ineffective tissue perfusion will decrease Outcome: Progressing Problem: Lack of Knowledge: Goal: Ability to develop a pain control plan will improve Outcome: Progressing Goal: Ability to identify pain intensity on a pain scale and rate it consistently will improve Outcome: Progressing Goal: Ability to notify healthcare provider of pain before it becomes unmanageable or unbearable will improve Outcome: Progressing Problem: Medication: Goal: Satisfaction with pain management regimen will improve Outcome: Progressing Problem: Sensory: Goal: Ability to identify factors that increase the pain will improve Outcome: Progressing Goal: Pain level will decrease Outcome: Progressing UTER OPERATIONS ANALYST * Op Note - Landon Wright MD - 10/11/2023 8:52 AM CST Images from the original note were not included. 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 SURGEON: Landon Wright M.D. FIRST NEURODIAGNOSTIC TECH: Raegan Daniel PA-C ANESTHESIA: General endotracheal. NAME OF OPERATION: Left axillary lymph node dissection, levels 1-3. INDICATIONS FOR PROCEDURE: Ms. Baker is a 78 y.o. female with melanoma of unknown primary presenting with left axillary adenopathy who was undergoing immunotherapy, having just received the 1st of 3 planned cycles. We have discussed her case extensively, and I agree with plans for restaging after the 3rd cycle and consideration of surgery consisting of a left axillary lymph node dissection. I would like her to undergo cardiology clearance in the meantime and would plan to hold her plavix around the time of surgery. When I saw her in clinic, we discussed my recommended treatment consisting of left lymph node dissection, including the risks, benefits, and alternatives to surgical treatment. Specifically, we discussed the risk of wound-related complications (infection, seroma, and chronic, non-healing wounds), possible nerve damage and numbness of surrounding skin, and the risk of lymphedema after lymph node dissection/removal. I told the patient this can sometimes be debilitating and incurable. We discussedthe management of these complications, consisting of treatment with antibiotics, needle-drainage offluid collections, and/or possible opening of an infected wound with resultant closure via secondary intention (packing, Wound Vac, etc.). We also discussed risks related to anesthesia. We discussed the expected post-operative course and the follow-up involved. I mitchel several pictures and provided Ms. Baker with literature and several websites to obtain more information (ACS, NCI, ASCO). Afterour discussion, the patient decided to proceed with surgery. Informed consent was obtained in clinic and she presented on the day of surgery. OPERATIVE FINDINGS: Ms. Baker had left axillary lymph node disease consisting of 1-2 clinically involved nodes. We performed a complete levels 1, 2 and 3 left axillary lymph node dissection. At the conclusion of the case all of the soft tissues inferior to the axillary vein, posterior to the pectoralis major and minor muscle, superior to the insertion of the thoracodorsal bundle into the latissimus muscle, medialto the latissimus muscle, and lateral to the serratus or chest wall muscle had been dissected free and included with the specimen. Thus, a complete levels 1, 2 and 3 right axillary lymph node dissection. The long thoracic and thoracodorsal nerves were preserved. A drain was left in the space. Ms. Baker tolerated the procedure well. DESCRIPTION OF PROCEDURE: Ms. Baker was taken to the operating room. A timeout procedure was performed per protocol. She was identified by name and date of , and agreed to the aforementioned procedure. At this time, she was transferred to the operating room table. General endotracheal anesthesia was administered. The left axilla was prepped and draped in usual sterile fashion with chlorhexidine based prep solution. An incision was then made just inferior to the left axillary hairline between the pectoralis muscle and the latissimus muscle. This was carried down through the subcutaneous tissues using electrocautery. Skin flaps were raised circumferentially and a self retaining retractor was placed. We began the operation by identifying the lateral border of the pectoralis muscle. A handheld retractor was placed under this. We dissected under the pectoralis major and minor muscles to clear all of the lymphnodes in this space using the LigaSure device. The median pectoral bundle was divided and all the lindsey tissue medially was swept laterally to be included with the specimen using the LigaSure device. At the superior aspect of this we identified the medial border of the axillary vein. We continued the dissection along the anterior surface of the axillary vein out to the latissimus muscle using electrocautery and the LigaSure device. At least two clinically involved nodes were seen, the largest measuring approximately 2 cm. We then transitioned to the dissection inferior along the latissimus muscle and up to the chest wall using the LigaSure device and electrocautery. We then continued our dissection inferior to the axillary vein. Multiple tributaries were ligated and divided between clips and ties. Ultimately, we were able to identify the long thoracic nerve and the thoracodorsal bundle and all of the soft tissues between these were swept medially and inferiorly to be included with thespecimen and were divided using the LigaSure device, taking care to protect and preserve both nerves and neurovascular bundles. We continued the dissection along the thoracodorsal bundle sweeping allthe bulky lindsey disease up with us. The dissection was done using the LigaSure clips and ties. Ultimately the specimen was then reflected laterally and dissected free along the latissimus fascia using electrocautery. This was done down to the level of the insertion of the thoracodorsal bundle into the latissimus muscle. The specimen was then excised and passed off. Several other node-bearing structures along the thoracodorsal bundle and long thoracic nerves were bluntly dissected free and included with the specimen. At the conclusion of this, all the soft tissues posterior to the pectoralis major and minor musclesinferior to the axillary vein, superior to the insertion of the thoracodorsal bundle and the latissimus muscle, medial to the latissimus muscle and lateral to the serratus or chest wall muscle had been included with the specimen. Thus levels 1, 2 and 3 left axillary lymph node dissection. This was a complete gross resection of all disease. The wound was then copiously irrigated. Hemostasis was achieved with clips, ties and the LigaSure device. The long thoracic nerve and thoracodorsal nerve hadexcellent function. A 19-Frisian SHEILA drain was placed through a separate stab incision inferior to the main incision and secured to the skin using two 3-0 nylon sutures. Co-Seal was placed as a topicalhemostatic and lymphostatic agent along the resection bed. The sponge, needle and instrument countswere correct x2. The wound was then closed with multiple interrupted 3-0 Vicryl dermal sutures and running 4-0 Monocryl subcuticular suture. The wound was anesthetized with 0.5% bupivacaine and surgic al glue dressing was applied. Ms. Baker tolerated the procedure well, was extubated in the operating room, and transferred to the recovery room in a stable condition. ANTIBIOTICS: Cefazolin was administered 15 minutes prior to skin incision, maintained throughout the case, and discontinued after the case. DVT PROPHYLAXIS: Sequential compression devices were placed on the bilateral lower extremities prior to the induction of general endotracheal anesthesia and maintained throughout the case. In addition, 5,000 units ofsubcutaneous heparin was administered just after the induction of anesthesia. SPECIMENS REMOVED: Left axillary lymph node dissection (levels 1, 2, 3) to pathology. ESTIMATED BLOOD LOSS: 25 mL INTRAVENOUS FLUIDS: 300 mL SPONGE/INSTRUMENT/NEEDLE COUNTS: Correct x 2 at the end of the case. CONDITION ON DISCHARGE FROM OPERATING ROOM: Stable. ATTESTATION OF PRESENCE: Landon Guerrero, the attending surgeon was present for the entire procedure; that is, from the induction of general anesthesia through the skin closure. I performed this operation with the assistance of our PA, Raegan Daniel, as there was no qualified resident available to assist with this case. An talent assistant was medically necessary to perform the operation in a safe and effective fashion. Landon Wright M.D., F.A.C.S. Chief, Section of Surgical Oncology [facility] Alire[facility] L[facility] - voice - fax [facility] Mailing Address: Overnight Mailing Address: [address] [place] [address] [address] [place] [address] Health, [address] [place], [place] [address] [place], [place] [address] UTER OPERATIONS ANALYST * Pre-Procedure Instructions - Marizol Blancas NP - 10/04/2023 9:05 AM CST Center for Preoperative Assessment and Planning CPAP Clinic Location: [facility] - CPAP The night before your surgery: * Do not eat anything after midnight the night before your procedure. and * Do not smoke or use tobacco products after midnight the night before surgery. It is best to stop smoking now to improve your health. The morning of your surgery: * You may have clear liquids on your surgery day. You must stop drinking two hours before you arrive to the surgery facility. Acceptable clear liquids include water, clear sports drinks, black coffee, or clear soda. DO NOT drink any milk, creamer, or alcohol. * Your surgeon's office may have provided additional instructions or restrictions. Please follow those instructions. * You may brush your teeth and rinse your mouth out. * Do not glue your dentures. * Do not wear jewelry, body piercings, makeup, hairpins, false eyelashes or contact lenses to the hospital. * Leave any valuables at home or with your family. * If you have an implantable device with a remote, bring the remote with you on the day of surgery. * If you use home oxygen, bring your portable oxygen tank with you on the day of surgery * If you are going to be admitted after surgery at [facility], COVID testing may be performed on the day of surgery, even if you are up to date on your COVID-19 vaccine. * If having surgery at [facility], you may want to bring a credit card if you want to use our Mobile Pharmacy for your discharge medications. Mobile pharmacy is not available at [facility], the Orthopedic Center, or the [place] for [facility]. Outpatient Surgery: * You must have a responsible adult drive you home and stay with you for 24 hours after your surgery * You cannot be alone at home or in a hotel * Please call your surgeon's office if you do not have someone to drive you home and/or stay with you after surgery * Please bring any items you may need to spend the night in the hospital. Sometimes patients need to be cared for in the hospital overnight. Instructions For Your Medications: Pre-Surgery Instructions: Medication Instructions clopidogreL (PLAVIX) 75 mg tablet Per surgeon instructions enalapril (VASOTEC) 10 mg tablet Don't take on day of surgery ergocalciferol, vitamin D2, 10 mcg (400 unit) tablet Don't take on day of surgery esomeprazole DR (NexIUM) 40 mg capsule Take on day of surgery if needed furosemide (LASIX) 20 mg tablet Don't take on day of surgery hydroCHLOROthiazide (HYDRODIURIL) 25 mg tablet Don't take on day of surgery meloxicam (MOBIC) 7.5 mg tablet Stop taking 5 days prior to surgery metoprolol XL (TOPROL-XL) 50 mg extended release tablet Take morning of surgery multivitamin tablet Don't take on day of surgery mupirocin (BACTROBAN) 2 % ointment Don't take on day of surgery omega-3 fatty acids 500 mg capsule Don't take on day of surgery potassium chloride ER 10 mEq CR tablet Don't take on day of surgery prochlorperazine (Compazine) 10 mg tablet Take on day of surgery if needed rosuvastatin (CRESTOR) 10 mg tablet Take morning of surgery triamcinolone (KENALOG) 0.1 % cream Don't take on day of surgery zinc gluconate 50 mg tablet Don't take on day of surgery Your surgeon will tell you IF YOU SHOULD STOP the following medications and WHEN TO STOP taking them. Do not stop taking them on your own without being told to do so: Plavix General Instructions For Medications: * Stop all of these medications 5 days prior to your surgery: excedrin, motrin, advil, ibuprofen, aleve, naproxen, meloxicam, celebrex, celecoxib. For medications that you are instructed to take on the morning of surgery, take the medications with a few sips of water. Stop all of these medications 7-14 days prior to your surgery: Vitamin E, Herbal medicines, Diet Pills If you have pain, you may take tylenol (acetaminophen). Do not take more than 6 tablets or 3000 mg (3 g) within a 24 period. Call your surgeon and the CPAP clinic if any of the following happens before surgery: Any changes in your health You have a fever You have any signs of an infection (chest, urinary tract or tooth) You have been to the Emergency Room or were in the hospital You have started taking any new medications You have questions about a bowel prep or special diet before surgery You have symptoms of COVID-19 such as a new or worsening cough, shortness of breath, fever, body aches, loss of taste or smell, diarrhea or vomiting, or sore throat. You have a household contact with COVID-19. You test positive for COVID-19. UTER OPERATIONS ANALYST * Perioperative Nursing Note - Rosy Curry RN - 09/13/2023 9:48 AM CST [facility] Perioperative Nursing Note Telephone Preoperative Evaluation ([facility]) - TELEPHONE ONLY, NO PHYSICAL EXAM Date: 09/13/23 This assessment was completed with the patient. Vitals: 09/13/23 0935 Weight: 68 kg (150 lb) Height: 157.5 cm (5' 2 ) CHEST CIRCUMFERENCE: N/A Social History Tobacco Use Smoking Status Former Packs/day: .5 Types: Cigarettes Start date: 1979 Quit date: 1988 Years since quittin.0 Passive exposure: Never Smokeless Tobacco Never Substance and Sexual Activity Drug Use Never Alcohol Use Q1: How often do you have a drink containing alcohol?: Never Q2: How many drinks containing alcohol do you have on a typical day when you are drinking?: Patientdoes not drink Q3: How often do you have six or more drinks on one occasion?: Never Outpatient Medications Marked as Taking for the 10/11/23 encounter (Hospital Encounter) Medication Sig Dispense Refill clopidogreL (PLAVIX) 75 mg tablet Take 1 tablet (75 mg total) by mouth every morning enalapril (VASOTEC) 10 mg tablet Take 1 tablet (10 mg total) by mouth every morning ergocalciferol, vitamin D2, 10 mcg (400 unit) tablet Take 1 tablet by mouth every morning esomeprazole DR (NexIUM) 40 mg capsule Take 1 capsule (40 mg total) by mouth as needed furosemide (LASIX) 20 mg tablet Take 1 tablet (20 mg total) by mouth as needed hydroCHLOROthiazide (HYDRODIURIL) 25 mg tablet Take 1 tablet (25 mg total) by mouth every morning meloxicam (MOBIC) 7.5 mg tablet Take 1 tablet (7.5 mg total) by mouth as needed for pain metoprolol XL (TOPROL-XL) 50 mg extended release tablet Take 1 tablet (50 mg total) by mouth every morning multivitamin tablet Take 1 tablet by mouth every morning mupirocin (BACTROBAN) 2 % ointment Apply topically as needed omega-3 fatty acids 500 mg capsule Take 1 tablet by mouth every morning potassium chloride ER 10 mEq CR tablet Take 1 tablet/capsule (10 mEq total) by mouth every morning prochlorperazine (Compazine) 10 mg tablet Take 1 tablet (10 mg total) by mouth every 6 (six) hours as needed for nausea or vomiting (Patient taking differently: Take 1 tablet (10 mg total) by mouth as needed for nausea or vomiting) 30 tablet 3 rosuvastatin (CRESTOR) 10 mg tablet Take 0.5 tablets (5 mg total) by mouth every morning 0.5 tablet triamcinolone (KENALOG) 0.1 % cream Apply topically 2 (two) times a day (Patient taking differently: Apply topically as needed for irritation) 80 g 3 zinc gluconate 50 mg tablet Take 1 tablet (50 mg total) by mouth every morning Implants Type Not Specified Cardiac Stent X 1 - Implanted Heart As of 09/13/2023 Status: Implanted SKIN Piercings Remaining: Yes Wound (LDAs) Type of Wound (LDA): (patient denies) SCREENINGS Sandrita index score: 95 PATIENT CARE PLANNING Advance Directives (For Healthcare) Have you reviewed your Advance Directive and is it valid for this stay?: Not applicable Advance Directive: Patient does not have advance directive, Patient refused information Information Provided on Healthcare Directives: No Communication/Investment Specialist Needs Communication Barriers: Visual Communication Needs: Glasses Assistive Devices/DME: Dentures partial, Eyeglasses Hearing - Right Ear: Functional Hearing - Left Ear: Functional Discharge Planning Type of Residence: Private residence Living Arrangements: Children Support Systems: Children Patient expects to be discharged to:: Private residence (Daughter, Hallie will be otr truck driver after surgery.) EEO OFFICER NO ADDITIONAL COMMENTS/ FOLLOW UP UTER OPERATIONS ANALYST UTER OPERATIONS ANALYST * Pre-Procedure Instructions - Rosy Curry RN - 09/13/2023 9:47 AM CST [facility] ([facility]) PRE-SURGICAL NURSING INSTRUCTIONS Telephone Assessment General Information Discussed with Patient: Surgery location provided to patient. Arrival time and surgical time will be provided to the patient by their surgeon. You should wear clothing that is clean, loose, comfortable and easy to get in and out of on the dayof surgery. You should remove nail coverings, artificial nails and nail hong konger prior to the day of surgery. You should leave your valuables and any jewelry at home. No metal or piercings are allowed in the operating room. You should bring your insurance card, a photo ID (example: Web Content Executive's License) and a method of payment for any insurance copay, deductible or copay for discharge medications. You should bring a complete, up-to-date, list of all your medications on the day of surgery, including any over the counter medications or supplements you may take. Please note on your medication list, the last date & time you took each medication. The healthcare team, on the day of surgery, will ask for this information. You should bring your Advanced Directive and/or Living Will with you on the day of surgery if you have not verified a copy is already in your Epic Chart. If you are having surgery at [facility], please arrive on the day of surgery with the name and phone number of your local 24 hour pharmacy. Due to evening discharges, your routine pharmacy may be closed. In order to obtain your prescriptions that evening, your surgeon may need to send prescriptions to this pharmacy or have you take prescriptions to this pharmacy when you are discharged. Without this information, you may not be able to obtain your prescriptions that evening. A Guide for Patients Having Surgery: Your Pathway to Excellent Care OUR GOAL IS TO PROVIDE YOU WITH EXCELLENT CARE Use this guide to learn about what you can do before, during and after surgery to help your recovery. You are the most important person on your health care team. By becoming informed and involved, you can contribute to the success of your surgery. If your surgeon's directions are different than those in this guide, talk with your nurse or surgeon to confirm the information. It is important that you understand how to take care of yourself at home after surgery. Be sure to bring this guide with you on the day of surgery and take it home with you after surgery. Write down questions for your nurse or surgeon on the last page of this booklet. Important pages to be reviewed BEFORE surgery: Page 1: QR codes for Surgery Center maps Page 3: Types of Anesthesia Page 5: Tips for the day & night before surgery Page 6: When to stop eating BEFORE surgery and examples of clear liquids Page 7-10: Preventing Infection: Chlorhexidine Gluconate (CHG) Bathing Instructions You may access A Guide for Patients Having Surgery: Your Pathway to Excellent Care by the followinglink: [email or web address] How To Prepare Your Skin For Surgery Below is the Pre-Surgical Bathing Protocol you should follow for your surgery. If your surgeon provides you different bathing instructions, please follow your surgeon's orders. 2 Day CHG Bathing Protocol (no nasal ointment) PREVENTING INFECTION (DECOLONIZATION): Decolonization is the use of a topical antiseptic soap and sometimes a nasal ointment to remove bacteria (germs) from the skin's surface. Antiseptic soap: Chlorhexidine gluconate or CHG (brand name: Hibiclens??) Before surgery, your entire body must be thoroughly cleaned. CHG helps to reduce the bacteria on your skin. You may be given one or more bottles of CHG or you may be asked to obtain from your preferred pharmacy. Be sure to ask your pharmacist if you need help finding this product. Nasal ointment: Mupirocin (brand name: Bactroban) Your surgeon may also prescribe a topical ointment that is rubbed inside each of the nostrils to reduce the bacteria in your nose. Mupirocin ointment requires a prescription. If needed, it will be prescribed by your surgeon and obtained from your preferred pharmacy. SHOWERING WITH ANTISEPTIC SOAP (CHG) What You Need For Each Shower 60 mL (?? cup) of CHG 2 clean washcloths CHG Bathing Instructions First, shampoo and rinse your hair with your own shampoo (no conditioners). Do this so the antiseptic soap isn't washed off by your shampoo. Wash face with warm water. Turn off shower and stand away from the water. Use 2 clean washcloths to apply the antiseptic soap to all areas as described below: Pour 30 mL (1/8 cup) of CHG on washcloth #1: Using washcloth- start at jawline and firmly massage the soap into the skin in a circular motion to clean neck, shoulders, chest, back, both armpits, arms, hands and abdomen. Finish with legs and feet. Pour 30 mL (1/8 cup) of CHG on washcloth #2: Using washcloth- firmly massage the soap into the skinin a circular motion to clean groin area, perineum and buttocks. (Do not use CHG on genital area.) Patterson Points: The CHG antiseptic soap will not bubble or lather very much. If you get soap in your eyes, ears or mouth, rinse well with cool water. When finished, leave the soap on your skin for 2 minutes before rinsing. Dry off with a clean fresh towel. Wear clean clothes or pajamas to sleep in. After showering DO NOT put on deodorant, hair products or conditioners, lotions or creams, powders,Vaseline or any non-essential products. If you cannot reach the surgical site, such as the back, please have someone help you. Shaving: You may shave your face, legs and underarms during your evening shower before you apply the CHG antiseptic soap. Be careful not to cut or odalys your skin. Avoid shaving on the day of surgery. Deodorant: Patients following the 5-Day CHG protocol may apply deodorant on the days leading up to surgery, being sure, however, to avoid use on the evening before and day of surgery. All other products should be avoided for the full 5 days. 2-Day CHG Bathing Protocol The Evening Before Surgery: Take a shower with Antiseptic soap (CHG). Follow the steps for ???Showering with Antiseptic Soap (CHG)?? above. Change all linens on your bed so you are sleeping in clean fresh sheets and pillowcases. Remove nail coverings, artificial nails and nail hong konger. The Morning of Surgery: Take a shower with Antiseptic soap (CHG). Follow the steps for ???Showering with Antiseptic Soap (CHG)?? above. Put clean clothes on after you shower. Travel/Exposure Screening: Travel Screening Have you traveled outside the [place] in the last 6 months?: No Exposure Screening Have you been exposed to anyone who is sick in the last 30 days?: No Have you been exposed to or tested positive for COVID-19 within the last 10 days?: No Infectious Disease Screening Are you having any of the following:: None As of 07/05/2022 any COVID TESTING required for surgery will be set up by your surgeon's office. Please reach out to your surgeon's office if you develop any COVID symptoms, test positive for COVID or are exposed to a COVID positive person. If you have questions, please call the CPAP Staff at [phone], Monday-Monday 8am-4:30pm. All patients should read the below section: COVID 19 Updates & Visitor Policy: Please access [email or web address] for the most updated information. Information on [facility] the [facility]: Please view [email or web address] (Patient & Visitor Information) for additional details regarding Advanced Directive forms, AWARE, directions, parking information, lodging, Internet access, dining and more. Information on [facility] or [facility] ([facility]): Please view [email or web address] (Patient and Visitor Information) for parking/directions and more. For MyChart information, to activate account or password recovery, please go to [email or web address] or call [phone] (toll-free: [phone]), Mon- Monday 8am-5pm. Information for Suicide Prevention: National Suicide Prevention Lifeline (1-020- 052-CPGR (6499)) or call or text 293. Chat resources: [employer] Response. Surgery Times: For patients having surgery @ [facility] or [facility] [place] ([facility]), if your surgeon's office has not notified you of your surgery time by NOON THE BUSINESS DAY BEFORE your surgery, please call [phone] and ask for your surgeon's office Dr. Wright. The [facility] ([facility]) does not provide arrival times for the day of surgery or provide the duration of surgery. This information is provided by your surgeon'soffice or by the center where you are having surgery. We appreciate your understanding. UTER OPERATIONS ANALYST documented in this encounter Plan of Treatment Not on file documented as of this encounter Procedures Procedure Name Priority Date/Time Associated Diagnosis Comments SURGICAL PATHOLOGY Routine 10/11/2023 9: 07 AM COMPUTER OPERATIONS ANALYST Metastatic melanoma (HCC) DISSECTION AXILLARY LYMPH NODE 10/11/2023 8:27 AM COMPUTER OPERATIONS ANALYST Metastatic melanoma (HCC) documented in this encounter Results * Surgical pathology (10/11/2023 9:07 AM COMPUTER OPERATIONS ANALYST) Tissue (Lymph Node, Single excision) 10/11/2023 9:07 AM COMPUTER OPERATIONS ANALYST Narrative PATHOLOGY [facility] - 10/17/2023 8:42 AM COMPUTER OPERATIONS ANALYST EPIC results best viewed via link to PDF [facility] of Surgical [place] [address] [place] [address] Note to Patients: This report may contain a detailed description of human tissue sent by a health care provider to the laboratory for pathologic evaluation. The content of this report is essential for diagnosis and may provide important critical findings. This information may be unfamiliar to patients to review without a medical professional present. It is advised that the patient review this report in the presence of a health care provider who can answer questions and explain the details. SURGICAL PATHOLOGY REPORT FINAL Patient Name: ?? GUEVARA BAKER Gender: ??F : ??1945 (Age: 78) Address: ??[address] [place] [id number] Hospital #: ??[id number] Taken:10/11/2023 Received:10/11/2023 Reported: 10/17/2023 Patient Type: [facility] OP In Bed ?? Service: Surgery Location: [place] [address] Physician(s): ??Miriam Wilson F.N.P. Diagnosis: Lymph node, left axillary, dissection/regional resection: ? Necrotic tumor involving one of twelve lymph nodes ? Note: Viable tumor is not identified. exr/10/16/2023 11:34 By this signature, I attest that the above diagnosis is based upon my personal examination of the slides(and/or other material indicated in the diagnosis). Anitha Robins M.D. Report Electronically Reviewed and Signed Out By ??Anitha Robins M.D. 10/17/2023 08:42:42 Microscopic Description and Comment: There is an enlarged lymph node whose architecture is effaced by nodules of necrotic tumor surrounded by histiocytes. Microscopic slide review and interpretation for this case was performed at the Dermatopathology Center, ??Department of Pathology ??and Immunology, [facility], [facility], [address], [facility], [place] ??[address] ?? CLIA # [id number] History: The patient is an 78-year-old woman with metastatic melanoma. ??Operative procedure: Left axillary lymph node dissection Specimen(s) Received: A: Lymph node, left axillary, dissection/regional resection Gross Description: Received in formalin labeled with the patient identifiers and left axillary lymph node is a single fragment of lobular yellow pink adipose tissue (10.5 x 6.7 x 2.2 cm). ??Dissection and palpation reveal 12 putative soft purple garcia lymph nodes (0.3-3.2 cm). ??The largest lymph node has scattered hemorrhage and necrosis. ??Computer Aided Design Drafter sections are submitted as follows: A1-A2 Largest lymph node, direct customer service representative A3 One lymph node, bisected A4 One lymph node, bisected A5 Four lymph nodes A6 Five lymph nodes Jar 1. ?? bao2/10/11/2023 11:24 PA(s): NAVIN Coppola (ASCP)CM By this signature, I attest that the above diagnosis is based upon my personal examination of the slides(and/or other material). Addenda/Procedures The performance characteristics of some immunohistochemical stains, fluorescence in-situ hybridization tests and immunophenotyping by flow cytometry cited in this report (if any) were determined by the Surgical Pathology and Flow Cytometry Departments at [facility] as part of an ongoing quality assurance associate program and in compliance with federally mandated regulations drawn from the Clinical Laboratory Improvement Act of 1988 (CLIA '88). ??Some of these tests rely on the use of analyte specific reagents and are subject to specific labeling requirements by the US Food and Drug Administration. ??Such diagnostic tests may only be performed in a facility that is certified by the Department of Health and Human Services as a high complexity laboratory under CLIA '88. ??The FDA has determined that such clearance or approval is not necessary. ??This test is used for clinical purposes. ??It should not be regarded as investigational or for research. ??Nevertheless, federal rules concerning the medical use of analyte specific reagents require that the following disclaimer be attached to the report: This test was developed and its performance characteristics determined by the Surgical Pathology and Flow Cytometry Departments of [facility]. ??It has not been cleared or approved by the U. S. Food and Drug Administration. IMAGES AND SCANNED DOCUMENTS, IF INCLUDED, ONLY VIEWABLE IN PDF VERSION OF REPORT Landon Wright MD LAB PATHOLOGY ORDERABLES Final Result PATHOLOGY [facility] [address]rd Floor [place], [place] [phone] documented in this encounter Visit Diagnoses Diagnosis Metastatic melanoma (HCC)- Primary Melanoma of skin, site unspecified Metastatic melanoma (HCC) Melanoma of skin, site unspecified Malignant melanoma of unknown origin (HCC) Metastatic malignant melanoma (HCC) Metastatic melanoma (HCC) Melanoma of skin, site unspecified documented in this encounter Admitting Diagnoses Diagnosis Metastatic melanoma (HCC) Melanoma of skin, site unspecified Metastatic malignant melanoma (HCC) documented in this encounter Administered Medications Inactive Administered Medications - up to 3 most recent administrations Medication Order MAR Action Action Date Dose Rate Site acetaminophen (TYLENOL) tablet 1,000 mg 1,000 mg, oral, Every 6 hours scheduled, First dose on Mon10/11/23 at 1200, Indications: PainIndications:Pain Given 10/12/2023 5:53 AM COMPUTER OPERATIONS ANALYST 1,000 mg Given 10/11/2023 11:40 PM COMPUTER OPERATIONS ANALYST 1,000 mg Given 10/11/2023 5:06 PM COMPUTER OPERATIONS ANALYST 1,000 mg BUPivacaine (MARCAINE) 0.5 % (5 mg/mL) preservative free injection As needed, Starting on Mon10/11/23 at 0930, Intra-Op Given 10/11/2023 9:30 AM COMPUTER OPERATIONS ANALYST 25 mL Surgical Site enoxaparin (LOVENOX) syringe 40 mg 40 mg, subcutaneous, Daily (for enoxaparin), First dose on Mon10/11/23 at 2100, Indications: Deep Vein Thrombosis PreventionIndications:Deep Vein Thrombosis Prevention Given 10/11/2023 8:58 PM COMPUTER OPERATIONS ANALYST 40 mg Left Lower Abdomen gabapentin (NEURONTIN) capsule 200 mg 200 mg, oral, 3 times daily, First dose on Mon10/11/23 at 1600 Given 10/12/2023 8:36 AM COMPUTER OPERATIONS ANALYST 200 mg Given 10/11/2023 8:58 PM COMPUTER OPERATIONS ANALYST 200 mg Given 10/11/2023 4:13 PM COMPUTER OPERATIONS ANALYST 200 mg heparin 5,000 unit/mL injection 5,000 Units 5,000 Units, subcutaneous, Once, On Mon10/11/23 at 0700, For 1 dose, Pre-Op, Indications: Deep Vein Thrombosis PreventionIndication s:Deep Vein Thrombosis Prevention Given 10/11/2023 8:05 AM COMPUTER OPERATIONS ANALYST 5,000 Units Left Lower Abdomen Lactated Ringer's (LR) infusion 30 mL/hr, intravenous, Continuous, Starting on Mon10/11/23 at 0700, Pre-Op Rate/Dose Verify 10/11/2023 8:23 AM COMPUTER OPERATIONS ANALYST 30 mL/hr New Bag 10/11/2023 6:42 AM COMPUTER OPERATIONS ANALYST 30 mL/hr 30 mL/hr lidocaine (ASPERCREME) 4 % patch 1 patch 1 patch, transdermal, Administer over 12 Hours, Every 24 hours, First dose on Mon10/11/23 at 1200, Apply to affected area: arm, Laterality: Left Medication Applied 10/11/2023 11:39 AM COMPUTER OPERATIONS ANALYST 1 patch Chest metoprolol XL (TOPROL-XL) extended release tablet 50 mg 50 mg, oral, Daily, First dose on Mon10/11/23 at 1230, Tablets that are scored may be split, but do not crush, chew, dissolve, open or otherwise manipulate tablet/capsule. Given 10/12/2023 8:36 AM COMPUTER OPERATIONS ANALYST 50 mg ondansetron ODT (ZOFRAN-ODT) disintegrating tablet 4 mg 4 mg, oral, Every 4 hours PRN, nausea, vomiting, Starting on Mon10/11/23 at 1117 oxyCODONE (ROXICODONE) tablet 5 mg 5 mg, oral, Every 4 hours PRN, 1st line for pain, Starting on Mon10/11/23 at 1116, Indications: PainIndications:Pain polyethylene glycol (MIRALAX) packet 17 g 17 g, oral, Daily, First dose on Mon10/11/23 at 1200, Indications: constipationIndications:constip ation rosuvastatin (CRESTOR) tablet 5 mg 5 mg, oral, Daily, First dose on Mon10/11/23 at 1230 Given 10/12/2023 8:36 AM COMPUTER OPERATIONS ANALYST 5 mg Given 10/11/2023 4:13 PM COMPUTER OPERATIONS ANALYST 5 mg senna-docusate (PERICOLACE) 8.6-50 mg per tablet 1 tablet 1 tablet, oral, 2 times daily, First dose on Mon10/11/23 at 1200 Given 10/12/2023 8:36 AM COMPUTER OPERATIONS ANALYST 1 tablet Given 10/11/2023 8:58 PM COMPUTER OPERATIONS ANALYST 1 tablet Given 10/11/2023 11:38 AM COMPUTER OPERATIONS ANALYST 1 tablet sodium chloride 0.9% irrigation As needed, Starting on Mon10/11/23 at 0906, Intra-Op Given 10/11/2023 9:06 AM COMPUTER OPERATIONS ANALYST 2,000 mL documented in this encounter Discontinued Medications Medication Sig Discontinue Reason Start Date End Da te biotin 2,500 mcg capsule Take 2 tablets by mouth daily 12/24/2014 09/13/2023 cyclobenzaprine (FLEXERIL) 5 mg tablet Take 1 tablet (5 mg total) by mouth 3 (three) times a day as needed for muscle spasms for up to 14 days Stop Taking at Discharge 10/12/2023 10/12/2023 documented as of this encounter Historical Medications * This list may reflect changes made after this encounter. multivitamin tabletIndications :Vitamin Deficiency Prevention Take 1 tablet by mouth every morning added in this encounter Active and Recently Administered Medications Times are shown in COMPUTER OPERATIONS ANALYST. Scheduled Medication Order 10/10/2023 10/11/2023 10/12/2023 acetaminophen (TYLENOL) tablet 1,000 mg 1,000 mg, oral, Every 6 hours scheduled, First dose on Mon10/11/23 at 1200, Indications: Pain 1138 (Given - Provider: Elly Infante RN)1706 (Given - Provider: Elly Infante, MARGAUX)2340 (Given - Provider: Magalis Lima RN) 0553 (Given - Provider: Magalis Lima RN)1200 (Due) ceFAZolin (ANCEF) 2,000 mg/20 mL in sterile water (premix) 2,000 mg (COMPLETED) 2,000 mg, intravenous, at 400 mL/hr, Administer over 3 Minutes, Once, On Mon10/11/23 at 0700, For 1 dose, Pre-Op, Administer within 60 minutes of incision., Indications: Prophylaxis, Surgical 0843 (Given - Provider: [place]) enoxaparin (LOVENOX) syringe 40 mg 40 mg, subcutaneous, Daily (for enoxaparin), First dose on Mon10/11/23 at 2100, Indications: Deep Vein Thrombosis Prevention 2057 (Given - Provider: Magalis Lima RN) gabapentin (NEURONTIN) capsule 200 mg 200 mg, oral, 3 times daily, First dose on Mon10/11/23 at 1600 1613 (Given - Provider: Elly Infante RN)2058 (Given - Provider: Magalis Lima RN) 0836 (Given - Provider: Elly Infante RN) heparin 5,000 unit/mL injection 5,000 Units (COMPLETED) 5,000 Units, subcutaneous, Once, On Mon10/11/23 at 0700, For 1 dose, Pre-Op, Indications: Deep Vein Thrombosis Prevention 0805 (Given - Provider: Vicky Stephenson RN) lidocaine (ASPERCREME) 4 % patch 1 patch 1 patch, transdermal, Administer over 12 Hours, Every 24 hours, First dose on Mon10/11/23 at 1200, Apply to affected area: arm, Laterality: Left 1139 (Medication Applied - Provider: Elly Infante RN)2345 (Medication Removed - Provider: Magalis Lima RN) 1200 (Due) metoprolol XL (TOPROL-XL) extended release tablet 50 mg 50 mg, oral, Daily, First dose on Mon10/11/23 at 1230, Tablets that are scored may be split, but do not crush, chew, dissolve, open or otherwise manipulate tablet/capsule. 1229 (Not Given - Provider: Elly Infante RN - Reason: Order parameters not met - Comment: pt heart rate below 60) 0836 (Given - Provider: Elly Infante RN) polyethylene glycol (MIRALAX) packet 17 g 17 g, oral, Daily, First dose on Mon10/11/23 at 1200, Indications: constipation 1118 (Not Given - Provider: Elly Infante RN - Reason: Patient/family refused) 0836 (Not Given - Provider: Elly Infante RN - Reason: Patient/family refused) rosuvastatin (CRESTOR) tablet 5 mg 5 mg, oral, Daily, First dose on Mon10/11/23 at 1230 1613 (Given - Provider: Elly Infante RN) 0836 (Given - Provider: Elly Infante RN) senna-docusate (PERICOLACE) 8.6-50 mg per tablet 1 tablet 1 tablet, oral, 2 times daily, First dose on Mon10/11/23 at 1200 1138 (Given - Provider: Elly Infante, MARGAUX)2058 (Given - Provider: Magalis Lima RN) 0836 (Given - Provider: Elly Infante RN) Continuous Medication Order 10/10/2023 10/11/2023 10/12/2023 Lactated Ringer's (LR) infusion (CANCELED) 30 mL/hr, intravenous, Continuous, Starting on Mon10/11/23 at 0700, Pre-Op 0642 (New Bag - Provider: Sa ra Chela Stephenson RN)0823 (Rate/Dose Verify - Provider: [place])0932 (Stopped - Provider: [place])1118 (Not Given - Provider: Elly Infante RN - Reason: Order Discontinued) PRN Medication Order 10/10/2023 10/11/2023 10/12/2023 BUPivacaine (MARCAINE) 0.5 % (5 mg/mL) preservative free injection (CANCELED) As needed, Starting on Mon10/11/23 at 0930, Intra-Op 0930 (Given - Provider: Landon Wright MD) ondansetron ODT (ZOFRAN-ODT) disintegrating tablet 4 mg 4 mg, oral, Every 4 hours PRN, nausea, vomiting, Starting on Mon10/11/23 at 1117 oxyCODONE (ROXICODONE) tablet 5 mg 5 mg, oral, Every 4 hours PRN, 1st line for pain, Starting on Mon10/11/23 at 1116, Indications: Pain sodium chloride 0.9% irrigation (CANCELED) As needed, Starting on Mon10/11/23 at 0906, Intra-Op 0906 (Given - Provider: Landon Wright MD) documented in this encounter Orders Medications Ordered That Stalin ht Not Have Been Administered Count Last Ordered Date First Ordered Date Carrier Fluids for Secondary Infusion - 0.9% Sodium Chloride 1 10/11/2023 ceFAZolin (ANCEF) 2,000 mg/2 0 mL in sterile water (premix) 2,000 mg 1 10/11/2023 cyclobenzaprine (FLEXERIL) tablet 5 mg 1 diphenhydrAMINE (BENADRYL) 5 0 mg/mL injection 12.5 mg 1 10/11/2023 haloperidol (HALDOL) injection 0.5 mg 1 HYDROmorphone (DILAUDID) injection 0.2 mg 1 10/11/2023 Lactated Ringer's (LR) infusion 1 naloxone (NARCAN) 0.4 mg/mL injection 0.04-0.4 mg 1 10/11/2023 ondansetron ODT (ZOFRAN-ODT) disintegrating tablet 4 mg 1 10/11/2023 oxyCODONE (ROXICODONE) tablet 2.5 mg 1 09/13 oxyCODONE (ROXICODONE) tablet 5 mg 1 2023 polyethylene glycol (MIRALAX) packet 17 g 1 10/11/2023 prochlorperazine (COMPAZINE) injection 2.5 mg 1 10/11/2023 sodium chloride 0.9% flush 0.5-20 mL 1 09/13 Admission Count Last Ordered Date First Orde red Date INITIATE OUTPATIENT IN A BED 1 10/11/2023 Discharge Count Last Ordered Date First Orde red Date DISCHARGE PATIENT 1 10/12/2023 CORE MEASURES Count Last Ordered Date First Ord ered Date REASON FOR NO VTE PROPHYLAXIS AT ADMISSION 1 10/11/2023 ADT Patient Update Count Last Ordered Date Firs t Ordered Date PROVIDER TREATMENT TEAM 1 10/11/2023 documented in this encounter Care Teams Electrical Electronics Technician Relationship Specialty Start Date End Date Becky Conroy NP [address] [place] [address] PCP - General Nurse Practitioner 07/06/23 Jose Chairez MD PhD [address] [facility] [address] [place] [address] Medical Oncologist/Cat Hooker Medical Oncology 08/14/23 Evelin Lofton MD [address] [place] [address] Referring Physician Cardiovascular Disease 08/14/23 documented as of this encounter
--- OUTSIDE RECORDS SUMMARY | 2024-09-17 04:23 | XMS_ITS | Encounter Summary ---
Author Organization [facility] Address [address] [place] [address] Phone Care Team Providers Care Cross Tie Turner Name Role Phone Becky Conroy NP Primary Care Provider [phone] Jose Chairez MD PhD Unavailable [phone] Evelin Lofton MD Unavailable [phone] Encounter Details Date Type Department Care Team (Late st Contact Info) Description 10/04/2023 Telephone [facility] [place] [facility] Advanced Medicine 5th [place] [address] [place] [address] Hu Giordano Social History Tobacco [...] on file Legal Sex Female 1:54 AM TRUCKLOAD CHECKER Gender Identity Not on file Sexual Orientation Not on file documented as of this encounter Miscellaneous Notes * Telephone Encounter - Hu Giordano - 10/04/2023 2:26 PM CST PC to pt to let her know Dr. Davis agrees to CPAP recommednatios and she is to hold her plavis for7 days prior to her procedure. Pt agrees and has no further questions. ----- Message from Marizol Blancas NP sent at 10/04/2023 9:54 AM TRUCKLOAD CHECKER ----- Regarding: CPAP MESSAGE FIELD The patient is on clopidogrel ( Plavix) therapy and has a history of PCI 2002 and CAD. Because the risk of increased bleeding likely outweighs the benefits of this therapy perioperatively, we recommend discontinuing clopidogrel for 7 days prior to the procedure and resuming therapy when feasible inthe postoperative period. [employer] staff message sent to surgeon's office. Please call the CPAP clinic ([phone]) with any questions. >NOTE: There is no need to reply to this message but if you would like to send a non-urgent reply, please address it to the [employer] staff message POOL address [facility] COMPUTER TERMINAL OPERATOR (number [phone]). Please note that messages to this address will be replied to within approximately 1 business day. If you have an urgent reply, please call the CPAP at [phone]. KLOAD CHECKER KLOAD CHECKER documented in this encounter Plan of Treatment Not on file documented as of this encounter Visit Diagnoses Not on filedocumented in this encounter Care Teams Cross Tie Turner Relationship Specialty Start Date End Date Becky Conroy NP [address] [place] [address] PCP - General Nurse Practitioner 07/06/23 Jose Chairez MD PhD [address] [facility] [address] [place] [address] Medical Oncologist/Scallop Raker Medical Oncology 08/14/23 Evelin Lofton MD [address] [place] [address] Referring Physician Cardiovascular Disease 08/14/23 documented as of this encounter
--- OUTSIDE RECORDS SUMMARY | 2024-09-17 04:23 | XMS_ITS | Encounter Summary ---
Author Organization [facility] Healthcare Address [address] [place] [address] Care Team Providers Care Pneumatic Tube Operator Name Role Phone Becky Conroy NP Primary Care Provider [phone] Jose Chairez MD PhD Unavailable [phone] Evelin Lofton MD Unavailable [phone] Reason for Visit * MRI/CAT/PET Scan (Routine) - Closed Specialty Diagnoses / Procedures Referred By Contac t Referred To Contact Procedures Neuro CT Outside Reference Sukumar Whipple MD [address] [facility] [address] [place] [address] Phone: tel: fax: Referral ID Status Reason Start Date Expiration Date Visits Re quested Visits Authorized [id number] Closed 09/20/2023 10/19/2024 1 1 Encounter Details Date Type Department Care Team (Latest Contact Info) Description 09/20/2023 9:12 PM WEB INTERFACE DEVELOPER - 09/20/2023 11:59 PM WEB INTERFACE DEVELOPER Hospital Encounter [facility] [address] [place] [id number] Discharge Disposition: Discharge to home or self [...] you are drinking? Patient does not drink 4 Q3: How often do you have si x or more drinks on one occasion? Never 09/13/2023 Personal Safety Answer Date Recorded Getting School Help Needed Not on file 08/24 Comments No Sex and Gender Information Value Date Recorded Sex Assigned at Not on file Legal Sex Female 1:54 AM WEB INTERFACE DEVELOPER Gender Identity Not on file Sexual [...] Procedure Name Priority Date/Time Associated Diagnosis Comments NEURO CT OUTSIDE REFERENCE Routine 09/20/2023 9:12 PM WEB INTERFACE DEVELOPER documented in this encounter Results * Neuro CT Outside Reference (09/20/2023 9:12 PM WEB INTERFACE DEVELOPER) Impressions SILVESTRE - 09/20/2023 9:12 PM WEB INTERFACE DEVELOPER These images are for Reference purposes only and have not been reviewed by [facility] Radiology. ??There will be no report generated by a [facility] Radiologist. Narrative RAD_PACS_[facility] - 09/20/2023 9:12 PM WEB INTERFACE DEVELOPER EXAMINATION: ??Images For Reference Purposes Only us Sukumar Whipple MD IMG CT PROCEDURES [place] l Result RAD_PACS[facility] documented in this encounter Visit Diagnoses Not on filedocumented in this encounter Care Teams Pneumatic Tube Operator Relationship Specialty Start Date End Date Becky Conroy BIOMEDICAL ENGINEERING TECHNOLOGIST [address] [place] [address] PCP - General Nurse Practitioner 07/06/23 Jose Chairez MD PhD [address] [facility] [address] [place], [place] [id number] Medical Oncologist/Insurance Claims Processor Medical Oncology 08/14/23 Evelin Lofton MD [address] [place] [address] Referring Physician Cardiovascular Disease 08/14/23 documented as of this encounter
--- OUTSIDE RECORDS SUMMARY | 2024-09-17 04:23 | XMS_ITS | Encounter Summary ---
Author Organization [facility] Address [address] [place] [address] Phone Care Team Providers Care Eradicator Name Role Phone Becky Conroy NP Primary Care Provider [phone] Reason for Visit * Reason Comments Immunotherapy * Episode Based Medications (Routine) - Closed Specialty Diagnoses / Procedures Referred By Korey harkins Referred To Contact Oncology Diagnoses Malignant melanoma of unknown origin (HCC) Jose Chairez MD PhD [address] [facility] [address] [place] [address] Phone: tel: fax: [facility] [address] [place] [phone] Phone: tel: fax: Referral ID Status Reason Start Date Expiration Date Visits Re quested Visits Authorized [id number] Closed 05/27/2024 09/04/2024 1 30 Encounter Details Date Type Department Care Team (Late st Contact Info) Description 08/08/2023 11:45 AM PROCESS CONTROL TECH Infusion [facility] Oncology [address] [place] [phone] Malignant melanoma of unknown origin (HCC) (Primary Dx) Social History Tobacco Use Types Packs/Day Years Used Date Smoking Tobacco: Never Smokeless Tobacco: Never Comments Unknown Sex and Gender Information Value Date Recorded Sex Assigned at Not on file Legal Sex Female 1:54 AM PROCESS CONTROL TECH Gender Identity Not on file Sexual Orientation Not on file documented as of this encounter Last Filed Vital Signs Vital Sign Reading Time Taken Comments Blood Pressure - - Pulse - - Temperature - - Respiratory Rate - - Oxygen Saturation - - Inhaled Oxygen Concentration - - Weight 67.9 kg (149 lb 11.2 oz) 023 11:19 AM PROCESS CONTROL TECH shoes off Height 157.7 cm (5' 2.09 ) 08/08/2023 1 1:19 AM PROCESS CONTROL TECH shoes off Body Mass Index 27.3 08/08/2023 11:19 AM PROCESS CONTROL TECH documented in this encounter Nursing Notes * Frida Hutchinson, RN - 08/08/2023 11:45 AM CST Educated learner(s) on Immunotherapy Regimen Pembrolizumab: I explained the infusion times for immunotherapy agents. I discussed and provided handouts on the following potential side effects from Pembrolizumab: Fatigue: why fatigue occurs, conservation of energy, mild exercise such as walking can help, try tomaintain normal routine, rest when needed Thyroid dysfunction: monitored periodically by MD on blood work, may require thyroid supplementation Report the following symptoms: Skin rash Cough or shortness of breath Diarrhea Abdominal pain Change in urine Headache Confusion Hydration: functions of water in the body, goal of 64oz of non-caffienated fluids per day, signs ofdehydration, acceptable fluids for hydration (water, milk, juice, lemonade, etc.) Patient educated about symptoms of infusion reaction (including itching, hives, shortness of breath, back pain, chest pain, numbness, tingling, etc.) Patient instructed to inform nurse immediately if any symptoms present. Described care that would be provided in such event. Encouraged patient to call with any questions or concerns, Provided patient with medical team contact information and after hours exchange number. Pt and family verbalized understanding. Handouts given. All questions answered and no further needswere stated. ESS CONTROL TECH * Erin Esteban RN - 08/08/2023 11:45 AM CST Oncology Nursing Note [facility] ON[facility] Magui Baker is a 78 y.o. female who presents for treatment cycle 1 day 1 of keytruda Pre-treatment Nursing Assessment Nursing Assessment LOC: Alert, Awake Any falls since your last visit?: N/A (new pt, no recent falls) Orientation: Oriented x4 Behavior: Calm Speech: Clear Language: No aphasia Vision: At baseline Peripheral Neuropathy: No Oral Mucosa Grade: Normal (0) Pt states has potential to be ?: No Shortness of Breath?: No ( sometimes (MCLEOD) but I've always had that ) Appetite: Fair Have You Recently Lost Weight Without Trying?: No Have you been eating poorly because of a decreased appetite?: No Malnutrition Screening Tool (MST) Score: 0 Nausea/Vomiting: No Diarrhea: No Constipation: No Skin Condition/Temp: Warm, Dry Swelling: No Additional Notes: pt and family educated on tx by rn educator BP: 157/91 Temp: 36.7 ??C (98.1 ??F) Pulse: 71 Resp: 16 SpO2: 95 % Height: 157.7 cm (5' 2.09 ) (shoes off) Weight: 67.9 kg (149 lb 11.2 oz) (shoes off) Treatment Patient: met treatment parameters Pre blood [...] Ambulatory Accompanied by: Family Discharged To: Home ESS CONTROL TECH documented in this encounter Plan of Treatment [...] mL/hr, Administer over 30 Minutes, Once, On Mon08/08/23 at 1215, For 1 dose, Use 0.2-5 micron filter, low-sorbing, low protein binding.Indications:Malignan t melanoma of unknown origin (HCC) New Bag 08/08/2023 12:29 PM PROCESS CONTROL TECH 200 mg 216 mL/hr documented in this encounter Orders Medications Ordered That Stalin ht Not Have Been Administered Count Last Ordered Date First Ordered Date pembrolizumab (KEYTRUDA) 200 mg in sodium chloride 0.9% 100 mL IVPB 1 08/08/2023 Nursing Count Last Ordered Date First Orde red Date ONCBCN TREATMENT PARAMETERS 3 1 08/08/2023 Appointment Requests Count Last Ordered Date Fi rst Ordered Date ONCBCN RETURN CHEMO 1.5HRS 1 08/08/2023 documented in this encounter Care Teams Eradicator Relationship Specialty Start Date End Date Becky Conroy NP [address] [place] [address] PCP - General Nurse Practitioner 07/06/23 documented as of this encounter
--- OUTSIDE RECORDS SUMMARY | 2024-09-17 04:23 | XMS_ITS | Encounter Summary ---
Author Organization [facility] [place] [facility] Address [address] [place] [address] Phone Care Team Providers Care Vp Security Name Role Phone Becky Conroy NP Primary Care Provider [phone] Jose Chairez MD PhD Unavailable +1- [phone] Evelin Lofton MD Unavailable [phone] Reason for Visit * Episode Based Medications (Routine) - Closed Specialty Diagnoses / Procedures Referred By Contac t Referred To Contact Oncology Diagnoses Malignant melanoma of unknown origin (HCC) Jose Chairez MD PhD [address] [facility] [address] [place] [address] Phone: tel: fax: [facility] Cancer [address] [address] Phone: tel: fax: Referral ID Status Reason Start Date Expiration Date Visits Re quested Visits Authorized [id number] Closed 05/27/2024 09/04/2024 1 30 Encounter Details Date Type Department Care Team (Late st Contact Info) Description 09/19/2023 11:15 AM SUPERVISOR FINISH END Office Visit [facility] Oncology [address] [place] [id number] Jose Chairez MD PhD [address] [facility] [address] [place] [address] Malignant melanoma of unknown origin [...] file Legal Sex Female 1:54 AM SUPERVISOR FINISH END Gender Identity Not on file Sexual Orientation Not on file documented as of this encounter Last Filed Vital Signs Vital Sign Reading Time Taken Comments Blood Pressure 149/82 09/19/2023 10:16 AM SUPERVISOR FINISH END Pulse 69 09/19/2023 10:16 AM SUPERVISOR FINISH END Temperature 36.5 ??C (97.7 ??F) 09/19/2023 10:[address] Respiratory Rate 17 09/19/2023 10:16 AM SUPERVISOR FINISH END Oxygen Saturation 92% 09/19/2023 10:16 AM SUPERVISOR FINISH END Inhaled Oxygen Concentration - - Weight 67 kg (147 lb 12.8 oz) 09/19/2023 10:16 A M SUPERVISOR FINISH END Height - - Body Mass Index 27.03 09/13/2023 9:35 AM SUPERVISOR FINISH END documented in this encounter Progress Notes * Jose Chairez MD PhD - 09/19/2023 11:15 AM CST Oncology Progress Note Cancer Staging [...] Day Cycles Current day: Day 1, Cycle 3 (Started on 09/19/2023; Originally planned for 09/19/2023) Following planned day: Day 1, Cycle 4 (Planned for 10/24/2023) Subjective Interval History Magui Baker presents for ongoing management of melanoma. Doing very well with some itching but otherwise tolerating therapy well. Notes that axillary mass feels smaller. No Known Allergies Outpatient Encounter Medications as of 09/19/2023: clopidogreL (PLAVIX) 75 mg tablet, Take 1 [...] mouth every morning, Disp: , Rfl: [DISCONTINUED] biotin 2,500 mcg capsule, Take 2 tablets by mouth daily (Patient not taking: Reported on 08/24/2023), Disp: , Rfl: No facility-administered encounter medications on file as of 09/19/2023. Review of Systems: Review of systems per HPI and otherwise all other systems are negative Performance Status: ECOG 0 Objective Vitals: Most Recent : BP: 149/82 Temp: 36.5 ??C (97.7 ??F) Temp src: Oral Pulse: 69 Resp: 17 SpO2: 92 % Weight: 67 kg (147 lb 12.8 oz) Physical Exam: General Appearance: Well-appearing, in no apparent distress. ECO HEENT: Normocephalic, atraumatic. Pupils equal, round and reactive to light. Sclera anicteric. Oropharynx clear. Extremities: No edema, clubbing or cyanosis. LNs: L axillary mass notably decreased in size, hardly palpable Skin: Numerous AKs throughout the upper and lower extremities. Neuro: Non-focal. Lab/Radiology/Diagnostic Review: Recent Results (from the past 72 hour(s)) Comprehensive metabolic panel Collection Time: 09/19/23 10:00 AM Result Value Ref Range Sodium 142 135 - 145 mmol/L Potassium, pl 3.8 3.3 - 4.9 mmol/L Chloride 105 97 - 110 mmol/L CO2 29 22 - 32 mmol/L Anion gap 8 2 - 15 mmol/L BUN 22 6 - 25 mg/dL Creatinine 0.87 0.60 - 1.10 mg/dL Glucose 107 70 - 199 mg/dL Calcium 10.4 (H) 8.5 - 10.3 mg/dL Bilirubin, total 0.3 0.1 - 1.2 mg/dL Protein, pl 7.7 6.5 - 8.5 g/dL Albumin 4.7 3.5 - 5.0 g/dL Alk phos 49 40 - 130 Units/L ALT 22 7 - 45 Units/L AST 23 10 - 45 Units/L CBC with auto differential Collection Time: 09/19/23 10:00 AM Result Value Ref Range WBC 7.9 3.8 - 9.9 K/cumm Hgb 13.3 11.9 - 15.5 g/dL Hct 41.0 35.6 - 45.5 % Plt 236 150 - 400 K/cumm MPV 9.8 9.1 - 12.3 fL RBC 4.61 3.90 - 5.20 M/cumm MCV 88.9 81.3 - 96.4 fL MCH 28.9 27.1 - 33.3 pg MCHC 32.4 32.3 - 35.7 g/dL RDW CV 13.1 11.1 - 14.9 % RDW SD 43.0 35.7 - 48.1 fL NRBC abs 0.00 0.00 - 0.01 K/cumm Lactate dehydrogenase (LD) Collection Time: 09/19/23 10:00 AM Result Value Ref Range Lactate dehydrogenase (LDH) 203 100 - 250 Units/L TSH reflex to free T4 Collection Time: 09/19/23 10:00 AM Result Value Ref Range TSH 0.08 (L) 0.30 - 4.20 mcIUnit/mL Protime-INR Collection Time: 09/19/23 10:00 AM Result Value Ref Range PT 11.5 10.3 - 13.7 sec INR 1.01 0.90 - 1.20 Differential, auto Collection Time: 09/19/23 10:00 AM Result Value Ref Range Neutrophil abs 4.0 1.5 - 6.5 K/cumm Imm gran abs 0.0 0.0 - 0.1 K/cumm Lymphocyte abs 2.8 0.8 - 3.3 K/cumm Monocyte abs 0.7 0.2 - 0.8 K/cumm Eosinophil abs 0.3 0.0 - 0.5 K/cumm Basophil abs 0.1 0.0 - 0.1 K/cumm Neutrophil pct 50.5 % Imm gran pct 0.4 % Lymphocyte pct 35.2 % Monocyte pct 9.1 % Eosinophil pct 3.9 % Basophil pct 0.9 % eGFR Collection Time: 09/19/23 10:00 AM Result Value Ref Range eGFR 67 >=60 mL/min/1.73 m2 T4, free Collection Time: 09/19/23 10:00 AM Result Value Ref Range Free T4 1.66 0.90 - 1.70 ng/dL Radiology: None today [...] additional questions that may arise going forward. RVISOR FINISH END documented in this encounter Plan of Treatment Not on file documented as of this encounter Visit Diagnoses Diagnosis Malignant melanoma of unknown origin (HCC) documented in this encounter Orders Appointment Requests Count Last Ordered Date Fi rst Ordered Date ONCBCN CLINIC APPOINTMENT REQUEST 2 024 documented in this encounter Care Teams Vp Security Relationship Specialty Start Date End Date Becky Conroy MAP COMPILER [address] [place] [address] PCP - General Nurse Practitioner 07/06/23 Jose Chairez MD PhD [address] [facility] [address] [place], [place] [id number] Medical Oncologist/Product Marketing Specialist Medical Oncology 08/14/23 Evelin Lofton MD [address] [place] [address] Referring Physician Cardiovascular Disease 08/14/23 documented as of this encounter
--- OUTSIDE RECORDS SUMMARY | 2024-09-17 04:23 | XMS_ITS | Encounter Summary ---
Author Organization [facility] Address [address] [place] [address] Phone Care Team Providers Care Prior Authorization Nurse Name Role Phone Becky Conroy NP Primary Care Provider [phone] Jose Chairez MD PhD Unavailable [phone]- [phone] Evelin Lofton MD Unavailable [phone] Encounter Details Date Type Department Care Team (Late st Contact Info) Description 10/13/2023 Telephone [facility] Surgery [address] [facility] [place] Advanced Medicine 5th [place] [address] [place] [address] Jackie Carranza RN Social History Tobacco Use Types Packs/Day [...] on file Legal Sex Female 1:54 AM GAUGER CHIEF DELIVERY Gender Identity Not on file Sexual Orientation Not on file documented as of this encounter Miscellaneous Notes * Telephone Encounter - Jackie Carranza RN - 10/13/2023 3:06 PM CST Pt returned call to inform that after stripping her left axillary drain that it is now patent and has put out 25 mL of serosanguinous foul smelling drainage. Pt denies cloudiness in her drainage. Shehas not had any further leaking on the dressing since stripping the drain. Pt did not a small clot in the bulb. Discussed with pt to strip her drains every 4-6 hours to keep them patent. Pt instructed to call the after-hours number if any issues this weekend. Pt understands and has no further questions at this time. ER CHIEF DELIVERY * Telephone Encounter - Jackie Carranza RN - 10/13/2023 11:00 AM CST Pt called after previously calling in that her left axillary drain is leaking around the drainage tube. Per the pt and her daughter she has been having a bloody drainage on her upper aspect of her drain above the drain insertion site. SHEILA drain is able to hold suction. Pt and daughter instructed on stripping the drain and no output at the current time. Discussed with pt and daughter to repeat thisprocess at 12:30 and 2:30 and to call back with the outcome. Callback number provided to pt. Pt anddaugther also given the after-hours number if needed ([phone]). Pt and daughter understand andwill call back this afternoon with an update. Pt and daughter have no questions at this time. ER CHIEF DELIVERY documented in this encounter Plan of Treatment Not on file documented as of this encounter Visit Diagnoses Not on filedocumented in this encounter Care Teams Prior Authorization Nurse Relationship Specialty Start Date End Date Becky Conroy NP [address] [place] [address] PCP - General Nurse Practitioner 07/06/23 Jose Chairez MD PhD [address] [facility] [address] [place] [address] Medical Oncologist/Pipeline Gang Supervisor Medical Oncology 08/14/23 Evelin Lofton MD [address] [place] [address] Referring Physician Cardiovascular Disease 08/14/23 documented as of this encounter
--- OUTSIDE RECORDS SUMMARY | 2024-09-17 04:23 | XMS_ITS | Encounter Summary ---
Author Organization [facility] Address [address] [place] [address] Phone Care Team Providers Care Cable Television Access Coordinator Name Role Phone Becky Conroy NP Primary Care Provider [phone] Jose Chairez MD PhD Unavailable [phone] Evelin Lofton MD Unavailable [phone] Encounter Details Date Type Department Care Team (Late st Contact Info) Description 10/02/2023 Telephone [facility] Oncology [address] [place] [id number] Asya Giles RN Social History Tobacco Use [...] on file Legal Sex Female 1:54 AM TELLER SUPERVISOR Gender Identity Not on file Sexual Orientation Not on file documented as of this encounter Miscellaneous Notes * Telephone Encounter - Asya Giles RN - 10/02/2023 8:51 AM TELLER SUPERVISOR Magui's PET scan was cancelled for today. Rescheduled for Monday, arrive at 1pm. Patient aware of location, time and restrictions. ER SUPERVISOR documented in this encounter Plan of Treatment Not on file documented as of this encounter Visit Diagnoses Not on filedocumented in this encounter Care Teams Cable Television Access Coordinator Relationship Specialty Start Date End Date Becky Conroy NP [address] [place] [address] PCP - General Nurse Practitioner 07/06/23 Jose Chairez MD PhD [address] [facility] [address] [place], [place] [id number] Medical Oncologist/Professor Of Economics Medical Oncology 08/14/23 Evelin Lofton MD [address] [place] [address] Referring Physician Cardiovascular Disease 08/14/23 documented as of this encounter
--- OUTSIDE RECORDS SUMMARY | 2024-09-17 04:23 | XMS_ITS | Encounter Summary ---
Author Organization [facility] Address [address] [place] [address] Care Team Providers Care Political Analyst Name Role Phone Becky Conroy NP Primary Care Provider [phone] Reason for Referral * MRI/CAT/PET Scan (Routine) - Closed Specialty Diagnoses / Procedures Referred By Contac t Referred To Contact Radiology Diagnoses Malignant melanoma of unknown origin (HCC) Procedures MRI Brain W WO Contrast Jose Chairez MD PhD [address] [address] Phone: tel: fax: [facility] Referral ID Status Reason Start Date Expiration Date Visits Re quested Visits Authorized [id number] Closed 07/18/2023 08/16/2024 1 1 RETE WALL GRINDER OPERATOR Reason for Visit * MRI/CAT/PET Scan (Routine) - Closed Specialty Diagnoses / Procedures [facility]erred By [facility] Referred To Contact Radiology Diagnoses Malignant melanoma of unknown origin (HCC) Procedures MRI Brain W WO Contrast Jose Chairez MD PhD [address] [address] Phone: tel: fax: [facility] Referral ID Status Reason Start Date Expiration Date Visits Re quested Visits Authorized [id number] Closed 07/18/2023 08/16/2024 1 1 Encounter Details Date Type Department Care Team (Latest Contact Info) Description 07/31/2023 2:05 PM CONCRETE WALL GRINDER OPERATOR - 07/31/2023 11:59 PM CONCRETE WALL GRINDER OPERATOR Hospital Encounter [facility] [address] [place] [address] Malignant melanoma of unknown origin (HCC) Discharge Disposition: Discharge to home or self care Social History Tobacco Use Types Packs/Day Years Used Date Smoking Tobacco: Never Assessed Comments Unknown Sex and Gender Information Value Date Recorded Sex Assigned at Not on file Legal Sex Female 1:54 AM CONCRETE WALL GRINDER OPERATOR Gender Identity Not on file Sexual [...] Procedure Name Priority Date/Time Associated Diagnosis Comments MRI BRAIN W WO CONTRAST Schedule Routine, Read Routine (OP Routine) 07/31/2023 6:27 PM CONCRETE WALL GRINDER OPERATOR Malignant melanoma of unknown origin (HCC) documented in this encounter Results * MRI Brain W WO Contrast (07/31/2023 6:27 PM CONCRETE WALL GRINDER OPERATOR) Anatomical Region Laterality Modality Head and Neck N/A Magnetic Resonan ce 08/01/2023 8:31 AM CONCRETE WALL GRINDER OPERATOR Addenda Addendum by Zeenat Acosta MD on 08/01/2023 9:37 AM CONCRETE WALL GRINDER OPERATOR The results were discussed with Dr. Jose Chairez by Buster Blanca, Emergency Room Doctor on 08/01/2023 at 09:35 hours. Edited by: Buster Blanca Electronically signed by: Zeenat Alcala M.D. Impressions 08/01/2023 9:31 AM CONCRETE WALL GRINDER OPERATOR No MR evidence of intracranial metastases. Multiple [...] it. Electronically signed by: Zeenat Alcala M.D. Narrative 08/01/2023 9:31 AM CONCRETE WALL GRINDER OPERATOR EXAMINATION: Magnetic resonance imaging (MRI) of the brain and brainstem without and with contrast HISTORY: ??Malignant melanoma staging. TECHNIQUE: Multiplanar multi-weighted MRI of the brain and brainstem was performed without and with intravenous contrast using the general brain protocol. CONTRAST: 12 mL Gadoterate meglumine COMPARISON: PET CT 07/31/2023 FINDINGS: No acute intracranial infarct. No hemorrhage. No intracranial mass. No significant mass effect or midline shift. No hydrocephalus. Scattered and confluent foci of T2/FLAIR hyperintensity in the periventricular and subcortical white matter are nonspecific but likely represent chronic small vessel ischemic change. ??Right occipital lobe developmental venous anomaly. The pituitary and sella are normal. Corpus callosum is normal in shape. The brainstem and craniocervical junction are unremarkable. 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 The scalp and calvarium are normal. Normal orbits. Left maxillary sinus polypoid mucosal thickening and mucous retention cyst. Mastoids are clear. ??Degenerative changes of the bilateral temporomandibular joints, with acute enhancing synovitis on the right. Procedure Note Zeenat Acosta MD - 08/01/2023 EXAMINATION: Magnetic resonance imaging (MRI) of the brain and brainstem without and with contrast HISTORY: Malignant melanoma staging. TECHNIQUE: Multiplanar multi-weighted MRI of the brain and brainstem was performed without and with intravenous contrast using the general brain protocol. CONTRAST: 12 mL Gadoterate meglumine COMPARISON: PET CT 07/31/2023 FINDINGS: No acute intracranial infarct. No hemorrhage. No intracranial mass. No significant mass effect or midline shift. No hydrocephalus. Scattered and confluent foci of T2/FLAIR hyperintensity in the periventricular and subcortical white matter are nonspecific but likely represent chronic small vessel ischemic change. Right occipital lobe developmental venous anomaly. The pituitary and sella are normal. Corpus callosum is normal in shape. The brainstem and craniocervical junction are unremarkable. 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 The scalp and calvarium are normal. Normal orbits. Left maxillary sinus polypoid mucosal thickening and mucous retention cyst. Mastoids are clear. Degenerative changes of the bilateral temporomandibular joints, with acute enhancing synovitis on the right. IMPRESSION: No MR evidence of intracranial metastases. [...] it. Electronically signed by: Zeenat Alcala M.D. Jose Chairez MD PhD IMG MRI PROCEDURES E dited Result - Final documented in this encounter Visit Diagnoses Diagnosis Malignant melanoma of unknown origin (HCC) documented in this encounter Administered Medications Inactive Administered Medications - up to 3 most recent administrations Medication Order MAR Action Action Date Dose Rate Site gadoterate meglumine injection 15 mL 15 mL, intravenous, Once in imaging, contrast, Starting on 07/31/23 at 1751, For 1 dose Contrast Given 07/31/2023 6:01 PM CONCRETE WALL GRINDER OPERATOR 12 mL documented in this encounter Orders Medications Ordered That Stalin ht Not Have Been Administered Count Last Ordered Date First Ordered Date gadoterate meglumine injection 15 mL 1 07/13 documented in this encounter Care Teams Political Analyst Relationship Specialty Start Date End Date Becky Conroy NP [address] [place] [address] PCP - General Nurse Practitioner 07/06/23 documented as of this encounter
--- OUTSIDE RECORDS SUMMARY | 2024-09-17 04:23 | XMS_ITS | Encounter Summary ---
Author Organization [facility] Address [address] [place] [address] Phone Care Team Providers Care Commercial Insurance Underwriter Name Role Phone Becky Conroy NP Primary Care Provider [phone] Jose Chairez MD PhD Unavailable [phone]- [phone] Evelin Lofton MD Unavailable [phone] Encounter Details Date Type Department Care Team (Late st Contact Info) Description 08/17/2023 Telephone [facility] Oncology [address] [place] [address] Becca Maurice Social History Tobacco Use Types Packs/Day Years Used Date Smoking Tobacco: Former Cigarettes Smokeless Tobacco: Never Comments No Sex and Gender Information Value Date Recorded Sex Assigned at Not on file Legal Sex Female 1:54 AM MANAGER INTERNSHIP Gender Identity Not on file Sexual Orientation Not on file documented as of this encounter Miscellaneous Notes * Telephone Encounter - Becca Maurice - 08/17/2023 2:50 PM CST Called Magui back and let her know that Dr. Davis office would have to schedule the PET scan. Magui stated she would reach out to Elo with Dr. Davis. Also let her know that Dr. Chairez said yes she is fine to get the COVID booster prior to surgery. Magui verbalized understanding. GER INTERNSHIP documented in this encounter Plan of Treatment Not on file documented as of this encounter Visit Diagnoses Not on filedocumented in this encounter Care Teams Commercial Insurance Underwriter Relationship Specialty Start Date End Date Becky Conroy SHEEP HERDER [address] [place] [address] PCP - General Nurse Practitioner 07/06/23 Jose Chairez MD PhD [address] [facility] [address] [place] [address] Medical Oncologist/Residential Door Unit Installer Medical Oncology 08/14/23 Evelin Lofton MD [address] [place], [place] [address] Referring Physician Cardiovascular Disease 08/14/23 documented as of this encounter
--- OUTSIDE RECORDS SUMMARY | 2024-09-17 04:23 | XMS_ITS | Encounter Summary ---
Author Organization [facility] Address [address] [place] [address] Phone Care Team Providers Care Certified Genetic Counselor Name Role Phone Becky Conroy NP Primary Care Provider [phone] Jose Chairez MD PhD Unavailable [phone]- [phone] Evelin Lofton MD Unavailable [phone] Reason for Visit * Reason Onset Date Comments Discuss Test Results 10/18/2023 Encounter Details Date Type Department Care Team (Late st Contact Info) Description 10/18/2023 Telephone [facility] Surgery [facility] Advanced Medicine 5th [place] [address] [place] [address] Charu Goins, RN Discuss Test Results Social History Tobacco Use Types Packs/Day Years [...] on file Legal Sex Female 1:54 AM AQUATICS GROUP FITNESS INSTRUCTOR Gender Identity Not on file Sexual Orientation Not on file documented as of this encounter Miscellaneous Notes * Telephone Encounter - Charu Goins RN - 10/18/2023 2:08 PM AQUATICS GROUP FITNESS INSTRUCTOR Called patient and advised of pathology results showing NO viable tumor in any of her excised tissue/lymph nodes. Pt reports drain is still draining a moderate to large amount of fluid and does require frequent stripping to remain patent. No concerns at this time regarding surgical incision or drain site. TICS GROUP FITNESS INSTRUCTOR * Telephone Encounter - Charu Goins RN - 10/18/2023 2:03 PM AQUATICS GROUP FITNESS INSTRUCTOR ----- Message from Landon Davis MD sent at 10/17/2023 10:11 PM AQUATICS GROUP FITNESS INSTRUCTOR ----- Ryan team - Please let Ms. Baker know the good news on her pathology report. No viable tumor, great report. Check and see how drain is doing, please. Keith WILSON TICS GROUP FITNESS INSTRUCTOR documented in this encounter Plan of Treatment Not on file documented as of this encounter Visit Diagnoses Not on filedocumented in this encounter Care Teams Certified Genetic Counselor Relationship Specialty Start Date End Date Becky Conroy NP [address] [place] [address] PCP - General Nurse Practitioner 07/06/23 Jose Chairez MD PhD [address] [facility] [address] [place], [place] [id number] Medical Oncologist/Retail Special Event Associate Medical Oncology 08/14/23 Evelin Lofton MD [address] [place] [address] Referring Physician Cardiovascular Disease 08/14/23 documented as of this encounter
--- OUTSIDE RECORDS SUMMARY | 2024-09-17 04:23 | XMS_ITS | Encounter Summary ---
Author Organization [facility] Address [address] [place] [address] Phone Care Team Providers Care Public Relations Associate Name Role Phone Becky Conroy NP Primary Care Provider [phone] Reason for Visit * Episode Based Medications (Routine) - Closed Specialty Diagnoses / Procedures Referred By Contmarques t Referred To Contact Oncology Diagnoses Malignant melanoma of unknown origin (HCC) Jose Chairez MD PhD [address] [facility] [address] [place] [address] Phone: tel: fax: [address] [address] Phone: tel: fax: Referral ID Status Reason Start Date Expiration Date Visits Re quested Visits Authorized [id number] Closed 05/27/2024 09/04/2024 1 30 Encounter Details Date Type Department Care Team (Late st Contact Info) Description 08/08/2023 10:15 AM HEMMER CHAINSTITCH Lab [facility] Oncology [address] [place] [phone] Malignant melanoma of unknown origin (HCC) Social History Tobacco Use Types Packs/Day Years Used Date Smoking Tobacco: Never Smokeless Tobacco: Never Comments Unknown Sex and Gender Information Value Date Recorded Sex Assigned at Not on file Legal Sex Female 1:54 AM HEMMER CHAINSTITCH Gender Identity Not on file Sexual Orientation Not on file documented as of this encounter Plan of Treatment Not on file documented as of this encounter Visit Diagnoses Diagnosis Malignant melanoma of unknown origin (HCC) documented in this encounter Orders Appointment Requests Count Last Ordered Date Fi rst Ordered Date ONCBCN LAB APPOINTMENT 1 08/08/2023 documented in this encounter Care Teams Public Relations Associate Relationship Specialty Start Date End Date Becky Conroy NP [address] [place] [address] PCP - General Nurse Practitioner 07/06/23 documented as of this encounter
--- OUTSIDE RECORDS SUMMARY | 2024-09-17 04:23 | XMS_ITS | Encounter Summary ---
Author Organization [facility] Address [address] [place] [address] Phone Care Team Providers Care Dental Technician Instructor Name Role Phone Becky Conroy NP Primary Care Provider [phone] Jose Chairez MD PhD Unavailable +1- [phone] Evelin Lofton MD Unavailable [phone] Encounter Details Date Type Department Care Team (Late st Contact Info) Description 08/30/2023 Telephone [facility] [address] [place] [address] Becca Maurice Social History Tobacco Use Types [...] on file Legal Sex Female 1:54 AM BOBBIN WINDER Gender Identity Not on file Sexual Orientation Not on file documented as of this encounter Miscellaneous Notes * Telephone Encounter - Becca Maurice - 08/30/2023 12:06 PM CST Attempted to return Magui's call about questions about getting a port. Left message for her to call back. Spoke with Magui, discussed port placement. Discussed that if they take out lymph nodes that generally we don't do sticks on that arm due to the risk of lymphedema. Discussed importance of being hydrated all the time, but especially day of treatment, to drink lots of water and non caffeine beverages. Let her know talk to the nurse who took care of her and she said she thought that her right arm looked like they could start IV on it. Asked if she would like to try one ore time and see how it goes before getting port. Magui stated she would like to wait and see how the next treatment went. Let her know would go ahead and order the labs needed for the port placement to be drawn so that is done if she decides to go ahead and get a port. Magui verbalized understanding. IN WINDER IN WINDER documented in this encounter Plan of Treatment Not on file documented as of this encounter Results * Protime-INR (09/19/2023 10:00 AM BOBBIN WINDER) PT 11.5 10.3 - 13.7 sec [facility] INR 1.01 0.90 - 1.20 [facility] Comment: Interpretive data Oral anticoagulant therapeutic ranges: Venous thromboembolism prophylaxis or treatment: 2.0-3.0 CARDIOLOGY Standard range: 2.0-3.0 High-intensity range: 2.5-3.5 Refer to indication-specific guidelines for appropriate target ranges for prosthetic heart valve replacement. Current interpretive data was last revised on 2019. 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
--- OUTSIDE RECORDS SUMMARY | 2024-09-17 04:23 | XMS_ITS | Encounter Summary ---
Author Organization [facility] Address [address] [place] [address] Phone Care Team Providers Care Rolled Oats Mill Operator Name Role Phone Becky Conroy NP Primary Care Provider [phone] Jose Chairez MD PhD Unavailable [phone] Evelin Lofton MD Unavailable [phone] Reason for Visit * Consultation (Routine) - Closed Specialty Diagnoses / Procedures Referred By Contmarques t Referred To Contact Neurosurgery Diagnoses Malignant melanoma of unknown origin (HCC) Jose Chairez MD PhD [address] [facility] [address] [place] [address] Phone: tel: fax: [facility] (All Locations) Referral ID Status Reason Start Date Expiration Date V isits Requested Visits Authorized [id number] Closed Specialty Services Required 08/01/2023 08/30/2024 1 1 Encounter Details Date Type Department Care Team (Late st Contact Info) Description 08/24/2023 1:00 PM WASTEWATER DESIGN ENGINEER Office Visit [facility] [address] [facility] Advanced Medicine 6th [place] [address] [place] [address] Sukumar Whipple MD [address] [place] [address] Malignant melanoma of unknown origin (HCC) Social [...] on file Legal Sex Female 1:54 AM WASTEWATER DESIGN ENGINEER Gender Identity Not on file Sexual Orientation Not on file documented as of this encounter Last Filed Vital Signs Vital Sign Reading Time Taken Comments Blood Pressure 151/74 08/24/2023 1:10 PM WASTEWATER DESIGN ENGINEER Pulse 76 08/24/2023 1:10 PM WASTEWATER DESIGN ENGINEER Temperature - - Respiratory Rate - - Oxygen Saturation - - Inhaled Oxygen Concentration - - Weight 67.8 kg (149 lb 6.4 oz) 08/24/2023 1:10 P M WASTEWATER DESIGN ENGINEER Height 157.5 cm (5' 2 ) 08/24/2023 1:10 PM WASTEWATER DESIGN ENGINEER Body Mass Index 27.33 08/24/2023 1:10 PM WASTEWATER DESIGN ENGINEER documented in this encounter Progress Notes * Sukumar Whipple MD - 08/24/2023 12:00 AM CST Patient: GUEVARA BAKER : 1945 BENJAMIN: 08/24/2023 CHIEF COMPLAINT: Intracranial stenosis. HISTORY OF PRESENT ILLNESS: Ms. Baker is an 78-year-old female with recently diagnosed melanoma, who underwent a staging MRIof the brain with and without contrast. This was concerning for possible left vertebral arteries and basilar artery stenosis. She was therefore referred to us. She denies any headaches. She denies any focal weakness or sensory changes. She denies any dizziness. She denies any double vision. She hasnot had a history of stroke or TIA. She has had myocardial infarction in the past. PAST MEDICAL HISTORY: 1. Hypertension. 2. Coronary artery disease and myocardial infarction. 3. Dyslipidemia. 4. Malignant melanoma of axilla. 5. Osteoarthritis. PAST SURGICAL HISTORY: 1. Appendectomy. 2. Cholecystectomy. 3. Sling operation for stress incontinence. 4. Abdominal hysterectomy. 5. Tonsillectomy. MEDICATIONS: 1. Plavix. 2. Enalapril. 3. Vitamin D2. 4. Nexium. 5. Lasix. 6. Hydrochlorothiazide. 7. Mobic. 8. Toprol-XL. 9. Mupirocin. 10. Franklin-3 fatty acids. 11. Potassium chloride. 12. Compazine. 13. Crestor. 14. Zinc gluconate. 15. Biotin. MEDICATION ALLERGIES: No known drug allergies. SOCIAL HISTORY: She is a former smoker. No significant alcohol use or use of illicit drugs. FAMILY HISTORY: Noncontributory. REVIEW OF SYSTEMS: CONSTITUTIONAL: Negative for anorexia, appetite change, chills, fatigue, fevers, malaise, night sweats, sleep disturbance, weight gain and weight loss. EYES: Negative for double vision, visual disturbance and visual loss. EARS, NOSE, MOUTH, THROAT, AND FACE: Negative for ear drainage, hearing loss, loss of smell or taste, nasal congestion, tinnitus and vertigo. CARDIOVASCULAR: Negative for chest pain, irregular heart beat, palpitations and syncope. GASTROINTESTINAL: Negative for dyspepsia, vomiting, diarrhea, blood in stool. RESPIRATORY: Negative for shortness of breath, wheezing. GENITOURINARY: Negative for change in bladder habits, kidney stones or recent infection. HEMATOLOGIC/LYMPHATIC: Negative for anemia, bleeding and easy bruising. NEUROLOGICAL: See HPI. MUSCULOSKELETAL: Negative for back pain, muscle weakness, neck pain and radiating pain. ENDOCRINE: Negative for cold intolerance, excessive or decreased sweating, fertility problems, heatintolerance, polydipsia, polyphagia, temperature intolerance, thyroid disease and weight loss. PHYSICAL EXAM: VITAL SIGNS: Patient is afebrile. Vitals are stable. NEUROLOGICAL EXAM: MENTAL STATUS: The patient was alert and oriented to person, place and time. SPEECH: There was normal language pattern, attention span and general fund of knowledge. Repetitionintact, naming three out of three. CRANIAL NERVES: II: Visual camacho were normal. Visual acuity was grossly normal. III, IV and : The pupils were equal and reactive to light and accommodation. Extraocular movements were intact. There was no ptosis or nystagmus. There was normal convergence. There was no evidenceof Kirstin's syndrome. V: Facial sensation was normal. VII: Facial strength was normal. There was no ptosis. VIII: Hearing was intact bilaterally. IX, X: The palate elevated in the midline. There was no hoarseness, and volume was normal. XI: There was no atrophy/weakness of the sternocleidomastoid or trapezius. Shoulder elevation was symmetric. XII: The tongue protruded in the midline. There was no atrophy or fasciculation. MOTOR: There was no upper or lower extremity weakness, atrophy or fasciculations. There was normal tone. DEEP TENDON REFLEXES: The reflexes were bilaterally symmetric throughout. Babinski and Hutchinson's signs were negative. There was no ankle clonus. SENSATION: Light touch and pinprick sensation was normal. CEREBELLAR: There was no nystagmus, dysmetria or dyskinesia. Voice allison was normal. GAIT AND STATION: Gait and station steady. There was no limp or ataxia. Tandem gait was normal. IMAGING: I reviewed the MRI brain with and without contrast from 07/31/2023. This demonstrates possible irregularity and stenosis of the basilar artery and left distal vertebral artery in the V4 segment. ASSESSMENT AND PLAN: Ms. Baker is an 78-year-old [...] now. I will see her as needed. ELECTRONICALLY SIGNED - 08/25/2023 09:17 AM Sukumar Whipple M.D. Powder Worker of Neurosurgery, Neurology, and Radiology [facility], [place], [place] Dictated, but not thoroughly reviewed; may be subject to grappler variances. ALEXEY/adrienne EWATER DESIGN ENGINEER documented in this encounter Plan of Treatment Not on file documented as of this encounter Visit Diagnoses Diagnosis Malignant melanoma of unknown origin (HCC) documented in this encounter Historical Medications * This list may reflect changes made after this encounter. mupirocin (BACTROBAN) 2 % ointmentIndicati ons:Minor Bacterial Skin Infections Apply topically as needed 08/15/2023 added in this encounter Orders Outpatient Referral Count Last Ordered Date Fir st Ordered Date AMB REFERRAL TO NEUROSURGERY 1 08/24/2023 documented in this encounter Care Teams Rolled Oats Mill Operator Relationship Specialty Start Date End Date Becky Conroy NP [address] [place] [address] PCP - General Nurse Practitioner 07/06/23 Jose Chairez MD PhD [address] [facility] [address] [place], [place] [id number] Medical Oncologist/Hollow Tile Partition Erector Medical Oncology 08/14/23 Evelin Lofton MD [address] [place] [address] Referring Physician Cardiovascular Disease 08/14/23 documented as of this encounter
--- OUTSIDE RECORDS SUMMARY | 2024-09-17 04:23 | XMS_ITS | Encounter Summary ---
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 Favorable treatment response evidenced by marked [...] Gil MD, Ph.D Narrative 10/04/2023 4:02 PM REHABILITATION LIAISON EXAMINATION: TUMOR FDG-PET/CT IMAGING DATE OF STUDY: [...] obtained. ??The study was interpreted on the [employer] workstation. The mean liver SUV (reported for water quality tester purposes) is 2.7. ?? The total scanned [...] obtained. The study was interpreted on the [employer] workstation. The mean liver SUV (reported for water quality tester purposes) is 2.7. The total scanned area [...] Lorie Gil MD, Ph.D Landon Davis MD IMG PET PROCEDURES Final Result documented in this encounter Visit Diagnoses Not on filedocumented in this encounter Care Teams Edge Polisher Relationship Specialty Start Date End Date Becky Conroy NP [address] [place] [address] PCP - General Nurse Practitioner 07/06/23 Jose Chairez MD PhD [address] [facility] [address] [place], [place] [id number] Medical Oncologist/Client Portfolio Manager Medical Oncology 08/14/23 Evelin Lofton MD [address] [place] [address] Referring Physician Cardiovascular Disease 08/14/23 documented as of this encounter
--- OUTSIDE RECORDS SUMMARY | 2024-09-17 04:23 | XMS_ITS | Encounter Summary ---
Author Organization [facility] Address [address] [facility] [address] [place] [address] Phone Care Team Providers Care Keno Attendant Name Role Phone Becky Conroy NP Primary Care Provider [phone] Reason for Referral * Consultation (Routine) - Closed Specialty Diagnoses / Procedures Referred By Contmarques t Referred To Contact Surgical Oncology Diagnoses Malignant melanoma of unknown origin (HCC) Jose Chairez MD PhD [address] [facility] [address] [place] [address] Phone: tel: fax: Yariel Davis MD [address] [facility] [phone] [place] [address] Phone: tel: fax: Referral ID Status Reason Start Date Expiration Date V isits Requested Visits Authorized [id number] Closed Specialty Services Required 07/18/2023 08/16/2024 1 1 Question Answer Reason for surgical referral: Other (see comments) - melanoma Please select the performing region: [facility] (All Locations) [[id number]] To provider: YARIEL DAVIS [[id number]] # of visits: 1 Comments Per messages with Dr. Chariez TAL CAMERA TECHNICIAN Encounter Details Date Type Department Care Team (Late st Contact Info) Description 07/18/2023 Orders Only [facility] Oncology [address] [place] [address] Jose Chairez MD PhD [address] [facility] [address] [place], [place] [id number] Malignant melanoma of unknown origin (HCC) (Primary Dx) Social History Tobacco Use Types Packs/Day Years Used Date Smoking Tobacco: Never Assessed Comments Unknown Sex and Gender Information Value Date Recorded Sex Assigned at Not on file Legal Sex Female 1:54 AM DIGITAL CAMERA TECHNICIAN Gender Identity Not on file Sexual Orientation Not on file documented as of this encounter Plan of Treatment Scheduled Referrals Name Type Priority Associated Diagnoses Order Schedule Ambulatory referral to Surgical Oncology Outpatient Referral Routine Malignant melanoma of unknown origin (HCC) Expected: 08/01/2023 (Approximate), Expires: 07/18/2024 documented as of this encounter Visit Diagnoses Diagnosis Malignant melanoma of unknown origin (HCC)- Primary documented in this encounter Care Teams Keno Attendant Relationship Specialty Start Date End Date Becky Conroy NP [address] [place] [address] PCP - General Nurse Practitioner 07/06/23 documented as of this encounter
--- OUTSIDE RECORDS SUMMARY | 2024-09-17 04:23 | XMS_ITS | Encounter Summary ---
Author Organization [facility] Address [address] [place] [address] Phone Care Team Providers Care Booster Assembler Name Role Phone Becky Conroy NP Primary Care Provider [phone] Jose Chairez MD PhD Unavailable [phone] Evelin Lofton MD Unavailable [phone] Encounter Details Date Type Department Care Team (Late st Contact Info) Description 08/24/2023 Orders Only [facility] Neurosurgery [address] [facility] Advanced Medicine 6th [place] [address] [place] [address] Sukumar Whipple MD [address] [place], [place] [id number] Malignant melanoma of unknown origin (HCC) (Primary [...] on file Legal Sex Female 1:54 AM HEEL LAYER Gender Identity Not on file Sexual Orientation Not on file documented as of this encounter Plan of Treatment Not on file documented as of this encounter Visit Diagnoses Diagnosis Malignant melanoma of unknown origin (HCC)- Primary documented in this encounter Care Teams Booster Assembler Relationship Specialty Start Date End Date Becky Conroy TECHNOLOGY AND ENGINEERING TEACHER [address] [place] [address] PCP - General Nurse Practitioner 07/06/23 Jose Chairez MD PhD [address] [facility] [address] [place], [place] [id number] Medical Oncologist/Career Resource Specialist Medical Oncology 08/14/23 Evelin Lofton MD [address] [place] [address] Referring Physician Cardiovascular Disease 08/14/23 documented as of this encounter
--- OUTSIDE RECORDS SUMMARY | 2024-09-17 04:23 | XMS_ITS | Encounter Summary ---
Author Organization [facility] Address [address] [place] [address] Phone Care Team Providers Care Field Test Engineer Name Role Phone Becky Conroy NP Primary Care Provider [phone] Jose Chairez MD PhD Unavailable [phone]- [phone] Evelin Lofton MD Unavailable Reason for Visit * Episode Based Medications (Routine) - Closed Specialty Diagnoses / Procedures Referred By Contac t Referred To Contact Oncology Diagnoses Malignant melanoma of unknown origin (HCC) Jose Chairez MD PhD [address] [facility] [address] [place] [address] Phone: tel: fax: [facility] [address] [place] [address] Phone: tel: fax: Referral ID Status Reason Start Date Expiration Date Visits Re quested Visits Authorized [id number] Closed 05/27/2024 09/04/2024 1 30 Encounter Details Date Type Department Care Team (Late st Contact Info) Description 09/19/2023 12:15 PM IT INFRASTRUCTURE MANAGER Infusion [facility] Oncology [address] [place] [address] Malignant melanoma of unknown origin (HCC) [...] on file Legal Sex Female 1:54 AM IT INFRASTRUCTURE MANAGER Gender Identity Not on file Sexual Orientation Not on file documented as of this encounter Nursing Notes * Dominique Dale RN - 09/19/2023 12:15 PM CST Oncology Nursing Note [facility] ONCOL[facility]Y Magui Baker is a 78 y.o. female who presents for treatment cycle 3 day 1 of Keytruda. Pre-treatment Nursing Assessment Nursing Assessment LOC: Alert, Awake Constitutional: Fatigue Fatigue: Constant Any falls since your last visit?: No Orientation: Oriented x4 Behavior: Calm Speech: Clear Language: No aphasia Vision: At baseline Peripheral Neuropathy: No Oral Mucosa Grade: Normal (0) Shortness of Breath?: No Appetite: Fair Nausea/Vomiting: Yes (prn antinausea meds) Swelling: No Patient states she has a generalized rash that Dr. Chairez is aware of and prescribed a cream. She states it's tolerable. BP: 149/82 Temp: 36.5 ??C (97.7 ??F) Temp src: Oral Pulse: 69 Resp: 17 SpO2: 92 % Weight: 67 kg (147 lb 12.8 oz) Pain Score: 0 - [...] Ambulatory Accompanied by: Friend Discharged To: Home INFRASTRUCTURE MANAGER documented in this encounter Plan of Treatment [...] mL/hr, Administer over 30 Minutes, Once, On Mon09/19/23 at 1215, For 1 dose, Use 0.2-5 micron filter, low-sorbing, low protein binding.Indications:Malignan t melanoma of unknown origin (HCC) New Bag 09/19/2023 11:43 AM IT INFRASTRUCTURE MANAGER 200 mg 216 mL/hr documented in this encounter Orders Medications Ordered That Stalin ht Not Have Been Administered Count Last Ordered Date First Ordered Date pembrolizumab (KEYTRUDA) 200 mg in sodium chloride 0.9% 100 mL IVPB 1 09/19/2023 Nursing Count Last Ordered Date First Orde red Date ONCBCN TREATMENT PARAMETERS 3 1 09/19/2023 Appointment Requests Count Last Ordered Date Fi rst Ordered Date ONCBCN RETURN CHEMO 1.5HRS 1 09/19/2023 documented in this encounter Care Teams Field Test Engineer Relationship Specialty Start Date End Date Becky Conroy NP [address] [place] [address] PCP - General Nurse Practitioner 07/06/23 Jose Chairez MD PhD [address] [facility] [address] [place] [address] Medical Oncologist/Entry Level Chemist Medical Oncology 08/14/23 Evelin Lofton MD [address] [place] [address] Referring Physician Cardiovascular Disease 08/14/23 documented as of this encounter
--- OUTSIDE RECORDS SUMMARY | 2024-09-17 04:23 | XMS_ITS | Encounter Summary ---
Author Organization [facility] Address [address] [place] [address] Phone Care Team Providers Care Sleep Lab Technician Name Role Phone Becky Conroy NP Primary Care Provider [phone] Encounter Details Date Type Department Care Team (Late st Contact Info) Description 08/09/2023 Telephone [facility] [address] [place] [address] Frida Hutchinson, RN Social History Tobacco Use Types Packs/Day Years Used Date Smoking Tobacco: Never Smokeless Tobacco: Never Comments Unknown Sex and Gender Information Value Date Recorded Sex Assigned at Not on file Legal Sex Female 1:54 AM HOT DIP PLATER Gender Identity Not on file Sexual Orientation Not on file documented as of this encounter Miscellaneous Notes * Telephone Encounter - Frida Hutchinson RN - 08/09/2023 3:44 PM HOT DIP PLATER Post Initial Treatment Call Date of Treatment:08/08/23 Drug(s) received:Pembrolizumab Spoke with: patient Issues identified: Nausea X 1. Not enough to take anything Eating and Drinking well:yes Questions or concerns:May have lost wallet card. Will give a new one. Notified [place] or Md:no Encouraged to call with any questions or concerns. Reviewed next appointment DIP PLATER documented in this encounter Plan of Treatment Not on file documented as of this encounter Visit Diagnoses Not on filedocumented in this encounter Care Teams Sleep Lab Technician Relationship Specialty Start Date End Date Becky Conroy NP [address] [place] [address] PCP - General Nurse Practitioner 07/06/23 documented as of this encounter
--- OUTSIDE RECORDS SUMMARY | 2024-09-17 04:23 | XMS_ITS | Encounter Summary ---
Author Organization [facility] Address [address] [place] [address] Phone Care Team Providers Care Glass Technician/Installer Name Role Phone Becky Conroy NP Primary Care Provider [phone] Jose Chairez MD PhD Unavailable [phone]- [phone] Evelin Lofton MD Unavailable [phone] Reason for Visit * Episode Based Medications (Routine) - Closed Specialty Diagnoses / Procedures Referred By Contac t Referred To Contact Oncology Diagnoses Malignant melanoma of unknown origin (HCC) Jose Chairez MD PhD [address] [facility] [address] [place] [address] Phone: tel: fax: [facility] [address] [address] Phone: tel: fax: Referral ID Status Reason Start Date Expiration Date Visits Re quested Visits Authorized [id number] Closed 05/27/2024 09/04/2024 1 30 Encounter Details Date Type Department Care Team (Late st Contact Info) Description 08/29/2023 9:00 AM CAFETERIA MONITOR Office Visit [facility] Oncology [address] [place] [phone] Jose Chairez MD PhD [address] [facility] [address] [place] [address] Malignant melanoma of unknown origin [...] on file Legal Sex Female 1:54 AM CAFETERIA MONITOR Gender Identity Not on file Sexual Orientation Not on file documented as of this encounter Last Filed Vital Signs Vital Sign Reading Time Taken Comments Blood Pressure 159/71 08/29/2023 8:50 AM CAFETERIA MONITOR Pulse 71 08/29/2023 8:50 AM CAFETERIA MONITOR Temperature - - Respiratory Rate 16 08/29/2023 8:50 AM CAFETERIA MONITOR Oxygen Saturation 96% 08/29/2023 8:50 AM CAFETERIA MONITOR Inhaled Oxygen Concentration - - Weight 68.2 kg (150 lb 6.4 oz) 08/29/2023 8:50 A M CAFETERIA MONITOR Height - - Body Mass Index 27.51 08/24/2023 1:10 PM CAFETERIA MONITOR documented in this encounter Ordered Prescriptions Prescription Sig Dispense Quantity Refills Last Filled Start Date End Date triamcinolone (KENALOG) 0.1 % cream Apply topically 2 (two) times a day 80 g 3 08/29/2023 4 documented in this encounter Progress Notes * Jose Chairez MD PhD - 08/29/2023 9:00 AM CST Oncology Progress Note Cancer [...] Day Cycles Current day: Day 1, Cycle 2 (Started on 08/29/2023; Originally planned for 08/29/2023) Following planned day: Day 1, Cycle 3 (Planned for 09/19/2023) Subjective Interval History Magui Sophia Baker presents for ongoing management of melanoma. Notes some fatigue and poor sleep but overall no major change in medical status. Saw Dr. Davis and is planning for surgery. Notes general skin itchiness, most prominent on arms B. Presents with daughter today. No Known Allergies Outpatient Encounter Medications as of 08/29/2023: biotin 2,500 mcg capsule, Take 2 tablets by mouth daily (Patient not taking: Reported on 08/24/2023), Disp: , Rfl: clopidogreL (PLAVIX) 75 mg tablet, Take 1 tablet (75 mg total) by mouth daily, Disp: , Rfl: enalapril (VASOTEC) 10 mg tablet, Take 1 tablet (10 mg total) by mouth 2 (two) times a day, Disp: ,Rfl: ergocalciferol, vitamin D2, 10 mcg (400 unit) tablet, Take 1 tablet by mouth daily, Disp: , Rfl: esomeprazole DR (NexIUM) 40 mg capsule, Take 1 capsule (40 mg total) by mouth as needed, Disp: , Rfl: furosemide (LASIX) 20 mg tablet, 1 tablet (20 mg total), Disp: , Rfl: hydroCHLOROthiazide (HYDRODIURIL) 25 mg tablet, Take 1 tablet (25 mg total) by mouth daily, Disp: ,Rfl: meloxicam (MOBIC) 7.5 mg tablet, Take 1 tablet (7.5 mg total) by mouth daily, Disp: , Rfl: metoprolol XL (TOPROL-XL) 50 mg extended release tablet, Take 1 tablet (50 mg total) by mouth daily, Disp: , Rfl: mupirocin (BACTROBAN) 2 % ointment, APPLY DAILY TO OPEN WOUNDS, Disp: , Rfl: omega-3 fatty acids 500 [...] MOUTH NIGHTLY AT BEDTIME., Disp: , Rfl: triamcinolone (KENALOG) 0.1 % cream, Apply topically 2 (two) times a day, Disp: 80 g, Rfl: 3 zinc gluconate 50 mg tablet, Take 1 tablet (50 mg total) by mouth daily, Disp: , Rfl: No facility-administered encounter medications on file as of 08/29/2023. Review of Systems: Review of systems per HPI and otherwise all other systems are negative Performance Status: ECOG 0 Objective Vitals: Most Recent : BP: 159/71 Pulse: 71 Resp: 16 SpO2: [...] 72 hour(s)) Comprehensive metabolic panel Collection Time: 08/29/23 8:15 AM Result Value Ref Range Sodium 143 135 - 145 mmol/L Potassium, pl 3.4 3.3 - 4.9 mmol/L Chloride 103 97 - 110 mmol/L CO2 31 22 - 32 mmol/L Anion gap 9 2 - 15 mmol/L BUN 19 6 - 25 mg/dL Creatinine 0.57 (L) 0.60 - 1.10 mg/dL Glucose 110 70 - 199 mg/dL Calcium 9.8 8.5 - 10.3 mg/dL Bilirubin, total 0.4 0.1 - 1.2 mg/dL Protein, pl 8.1 6.5 - 8.5 g/dL Albumin 4.7 3.5 - 5.0 g/dL Alk phos 53 40 - 130 Units/L ALT 25 7 - 45 Units/L AST 27 10 - 45 Units/L CBC with auto differential Collection Time: 08/29/23 8:15 AM Result Value Ref Range WBC 8.8 3.8 - 9.9 K/cumm Hgb 13.6 11.9 - 15.5 g/dL Hct 41.5 35.6 - 45.5 % Plt 246 150 - 400 K/cumm MPV 9.7 9.1 - 12.3 fL RBC 4.68 3.90 - 5.20 M/cumm MCV 88.7 81.3 - 96.4 fL MCH 29.1 27.1 - 33.3 pg MCHC 32.8 32.3 - 35.7 g/dL RDW CV 12.6 11.1 - 14.9 % RDW SD 41.2 35.7 - 48.1 fL NRBC abs 0.00 0.00 - 0.01 K/cumm Lactate dehydrogenase (LD) Collection Time: 08/29/23 8:15 AM Result Value Ref Range Lactate dehydrogenase (LDH) 221 100 - 250 Units/L TSH reflex to free T4 Collection Time: 08/29/23 8:15 AM Result Value Ref Range TSH 0.11 (L) 0.30 - 4.20 mcIUnit/mL Differential, auto Collection Time: 08/29/23 8:15 AM Result Value Ref Range Neutrophil abs 4.6 1.5 - 6.5 K/cumm Imm gran abs 0.0 0.0 - 0.1 K/cumm Lymphocyte abs 2.9 0.8 - 3.3 K/cumm Monocyte abs 0.8 0.2 - 0.8 K/cumm Eosinophil abs 0.4 0.0 - 0.5 K/cumm Basophil abs 0.1 0.0 - 0.1 K/cumm Neutrophil pct 51.8 % Imm gran pct 0.3 % Lymphocyte pct 33.3 % Monocyte pct 8.9 % Eosinophil pct 4.7 % Basophil pct 1.0 % eGFR Collection Time: 08/29/23 8:15 AM Result Value Ref Range eGFR >90 >=60 mL/min/1.73 m2 T4, free Collection Time: 08/29/23 8:15 AM Result Value Ref Range Free T4 1.45 0.90 - 1.70 ng/dL Radiology: MRI Brain W WO Contrast Addendum Date: 08/01/2023 The results were discussed with Dr. Jose Chairez by Buster Blanca, Physiological Chemist on 08/01/2023 at 09:35 hours. Edited by: [...] axillary met. Continue with neoadjuvant pembro, cycle 2 today. Planned cycle 3 in 3 weeks. Restaging PET prior toplanned surgery with Dr. Davis 10/11. Resume pembro post surgery 2-3 weeks later. Monitor small lung nodule on subsequent scans. MRI brain - no evidence of melanoma mets, which is great news. 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 RecCTA which is pending. Will also have pre-op eval if plans for surgery. ROV 3 weeks to continue pembro. Restaging PET pre-op. All questions answered. Reiterated that I remain available for additional questions that may arise going forward. TERIA MONITOR documented in this encounter Plan of Treatment Not on file documented as of this encounter Results * Comprehensive metabolic panel (10/24/2023 8:17 AM CAFETERIA MONITOR) Sodium 143 135 - 145 mmol/L [facility] Comment:Testing performed by : [facility], [address] [place] [address] Potassium, pl 3.3 3.3 - 4.9 mmol/L [facility] Chloride 105 97 - 110 mmol/L [facility] CO2 28 22 - 32 mmol/L [facility] Anion gap 10 2 - 15 mmol/L [facility] BUN 17 6 - 25 mg/dL [facility] Creatinine 0.68 0.60 - 1.10 mg/dL [facility] Glucose 113 70 - 199 mg/dL [facility] Comment: Interpretive Data Fasting glucose >/= 126 [...] 2022. Calcium 10.0 8.5 - 10.3 mg/dL [facility] Bilirubin, total 0.4 0.1 - 1.2 mg/dL [facility] Protein, pl 7.2 6.5 - 8.5 g/dL [facility] Albumin 4.1 3.5 - 5.0 g/dL [facility] Alk phos 46 40 - 130 Units/[facility] ALT 19 7 - 45 Units/L [facility] AST 19 10 - 45 Units/L [facility] Blood 10/24/2023 8:17 AM CAFETERIA MONITOR 10/24/2023 8:18 AM CAFETERIA MONITOR Jose Chairez MD PhD LAB BLOOD ORDERABLES Final Result [facility] Department [place] [address] * CBC with auto differential (10/24/2023 8:17 AM CAFETERIA MONITOR) WBC 8.8 3.8 - 9.9 K/cumm [facility] Comment:Testing performed by : [address] [address] Hgb 13.1 11.9 - 15.5 g/dL [facility] Comment:Testing performed by : [address] [address] Hct 39.2 35.6 - 45.5 % [facility] Comment:Testing performed by : [address] [address] Plt 237 150 - 400 K/cumm [facility] Comment:Testing performed by : [address] [address] MPV 9.5 9.1 - 12.3 fL [facility] RBC 4.47 3.90 - 5.20 M/cumm [facility] MCV 87.7 81.3 - 96.4 fL [facility] MCH 29.3 27.1 - 33.3 pg [facility] MCHC 33.4 32.3 - 35.7 g/dL [facility] RDW CV 13.0 11.1 - 14.9 % [facility] RDW SD 41.9 35.7 - 48.1 fL [facility] NRBC abs 0.00 0.00 - 0.01 K/cumm [facility] Blood 10/24/2023 8:17 AM CAFETERIA MONITOR 10/24/2023 8:18 AM CAFETERIA MONITOR us Jose Chairez MD PhD LAB BLOOD ORDERABLES Final Result Performing Organization Address [facility] Co de Phone Number [facility] [place] [address] * Lactate dehydrogenase (LD) (10/24/2023 8:17 AM CAFETERIA MONITOR) Lactate dehydrogenase (LDH) 179 100 - 250 Units/L [facility] Comment:Testing performed by : [facility], [address] [place] [address] Blood 10/24/2023 8:17 AM CAFETERIA MONITOR 10/24/2023 8:18 AM CAFETERIA MONITOR us Jose Chairez MD PhD LAB BLOOD ORDERABLES Final Result Performing Organization Address [facility] Co de Phone Number [facility] Department [place] [address] * (ABNORMAL) Thyroid Function [place] (10/24/2023 8:17 AM CAFETERIA MONITOR) TSH <0.01(L) 0.30 - 4.20 mcIUnit/mL [facility] Blood 10/24/2023 8:17 AM CAFETERIA MONITOR 10/24/2023 9:31 AM CAFETERIA MONITOR oJse Chairez MD PhD LAB BLOOD ORDERABLES Final Result Performing Organization Address City/[facility] Co de Phone Number [facility] Department [place] [address] * (ABNORMAL) Comprehensive metabolic panel (09/19/2023 10:00 AM CAFETERIA MONITOR) Sodium 142 135 - 145 mmol/L [facility] Comment:Testing performed by : [facility], [address] [place] [address] Potassium, pl 3.8 3.3 - 4.9 mmol/L [facility] Chloride 105 97 - 110 mmol/L [facility] CO2 29 22 - 32 mmol/L [facility] Anion gap 8 2 - 15 mmol/L [facility] BUN 22 6 - 25 mg/dL [facility] Creatinine 0.87 0.60 - 1.10 mg/dL [facility] Glucose 107 70 - 199 mg/dL [facility] Comment: Interpretive Data Fasting glucose >/= 126 [...] 2022. Calcium 10.4(H) 8.5 - 10.3 mg/dL [facility] Bilirubin, total 0.3 0.1 - 1.2 mg/dL [facility] Protein, pl 7.7 6.5 - 8.5 g/dL [facility] Albumin 4.7 3.5 - 5.0 g/dL [facility] Alk phos 49 40 - 130 Units/L [facility] ALT 22 7 - 45 Units/L [facility] AST 23 10 - 45 Units/L [facility] Blood 09/19/2023 10:0 0 AM CAFETERIA MONITOR 09/19/2023 10:00 AM CAFETERIA MONITOR us Jose Chairez MD PhD LAB BLOOD ORDERABLES Final Result Performing Organization Address City/[facility]/ZIP Co de Phone Number [facility] Department [place] [address] * CBC with auto differential (09/19/2023 10:00 AM CAFETERIA MONITOR) [facility] Signature WBC 7.9 3.8 - 9.9 K/cumm [facility] Comment:Testing performed by : [address] [address] Hgb 13.3 11.9 - 15.5 g/dL [facility] Comment:Testing performed by : [address] [address] Hct 41.0 35.6 - 45.5 % [facility] Comment:Testing performed by : [address] [address] Plt 236 150 - 400 K/cumm [facility] Comment:Testing performed by : [address] [address] MPV 9.8 9.1 - 12.3 fL [facility] RBC 4.61 3.90 - 5.20 M/cumm [facility] MCV 88.9 81.3 - 96.4 fL [facility] MCH 28.9 27.1 - 33.3 pg [facility] MCHC 32.4 32.3 - 35.7 g/dL [facility] RDW CV 13.1 11.1 - 14.9 % [facility] RDW SD 43.0 35.7 - 48.1 fL [facility] NRBC abs 0.00 0.00 - 0.01 K/cumm [facility] Blood 09/19/2023 10:0 0 AM CAFETERIA MONITOR 09/19/2023 10:00 AM CAFETERIA MONITOR Jose Chairez MD PhD LAB BLOOD ORDERABLES Final Result Performing Organization Address City/[facility]/ZIP Co de Phone Number [facility] Department [place] [address] * Lactate dehydrogenase (LD) (09/19/2023 10:00 AM CAFETERIA MONITOR) Lactate dehydrogenase (LDH) 203 100 - 250 Units/L [facility] Comment:Testing performed by : [facility], [address] [place] [address] Blood 09/19/2023 10:0 0 AM CAFETERIA MONITOR 09/19/2023 10:00 AM CAFETERIA MONITOR us Jose Chairez MD PhD LAB BLOOD ORDERABLES Final Result Performing Organization Address City/[facility]/ZIP Co de Phone Number [facility] [place] [address] * (ABNORMAL) TSH reflex to free T4 (09/19/2023 10:00 AM CAFETERIA MONITOR) TSH 0.08(L) 0.30 - 4.20 mcIUnit/mL [facility] Blood 09/19/2023 10:0 0 AM CAFETERIA MONITOR 09/19/2023 11:44 AM CAFETERIA MONITOR us Jose Chairez MD PhD LAB BLOOD ORDERABLES Final Result Performing Organization Address City/[facility] [place] [address] documented in this encounter Visit Diagnoses Diagnosis Malignant melanoma of unknown origin (HCC)- Primary documented in this encounter Orders Appointment Requests Count Last Ordered Date Fi rst Ordered Date ONCBCN CLINIC APPOINTMENT REQUEST 3 024 08/29/2023 ON[facility] LAB APPOINTMENT 2 10/24/202309/19 ON[facility]N RETURN CHEMO 1.5HRS 2 10/24/2023 0 09/19/2023 documented in this encounter Care Teams Glass Technician/Installer Relationship Specialty Start Date End Date Becky Conroy NP [address] [place] [address] PCP - General Nurse Practitioner 07/06/23 Jose Chairez MD PhD [address] [facility] [address] [place] [address] Medical Oncologist/Seat Cover Cutter Medical Oncology 08/14/23 Evelin Lofton MD [address] [place] [address] Referring Physician Cardiovascular Disease 08/14/23 documented as of this encounter
--- OUTSIDE RECORDS SUMMARY | 2024-09-17 04:23 | XMS_ITS | Encounter Summary ---
Author Organization [facility] Address [address] [place] [address] Phone Care Team Providers Care Weapons Mechanic Name Role Phone Becky Conroy NP Primary Care Provider [phone] Encounter Details Date Type Department Care Team (Late st Contact Info) Description 07/19/2023 Telephone [facility] Oncology [address] [place] [address] Milka Brantley RMA Social History Tobacco Use Types Packs/Day Years Used Date Smoking Tobacco: Never Assessed Comments Unknown Sex and Gender Information Value Date Recorded Sex Assigned at Not on file Legal Sex Female 1:54 AM CHALK CUTTER Gender Identity Not on file Sexual Orientation Not on file documented as of this encounter Miscellaneous Notes * Telephone Encounter - Milka Brantley RMA - 07/19/2023 1:12 PM CHALK CUTTER Ms. Baker called wanting to let Dr. Chairez know that she saw her system software programmer yesterday. She states that he checked everything and that it all looks good. K CUTTER documented in this encounter Plan of Treatment Not on file documented as of this encounter Visit Diagnoses Not on filedocumented in this encounter Care Teams Weapons Mechanic Relationship Specialty Start Date End Date Becky Conroy NP [address] [place] [address] PCP - General Nurse Practitioner 07/06/23 documented as of this encounter
--- OUTSIDE RECORDS SUMMARY | 2024-09-17 04:23 | XMS_ITS | Encounter Summary ---
Author Organization [facility] Address [address] [place] [address] Phone Care Team Providers Care Promotions Team Leader Name Role Phone Becky Conroy NP Primary Care Provider [phone] Encounter Details Date Type Department Care Team (Late st Contact Info) Description 08/09/2023 Telephone [facility] Oncology [address] [place] [address] Becca Maurice Social History Tobacco Use Types Packs/Day Years Used Date Smoking Tobacco: Never Smokeless Tobacco: Never Comments Unknown Sex and Gender Information Value Date Recorded Sex Assigned at Not on file Legal Sex Female 1:54 AM CEO Gender Identity Not on file Sexual Orientation Not on file documented as of this encounter Miscellaneous Notes * Telephone Encounter - Becca Maurice - 08/09/2023 4:01 PM CST Magui called and left message asking for neurosurgery phone number. Called her back gave her phonenumber. She asked if she could have alcohol. Let her know she could have one drink once a week. Magui stated her treatment yesterday went well. documented in this encounter Plan of Treatment Not on file documented as of this encounter Visit Diagnoses Not on filedocumented in this encounter Care Teams Promotions Team Leader Relationship Specialty Start Date End Date Becky Conroy NP [address] [place] [address] PCP - General Nurse Practitioner 07/06/23 documented as of this encounter
--- OUTSIDE RECORDS SUMMARY | 2024-09-17 04:23 | XMS_ITS | Encounter Summary ---
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) Procedures PET/CT FDG Skull to Thigh Landon Davis MD [address] [facility] [id number] [place] [address] Phone: tel: fax: [facility] [address] [place] [address] Referral ID Status Reason Start Date Expiration Date Visits Re quested Visits Authorized [id number] Closed 08/14/2023 09/12/2024 2 1 RY PLUG AND FEATHER DRILLER Reason for Visit * Reason Comments Consult * Consultation (Routine) - Closed Specialty Diagnoses / Procedures Referred By Contac t Referred To Contact Surgical Oncology Diagnoses Malignant melanoma of unknown origin (HCC) Jose Chairez MD PhD [address] [facility] [address] [place] [address] Phone: tel: fax: Landon Davis MD [address] [facility] [phone] [place] [address] Phone: tel: fax: Referral ID Status Reason Start Date Expiration Date V isits Requested Visits Authorized [id number] Closed Specialty Services Required 07/18/2023 08/16/2024 1 1 Encounter Details Date Type Department Care Team (Latest Contact Info) Description 08/14/2023 1:30 PM QUARRY PL[employer] FE[employer]ER DRILLER Office Visit [facility] Department of Hepatobiliary, Pancreatic, & Gastrointestinal Surgery [address] [facility] Advanced Medicine [address]th Floor, [place] [id number] Landon Davis MD [address] [facility] [id number] [place] [address] Malignant melanoma of unknown origin (HCC) (Primary Dx); 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) Social History Tobacco Use Types Packs/Day Years Used Date Smoking Tobacco: Former Cigarettes Smokeless Tobacco: Never Comments No Sex and Gender Information Value Date Recorded Sex Assigned at Not on file Legal Sex Female 1:54 AM QUARRY PL[employer] FE[employer] DRILLER Gender Identity Not on file Sexual Orientation Not on file documented as of this encounter Last Filed Vital Signs Vital Sign Reading Time Taken Comments Blood Pressure 157/93 08/14/2023 1:45 PM QUARRY PL[employer] FE[employer] DRILLER Pulse 66 08/14/2023 1:45 PM QUARRY PLUG [employer] FEATHER DRILLER Temperature - - Respiratory Rate - - Oxygen Saturation - - Inhaled Oxygen Concentration - - Weight 67.9 kg (149 lb 9.6 oz) 08/14/2023 1:45 P M QU[employer]Y [employer] FE[employer] DRILLER Height 157.5 cm (5' 2 ) 08/14/2023 1:45 PM QUARRY PLUG AND FEATHER DRILLER Body Mass Index 27.36 08/14/2023 1:45 PM QUARRY PLUG AND FEATHER DRILLER documented in this encounter Progress Notes * Landon Davis MD - 08/14/2023 1:30 PM CST Images from the original note were not included. Landon Davis M.D., F.A.C.S. Chief, Section of Surgical Oncology [employer] Distinguished chief mechanical officer [facility] The Alireza SantamariaJeannette [facility] [employer] - voice - fax USPS Mailing Address: Overnight Mailing Address: [address] [place] [address] [address] [facility], [address] [place], [place] [address] [place], [place] [address] MELANOMA NEW VISIT EVALUATION DATE OF VISIT: 08/14/23 REASON FOR VISIT: Newly diagnosed melanoma of unknown primary metastatic to the left axilla. Consult requested by Dr. Jose Chairez, M*. HISTORY OF PRESENT ILLNESS: Ms. Baker is a 78 y.o. female who noted a new mass in the left axilla when shaving in June 2023. A biopsy was performed and noted melanoma, BRAF wild-type. Not history of prior skin lesions or primary melanoma. Ms. Baker then was seen by my colleague in Medical Oncology, Dr. Jose Chairez. Further staging workup showed no metastatic disease. 1.2 cm mildly hypermetaboic right lung nodule not felt to represent metastatic melanoma. No intracranial metastases. Clinical stage at presentation is stage IIIB/C (TxN2b) Ms. Baker initiated pembrolizumab immunotherapy on 08/08/2023 and has undergone 1 cycle. Her next dose is scheduled for 08/29/2023. We are planning her treatment following the SWOG 1801 study withre-staging and plans for surgery. I have reviewed the clinical history and medical records from Ms. Baker???s referring physicians. She does not note any other symptoms related to this melanoma. No other reported skin or soft tissue abnormalities, including enlarged lymph nodes or other hyperpigmented lesions. Ms. Baker denies weight loss, change in appetite, changes in bowel/bladder habits, or pain anywhere. Ms. Baker???s estimated ECOG status is 0-1. Of note, she does have coronary artery disease and had a heart attack in 2002. This was managed with a stent placement. She is under the care of Dr. Maci Lofton in Cardiology and is maintained on Plavix. Ms. Baker underwent a PET/CT scan and brain MRI on 07/31/2023, both of which I have personally reviewed, demonstrating a 5.5 cm left axillary mass with smaller surrounding adenopathy consistent with her stage III melanoma. No other sites of disease and no intracranial disease. Indeterminate lungnodule, as noted above. The implications of these imaging findings and significance for Ms. Baker's diagnosis include further treatment and follow-up recommendations and were discussed with . Olivia. Ms. Baker underwent recent blood work, which I have personally reviewed. This includes: CBC: Lab Results Component Value Date WBC 8.3 08/08/2023 HGB 13.8 08/08/2023 HCT 41.4 08/08/2023 MCV 87.7 08/08/2023 LABPLAT 298 08/08/2023 BMP: Lab Results Component Value Date GLUCOSE 106 08/08/2023 CALCIUM 10.4 (H) 08/08/2023 SODIUM 143 08/08/2023 POTASSIUM 3.3 08/08/2023 CO2 29 08/08/2023 CHLORIDE 106 08/08/2023 BUNSER 18 08/08/2023 CREATININE 0.65 08/08/2023 LFTs: Lab Results Component Value Date ALT 25 08/08/2023 AST 27 08/08/2023 ALKPHOS 56 08/08/2023 BILITOT 0.5 08/08/2023 Albumin Lab Results Component Value Date ALBUMIN 4.6 08/08/2023 LDH: Lab Results Component Value Date LDH 235 08/08/2023 The implications of these lab results and significance for Ms. Baker's diagnosis include furthertreatment and follow-up recommendations and were discussed with Jeannette Olivia. PAST MEDICAL HISTORY: Past Medical History: Diagnosis Date Melanoma (HCC) Old myocardial infarction Past myocardial infarction - (Added by TW Conv) Personal history of other diseases of the circulatory system History of hypertension - (Added by TW Conv) PAST SURGICAL HISTORY Past Surgical History: Procedure Laterality Date NM SLING OPERATION STRESS INCONTINENCE Vaginal Sling Operation For Stress Incontinence - 07/21/2008 (Added by TW Conv) NM TOTAL ABDOMINAL HYSTERECT W/WO RMVL TUBE OVARY Hysterectomy - (Added by TW Conv) ALLERGIES: Patient has no known allergies. MEDICATIONS: Current Outpatient Medications: biotin 2,500 mcg capsule, Take 2 tablets by mouth daily, Disp: , Rfl: ergocalciferol, vitamin D2, 10 mcg (400 unit) tablet, Take 1 tablet by mouth daily, Disp: , Rfl: clopidogreL (PLAVIX) 75 mg [...] total) by mouth daily, Disp: , Rfl: SOCIAL HISTORY: Smoking History: reports that she has quit smoking. Her smoking use included cigarettes. She has never used smokeless tobacco. Alcohol History: No alcohol history on file. Drug use: has no history on file for drug use. Sun exposure: Moderate lifetime exposure. Ethnicity/background: White/. [place] [address]. 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 No limitations on activity. She is ableto ambulate without difficulty and can walk up 1-2 flights of stairs before becoming short of breath. The patient is accompanied today by her daughter. FAMILY HISTORY: family history is not on file.. Of note, there is no family history of skin cancer,including melanoma. REVIEW OF SYSTEMS: The review of systems is as reported in the history of present illness and as recorded on the patient information worksheet. All other systems are as follows: General: No fevers, no chills. HEENT: No visual symptoms, no dysphagia, no masses. Respiratory: No cough, no SOB, no dyspnea. CV: No chest pain, no palpitations. GI: No difficulty or pain with bowel movements, no GI bleeding. : No difficulty or pain with urination. Skin: No other skin lesions or masses. Musculoskeletal: No joint or muscle pain, normal range of motion. Neurological: No numbness or weakness. Psychiatric: No changes in mood or affect, no change in mentation. PHYSICAL EXAMINATION: VITAL SIGNS: Weight - 67.9 kg (149 lb 9.6 oz) pounds, Blood pressure - 157/93, Heart rate - 66 bpm,Temperature - ??F. GENERAL: Alert and oriented x 3 in no apparent distress. SKIN: A focused skin examination was performed with the following significant findings: No concerning pigmented skin lesions noted. LYMPH NODES: No cervical, supraclavicular, right axillary, inguinal, or popliteal lymphadenopathy. In the left axilla, large mobile palpable lymph node. REVIEW OF LABORATORY AND RADIOGRAPHIC STUDIES: See HPI ASSESSMENT: 78 y.o. female with melanoma of unknown primary presenting with left axillary adenopathy who was undergoing immunotherapy, having just received the 1st of 3 planned cycles. We have discussed her case extensively, and I agree with plans for restaging after the 3rd cycle and considerationof surgery consisting of a left axillary lymph node dissection. I would like her to undergo cardiology clearance in the meantime and would plan to hold her plavix around the time of surgery. PLAN: We discussed my recommended treatment consisting of left lymph node dissection, including therisks, benefits, and alternatives to surgical treatment. Specifically, we discussed the risk of wound-related complications (infection, seroma, and chronic, non-healing wounds), possible nerve damageand numbness of surrounding skin, and the risk of lymphedema after lymph node dissection/removal. Itold the patient this can sometimes be debilitating and incurable. We discussed the management of these complications, consisting of treatment with antibiotics, needle-drainage of fluid collections, and/or possible opening of an infected wound with resultant closure via secondary intention (packing, Wound Vac, etc.). We also discussed risks related to anesthesia. We discussed the expected post-operative course and the follow-up involved. I mitchel several pictures and provided Ms. Baker with literature and several websites to obtain more information (ACS, NCI, ASCO). After our discussion, thepatient decided to proceed with surgery. Informed consent was obtained in clinic today. We will proceed with left lymph node dissection. We will arrange for the necessary pre-operative testing, including cardiology clearance and a re-staging PET/CT scan in late August. I answered all of Ms. Baker's questions to her satisfaction. My total encounter time on 08/14/23 was 61 minutes which was spent in the activities documented in the note. This includes time spent prior to the visit and after the visit in direct care of the patient. This time does not include time spent in any separately reportable services. Landon Davis M.D., F.A.C.S. Chief, Section of Surgical Oncology Professor of Surgical Oncology Co-Leader, Melanoma & Cutaneous Oncology Program CC: Patient Care Team: Becky Conroy NP as PCP - General (Nurse Practitioner) Jose Chairez MD PhD as Medical Oncologist/Program Paraprofessional (Medical Oncology) Evelin Lofton MD as Referring Physician (Cardiovascular Disease) Cupola Liner Helper completed by [employer]. Cupola Liner Helper variances may occur. RY PLUG AND FEATHER DRILLER documented in this encounter Plan of Treatment Not on file documented as of this encounter Results * PET/CT FDG Skull to Thigh (10/04/2023 1:52 PM QUARRY PLUG AND FEATHER DRILLER) Anatomical Region Laterality Modality N/A Positron Emissio n Tomography (PET) 10/04/2023 3:33 PM QUARRY PLUG AND FEATHER DRILLER Impressions 10/04/2023 4:02 PM QUARRY PLUG AND FEATHER DRILLER 1. Favorable treatment response evidenced by marked [...] Gil MD, Ph.D Narrative 10/04/2023 4:02 PM QUARRY PLUG AND FEATHER DRILLER EXAMINATION: TUMOR FDG-PET/CT IMAGING DATE OF STUDY: [...] obtained. ??The study was interpreted on the [employer] workstation. The mean liver SUV (reported for bottle house quality control technician purposes) is 2.7. ?? The total scanned [...] obtained. The study was interpreted on the [employer] workstation. The mean liver SUV (reported for bottle house quality control technician purposes) is 2.7. 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 meloxicam (MOBIC) 7.5 mg tablet Take 1 tablet (7.5 mg total) by mouth as needed for pain ergocalciferol, vitamin D2, 10 mcg (400 unit) tabletIndications :Prevention of Vitamin D Deficiency Take 1 tablet by mouth every morning 10/09/2009 biotin 2,500 mcg capsule Take 2 tablets by mouth daily 12/24/2014 09/13/2023 added in this encounter Orders Outpatient Referral Count Last Ordered Date Fir st Ordered Date AMB REFERRAL TO SURGICAL ONCOLOGY 1 023 documented in this encounter Care Teams Measuring Machine Tender Relationship Specialty Start Date End Date Becky Conroy NP [address] [place] [address] PCP - General Nurse Practitioner 07/06/23 Jose Chairez MD PhD [address] [facility] [address] [place], [place] [id number] Medical Oncologist/Program Paraprofessional Medical Oncology 08/14/23 Evelin Lofton MD [address] [place] [address] Referring Physician Cardiovascular Disease 08/14/23 documented as of this encounter"
--- OUTSIDE RECORDS SUMMARY | 2024-09-17 04:23 | XMS_ITS | Encounter Summary ---
Author Organization [facility] Healthcare Address [address] [place] [address] Care Team Providers Care Manager Culinary Name Role Phone Becky Conroy NP Primary Care Provider [phone] Jose Chairez MD PhD Unavailable [phone] Evelin Lofton MD Unavailable [phone] Reason for Visit * Auth/Cert (Routine) Specialty Diagnoses / Procedures Referred By Korey harkins Referred To Contact Diagnoses Metastatic melanoma (HCC) Metastatic melanoma (HCC) [C43.9] Procedures VT BX/EXC LYMPH NODE OPEN DEEP AXILLARY NODE LEFT AXILLARY LYMPH NODE DISSECTION Referral ID Status Reason Start Date Expiration Date Visits Re quested Visits Authorized [id number] 1 1 Encounter Details Date Type Department Care Team (Latest Contact Info) Description 10/11/2023 6:11 AM DRILL PRESS OPERATOR HELPER - 10/12/2023 12:10 PM DRILL PRESS OPERATOR HELPER Hospital Encounter [facility] [address] [place] [address] Landon Wright MD [address] [phone] [place] [address] Metastatic melanoma (HCC); Malignant melanoma of unknown origin (HCC) Discharge [...] on file Legal Sex Female 1:54 AM DRILL PRESS OPERATOR HELPER Gender Identity Not on file Sexual Orientation Not on file documented as of this encounter Last Filed Vital Signs Vital Sign Reading Time Taken Comments Blood Pressure 122/51 10/12/2023 8:30 AM DRILL PRESS OPERATOR HELPER Pulse 61 10/12/2023 8:30 AM DRILL PRESS OPERATOR HELPER Temperature 36.4 ??C (97.5 ??F) 10/12/2023 8:30 AM CS T Respiratory Rate 16 10/12/2023 8:30 AM DRILL PRESS OPERATOR HELPER Oxygen Saturation 94% 10/12/2023 8:30 AM DRILL PRESS OPERATOR HELPER Inhaled Oxygen Concentration - - Weight 65.9 kg (145 lb 4.8 oz) 10/12/2023 4:15 A M DRILL PRESS OPERATOR HELPER Height 157.5 cm (5' 2 ) 09/13/2023 9:35 AM DRILL PRESS OPERATOR HELPER Body Mass Index 26.58 09/13/2023 9:35 AM DRILL PRESS OPERATOR HELPER documented in this encounter Discharge Summaries * Arabella Altamirano NP - 10/12/2023 6:29 AM CST Inpatient Discharge Summary BRIEF OVERVIEW Admitting Provider: Landon Wright MD Discharge Provider: Landon Wright MD Primary Care Physician at Discharge: Becky Conroy NP [phone] Admission Date: 10/11/2023 Discharge Date: 10/12/23 0 [...] you on MondayOctober 30 at 2:[address] [facility] ([facility]), [address] [place] [address]. Please call for questions or concerns. For after hours, weekends or holidays please contact theExchange at [phone]. * With your PRIMARY CARE DOCTOR (PCP) [...] Provider Department Center 10/24/2023 8:30 AM LAB, [facility] ON[facility] ONC LAB [facility] ONC LAB 10/24/2023 9:00 AM Jose Chairez MD PhD ONC [facility] Oncology 10/24/2023 10:00 AM POD 5 SC ONC INF [facility] ONC INF 10/30/2023 2:30 PM Armando Akhtar NP ONC CAM 5F PICHARDO Cosigned by Landon Wright MD at 10/12/2023 11:29 AM DRILL PRESS OPERATOR HELPER L PRESS OPERATOR HELPER L PRESS OPERATOR HELPER documented in this encounter Discharge Instructions * Discharge Instructions* Arabella Altamirano NP - 10/12/2023 10:44 AM DRILL PRESS OPERATOR HELPER ! Call Your Doctor If Call if [...] you on MondayOctober 30 at 2:[address] [facility] ([facility]), [address] [place] [address]. Please call for questions or concerns. For after hours, weekends or holidays please contact the[place] at [phone]. * With your PRIMARY CARE DOCTOR (PCP) [...] sent to your doctor???s office. Additional Information L PRESS OPERATOR HELPER documented in this encounter Medications at Time [...] discharge needs arise, please contact the covering cyanide case hardener. L PRESS OPERATOR HELPER * Beatrice Rehman RN - 10/12/2023 11:42 AM CST 10/12/23 1100 Communications Important Message from Medicare notice given to patient? Yes L PRESS OPERATOR HELPER * Asya Burgess PT - 10/12/2023 9:15 AM CST Lymphedema [...] of hypertension - (Added by TW Conv) Objective: 10/12/23 0915 General Session Type [...] Please call Rehabilitation department with questions at [phone]. Refer to Vital signs flowsheet, Care plan activity and Education activity for additional documentation. If this is the last therapy visit, this serves as the discharge summary. MARCO BrizuelaT, CLT 10/12/23 L PRESS OPERATOR HELPER * Rox Mcnulty MD - 10/12/2023 9:12 [...] % Max: 100 % Most Recent: Vitals: 10/12/23 0830 BP: 122/51 Pulse: 61 Resp: 16 Temp: [...] Landon Wright MD at 10/12/2023 9:30 AM DRILL PRESS OPERATOR HELPER L PRESS OPERATOR HELPER L PRESS OPERATOR HELPER * Raegan Daniel PA - 10/11/2023 11:12 [...] patient. NAVIN Lopes [facility]at[facility] Surgery Service phone: [phone] L PRESS OPERATOR HELPER documented in this encounter H&P Notes * Landon Wright MD - 10/11/2023 6:34 AM CST I have reviewed the H&P, examined the patient, and endorse the findings as written. Plan of Care : Based on the above findings, I consider Guevara Baker to be an acceptable riskfor : Procedure(s): LEFT AXILLARY LYMPH NODE DISSECTION L PRESS OPERATOR HELPER Source Note - Marizol Blancas NP - 10/04/2023 9:42 AM DRILL PRESS OPERATOR HELPER Images from the original note were not included. Center for Preoperative Assessment and Planning Preoperative Evaluation Record Evaluation type/location: TPAP from [facility] Planned procedure site: [facility] (Pods 2/3/5/[facility]) Date: 10/04/23 NOTE: This note represents a [...] + Hyperlipidemia (on statin) + CAD + MO Number of MO's: 1. Date of last MO: 2002. 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 Patient verbalized understanding of instructions. Blood bank [...] therapy when feasible in the postoperative period. RealMatch staff message sent to surgeon's office. Please call the CPAP clinic ([phone]) withany questions. Preoperative evaluation performed by Marizol Blancas NP on 10/04/23 at 9:51 AM TPAP assessment complete . 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 Report phoned to Elly [place] [phone] L PRESS OPERATOR HELPER documented in this encounter Miscellaneous Notes * [...] Goal: Pain level will decrease Outcome: Progressing L PRESS OPERATOR HELPER * Initial Assessments - Beatrice Rehman RN - 10/12/2023 9:52 AM DRILL PRESS OPERATOR HELPER CM Initial Assessment Interview Note Information Obtained [...] No (10/12/23799) Health Insurance Coverage: Medicare A/B, [place] Prescription Coverage: yes Pharmacy: [id number] - [place], [place] - [address] [address] Primary Care Provider: Becky Conroy NP Prior [...] Collaboration with patient, MD, direct care nurse, Ortho Tech, and other members of the health care team to assure needed interventions completed. 2. Return patient to optimal level of self-care post discharge. 3. Lye Machine Operator will follow for Discharge Planning - interventions [...] with the aftercare plan. Beatrice Rehman RN L PRESS OPERATOR HELPER * Plan of Care - Magalis Lima RN - 10/11/2023 9:30 PM DRILL PRESS OPERATOR HELPER Goals: Clinical Goals for the Shift: monitor [...] Goal: Pain level will decrease Outcome: Progressing L PRESS OPERATOR HELPER * Plan of Lexa - Elly Infante RN - 10/11/2023 11:09 AM CST Goals: [place] to unit, pain management, monitor post op [...] Goal: Pain level will decrease Outcome: Progressing L PRESS OPERATOR HELPER * Op Note - Landon Wright MD - 10/11/2023 8:52 AM CST Images from the original note were not included. 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 SURGEON: Landon Wright M.D. FIRST SKIMMER REVERBERATORY: Raegan Daniel PA-C ANESTHESIA: General endotracheal. NAME [...] nerve and thoracodorsal nerve hadexcellent function. A 19-Spanish SHEILA drain was placed through a separate [...] available to assist with this case. An assistant surveyor was medically necessary to perform the operation in a safe and effective fashion. Landon Wright M.D., F.A.C.S. Chief, Section of Surgical Oncology [facility] - voice - fax USPS Mailing Address: Overnight Mailing Address: [address] [place] [address] [place] [address], [address] [place], [place] [address] [place], [place] [address] L PRESS OPERATOR HELPER * Pre-Procedure Instructions - Marizol Blancas NP - 10/04/2023 9:05 AM CST Center for Preoperative Assessment and Planning CPAP Clinic Location: [facility] The night before your surgery: * Do [...] going to be admitted after surgery at [facility], COVID testing may be performed on the day of surgery, even if you are up to date on your COVID-19 vaccine. * If having surgery at [facility], you may want to bring a credit card if you want to use our Mobile Pharmacy for your discharge medications. Mobile pharmacy is not available at [facility], the Orthopedic Center, or the [place] for [facility]. Outpatient Surgery: * You must have a [...] with COVID-19. You test positive for COVID-19. L PRESS OPERATOR HELPER * Perioperative Nursing Note - Rosy Curry RN - 09/13/2023 9:48 AM CST Center for Preoperative Assessment and Planning Perioperative Nursing Note Telephone Preoperative Evaluation ([facility]) - TELEPHONE ONLY, NO PHYSICAL EXAM Date: [...] information Information Provided on Healthcare Directives: No Communication/Auto Porter Needs Communication Barriers: Visual Communication Needs: Glasses Assistive Devices/DME: Dentures partial, Eyeglasses Hearing - Right Ear: Functional Hearing - Left Ear: Functional Discharge Planning Type of Residence: Private residence Living Arrangements: Children Support Systems: Children Patient expects to be discharged to:: Private residence (Daughter, Hallie will be driver courier after surgery.) RECONCILIATION ACCOUNTANT NO ADDITIONAL COMMENTS/ FOLLOW UP L PRESS OPERATOR HELPER L PRESS OPERATOR HELPER * Pre-Procedure Instructions - Rosy Curry RN [...] remove nail coverings, artificial nails and nail slovak prior to the day of surgery. You should leave your valuables and any jewelry at home. No metal or piercings are allowed in the operating room. You should bring your insurance card, a photo ID (example: Parole Director's License) and a method of payment for [...] Chart. If you are having surgery at [facility] [place] [facility], please arrive on the day of surgery [...] Pathway to Excellent Care by the followinglink: [email or web address] How To Prepare Your Skin For Surgery [...] Remove nail coverings, artificial nails and nail slovak. The Morning of Surgery: Take a shower [...] questions, please call the CPAP Staff at [phone], Monday-Monday 8am-4:30pm. All patients should read the below section: COVID 19 Updates & Visitor Policy: Please access [email or web address] for the most updated information. Information on [facility] & the Orthopedic Center: Please view [email or web address] (Patient & Visitor Information) for additional details regarding Advanced Directive forms, AWARE, directions, parking information, lodging, Internet access, dining and more. Information on [facility] or [facility] ([facility]): Please view [email or web address] (Patient and Visitor Information) for parking/directions and more. For MyChart information, to activate account or password recovery, please go to [email or web address] or call [phone] (toll-free: [phone]), Mon- Monday 8am-5pm. Information for Suicide Prevention: National Suicide Prevention Lifeline (4-487- 717-AUJH (3987)) or call or text 791. Chat resources: My Single [email or web address].org. Surgery Times: For patients having surgery @ [facility] Medicine or [facility] ([facility]), if your surgeon's office has not notified you of your surgery time by NOON THE BUSINESS DAY BEFORE your surgery, please call [phone] and ask for your surgeon's office Dr. Wright. The Center for Preoperative Assessment & Planning (CPAP) does not provide arrival times for the day of surgery or provide the duration of surgery. This information is provided by your surgeon'soffice or by the center where you are having surgery. We appreciate your understanding. L PRESS OPERATOR HELPER documented in this encounter Plan of Treatment Not on file documented as of this encounter Procedures Procedure Name Priority Date/Time Associated Diagnosis Comments SURGICAL PATHOLOGY Routine 10/11/2023 9: 07 AM DRILL PRESS OPERATOR HELPER Metastatic melanoma (HCC) DISSECTION AXILLARY LYMPH NODE 10/11/2023 8:27 AM DRILL PRESS OPERATOR HELPER Metastatic melanoma (HCC) documented in this encounter Results * Surgical pathology (10/11/2023 9:07 AM DRILL PRESS OPERATOR HELPER) Tissue (Lymph Node, Single excision) 10/11/2023 9:07 AM DRILL PRESS OPERATOR HELPER Narrative PATHOLOGY [facility] - 10/17/2023 8:42 AM DRILL PRESS OPERATOR HELPER EPIC results best viewed via link to PDF [facility] Suzan Verma [facility] [place] [address] Note to Patients: This report may contain [...] Gender: ??F : ??1945 (Age: 78) Address: ??[address] [place] [address] Hospital #: ??[id number] Taken:10/11/2023 Received:10/11/2023 Reported: 10/17/2023 Patient Type: [facility] OP In Bed ?? Service: Surgery Location: [place] [address] Physician(s): ??Miriam Wilson F.N.P. Diagnosis: Lymph node, [...] Dermatopathology Center, ??Department of Pathology ??and Immunology, [facility], [address], [address], [place], [place] ??[address] ?? CLIA # [id number] History: The patient is an 78-year-old woman [...] lymph node has scattered hemorrhage and necrosis. ??Acquisitions Editor sections are submitted as follows: A1-A2 Largest lymph node, sales and merchandising representative A3 One lymph node, bisected A4 [...] Surgical Pathology and Flow Cytometry Departments at [facility] as part of an ongoing air quality manager program and in compliance with federally mandated [...] Surgical Pathology and Flow Cytometry Departments of [facility]. ??It has not been cleared or approved by the U. S. Food and Drug Administration. IMAGES AND SCANNED DOCUMENTS, IF INCLUDED, ONLY VIEWABLE IN PDF VERSION OF REPORT us Landon Wright MD LAB PATHOLOGY ORDERABLES Final Result PATHOLOGY [facility] [address] Floor [place], [place] [phone] documented in this encounter Visit Diagnoses Diagnosis Metastatic melanoma (HCC)- Primary Melanoma of skin, site unspecified Metastatic melanoma (HCC) Melanoma of skin, site unspecified Malignant melanoma of unknown origin (HCC) Metastatic malignant melanoma (HCC) documented in this encounter Admitting Diagnoses Diagnosis [...] 1200, Indications: PainIndications:Pain Given 10/12/2023 5:53 AM DRILL PRESS OPERATOR HELPER 1,000 mg Given 10/11/2023 11:40 PM DRILL PRESS OPERATOR HELPER 1,000 mg Given 10/11/2023 5:06 PM DRILL PRESS OPERATOR HELPER 1,000 mg enoxaparin (LOVENOX) syringe 40 mg 40 mg, subcutaneous, Daily (for enoxaparin), First dose on Mon10/11/23 at 2100, Indications: Deep Vein Thrombosis PreventionIndications:Deep Vein Thrombosis Prevention Given 10/11/2023 8:58 PM DRILL PRESS OPERATOR HELPER 40 mg Left Lower Abdomen gabapentin (NEURONTIN) capsule 200 mg 200 mg, oral, 3 times daily, First dose on Mon10/11/23 at 1600 Given 10/12/2023 8:36 AM DRILL PRESS OPERATOR HELPER 200 mg Given 10/11/2023 8:58 PM DRILL PRESS OPERATOR HELPER 200 mg Given 10/11/2023 4:13 PM DRILL PRESS OPERATOR HELPER 200 mg heparin 5,000 unit/mL injection 5,000 Units 5,000 Units, subcutaneous, Once, On Mon10/11/23 at 0700, For 1 dose, Pre-Op, Indications: Deep Vein Thrombosis PreventionIndication s:Deep Vein Thrombosis Prevention Given 10/11/2023 8:05 AM DRILL PRESS OPERATOR HELPER 5,000 Units Left Lower Abdomen Lactated Ringer's (LR) infusion 30 mL/hr, intravenous, Continuous, Starting on Mon10/11/23 at 0700, Pre-Op Rate/Dose Verify 10/11/2023 8:23 AM DRILL PRESS OPERATOR HELPER 30 mL/hr New Bag 10/11/2023 6:42 AM DRILL PRESS OPERATOR HELPER 30 mL/hr 30 mL/hr lidocaine (ASPERCREME) 4 % patch 1 patch 1 patch, transdermal, Administer over 12 Hours, Every 24 hours, First dose on Mon10/11/23 at 1200, Apply to affected area: arm, Laterality: Left Medication Applied 10/11/2023 11:39 AM DRILL PRESS OPERATOR HELPER 1 patch Chest metoprolol XL (TOPROL-XL) extended release tablet 50 mg 50 mg, oral, Daily, First dose on Mon10/11/23 at 1230, Tablets that are scored may be split, but do not crush, chew, dissolve, open or otherwise manipulate tablet/capsule. Given 10/12/2023 8:36 AM DRILL PRESS OPERATOR HELPER 50 mg ondansetron ODT (ZOFRAN-ODT) disintegrating tablet [...] Mon10/11/23 at 1230 Given 10/12/2023 8:36 AM DRILL PRESS OPERATOR HELPER 5 mg Given 10/11/2023 4:13 PM DRILL PRESS OPERATOR HELPER 5 mg senna-docusate (PERICOLACE) 8.6-50 mg per tablet 1 tablet 1 tablet, oral, 2 times daily, First dose on Mon10/11/23 at 1200 Given 10/12/2023 8:36 AM DRILL PRESS OPERATOR HELPER 1 tablet Given 10/11/2023 8:58 PM DRILL PRESS OPERATOR HELPER 1 tablet Given 10/11/2023 11:38 AM DRILL PRESS OPERATOR HELPER 1 tablet documented in this encounter Discontinued Medications Medication [...] Recently Administered Medications Times are shown in DRILL PRESS OPERATOR HELPER. Scheduled Medication Order 10/10/2023 10/11/2023 10/12/2023 acetaminophen (TYLENOL) tablet 1,000 mg 1,000 mg, oral, Every 6 hours scheduled, First dose on Mon10/11/23 at 1200, Indications: Pain 1138 (Given - Provider: Elly Infante RN)1706 (Given - Provider: Elly Infante RN)2340 (Given - Provider: Magalis Lima RN) 0553 [...] 1600 1613 (Given - Provider: Elly Infante RN)205 (Given - Provider: Magalis Lima RN) 0836 [...] at 1200 1138 (Given - Provider: Elly Infante RN)2058 (Given [...] Count Last Ordered Date First Ordered Date BUPivacaine (MARCAINE) 0.5 % (5 mg/mL) preservative free injection 1 10/11/2023 Carrier Fluids for Secondary Infusion - 0.9% Sodium Chloride 1 10/11/2023 ceFAZolin (ANCEF) 2,000 mg/2 0 mL in sterile water (premix) 2,000 mg 1 10/11/2023 cyclobenzaprine (FLEXERIL) tablet 5 mg 1 diphenhydrAMINE (BENADRYL) 5 0 mg/mL injection 12.5 mg 1 10/11/2023 haloperidol (HALDOL) injection 0.5 mg 1 HYDROmorphone (DILAUDID) injection 0.2 mg 10/11/2023 Lactated Ringer's (LR) infusion naloxone (NARCAN) 0.4 mg/mL injection 0.04-0.4 mg 1 10/11/2023 ondansetron ODT (ZOFRAN-ODT) disintegrating tablet 4 mg 10/11/2023 oxyCODONE (ROXICODONE) tablet 2.5 mg 09/13 oxyCODONE (ROXICODONE) tablet 5 mg 1 2023 polyethylene glycol (MIRALAX) packet 17 g 1 10/11/2023 prochlorperazine (COMPAZINE) injection 2.5 mg 1 10/11/2023 sodium chloride 0.9% flush 0.5-20 mL 1 09/13 sodium chloride 0.9% irrigation 1 Admission Count Last Ordered Date First Orde [...] 10/11/2023 documented in this encounter Care Teams Manager Culinary Relationship Specialty Start Date End Date Becky Conroy NP [address] [place] [address] PCP - General Nurse Practitioner 07/06/23 Jose Chairez MD PhD [address] [facility] [address] [place] [address] Medical Oncologist/Nut Roaster Helper Medical Oncology 08/14/23 Evelin Lofton MD [address] [place] [address] Referring Physician Cardiovascular Disease 08/14/23 documented as of this encounter
--- OUTSIDE RECORDS SUMMARY | 2024-09-17 04:23 | XMS_ITS | Encounter Summary ---
Author Organization [facility] Address [address] [place] [address] Phone Care Team Providers Care Market Development Specialist Name Role Phone Becky Conroy NP Primary Care Provider [phone] Jose Chairez MD PhD Unavailable [phone] Evelin Lofton MD Unavailable [phone] Reason for Visit * Episode Based Medications (Routine) - Closed Specialty Diagnoses / Procedures Referred By Contac t Referred To Contact Oncology Diagnoses Malignant melanoma of unknown origin (HCC) Jose Chairez MD PhD [address] [facility] [address] [place] [address] Phone: tel: fax: [facility] [address] [place] [address] Phone: tel: fax: Referral ID Status Reason Start Date Expiration Date Visits Re quested Visits Authorized [id number] Closed 05/27/2024 09/04/2024 1 30 Encounter Details Date Type Department Care Team (Late st Contact Info) Description 09/19/2023 10:45 AM ACCOUNTANT CERTIFIED PUBLIC Lab [facility] Oncology [address] [place] [phone] Malignant melanoma of unknown origin (HCC) Social [...] on file Legal Sex Female 1:54 AM ACCOUNTANT CERTIFIED PUBLIC Gender Identity Not on file Sexual Orientation Not on file documented as of this encounter Plan of Treatment Not on file documented as of this encounter Visit Diagnoses Diagnosis Malignant melanoma of unknown origin (HCC) documented in this encounter Orders Appointment Requests Count Last Ordered Date Fi rst Ordered Date ONCBCN LAB APPOINTMENT 1 09/19/2023 documented in this encounter Care Teams Market Development Specialist Relationship Specialty Start Date End Date Becky Conroy NP [address] [place] [address] PCP - General Nurse Practitioner 07/06/23 Jose Chairez MD PhD [address] [facility] [address] [place], [place] [id number] Medical Oncologist/Scooter Mechanic Medical Oncology 08/14/23 Evelin Lofton MD [address] [place] [address] Referring Physician Cardiovascular Disease 08/14/23 documented as of this encounter
--- OUTSIDE RECORDS SUMMARY | 2024-09-17 04:24 | XMS_ITS | Encounter Summary ---
Author Organization [facility] Address [address] [place] [address] Phone Care Team Providers Care Hot Car Operator Name Role Phone Becky Conroy NP Primary Care Provider [phone] Reason for Referral * MRI/CAT/PET Scan (Routine) - Closed Specialty Diagnoses / Procedures Referred By Contac t Referred To Contact Radiology Diagnoses Malignant melanoma of unknown origin (HCC) Procedures MRI Brain W WO Contrast Jose Chairez MD PhD [address] [address] Phone: tel: fax: [facility] Referral ID Status Reason Start Date Expiration Date Visits Re quested Visits Authorized [id number] Closed 07/18/2023 08/16/2024 1 1 PAPER CARRIER * MRI/CAT/PET Scan (Routine) - Closed Specialty Diagnoses / Procedures Referred By Contac t Referred To Contact Radiology Diagnoses Malignant melanoma of unknown origin (HCC) Procedures PET/CT FDG Whole Body Jose Chairez MD PhD [address] [facility] [address] [place] [address] Phone: tel: fax: [address] [address] Referral ID Status Reason Start Date Expiration Date Visits Re quested Visits Authorized [id number] Closed 07/18/2023 08/16/2024 1 1 PAPER CARRIER Reason for Visit * Consultation (Routine) - Closed Specialty Diagnoses / Procedures Referred By Korey t Referred To Contact Oncology Diagnoses Malignant melanoma of unknown origin (HCC) Becky Conroy, ELECTRONIC CONTROLS REPAIRER SUPERVISOR [address] [place] [address] Phone: tel: fax: [facility] [address] [facility] 7th [place] [address] [place] [address] Phone: tel: fax: Referral ID Status Reason Start Date Expiration Date V isits Requested Visits Authorized [id number] Closed Specialty Services Required 07/06/2023 08/04/2024 12 12 Encounter Details Date Type Department Care Team (Late st Contact Info) Description 07/18/2023 10:00 AM NEWSPAPER CARRIER Office Visit [facility] [address] [place] [address] Jose Chairez MD PhD [address] [facility] [address] [place], [place] [id number] Melanoma of axilla (HCC) (Primary Dx); Malignant melanoma of unknown origin (HCC) Social History Tobacco Use Types Packs/Day Years Used Date Smoking Tobacco: Never Assessed Comments Unknown Sex and Gender Information Value Date Recorded Sex Assigned at Not on file Legal Sex Female 1:54 AM NEWSPAPER CARRIER Gender Identity Not on file Sexual Orientation Not on file documented as of this encounter Last Filed Vital Signs Vital Sign Reading Time Taken Comments Blood Pressure 136/76 07/18/2023 9:47 AM NEWSPAPER CARRIER Pulse 83 07/18/2023 9:47 AM NEWSPAPER CARRIER Temperature 36.4 ??C (97.6 ??F) 07/18/2023 9:47 AM CS T Respiratory Rate 17 07/18/2023 9:47 AM NEWSPAPER CARRIER Oxygen Saturation 96% 07/18/2023 9:47 AM NEWSPAPER CARRIER Inhaled Oxygen Concentration - - Weight 68.4 kg (150 lb 14.4 oz) 07/18/2023 9:47 AM NEWSPAPER CARRIER Height - - Body Mass Index - - documented in this encounter Progress Notes * Gabe Pino MD - 07/18/2023 10:00 AM CST [facility] Initial Consult Note PATIENT NAME: Magui Baker : 1945 DATE OF VISIT: 07/18/2023 DIAGNOSIS: Metastatic 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 Baker is a 78-year-old female with a past medical history of CAD, GERD, hyperlipidemia, hypertension, and T2DM presenting for an initial consultation for newly diagnosed metastatic malignant melanoma of unknown primary. At the beginning of June,, she noticed a lump in the left axilla when she was shaving. She has otherwise been in her normal state of health, specifically denies fevers, chills, weight loss, night sweats, decreased appetite or fatigue. On 06/21/2023, she presentedto her PCP, TATA Conroy, in [place], [place] and underwent subsequent ultrasound of the left axilla, performed 06/30/2023 showing a complex, irregular shaped hypoechoic left axillary mass measuring up to 7 cm. No additional LAD was noted. Ultrasound-guided biopsy, performed on the same day showed malignant melanoma positive for melanA and vimentin. She has yet to undergo any staging imaging. She notes that she sees a superintendent meters, Dr. Love in [place], [place] routinely, last was one month ago and no mention of any suspicious lesion were notes. 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 She presents today unaccompanied. She is feeling well overall. She denies any specific symptoms. 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 She remains very active and independent. PAST MEDICAL HISTORY: Coronary artery disease Gastroesophageal reflux disease Hyperlipidemia Hypertension Diverticulitis PAST SURGICAL HISTORY: Bladder repair surgery Hysterectomy Partial colectomy secondary to diverticulitis Cholecystectomy Coronary artery stent MEDICATIONS: NTG SL 0.3 mg q5 min PRN Plavix 75 mg daily Esomeprazole 40 mg daily Enalapril 10 mg daily Hydrochlorothiazide 25 mg daily Metoprolol succinate 50 mg daily KCl 10 mEq daily Furosemide 20 mg daily ALLERGIES: Patient has no known allergies. SOCIAL HISTORY: She lives at home in [place], [place] with her daughter. She has one child. She has a prior smoking history, quit 30 years ago. She drinks one glass of wine weekly. She denies illicit drug use. FAMILY HISTORY: Non-contributory REVIEW OF SYSTEMS: As per HPI PHYSICAL EXAMINATION: Vitals BP 136/76 (BP Location: Right arm) Pulse 83 Temp 36.4 ??C (97.6 ??F) (Temporal) Resp 17 Wt 68.4 kg (150 lb 14.4 oz) SpO2 96% General Appearance: Well-appearing, in no apparent distress. ECO HEENT: Normocephalic, atraumatic. Pupils equal, round and reactive to light. Sclera anicteric. Oropharynx clear. Lymph nodes: Freely mobile approximately 5.5 cm lymph node in the left axilla. Lungs: Clear to auscultation bilaterally. No wheezes, rales or rhonchi. Heart: Regular rate and rhythm. No murmurs, rubs, or gallops. Abdomen: Soft, non-tender and non-distended. Normoactive bowel sounds. No hepatosplenomegaly. Extremities: No edema, clubbing or cyanosis. 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 Neuro: Non-focal. CN II-XII intact, 5/5 strength in bilateral upper and lower extremities, sensation intact throughout, normal gait, 2+ patellar reflexes, no dysmetria/dysdiadokinesia. LABORATORY: No results found for this or any previous visit (from the past 24 hour(s)). PATHOLOGY: Diagnosis: Consult material received from [place], [place] (OSC: [id number]; 06/30/2023). Lymph node, left axillary, biopsy - Metastatic malignant melanoma Microscopic Description and Comment: Immunohistochemical stains provided show tumor cells to be positvie for MelanA and Vimentin, while negative for HMB45, K7, K20, HMWK, ER, CD10, CD45. RADIOLOGY: Ultrasound, left axilla DATE: 06/30/2023 Impression: Complex, irregular shaped hypoechoic left axillary mass measuring 7 x 5.2 x 4.1 cm withheterogenous internal echotexture and .internal vascularity. ASSESSMENT AND PLAN: Mrs. aBker is a 78-year-old female presenting for an initial consultation for newly diagnosed metastatic malignant melanoma of unknown primary. We reviewed her limited imaging and pathology today consistent with at least cN1b, stage IIIB disease. Luckily she is feeling well with only minimal discomfort in her left arm. We discussed the need for complete staging with PET/CT and bMRI. We also recommended she follow up with her superintendent meters for a repeat FBSE. We reviewed that the timing and intent of treatment would be predicated on her scans and that she would be a candidate for immunotherapy either richard-adjuvantly, adjuvantly or in a palliative setting. We reviewed the rationale, scheduling and toxicity profile of immunotherapy including but not limited to endocrinopathy, dermatitis, nephritis, hepatitis, colitis, pneumonitis, carditis and pancreatitis. Depending on her disease burden, we will select either PD-1 monotherapy or Opdualag rather than ipi/nivo given her age. We discussed sending NGS and BRAF IHC on her tumor to assist with prognostication and determine potential for targeted therapy at a later date. We also discussed prioritizing getting her seen by Dr. Landon Davis in surgical oncology to help determine resectability if her PET/CT does not show metastatic disease. She will return to clinic in 3 weeks after the completion of her scans. D/w Dr. Chairez who agrees with this assessment and plan Gabe Pino MD Divisions of Hematology and Oncology [phone] Cosigned by Jose Chairez MD PhD at 07/18/2023 1:14 PM NEWSPAPER CARRIER PAPER CARRIER PAPER CARRIER Associated attestation - Jose Chairez MD PhD - 07/18/2023 1:14 PM NEWSPAPER CARRIER I have seen and examined the patient. I agree with the findings and plan of care as documented in the resident/fellow's note. My total encounter time on 07/18/2023 was 58 minutes which was spent in the activities documented in the note. This includes time spent prior to the visit and after the visitin direct care of the patient. This time does not include time spent in any separately reportable services. documented in this encounter Plan of Treatment Not on file documented as of this encounter Procedures Procedure Name Priority Date/Time Associated Diagnosis Comments MATTHIAS XT 648-GENE NGS: SOLID TUMOR OR HEMATOLOGIC MALIGNANCY Routine 07/18/2023 11:03 AM NEWSPAPER CARRIER Malignant melanoma of unknown origin (HCC) documented in this encounter Results * MRI Brain W WO Contrast (07/31/2023 6:27 PM NEWSPAPER CARRIER) Anatomical Region Laterality Modality Head and Neck N/A Magnetic Resonan ce 08/01/2023 8:31 AM NEWSPAPER CARRIER Addenda Addendum by Zeenat Acosta MD on 08/01/2023 9:37 AM NEWSPAPER CARRIER The results were discussed with Dr. Jose Chairez by Buster Blanca, [employer] Tech on 08/01/2023 at 09:35 hours. Edited by: Buster Blanca Electronically signed by: Zeenat Alcala M.D. Impressions 08/01/2023 9:31 AM NEWSPAPER CARRIER No MR evidence of intracranial metastases. Multiple [...] Zeenat Alcala M.D. Narrative 08/01/2023 9:31 AM NEWSPAPER CARRIER EXAMINATION: Magnetic resonance imaging (MRI) of the [...] MRI PROCEDURES E dited Result - Final * PET/CT FDG Whole Body (07/31/2023 4:06 PM NEWSPAPER CARRIER) Anatomical Region Laterality Modality Body N/A Positron Emissio n Tomography (PET) 07/31/2023 4:57 PM NEWSPAPER CARRIER Impressions 07/31/2023 6:16 PM NEWSPAPER CARRIER 1. ??Hypermetabolic left axillary mass in keeping [...] Hernando Cordova M.D. Narrative 07/31/2023 6:16 PM NEWSPAPER CARRIER EXAMINATION: TUMOR FDG-PET/CT IMAGING DATE OF STUDY: ??07/31/2023 SCANNER: [facility] RADIOPHARMACEUTICAL: 16.5 [...] obtained. ??The study was interpreted on the [employer] workstation. ??The mean liver SUV (reported for automotive quality manager purposes) is 2.4. The total scanned [...] FDG-PET/CT IMAGING DATE OF STUDY: 07/31/2023 SCANNER: [facility] RADIOPHARMACEUTICAL: 16.5 [...] obtained. The study was interpreted on the [employer] workstation. The mean liver SUV (reported for automotive quality manager purposes) is 2.4. The total scanned [...] Electronically signed by: Hernando Cordova M.D. Jose Cahirez MD PhD IMG PET PROCEDURES F inal Result * [facility] xT 648-gene NGS: Solid Tumor or Hematologic Malignancy (07/18/2023 11:03 AM NEWSPAPER CARRIER) Reason for Study To identify somatic and germline mutations relevant to patient's cancer. 07/27/2023 12:24 PM NEWSPAPER CARRIER [facility] Genetic Diseases Assessed Cancer 07/27/2023 12:24 PM NEWSPAPER CARRIER [facility] Description of Ranges of DNA Sequences Examined 648 gene panel 07/27/2023 12:24 PM NEWSPAPER CARRIER [facility] Overall Interpretation positive 07/27/2023 12:24 PM NEWSPAPER CARRIER [facility] MSI Stable 07/27/2023 12:24 PM NEWSPAPER CARRIER [facility] TMB 18.9 m/MB 07/27/2023 12:24 PM NEWSPAPER CARRIER [facility] Please review the PDF for results. 07/27/2023 12:24 PM NEWSPAPER CARRIER [facility] Comment:[facility] link MMR Overall Result normal 07/27/2023 12:24 PM NEWSPAPER CARRIER [facility] MLH1 Presence or Absence present 07/27/2023 12:24 PM NEWSPAPER CARRIER [facility] PMS2 Presence or Absence present 07/27/2023 12:24 PM NEWSPAPER CARRIER [facility] MSH2 Presence or Absence present 07/27/2023 12:24 PM NEWSPAPER CARRIER [facility] MSH6 Presence or Absence present 07/27/2023 12:24 PM NEWSPAPER CARRIER [facility] PD-L1 (22C3) Combined Positive Score 50 07/27/2023 12:24 PM NEWSPAPER CARRIER [facility] PD-L1 (22C3) Tumor Proportion Score 40 % 07/27/2023 12:24 PM NEWSPAPER CARRIER [facility] HRD Interpretation Not Detected 07/27/2023 12:24 PM NEWSPAPER CARRIER [facility] HRD Analysis Type RNA 12:24 PM NEWSPAPER CARRIER [facility] HRD RNA Threshold 50 023 12:24 PM NEWSPAPER CARRIER [facility] Fusion Addendum Issue Type NEGATIVE Negative - This addendum is being issued to report that no gene fusions or altered splicing variants from RNA sequencing analysis were found. 07/27/2023 12:24 PM NEWSPAPER CARRIER [facility] Pertinent Negatives BRAF, KIT 07/27/2023 12:24 PM NEWSPAPER CARRIER [facility] Low Coverage Regions KDM5D 07/27/2023 12:24 PM NEWSPAPER CARRIER [facility] Therapy Count 1 07/27/2023 12:24 PM NEWSPAPER CARRIER [facility]us: Potential Therapy 1 Gene: 7989^NRAS^HGNC Variant: p.Q61R Agent: Binimetinib Tissue: Melanoma Association: response Evidence Status: Consensus Evidence ID: NCCN Evidence URL: FDA Approved?: Yes on label?: No 07/27/2023 12:24 PM NEWSPAPER CARRIER [facility] Trial Count 3 07/27/2023 12:24 PM NEWSPAPER CARRIER [facility]: Clinical Trial Match 1 Clinical Trial NCT ID: [id number] Clinical Trial Title: Study of INBRX-105 and INBRX-105 With Pembrolizumab in Patients With Solid Tumors Including Head and Neck Cancer Clinical Trial URL: https://clinical trials.gov/ct2/s how/ECR97596379 Clinical Phase: Phase 2 07/27/2023 12:24 PM NEWSPAPER CARRIER [facility]us: Clinical Trial Match 2 Clinical Trial NCT ID: [id number] Clinical Trial Title: A Study to Evaluate the Safety and Activity of Belvarafenib as a Single Agent and in Combination With Either Cobimetinib or Cobimetinib Plus Nivolumab in Patients With NRAS-mutant Advanced Melanoma. Clinical Trial URL: https://clinical trials.gov/ct2/s how/RSS79603713 Clinical Phase: Phase 1 Matched criteria: NRAS p.Q61R mutation 07/27/2023 12:24 PM NEWSPAPER CARRIER [facility]us: Clinical Trial Match 3 Clinical Trial NCT ID: [id number] Clinical Trial Title: Phase II Study of Olaparib and Pembrolizumab in Advanced Melanoma With Homologous Recombination (HR) Mutation Clinical Trial URL: https://clinical trials.gov/ct2/s how/CON24916127 Clinical Phase: Phase 2 Matched criteria: ARID1B p.R1802* mutation 07/27/2023 12:24 PM NEWSPAPER CARRIER [facility] Tissue 07/18/2023 11:0 3 AM NEWSPAPER CARRIER 07/20/2023 4:08 PM NEWSPAPER CARRIER Narrative This result has genomic variants that were not included in this document. Jose Chairez MD PhD LAB GENETIC TESTING Final Result [facility], [address] [phone] [facility] [address] [facility], [place] [address] documented in this encounter Visit Diagnoses Diagnosis Melanoma of axilla (HCC)- Primary Malignant melanoma of unknown origin (HCC) Malignant melanoma of unknown origin (HCC) Malignant melanoma of unknown origin (HCC) documented in this encounter Historical Medications * This list may reflect changes made after this encounter. furosemide (LASIX) 20 mg tabletIndications: Edema Take 1 tablet (20 mg total) by mouth as needed esomeprazole DR (NexIUM) 40 mg capsuleIndications :acid reflux Take 1 capsule (40 mg total) by mouth as needed 05/08/2008 zinc gluconate 50 mg tabletIndications: supplement Take 1 tablet (50 mg total) by mouth every morning omega-3 fatty acids 500 mg capsuleIndications :supplement Take 1 tablet by mouth every morning 12/24/2014 enalapril (VASOTEC) 10 mg tabletIndications: hypertension Take 1 tablet (10 mg total) by mouth every morning clopidogreL (PLAVIX) 75 mg tabletIndications: Myocardial Reinfarction Prevention,Thrombo sis Prevention after PCI,1 cardiac stent Take 1 tablet (75 mg total) by mouth every morning 06/26/2023 added in this encounter Orders Lab Orders Without Results Count Last Ordered D ate First Ordered Date [facility] XT/XE NORMAL BLOOD 1 07/18/2023 Outpatient Referral Count Last Ordered Date Fir st Ordered Date AMB REFERRAL TO ONCOLOGY 1 07/18/2023 Appointment Requests Count Last Ordered Date Fi rst Ordered Date [facility] CLINIC APPOINTMENT REQUEST 1 023 [facility] LAB APPOINTMENT 1 07/18/2023 documented in this encounter Care Teams Hot Car Operator Relationship Specialty Start Date End Date Becky Conroy NP [address] [place] [address] PCP - General Nurse Practitioner 07/06/23 documented as of this encounter
--- OUTSIDE RECORDS SUMMARY | 2024-09-17 04:24 | XMS_ITS | Encounter Summary ---
Author Organization [facility] Address [address] [place] [address] Phone Care Team Providers Care Shot Fireman Name Role Phone Becky Conroy NP Primary Care Provider [phone] Encounter Details Date Type Department Care Team (Late st Contact Info) Description 07/13/2023 Orders Only [facility] [address] [place] [address] Jose Chairez MD PhD [address] [facility] [address] [place] [address] Malignant melanoma of unknown origin (HCC) Social History Tobacco Use Types Packs/Day Years Used Date Smoking Tobacco: Never Assessed Comments Unknown Sex and Gender Information Value Date Recorded Sex Assigned at Not on file Legal Sex Female 1:54 AM BUSINESS PROCESS MANAGER Gender Identity Not on file Sexual Orientation Not on file documented as of this encounter Plan of Treatment Not on file documented as of this encounter Procedures Procedure Name Priority Date/Time Associated Diagnosis Comments SURGICAL PATHOLOGY Routine 07/13/2023 9: 11 AM CDT Malignant melanoma of unknown origin (HCC) documented in this encounter Results * Surgical pathology (07/13/2023 9:11 AM CDT) Tissue (Miscellaneous) 07/13/2023 9:11 AM CDT 07/13/2023 9:11 AM CDT Narrative [facility] - 07/14/2023 2:52 PM CDT EPIC results best viewed via link to PDF [facility] Pathology Consult Service [address], [address], [place] [address] Note to Patients: This report may contain [...] and explain the details. SURGICAL PATHOLOGY REPORT * Consult Report * [facility] is providing an additional review of previously collected tissue. FINAL Patient Name: ??GUEVARA BAKER Address: ??[address] [place] [address], ?[place], [place] ??[address] Gender: ??F : ??1945 (Age: 78) Hospital #: ??[id number] Patient Type: ??[facility] Location: ??Medical Oncology Taken: ??07/13/2023 Received: ??07/13/2023 Accessioned: ??07/13/2023 Reported: ??07/14/2023 Physician(s): Jose Chairez M.D. [facility] Department of Pathology [address] [place] [address] P: [phone] F: [phone] Histology: [phone] Diagnosis: Consult material received from [place], [place] (OSC: [id number]; 06/30/2023). ?? Lymph node, left axillary, biopsy ? - Metastatic malignant melanoma /07/14/2023 09:46 By this signature, I attest that the above diagnosis is based upon my personal examination of the slides(and/or other material indicated in the diagnosis). Benjamín Tamez M.D. Report Electronically Reviewed and Signed Out By Benjamín Tamez M.D. 07/14/2023 14:52:18 Microscopic Description and Comment: Immunohistochemical stains provided show tumor cells to be positvie for MelanA and Vimentin, while negative for HMB45, K7, K20, HMWK, ER, CD10, CD45. Gwen Kiser M.D. History: The patient is a 78-year-old woman with history of malignant melanoma of unknown origin. Materials Received: Received for review are fifteen slides labeled [id number], accompanied by a corresponding pathology report. The material originates from [place], [place]. Selected slide(s) may be digitally scanned for our files, and all materials are returned to the referring institution, along with a copy of our final report. Any testing required for diagnostic purposes was performed in the Department of Pathology and Immunology at [facility], [address] [place] [address] CLIA # [id number] The performance characteristics of the testing cited in this report (if any) were determined by the ??[facility] Department of Pathology and Immunology [facility], as part of an ongoing quality lead program and in compliance with federally mandated regulations drawn from the Clinical Laboratory Improvement Act of 1988 (CLIA '88). ??Some of these tests rely on the use of analyte specific reagents (ASR) and are subject to specific labeling requirements by the US Food and Drug Administration. ??Such diagnostic tests may only be performed in a facility that is certified by the Department of Health and Human Services as a high complexity laboratory under CLIA '88. ??The FDA has determined that such clearance or approval is not necessary. ??ASRs should not be regarded as investigational or for research. ??ASRs were developed and the performance characteristics determined by the [facility], [facility] Department of Pathology and Immunology. ??It has not been cleared or approved by the U.S. Food and Drug Administration. ??Any test designated as LDT was developed and its performance characteristics determined by [facility]. It has not been cleared or approved by the FDA. This test is used for clinical purposes and should not be regarded as investigational or for research. Report images and/or scanned reports, if included, only viewable in PDF version of report. us Jose Chairez MD PhD LAB PATHOLOGY ORDERA BLES Final Result [facility] [address] [facility] [address] [place] [address] documented in this encounter Visit Diagnoses Diagnosis Malignant melanoma of unknown origin (HCC) documented in this encounter Care Teams Shot Fireman Relationship Specialty Start Date End Date Becky Conroy NP [address] [place] [address] PCP - General Nurse Practitioner 07/06/23 documented as of this encounter
--- OUTSIDE RECORDS SUMMARY | 2024-09-17 04:24 | XMS_ITS | Encounter Summary ---
Author Organization [facility] Address [address] [place] [address] Phone Care Team Providers Care Stna Name Role Phone Becky Conroy NP Primary Care Provider [phone] Encounter Details Date Type Department Care Team (Late st Contact Info) Description 07/18/2023 11:30 AM AIR CONDITIONING MECHANIC INDUSTRIAL Lab [facility] Oncology [address] [place] [phone] Malignant melanoma of unknown origin (HCC) Social History Tobacco Use Types Packs/Day Years Used Date Smoking Tobacco: Never Assessed Comments Unknown Sex and Gender Information Value Date Recorded Sex Assigned at Not on file Legal Sex Female 1:54 AM AIR CONDITIONING MECHANIC INDUSTRIAL Gender Identity Not on file Sexual Orientation Not on file documented as of this encounter Plan of Treatment Not on file documented as of this encounter Visit Diagnoses Diagnosis Malignant melanoma of unknown origin (HCC) documented in this encounter Orders Appointment Requests Count Last Ordered Date Fi rst Ordered Date ONCBCN LAB APPOINTMENT 1 07/18/2023 documented in this encounter Care Teams Stna Relationship Specialty Start Date End Date Becky Conroy NP [address] [place] [address] PCP - General Nurse Practitioner 07/06/23 documented as of this encounter
--- OUTSIDE RECORDS SUMMARY | 2024-09-17 04:24 | XMS_ITS | Encounter Summary ---
Author Organization [facility] Healthcare Address [address] [place] [address] Care Team Providers Care Manager Track Name Role Phone Becky Conroy NP Primary Care Provider [phone] Encounter Details Date Type Department Care Team ([facility] st Contact Info) Description 07/18/2023 11:45 AM CLIENT SPECIALIST Lab [address] [id number] Malignant melanoma of unknown origin (HCC) Social History Tobacco Use Types Packs/Day Years Used Date Smoking Tobacco: Never Assessed Comments Unknown Sex and Gender Information Value Date Recorded Sex Assigned at Not on file Legal Sex Female 1:54 AM CLIENT SPECIALIST Gender Identity Not on file Sexual Orientation Not on file documented as of this encounter Plan of Treatment Not on file documented as of this encounter Visit Diagnoses Diagnosis Malignant melanoma of unknown origin (HCC) documented in this encounter Orders Lab Orders Without Results Count Last Ordered D ate First Ordered Date TEMPUS XT/XE NORMAL BLOOD 1 07/18/2023 documented in this encounter Care Teams Manager Track Relationship Specialty Start Date End Date Becky Conroy NP [address] [place], [place] [id number] PCP - General Nurse Practitioner 07/06/23 documented as of this encounter
--- OUTSIDE RECORDS SUMMARY | 2024-09-17 04:24 | XMS_ITS | Encounter Summary ---
Author Organization [facility] Address [address] [place] [address] Phone Care Team Providers Care Technical Support Professional Name Role Phone Becky Conroy NP Primary Care Provider [phone] Encounter Details Date Type Department Care Team (Late st Contact Info) Description 07/12/2023 Orders Only [facility] Oncology [address] [place] [address] Jose Chairez MD PhD [address] [facility] [address] [place], [place] [phone] Malignant melanoma of unknown origin (HCC) (Primary Dx) Social History Tobacco Use Types Packs/Day Years Used Date Smoking Tobacco: Never Assessed Comments Unknown Sex and Gender Information Value Date Recorded Sex Assigned at Not on file 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 [place] [id number] Note to Patients: This report may contain [...] SURGICAL PATHOLOGY REPORT * Consult Report * [facility] is providing an additional review of previously collected tissue. FINAL Patient Name: ??GUEVARA BAKER Address: ??[address] [place] [address], ?[place], [place] ??[address] Gender: ??F : ??1945 (Age: 78) Hospital #: ??[id number] Patient Type: ??[facility] Location: ??Medical Oncology Taken: ??07/13/2023 Received: ??07/13/2023 Accessioned: ??07/13/2023 Reported: ??07/14/2023 Physician(s): Jose Chairez M.D. [facility] Department of Pathology [facility] [place] [id number] P: [phone] F: [phone] Histology: [phone] Diagnosis: Consult material received from [place], [place] (OSC: [id number]; 06/30/2023). ?? Lymph node, left axillary, biopsy ? - Metastatic malignant melanoma 07/14/2023 09:46 By this signature, I attest that [...] Received for review are fifteen slides labeled [id number], accompanied by a corresponding pathology report. The material originates from [place], [place]. Selected slide(s) may be digitally scanned for our files, and all materials are returned to the referring institution, along with a copy of our final report. Any testing required for diagnostic purposes was performed in the Department of Pathology and Immunology at [facility], [address] [place] [id number] CLIA # [id number] The performance characteristics of the testing cited in this report (if any) were determined by the ??[facility] Department of Pathology and Immunology [facility], as part of an ongoing head of quality program and in compliance with federally mandated [...] characteristics determined by the [facility], [facility] Department of Pathology and Immunology. ??It has not been cleared or approved by the U.S. Food and Drug Administration. ??Any test designated as LDT was developed and its performance characteristics determined by [facility]. It has not been cleared or approved by the FDA. This test is used for clinical purposes and should not be regarded as investigational or for research. Report images and/or scanned reports, if included, only viewable in PDF version of report. us Jose Chairez MD PhD LAB PATHOLOGY [facility] Final Result [facility] [address] [address] documented in this encounter Visit Diagnoses Diagnosis Malignant melanoma of unknown origin (HCC)- Primary Malignant melanoma of unknown origin (HCC) documented in this encounter Care Teams Technical Support Professional Relationship Specialty Start Date End Date Becky Conroy NP [address] [place] [address] PCP - General Nurse Practitioner 07/06/23 documented as of this encounter
--- OUTSIDE RECORDS SUMMARY | 2024-09-17 04:24 | XMS_ITS | Encounter Summary ---
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
--- OUTSIDE RECORDS SUMMARY | 2024-09-17 04:26 | XMS_ITS | Continuity of Care Document ---
Author Organization [facility] Address [address] [place] [address] Phone Care Team Providers Care Assurance Sourcing Manager Name Role Phone Cori Mcginnis Unavailable Unavailable Allergies, Adverse Reactions, Alerts Substance Reaction Status Criticality No Known Allergies Active No Inform ation Medications Medication Instructions Dosage Effective Dates (start - stop) Status Comments multivitamin tablet - Active Plavix 75 mg tablet - Active metoprolol succinate ER 50 mg tablet,extended release 24 hr - Active hydrochlorothiazide 25 mg tablet - Active NEXIUM (unknown strength) Not Available - Active Vasotec 10 mg tablet - Active Procedures Procedure Date Synvisc 3 Dose Asp/inject major joint or bursa w/o US g uidance Synvisc 3 Dose Asp/inject major joint or bursa w/o US g uidance BMI Documented Above Normal Limit F/U Pl an Doc Synvisc 3 Dose Asp/inject major joint or bursa w/o US g uidance Synvisc 3 Dose Asp/inject major joint or bursa w/o US g uidance Asp/inject major joint or bursa w/o US g uidance Depo Medrol Methylprednisolone 40 MG inj X-ray exam foot, minimum 3 views 2022 Office/outpatient visit,est, mod 2022 Depo Medrol Methylprednisolone 40 MG inj Asp/inject major joint or bursa w/o US g uidance Synvisc One Asp/inject major joint or bursa w/o US g uidance Synvisc One Asp/inject major joint or bursa w/o US g uidance Depo Medrol Methylprednisolone 40 MG inj Synvisc One Asp/inject major joint or bursa w/o US g uidance Synvisc One Office/outpatient visit,est, mod 2021 Asp/inject major joint or bursa w/o US g uidance Synvisc One Synvisc 3 Dose Asp/inject major joint or bursa w/o US g uidance Synvisc 3 Dose Asp/inject major joint or bursa w/o US g uidance Synvisc 3 Dose Asp/inject major joint or bursa w/o US g uidance Synvisc 3 Dose Asp/inject major joint or bursa w/o US g uidance Synvisc 3 Dose Asp/inject major joint or bursa w/o US g uidance Synvisc 3 Dose Asp/inject major joint or bursa w/o US g uidance Asp/inject major joint or bursa w/o US g uidance Synvisc One Synvisc 3 Dose Asp/inject major joint or bursa w/o US g uidance Synvisc 3 Dose Asp/inject major joint or bursa w/o US g uidance Synvisc 3 Dose Asp/inject major joint or bursa w/o US g uidance Synvisc 3 Dose Asp/inject major joint or bursa w/o US g uidance Synvisc 3 Dose Asp/inject major joint or bursa w/o US g uidance Synvisc 3 Dose Asp/inject major joint or bursa w/o US g uidance Synvisc One Asp/inject major joint or bursa w/o US g uidance Synvisc One Asp/inject major joint or bursa w/o US g uidance Synvisc One Synvisc One Asp/inject major joint or bursa w/o US g uidance Synvisc One Synvisc One Synvisc One Synvisc One Asp/inject major joint or bursa 015 Asp/inject major joint or bursa 014 Synvisc One Synvisc One X-ray exam both knees, standing 014 X-ray exam knee, 1 or 2 views 4 Asp/inject major joint or bursa 014 Synvisc One Current Tobacco Non User BMI Doc Out Of Norm Limits No F/U Plan D oc No Reas BP Normal No Follow Up Required 014 Synvisc One X-ray exam knee, 1 or 2 views 4 Asp/inject major joint or bursa 013 Synvisc One Synvisc One Asp/inject major joint or bursa 013 Synvisc One Synvisc One Asp/inject major joint or bursa 012 Synvisc One Synvisc One Office/outpatient visit,nazanin low 2011 Drain/inject major jointor bursa 2011 Depo Medrol Methylprednisolone 40 MG inj X-ray exam of knee, 1 or2 views 012 X-ray exam of both knees, standing Office/[place] [facility] [place] Drain/inject major jointor bursa 2010 Depo Medrol Methylprednisolone 40 MG inj Advance Directives Directive Yes / No Effective Date File Name No Information Encounters Encounter Description Practice Location Reason(s) For Visit Diagnoses Date Provider Providers Copied on Encounter [facility], [address], [id number], [place] tel:[phone] [facility] bilateral knees (chief complaint) Bilateral primary osteoarthritis of knee 4 Carrol Persaud. [address], [id number], [place]. tel:[phone] [facility], [address], [id number], [place] tel:[phone] [facility] Unilateral primary osteoarthritis , left kneeUnilateral primary osteoarthritis , right knee 4 Dindevyn Persaud. [address], [id number], [place]. tel:[phone] [facility], [address], [id number], [place] tel:[phone] [facility] [facility] janet knee (chief complaint) Bilateral primary osteoarthritis of knee 4 Dindevyn Persaud. [address] [facility], [address], [id number], [place]. tel:[phone] Referring Provider: Cori Wiate, [address] [address], [place], [address] . tel:[phone] [facility], [address] [address], [place], [place], [address], [place] tel:[phone] [facility] Unilateral primary osteoarthritis , left kneeUnilateral primary osteoarthritis , right knee 4 Carrol Persaud. [address] [place] [address], [place], [place], [address], [place]. tel:[phone] [facility], [address] [place] [address], [id number], [place] tel:[phone] [facility] janet knee (chief complaint) Bilateral primary osteoarthritis of knee 4 Carrol Persaud. [address] [place] [address], [id number], [place]. tel:[phone] Referring Provider: Cori Waite, [address] [place] [address], [place], [address] . tel:[phone] Office/outpa tient visit,est, mod [facility], [address] [place] [address], [place], [place], [address], [place] tel:[phone] [facility] Hammer toe right foot (chief complaint) Pain in right footOther acquired hammer toe of right foot Sep-0 3 Samia Gutierrez. [address] [place] [address], [place], [place], [address], [place]. tel:[phone] Referring Provider: Matt Waite, [address] [place] [address], [place], [address] . tel:[phone] [facility], [address] [place] [address], [place], [id number], [place] tel:[phone] [facility] janet knee (chief complaint) Bilateral primary osteoarthritis of knee 3 Carrol Persaud. [address] [place] [address], [place], [place], [address], [place]. tel:[phone] Referring Provider: Cori Waite, [address] [place] [address], [place], [address] . tel:[phone] [facility], [address] [address], [place], [place], [address], [place] tel:[phone] [facility] bilateral knees (chief complaint) Bilateral primary osteoarthritis of knee 3 Dinan Cori. [address] [facility], [address] [address], [place], [place], [address], [place]. tel:[phone] Referring Provider: Cori Waite, [address] [place] [address], [place], [address] . tel:[phone] [facility], [address] [place] [address], [place], [place], [address], [place] tel:[phone] [facility] Unilateral primary osteoarthritis , left kneeUnilateral primary osteoarthritis , right knee 3 Dinan Cori. [address] [place] [address], [place], [place], [address], [place]. tel:[phone] [facility], [address] [address], [place], [place], [address], [place] tel:[phone] [facility] bilateral knees (chief complaint) Bilateral primary osteoarthritis of knee 0 3 Dinan Cori. [address] [place] [address], [address] [address], [place], [place], [address], [place]. tel:[phone] Referring Provider: Cori Waite, [address] [place] [address], [place], [address] . tel:[phone] [facility], [address], [id number], [place] tel:[phone] [facility] bilateral knees (chief complaint) Bilateral primary osteoarthritis of knee 2 Dinan Cori. [address] [place] [address], [address] [address], [place], [place], [address], [place]. tel:[phone] Referring Provider: Cori Waite, [address] [facility] Suite [facility], [place], [address] . tel:[phone] [facility], [address] [address], [place], [place], [address], [place] tel:[phone] [facility] Bilateral primary osteoarthritis of knee 2 Carrol Persaud. [address] [facility], [address] [address], [place], [place], [address], [place]. tel:[phone] Office/outpa [place]ient visit[place]est, [facility], [address] [address], [place], [place], [address], [place] tel:[phone] [facility] bilat knees (chief complaint) Unilateral primary osteoarthritis , left kneeUnilateral primary osteoarthritis , right knee 2 Steffany Villagomez. [address] [facility], [address] [address], [place], [place], [address], [place]. tel:[phone] Referring Provider: Hernando Cerda, [address] [address], [place], [address] . tel:[phone] [facility], [address] [address], [place], [place], [address], [place] tel:[phone] [facility] Bilateral primary osteoarthritis of knee 2 Carrol Persaud. [address] [facility], [address] [address], [place], [place], [address], [place]. tel:[phone] [facility], [address] [address], [place], [place], [address], [place] tel:[phone] [facility] janet knee (chief complaint) Bilateral primary osteoarthritis of knee 1 Carrol Persaud. [address] [facility], [address] [address], [place], [place], [address], [place]. tel:[phone] Referring Provider: Cori Waite, [address] [facility] [address], [place], [address] . tel:[phone] [facility], [address] [address], [place], [place], [address], [place] tel:[phone] [facility] Bilateral primary osteoarthritis of knee 1 Dinan Cori. [address] [facility], [address] [address], [place], [place], [address], [place]. tel:[phone] [facility], [address] [address], [place], [place], [address], [place] tel:[phone] [facility] janet knee (chief complaint) Bilateral primary osteoarthritis of knee Oct-0 1 Dinan Cori. [address] [place] [address], [place], [place], [address], [place]. tel:[phone] Referring Provider: Cori Waite, [address] [address], [place], [address] . tel:[phone] [facility], [address] [place] [address], [id number], [place] tel:[phone] [facility] Bilateral primary osteoarthritis of knee 1 Dinan Cori. [address] [place] [address], [id number], [place]. tel:[phone] [facility], [address], [id number], [place] tel:[phone] [facility] bilateral knees (chief complaint) Bilateral primary osteoarthritis of knee January- 0 Dinan Cori. [address] [place] [address], [address] [address], [place], [place], [address], [place]. tel:[phone] Referring Provider: Hernando Cerda, [address] [facility] Suite [facility], [place], [address] . tel:[phone] [facility], [address] [address], [place], [place], [address], [place] tel:[phone] [facility] Bilateral primary osteoarthritis of knee Dec-09 17- 0 Dinan Cori. [address] [facility], [address] [address], [place], [place], [address], [place]. tel:[phone] [facility], [address] [address], [place], [place], [address], [place] tel:[phone] [facility] bilat knees (chief complaint) Bilateral primary osteoarthritis of knee 9 Dinan Cori. [address] [address], [place], [place], [address], [place]. tel:[phone] Referring Provider: Hernando Cerda, [facility] [address], [place], [address] . tel:[phone] [facility], [address] [address], [place], [place], [address], [place] tel:[phone] [facility] Unilateral primary osteoarthritis , right kneeUnilateral primary osteoarthritis , left knee 9 Dinan Cori. [address] [address], [place], [place], [address], [place]. tel:[phone] [facility], [address] [address], [place], [place], [address], [place] tel:[phone] [facility] Kneepain (chief complaint) Bilateral primary osteoarthritis of knee 9 Dinan Cori. [address] [facility], [address] [address], [place], [place], [address], [place]. tel:[phone] Referring Provider: Cori Waite, [address] [place] [address] Suite [facility], [place], [address] . tel:[phone] [facility], [address] [address], [place], [place], [address], [place] tel:[phone] [facility] Bilateral primary osteoarthritis of knee 2 8-201 9 Dinan Cori. [address] [facility], [address] [address], [place], [place], [address], [place]. tel:[phone] [facility], [address] [facility] [address], [place], [place], [address], [place] tel:[phone] [facility] bilateral knees (chief complaint) Bilateral primary osteoarthritis of knee 0 2-201 8 Dinan Cori. [address] [facility], [address], [place], [place], [address], [place]. tel:[phone] Referring Provider: Cori Waite, [address] [address], [place], [address] . tel:[phone] [facility], [address], [id number], [place] tel:[phone] [facility] Bilateral primary osteoarthritis of knee 2 1-201 8 Dinan Cori. [address] [facility], [address], [place], [place], [address], [place]. tel:[phone] [facility], [address] [address], [place], [place], [address], [place] tel:[phone] [facility] bilateral knees (chief complaint) Bilateral primary osteoarthritis of knee 2 5-201 7 Dinan Cori. [address] [facility], [address] [address], [place], [place], [address], [place]. tel:[phone] Referring Provider: Cori Waite, [address] [facility] [address] [facility], [place], [address] . tel:[phone] [facility], [address] [address], [place], [place], [address], [place] tel:[phone] [facility] Bilateral primary osteoarthritis of knee Jun-0 4-201 7 Dinan Cori. [address] [facility], [address], [id number], [place]. tel:[phone] [facility], [address] [facility] [address], [place], [place], [address], [place] tel:[phone] [facility] bilateral knees (chief complaint) Bilateral primary osteoarthritis of knee 7 Dinan Cori. [address] [facility], [address], [place], [place], [address], [place]. tel:[phone] Referring Provider: Cori Waite, [address] [facility] [address], [place], [address] . tel:[phone] [facility], [address] [address], [place], [address], [place] tel:[phone] [facility] Bilateral primary osteoarthritis of knee 6 Dinan Cori. [address] [facility], [address] [address], [place], [place], [address], [place]. tel:[phone] [facility], [address] [address], [place], [place], [address], [place] tel:[phone] [facility] [employer] [facility] bilateral knees (chief complaint) Bilateral primary osteoarthritis of knee 0 6 Dinan Cori. [address] [facility], [address] [address], [place], [place], [address], [place]. tel:[phone] Referring Provider: Cori Waite, [address] [facility] [address] [facility], [place], [address] . tel:[phone] [facility], [address], [id number], [place] tel:[phone] [facility] Bilateral primary osteoarthritis of knee Fe- 6 Steffany Villagomez. [address] [facility], [address] [address], [place], [address], [place]. tel:[phone] [facility], [address], [id number], [place] tel:[phone] [facility] bilateral knees (chief complaint) LOC PRIM OSTEOART-L/LEG Rod-0 8-201 5 Galidevyn Persaud. [address] [facility], [address] [address], [place], [place], [address], [place]. tel:[phone] Referring Provider: Cori Waite, [address] [facility] [address] [facility], [place], [address] . tel:[phone] [facility], [address] [address], [place], [place], [address], [place] tel:[phone] [facility] Osteoarthrosis , localized, primary, involving lower leg 6 5 Steffany Hernando. [address] [address], [place], [place], [address], [place]. tel:[phone] [facility], [address], [id number], [place] tel:[phone] [facility] Bilat knee (chief complaint) LOC PRIM OSTEOART-L/LEG 2-201 4 Galidevyn Cori. [address] [facility], [address] [address], [place], [place], [address], [place]. tel:[phone] Referring Provider: Cori Waite, [facility] [address], [place], [address] . tel:[phone] [facility], [address] [address], [place], [place], [address], [place] tel:[phone] [facility] LOC PRIM OSTEOART-L/LEG Jun-0 9-201 4 Steffanyjosias Villagomez. [address] [facility], [address] [address], [place], [place], [address], [place]. tel:[phone] [facility], [address] [address], [place], [place], [address], [place] tel:[phone] [facility] bilateral knee pain (chief complaint) PAIN IN LIMBLOC PRIM OSTEOART-L/LEG JOINT PAIN-L/LEG Apr-0 8-201 4 Abeln Becky. [address] [facility], [address] [address], [place], [place], [address], [place]. tel:[phone] Referring Provider: Becky Verdin, [address] [place] [address] Suite [facility], [place], [address] . tel:[phone] [facility], [address] [place] [address], [place], [place], [address], [place] tel:[phone] [facility] bilateral knee pain (chief complaint) LOC PRIM OSTEOART-L/LEG Oct-0 3-201 [address] [facility], [address] [place] [address], [place], [place], [address], [place] tel:[phone] [facility] LOC PRIM OSTEOART-L/LEG May-0 3 Willis Ron. [address] [place] [address], [place], [place], [address], [place]. tel:[phone] [facility], [address] [place] [address], [place], [place], [address], [place] tel:[phone] [employer] [facility] bilateral knee pain (chief complaint) ARTHROPATHY NOS-L/LEG 3 No Information Referring Provider: Melvin Gu, [address] [place] [address], [address]. tel:[phone] [facility], [address] [place] [address], [place], [place], [address], [place] tel:[phone] [facility] [employer] [facility] LOC PRIM OSTEOART-L/LEG May- 2 No Information Referring Provider: Melvin Gu, [address] [place] [address], [address]. tel:[phone] Office/outpa tient visit,est, low [facility], [address] [place] [address], [place], [place], [address], [place] tel:[phone] [facility] DERANG LAT MENISCUS NOSDERANG MED MENISCUS NECLOC PRIM OSTEOART-L/LEG JOINT PAIN-L/LEG Apr- 2 Steffany Mendes [address] [facility], [address], [place], [place], [address], . tel:[phone] Referring Provider: Melvin Gu, [address] [place] [address], [address]. tel:[phone] Office/outpa tient visit,[place], [facility], [address] [facility], [place], [place], [address], tel:[phone] [facility] JOINT PAIN-L/LEGLOC PRIM OSTEOART-L/LEG TEAR MED MENISC KNEE-CUR 1 Steffany Villagomez. [address] [facility], Suite [facility], [place], [place], [address], . tel:[phone] Referring Provider: Melvin Gu, [address] [place] [address], [address]. tel:[phone] Family History Family Member Type Diagnosis Age At Onset Father Problem (finding) stroke Father Problem (finding) hypertension Brother Problem (finding) Stroke Father Problem (finding) Heart Disease Brother Problem (finding) Stroke Mother Problem (finding) Osteoarthritis Mother Problem (finding) Heart Disease Sister Problem (finding) Stroke Mother Problem (finding) stroke Sister Problem (finding) Stroke Father Problem (finding) Osteoarthritis Mother Problem (finding) hypertension Immunizations Vaccine Date Status Comments Pneumo (2 yrs or older)(PPV) administered Source: Other Provider influenza, injectable, quadrivalent, (3 years or older) administered Source: Other Provid er Flu (split) (3 yrs or older) administered Source: Other Provider Flu (split) (3 yrs or older) administered Source: Other Provider Flu (split) (3 yrs or older) administered Source: Other Provider Flu (split) (3 yrs or older) administered Note: patient reported ; Source: Source Unspecified Flu (split) (3 yrs or older) administered Source: New Immunization Record Payers Payer name Insurance type Covered republican ID Authoriza tion(s) [place] [id number] [employer] Senior Supplemental Insurance [id number] Social History Type Description Quantity Date Captured Comments Alcohol Use Details Unknown Caffeine Use Details Unknown Tobacco Use Status No Information Smoking Status Former smoker Non-Smoking Tobacco Use Details : No Details Available : No Details Available Sex Female Vital Signs Date / Time: Height Weight BMI Pulse Rate Blood Pressure Temperature Respiratory Rate Body Surface Area Head Circumference Head Circ. Percentile Wt./Mayito. Percentile BMI percentile Pulse Ox Inhaled Ox 10:00 AM 64.00 in 74.843 kg (165.00 lbs) 28.3 2 kg/m eter (2) Chief Complaint And Reason For Visit From encounter dated '09/06/2024 10:00'. bilateral knees (chief complaint). Description: Ms. Baker comes in the office today for Synvisc One injections to bilateral knees. Reason For Referral Reason For Referral No Information Plan Of Treatment Date Type Action Status Referral Ordered: X-ray exam foot, minimum 3 views RT ordered Referral Ordered: Other Bilateral knee ordered Referral Ordered: X-ray exam knee, 1 or 2 views Bilateral ordered Referral Ordered: X-ray exam both knees, standing ordered Referral Ordered: Synvisc One Bilateral knee Appointment date/timeframe: 06/13/2013 ordered Patient Education Body Mass Index: After Your Visit completed Patient Education Body Mass Index: After Your Visit completed Patient Education Knee Arthritis: After Y our Visit completed History Of Present Illness Encounter Date Complaint History Of Prese nt Illness bilateral knees Ms. Baker com es in the office today for Synvisc One injections to bilateral knees. janet knee Magui is here f or bilateral Synvisc One injections. janet knee Magui returns t o the office today for follow up of bilateral knee pain related to osteoarthritis. She received bilateral cortisone injections on 05/08/2023 with improvement and requests repeat injections today. She was recently diagnosed with melanoma. Sep-05-2023 Hammer toe right foot janet knee Magui returns f or a follow up janet knee pain with osteoarthritis. She received janet cortisone injections on 10/19/2022 followed by janet Synvisc on 04/03/2023, both with improvement. She is requesting repeat janet cortisone injections today. bilateral knees Sophia returns to t he office today for Synvisc One injections for bilateral knees. bilateral knees Ms. Olivia guallpa urns to the office today for follow up of bilateral knee pain related to osteoarthritis. She received Synvisc One injections on 09/08/2022. A few weeks later she turned over in bed and had a significant increase in right knee pain. She requests bilateral knee cortisone injections today. She is considering arthroplasty. bilateral knees Magui is here t [place] for bilateral Synvisc One injections. bilat knees patient presents to the office today for follow up bilat knees janet knee Magui presents for janet knee Synvisc 1 injections. janet knee Magui comes in for janet Synvisc 1 injections. bilateral knees Magui returns t o the office today for Synvisc One bilateral knees. bilat knees Magui is here t [place] for bilateral Synvisc One injections. Kneepain Magui comes to the office for janet Synvisc injections. bilateral knees Magui comes in today for bilateral knee Synvisc One injections. bilateral knees Magui comes int o the office today for bilateral knee Synvisc One injections. bilateral knees Magui comes int o the office today for bilateral knee Synvisc One injections. She got relief from her last Synvisc injection until 1 month ago. bilateral knees Patient comes in to the office today for bilateral knee Synvisc One injections. She got relief from her last Synvisc injection until 1 1/2 months ago. bilateral knees Pateint comes in to the office today for bilateral knee Synvisc One injections. Bilat knee Ms. Baker com es in today for follow up of bilateral knee pain related to osteoarthritis. She received Synvisc One injections on 12/17/2013 which was helpful until the past month. She would like to proceed with Synvisc One injections again. Functional Status Date Functional Assessmen t No Information Instructions Date Instruction Additional Infor mation Relative rest Take new medication as prescribe d Assessments Type Assessment Date assessment Bilateral primary osteoarthritis of knee Patient Care Teams Name Effective Dates (start - stop) Status Members No Information
== END 2024-09-10 07:33 | disposition home or self-care (01) ==
LOC: CHSIMG 07:36
PROVIDERS: PCP Nurse Practitioner Family; Visit Provider Nurse Practitioner Family
DX: Z12.31 Encounter for screening mammogram for malignant neoplasm of breast (principal); Z78.0 Asymptomatic menopausal state
CPT/HCPCS: 77063; 77067; 77080

== ENCOUNTER 2024-12-05 11:20 | Outpatient (CLI) | payer MEDICARE, SELFPAY ==
--- NOTE | ~2024-12-05 | CT_ITS ---
EXAMINATION: CT diagnostic chest w con DATE: 12/05/2024 14:54 INDICATION: Bilateral airspace disease and nodule seen on prior chest x-ray. History of melanoma. TECHNIQUE: Computed tomography (CT) of the chest was performed with 75 cc MultiHance intravenous cont rast. The dose-length product was 135.40 mGy-cm. Automated exposure control and iterative reconstruct ion technique were employed. COMPARISON: Chest x-ray dated 12/06/2019 FINDINGS: There are patchy areas of groundglass opacification and consolidation with air bronchograms , consistent with multifocal bilateral pneumonia. There are is a nodule measuring 1.4 cm in the right middle lobe peripheral air bronchogram. This is most likely infectious, although metastatic disease is not excluded. Recommend follow-up chest CT in 1-2 months following appropriate therapy. There is a 1.9 cm nodule in the left upper lobe. No pneumothorax. There is mild mediastinal and hilar lymphaden opathy which may be reactive for metastatic disease. No significant pleural or pericardial effusion. Heart size normal. Mild atherosclerosis of the aorta and coronary arteries. There is a right renal cy st. Mild thoracic lymphadenopathy. No focal lytic or blastic lesions are seen. IMPRESSION: 1. Multifocal pneumonia. Additional areas of discrete nodular consolidation are seen in the right mid dle and left upper lobe which may be infectious or metastatic disease given the clinical history. Rec ommend follow-up CT chest in 1-2 months following appropriate therapy to exclude residual masses. 2: Mild mediastinal and hilar lymphadenopathy which may be reactive or metastatic. Reviewed, dictated and finalized at location A. IMPRESSION: 1. Multifocal pneumonia. Additional areas of discrete nodular consolidation are seen in the right middle and left upper lobe which may be infectious or metast atic disease given the clinical history. Recommend follow-up CT chest in 1-2 mo nths following appropriate therapy to exclude residual masses. 2: Mild mediastinal and hilar lymphadenopathy which may be reactive or metastat ic.
--- NOTE | ~2024-12-05 | XR_ITS ---
XR chest 2V 12/05/2024 11:39 Indication: Melanoma. Procedure: 2 view chest Comparison: Chest dated 12/28/2021 Findings: There are multifocal areas of consolidation with some areas of nodularity. Abnormalities ar e seen in the left upper and right mid and throughout the right lung. No pleural effusion. Heart size normal. No pneumothorax. Impression: 1: Patchy bilateral pulmonary nodules and airspace disease, suspicious for metastatic disease and/or pneumonia. Recommend correlation with contrast-enhanced CT chest. Reviewed, dictated and finalized at location A. Impression: 1: Patchy bilateral pulmonary nodules and airspace disease, suspicious for meta static disease and/or pneumonia. Recommend correlation with contrast-enhanced C T chest.
--- OUTSIDE RECORDS SUMMARY | 2024-12-05 12:43 | XMS_ITS | Encounter Summary ---
Author Organization [facility] Address [address] [place] [address] Phone Care Team Providers Care Fifth Grade Teacher Name Role Phone Becky Conroy NP Primary Care Provider [phone] Jose Chairez MD PhD Unavailable [phone] Evelin Lofton MD Unavailable [phone] Encounter Details Date Type Department Care Team [...] on file Legal Sex Female 1:54 AM [employer] Gender Identity Not on file Sexual Orientation [...] on filedocumented in this encounter Care Teams Fifth Grade Teacher Relationship Specialty Start Date End Date Becky Conroy [employer] [address] [place] [address] PCP - General Nurse Practitioner 07/06/23 Jose Chairez MD PhD [address] [facility] [address] [place], [place] [id number] Medical Oncologist/Advertising Production Manager Medical Oncology 08/14/23 Evelin Lofton MD [address] [place] [address] Referring Physician Cardiovascular Disease 08/14/23 documented as of this encounter
--- OUTSIDE RECORDS SUMMARY | 2024-12-05 12:43 | XMS_ITS | Continuity of Care Document ---
Author Organization [facility] Address [address] [place] [address] Phone Care Team Providers Care Nondestructive Tester Name Role Phone Cori Mcginnis Unavailable Unavailable [...] tablet - Active Procedures Procedure Date Synvisc One Asp/inject major joint or bursa [...] X-ray exam of both knees, standing Office/outpatient visit,kriss joshi 2010 Drain/inject major jointor bursa 2010 Depo Medrol Methylprednisolone 40 MG inj Advance Directives Directive Yes / No Effective Date File Name No Information Encounters Encounter Description Practice Location Reason(s) For Visit Diagnoses Date Provider Providers Copied on Encounter [facility], [address], [id number], [place] tel:[phone] [facility] bilateral knees (chief complaint) Bilateral primary osteoarthritis of knee 4 Carrol Persaud. [address], [id number], [place]. tel:[phone] Referring Provider: Cori Waite, [address] [address], [place], [address] . tel:[phone] [facility], [address], [id number], [place] tel:[phone] [facility] Unilateral primary osteoarthritis , left kneeUnilateral primary osteoarthritis , right knee 4 Carrol Persaud. [address], [id number], [place]. tel:[phone] [facility], [address], [id number], [place] tel:[phone] [facility] janet knee (chief complaint) Bilateral primary osteoarthritis of knee 4 Carrol Persaud. [address] [facility], [facility] [address], [place], [place], [id number], [place]. tel:[phone] Referring Provider: Cori Waite, [address] [address], [place], [address] . tel:[phone] [facility], [address] [address], [place], [place], [id number], [place] tel:[phone] [facility] Unilateral primary osteoarthritis , left kneeUnilateral primary osteoarthritis , right knee 4 Carrol Persaud. [address] [facility], [address] [address], [place], [place], [id number], [place]. tel:[phone] [facility], [address] [place] [address], [place], [place], [id number], [place] tel:[phone] [facility] janet knee (chief complaint) Bilateral primary osteoarthritis of knee 4 Carrol Persaud. [address] [place] [address], [address] [address], [place], [place], [id number], [place]. tel:[phone] Referring Provider: Cori Waite, [address] [place] [address], [place], [address] . tel:[phone] Office/outpa tient visit,est, mod [facility], [address] [place] [address], [place], [place], [id number], [place] tel:[phone] [facility] Hammer toe right foot (chief complaint) Pain in right footOther acquired hammer toe of right foot Sep-0 3 Guiller Matt. [address] [facility], [address] [address], [place], [place], [address], [place]. tel:[phone] Referring Provider: Matt Waite, [address] [address], [place], [address] . tel:[phone] [facility], [address] [place] [address], [place], [place], [id number], [place] tel:[phone] [facility] janet knee (chief complaint) Bilateral primary osteoarthritis of knee 3 Dinan Cori. [address] [facility], [address] [address], [place], [place], [id number], [place]. tel:[phone] Referring Provider: Cori Waite, [address] [address], [place], [address] . tel:[phone] [facility], [address] [address], [place], [place], [id number], [place] tel:[phone] [facility] bilateral knees (chief complaint) Bilateral primary osteoarthritis of knee 3 Dinan Cori. [address] [address], [place], [place], [address], [place]. tel:[phone] Referring Provider: Cori Waite, [address] [place] [address], [place], [address] . tel:[phone] [facility], [address], [id number], [place] tel:[phone] [facility] Unilateral primary osteoarthritis , left kneeUnilateral primary osteoarthritis , right knee 3 Dinan Cori. [address] [facility], [address] [address], [place], [place], [id number], [place]. tel:[phone] [facility], [address], [id number], [place] tel:[phone] [facility] bilateral knees (chief complaint) Bilateral primary osteoarthritis of knee 0 3 Dinan Cori. [address], [id number], [place]. tel:[phone] Referring Provider: Cori Waite, [address] [address], [place], [address] . tel:[phone] [facility], [address], [id number], [place] tel:[phone] [facility] bilateral knees (chief complaint) Bilateral primary osteoarthritis of knee 2 Carrol Persaud. [facility] [address], [place], [place], [id number], [place]. tel:[phone] Referring Provider: Cori Waite, [address] [place] [address], [place], [address] . tel:[phone] [facility], [address] [place] [address], [id number], [place] tel:[phone] [facility] Bilateral primary osteoarthritis of knee 2 Carrol Persaud. [address] [place] [address], [place], [place], [id number], [place]. tel:[phone] Office/outpa tient visit,est, [facility], [address] [place] [address], [id number], [place] tel:[phone] [facility] bilat knees (chief complaint) Unilateral primary osteoarthritis , left kneeUnilateral primary osteoarthritis , right knee 2 Steffany Villagomez. [address] [place] [address], [place], [place], [id number], [place]. tel:[phone] Referring Provider: Hernando Cerda, [address] [place] [address], [place], [address] . tel:[phone] [facility], [address] [place] [address], [id number], [place] tel:[phone] [facility] Bilateral primary osteoarthritis of knee 2 Carrol Persaud. [address] [place] [address], [id number], [place]. tel:[phone] [facility], [address] [place] [address], [id number], [place] tel:[phone] [facility] janet knee (chief complaint) Bilateral primary osteoarthritis of knee 1 Dinan Cori. [address] [facility], [facility] [address], [place], [place], [id number], [place]. tel:[phone] Referring Provider: Cori Waite, [address] [facility] [address] [facility], [place], [address] . tel:[phone] [facility], [address] [address], [place], [place], [id number], [place] tel:[phone] [facility] Bilateral primary osteoarthritis of knee 1 Dinan Cori. [address] [facility], [address] [address], [place], [place], [address], [place]. tel:[phone] [facility], [address] [address], [place], [place], [address], [place] tel:[phone] [facility] janet knee (chief complaint) Bilateral primary osteoarthritis of knee 1 Dinan Cori. [address] [facility], [address] [address], [place], [place], [id number], [place]. tel:[phone] Referring Provider: Cori Waite, [address] [place] [address], [place], [address] . tel:[phone] [facility], [address], [id number], [place] tel:[phone] [facility] Bilateral primary osteoarthritis of knee 1 Dinan Cori. [address] [facility], [address] [address], [place], [place], [address], [place]. tel:[phone] [facility], [address], [id number], [place] tel:[phone] [facility] bilateral knees (chief complaint) Bilateral primary osteoarthritis of knee 0 Dinan Cori. [address] [facility], [address], [id number], [place]. tel:[phone] Referring Provider: Hernando Cerda, [address] [facility] [address], [place], [address] . tel:[phone] [facility], [address] [facility] [address], [place], [place], [id number], [place] tel:[phone] [facility] Bilateral primary osteoarthritis of knee Apr- 7-202 0 Dinan Cori. [address] [facility], [address], [place], [place], [address], [place]. tel:[phone] [facility], [address] [address], [place], [place], [address], [place] tel:[phone] [facility] bilat knees (chief complaint) Bilateral primary osteoarthritis of knee 9 Dinan Cori. [address] [facility], [address] [address], [place], [place], [address], [place]. tel:[phone] Referring Provider: Hernando Cerda, [address] [facility] [address] [facility], [place], [address] . tel:[phone] [facility], [address] [place] [address], [place], [place], [id number], [place] tel:[phone] [facility] Unilateral primary osteoarthritis , right kneeUnilateral primary osteoarthritis , left knee 9 Dinan Cori. [address] [facility], [address] [address], [place], [place], [id number], [place]. tel:[phone] [facility], [address] [address], [place], [place], [address], [place] tel:[phone] [facility] Kneepain (chief complaint) Bilateral primary osteoarthritis of knee 9 Dinan Cori. [address] [place] [address], [address] [address], [place], [place], [address], [place]. tel:[phone] Referring Provider: Cori Waite, [address] [place] [address] Suite [facility], [place], [address] . tel:[phone] [facility], [address] [address], [place], [place], [address], [place] tel:[phone] [facility] Bilateral primary osteoarthritis of knee 8- 9 Dinan Cori. [address] [facility], [address] [address], [place], [place], [address], [place]. tel:[phone] [facility], [address] [address], [place], [place], [address], [place] tel:[phone] [facility] bilateral knees (chief complaint) Bilateral primary osteoarthritis of knee 0 2-201 8 Dinan Cori. [address] [facility], [address] [address], [place], [place], [id number], [place]. tel:[phone] Referring Provider: Cori Waite, [facility] [address], [place], [address] . tel:[phone] [facility], [address] [address], [place], [place], [address], [place] tel:[phone] [facility] Bilateral primary osteoarthritis of knee 2 8 Dinan Cori. [address] [facility], [address] [address], [place], [place], [address], [place]. tel:[phone] [facility], [address] [address], [place], [place], [address], [place] tel:[phone] [facility] bilateral knees (chief complaint) Bilateral primary osteoarthritis of knee 2 5-201 7 Dinan Cori. [address] [facility], [address], [place], [place], [address], [place]. tel:[phone] Referring Provider: Cori Waite, [address] [facility] [address] [facility], [place], [address] . tel:[phone] [facility], [address], [id number], [place] tel:[phone] [facility] Bilateral primary osteoarthritis of knee Jun-0 4-201 7 Dinan Cori. [address] [facility], [address] [address], [place], [place], [address], [place]. tel:[phone] [facility], [address] [address], [place], [place], [address], [place] tel:[phone] [facility] bilateral knees (chief complaint) Bilateral primary osteoarthritis of knee 7 Dinan Cori. [address] [facility], [address] [address], [place], [place], [address], [place]. tel:[phone] Referring Provider: Cori Waite, [address] [address], [place], [address] . tel:[phone] [facility], [address], [id number], [place] tel:[phone] [facility] Bilateral primary osteoarthritis of knee 6 Dinan Cori. [address] [facility], [address] [address], [place], [place], [address], [place]. tel:[phone] [facility], [address], [id number], [place] tel:[phone] [facility] bilateral knees (chief complaint) Bilateral primary osteoarthritis of knee Apr-0 6 Dinan Cori. [address], [id number], [place]. tel:[phone] Referring Provider: Cori Waite, [address] [address], [place], [address] . tel:[phone] [facility], [address], [id number], [place] tel:[phone] [facility] Bilateral primary osteoarthritis of knee Feb-2 - 6 Steffany Villagomez. [address], [id number], [place]. tel:[phone] [facility], [address] [address], [place], [place], [address], [place] tel:[phone] [facility] bilateral knees (chief complaint) LOC PRIM OSTEOART-L/LEG 5 Galidevyn Cori. [address] [facility], [address] [address], [place], [place], [address], [place]. tel:[phone] Referring Provider: Cori Waite, [address] [place] [address], [place], [address] . tel:[phone] [facility], [address] [place] [address], [place], [place], [address], [place] tel:[phone] [facility] Osteoarthrosis , localized, primary, involving lower leg 5 Steffany Villagomez. [address] [place] [address], [place], [place], [address], [place]. tel:[phone] [facility], [address] [place] [address], [id number], [place] tel:[phone] [facility] Bilat knee (chief complaint) LOC PRIM OSTEOART-L/LEG 4 Carrol Persaud. [address] [place] [address], [place], [place], [id number], [place]. tel:[phone] Referring Provider: Cori Waite, [address] [place] [address], [place], [address] . tel:[phone] [facility], [address] [place] [address], [id number], [place] tel:[phone] [facility] LOC PRIM OSTEOART-L/LEG 4 Steffany Villagomez. [address] [place] [address], [id number], [place]. tel:[phone] [facility], [address] [place] [address], [id number], [place] tel:[phone] [facility] bilateral knee pain (chief complaint) PAIN IN LIMBLOC PRIM OSTEOART-L/LEG JOINT PAIN-L/LEG Apr-0 8-201 4 Colt Pena. [address] [facility], [address] [address], [place], [place], [address], [place]. tel:[phone] Referring Provider: Becky Verdin, [address] [facility] [address] [facility], [place], [address] . tel:[phone] [facility], [address] [address], [place], [place], [address], [place] tel:[phone] [facility] bilateral knee pain (chief complaint) LOC PRIM OSTEOART-L/LEG Oct-0 3-201 3 No Information [facility], [address] [address], [place], [place], [address], [place] tel:[phone] [facility] LOC PRIM OSTEOART-L/LEG Sep-0 9 3 Willis Ron. [address] [facility], [facility] [address], [place], [place], [address], [place]. tel:[phone] [facility], [address] [address], [place], [place], [address], [place] tel:[phone] [facility] bilateral knee pain (chief complaint) ARTHROPATHY NOS-L/LEG Mar-2 3 No Information Referring Provider: Melvin Gu, [address] [place] [address], [address]. tel:[phone] [facility], [address], [id number], [place] tel:[phone] [facility] LOC PRIM OSTEOART-L/LEG Sep-1 2 No Information Referring Provider: Melvin Gu, [address] [place] [address], [address]. tel:[phone] Office/outpa tient visit,est, low [facility], [address] [address], [place], [place], [address], [place] tel:[phone] [facility] DERANG LAT MENISCUS NOSDERANG MED MENISCUS NECLOC PRIM OSTEOART-L/LEG JOINT PAIN-L/LEG 2 Steffany Villagomez. [address] [facility], [address] [place] [address], [id number], . tel:[phone] Referring Provider: Melvin Gu, [address] [place] [address], [address]. tel:[phone] Office/outpa tient visit,new, mod [facility], [address] [facility] [address] [place] [address], [id number], [place] tel:[phone] [facility] JOINT PAIN-L/LEGLOC PRIM OSTEOART-L/LEG TEAR MED MENISC KNEE-CUR 1 Steffany Villagomez. [address] [facility], [address] [address], [place], [place], [address], . tel:[phone] Referring Provider: Melvin Gu, [address] [place] [address], [address]. tel:[phone] Family History Family Member Type Diagnosis Age [...] Record Payers Payer name Insurance type Covered constitution party ID Ladarius minaya(s) [place] W[place] Part B MB [id number] [employer] Senior Supplemental [id number] Social History Type Description Quantity Date Captured [...] today. She was recently diagnosed with melanoma. Hammer toe right foot janet knee Magui [...] bilateral knee Synvisc One injections. Bilat knee . Olivia com es in today for follow up of bilateral knee pain related to osteoarthritis. She received Synvisc One injections on 12/17/2013 which was helpful until the past month. She would like to proceed with Synvisc One injections again. Functional Status Date Functional Assessmen t No Information Instructions Date Instruction Additional Infor jorge l Take new medication as prescribe d Relative rest Assessments Type Assessment Date assessment Bilateral primary osteoarthritis of knee Patient Care Teams Name Effective Dates (start - stop) Status Members No Information
--- OUTSIDE RECORDS SUMMARY | 2024-12-05 12:43 | XMS_ITS | Encounter Summary ---
Author Organization [facility] Address [address] [place] [address] Care Team Providers Care Pouncer Name Role Phone Cory Castro MD Primary Care Provider Maci Green MD Unavailable [phone] Maci Lofton MD Unavailable [phone] Becky ConroyP Primary Care Provider [phone] Encounter Details Date Type Department Care Team (Late st Contact Info) Description 03/07/2016 Abstract [facility] [address] [place] [address] Maci Lofton MD [address] [facility], [address] [place] [address] Social History Tobacco Use Types Packs/Day Years Used Date Smoking Tobacco: Former Cigarettes Q uit: 1990 Alcohol Use Standard Drinks/Week Comments Yes 0 (1 standard drink = 0.6 oz pur e alcohol) socially Comments Unknown Sex and Gender Information Value Date Recorded Sex Assigned at Not on file Legal Sex Female 10:51 PM CDT Gender Identity Not on file Sexual Orientation Not on file Occupation Industry Job Start Date Job 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 Not on file Not on file Not on file documented as of this encounter Plan of Treatment Upcoming Encounters Date Type Department Care Team (Late st Contact Info) Description 07/15/2025 11:15 AM OFFICE EXECUTIVE [facility] [address] [place] [address] Grace Pedersen MD [address] [place], [place] [id number] documented as of this encounter Procedures Procedure Name Priority Date/Time Associated Diagnosis Comments COMPREHENSIVE METABOLIC PANEL Routine 02/25/2016 LIPID PANEL Routine 02/25/2016 CBC W/DIFF AUTOMATED Routine 02/25/2016 documented in this encounter Results * LIPID PANEL (02/25/2016) CHOLESTEROL 213 HDL 57 TRIGLYCERIDES 137 LDL (CALCULATED) 129 02/25/2016 Cory Castro MD LABORATORY Final Result * CBC W/DIFF AUTOMATED (02/25/2016) WBC 6.7 HGB 14.0 HCT 41.1 PLT 268 02/25/2016 Cory Castro MD LABORATORY Final Result * COMPREHENSIVE METABOLIC PANEL (02/25/2016) SODIUM S/P/B 140 POTASSIUM S/P/B 3.5 CO2 29 CHLORIDE S/P/B 101 GLUCOSE 103 CALCIUM S/P/B 9.9 BUN 21 CREATININE S/P/B 0.7 ALT 20 AST 33 ALBUMIN S/P/B 4.1 3.5 - 5.0 02/25/2016 Cory Castro MD LABORATORY Final Result documented in this encounter Visit Diagnoses Not on filedocumented in this encounter Care Teams Pouncer Relationship Specialty Start Date End Date Cory Castro MD PCP - General SURGERY 03/09/16 02/03/20 Maci Lofton MD [address], [address] [place] [address] PCP - Jen - MSSP Attributed Provider 09/11/15 05/29/19 Becky Conroy FNP [address] [place] [address] PCP - General NURSE PRACTITIONER 02/04/20 Maci Lofton MD CARDIOVASCULAR DISEASE 03/09/16 documented as of this encounter
--- OUTSIDE RECORDS SUMMARY | 2024-12-05 12:43 | XMS_ITS | Encounter Summary ---
Author Organization [facility] Address [address] [place] [address] Care Team Providers Care Lead Quality Technician Name Role Phone Cory Castro MD Primary Care Provider Maci Green MD Unavailable [phone] Maci Lofton MD Unavailable [phone] Becky ConroyP Primary Care Provider [phone] Encounter Details Date Type Department Care Team (Late st Contact Info) Description 12/24/2014 Abstract [facility] [address] [place] [address] Maci Lofton MD [address] [facility], [address] [place] [address] Social History Tobacco Use Types Packs/Day Years Used Date Smoking Tobacco: Former Cigarettes Q uit: 1991 Alcohol Use Standard Drinks/Week Comments Yes 0 (1 standard drink = 0.6 oz pur e alcohol) socially Comments Unknown Sex and Gender Information Value Date Recorded Sex Assigned at Not on file Legal Sex Female 10:51 PM CDT Gender Identity Not on file Sexual Orientation Not on file 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 Industry 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 Not on file Not on file Not on file documented as of this encounter Plan of Treatment Upcoming Encounters Date Type Department Care Team (Late st Contact Info) Description 07/15/2025 11:15 AM SALT WASHER [facility] [address] [place] [address] Grace Pederesn MD [address] [place] [address] documented as of this encounter Visit Diagnoses Not on filedocumented in this encounter Care Teams Lead Quality Technician Relationship Specialty Start Date End Date Cory Castro MD PCP - General SURGERY 03/09/16 02/03/20 Maci Lofton MD [address] [facility] [address] [place] [address] PCP - Jen - MSSP Attributed Provider 09/11/15 05/29/19 Becky Conroy FNP [address] [place], [place] [id number] PCP - General NURSE PRACTITIONER 02/04/20 Maci Lofton MD CARDIOVASCULAR DISEASE 03/09/16 documented as of this encounter
--- OUTSIDE RECORDS SUMMARY | 2024-12-05 12:43 | XMS_ITS | Clinical Summary ---
Author Organization [facility] Address [address] [place] [address] Care Team Providers Care Fruit Vendor Name Role Phone Becky Conroy NP Primary Care Provider [phone] Jose Chairez MD PhD Unavailable [phone] Evelin Lofton MD Unavailable [phone] Allergies No known active allergies Medications clopidogreL (PLAVIX) 75 mg tabletIndications :Myocardial Reinfarction Prevention,Thromb osis Prevention after PCI,1 cardiac stent Take 1 tablet (75 mg total) by mouth every morning 3 Active enalapril (VASOTEC) 10 mg tabletIndications :hypertension Take 1 tablet (10 mg total) by mouth every morning Active omega-3 fatty acids 500 mg capsuleIndication s:supplement Take 1 tablet by mouth every morning 5 Active zinc gluconate 50 mg tabletIndications :supplement Take 1 tablet (50 mg total) by mouth every morning Active esomeprazole DR (NexIUM) 40 mg capsuleIndication s:acid reflux Take 1 capsule (40 mg total) by mouth as needed 8 Active furosemide (LASIX) 20 mg tabletIndications :Edema Take 1 tablet (20 mg total) by mouth as needed Active hydroCHLOROthiazi de (HYDRODIURIL) 25 mg tabletIndications :Edema,hypertensi on Take 1 tablet (25 mg total) by mouth every morning Active metoprolol XL (TOPROL-XL) 50 mg extended release tabletIndications :hypertension Take 1 tablet (50 mg total) by mouth every morning Active potassium chloride ER 10 mEq CR tabletIndications :hypokalemia prevention Take 1 tablet/capsul e (10 mEq total) by mouth every morning Active rosuvastatin (CRESTOR) 10 mg tabletIndications :hyperlipidemia Take 0.5 tablets (5 mg total) by mouth every morning 0.5 tablet Active ergocalciferol, vitamin D2, 10 mcg (400 unit) tabletIndications :Prevention of Vitamin D Deficiency Take 1 tablet by mouth every morning 0 Active meloxicam (MOBIC) 7.5 mg tablet Take 1 tablet (7.5 mg total) by mouth as needed for pain Active mupirocin (BACTROBAN) 2 % ointmentIndicatio ns:Minor Bacterial Skin Infections Apply topically as needed 3 Active multivitamin tabletIndications :Vitamin Deficiency Prevention Take 1 tablet by mouth every morning Active nystatin cream Apply topically 2 (two) times a day 4 Active vibegron (Gemtesa) 75 mg tablet Take 1 each by mouth daily Active triamcinolone (KENALOG) 0.1 % cream APPLY TO AFFECTED AREA TWICE A DAY 80 g 3 4 Active azithromycin (ZITHROMAX) 250 mg tabletIndications :Malignant melanoma of unknown origin (HCC),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),Melanoma of axilla (HCC) Take 1 tablet (250 mg total) by mouth daily for 5 days 5 tablet 5 11/25/19 25 Active Problems Problem Noted Date Diagnosed Date Metastatic malignant melanoma 10/11/2023 Metastatic melanoma 08/31/2023 Pain in right foot 08/24/2023 Benign essential HTN 07/18/2023 Dyslipidemia 07/18/2023 Malignant melanoma of unknown origin 07/18/2023 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 09/28/2016 Atherosclerosis of [place] ronary artery of [place] heart without angina pectoris 03/04/2016 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 Overview (07/18/2023): March 2003 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 Encounters Date Type Department Care Team Description 11/19/2024 11:45 AM CDT Office Visit [facility] Oncology [address] [place] [address] Jose Chairez MD PhD Malignant melanoma of unknown origin (HCC); 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); Melanoma of axilla (HCC) 11/19/2024 11:15 AM CDT Lab [facility] [address] [place] [address] Malignant melanoma of unknown origin (HCC); 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); Melanoma of axilla (HCC) 11/18/2024 8:57 AM CDT - 11/18/2024 11:59 PM CDT Hospital Encounter [facility] [address] [place] [address] Discharge Disposition: Discharge to home or self care 11/18/2024 8:57 AM CDT - 11/18/2024 11:59 PM CDT Hospital Encounter [facility] [address] [place] [address] Malignant melanoma of unknown origin (HCC); 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); Melanoma of axilla (HCC) Discharge Disposition: Discharge to home or self care from Last 3 Months Immunizations Immunization Administration Dates Next Due Influenza, Quad, Adjuvantated, [...] History of hypertension - (A dded by TW Conv) Old myocardial infarction Past m yocardial infarction - (Added by TW Conv) Melanoma (HCC) Motion sickness Hypertension Family History [...] file Legal Sex 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 Gender Identity Not on file Sexual Orientation Not on file Obstetrics History Last Filed Vital Signs Vital Sign Reading Time Taken Comments Blood Pressure 156/75 11/19/2024 12:07 PM CDT Pulse 75 11/19/2024 12:07 PM CDT Temperature 36.4 C (97.5 F) 11/19/2024 12:07 PM CDT Respiratory Rate 16 11/19/2024 12:07 PM CDT Oxygen Saturation 94% 11/19/2024 12:07 PM CDT Inhaled Oxygen Concentration - - Weight 68.5 kg (151 lb 1.6 oz) 11/19/2024 12:07 PM CDT Height 160 cm (5' 3 ) 11/19/2024 12:07 PM CDT Body Mass Index 26.77 11/19/2024 12:07 PM CDT Plan of Treatment Health Maintenance Due Date Last Done Comments Depression Screening 1945 Osteoporosis Screening-Bone Density Scan 1945 DTaP/Tdap/Td Vaccine (1 - Tdap) 1954 Hepatitis B Screening 1961 Well Visit 65+ 2008 Pneumococcal vaccine 65+ (2 of 2 - PCV) 03/11/2019 03/11/2018 Covid-19 Vaccine (2023-2 5 season) 2024 06/24/2022, 01/03/2022, 07/09/2021, Additional history exists Influenza Vaccine (#1) 2024 , 06/22/2021, 03/11/2018 Fall Risk Assessment 11/22/2024 11/23/2023 Zoster Vaccine Completed 02/02/2023, 09/12, 07/04/2015 Medical Devices Implanted Type Area Suppression Crew Leader Device Identifier Shelf Expiration Date Model / Serial / Lot Cardiac Stent X 1 N/A: Heart Procedures Procedure Name Priority Date/Time Associated Diagnosis Comments EGFR Routine 11/19/2024 10:25 AM CDT Malignant melanoma of unknown origin (HCC) 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) DIFFERENTIAL AUTO Routine 11/19/2024 10: 25 AM CDT Malignant melanoma of unknown origin (HCC) 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) COMPREHENSIVE METABOLIC PANEL Routine 11/19/2024 10:25 AM CDT Malignant melanoma of unknown origin (HCC) 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) CBC WITH AUTO DIFFERENTIAL Routine 11/19/2024 10:25 AM CDT Malignant melanoma of unknown origin (HCC) 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) LACTATE DEHYDROGENASE Routine 11/19/2024 10:25 AM CDT Malignant melanoma of unknown origin (HCC) 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 73 m2 Comment: Interpretive Data Reference Interval Normal >/= 90 mL/min/1.73m2 Mildly decreased* 60 - 89 mL/min/1.73m2 Mildly to moderately decreased 45 - 59 mL/min/1.73m2 Moderately to severely decreased 30 - 44 mL/min/1.73m2 Severely decreased 15 - 29 mL/min/1.73m2 Kidney Failure < 15 mL/min/1.73m2 *Relative to young adult level Estimated glomerular [...] interpretive data was last reviewed 2021. Blood 11/19/2024 10:2 5 AM CDT 11/19/2024 10:28 AM CDT us Daryl Glasgow NP LAB BLOOD ORDERABLES Valencia rory Result [facility] Department [place] [address] * (ABNORMAL) Differential, auto (11/19/2024 10:25 AM CDT) Neutrophil abs 5.6 1.5 - 6.5 K/cumm Comment:Testing performed by : [facility], [address] [place] [address] Imm gran abs 0.0 0.0 - 0.1 K/cumm LAWRENCE CARDENAS Lymphocyte abs 2.1 0.8 - 3.3 K/cumm [facility] Monocyte abs 0.9(H) 0.2 - 0.8 K/cumm [facility] Eosinophil abs 0.2 0.0 - 0.5 K/cumm [facility] Basophil abs 0.1 0.0 - 0.1 K/cumm [facility] Neutrophil pct 63.0 % [facility] Comment: Interpretive Data Percent cell count reference ranges are not reported, since discordance with absolute values may lead to misinterpretation of CBC data. Current Interpretive Data was last revised on 2017. Imm gran pct 0.3 % [facility] Comment: Interpretive Data Percent cell count reference ranges are not reported, since discordance with absolute values may lead to misinterpretation of CBC data. Current Interpretive Data was last revised on 2017. Lymphocyte pct 23.2 % [facility] Comment: Interpretive Data Percent cell count reference ranges are not reported, since discordance with absolute values may lead to misinterpretation of CBC data. Current Interpretive Data was last revised on 2017. Monocyte pct 9.9 % [facility] Comment: Interpretive Data Percent cell count reference ranges are not reported, since discordance with absolute values may lead to misinterpretation of CBC data. Current Interpretive Data was last revised on 2017. Eosinophil pct 2.6 % [facility] Comment: Interpretive Data Percent cell count reference ranges are not reported, since discordance with absolute values may lead to misinterpretation of CBC data. Current Interpretive Data was last revised on 2017. Basophil pct 1.0 % [facility] Comment: Interpretive Data Percent cell count reference ranges are not reported, since discordance with absolute values may lead to misinterpretation of CBC data. Current Interpretive Data was last revised on 2017. Blood 11/19/2024 10:2 5 AM CDT 11/19/2024 10:28 AM CDT us Daryl Glasgow NP LAB BLOOD ORDERABLES Valencia valadez Result [facility] Department [place] [address] * Thyroid Function Winn (11/19/2024 10:25 AM CDT) Pathologist [facility] TSH 0.98 0.30 - 4.20 mcIUnit/mL Blood 11/19/2024 10:2 5 AM CDT 11/19/2024 11:51 AM CDT Daryl Glasgow NP LAB BLOOD ORDERABLES Valencia rory Result [facility] Department [place] [address] * CBC with auto differential (11/19/2024 10:25 AM CDT) [facility] WBC 8.9 3.8 - 9.9 K/cumm Comment:Testing performed by : [address] [address] Hgb 13.8 11.9 - 15.5 g/dL [facility] Comment:Testing performed by : [address] [address] Hct 41.2 35.6 - 45.5 % [facility] Comment:Testing performed by : [address] [address] Plt 254 150 - 400 K/cumm [facility] Comment:Testing performed by : [address] [address] MPV 9.6 9.1 - 12.3 fL [facility] RBC 4.80 3.90 - 5.20 M/cumm [facility] MCV 85.8 81.3 - 96.4 fL [facility] MCH 28.8 27.1 - 33.3 pg [facility] MCHC 33.5 32.3 - 35.7 g/dL [facility] RDW CV 13.3 11.1 - 14.9 % [facility] RDW SD 41.6 35.7 - 48.1 fL [facility] NRBC abs 0.00 0.00 - 0.01 K/cumm [facility] Blood 11/19/2024 10:2 5 AM CDT 11/19/2024 10:28 AM CDT Daryl Glasgow NP LAB BLOOD ORDERABLES Valencia l Result Performing Organization Address [facility]/ZIP Co de Phone Number [facility] Department [place] [address] * (ABNORMAL) Lactate dehydrogenase (LD) (11/19/2024 10:25 AM CDT) Lactate dehydrogenase (LDH) 256(H) 100 - 250 Units/L Comment:Testing performed by : [address] [address] Blood 11/19/2024 10:2 5 AM CDT 11/19/2024 10:28 AM CDT Daryl Glasgow NP LAB BLOOD ORDERABLES Valencia l Result Performing Organization Address [facility] de Phone Number [facility] Department [place] [address] * (ABNORMAL) Comprehensive metabolic panel (11/19/2024 10:25 AM CDT) [facility] Sodium 138 135 - 145 mmol/L Comment:Testing performed by : [address] [address] Potassium, pl 3.2(L) 3.3 - 4.9 mmol/L [facility] Chloride 104 97 - 110 mmol/L [facility] CO2 24 22 - 32 mmol/L [facility] Anion gap 10 2 - 15 mmol/L [facility] BUN 21 6 - 25 mg/dL [facility] Creatinine 0.70 0.60 - 1.10 mg/dL [facility] Glucose 104 70 - 199 mg/dL [facility] Comment: Interpretive Data Fasting glucose >/= 126 mg/dl is diagnostic for diabetes. Fasting is defined as no caloric intake [...] Calcium 9.8 8.5 - 10.3 mg/dL [facility] Bilirubin, total 0.4 0.1 - 1.2 mg/dL [facility] Protein, pl 7.5 6.5 - 8.5 g/dL [facility] Albumin 4.1 3.5 - 5.0 g/dL [facility] Alk phos 51 40 - 130 Units/L [facility] ALT 13 7 - 45 Units/L [facility] AST 27 10 - 45 Units/L [facility] Blood 11/19/2024 10:2 5 AM CDT 11/19/2024 10:28 AM CDT Daryl Glasgow NP LAB BLOOD ORDERABLES Valencia l Result [facility] Department [place] [address] * PET/CT FDG Skull to Thigh (11/18/2024 10:51 AM CDT) Anatomical Region Laterality Modality N/A Positron Emissio n Tomography (PET) 11/18/2024 1:19 PM CDT Impressions 11/18/2024 1:21 PM CDT 1. No PET/CT evidence of residual/recurrent or metastatic disease. 2. Multifocal areas of consolidative and groundglass opacities are present throughout the lungs, progressed compared to PET/CT 08/26/2024 and favored to represent multifocal infectious pneumonia, less likely inflammatory pneumonitis. Correlation with symptoms is recommended. 3. Redemonstrated, minimally hypermetabolic right middle lobe pulmonary nodule, unchanged dating back to 07/31/2023. Dictated by: Gela Bloom MD, MPH The radiology attending physician has personally reviewed this study, and had reviewed and/or edited this written report and agrees with it. Electronically signed by: Dc Boles M.D. Narrative 11/18/2024 1:21 PM CDT EXAMINATION: TUMOR FDG-PET/CT IMAGING DATE OF STUDY: 11/18/2024 SCANNER: [facility] RADIOPHARMACEUTICAL: 15.5 mCi F-18 Fluorodeoxyglucose (FDG) i.v. Injection site: Right hand HISTORY: 79-year-old female with a metastatic melanoma involving the left axilla and an indeterminate 1.2 cm right middle lobe pulmonary nodule. Status post neoadjuvant immunotherapy and left axillary lymph node dissection (10/11/2023), which was significant for no viable tumor as well as adjuvant immunotherapy. The study is requested for restaging after completion of therapy. Subsequent treatment strategy. TECHNIQUE: The patient's fasting blood glucose level, measured by glucometer before injection of FDG, was 94 mg/dL. After intravenous administration of FDG, noncontrast CT images were obtained for attenuation correction and for fusion with emission PET images to allow for anatomical localization of PET findings. Emission PET images were then obtained. The study was interpreted on the [employer] workstation. The mean liver SUV (reported for supplier quality specialist purposes) is 2.7. The total scanned area was skull vertex to proximal thighs. Images of the body were obtained starting 59 minutes after injection of tracer. All reported SUVs are maximum SUVs, unless otherwise specified. COMPARISON: PET/CT 08/26/2024 DESCRIPTORS OF LESION FDG AVIDITY: Minimal: <= blood pool Mild: > blood pool and <= liver Moderate: > liver and <= 2x SUVmax liver Moderate to marked: >2x SUVmax liver and <= 3x SUVmax liver Marked: > 3x SUVmax liver FINDINGS: Multifocal areas of consolidative and groundglass opacities are noted throughout the lungs, progressed compared to PET/CT 08/26/2024 and favored to represent an infectious or inflammatory pneumonia. There is left breast skin thickening with minimal FDG avidity and a maximum SUV of 3.3 (152/412). Unchanged indeterminate 1.3 cm right middle lobe pulmonary nodule with minimal FDG avidity. FDG uptake is noted along the anterior C1 arch, right temporomandibular joint, right shoulder joint, bilateral knees (left greater than right) joints and lower lumbar spinal facets, likely degenerative. Additional CT findings: Left maxillary sinus mucous retention cyst. Multiple dental restorations are present. Calcified mediastinal and hilar lymph nodes are present, likely representing sequelae of old granulomatous disease. Coronary artery calcifications. Atherosclerotic calcifications of the aortic valve and the thoracic aorta. Cholecystectomy. Right upper pole renal cyst. Hysterectomy. Postsurgical changes of bowel resection and in the anterior abdominal cavity. Calcifications of the abdominal aorta and its branching vessels. Small fat-containing umbilical hernia. Scattered calcified pelvic phleboliths. Procedure Note Dc Boles MD - 11/18/2024 EXAMINATION: TUMOR FDG-PET/CT IMAGING DATE OF STUDY: 11/18/2024 SCANNER: [facility] RADIOPHARMACEUTICAL: 15.5 mCi F-18 Fluorodeoxyglucose (FDG) i.v. Injection site: Right hand HISTORY: 79-year-old female with a metastatic melanoma involving the left axilla and an indeterminate 1.2 cm right middle lobe pulmonary nodule. Status post neoadjuvant immunotherapy and left axillary lymph node dissection (10/11/2023), which was significant for no viable tumor as well as adjuvant immunotherapy. The study is requested for restaging after completion of therapy. Subsequent treatment strategy. TECHNIQUE: The patient's fasting blood glucose level, measured by glucometer before injection of FDG, was 94 mg/dL. After intravenous administration of FDG, noncontrast CT images were obtained for attenuation correction and for fusion with emission PET images to allow for anatomical localization of PET findings. Emission PET images were then obtained. The study was interpreted on the [employer] workstation. The mean liver SUV (reported for supplier quality specialist purposes) is 2.7. The total scanned area was skull vertex to proximal thighs. Images of the body were obtained starting 59 minutes after injection of tracer. All reported SUVs are maximum SUVs, unless otherwise specified. COMPARISON: PET/CT 08/26/2024 DESCRIPTORS OF LESION FDG AVIDITY: Minimal: <= blood pool Mild: > blood pool and <= liver Moderate: > liver and <= 2x SUVmax liver Moderate to marked: >2x SUVmax liver and <= 3x SUVmax liver Marked: > 3x SUVmax liver FINDINGS: Multifocal areas of consolidative and groundglass opacities are noted throughout the lungs, progressed compared to PET/CT 08/26/2024 and favored to represent an infectious or inflammatory pneumonia. There is left breast skin thickening with minimal FDG avidity and a maximum SUV of 3.3 (152/412). Unchanged indeterminate 1.3 cm right middle lobe pulmonary nodule with minimal FDG avidity. FDG uptake is noted along the anterior C1 arch, right temporomandibular joint, right shoulder joint, bilateral knees (left greater than right) joints and lower lumbar spinal facets, likely degenerative. Additional CT findings: Left maxillary sinus mucous retention cyst. Multiple dental restorations are present. Calcified mediastinal and hilar lymph nodes are present, likely representing sequelae of old granulomatous disease. Coronary artery calcifications. Atherosclerotic calcifications of the aortic valve and the thoracic aorta. Cholecystectomy. Right upper pole renal cyst. Hysterectomy. Postsurgical changes of bowel resection and in the anterior abdominal cavity. Calcifications of the abdominal aorta and its branching vessels. Small fat-containing umbilical hernia. Scattered calcified pelvic phleboliths. IMPRESSION: 1. No PET/CT evidence of residual/recurrent or metastatic disease. 2. Multifocal areas of consolidative and groundglass opacities are present throughout the lungs, progressed compared to PET/CT 08/26/2024 and favored to represent multifocal infectious pneumonia, less likely inflammatory pneumonitis. Correlation with symptoms is recommended. 3. Redemonstrated, minimally hypermetabolic right middle lobe pulmonary nodule, unchanged dating back to 07/31/2023. Dictated by: Gela Bloom MD, MPH The radiology attending physician has personally reviewed this study, and had reviewed and/or edited this written report and agrees with it. Electronically signed by: Dc Boles M.D. Daryl Glasgow NP IMG PET PROCEDURES Final Result from Last 3 Months Insurance MEDICARE [employer] SENIOR SUPPLEMENT MEDICARE [employer] SENIOR SUPPLEMENT Advance Directives For more information, please contact: [phone] Documents on File Type Date Recorded Patient Water Aerobics Instructor Expl anation ADVANCE DIRECTIVE 10/11/2023 6:33 AM [...] 10:59 AM 10/12/2023 4:16 PM Care Teams Fruit Vendor Relationship Specialty Start Date End Date Becky Conroy, CORPORATE SALES TRAINER [address] [place] [address] PCP - General Nurse Practitioner 07/06/23 Jose Chairez MD PhD [id number] [facility] [address] [place], [place] [id number] Medical Oncologist/[employer] [employer] Medical Oncology 08/14/23 Evelin Lotfon MD [address] [place] [address] Referring Physician Cardiovascular Disease 08/14/23
--- OUTSIDE RECORDS SUMMARY | 2024-12-05 12:43 | XMS_ITS ---
Author Organization [facility] Address [address] [place] [address] Care Team Providers Care Storeroom Keeper Name Role Phone Becky Conroy NP Primary Care Provider [phone] Jose Chairez MD PhD Unavailable [phone] Evelin Lofton MD Unavailable [phone] Active Problems Problem Noted Date Diagnosed Date Metastatic malignant melanoma 10/11/2023 Metastatic melanoma 08/31/2023 Pain in right foot 08/24/2023 Benign essential HTN 07/18/2023 Dyslipidemia 07/18/2023 Malignant melanoma of unknown origin 07/18/2023 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 09/28/2016 Atherosclerosis of [place] co ronary artery of [place] heart without angina pectoris 03/04/2016 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 Overview (07/18/2023): March 2003 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 Past Treatment and Therapy Plans Oncology Chemotherapy Treatment Plan Name Start Date Discontinue Date Treatment Medications Discontinue Reason Plan Provider Cycles Pembrolizumab 21 Day Cycles 08/08/20 23 08/21/2024 pembrolizumab (KEYTRUDA)pembr olizumab (KEYTRUDA) IVPB in 100 mL Therapy Complete Jose Chairez MD PhD 18 of 18 cycles started Lifetime Dose Tracking * Chemical Lifetime Dose Automatic Entry Manual Entr y Fluoro Time 2.4 minutes 2.4 minutes 0 minutes Air kerma at the reference point (Ka,r) 3 mGy 3 mGy 0 mGy
--- OUTSIDE RECORDS SUMMARY | 2024-12-05 12:43 | XMS_ITS | Referral Summary ---
Author Organization [facility] Address [address] [place] [address] Care Team Providers Care Maintenance Mechanic Engine Name Role Phone Becky Conroy NP Primary Care Provider [phone] Jose Chairez MD PhD Unavailable [phone]- [phone] Evelin Lofton MD Unavailable [phone] Encounters Date Type Department Care Team Description 11/19/2024 11:45 AM CDT Office Visit 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); Melanoma of axilla (HCC) 11/18/2024 8:57 AM CDT - 11/18/2024 11:59 PM CDT Hospital Encounter [facility] [address] [place] [address] Discharge Disposition: Discharge to home or self care 11/18/2024 8:57 AM CDT - 11/18/2024 11:59 PM CDT Hospital Encounter [facility] [address] [place] [address] Malignant melanoma of unknown origin (HCC); 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); Melanoma of axilla (HCC) Discharge Disposition: Discharge to home or self care from Last 3 Months Allergies No known [...] for 5 days 5 tablet 5 11/25/19 Active Problems Problem Noted Date Diagnosed Date Metastatic malignant melanoma 10/11/2023 Metastatic melanoma 08/31/2023 Pain in right foot 08/24/2023 Benign essential HTN 07/18/2023 Dyslipidemia 07/18/2023 Malignant melanoma of unknown origin 07/18/2023 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 09/28/2016 Atherosclerosis of [place] ronary artery of [place] heart without angina pectoris 03/04/2016 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 Overview (07/18/2023): March 2003 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 The CKD-EPI equation should not be used for patients with unstable renal function and has not been validated in children and those over 70. Current interpretive data was last reviewed 2021. Blood 11/19/2024 10:2 5 AM CDT 11/19/2024 10:28 AM CDT us Daryl Glasgow NP LAB BLOOD ORDERABLES Valencia rory Result [facility] Department [place] [address] * (ABNORMAL) Differential, auto (11/19/2024 10:25 AM CDT) Neutrophil abs 5.6 1.5 - 6.5 K/cumm Comment:Testing performed by : [facility], [address] [place] [address] Imm gran abs 0.0 0.0 - 0.1 K/cumm [facility] Lymphocyte abs 2.1 0.8 - 3.3 K/cumm [facility] Monocyte abs 0.9(H) 0.2 - 0.8 K/cumm [facility] Eosinophil abs 0.2 0.0 - 0.5 K/cumm [facility] Basophil abs 0.1 0.0 - 0.1 K/cumm [facility] Neutrophil pct 63.0 % [facility] Comment: Interpretive Data Percent cell count reference ranges are not reported, since discordance with absolute values may lead to misinterpretation of CBC data. Current Interpretive Data was last revised on 2017. Imm gran pct 0.3 % [facility] Comment: Interpretive Data Percent cell count reference ranges are not reported, since discordance with absolute values may lead to misinterpretation of CBC data. Current Interpretive Data was last revised on 2017. Lymphocyte pct 23.2 % [facility] Comment: Interpretive Data Percent cell count reference ranges are not reported, since discordance with absolute values may lead to misinterpretation of CBC data. Current Interpretive Data was last revised on 2017. Monocyte pct 9.9 % [facility] Comment: Interpretive Data Percent cell count reference ranges are not reported, since discordance with absolute values may lead to misinterpretation of CBC data. Current Interpretive Data was last revised on 2017. Eosinophil pct 2.6 % [facility] Comment: Interpretive Data Percent cell count reference ranges are not reported, since discordance with absolute values may lead to misinterpretation of CBC data. Current Interpretive Data was last revised on 2017. Basophil pct 1.0 % [facility] Comment: Interpretive Data Percent cell count reference ranges are not reported, since discordance with absolute values may lead to misinterpretation of CBC data. Current Interpretive Data was last revised on 2017. Blood 11/19/2024 10:2 5 AM CDT 11/19/2024 10:28 AM CDT Daryl Glasgow NP LAB BLOOD ORDERABLES Valencia l Result Performing Organization Address City/[facility] Co de Phone Number [facility] [place] [address] * Thyroid Function [place] (11/19/2024 10:25 AM CDT) [facility] TSH 0.98 0.30 - 4.20 mcIUnit/mL Blood 11/19/2024 10:2 5 AM CDT 11/19/2024 11:51 AM CDT Daryl Glasgow NP LAB BLOOD ORDERABLES Valecnia l Result Performing Organization Address [facility] de Phone Number [facility] [place] [address] * CBC with auto differential (11/19/2024 10:25 AM CDT) [facility] WBC 8.9 3.8 - 9.9 K/cumm Comment:Testing performed by : [address] [address] Hgb 13.8 11.9 - 15.5 g/dL [facility] Comment:Testing performed by : [address] [address] Hct 41.2 35.6 - 45.5 % [facility] Comment:Testing performed by : [address] [address] Plt 254 150 - 400 K/cumm [facility] Comment:Testing performed by : [address] [address] MPV 9.6 9.1 - 12.3 fL [facility] RBC 4.80 3.90 - 5.20 M/cumm [facility] MCV 85.8 81.3 - 96.4 fL [facility] MCH 28.8 27.1 - 33.3 pg [facility] MCHC 33.5 32.3 - 35.7 g/dL [facility] RDW CV 13.3 11.1 - 14.9 % [facility] RDW SD 41.6 35.7 - 48.1 fL [facility] NRBC abs 0.00 0.00 - 0.01 K/cumm [facility] Blood 11/19/2024 10:2 5 AM CDT 11/19/2024 10:28 AM CDT Daryl Glasgow NP LAB BLOOD ORDERABLES Valencia l Result Performing Organization Address City/[facility] Co de Phone Number [facility] [place] [address] * (ABNORMAL) Lactate dehydrogenase (LD) (11/19/2024 10:25 AM CDT) [facility] Lactate dehydrogenase (LDH) 256(H) 100 - 250 Units/L Comment:Testing performed by : [address] [address] Blood 11/19/2024 10:2 5 AM CDT 11/19/2024 10:28 AM CDT Daryl Glasgow NP LAB BLOOD ORDERABLES Valencia l Result Performing Organization Address [facility] Co de Phone Number [facility] Department [place] [address] * (ABNORMAL) Comprehensive metabolic panel (11/19/2024 10:25 AM CDT) [facility] Sodium 138 135 - 145 mmol/L Comment:Testing performed by : [address] [address] Potassium, pl 3.2(L) 3.3 - 4.9 mmol/L [facility] Chloride 104 97 - 110 mmol/L [facility] CO2 24 22 - 32 mmol/L [facility] Anion gap 10 2 - 15 mmol/L [facility] BUN 21 6 - 25 mg/dL [facility] Creatinine 0.70 0.60 - 1.10 mg/dL [facility] Glucose 104 70 - 199 mg/dL [facility] Comment: Interpretive Data Fasting glucose >/= 126 [...] 2022. Calcium 9.8 8.5 - 10.3 mg/dL [facility] Bilirubin, total 0.4 0.1 - 1.2 mg/dL [facility] Protein, pl 7.5 6.5 - 8.5 g/dL [facility] Albumin 4.1 3.5 - 5.0 g/dL [facility] Alk phos 51 40 - 130 Units/L [facility] ALT 13 7 - 45 Units/L [facility] AST 27 10 - 45 Units/L [facility] Blood 11/19/2024 10:2 5 AM CDT 11/19/2024 10:28 AM CDT Daryl Glasgow NP LAB BLOOD ORDERABLES Valencia l Result [facility] Department [place] [address] * PET/CT FDG Skull to Thigh (11/18/2024 [...] FDG-PET/CT IMAGING DATE OF STUDY: 11/18/2024 SCANNER: [facility] RADIOPHARMACEUTICAL: 15.5 mCi F-18 Fluorodeoxyglucose (FDG) i.v. [...] obtained. The study was interpreted on the Fetchnotes workstation. The mean liver SUV (reported for quality assurance monitor purposes) is 2.7. The total scanned area [...] FDG-PET/CT IMAGING DATE OF STUDY: 11/18/2024 SCANNER: [facility] RADIOPHARMACEUTICAL: 15.5 mCi F-18 Fluorodeoxyglucose (FDG) i.v. [...] obtained. The study was interpreted on the Fetchnotes workstation. The mean liver SUV (reported for quality assurance monitor purposes) is 2.7. 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
--- OUTSIDE RECORDS SUMMARY | 2024-12-05 12:43 | XMS_ITS | Encounter Summary ---
Author Organization [facility] Address [address] [place] [address] Care Team Providers Care Graduate Teaching Associate Name Role Phone Cory Castro MD Primary Care Provider Maci Green MD Unavailable [phone] Maci Lofton MD Unavailable [phone] Becky ConroyP Primary Care Provider [phone] Encounter Details Date Type Department Care Team (Late Contact Info) Description 04/18/2017 Abstract [facility] [address] [place] [address] Maci Lofton MD [address] [facility], [address] [place] [address] Social History Tobacco Use Types Packs/Day Years Used Date Smoking Tobacco: Former Cigarettes Q uit: 1990 Smokeless Tobacco: Never Alcohol Use Standard Drinks/Week Comments Yes 0 (1 standard drink = 0.6 oz pur e alcohol) socially Comments Unknown Sex and Gender Information Value Date Recorded Sex Assigned at Not on file Legal Sex Female 10:51 PM CDT Gender Identity Not on file Sexual Orientation Not on file 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, [facility] [address] [place] [address] PCP - Jen - MSSP Attributed Provider 09/11/15 05/29/19 Becky Conroy, CONSU[place]O [address] [place], [place] [id number] PCP - General NURSE PRACTITIONER 02/04/20 Maci Lofton MD CARDIOVASCULAR DISEASE 03/09/16 documented as of this encounter
--- OUTSIDE RECORDS SUMMARY | 2024-12-05 12:43 | XMS_ITS | Encounter Summary ---
Author Organization [facility] Address [address] [place] [address] Care Team Providers Care Professional Bondsman Name Role Phone Maci Lofton MD Unavailable [phone] Becky Conroy BRIDGE BUILDER Primary Care Provider [phone] Encounter Details Date Type Department Care Team (Late Contact Info) Description 03/10/2023 Abstract [facility] [address] [place] [id number] Abstract, Doc Bfma Social History Tobacco Use Types Packs/Day Years Used Date Smoking Tobacco: Former Cigarettes Q uit: 1990 Smokeless Tobacco: Never Alcohol Use Standard Drinks/Week Comments Yes 0 (1 standard drink = 0.6 oz pur e alcohol) socially PHQ-2 Answer Date Recorded PHQ-2 Score - If the patient scores above 3, please move on to questions 3-9 1 01/21/2021 Comments Unknown Sex and Gender Information Value Date Recorded Sex Assigned at Not on file Legal Sex Female 10:51 PM CDT Gender Identity Not on file Sexual Orientation Not on file 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 Not on file Not on file documented as of this encounter Plan of Treatment Upcoming Encounters Date Type Department Care Team (Late Contact Info) Description 07/15/2025 11:15 AM FOSTER CARE SOCIAL WORKER Office Visit [facility] eld [address] [place] [address] Grace Pedersen MD [address] [place], [place] [address] documented as of this encounter Procedures Procedure Name Priority Date/Time Associated Diagnosis Comments BASIC METABOLIC PANEL Routine 02/27/2023 CBC W/DIFF AUTOMATED Routine 02/27/2023 documented in this encounter Results * CBC W/DIFF AUTOMATED (02/27/2023) WBC 8.6 RBC 4.8 HGB 14.4 HCT 43 MCV 89.6 MCH 30 MCHC 33.5 RDW 12.1 PLT 269 MPV 9.7 NEUTROPHILS % 61 LYMPHOCYTES % 28 MONOCYTES % 7.8 EOSINOPHILS % 2.0 BASOPHILS % 0.8 NRBC % 0.0 IMMATURE GRANS % 0.4 ABS. IMMATURE GRANULOCYTES 0.03 ABS. NEUTROPHILS 5.2 ABS. LYMPHOCYTES 2.4 ABS. MONOCYTES 0.67 ABS. EOSINOPHILS 0.17 ABS. BASOPHILS 0.07 02/27/2023 us Doc Bfma Abstract LABORATORY Final Result * BASIC METABOLIC PANEL (02/27/2023) SODIUM S/P/B 144 POTASSIUM S/P/B 3.3 CO2 27 CHLORIDE S/P/B 105 GLUCOSE 97 mg/dL CALCIUM S/P/B 9.4 BUN 18 CREATININE S/P/B 0.82 0.5 - 1.0 EGFR NON-AFR. AMER. >60 <=90 ANION GAP 12 OSMOLALITY (CALC) 299 BILIRUBIN TOTAL S/P/B 0.6 AST 22 GPT/ALT 31 TOTAL PROTEIN S/P/B 7.2 ALBUMIN (U) 3.9 TRIGLYCERIDES 119 CHOLESTEROL 150 LDL (CALCULATED) 68 HDL 58 ALKALINE PHOSPHATASE (FLUID) 52 02/27/2023 us Doc Bfma Abstract LABORATORY Edited Result - Final documented in this encounter Visit Diagnoses Not on filedocumented in this encounter Additional Health Concerns Assessment Noted Time PHQ-9 Depression Total Score: 2 01/22/20 21 12:37 PM CDT documented as of this encounter Care Teams Professional Bondsman Relationship Specialty Start Date End Date Becky Conroy FNP [address] [place] [address] PCP - General NURSE PRACTITIONER 02/04/20 Maci Lofton MD CARDIOVASCULAR DISEASE 03/09/16 documented as of this encounter
--- OUTSIDE RECORDS SUMMARY | 2024-12-05 12:43 | XMS_ITS | Clinical Summary ---
Author Organization [facility] Address [address] [place] [address] Care Team Providers Care Engineer Station Mainline Name Role Phone Maci Lofton MD Unavailable [phone] Becky Conroy BOOM BOSS Primary Care Provider [phone] Allergies No known active allergies Medications aspirin 81 MG tablet Take 1 tablet (81 mg total) by mouth daily. 0 Active Biotin 2500 MCG Cap Take 2 tablets by mouth daily. 5 Active omega-3 fatty acid 500 MG capsule Take 1 tablet by mouth daily. 5 Active esomeprazole 40 MG capsule Take 1 capsule (40 mg total) by mouth as needed. 8 Active metoprolol succinate ER 50 MG 24 hr tablet Take by mouth daily. 3 Active Ergocalciferol (VITAMIN D2) 400 UNITS Tab Take 1 tablet by mouth daily. 0 Active B Complex-C Tab tablet Take 1 tablet by mouth daily. Active zinc gluconate 50 MG Tab Take 1 tablet (50 mg total) by mouth daily. Active meloxicam 7.5 MG tablet TAKE 1 TABLET BY MOUTH ONCE DAILY NEEDED FOR SHOULDER PAIN. 0 Active enalapril 10 MG tablet Take 1 tablet (10 mg total) by mouth daily. Active hydroCHLOROthi azide 25 MG tablet Take 1 tablet (25 mg total) by mouth every morning. Active furosemide 20 MG tablet Take 1 tablet (20 mg total) by mouth daily as needed. 2 Active potassium chloride CR 10 MEQ Tab CR tablet Take 1 tablet (10 mEq total) by mouth daily. 2 Active clopidogrel (PLAVIX) 75 MG tablet Take 1 tablet (75 mg total) by mouth daily. 3 Active pembrolizumab (KEYTRUDA) 100 MG/4ML injection Inject 8 mLs (200 mg total) into the vein every 21 days. Active rosuvastatin (CRESTOR) 10 MG tablet TAKE 0.5 TABLETS (5 MG TOTAL) BY MOUTH NIGHTLY AT BEDTIME. 45 tablet 3 5 026 Active rosuvastatin (CRESTOR) 10 MG tablet TAKE 0.5 TABLETS (5 MG TOTAL) BY MOUTH NIGHTLY AT BEDTIME. 45 tablet 3 4 025 Discontinued Active Problems Problem Noted Date Diagnosed Date Atherosclerosis of [place] co ronary artery of [place] heart without angina pectoris 03/04/2016 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 Overview (03/04/2016): March 2003 Coronary artery disease Benign essential HTN Dyslipidemia Resolved Problems Problem Noted Date Diagnosed Date Resolved Date Preop cardiovascular exam 06/28/2023 Encounters Date Type Department Care Team Description 11/19/2024 [facility] [address] [place] [address] Scanned, Doc Pccl Image (SCAN) from Last 3 Months Family History Medical History Relation Comments Heart Attack Brother 1 Stent Cardiac Brother 1 Stroke Brother 1 Hypertension Father Stroke Father Hypertension Mother Stroke Mother Heart Attack Sister 1 Stroke Sister 1 Relation Status Comments Brother 1 Alive [place] at age 60 Brother 2 Father (Age 60s) Maternal Grandfather Maternal Grandmother Mother (Age 70s) Paternal Grandfather Paternal Grandmother Sister 1 [place], stroke at ag e 60 Sister 2 Sister 3 Social History Tobacco Use Types Packs/Day Years [...] Industry Job 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 Job 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 Date 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 on file Not on file Not on file Last Filed Vital Signs Vital Sign Reading Time Taken Comments Blood Pressure 128/76 07/15/2024 10:33 AM MULTIPLE NEEDLE STITCHER Pulse 67 07/15/2024 10:33 AM MULTIPLE NEEDLE STITCHER Temperature - - Respiratory Rate 16 07/15/2024 10:33 AM MULTIPLE NEEDLE STITCHER Oxygen Saturation - - Inhaled Oxygen Concentration - - Weight 68.6 kg (151 lb 3.2 oz) 07/15/2024 10:33 AM MULTIPLE NEEDLE STITCHER Height 160 cm (5' 3 ) 07/15/2024 10:33 AM MULTIPLE NEEDLE STITCHER Body Mass Index 26.78 07/15/2024 10:33 AM MULTIPLE NEEDLE STITCHER Plan of Treatment Upcoming Encounters Date Type Department Care Team (Late st Contact Info) Description 07/15/2025 11:15 AM MULTIPLE NEEDLE STITCHER Office Visit [facility] [address] [place] [address] Grace Pedersen MD [address] [place] [address] Health Maintenance Due Date Last Done Comments DTaP, Tdap and Td Vaccines ( 1 - Tdap) 1964 Annual Medicare Wellness Visit 2008 Dexa Scan (General) 2008 RSV Immunization or 60+ Years (1 - 1-dose 75+ series) 2018 Pneumococcal Vaccine: 65+ Years (2 of 2 - PCV) 03/11/2019 03/11/2018 COVID-19 Vaccine (3 - 2023-2 5 season) 2024 10/05/2020, 09/07/2020 Influenza Adult (#1) 2024 03/11/2018 Zoster Vaccines Completed 02/02/2023, 10/04/2022, 07/04/2015 Meningococcal B Vaccine Aged Out No l onger eligible based on patient's age to complete this topic Meningococcal Vaccine Aged Out No curly denia eligible based on patient's age to complete this topic RSV Immunizations Under 20 Months Aged Out No longer eligible b ased on patient's age to complete this topic Insurance MEDICARE MEDICARE AETNA Care Teams Engineer Station Mainline Relationship Specialty Start Date End Date Becky Conroy FNP [address] [place], [place] [id number] PCP - General NURSE PRACTITIONER 02/04/20 Maci Lofton MD CARDIOVASCULAR DISEASE 03/09/16
[2024-12-05 14:16] LABS: Estimated Glomerular Filt Rate 51
== END 2024-12-05 11:21 | disposition home or self-care (01) ==
PROVIDERS: PCP Nurse Practitioner Family; Visit Provider Nurse Practitioner Family
DX: Z01.818 Encounter for other preprocedural examination (principal); J18.8 Other pneumonia, unspecified organism; R91.8 Other nonspecific abnormal finding of lung field; R59.0 Localized enlarged lymph nodes
CPT/HCPCS: 71046; 71260; Q9967

== ENCOUNTER 2025-02-27 06:39 | Outpatient (CLI) | payer MEDICARE, SELFPAY ==
--- OUTSIDE RECORDS SUMMARY | 2025-02-27 06:42 | XMS_ITS ---
Author Organization [facility] Address [address] [place] [address] Care Team Providers Care Personnel Interviewer Name Role Phone Becky Conroy NP Primary Care Provider [phone] Jose Chairez MD PhD Unavailable [phone] Evelin Lofton MD Unavailable [phone] Active Problems Problem Noted Date Diagnosed Date Metastatic malignant melanoma 10/11/2023 Metastatic melanoma 08/31/2023 Pain in right foot 08/24/2023 Benign essential HTN 07/18/2023 Dyslipidemia 07/18/2023 Malignant melanoma of unknown origin 07/18/2023 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 09/28/2016 Atherosclerosis of [place] co ronary artery of [place] heart without angina pectoris 03/04/2016 Old myocardial [...]
--- OUTSIDE RECORDS SUMMARY | 2025-02-27 06:42 | XMS_ITS | Continuity of Care Document ---
Author Organization [facility] Address [address] [place] [address] Phone Care Team Providers Care Meter Installer Name Role Phone Cori Dunaway Unavailable Unavai lable Allergies, Adverse Reactions, Alerts Substance Reaction Status [...] mg tablet - Active Procedures Procedure Date Methyl Prednisolone Acetate 1MG Inj. January Asp/inject major joint or bursa w/o US g uidance Methyl Prednisolone Acetate 1MG Inj. January Asp/inject major joint or bursa w/o US g uidance Office/outpatient visit,est, mod 2024 Synvisc One Asp/inject major joint or bursa w/o US g uidance Synvisc One BMI Documented Above Normal Limit F/U Pl [...] bursa 012 Synvisc One Synvisc One Office/outpatient visit,est, low 2011 Drain/inject major jointor bursa 2011 Depo Medrol Methylprednisolone 40 MG inj X-ray exam of knee, 1 or2 views 012 X-ray exam of both knees, standing Office/outpatient visit,[facility] [place] 2010 Drain/inject major jointor bursa 2010 Depo Medrol Methylprednisolone 40 MG inj Advance Directives Directive Yes / No Effective Date File Name No Information Encounters Encounter Description Practice Location Reason(s) For Visit Diagnoses Date Provider Providers Copied on Encounter Office/outpa tient visit,est, mod [facility], [address], [id number], tel:[phone] [facility] Bilateral knees (chief complaint) Bilateral primary osteoarthritis of knee 5 Carrol Persaud. [address] [place] [address], [address], [id number], [place]. tel:[phone] Referring Provider: Cori Waite, [address] [facility] [address] [place] [address], [address] . tel:[phone] [facility], [address] [place] [address], [id number], [place] tel:[phone] [facility] bilateral knees (chief complaint) Bilateral primary osteoarthritis of knee 4 Carrol Persaud. [address] [facility], [address], [id number], [place]. tel:[phone] Referring Provider: Cori Waite, [address] [facility] [address] [facility], [place], [address] . tel:[phone] [facility], [address] [address], [place], [place], [address], [place] tel:[phone] [facility] Unilateral primary osteoarthritis , left kneeUnilateral primary osteoarthritis , right knee 4 Carrol Persaud. [address] [facility], [place], [place], [id number], [place]. tel:[phone] [facility], [address] [address], [place], [place], [address], [place] tel:[phone] [facility] janet knee (chief complaint) Bilateral primary osteoarthritis of knee 4 Carrol Persaud. [address] [facility], [address] [address], [place], [place], [address], [place]. tel:[phone] Referring Provider: Cori Waite, [address] [facility] [address] [facility], [place], [address] . tel:[phone] [facility], [address] [address], [place], [place], [address], [place] tel:[phone] [facility] Unilateral primary osteoarthritis , left kneeUnilateral primary osteoarthritis , right knee 4 Carrol Persaud. [address] [facility], [address] [address], [place], [place], [address], [place]. tel:[phone] [facility], [address] [address], [place], [place], [address], [place] tel:[phone] [facility] janet knee (chief complaint) Bilateral primary osteoarthritis of knee 4 Carrol Persaud. [address] [facility], [address] [address], [place], [place], [address], [place]. tel:[phone] Referring Provider: Cori Meléndez A, [address] [facility] [address] [facility], [place], [address] . tel:[phone] Office/outpa tient visit,est, mod [facility], [address] [address], [place], [place], [address], [place] tel:[phone] [facility] Hammer toe right foot (chief complaint) Pain in right footOther acquired hammer toe of right foot Sep-0 3 Doser ADAL Gutierrez. [address] [facility], [address] [address], [place], [place], [address], [place]. tel:[phone] Referring Provider: Matt Gracia DPM A, [address] [place] [address], [place], [address] . tel:[phone] [facility], [address] [place] [address], [place], [place], [id number], [place] tel:[phone] [facility] janet knee (chief complaint) Bilateral primary osteoarthritis of knee 3 Carrol Persaud. [address] [place] [address], [place], [place], [address], [place]. tel:[phone] Referring Provider: Cori Meléndez A, [address] [address], [place], [address] . tel:[phone] [facility], [address] [address], [place], [place], [address], [place] tel:[phone] [facility] bilateral knees (chief complaint) Bilateral primary osteoarthritis of knee 3 Carrol Persaud. [address] [place] [address], [place], [place], [address], [place]. tel:[phone] Referring Provider: Cori Meléndez A, [address] [address], [place], [address] . tel:[phone] [facility], [address], [id number], [place] tel:[phone] [facility] Unilateral primary osteoarthritis , left kneeUnilateral primary osteoarthritis , right knee Ravi- 3 Carrol Persaud. [address] [facility], [address] [address], [place], [place], [address], [place]. tel:[phone] [facility], [address] [place] [address], [place], [place], [id number], [place] tel:[phone] [facility] bilateral knees (chief complaint) Bilateral primary osteoarthritis of knee Feb-0 3 Carrol Persaud. [address] [address], [place], [place], [address], [place]. tel:[phone] Referring Provider: Cori Waite, [address] [place] [address], [place], [address] . tel:[phone] [facility], [address] [place] [address], [id number], [place] tel:[phone] [facility] bilateral knees (chief complaint) Bilateral primary osteoarthritis of knee Aug- 2 Carrol Persaud. [facility] [address], [place], [place], [address], [place]. tel:[phone] Referring Provider: Cori Waite, [address] [place] [address], [place], [address] . tel:[phone] [facility], [address], [id number], [place] tel:[phone] [facility] Bilateral primary osteoarthritis of knee Aug-0 2 Carrol Persaud. [address] [place] [address], [place], [place], [id number], [place]. tel:[phone] Office/outpa tient visit,est, mod [facility], [address] [place] [address], [place], [place], [id number], [place] tel:[phone] [facility] bilat knees (chief complaint) Unilateral primary osteoarthritis , left kneeUnilateral primary osteoarthritis , right knee 2 Steffany Villagomez. [address] [facility], [address] [address], [place], [place], [address], [place]. tel:[phone] Referring Provider: Hernando Cerda, [address] [place] [address], [place], [address] . tel:[phone] [facility], [address] [address], [place], [place], [address], [place] tel:[phone] [facility] Bilateral primary osteoarthritis of knee 2 Carrol Persaud. [facility] [address], [place], [place], [address], [place]. tel:[phone] [facility], [address] [place] [address], [place], [place], [address], [place] tel:[phone] [facility] janet knee (chief complaint) Bilateral primary osteoarthritis of knee 1 Carrol Persaud. [address] [place] [address], [place], [place], [address], [place]. tel:[phone] Referring Provider: Cori Waite, [address] [place] [address], [place], [address] . tel:[phone] [facility], [address] [place] [address], [id number], [place] tel:[phone] [facility] Bilateral primary osteoarthritis of knee 1 Carrol Persaud. [address] [place] [address], [address] [address], [place], [place], [address], [place]. tel:[phone] [facility], [address], [id number], [place] tel:[phone] [facility] janet knee (chief complaint) Bilateral primary osteoarthritis of knee Fe 1 Carrol Persaud. [address] [facility], [facility] [address], [place], [place], [address], [place]. tel:[phone] Referring Provider: Cori Waite, [address] [facility] [address] [facility], [place], [address] . tel:[phone] [facility], [address] [address], [place], [place], [address], [place] tel:[phone] [facility] Bilateral primary osteoarthritis of knee 1 Carrol Persaud. [address] [facility], [address] [address], [place], [place], [address], [place]. tel:[phone] [facility], [address] [address], [place], [place], [address], [place] tel:[phone] [facility] bilateral knees (chief complaint) Bilateral primary osteoarthritis of knee 0 Carrol Persaud. [address] [facility], [address] [address], [place], [place], [address], [place]. tel:[phone] Referring Provider: Hernando Cerda, [address] [address], [place], [address] . tel:[phone] [facility], [address], [id number], [place] tel:[phone] [facility] Bilateral primary osteoarthritis of knee 0 Carrol Persaud. [address] [facility], [address] [address], [place], [place], [address], [place]. tel:[phone] [facility], [address] [address], [place], [place], [address], [place] tel:[phone] [facility] bilat knees (chief complaint) Bilateral primary osteoarthritis of knee 1 201 9 Carrol Persaud. [address] [facility], [address] [address], [place], [place], [address], [place]. tel:[phone] Referring Provider: Hernando Cerda, [address] [facility] [address], [place], [address] . tel:[phone] [facility], [address] [facility] [address], [place], [place], [address], [place] tel:[phone] [facility] Unilateral primary osteoarthritis , right kneeUnilateral primary osteoarthritis , left knee 9 Carrol Persaud. [address] [facility], [address], [place], [place], [address], [place]. tel:[phone] [facility], [address] [address], [place], [place], [address], [place] tel:[phone] [facility] Kneepain (chief complaint) Bilateral primary osteoarthritis of knee Fe 9 Carrol Persaud. [address] [facility], [address] [facility], [place], [place], [address], [place]. tel:[phone] Referring Provider: Cori Meléndez A, [address] [facility] [address], [place], [address] . tel:[phone] [facility], [address] [address], [place], [place], [address], [place] tel:[phone] [facility] Bilateral primary osteoarthritis of knee 9 Carrol Persaud. [address] [facility], [address], [place], [place], [address], [place]. tel:[phone] [facility], [address] [facility] [address], [place], [place], [address], [place] tel:[phone] [facility] bilateral knees (chief complaint) Bilateral primary osteoarthritis of knee 2 8 Carrol Persaud. [address] [facility], [address], [place], [place], [address], [place]. tel:[phone] Referring Provider: Cori Meléndez A, [address] [facility] [address], [place], [address] . tel:[phone] [facility], [address] [address], [place], [place], [address], [place] tel:[phone] [facility] Bilateral primary osteoarthritis of knee Nov-2 8 Carrol Persaud. [address] [facility], [address] [address], [place], [place], [address], [place]. tel:[phone] [facility], [address] [address], [place], [place], [address], [place] tel:[phone] [facility] bilateral knees (chief complaint) Bilateral primary osteoarthritis of knee 2 7 Carrol Presaud. [facility] [address], [place], [place], [address], [place]. tel:[phone] Referring Provider: Cori Waite, [address] [address], [place], [address] . tel:[phone] [facility], [address], [id number], [place] tel:[phone] [facility] Bilateral primary osteoarthritis of knee 0 7 Carrol Persaud. [address], [id number], [place]. tel:[phone] [facility], [address], [id number], [place] tel:[phone] [facility] bilateral knees (chief complaint) Bilateral primary osteoarthritis of knee 8- 7 Carrol Persaud. [address] [place] [address], [id number], [place]. tel:[phone] Referring Provider: Cori Waite, [address] [address], [place], [address] . tel:[phone] [facility], [address] [place], [id number], [place] tel:[phone] [facility] Bilateral primary osteoarthritis of knee 6 Carrol Persaud. [address] [facility], [address] [address], [place], [place], [address], [place]. tel:[phone] [facility], [address] [address], [place], [place], [address], [place] tel:[phone] [facility] bilateral knees (chief complaint) Bilateral primary osteoarthritis of knee Dec-0 6 Carrol Persaud. [address] [facility], [address] [address], [place], [place], [address], [place]. tel:[phone] Referring Provider: Cori Waite, [facility] [address], [place], [address] . tel:[phone] [facility], [address] [address], [place], [place], [address], [place] tel:[phone] [facility] Bilateral primary osteoarthritis of knee Fe- 6 Steffany Villagomez. [address] [place] [address], [place], [place], [address], [place]. tel:[phone] [facility], [address] [address], [place], [place], [address], [place] tel:[phone] [facility] bilateral knees (chief complaint) LOC PRIM OSTEOART-L/LEG 5 Carrol Persaud. [address] [facility], [address] [address], [place], [place], [address], [place]. tel:[phone] Referring Provider: Cori Waite, [address] [address], [place], [address] . tel:[phone] [facility], [address] [address], [place], [place], [address], [place] tel:[phone] [facility] Osteoarthrosis , localized, primary, involving lower leg Ravi- 6-201 5 Steffany Villagomez. [address] [facility], [address] [address], [place], [place], [address], [place]. tel:[phone] [facility], [address] [address], [place], [place], [address], [place] tel:[phone] [facility] Bilat knee (chief complaint) LOC PRIM OSTEOART-L/LEG Nov- 2-201 4 Carrol Persaud. [address] [facility], [address] [address], [place], [place], [address], [place]. tel:[phone] Referring Provider: Cori Waite, [address] [place] [address], [place], [address] . tel:[phone] [facility], [address] [place] [address], [place], [place], [address], [place] tel:[phone] [facility] LOC PRIM OSTEOART-L/LEG Jun-0 9-201 4 Steffany Villagomez. [address] [facility], [address] [address], [place], [place], [address], [place]. tel:[phone] [facility], [facility] [address], [place], [place], [address], [place] tel:[phone] [facility] bilateral knee pain (chief complaint) PAIN IN LIMBLOC PRIM OSTEOART-L/LEG JOINT PAIN-L/LEG Apr-0 8-201 4 Abeln Becky. [address] [place] [address], [address] [address], [place], [place], [address], [place]. tel:[phone] Referring Provider: Becky Verdin, [address] [place] [address], [place], [address] . tel:[phone] [facility], [facility] [address], [id number], [place] tel:[phone] [facility] bilateral knee pain (chief complaint) LOC PRIM OSTEOART-L/LEG Oct-0 3-201 3 No Information [facility], [address] [place] [address], [place], [place], [address], [place] tel:[phone] [facility] LOC PRIM OSTEOART-L/LEG May-0 3 Willis Asaf. [address] [facility], [address] [address], [place], [place], [address], [place]. tel:[phone] [facility], [address] [place] [address], [id number], [place] tel:[phone] [facility] bilateral knee pain (chief complaint) ARTHROPATHY NOS-L/LEG Nov- 3 No Information Referring Provider: Melvin Gu, [address] [place] [address], [address]. tel:[phone] [facility], [address] [place] [address], [id number], [place] tel:[phone] [facility] LOC PRIM OSTEOART-L/LEG May- 2 No Information Referring Provider: Melvin Gu, [address] [place] [address], [address]. tel:[phone] Office/outpa tient visit,[facility], [address] [place] [address], [place], [place], [address], [place] tel:[phone] [facility] DERANG LAT MENISCUS NOSDERANG MED MENISCUS NECLOC PRIM OSTEOART-L/LEG JOINT PAIN-L/LEG Apr- 2 Steffany Villagomez. [address] [facility], [address], [place], [place], [address], [place]. tel:[phone] Referring Provider: Melvin Gu, [address] [place] [address], [address]. tel:[phone] Office/outpa tient visit,[facility], [facility], [address], [id number], [place] tel:[phone] [facility] JOINT PAIN-L/LEGLOC PRIM OSTEOART-L/LEG TEAR MED MENISC KNEE-CUR 1 Steffany Villagomez. [address] [facility], [address], [place], [place], [address], [place]. tel:[phone] Referring Provider: Melvin Gu, [address] [place] [address], [address]. tel:[phone] Family History Family Member Type Diagnosis Age At Onset Father Problem (finding) stroke Father Problem (finding) hypertension Brother Problem (finding) Stroke Sister Problem (finding) Stroke Brother Problem (finding) Stroke Father Problem (finding) [...] Record Payers Payer name Insurance type Covered libertarian ID Authoriza tibecky(s) [place] Part B MB [id number] [employer] Senior Supplemental Insurance [id number] Social History Type Description Quantity Date Captured Comments Alcohol Use Details Unknown Caffeine Use Details Unknown Tobacco Use Status No Information Smoking Status No Information Non-Smoking Tobacco Use Details : No Details Available : No Details Available Sex Female Vital Signs Date / Time: Height Weight BMI Pulse Rate Blood Pressure Temperature Respiratory Rate Body Surface Area Head Circumference Head Circ. Percentile Wt./Mayito. Percentile BMI percentile Pulse Ox Inhaled Ox 9:18 AM 64.00 in 74.843 kg (165.00 lbs) 28.3 2 kg/m eter (2) Chief Complaint And Reason For Visit From encounter dated '01/20/2025 10:00'. Bilateral knees (chief complaint). Description: Magui returns to the office today for follow-up ofbilateral knee pain related to osteoarthritis. She received Synvisc 1 injections on 09/06/2024 withimprovement. Prior cortisone injections were done in September 2023. Pain is aggravated by standing and walking she request repeat cortisone injections today. Reason For Referral Reason For Referral No [...] Date Complaint History Of Prese nt Illness Bilateral knees Magui returns t o the office today for follow-up of bilateral knee pain related to osteoarthritis. She received Synvisc 1 injections on 09/06/2024 with improvement. Prior cortisone injections were done in September 2023. Pain is aggravated by standing and walking she request repeat cortisone injections today. bilateral knees Ms. Olivia grijalva es in the office today for Synvisc [...] Instructions Date Instruction Additional Infor jorge l Relative rest Take new medication as prescribe d Assessments Type Assessment Date assessment Bilateral primary osteoarthritis of knee impression Performed bilateral knee cortisone injections today. Follow-up in the office as needed. Patient Care Teams Name Effective Dates (start - stop) Status Members No Information
--- OUTSIDE RECORDS SUMMARY | 2025-02-27 06:42 | XMS_ITS | Clinical Summary ---
Author Organization [facility] Address [address] [place] [address] Care Team Providers Care Tire Fabricator Name Role Phone Becky Conroy NP Primary Care Provider [phone] Jose Chairez MD PhD Unavailable [phone] Evelin Lofton MD Unavailable [phone] Allergies No known active allergies Medications clopidogreL [...] AREA TWICE A DAY 80 g 3 5 Active cyclobenzaprine (FLEXERIL) 10 mg tablet TAKE 1 TABLET BY MOUTH AT BEDTIME NEEDED FOR MUSCLE SPASM 5 Active fluconazole (DIFLUCAN) 150 mg tablet TAKE 1 TABLET TODAY, TAKE SECOND TABLET IN 3 DAYS. 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),Melanoma of axilla (HCC) Take as directed on package 1 packet 5 02/18/20 25 Active Problems Problem Noted Date Diagnosed Date Metastatic malignant melanoma 10/11/2023 Metastatic melanoma 08/31/2023 Pain in right foot 08/24/2023 Benign essential HTN 07/18/2023 Dyslipidemia 07/18/2023 Malignant melanoma of unknown origin 07/18/2023 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 09/28/2016 Atherosclerosis of [place] co ronary artery of [place] heart without angina pectoris 03/04/2016 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 Overview (07/18/2023): March 2003 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 Encounters Date Type Department Care Team Description 02/11/2025 9:45 AM CDT Office Visit [facility] [address] [place] [phone] Jose Chairez MD PhD Malignant melanoma of unknown origin (HCC); 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); Melanoma of axilla (HCC) 02/11/2025 9:15 AM CDT Lab [address] [address] Malignant melanoma of unknown origin (HCC); 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); Melanoma of axilla (HCC) 02/10/2025 10:42 AM CDT - 02/10/2025 11:59 PM CDT Hospital Encounter [facility] [address] [place] [address] Discharge Disposition: Discharge to home or self care 02/10/2025 10:42 AM CDT - 02/10/2025 11:59 PM CDT Hospital Encounter [facility] [address] [place] [address] Malignant melanoma of unknown origin (HCC); 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); Melanoma of axilla (HCC) Discharge Disposition: Discharge to home or self care 12/06/2024 Telephone [facility] [address] [place] [phone] Asya Giles, MARGAUX 12/05/2024 Orders Only [facility] Scanning, Provider from Last 3 Months Immunizations Immunization Administration [...] on file 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 Gender Identity Not on file Sexual Orientation Not on file Obstetrics History Last Filed Vital Signs Vital Sign Reading Time Taken Comments Blood Pressure 134/78 02/11/2025 9:43 AM CDT Pulse 68 02/11/2025 9:43 AM CDT Temperature 36.7 C (98 F) 02/11/2025 9:43 AM CDT Respiratory Rate 16 02/11/2025 9:43 AM CDT Oxygen Saturation 93% 02/11/2025 9:43 AM CDT Inhaled Oxygen Concentration - - Weight 67 kg (147 lb 9.6 oz) 02/11/2025 9:43 AM CDT Height 160 cm (5' 3) 11/19/2024 12:07 PM CDT Body Mass Index 26.15 11/19/2024 12:07 PM CDT Plan of Treatment Health Maintenance Due Date Last Done Comments Depression Screening 1945 Osteoporosis Screening-Bone Density Scan 1945 DTaP/Tdap/Td Vaccine (1 - Tdap) 1954 Hepatitis B Screening 1961 Well Visit 65+ 2008 Pneumococcal vaccine 65+ (2 of 2 - PCV) 03/11/2019 03/11/2018 Covid-19 Vaccine (2023-2 5 season) 2024 06/24/2022, 01/03/2022, 07/09/2021, Additional history exists Fall Risk Assessment 11/22/2024 11/23/2023 Influenza Vaccine (Season Ended) 2025 06/21/2023, 06/22/2021, 03/11/2018 Zoster Vaccine Completed 02/02/2023, 09/12, 07/04/2015 Medical Devices Implanted Type Area Fishing Boat Captain Device Identifier Shelf Expiration Date Model / Serial / Lot Cardiac Stent X 1 N/A: Heart Procedures Procedure Name Priority Date/Time Associated Diagnosis Comments EGFR Routine 02/11/2025 9:23 AM CDT Malignant melanoma of unknown origin (HCC) 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) DIFFERENTIAL AUTO Routine 02/11/2025 9:2 3 AM CDT Malignant melanoma of unknown origin (HCC) 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) CBC WITH AUTO DIFFERENTIAL Routine 02/11/2025 9:23 AM CDT Malignant melanoma of unknown origin (HCC) 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) COMPREHENSIVE METABOLIC PANEL Routine 02/11/2025 9:23 AM CDT Malignant melanoma of unknown origin (HCC) 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) LACTATE DEHYDROGENASE Routine 02/11/2025 9:23 AM CDT Malignant melanoma of unknown origin (HCC) 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 73 m2 Comment: Interpretive Data [...] interpretive data was last reviewed 2021. Blood 02/11/2025 9:23 AM CDT 02/11/2025 9:23 AM CDT Daryl Glasgow NP LAB BLOOD ORDERABLES Valencia valadez Result [facility] Department [place] [address] * Differential, auto (02/11/2025 9:23 AM CDT) Neutrophil abs 4.52 1.50 - 6.50 K/cumm Comment:[facility] performed [facility] [address] [facility] [address] [address] Imm gran abs 0.03 0.00 - 0.10 K/cumm [facility] Lymphocyte abs 1.93 0.80 - 3.30 K/cumm [facility] Monocyte abs 0.71 0.20 - 0.80 K/cumm [facility] Eosinophil abs 0.13 0.00 - 0.50 K/cumm [facility] Basophil abs 0.07 0.00 - 0.10 K/cumm [facility] Neutrophil pct 61.2 % [facility] Comment: Interpretive Data Percent cell count reference ranges are not reported, since discordance with absolute values may lead to misinterpretation of CBC data. Current Interpretive Data was last revised on 2017. Imm gran pct 0.4 % [facility] Comment: Interpretive Data Percent cell count reference ranges are not reported, since discordance with absolute values may lead to misinterpretation of CBC data. Current Interpretive Data was last revised on 2017. Lymphocyte pct 26.1 % [facility] Comment: Interpretive Data Percent cell count reference ranges are not reported, since discordance with absolute values may lead to misinterpretation of CBC data. Current Interpretive Data was last revised on 2017. Monocyte pct 9.6 % [facility] Comment: Interpretive Data Percent cell count reference ranges are not reported, since discordance with absolute values may lead to misinterpretation of CBC data. Current Interpretive Data was last revised on 2017. Eosinophil pct 1.8 % [facility] Comment: Interpretive Data Percent cell count reference ranges are not reported, since discordance with absolute values may lead to misinterpretation of CBC data. Current Interpretive Data was last revised on 2017. Basophil pct 0.9 % [facility] Comment: Interpretive Data Percent cell count reference ranges are not reported, since discordance with absolute values may lead to misinterpretation of CBC data. Current Interpretive Data was last revised on 2017. Blood 02/11/2025 9:23 AM CDT 02/11/2025 9:23 AM CDT Drayl Glasgow NP LAB BLOOD ORDERABLES Valencia l Result Performing Organization Address City/[facility] Co de Phone Number [facility] [place] [address] * Thyroid Function Bivalve (02/11/2025 9:23 AM CDT) TSH 0.94 0.30 - 4.20 mcIUnit/mL Blood 02/11/2025 9:23 AM CDT 02/11/2025 10:57 AM CDT Daryl Glasgow NP LAB BLOOD ORDERABLES Valencia l Result Performing Organization Address [facility] Co de Phone Number [facility] [place] [address] * (ABNORMAL) CBC with auto differential (02/11/2025 9:23 AM CDT) WBC 7.39 3.80 - 9.90 K/cumm Comment:Testing performed by : [address] [address] Hgb 14.5 11.9 - 15.5 g/dL [facility] Comment:Testing performed by : [address] [address] Hct 42.4 35.6 - 45.5 % [facility] Comment:Testing performed by : [address] [address] Plt 238 150 - 400 K/cumm [facility] Comment:Testing performed by : [facility], [address] [place] [address] MPV 9.4 9.1 - 12.3 fL [facility] RBC 4.97 3.90 - 5.20 M/cumm [facility] MCV 85.3 81.3 - 96.4 fL [facility] MCH 29.2 27.1 - 33.3 pg [facility] MCHC 34.2 32.3 - 35.7 g/dL [facility] RDW CV 13.7 11.1 - 14.9 % [facility] RDW SD 42.6 35.7 - 48.1 fL [facility] NRBC abs 0.10(H) 0.00 - 0.01 K/cumm [facility] ANC Prelim 4.52 1.50 - 6.50 K/cumm [facility] Comment: Interpretive Data The rapid ANC is a preliminary automated count and may vary from the final ANC (Neut Abs) reported in the WBC differential that follows. Current interpretive data was last revised 2024. Blood 02/11/2025 9:23 AM CDT 02/11/2025 9:23 AM CDT Daryl Glasgow NP LAB BLOOD ORDERABLES Valencia l Result [facility] Department [place] [address] * (ABNORMAL) Lactate dehydrogenase (LD) (02/11/2025 9:23 AM CDT) Pathologist [facility] Lactate dehydrogenase (LDH) 289(H) 100 - 250 Units/L Comment:Testing performed by : [facility], [address] [place] [address] Blood 02/11/2025 9:23 AM CDT 02/11/2025 9:23 AM CDT Daryl Glasgow NP LAB BLOOD ORDERABLES Valencia l Result [facility] Department [place] [address] * (ABNORMAL) Comprehensive metabolic panel (02/11/2025 9:23 AM CDT) Sodium 139 135 - 145 mmol/L Comment:Testing performed by : [facility], [address] [place] [address] Potassium, pl 3.4 3.3 - 4.9 mmol/L [facility] Chloride 101 97 - 110 mmol/L [facility] CO2 26 22 - 32 mmol/L [facility] Anion gap 12 2 - 15 mmol/L [facility] BUN 23 6 - 25 mg/dL [facility] Creatinine 0.81 0.60 - 1.10 mg/dL [facility] Glucose 109 70 - 199 mg/dL [facility] Comment: Interpretive Data Fasting glucose >/= 126 [...] 2022. Calcium 10.4(H) 8.5 - 10.3 mg/dL [facility] Bilirubin, total 0.5 0.1 - 1.2 mg/dL [facility] Protein, pl 7.5 6.5 - 8.5 g/dL [facility] Albumin 4.4 3.5 - 5.0 g/dL [facility] Alk phos 58 40 - 130 Units/L [facility] ALT 20 7 - 45 Units/L [facility] AST 29 10 - 45 Units/L [facility] Blood 02/11/2025 9:23 AM CDT 02/11/2025 9:23 AM CDT us Daryl Glasgow GROCERY SUPERVISOR LAB BLOOD ORDERABLES Valencia l Result [facility] Department [place] [address] * PET/CT FDG Skull to Thigh (02/10/2025 12:44 PM CDT) Anatomical Region Laterality Modality N/A Positron Emissio n Tomography (PET) 02/10/2025 2:21 PM CDT Impressions 02/10/2025 3:27 PM CDT 1. No evidence of recurrent local or new metastatic disease. 2. Overall stable areas of geographic consolidation and groundglass opacities seen throughout both lungs which representing an ongoing organizing pneumonia or inflammatory pneumonia. 3. There is a right middle lobe pulmonary nodule with mild FDG activity. Unable to determine size at this time due to surrounding pneumonia. Attention on followup imaging. Dictated by: Dani Bundy MD The radiology attending physician has personally reviewed this study, and had reviewed and/or edited this written report and agrees with it. Electronically signed by: Darnell Domingo DO Narrative 02/10/2025 3:27 PM CDT EXAMINATION: TUMOR FDG-PET/CT IMAGING DATE OF STUDY: 02/10/2025 SCANNER: [facility] RADIOPHARMACEUTICAL: 17.0 mCi F-18 Fluorodeoxyglucose (FDG) i.v. Injection site: Right hand HISTORY: Metastatic melanoma involving the left axilla and an indeterminate 1.2 cm right middle lobe pulmonary nodule. Status post neoadjuvant immunotherapy and left axillary lymph node dissection (10/11/2023), which was significant for nob viable tumor as well as adjuvant immunotherapy. The study is requested for restaging after completion of therapy. Subsequent treatment strategy. TECHNIQUE: The patient's fasting blood glucose level, measured by glucometer before injection of FDG, was 111 mg/dL. After intravenous administration of FDG, noncontrast CT images were obtained for attenuation correction and for fusion with emission PET images to allow for anatomical localization of PET findings. Emission PET images were then obtained. The study was interpreted on the [employer] workstation. The mean liver SUV (reported for quality control tech purposes) is 2.7. The total scanned area was skull vertex to knees. Images of the body were obtained starting 87 minutes after injection of tracer. All reported SUVs are maximum SUVs, unless otherwise specified. COMPARISON: Most recent PET 06/30/2025 and PET CTs dating back to . DESCRIPTORS OF LESION FDG AVIDITY: Minimal: <= blood pool Mild: > blood pool and <= liver Moderate: > liver and <= 2x SUVmax liver Moderate to marked: >2x SUVmax liver and <= 3x SUVmax liver Marked: > 3x SUVmax liver FINDINGS: No suspicious FDG uptake identified. No evidence of local recurrence or new metastatic disease. There is a right middle lobe pulmonary nodule with mild FDG activity. At this time, unable to determine exact size of this lesion due to surrounding pneumonia. Focal mild uptake is noted within the lesion. There is stable diffuse mildly avid left breast skin thickening which is likely related to lymphedema in the setting of recent axillary lymph node dissection. Additional CT findings: Areas of geographic consolidation and groundglass opacities are seen throughout both lungs in a similar distribution compared to prior examination. Old granulomatous disease in the spleen. Photopenic hypodense lesion within the spleen could represent a small cyst. Prior cholecystectomy. The right upper pole renal cyst. Hysterectomy. Procedure Note Darnell Domingo DO - 02/10/2025 EXAMINATION: TUMOR FDG-PET/CT IMAGING DATE OF STUDY: 02/10/2025 SCANNER: [facility] RADIOPHARMACEUTICAL: 17.0 mCi F-18 Fluorodeoxyglucose (FDG) i.v. Injection site: Right hand HISTORY: Metastatic melanoma involving the left axilla and an indeterminate 1.2 cm right middle lobe pulmonary nodule. Status post neoadjuvant immunotherapy and left axillary lymph node dissection (10/11/2023), which was significant for nob viable tumor as well as adjuvant immunotherapy. The study is requested for restaging after completion of therapy. Subsequent treatment strategy. TECHNIQUE: The patient's fasting blood glucose level, measured by glucometer before injection of FDG, was 111 mg/dL. After intravenous administration of FDG, noncontrast CT images were obtained for attenuation correction and for fusion with emission PET images to allow for anatomical localization of PET findings. Emission PET images were then obtained. The study was interpreted on the [employer] workstation. The mean liver SUV (reported for quality control tech purposes) is 2.7. The total scanned area was skull vertex to knees. Images of the body were obtained starting 87 minutes after injection of tracer. All reported SUVs are maximum SUVs, unless otherwise specified. COMPARISON: Most recent PET 06/30/2025 and PET CTs dating back to . DESCRIPTORS OF LESION FDG AVIDITY: Minimal: <= blood pool Mild: > blood pool and <= liver Moderate: > liver and <= 2x SUVmax liver Moderate to marked: >2x SUVmax liver and <= 3x SUVmax liver Marked: > 3x SUVmax liver FINDINGS: No suspicious FDG uptake identified. No evidence of local recurrence or new metastatic disease. There is a right middle lobe pulmonary nodule with mild FDG activity. At this time, unable to determine exact size of this lesion due to surrounding pneumonia. Focal mild uptake is noted within the lesion. There is stable diffuse mildly avid left breast skin thickening which is likely related to lymphedema in the setting of recent axillary lymph node dissection. Additional CT findings: Areas of geographic consolidation and groundglass opacities are seen throughout both lungs in a similar distribution compared to prior examination. Old granulomatous disease in the spleen. Photopenic hypodense lesion within the spleen could represent a small cyst. Prior cholecystectomy. The right upper pole renal cyst. Hysterectomy. IMPRESSION: 1. No evidence of recurrent local or new metastatic disease. 2. Overall stable areas of geographic consolidation and groundglass opacities seen throughout both lungs which representing an ongoing organizing pneumonia or inflammatory pneumonia. 3. There is a right middle lobe pulmonary nodule with mild FDG activity. Unable to determine size at this time due to surrounding pneumonia. Attention on followup imaging. Dictated by: Dani Bundy MD The radiology attending physician has personally reviewed this study, and had reviewed and/or edited this written report and agrees with it. 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
--- OUTSIDE RECORDS SUMMARY | 2025-02-27 06:42 | XMS_ITS | Encounter Summary ---
Author Organization [facility] Address [address] 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
--- OUTSIDE RECORDS SUMMARY | 2025-02-27 06:42 | XMS_ITS | Referral Summary ---
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); Melanoma of axilla (HCC) 02/11/2025 9:15 AM CDT Lab [facility] [address] [place] [id number] Malignant melanoma of unknown origin (HCC); 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); Melanoma of axilla (HCC) 02/10/2025 10:42 AM CDT - 02/10/2025 11:59 PM CDT Hospital Encounter [facility] [address] [place] [address] Discharge Disposition: Discharge to home or self care 02/10/2025 10:42 AM CDT - 02/10/2025 11:59 PM CDT Hospital Encounter [facility] [address] [place] [address] Malignant melanoma of unknown origin (HCC); 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); Melanoma of axilla (HCC) Discharge Disposition: Discharge to home or self care 12/06/2024 Telephone [facility] [address] [place] [address] Asya Giles RN 12/05/2024 Orders Only [facility] Scanning, Provider from Last 3 Months Allergies No known [...] osteoarthritis of both knees 09/28/2016 Atherosclerosis of hopi co 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 03/04/2016 Old myocardial [...] on file Legal 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 Gender Identity Not on file Sexual Orientation [...] on file Medical Devices Implanted Type Area Golf Cart Mechanic Device Identifier Shelf Expiration Date Model / [...] NP LAB BLOOD ORDERABLES Valencia rory Result [facility] Department [place] [address] * Differential, auto (02/11/2025 9:23 AM CDT) Neutrophil abs 4.52 1.50 - 6.50 K/cumm Comment:Testing performed by : [facility], [address] [place] [address] Imm gran abs 0.03 0.00 - 0.10 K/cumm [facility] Lymphocyte abs 1.93 0.80 - 3.30 K/cumm [facility] Monocyte abs 0.71 0.20 - 0.80 K/cumm [facility] Eosinophil abs 0.13 0.00 - 0.50 K/cumm [facility] Basophil abs 0.07 0.00 - 0.10 K/cumm [facility] Neutrophil pct 61.2 % [facility] Comment: Interpretive Data Percent cell count reference ranges are not reported, since discordance with absolute values may lead to misinterpretation of CBC data. Current Interpretive Data was last revised on 2017. Imm gran pct 0.4 % [facility] Comment: Interpretive Data Percent cell count reference ranges are not reported, since discordance with absolute values may lead to misinterpretation of CBC data. Current Interpretive Data was last revised on 2017. Lymphocyte pct 26.1 % [facility] Comment: Interpretive Data Percent cell count reference ranges are not reported, since discordance with absolute values may lead to misinterpretation of CBC data. Current Interpretive Data was last revised on 2017. Monocyte pct 9.6 % [facility] Comment: Interpretive Data Percent cell count reference ranges are not reported, since discordance with absolute values may lead to misinterpretation of CBC data. Current Interpretive Data was last revised on 2017. Eosinophil pct 1.8 % [facility] Comment: Interpretive Data Percent cell count reference ranges are not reported, since discordance with absolute values may lead to misinterpretation of CBC data. Current Interpretive Data was last revised on 2017. Basophil pct 0.9 % [facility] Comment: Interpretive Data Percent cell count reference ranges are not reported, since discordance with absolute values may lead to misinterpretation of CBC data. Current Interpretive Data was last revised on 2017. Blood 02/11/2025 9:23 AM CDT 02/11/2025 9:23 AM CDT Daryl Glasgow NP LAB BLOOD ORDERABLES Valencia l Result Performing Organization Address City/[facility]/ZIP Co de Phone Number [facility] Department [place] [address] * Thyroid Function [place] (02/11/2025 9:23 AM CDT) Pathologist [facility] TSH 0.94 0.30 - 4.20 mcIUnit/mL Blood 02/11/2025 9:23 AM CDT 02/11/2025 10:57 AM CDT Daryl Glasgow NP LAB BLOOD ORDERABLES Valencia l Result [facility] Department [place] [address] * (ABNORMAL) CBC with auto differential (02/11/2025 9:23 AM CDT) WBC 7.39 3.80 - 9.90 K/cumm Comment:Testing performed by : [facility], [address] [place] [address] Hgb 14.5 11.9 - 15.5 g/dL [facility] Comment:Testing performed by : [facility], [address] [place] [address] Hct 42.4 35.6 - 45.5 % [facility] Comment:Testing performed by : [facility], [address] [place] [address] 90692 Plt 238 150 - 400 K/cumm [facility] Comment:Testing performed by : [facility], [address] [place] [address] MPV 9.4 9.1 - 12.3 fL [facility] RBC 4.97 3.90 - 5.20 M/cumm [facility] MCV 85.3 81.3 - 96.4 fL [facility] MCH 29.2 27.1 - 33.3 pg [facility] MCHC 34.2 32.3 - 35.7 g/dL [facility] RDW CV 13.7 11.1 - 14.9 % [facility] RDW SD 42.6 35.7 - 48.1 fL [facility] NRBC abs 0.10(H) 0.00 - 0.01 K/cumm [facility] ANC Prelim 4.52 1.50 - 6.50 K/cumm [facility] Comment: Interpretive Data The rapid ANC is a preliminary automated count and may vary from the final ANC (Neut Abs) reported in the WBC differential that follows. Current interpretive data was last revised 2024. Blood 02/11/2025 9:23 AM CDT 02/11/2025 9:23 AM CDT us Daryl Glasgow NP LAB BLOOD ORDERABLES Valencia l Result [facility] Department [place] [address] * (ABNORMAL) Lactate dehydrogenase (LD) (02/11/2025 9:23 AM CDT) Lactate dehydrogenase (LDH) 289(H) 100 - 250 Units/L Comment:Testing performed by : [facility], [address] [place] [address] Blood 02/11/2025 9:23 AM CDT 02/11/2025 9:23 AM CDT Daryl Glasgow NP LAB BLOOD ORDERABLES Valencia l Result [facility] Department [place] [address] * (ABNORMAL) Comprehensive metabolic panel (02/11/2025 9:23 AM CDT) Pathologist [facility] Sodium 139 135 - 145 mmol/L Comment:Testing performed by : [facility], [address] [place] [address] Potassium, pl 3.4 3.3 - 4.9 mmol/L [facility] Chloride 101 97 - 110 mmol/L [facility] CO2 26 22 - 32 mmol/L [facility] Anion gap 12 2 - 15 mmol/L [facility] BUN 23 6 - 25 mg/dL [facility] Creatinine 0.81 0.60 - 1.10 mg/dL [facility] Glucose 109 70 - 199 mg/dL [facility] [...] 2022. Calcium 10.4(H) 8.5 - 10.3 mg/dL [facility] Bilirubin, total 0.5 0.1 - 1.2 mg/dL [facility] Protein, pl 7.5 6.5 - 8.5 g/dL [facility] Albumin 4.4 3.5 - 5.0 g/dL [facility] Alk phos 58 40 - 130 Units/L [facility] ALT 20 7 - 45 Units/L [facility] AST 29 10 - 45 Units/L [facility] Blood 02/11/2025 9:23 AM CDT 02/11/2025 9:23 AM CDT us Daryl Glasgow NP LAB BLOOD ORDERABLES Valencia l Result [facility] Department [place] [address] * PET/CT FDG Skull to Thigh (02/10/2025 [...] FDG-PET/CT IMAGING DATE OF STUDY: 02/10/2025 SCANNER: [facility] RADIOPHARMACEUTICAL: 17.0 mCi F-18 Fluorodeoxyglucose (FDG) i.v. [...] obtained. The study was interpreted on the [employer] workstation. The mean liver SUV (reported for [...] FDG-PET/CT IMAGING DATE OF STUDY: 02/10/2025 SCANNER: [facility] RADIOPHARMACEUTICAL: 17.0 mCi F-18 Fluorodeoxyglucose (FDG) i.v. [...] obtained. The study was interpreted on the [employer] workstation. The mean liver SUV (reported for [...] by: Darnell Domingo DO Daryl Glasgow NP IM PET PROCEDURES Final Result * SCAN - RADIOLOGY/IMAGING (12/05/2024) Anatomical Region Laterality Modality Other us Provider Scanning Edited Result - Final from Last 3 Months Insurance MEDICARE [facility] SENIOR SUPPLEMENT MEDICARE T SENIOR SUPPLEMENT Advance Directives For more information, please contact: [phone] Documents on File Type Date Recorded Patient Disaster Recovery Consultant Expl anation ADVANCE DIRECTIVE 10/11/2023 6:33 AM Livin g Will * Full Code (Latest Code [...] 10:59 AM 10/12/2023 4:16 PM Care Teams Technician Automatic Relationship Specialty Start Date End Date Becky Conroy NP [address] [place] [address] PCP - General Nurse Practitioner 07/06/23 Jose Chairez MD PhD [address] [facility] [address] [place] [address] Medical Oncologist/Development Representative Medical Oncology 08/14/23 Evelin Lofton MD [address] [place] [address] Referring Physician Cardiovascular Disease 08/14/23
== END 2025-02-27 06:40 | disposition home or self-care (01) ==
LOC: CHSLAB 06:40
PROVIDERS: PCP Nurse Practitioner Family; Visit Provider Nurse Practitioner Family
DX: R05.9 Cough, unspecified (principal)
CPT/HCPCS: 87070; 87205

== ENCOUNTER 2025-03-11 07:13 | Outpatient (CLI) | payer MEDICARE, SELFPAY ==
--- OUTSIDE RECORDS SUMMARY | 2025-03-11 07:16 | XMS_ITS | Clinical Summary ---
Author Organization [facility] Address [address] [place] [address] Care Team Providers Care Superintendent Laundry Name Role Phone Maci Lofton MD Unavailable [phone] Becky Conroy Primary Care Provider [phone] Allergies No known active allergies Medications aspirin 81 MG tablet Take 1 tablet (81 mg total) by mouth daily. 10/09/2009 Active Biotin 2500 MCG Cap Take 2 tablets by mouth daily. 12/24/2014 Active omega-3 fatty acid 500 MG capsule Take 1 tablet by mouth daily. 12/24/2014 Active esomeprazole 40 MG capsule Take 1 capsule (40 mg total) by mouth as needed. 05/08/2008 Active metoprolol succinate ER 50 MG 24 hr tablet Take by mouth daily. 04/10/2003 Active Ergocalciferol (VITAMIN D2) 400 UNITS Tab Take 1 tablet by mouth daily. 10/09/2009 Active B Complex-C Tab tablet Take 1 tablet by mouth daily. Active zinc gluconate 50 MG Tab Take 1 tablet (50 mg total) by mouth daily. Active meloxicam 7.5 MG tablet TAKE 1 TABLET BY MOUTH ONCE DAILY NEEDED FOR SHOULDER PAIN. 10/23/2019 Active enalapril 10 MG tablet Take 1 tablet (10 mg total) by mouth daily. Active hydroCHLOROthia zide 25 MG tablet Take 1 tablet (25 mg total) by mouth every morning. Active furosemide 20 MG tablet Take 1 tablet (20 mg total) by mouth daily as needed. 02/11/2022 Active potassium chloride CR 10 MEQ Tab CR tablet Take 1 tablet (10 mEq total) by mouth daily. 01/13/2022 Active clopidogrel (PLAVIX) 75 MG tablet Take 1 tablet (75 mg total) by mouth daily. 06/26/2023 Active pembrolizumab (KEYTRUDA) 100 MG/4ML injection Inject 8 mLs (200 mg total) into the vein every 21 days. Active rosuvastatin (CRESTOR) 10 MG tablet TAKE 0.5 TABLETS (5 MG TOTAL) BY MOUTH NIGHTLY AT BEDTIME. 45 tablet 3 11/21/2024 11/22/19 26 Active Active Problems Problem Noted Date Diagnosed Date Atherosclerosis of hopi co 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 03/04/2016 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 Overview (03/04/2016): March 2003 Coronary artery disease Benign essential HTN Dyslipidemia Resolved Problems Problem Noted Date Diagnosed Date Resolved Date Preop cardiovascular exam 06/28/2023 Encounters Date Type Department Care Team Description 12/20/2024 Telephone [facility] [address] [place] [address] Grace Pedersen MD Question from Last 3 Months Family History Medical History Relation Comments Heart Attack Brother 1 Stent Cardiac Brother 1 Stroke Brother 1 Hypertension Father Stroke Father Hypertension Mother Stroke Mother Heart Attack Sister 1 Stroke Sister 1 Relation Status Comments Brother 1 Alive [place] at age 60 Brother 2 Father (Age 60s) Maternal Grandfather Maternal Grandmother Mother (Age 70s) Paternal Grandfather Paternal Grandmother Sister 1 [place], stroke at ag e 60 Sister 2 [...] Industry Job Start Date Job End Date 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 on file Not on file Not on file Last Filed Vital Signs Vital Sign Reading Time Taken Comments Blood Pressure 128/76 07/15/2024 10:33 AM [employer] NET DEVELOPER Pulse 67 07/15/2024 10:33 AM MI[employer]OS[employer] NET DEVELOPER Temperature - - Respiratory Rate 16 07/15/2024 10:33 AM MICROSOFT NET DEVELOPER Oxygen Saturation - - Inhaled Oxygen Concentration - - Weight 68.6 kg (151 lb 3.2 oz) 07/15/2024 10:33 AM MICROSOFT NET DEVELOPER Height 160 cm (5' 3) 07/15/2024 10:33 AM MICROSOFT NET DEVELOPER Body Mass Index 26.78 07/15/2024 10:33 AM MICROSOFT NET DEVELOPER Plan of Treatment Upcoming Encounters Date Type Department Care Team (Late st Contact Info) Description 07/15/2025 11:15 AM MICROSOFT NET DEVELOPER Office Visit [facility] [address] [place] [address] Grace Pedersen MD [address] [place] [address] Health Maintenance Due Date Last Done Comments DTaP, Tdap and Td Vaccines ( 1 - Tdap) 1962 Annual Medicare Wellness Visit 2008 Dexa Scan (General) 2008 RSV Immunization or 60+ Years (1 - 1-dose 75+ series) 2018 Pneumococcal Vaccine: 50+ Years (2 of 2 - PCV) 03/11/2019 03/11/2018 COVID-19 Vaccine (3 - 2023-2 5 season) 2024 10/05/2020, 09/07/2020 Zoster Vaccines Completed 02/02/2023, 10/04/2022, 07/04/2015 Meningococcal [...] topic Insurance MEDICARE MEDICARE [employer] Care Teams Superintendent Laundry Relationship Specialty Start Date End Date Becky Conroy FNP [address] [place] [address] PCP - General NURSE PRACTITIONER 02/04/20 Maci Lofton MD CARDIOVASCULAR DISEASE 03/09/16
--- OUTSIDE RECORDS SUMMARY | 2025-03-11 07:16 | XMS_ITS | Encounter Summary ---
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 [address] [place], [place] [id number] Medical Oncologist/Pick Up Man Medical Oncology 08/14/23 Evelin Lofton MD [address] [place] [address] Referring Physician Cardiovascular Disease 08/14/23 documented as of this encounter
--- OUTSIDE RECORDS SUMMARY | 2025-03-11 07:16 | XMS_ITS | Encounter Summary ---
Author Organization [facility] Address [address] [place] [address] Care Team Providers Care Ecommerce Manager Name Role Phone Cory Castro MD Primary Care Provider Maci Green MD Unavailable [phone] Maci Lofton MD Unavailable [phone] Becky Conroy Primary Care Provider [phone] Encounter Details Date Type Department Care Team (Late Contact Info) Description 04/18/2017 Abstract [facility] [address] [place] [address] Maci Lofton MD [address] [facility] [place] [address] Social History Tobacco Use Types [...] Industry Job Start Date Job End Date 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, [facility] [address] [place] [address] PCP - Jen - MSSP Attributed Provider 09/11/15 05/29/19 Becky Conroy, CONSUELO [address] [place], [place] [id number] PCP - General NURSE PRACTITIONER 02/04/20 Maci Lofton MD CARDIOVASCULAR DISEASE 03/09/16 documented as of this encounter
--- OUTSIDE RECORDS SUMMARY | 2025-03-11 07:16 | XMS_ITS | Encounter Summary ---
Author Organization [facility] Address [address] [place] [address] Care Team Providers Care Primer Inserting Machine Operator Name Role Phone Cory Castro MD Primary Care Provider Maci Green MD Unavailable [phone] Maci Lofton MD Unavailable [phone] Becky ConroyP Primary Care Provider [phone] Encounter Details Date Type Department Care Team (Late st Contact Info) Description 12/24/2014 Abstract [facility] [address] [place] [address] Maci Lofton MD [address] [facility], [address] [place] [address] Social History Tobacco Use Types [...] Industry Job 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 Date Job End Date 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 on file Not on file Not on file documented as of this encounter Plan of Treatment Upcoming Encounters Date Type Department Care Team (Late st Contact Info) Description 07/15/2025 11:[address] [employer] [facility] [address] [place] [address] Grace Pedersen MD [address] [place] [address] documented as of this encounter Visit Diagnoses Not on filedocumented in this encounter Care Teams Primer Inserting Machine Operator Relationship Specialty Start Date End Date Cory Castro MD PCP - General SURGERY 03/09/16 02/03/20 Maci Lofton MD [address] [facility] [address] [place] [address] PCP - Jen - MSSP Attributed Provider 09/11/15 05/29/19 Becky Conroy FNP [address] [place], [place] [id number] PCP - General NURSE PRACTITIONER 02/04/20 Maci Lofton MD CARDIOVASCULAR DISEASE 03/09/16 documented as of this encounter
--- OUTSIDE RECORDS SUMMARY | 2025-03-11 07:16 | XMS_ITS | Referral Summary ---
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); Melanoma of axilla (HCC) 02/11/2025 9:15 AM CDT Lab [facility] [address] [place] [address] Malignant melanoma of unknown origin (HCC); 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); Melanoma of axilla (HCC) 02/10/2025 10:42 AM CDT - 02/10/2025 11:59 PM CDT Hospital Encounter [facility] [address] [place] [address] Discharge Disposition: Discharge to home or self care 02/10/2025 10:42 AM CDT - 02/10/2025 11:59 PM CDT Hospital Encounter [facility] [address] [place] [address] Malignant melanoma of unknown origin (HCC); Melanoma [...] osteoarthritis of both knees 09/28/2016 Atherosclerosis of [place] co ronary artery of crow heart without angina pectoris 03/04/2016 Old myocardial [...] file Legal 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 Gender Identity Not on file Sexual [...] on file Medical Devices Implanted Type Area Tire Repairer Device Identifier Shelf Expiration Date Model / [...] NP LAB BLOOD ORDERABLES Valencia rory Result [facility] One [facility] [place] [address] * Differential, auto (02/11/2025 9:23 AM CDT) Neutrophil abs 4.52 1.50 - 6.50 K/cumm Comment:Testing performed by : [address] [address] Imm gran abs 0.03 0.00 - 0.10 K/cumm [facility] Lymphocyte abs 1.93 0.80 - 3.30 K/cumm [facility] Monocyte abs 0.71 0.20 - 0.80 K/cumm [facility] Eosinophil abs 0.13 0.00 - 0.50 K/cumm [facility] Basophil abs 0.07 0.00 - 0.10 K/cumm [facility] Neutrophil pct 61.2 % [facility] Comment: Interpretive Data Percent cell count reference ranges are not reported, since discordance with absolute values may lead to misinterpretation of CBC data. Current Interpretive Data was last revised on 2017. Imm gran pct 0.4 % [facility] Comment: Interpretive Data Percent cell count reference ranges are not reported, since discordance with absolute values may lead to misinterpretation of CBC data. Current Interpretive Data was last revised on 2017. Lymphocyte pct 26.1 % [facility] Comment: Interpretive Data Percent cell count reference ranges are not reported, since discordance with absolute values may lead to misinterpretation of CBC data. Current Interpretive Data was last revised on 2017. Monocyte pct 9.6 % [facility] Comment: Interpretive Data Percent cell count reference ranges are not reported, since discordance with absolute values may lead to misinterpretation of CBC data. Current Interpretive Data was last revised on 2017. Eosinophil pct 1.8 % [facility] Comment: Interpretive Data Percent cell count reference ranges are not reported, since discordance with absolute values may lead to misinterpretation of CBC data. Current Interpretive Data was last revised on 2017. Basophil pct 0.9 % [facility] Comment: Interpretive Data Percent cell count reference ranges are not reported, since discordance with absolute values may lead to misinterpretation of CBC data. Current Interpretive Data was last revised on 2017. Blood 02/11/2025 9:23 AM CDT 02/11/2025 9:23 AM CDT Daryl Glasgow AGENCY CASHIER LAB BLOOD ORDERABLES Valencia l Result Performing Organization Address City/[facility]/ZIP Co de Phone Number [facility] [place] [address] * Thyroid Function [place] (02/11/2025 9:23 AM CDT) Pathologist [facility] TSH 0.94 0.30 - 4.20 mcIUnit/mL Blood 02/11/2025 9:23 AM CDT 02/11/2025 10:57 AM CDT Daryl Glasgow NP LAB BLOOD ORDERABLES Valencia l Result Performing Organization Address City/[facility] Co de Phone Number [facility] [place] [address] * (ABNORMAL) CBC with auto differential (02/11/2025 9:23 AM CDT) WBC 7.39 3.80 - 9.90 K/cumm Comment:Testing performed by : [address] [address] Hgb 14.5 11.9 - 15.5 g/dL [facility] Comment:Testing performed by : [address] [address] Hct 42.4 35.6 - 45.5 % [facility] Comment:Testing performed by : [facility], [address] [place] [address] Plt 238 150 - 400 K/cumm [facility] Comment:Testing performed by : [facility], [address] [place] [address] MPV 9.4 9.1 - 12.3 fL [facility] RBC 4.97 3.90 - 5.20 M/cumm [facility] MCV 85.3 81.3 - 96.4 fL [facility] MCH 29.2 27.1 - 33.3 pg [facility] MCHC 34.2 32.3 - 35.7 g/dL [facility] RDW CV 13.7 11.1 - 14.9 % [facility] RDW SD 42.6 35.7 - 48.1 fL [facility] NRBC abs 0.10(H) 0.00 - 0.01 K/cumm [facility] ANC Prelim 4.52 1.50 - 6.50 K/cumm [facility] Comment: Interpretive Data The rapid ANC is a preliminary automated count and may vary from the final ANC (Neut Abs) reported in the WBC differential that follows. Current interpretive data was last revised 2024. Blood 02/11/2025 9:23 AM CDT 02/11/2025 9:23 AM CDT Daryl Glasgow NP LAB BLOOD ORDERABLES Valencia l Result [facility] One [facility] [place] [address] * (ABNORMAL) Lactate dehydrogenase (LD) (02/11/2025 9:23 AM CDT) Lactate dehydrogenase (LDH) 289(H) 100 - 250 Units/L Comment:Testing performed by : [facility], [address] [place] [address] Blood 02/11/2025 9:23 AM CDT 02/11/2025 9:23 AM CDT Daryl Glasgow NP LAB BLOOD ORDERABLES Valencia valadez Result [facility] [place] [address] * (ABNORMAL) Comprehensive metabolic panel (02/11/2025 9:23 AM CDT) Sodium 139 135 - 145 mmol/L Comment:Testing performed by : [facility], [address] [place] [address] Potassium, pl 3.4 3.3 - 4.9 mmol/L [facility] Chloride 101 97 - 110 mmol/L [facility] CO2 26 22 - 32 mmol/L [facility] Anion gap 12 2 - 15 mmol/L [facility] BUN 23 6 - 25 mg/dL [facility] Creatinine 0.81 0.60 - 1.10 mg/dL [facility] Glucose 109 70 - 199 mg/dL [facility] Comment: Interpretive Data Fasting glucose [...] 2022. Calcium 10.4(H) 8.5 - 10.3 mg/dL [facility] Bilirubin, total 0.5 0.1 - 1.2 mg/dL [facility] Protein, pl 7.5 6.5 - 8.5 g/dL [facility] Albumin 4.4 3.5 - 5.0 g/dL [facility] Alk phos 58 40 - 130 Units/L [facility] ALT 20 7 - 45 Units/L [facility] AST 29 10 - 45 Units/L [facility] Blood 02/11/2025 9:23 AM CDT 02/11/2025 9:23 AM CDT us Daryl Glasgow NP LAB BLOOD ORDERABLES Valencia valadez Result [facility] [place] [address] * PET/CT FDG Skull to Thigh (02/10/2025 [...] FDG-PET/CT IMAGING DATE OF STUDY: 02/10/2025 SCANNER: [facility] RADIOPHARMACEUTICAL: 17.0 mCi F-18 Fluorodeoxyglucose (FDG) [...] obtained. The study was interpreted on the [employer] workstation. The mean liver SUV (reported for microbiology quality control technician purposes) is 2.7. The [...] FDG-PET/CT IMAGING DATE OF STUDY: 02/10/2025 SCANNER: [facility] RADIOPHARMACEUTICAL: 17.0 mCi F-18 Fluorodeoxyglucose (FDG) [...] obtained. The study was interpreted on the [employer] workstation. The mean liver SUV (reported for microbiology quality control technician purposes) is 2.7. The [...] Result from Last 3 Months Insurance MEDICARE AET SENIOR SUPPLEMENT MEDICARE AET SENIOR SUPPLEMENT Advance Directives For more information, please contact: [phone] Documents on File Type Date Recorded Patient Tavern Keeper Expl anation ADVANCE DIRECTIVE 10/11/2023 6:33 AM [...] 10:59 AM 10/12/2023 4:16 PM Care Teams Child And Adolescent Psychologist Relationship Specialty Start Date End Date Becky Conroy AGENCY CASHIER [address] [place] [address] PCP - General Nurse Practitioner 07/06/23 Jose Chairez MD PhD [address] [facility] [address] [place], [place] [id number] Medical Oncologist/Diamond Wheel Molder Medical Oncology 08/14/23 Evelin Lofton MD [address] [place] [address] Referring Physician Cardiovascular Disease 08/14/23
--- OUTSIDE RECORDS SUMMARY | 2025-03-11 07:16 | XMS_ITS | Clinical Summary ---
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); Melanoma of axilla (HCC) 02/10/2025 10:42 AM CDT - 02/10/2025 11:59 PM CDT Hospital Encounter [facility] [address] [place] [address] Discharge Disposition: Discharge to home or self care 02/10/2025 10:42 AM CDT - 02/10/2025 11:59 PM CDT Hospital Encounter [facility] [address] [place] [address] Malignant melanoma of unknown origin (HCC); Melanoma [...] of hypertension - (A dded by DELIA Conv) Old myocardial infarction Past m yocardial infarction - (Added by DELIA Conv) Melanoma (HCC) Motion sickness Hypertension Family [...] on file 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 Gender Identity Not on file Sexual [...] 2 - PCV) 03/11/2019 03/11/2018 Covid-19 Vaccine (2023- 5 season) 2024 06/24/2022, 01/03/2022, 07/09/2021, Additional history exists Fall Risk Assessment 11/22/2024 11/23/2023 Influenza Vaccine (Season Ended) 2025 06/21/2023, 06/22/2021, 03/11/2018 Zoster Vaccine Completed 02/02/2023, 09/12, 07/04/2015 Medical Devices Implanted Type Area Rn Pain Management Device Identifier Shelf Expiration Date Model / [...] NP LAB BLOOD ORDERABLES Valencia l Result [facility] Department [place] [address] * Differential, auto (02/11/2025 9:23 AM CDT) Neutrophil abs 4.52 1.50 - 6.50 K/cumm Comment:Testing performed by : [facility], [address] [facility] [address] Imm gran abs 0.03 0.00 - 0.10 K/cumm [facility] Lymphocyte abs 1.93 0.80 - 3.30 K/cumm [facility] Monocyte abs 0.71 0.20 - 0.80 K/cumm [facility] Eosinophil abs 0.13 0.00 - 0.50 K/cumm [facility] Basophil abs 0.07 0.00 - 0.10 K/cumm [facility] Neutrophil pct 61.2 % [facility] Comment: Interpretive Data Percent cell count reference ranges are not reported, since discordance with absolute values may lead to misinterpretation of CBC data. Current Interpretive Data was last revised on 2017. Imm gran pct 0.4 % [facility] Comment: Interpretive Data Percent cell count reference ranges are not reported, since discordance with absolute values may lead to misinterpretation of CBC data. Current Interpretive Data was last revised on 2017. Lymphocyte pct 26.1 % [facility] Comment: Interpretive Data Percent cell count reference ranges are not reported, since discordance with absolute values may lead to misinterpretation of CBC data. Current Interpretive Data was last revised on 2017. Monocyte pct 9.6 % [facility] Comment: Interpretive Data Percent cell count reference ranges are not reported, since discordance with absolute values may lead to misinterpretation of CBC data. Current Interpretive Data was last revised on 2017. Eosinophil pct 1.8 % [facility] Comment: Interpretive Data Percent cell count reference ranges are not reported, since discordance with absolute values may lead to misinterpretation of CBC data. Current Interpretive Data was last revised on 2017. Basophil pct 0.9 % [facility] Comment: Interpretive Data Percent cell count reference ranges are not reported, since discordance with absolute values may lead to misinterpretation of CBC data. Current Interpretive Data was last revised on 2017. Blood 02/11/2025 9:23 AM CDT 02/11/2025 9:23 AM CDT Daryl Glasgow MANAGER ACCOUNT MANAGEMENT LAB BLOOD ORDERABLES Valencia l Result Performing Organization Address City/[facility] Co de Phone Number [facility] [place] [address] * Thyroid Function [place] (02/11/2025 9:23 AM CDT) Pathologist [facility] TSH 0.94 0.30 - 4.20 mcIUnit/mL Blood 02/11/2025 9:23 AM CDT 02/11/2025 10:57 AM CDT Daryl Glasgow NP LAB BLOOD ORDERABLES Valencia l Result Performing Organization Address [facility] de Phone Number [facility] [place] [address] * (ABNORMAL) CBC with auto differential (02/11/2025 9:23 AM CDT) [facility] WBC 7.39 3.80 - 9.90 K/cumm Comment:Testing performed by : [address] [address] Hgb 14.5 11.9 - 15.5 g/dL [facility] Comment:Testing performed by : [address] [address] Hct 42.4 35.6 - 45.5 % [facility] Comment:Testing performed by : [address] [address] Plt 238 150 - 400 K/cumm [facility] Comment:Testing performed by : [address] [address] MPV 9.4 9.1 - 12.3 fL [facility] RBC 4.97 3.90 - 5.20 M/cumm [facility] MCV 85.3 81.3 - 96.4 fL [facility] MCH 29.2 27.1 - 33.3 pg [facility] MCHC 34.2 32.3 - 35.7 g/dL [facility] RDW CV 13.7 11.1 - 14.9 % [facility] RDW SD 42.6 35.7 - 48.1 fL [facility] NRBC abs 0.10(H) 0.00 - 0.01 K/cumm [facility] ANC Prelim 4.52 1.50 - 6.50 K/cumm [facility] Comment: Interpretive Data The rapid ANC is a preliminary automated count and may vary from the final ANC (Neut Abs) reported in the WBC differential that follows. Current interpretive data was last revised 2024. Blood 02/11/2025 9:23 AM CDT 02/11/2025 9:23 AM CDT us Daryl Glasgow NP LAB BLOOD ORDERABLES Valencia l Result Performing Organization Address City/[facility]/ZIP Co de Phone Number [facility] Department [place] [address] * (ABNORMAL) Lactate dehydrogenase (LD) (02/11/2025 9:23 AM CDT) [facility] Lactate dehydrogenase (LDH) 289(H) 100 - 250 Units/L Comment:Testing performed by : [facility], [address] [place] [address] Blood 02/11/2025 9:23 AM CDT 02/11/2025 9:23 AM CDT us Daryl Glasgow NP LAB BLOOD ORDERABLES Valencia l Result [facility] [place] [address] * (ABNORMAL) Comprehensive metabolic panel (02/11/2025 9:23 AM CDT) Sodium 139 135 - 145 mmol/L Comment:Testing performed by : [facility], [address] [facility] [address] Potassium, pl 3.4 3.3 - 4.9 mmol/L [facility] Chloride 101 97 - 110 mmol/L [facility] CO2 26 22 - 32 mmol/L [facility] Anion gap 12 2 - 15 mmol/L [facility] BUN 23 6 - 25 mg/dL [facility] Creatinine 0.81 0.60 - 1.10 mg/dL [facility] Glucose 109 70 - 199 mg/dL [facility] Comment: Interpretive Data Fasting glucose >/= 126 [...] 2022. Calcium 10.4(H) 8.5 - 10.3 mg/dL [facility] Bilirubin, total 0.5 0.1 - 1.2 mg/dL [facility] Protein, pl 7.5 6.5 - 8.5 g/dL [facility] Albumin 4.4 3.5 - 5.0 g/dL [facility] Alk phos 58 40 - 130 Units/L [facility] ALT 20 7 - 45 Units/L [facility] AST 29 10 - 45 Units/L [facility] Blood 02/11/2025 9:23 AM CDT 02/11/2025 9:23 AM CDT us Daryl Glasgow NP LAB BLOOD ORDERABLES Valencia valadez Result [facility] One [facility] Department [place] [address] * PET/CT FDG Skull to Thigh (02/10/2025 [...] and agrees with it. Electronically signed by: DO Delilah Freeman 02/10/2025 3:27 PM CDT EXAMINATION: TUMOR FDG-PET/CT IMAGING DATE OF STUDY: 02/10/2025 SCANNER: [facility] RADIOPHARMACEUTICAL: 17.0 mCi F-18 Fluorodeoxyglucose (FDG) [...] obtained. The study was interpreted on the [email or web address] workstation. The mean liver SUV (reported for quality control microbiology supervisor purposes) is 2.7. The total scanned area [...] FDG-PET/CT IMAGING DATE OF STUDY: 02/10/2025 SCANNER: [facility] RADIOPHARMACEUTICAL: 17.0 mCi F-18 Fluorodeoxyglucose (FDG) [...] obtained. The study was interpreted on the [email or web address] workstation. The mean liver SUV (reported for quality control microbiology supervisor purposes) is 2.7. The total scanned area [...] it. Electronically signed by: Darnell Domingo DO Authorrosa Provider Result Type Result Stat Daryl Glasgow NP IMG PET PROCEDURES Final Result from Last 3 Months Insurance MEDICARE AET SENIOR SUPPLEMENT MEDICARE AET SENIOR SUPPLEMENT Advance Directives For more information, please contact: [phone] Documents on File Type Date Recorded Patient Marketing Content Manager Expl anation ADVANCE DIRECTIVE 10/11/2023 6:33 AM [...] 10:59 AM 10/12/2023 4:16 PM Care Teams Flight Radio Operator Relationship Specialty Start Date End Date Becky Conroy MANAGER ACCOUNT MANAGEMENT [address] [place] [address] PCP - General Nurse Practitioner 07/06/23 Jose Chairez MD PhD [address] [facility] [address] [place], [place] [id number] Medical Oncologist/Aircraft Magneto Mechanic Medical Oncology 08/14/23 Evelin Lofton MD [address] [place] [address] Referring Physician Cardiovascular Disease 08/14/23
--- OUTSIDE RECORDS SUMMARY | 2025-03-11 07:16 | XMS_ITS | Encounter Summary ---
Author Organization [facility] Address [address] [place] [address] Care Team Providers Care Stacker And Sorter Operator Name Role Phone Cory Castro MD Primary Care Provider Maci Green MD Unavailable [phone] Maci Lofton MD Unavailable [phone] Becky ConroyP Primary Care Provider [phone] Encounter Details Date Type Department Care Team (Late st Contact Info) Description 03/07/2016 Abstract [facility] [address] [place] [address] Maci Lofton MD [address] [facility] [place], [address] [place] [address] Social History Tobacco Use Types [...] Industry Job 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 Job 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 on file Not on file Not on file documented as of this encounter Plan of Treatment Upcoming Encounters Date Type Department Care Team (Late st Contact Info) Description 07/15/2025 11:15 AM PROMOTIONS FIRM ACCOUNTS MANAGER [facility] [address] [place] [address] Grace Pedersen MD [address] [place], [place] [id number] documented as of this encounter Procedures Procedure [...] on filedocumented in this encounter Care Teams Stacker And Sorter Operator Relationship Specialty Start Date End Date Cory Castro MD PCP - General SURGERY 03/09/16 02/03/20 Maci Lofton MD [address], [address] [place] [address] PCP - Jen - MSSP Attributed Provider 09/11/15 05/29/19 Becky Conroy FNP [address] [place] [address] PCP - General NURSE PRACTITIONER 02/04/20 Maci Lofton MD CARDIOVASCULAR DISEASE 03/09/16 documented as of this encounter
--- OUTSIDE RECORDS SUMMARY | 2025-03-11 07:16 | XMS_ITS ---
Author Organization [facility] Address [address] [place] [address] Care Team Providers Care Highway Painter Name Role Phone Becky Conroy NP Primary Care Provider [phone] Jose Chairez MD PhD Unavailable [phone] Evelin Lofton MD Unavailable [phone] Active Problems Problem Noted Date Diagnosed Date Metastatic malignant melanoma 10/11/2023 Metastatic melanoma 08/31/2023 Pain in right foot 08/24/2023 Benign essential HTN 07/18/2023 Dyslipidemia 07/18/2023 Malignant melanoma of unknown origin 07/18/2023 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 09/28/2016 Atherosclerosis of [place] co ronary artery of [place] heart without angina pectoris 03/04/2016 Old myocardial [...]
--- OUTSIDE RECORDS SUMMARY | 2025-03-11 07:16 | XMS_ITS | Encounter Summary ---
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 on file Not on file Not on file documented as of this encounter Plan of Treatment Upcoming Encounters Date Type Department Care Team (Late Contact Info) Description 07/15/2025 11:15 AM CLOTH WASHER BACK TENDER Office Visit [facility] [address] [place] [address] Grace Pedersen MD [address] [place], [place] [address] documented as of this encounter Procedures Procedure [...] documented as of this encounter Care Teams Management Coordinator Relationship Specialty Start Date End Date Becky Conroy FNP [address] [place] [address] PCP - General NURSE PRACTITIONER 02/04/20 Maci Lofton MD CARDIOVASCULAR DISEASE 03/09/16 documented as of this encounter
--- OUTSIDE RECORDS SUMMARY | 2025-03-11 07:16 | XMS_ITS | Continuity of Care Document ---
Author Organization [facility] Address [address] [facility] [address] [facility] [address] [place] [address] Phone Care Team Providers Care Conditioning Room Worker Name Role Phone Cori Dunaway Unavailable Unavai [...] X-ray exam of both knees, standing [place] [place] Drain/inject major jointor bursa 2010 Depo Medrol Methylprednisolone 40 MG inj Advance Directives Directive Yes / No Effective Date File Name No Information Encounters Encounter Description Practice Location Reason(s) For Visit Diagnoses Date Provider Providers Copied on Encounter Office/outpa tient visit,est, mod [facility], [address], [id number], tel:[phone] [facility] Bilateral knees (chief complaint) Bilateral primary osteoarthritis of knee 5 Carrol Persaud. [address] [place] [address], [address], [id number], [place]. tel:[phone] Referring Provider: Cori Waite, [address] [facility] [address] [place] [address], [address] . tel:[phone] [facility], [address] [place] [address], [id number], [place] tel:[phone] [facility] bilateral knees (chief complaint) Bilateral primary osteoarthritis of knee 4 Carrol Persaud. [address] [facility], [address], [id number], [place]. tel:[phone] Referring Provider: Cori Waite, [address] [facility] [address] [facility], [place], [address] . tel:[phone] [facility], [address] [address], [place], [place], [address], [place] tel:[phone] [facility] Unilateral primary osteoarthritis , left kneeUnilateral primary osteoarthritis , right knee 4 Carrol Persaud. [address] [facility], [place], [place], [address], [place]. tel:[phone] [facility], [address] [address], [place], [place], [address], [place] tel:[phone] [facility] janet knee (chief complaint) Bilateral primary osteoarthritis of knee 4 Carrol Persaud. [address] [facility], [address] [address], [place], [place], [address], [place]. tel:[phone] Referring Provider: Cori Waite, [address] [facility] [address] [facility], [place], [address] . tel:[phone] [facility], [address] [address], [place], [place], [address], [place] tel:[phone] [facility] Unilateral primary osteoarthritis , left kneeUnilateral primary osteoarthritis , right knee 4 Carrol Persaud. [address] [facility], [address] [address], [place], [place], [address], [place]. tel:[phone] [facility], [address] [address], [place], [address], [place] tel:[phone] [facility] janet knee (chief complaint) Bilateral primary osteoarthritis of knee 4 Carrol Persaud. [address] [facility], [address] [address], [place], [place], [address], [place]. tel:[phone] Referring Provider: Cori Meléndez A, [address] [facility] [address] [facility], [place], [address] . tel:[phone] Office/outpa tient visit,est, mod [facility], [address] [address], [place], [place], [address], [place] tel:[phone] [facility] Hammer toe right foot (chief complaint) Pain in right footOther acquired hammer toe of right foot Sep-0 3 Doser ADAL Gutierrez. [address] [facility], [address] [address], [place], [place], [address], [place]. tel:[phone] Referring Provider: Matt Gracia DPM A, [address] [place] [address], [place], [address] . tel:[phone] [facility], [address] [place] [address], [place], [place], [address], [place] tel:[phone] [facility] janet knee (chief complaint) Bilateral primary osteoarthritis of knee 3 Carrol Persaud. [address] [place] [address], [place], [place], [address], [place]. tel:[phone] Referring Provider: Cori Meléndez A, [address] [address], [place], [address] . tel:[phone] [facility], [address] [address], [place], [address], [place] tel:[phone] [facility] bilateral knees (chief complaint) Bilateral primary osteoarthritis of knee 3 Crarol Persaud. [address] [place] [address], [place], [place], [address], [place]. tel:[phone] Referring Provider: Cori Meléndez A, [address] [address], [place], [address] . tel:[phone] [facility], [address], [id number], [place] tel:[phone] [facility] Unilateral primary osteoarthritis , left kneeUnilateral primary osteoarthritis , right knee Ravi- 3 Carrol Persaud. [address] [facility], [address] [address], [place], [address], [place]. tel:[phone] [facility], [address] [place] [address], [place], [place], [address], [place] tel:[phone] [facility] bilateral knees (chief complaint) Bilateral primary osteoarthritis of knee Feb-0 3 Carrol Persaud. [address] [address], [place], [place], [address], [place]. tel:[phone] Referring Provider: Cori Waite, [address] [place] [address], [place], [address] . tel:[phone] [facility], [address] [place] [address], [id number], [place] tel:[phone] [facility] bilateral knees (chief complaint) Bilateral primary osteoarthritis of knee Aug- 2 Carrol Persaud. [facility] [address], [place], [place], [address], [place]. tel:[phone] Referring Provider: Cori Waite, [address] [place] [address], [place], [address] . tel:[phone] [facility], [address], [id number], [place] tel:[phone] [facility] Bilateral primary osteoarthritis of knee Aug-0 2 Carrol Persaud. [address] [place] [address], [place], [place], [address], [place]. tel:[phone] Office/outpa tient visit,est, mod [facility], [address] [place] [address], [place], [place], [address], [place] tel:[phone] [facility] bilat knees (chief complaint) Unilateral primary osteoarthritis , left kneeUnilateral primary osteoarthritis , right knee 2 Steffany Villagomez. [address] [facility], [address] [address], [place], [place], [address], [place]. tel:[phone] Referring Provider: Hernando Cerda, [address] [place] [address], [place], [address] . tel:[phone] [facility], [address] [address], [place], [address], [place] tel:[phone] [facility] Bilateral primary osteoarthritis of knee 2 Carrol Persaud. [facility] [address], [place], [address], [place]. tel:[phone] [facility], [address] [place] [address], [place], [place], [address], [place] tel:[phone] [facility] janet knee (chief complaint) Bilateral primary osteoarthritis of knee 1 Carrol Persaud. [address] [place] [address], [place], [place], [address], [place]. tel:[phone] Referring Provider: Cori Waite, [address] [place] [address], [place], [address] . tel:[phone] [facility], [address] [place] [address], [id number], [place] tel:[phone] [facility] Bilateral primary osteoarthritis of knee 1 Carrol Persaud. [address] [place] [address], [address] [address], [place], [place], [address], [place]. tel:[phone] [facility], [address], [id number], [place] tel:[phone] [facility] janet knee (chief complaint) Bilateral primary osteoarthritis of knee Fe 1 Carrol Persaud. [address] [facility], [facility] [address], [place], [place], [address], [place]. tel:[phone] Referring Provider: Cori Waite, [address] [facility] [address] [facility], [place], [address] . tel:[phone] [facility], [address] [address], [place], [address], [place] tel:[phone] [facility] Bilateral primary osteoarthritis of knee 1 Carrol Persaud. [address] [facility], [address] [address], [place], [place], [address], [place]. tel:[phone] [facility], [address] [address], [place], [place], [address], [place] tel:[phone] [facility] bilateral knees (chief complaint) Bilateral primary osteoarthritis of knee 0 Carrol Persaud. [address] [facility], [address] [address], [place], [place], [address], [place]. tel:[phone] Referring Provider: Hernando Cerda, [address] [address], [place], [address] . tel:[phone] [facility], [address], [id number], [place] tel:[phone] [facility] Bilateral primary osteoarthritis of knee 0 Carrol Persaud. [address] [facility], [address] [address], [place], [address], [place]. tel:[phone] [facility], [address] [address], [place], [address], [place] tel:[phone] [facility] bilat knees (chief complaint) Bilateral primary osteoarthritis of knee 1 201 9 Carrol Persaud. [address] [facility], [address] [address], [place], [place], [address], [place]. tel:[phone] Referring Provider: Hernando Cerda, [address] [facility] [address], [place], [address] . tel:[phone] [facility], [address] [facility] [address], [place], [place], [address], [place] tel:[phone] [facility] Unilateral primary osteoarthritis , right kneeUnilateral primary osteoarthritis , left knee 9 Carrol Persaud. [address] [facility], [address], [place], [place], [address], [place]. tel:[phone] [facility], [address] [address], [place], [place], [address], [place] tel:[phone] [facility] Kneepain (chief complaint) Bilateral primary osteoarthritis of knee Fe 9 Carrol Persaud. [address] [facility], [address] [facility], [place], [place], [address], [place]. tel:[phone] Referring Provider: Cori Meléndez A, [address] [facility] [address], [place], [address] . tel:[phone] [facility], [address] [address], [place], [address], [place] tel:[phone] [facility] Bilateral primary osteoarthritis of knee 9 Carrol Persaud. [address] [facility], [address], [place], [place], [address], [place]. tel:[phone] [facility], [address] [facility] [address], [place], [place], [address], [place] tel:[phone] [facility] bilateral knees (chief complaint) Bilateral primary osteoarthritis of knee 2 8 Carrol Persaud. [address] [facility], [address], [place], [place], [address], [place]. tel:[phone] Referring Provider: Cori Meléndez A, [address] [facility] [address], [place], [address] . tel:[phone] [facility], [address] [address], [place], [address], [place] tel:[phone] [facility] Bilateral primary osteoarthritis of knee Nov-2 8 Carrol Persaud. [address] [facility], [address] [address], [place], [place], [address], [place]. tel:[phone] [facility], [address] [address], [place], [address], [place] tel:[phone] [facility] bilateral knees (chief complaint) Bilateral primary osteoarthritis of knee 2 7 Carrol Persaud. [facility] [address], [place], [place], [address], [place]. tel:[phone] Referring Provider: Cori Waite, [address] [address], [place], [address] . tel:[phone] [facility], [address], [id number], [place] tel:[phone] [facility] Bilateral primary osteoarthritis of knee 0 7 Carrol Persaud. [address], [id number], [place]. tel:[phone] [facility], [address], [id number], [place] tel:[phone] [facility] bilateral knees (chief complaint) Bilateral primary osteoarthritis of knee 8- 7 Carrol Persaud. [address] [place] [address], [id number], [place]. tel:[phone] Referring Provider: Cori Waite, [address] [address], [place], [address] . tel:[phone] [facility], [address] [place], [id number], [place] tel:[phone] [facility] Bilateral primary osteoarthritis of knee 6 Carrol Persaud. [address] [facility], [address] [address], [place], [place], [address], [place]. tel:[phone] [facility], [address] [address], [place], [place], [address], [place] tel:[phone] [facility] bilateral knees (chief complaint) Bilateral primary osteoarthritis of knee Dec-0 6 Carrol Persaud. [address] [facility], [address] [address], [place], [place], [address], [place]. tel:[phone] Referring Provider: Cori Waite, [facility] [address], [place], [address] . tel:[phone] [facility], [address] [address], [place], [address], [place] tel:[phone] [facility] Bilateral primary osteoarthritis of knee Fe- 6 Steffany Villagomez. [address] [place] [address], [place], [place], [address], [place]. tel:[phone] [facility], [address] [address], [place], [address], [place] tel:[phone] [facility] bilateral knees (chief complaint) LOC PRIM OSTEOART-L/LEG 5 Carrol Persaud. [address] [facility], [address] [address], [place], [place], [address], [place]. tel:[phone] Referring Provider: Cori Waite, [address] [address], [place], [address] . tel:[phone] [facility], [address] [address], [place], [place], [address], [place] tel:[phone] [facility] Osteoarthrosis , localized, primary, involving lower leg Ravi- 6-201 5 Steffany Villagomez. [address] [facility], [address] [address], [place], [place], [address], [place]. tel:[phone] [facility], [address] [address], [place], [place], [address], [place] tel:[phone] [facility] Bilat knee (chief complaint) LOC PRIM OSTEOART-L/LEG Nov- 2-201 4 Carrol Persaud. [address] [facility], [address] [address], [place], [place], [address], [place]. tel:[phone] Referring Provider: Cori Waite, [address] [place] [address], [place], [address] . tel:[phone] [facility], [address] [place] [address], [place], [place], [address], [place] tel:[phone] [facility] LOC PRIM OSTEOART-L/LEG Jun-0 9-201 4 Steffany Villagomez. [address] [facility], [address] [address], [place], [place], [address], [place]. tel:[phone] [facility], [facility] [address], [place], [place], [address], [place] tel:[phone] [facility] bilateral knee pain (chief complaint) PAIN IN LIMBLOC PRIM OSTEOART-L/LEG JOINT PAIN-L/LEG Apr-0 8-201 4 Abeln Becky. [address] [place] [address], [address] [address], [place], [place], [address], [place]. tel:[phone] Referring Provider: Becky Verdin, [address] [place] [address], [place], [address] . tel:[phone] [facility], [facility] [address], [id number], [place] tel:[phone] [facility] bilateral knee pain (chief complaint) LOC PRIM OSTEOART-L/LEG Oct-0 3-201 3 No Information [facility], [address] [place] [address], [place], [place], [address], [place] tel:[phone] [facility] LOC PRIM OSTEOART-L/LEG May-0 3 Willis Asaf. [address] [facility], [address] [address], [place], [place], [address], [place]. tel:[phone] [facility], [address] [place] [address], [id number], [place] tel:[phone] [facility] bilateral knee pain (chief complaint) ARTHROPATHY NOS-L/LEG Nov- 3 No Information Referring Provider: Melvin Gu, [address] [place] [address], [address]. tel:[phone] [facility], [address] [place] [address], [id number], [place] tel:[phone] [facility] LOC PRIM OSTEOART-L/LEG May- 2 No Information Referring Provider: Melvin Gu, [address] [place] [address], [address]. tel:[phone] Office/outpa tient visit,[facility], [address] [place] [address], [place], [place], [address], [place] tel:[phone] [facility] DERANG LAT MENISCUS NOSDERANG MED MENISCUS NECLOC PRIM OSTEOART-L/LEG JOINT PAIN-L/LEG Apr- 2 Steffany Villagomez. [address] [facility], [address], [place], [place], [address], [place]. tel:[phone] Referring Provider: Melvin Gu, [address] [place] [address], [address]. tel:[phone] Office/outpa [facility]ient visit,[facility], [address], [id number], [place] tel:[phone] [facility] JOINT PAIN-L/LEGLOC PRIM OSTEOART-L/LEG TEAR MED MENISC KNEE-CUR 1 Steffany Villagomez. [address] [facility], [address], [place], [place], [address], [place]. tel:[phone] Referring Provider: Melvin Gu, [address] [place] [address], [address]. tel:[phone] Family History Family Member Type Diagnosis Age [...] Record Payers Payer name Insurance type Covered democrat ID Authoriza tibecky(s) [place] Part B MB [id number] [employer] Senior Supplemental Insurance [id number] Social History Type Description Quantity Date Captured [...]
== END 2025-03-11 07:14 | disposition home or self-care (01) ==
LOC: CHSLAB 07:14
PROVIDERS: PCP Nurse Practitioner Family; Visit Provider Nurse Practitioner Family
DX: J18.1 Lobar pneumonia, unspecified organism (principal)
CPT/HCPCS: 87070; 87205

== ENCOUNTER 2025-05-29 06:42 | Outpatient (CLI) | payer MEDICARE, SELFPAY ==
--- NOTE | ~2025-05-29 | XR_ITS ---
XR lumbar spine 2-3V Indication: M54.50 - Low back pain, unspecified Comparison: None Findings: Levoconvex scoliosis, moderate loss of vertebral height throughout. Grade 1 retrolisthesis of L2 on L3 with grade 1 anterolisthesis of L4 on L5. Moderate to severe loss of disc height throughout. Soft tissues unremarkable Impression: No acute abnormality. Reviewed, dictated and finalized at location A. Impression: No acute abnormality.
[2025-05-29 08:55] LABS: Add Urine Microscopic? YES; Appearance Urine Clear (Clear); Glucose Urine UA Negative (Negative); Leukocyte Esterase Ur Trace LEU/UL (Negative); Nitrate Urine Negative (Negative); Specific Grav Ur 1.025 (1.010-1.020)
== END 2025-05-29 06:43 | disposition home or self-care (01) ==
LOC: CHSLAB 06:44
PROVIDERS: PCP Nurse Practitioner Family; Visit Provider Nurse Practitioner Family
DX: M54.50 Low back pain, unspecified (principal); Z87.898 Personal history of other specified conditions
CPT/HCPCS: 72100; 81001

== ENCOUNTER 2025-07-03 07:09 | Outpatient (CLI) | payer MEDICARE, SELFPAY ==
--- OUTSIDE RECORDS SUMMARY | 2025-06-24 06:07 | XMS_ITS | Continuity of Care Document ---
Author Organization [facility] Address [address] [place] [address] Phone Care Team Providers Care Surgery Assistant Name Role Phone Cori Dunaway Unavailable Unavai [...] X-ray exam of both knees, standing Office/outpatient visit,[facility] 2010 Drain/inject major jointor bursa 2010 Depo Medrol Methylprednisolone 40 MG inj Advance Directives Directive Yes / No Effective Date File Name No Information Encounters Encounter Description Practice Location Reason(s) For Visit Diagnoses Date Provider Providers Copied on Encounter [facility], [address] [place] [address], [id number], [place] tel:[phone] [facility] No Information 5 Carrol Persaud. [facility] [address], [id number], [place]. tel:[phone] Office/outpa tient visit,est, mod [facility], [address], [id number], [place] tel:[phone] [facility] Bilateral knees (chief complaint) Bilateral primary osteoarthritis of knee 5 Carrol Persaud. [address], [id number], [place]. tel:[phone] Referring Provider: Cori Waite, [address] [address], [place], [address] . tel:[phone] [facility], [address] [address], [place], [place], [id number], [place] tel:[phone] [facility] bilateral knees (chief complaint) Bilateral primary osteoarthritis of knee 4 Carrol Persaud. [address] [facility] [address], [place], [place], [id number], [place]. tel:[phone] Referring Provider: Cori Waite, [address] [facility] [address] Formerly named [facility], [place], [address] . tel:[phone] [facility], [address] [address], [place], [place], [address], [place] tel:[phone] [facility] Unilateral primary osteoarthritis , left kneeUnilateral primary osteoarthritis , right knee 4 Carrol Persaud. [address] [address], [place], [place], [id number], [place]. tel:[phone] [facility], [address] [address], [place], [place], [id number], [place] tel:[phone] [facility] janet knee (chief complaint) Bilateral primary osteoarthritis of knee 4 Carrol Persaud. [address] [facility], [address], [id number], [place]. tel:[phone] Referring Provider: Cori Meléndez A, [address] [facility] [address] Formerly named [facility], [place], [address] . tel:[phone] [facility], [address], [id number], [place] tel:[phone] [facility] Unilateral primary osteoarthritis , left kneeUnilateral primary osteoarthritis , right knee 4 Carrol Persaud. [address] [facility], [address], [id number], [place]. tel:[phone] [facility], [address], [id number], [place] tel:[phone] [facility] janet knee (chief complaint) Bilateral primary osteoarthritis of knee 4 Carrol Persaud. [address] [address], [place], [place], [address], [place]. tel:[phone] Referring Provider: Cori Meléndez A, [address] [place] [address], [place], [address] . tel:[phone] Office/outpa tient visit,est, mod [facility], [address] [place] [address], [place], [place], [id number], [place] tel:[phone] [facility] Hammer toe right foot (chief complaint) Pain in right footOther acquired hammer toe of right foot Sep-0 3 Doser ADAL Gutierrez. [address] [place] [address], [place], [place], [address], [place]. tel:[phone] Referring Provider: Matt Gracia DPM A, [address] [place] [address], [place], [address] . tel:[phone] [facility], [address] [place] [address], [place], [place], [id number], [place] tel:[phone] [facility] janet knee (chief complaint) Bilateral primary osteoarthritis of knee 3 Carrol Persaud. [address] [place] [address], [place], [place], [id number], [place]. tel:[phone] Referring Provider: Cori Meléndez A, [address] [place] [address], [place], [address] . tel:[phone] [facility], [address] [place] [address], [id number], [place] tel:[phone] [facility] bilateral knees (chief complaint) Bilateral primary osteoarthritis of knee 3 Carrol Persaud. [address] [facility] [facility] [address], [place], [place], [id number], [place]. tel:[phone] Referring Provider: Cori Waite, [address] [facility] [address] Formerly named [facility], [place], [address] . tel:[phone] [facility], [address] [address], [place], [place], [id number], [place] tel:[phone] [facility] Unilateral primary osteoarthritis , left kneeUnilateral primary osteoarthritis , right knee Ravi- 3 Carrol Persaud. [address] [facility], [address] [address], [place], [place], [address], [place]. tel:[phone] [facility], [address] [address], [place], [place], [address], [place] tel:[phone] [facility] bilateral knees (chief complaint) Bilateral primary osteoarthritis of knee Oct-0 3 Carrol Persaud. [address] [facility], [address] [address], [place], [place], [address], [place]. tel:[phone] Referring Provider: Cori Waite, [address] [facility] [address] Formerly named [facility], [place], [address] . tel:[phone] [facility], [address] [address], [place], [place], [address], [place] tel:[phone] [facility] bilateral knees (chief complaint) Bilateral primary osteoarthritis of knee 2 Carrol Persaud. [address] [facility], [address] [address], [place], [place], [address], [place]. tel:[phone] Referring Provider: Cori Waite, [address] [facility] [address] Formerly named [facility], [place], [address] . tel:[phone] [facility], [address] [address], [place], [place], [address], [place] tel:[phone] [facility] Bilateral primary osteoarthritis of knee 2 Carrol Persaud. [address] [facility], [place], [place], [address], [place]. tel:[phone] Office/outpa tient visit,est, mod [facility], [address] [facility] [address], [place], [place], [id number], [place] tel:[phone] [facility] bilat knees (chief complaint) Unilateral primary osteoarthritis , left kneeUnilateral primary osteoarthritis , right knee 2 Steffany Villagomez. [address] [facility], Suite Formerly named [facility], [place], [place], [address], [place]. tel:[phone] Referring Provider: Hernando Cerda, [address] [facility] [address] Formerly named [facility], [place], [address] . tel:[phone] [facility], [address] [address], [place], [place], [id number], [place] tel:[phone] [facility] Bilateral primary osteoarthritis of knee 2 Carrol Persaud. [address] [facility], [address] [address], [place], [place], [address], [place]. tel:[phone] [facility], [address] [address], [place], [place], [address], [place] tel:[phone] [facility] janet knee (chief complaint) Bilateral primary osteoarthritis of knee 1 Carrol Persaud. [address] [facility] [address], [place], [place], [address], [place]. tel:[phone] Referring Provider: Cori Waite, [address] [facility] [address] Formerly named [facility], [place], [address] . tel:[phone] [facility], [address] [address], [place], [place], [address], [place] tel:[phone] [facility] Bilateral primary osteoarthritis of knee 1 Carrol Persaud. [address] [facility], [address] [address], [place], [place], [address], [place]. tel:[phone] [facility], [address] [address], [place], [place], [address], [place] tel:[phone] [facility] janet knee (chief complaint) Bilateral primary osteoarthritis of knee Feb-0 1 Carrol Persaud. [address] [address], [place], [place], [address], [place]. tel:[phone] Referring Provider: Cori Waite, [address] [address], [place], [address] . tel:[phone] [facility], [address] [address], [place], [place], [address], [place] tel:[phone] [facility] Bilateral primary osteoarthritis of knee 1 Carrol Presaud. [address] [facility], [address] [address], [place], [place], [address], [place]. tel:[phone] [facility], [address] [address], [place], [place], [address], [place] tel:[phone] [facility] bilateral knees (chief complaint) Bilateral primary osteoarthritis of knee January- 0 Carrol Persaud. [address], [id number], [place]. tel:[phone] Referring Provider: Hernando Cerda, [address] [address], [place], [address] . tel:[phone] [facility], [address] [address], [place], [place], [address], [place] tel:[phone] [facility] Bilateral primary osteoarthritis of knee Dec- 0 Carrol Persaud. [address] [facility], [address], [id number], [place]. tel:[phone] [facility], [address] [address], [place], [place], [address], [place] tel:[phone] [facility] bilat knees (chief complaint) Bilateral primary osteoarthritis of knee 9 Carrol Persaud. [address] [facility], [address] [address], [place], [place], [address], [place]. tel:[phone] Referring Provider: Hernando Cerda, [address] [facility] [address] Formerly named [facility], [place], [address] . tel:[phone] [facility], [address] [address], [place], [place], [address], [place] tel:[phone] [facility] Unilateral primary osteoarthritis , right kneeUnilateral primary osteoarthritis , left knee 9 Carrol Persaud. [address] [facility], [address] [address], [place], [place], [address], [place]. tel:[phone] [facility], [address] [address], [place], [place], [address], [place] tel:[phone] [facility] Kneepain (chief complaint) Bilateral primary osteoarthritis of knee 9 Carrol Persaud. [address] [facility], [address] [address], [place], [place], [address], [place]. tel:[phone] Referring Provider: Cori Waite, [address] [facility] [address] Formerly named [facility], [place], [address] . tel:[phone] [facility], [address] [address], [place], [place], [address], [place] tel:[phone] [facility] Bilateral primary osteoarthritis of knee 9 Carrol Persaud. [address] [facility], [address] [address], [place], [place], [address], [place]. tel:[phone] [facility], [address] [address], [place], [place], [address], [place] tel:[phone] [facility] bilateral knees (chief complaint) Bilateral primary osteoarthritis of knee 2- 8 Carrol Persaud. [address] [facility], [address] Formerly named [facility], [place], [place], [address], [place]. tel:[phone] Referring Provider: Cori Waite, [address] [facility] [address] Formerly named [facility], [place], [address] . tel:[phone] [facility], [address] [address], [place], [place], [address], [place] tel:[phone] [facility] Bilateral primary osteoarthritis of knee 8 Carrol Persaud. [address] [facility], [address] [address], [place], [place], [address], [place]. tel:[phone] [facility], [address] [address], [place], [place], [address], [place] tel:[phone] [facility] bilateral knees (chief complaint) Bilateral primary osteoarthritis of knee 2 5 7 Carrol Persaud. [address] [facility], Suite Formerly named [facility], [place], [place], [address], [place]. tel:[phone] Referring Provider: Cori Waite, [address] [facility] [address] Formerly named [facility], [place], [address] . tel:[phone] [facility], [address], [id number], [place] tel:[phone] [facility] Bilateral primary osteoarthritis of knee 0 4- 7 Carrol Persaud. [address] [facility], [address] Formerly named [facility], [place], [place], [address], [place]. tel:[phone] [facility], [address], [id number], [place] tel:[phone] [facility] bilateral knees (chief complaint) Bilateral primary osteoarthritis of knee 8-201 7 Carrol Persaud. [address] [facility], [address] [address], [place], [place], [address], [place]. tel:[phone] Referring Provider: Cori Waite, [address] [address], [place], [address] . tel:[phone] [facility], [address] [address], [place], [place], [address], [place] tel:[phone] [facility] Bilateral primary osteoarthritis of knee 6 Carrol Persaud. [address] [facility], [address] [address], [place], [place], [address], [place]. tel:[phone] [facility], [address] [address], [place], [place], [address], [place] tel:[phone] [facility] bilateral knees (chief complaint) Bilateral primary osteoarthritis of knee 6 Carrol Persaud. [address] [facility], [address] [address], [place], [place], [address], [place]. tel:[phone] Referring Provider: Cori Waite, [address] [address], [place], [address] . tel:[phone] [facility], [address] [address], [place], [place], [address], [place] tel:[phone] [facility] Bilateral primary osteoarthritis of knee Fe-2 6 Steffany Villagomez. [address] [facility], [address] [address], [place], [place], [address], [place]. tel:[phone] [facility], [address] [address], [place], [place], [address], [place] tel:[phone] [facility] bilateral knees (chief complaint) LOC PRIM OSTEOART-L/LEG 5 Carrol Persaud. [address] [facility], [address] [address], [place], [place], [address], [place]. tel:[phone] Referring Provider: Cori Waite, [address] [facility] [address] Formerly named [facility], [place], [address] . tel:[phone] [facility], [address] [address], [place], [place], [address], [place] tel:[phone] [facility] Osteoarthrosis , localized, primary, involving lower leg 5 Steffany Hernando. [address] [facility], [address] Formerly named [facility], [place], [place], [address], [place]. tel:[phone] [facility], [address] [address], [place], [place], [address], [place] tel:[phone] [facility] Bilat knee (chief complaint) LOC PRIM OSTEOART-L/LEG 2 4 Carrol Persaud. [address] [place] [address], [address] [address], [place], [place], [address], [place]. tel:[phone] Referring Provider: Cori Waite, [address] [facility] [address] Formerly named [facility], [place], [address] . tel:[phone] [facility], [address] [address], [place], [place], [address], [place] tel:[phone] [facility] LOC PRIM OSTEOART-L/LEG Oct-0 9-201 4 Steffany Hernando. [address] [place] [address], [address] [address], [place], [place], [address], [place]. tel:[phone] [facility], [address] [address], [place], [place], [address], [place] tel:[phone] [facility] bilateral knee pain (chief complaint) PAIN IN LIMBLOC PRIM OSTEOART-L/LEG JOINT PAIN-L/LEG Apr-0 8-201 4 Abeln Becky. [address] [facility], [address] [address], [place], [place], [address], [place]. tel:[phone] Referring Provider: Becky Verdni, [address] [facility] [address] Formerly named [facility], [place], [address] . tel:[phone] [facility], [address] [address], [place], [place], [address], [place] tel:[phone] [facility] bilateral knee pain (chief complaint) LOC PRIM OSTEOART-L/LEG Oct-0 3-201 3 No Information [facility], [address] [address], [place], [place], [address], [place] tel:[phone] [facility] LOC PRIM OSTEOART-L/LEG Sep-0 9-201 3 Willis Ron. [address] [facility], [address] [address], [place], [place], [address], [place]. tel:[phone] [facility], [address] [address], [place], [place], [address], [place] tel:[phone] [facility] bilateral knee pain (chief complaint) ARTHROPATHY NOS-L/LEG Nov-2 8 3 No Information Referring Provider: Melvin Gu, [address] [place] [address], [address]. tel:[phone] [facility], [address] [address], [place], [place], [address], [place] tel:[phone] [facility] LOC PRIM OSTEOART-L/LEG Sep-1 2 No Information Referring Provider: Melvin Gu, [address] [place] [address], [address]. tel:[phone] Office/outpa tient visit,est, low [facility], [address] [address], [place], [place], [address], [place] tel:[phone] [facility] DERANG LAT MENISCUS NOSDERANG MED MENISCUS NECLOC PRIM OSTEOART-L/LEG JOINT PAIN-L/LEG Aug-2 2 2 Steffany Villagomez. [address] [facility], [address] [address], [place], [place], [address], [place]. tel:[phone] Referring Provider: Melvin Gu, [address] [place] [address], [address]. tel:[phone] Office/outpa tient visit,new, mod [facility], [address] [facility], [place], [place], [address], tel:[phone] [facility] JOINT PAIN-L/LEGLOC PRIM OSTEOART-L/LEG TEAR MED MENISC KNEE-CUR 1 Steffany Villagomez. [address] [facility], [address], [place], [place], [address], [place]. tel:[phone] Referring Provider: Melvin Gu, [address] [place], [address]. tel:[phone] Family History Family Member Type Diagnosis Age [...] Record Payers Payer name Insurance type Covered green party ID Authoriza tion(s) [place] Part B MB [id number] [employer] Senior Supplemental Insurance [place] [id number] Social History Type Description Quantity Date Captured Comments Alcohol Use Details Unknown Caffeine Use Details Unknown Tobacco Use Status No Information Smoking Status No Information Sex Female Gender Identity Female Chief Complaint And Reason For Visit No Information Reason For Referral Reason For Referral No Information Plan Of Treatment Date Type Action Status Referral Ordered: X-ray exam foot, minimum 3 views RT ordered Referral Ordered: Other Bilateral knee ordered Referral Ordered: X-ray exam knee, 1 or 2 views Bilateral ordered Referral Ordered: X-ray exam both knees, standing ordered Referral Ordered: Synvisc One Bilateral knee Appointment date/timeframe: 06/13/2013 ordered Appointment Magui Baker BOOKED Patient Education Body Mass Index: After Your [...] as prescribe d Assessments Type Assessment Date No Information Patient Care Teams Name Effective Dates (start - stop) Status Members No Information
--- NOTE | ~2025-07-03 | MR_ITS ---
MR lumbar spine wo con INDICATION: M54.50 - Low back pain, unspecified . COMPARISON: None. TECHNIQUE: Axial and sagittal T1-T2 weighted images along with coronal T2, sagittal IR and axial proton density sequences of the lumbar spine were obtained without infusion of gadolinium. FINDINGS: [place] is made of five lumbar vertebrae. There is grade 1 anterolisthesis of L4 on L5. There are diminished disc signal and disc height throughout the lumbar spine consistent with degenerative disc desiccation. No intrathecal mass is seen. There is fluid signal within the endplate at L1-L2 may be related to degenerative disc disease. The conus medullaris terminates at the normal level. L1-L2: There is disc bulging causing severe narrowing of the right lateral recess and moderate right neural foraminal narrowing. There is moderate to severe narrowing of the left lateral recess and moderate left neural foraminal narrowing. There is a moderate central canal narrowing. L2-L3: There is disc bulging with facet joint arthropathy resulting in moderate to severe narrowing of the lateral recesses bilaterally. There are moderate bilateral neuroforaminal narrowing and moderate central canal narrowing. L3-L4: There is disc bulging with facet joint arthropathy resulting in moderate narrowing of the lateral recesses bilaterally and mild narrowing of the neural foramen bilaterally. There is moderate central canal narrowing. L4-L5: There is disc bulging causing moderate to severe narrowing of the lateral recesses and neural foramen bilaterally. There are moderate central canal narrowing. L5-S1: There is disc bulging resulting in mild neural foraminal narrowing and mild central canal narrowing. IMPRESSION: Moderate to severe degenerative changes with disc bulging, facet joint arthropathy resulting in moderate to severe narrowing of the lateral recesses, neural foramen and central canal as well. There is no compression fracture or abnormal cord signal intensity. Reviewed, dictated and finalized at location S. IMPRESSION: Moderate to severe degenerative changes with disc bulging, facet joint arthropa thy resulting in moderate to severe narrowing of the lateral recesses, neural f oramen and central canal as well. There is no compression fracture or abnormal cord signal intensity.
--- OUTSIDE RECORDS SUMMARY | 2025-07-03 07:11 | XMS_ITS ---
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
--- OUTSIDE RECORDS SUMMARY | 2025-07-03 07:11 | XMS_ITS | Clinical Summary ---
Author Organization [facility] Address [address] [place] [address] Care Team Providers Care Public Relations Studies Director Name Role Phone Maci Lofton MD Unavailable [phone] Becky Conroy Primary Care Provider [phone] Allergies No known active allergies Medications aspirin [...] Problem Noted Date Diagnosed Date Atherosclerosis of [place] co ronary artery of [place] heart without angina pectoris 03/04/2016 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 Overview (03/04/2016): March 2003 Coronary artery disease Benign essential HTN Dyslipidemia Resolved Problems Problem Noted Date Diagnosed Date Resolved Date Preop cardiovascular exam 06/28/2023 Encounters Date Type Department Care Team Description 05/07/2025 Telephone [facility] [address] [place] [address] Grace Pedersen MD Reschedule from Last 3 Months Family History Medical History Relation Comments Heart Attack Brother 1 Stent Cardiac Brother 1 Stroke Brother 1 Hypertension Father Stroke Father Hypertension Mother Stroke Mother Heart Attack Sister 1 Stroke Sister 1 Relation Status Comments Brother 1 Alive [place] at age 60 Brother 2 Father (Age 60s) Maternal Grandfather Maternal Grandmother Mother (Age 70s) Paternal Grandfather Paternal Grandmother Sister 1 [place], stroke at ag e 60 Sister 2 [...] Industry Job Start Date Job End Date 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 Not on file Not on file Not on file Last Filed Vital Signs Vital Sign Reading Time Taken Comments Blood Pressure 128/76 07/15/2024 10:33 AM KNOWLEDGE ARCHITECT Pulse 67 07/15/2024 10:33 AM KNOWLEDGE ARCHITECT Temperature - - Respiratory Rate 16 07/15/2024 10:33 AM KNOWLEDGE ARCHITECT Oxygen Saturation - - Inhaled Oxygen Concentration - - Weight 68.6 kg (151 lb 3.2 oz) 07/15/2024 10:33 AM KNOWLEDGE ARCHITECT Height 160 cm (5' 3) 07/15/2024 10:33 AM KNOWLEDGE ARCHITECT Body Mass Index 26.78 07/15/2024 10:33 AM KNOWLEDGE ARCHITECT Plan of Treatment Upcoming Encounters Date Type Department Care Team (Late st Contact Info) Description 09/19/2025 9:45 AM KNOWLEDGE ARCHITECT Office Visit [facility] [address] [place] [address] Grace Pedersen MD [address] [place] [address] Health Maintenance Due Date Last Done Comments DTaP, Tdap and Td Vaccines ( 1 - Tdap) 1964 Annual Medicare Wellness Visit 2008 Dexa Scan (General) 2008 RSV Immunization or 60+ Years (1 - 1-dose 75+ series) 2018 Pneumococcal Vaccine: 50+ Years (2 of 2 - PCV) 03/11/2019 03/11/2018 COVID-19 Vaccine (3 - 2024-2 6 season) 2025 10/05/2020, 09/07/2020 Influenza Adult (#1) 2025 03/11/2018 Zoster Vaccines Completed 02/02/2023, 10/04/2022, 07/04/2015 Hepatitis A Vaccines Aged Out No long er eligible based on patient's age to complete this topic Meningococcal B Vaccine Aged Out No l onger eligible based on patient's age to complete this topic Meningococcal Vaccine Aged Out No curly denia eligible based on patient's age to complete this topic RSV Immunizations Under 20 Months Aged Out No longer eligible b ased on patient's age to complete this topic Insurance MEDICARE MEDICARE AETNA Care Teams Public Relations Studies Director Relationship Specialty Start Date End Date Becky Conroy FNP [address] [place] [address] PCP - General NURSE PRACTITIONER 02/04/20 Maci Lofton MD CARDIOVASCULAR DISEASE 03/09/16
--- OUTSIDE RECORDS SUMMARY | 2025-07-03 07:12 | XMS_ITS | Encounter Summary ---
Author Organization [facility] Address [address] [place] [address] Phone Care Team Providers Care Fretted Instruments Inspector Name Role Phone Becky Conroy NP Primary Care Provider [phone] Jose Chairez MD PhD Unavailable [phone] Evelin Lofton MD Unavailable [phone] Encounter Details Date Type Department Care Team [...] on file Legal Sex Female 1:54 AM CHIEF JAILER Gender Identity Not on file Sexual Orientation [...] on filedocumented in this encounter Care Teams Fretted Instruments Inspector Relationship Specialty Start Date End Date Becky Conroy HI RANGER OPERATOR [address] [place] [address] PCP - General Nurse Practitioner 07/06/23 Jose Chairez MD PhD [address] [facility] [address] [place], [place] [id number] Medical Oncologist/Corrections Specialist Medical Oncology 08/14/23 Evelin Lofton MD [address] [place] [address] Referring Physician Cardiovascular Disease 08/14/23 documented as of this encounter
--- OUTSIDE RECORDS SUMMARY | 2025-07-03 07:12 | XMS_ITS | Encounter Summary ---
Author Organization [facility] Address [address] [place] [address] Care Team Providers Care Special Events Driver Name Role Phone Cory Castro MD Primary Care Provider Maci Green MD Unavailable [phone] Maci Lofton MD Unavailable [phone] Becky Conroy Primary Care Provider [phone] Encounter Details Date Type Department Care Team (Late Contact Info) Description 04/18/2017 Abstract [facility] [address] [place] [address] Maci Lofton MD [address] [facility], [place], [address] [place] [address] Social History Tobacco Use Types [...] Industry Job Start Date Job End Date 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, [facility] [address] [place] [address] PCP - Jen - MSSP Attributed Provider 09/11/15 05/29/19 Becky Conroy, [place] [address] [place], [place] [id number] PCP - General NURSE PRACTITIONER 02/04/20 Maci Lofton MD CARDIOVASCULAR DISEASE 03/09/16 documented as of this encounter
--- OUTSIDE RECORDS SUMMARY | 2025-07-03 07:12 | XMS_ITS | Encounter Summary ---
Author Organization [facility] Address [address] [place] [address] Care Team Providers Care Asphalt Patcher Name Role Phone Cory Castro MD Primary Care Provider Maci Green MD Unavailable [phone] Maci Lofton MD Unavailable [phone] Becky ConroyP Primary Care Provider [phone] Encounter Details Date Type Department Care Team (Late st Contact Info) Description 03/07/2016 Abstract [facility] [address] [place] [address] Maci Lofton MD [address] [facility] [place], [address] [place] [address] Social History Tobacco Use Types [...] Industry Job 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 Job 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 Not on file Not on file Not on file documented as of this encounter Plan of Treatment Upcoming Encounters Date Type Department Care Team (Late st Contact Info) Description 09/19/2025 9:45 AM ELECTROTHERAPIST [facility] [address] [place] [address] Grace Pedersen MD [address] [place], [place] [id number] documented as of this encounter Procedures Procedure [...] on filedocumented in this encounter Care Teams Asphalt Patcher Relationship Specialty Start Date End Date Cory Castro MD PCP - General SURGERY 03/09/16 02/03/20 Maci Lofton MD [address], [address] [place] [address] PCP - Jen - MSSP Attributed Provider 09/11/15 05/29/19 Becky Conroy FNP [address] [place] [address] PCP - General NURSE PRACTITIONER 02/04/20 Maci Lofton MD CARDIOVASCULAR DISEASE 03/09/16 documented as of this encounter
--- OUTSIDE RECORDS SUMMARY | 2025-07-03 07:12 | XMS_ITS | Encounter Summary ---
Author Organization [facility] Address [address] [place] [address] Care Team Providers Care Electrical Unit Rebuilder Name Role Phone Cory Castro MD Primary Care Provider Maci Green MD Unavailable [phone] Maci Lofton MD Unavailable [phone] Becky ConroyP Primary Care Provider [phone] Encounter Details Date Type Department Care Team (Late st Contact Info) Description 12/24/2014 Abstract [facility] [address] [place] [address] Maci Lofton MD [address] [facility], [address] [place] [address] Social History Tobacco Use Types [...] Industry 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 on file Not on file Not on file documented as of this encounter Plan of Treatment Upcoming Encounters Date Type Department Care Team (Late st Contact Info) Description 09/19/2025 9:45 AM ASSISTANT SURVEYOR [facility] [address] [place] [address] Grace Pedersen MD [address] [place] [address] documented as of this encounter Visit Diagnoses Not on filedocumented in this encounter Care Teams Electrical Unit Rebuilder Relationship Specialty Start Date End Date Cory Castro MD PCP - General SURGERY 03/09/16 02/03/20 Maci Lofton MD [address] [facility] [address] [place] [address] PCP - Jen - MSSP Attributed Provider 09/11/15 05/29/19 Becky Conroy FNP [address] [place], [place] [id number] PCP - General NURSE PRACTITIONER 02/04/20 Maci Lofton MD CARDIOVASCULAR DISEASE 03/09/16 documented as of this encounter
--- OUTSIDE RECORDS SUMMARY | 2025-07-03 07:13 | XMS_ITS | Clinical Summary ---
Author Organization [facility] Address [address] [place] [address] Care Team Providers Care Superintendent Operations Division Name Role Phone Becky Conroy NP Primary Care Provider [phone] Jose Chairez MD PhD Unavailable [phone] Evelin Lofton MD Unavailable [phone] Allergies No known active allergies Medications clopidogreL [...] Take 1 each by mouth daily Active cyclobenzaprine (FLEXERIL) 10 mg tablet TAKE 1 TABLET BY MOUTH AT BEDTIME NEEDED FOR MUSCLE SPASM 5 Active fluconazole (DIFLUCAN) 150 mg tablet TAKE 1 TABLET TODAY, TAKE SECOND TABLET IN 3 DAYS. 5 Active triamcinolone (KENALOG) 0.1 % cream APPLY TO AFFECTED AREA TWICE A DAY 80 g 3 5 Active Active Problems Problem Noted Date Diagnosed Date Metastatic malignant melanoma 10/11/2023 Metastatic melanoma 08/31/2023 Pain in right foot 08/24/2023 Benign essential HTN 07/18/2023 Dyslipidemia 07/18/2023 Malignant melanoma of unknown origin 07/18/2023 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 09/28/2016 Atherosclerosis of [place] co ronary artery of [place] heart without angina pectoris 03/04/2016 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 Overview (07/18/2023): March 2003 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 Encounters Date Type Department Care Team Description 07/01/2025 Documentation [facility] Medicine Oncology [address] [place] [address] Julisa León RN 06/30/2025 Telephone [facility] [address] [place] [phone] Asya Giles RN 05/06/2025 1:15 PM CDT Office Visit [facility] [address] [place] [phone] Jose Chairez MD PhD Malignant melanoma of unknown origin (HCC); 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); Melanoma of axilla (HCC) 05/06/2025 12:45 PM CDT Lab [facility] [address] [place] [address] Malignant melanoma of unknown origin (HCC); 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); Melanoma of axilla (HCC) 05/05/2025 10:23 AM CDT - 05/05/2025 11:59 PM CDT Hospital Encounter [facility] [address] [place] [address] Discharge Disposition: Discharge to home or self care 05/05/2025 10:22 AM CDT - 05/05/2025 11:59 PM CDT Hospital Encounter [facility] [address] [place] [address] Malignant melanoma of unknown origin (HCC); 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); Melanoma of axilla (HCC) Discharge Disposition: Discharge to home or self care 04/24/2025 Orders Only [facility] Medicine Pathology Outreach [address] [place] [address] Unknown, Notinfile from Last 3 Months Immunizations Immunization Administration [...] on file Legal Sex 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 Gender Identity Not on file Sexual Orientation Not on file Obstetrics History Last Filed Vital Signs Vital Sign Reading Time Taken Comments Blood Pressure 155/74 05/06/2025 1:33 PM CDT Pulse 79 05/06/2025 1:33 PM CDT Temperature 36.9 C (98.5 F) 05/06/2025 1:33 PM CDT Respiratory Rate 16 05/06/2025 1:33 PM CDT Oxygen Saturation 96% 05/06/2025 1:33 PM CDT Inhaled Oxygen Concentration - - Weight 68.9 kg (152 lb) 05/06/2025 1:33 PM CDT Height 160 cm (5' 3) 11/19/2024 12:07 PM CDT Body Mass Index 26.93 11/19/2024 12:07 PM CDT Plan of Treatment Health Maintenance Due Date Last Done Comments Depression Screening 1945 Osteoporosis Screening-Bone Density Scan 1945 DTaP/Tdap/Td Vaccine (1 - Tdap) 1954 Hepatitis B Screening 1961 Well Visit 65+ 2008 Pneumococcal vaccine 65+ (2 of 2 - PCV) 03/11/2019 03/11/2018 Fall Risk Assessment 11/22/2024 11/23/2023 Covid-19 Vaccine (2024-2 6 season) 2025 08/18/2023, 06/24/2022, 01/03/2022, Additional history exists Influenza Vaccine (#1) 2025 , 06/22/2021, 03/11/2018 Zoster Vaccine Completed 02/02/2023, 09/12, 07/04/2015 Medical Devices Implanted Type Area [employer]ing Center Manager Device Identifier Shelf Expiration Date Model / Serial / Lot Cardiac Stent X 1 N/A: Heart Procedures Procedure Name Priority Date/Time Associated Diagnosis Comments EGFR Routine 05/06/2025 11:28 AM CDT Malignant melanoma of unknown origin (HCC) 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) DIFFERENTIAL AUTO Routine 05/06/2025 11: 28 AM CDT Malignant melanoma of unknown origin (HCC) 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) COMPREHENSIVE METABOLIC PANEL Routine 05/06/2025 11:28 AM CDT Malignant melanoma of unknown origin (HCC) 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) LACTATE DEHYDROGENASE Routine 05/06/2025 11:28 AM CDT Malignant melanoma of unknown origin (HCC) 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) CBC WITH AUTO DIFFERENTIAL Routine 05/06/2025 11:28 AM CDT Malignant melanoma of unknown origin (HCC) 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 73 [...] interpretive data was last reviewed 2021. Blood 05/06/2025 11:2 8 AM CDT 05/06/2025 11:28 AM CDT us Daryl Glasgow NP LAB BLOOD ORDERABLES Valencia l Result [facility] [place] [address] * (ABNORMAL) Differential, auto (05/06/2025 11:28 AM CDT) Neutrophil abs 5.72 1.50 - 6.50 K/cumm Comment:Testing performed by : [facility], [address] [facility] [address] Imm gran abs 0.03 0.00 - 0.10 K/cumm [facility] Lymphocyte abs 2.57 0.80 - 3.30 K/cumm [facility] Monocyte abs 0.84(H) 0.20 - 0.80 K/cumm [facility] Eosinophil abs 0.22 0.00 - 0.50 K/cumm [facility] Basophil abs 0.06 0.00 - 0.10 K/cumm [facility] Neutrophil pct 60.7 % [facility] Comment: Interpretive [...] was last revised on 2017. Lymphocyte pct 27.2 % [facility] Comment: Interpretive Data Percent cell count reference ranges are not reported, since discordance with absolute values may lead to misinterpretation of CBC data. Current Interpretive Data was last revised on 2017. Monocyte pct 8.9 % [facility] Comment: Interpretive Data Percent cell count reference ranges are not reported, since discordance with absolute values may lead to misinterpretation of CBC data. Current Interpretive Data was last revised on 2017. Eosinophil pct 2.3 % [facility] Comment: Interpretive Data Percent cell count reference ranges are not reported, since discordance with absolute values may lead to misinterpretation of CBC data. Current Interpretive Data was last revised on 2017. Basophil pct 0.6 % [facility] Comment: Interpretive Data Percent cell count reference ranges are not reported, since discordance with absolute values may lead to misinterpretation of CBC data. Current Interpretive Data was last revised on 2017. Blood 05/06/2025 11:2 8 AM CDT 05/06/2025 11:28 AM CDT Daryl Glasgow NP LAB BLOOD ORDERABLES Valencia l Result Performing Organization Address [facility] de Phone Number [facility] [place] [address] * Thyroid Function [place] (05/06/2025 11:28 AM CDT) TSH 0.72 0.30 - 4.20 mcIUnit/mL Blood 05/06/2025 11:2 8 AM CDT 05/06/2025 12:50 PM CDT Daryl Glasgow NP LAB BLOOD ORDERABLES Valencia l Result Performing Organization Address [facility] de Phone Number [facility] [place] [address] * CBC with auto differential (05/06/2025 11:28 AM CDT) Pathologist [facility] WBC 9.44 3.80 - 9.90 K/cumm Comment:Testing performed by : [address] [address] Hgb 14.5 11.9 - 15.5 g/dL [facility] Comment:Testing performed by : [address] [address] Hct 42.1 35.6 - 45.5 % [facility] Comment:Testing performed by : [address] [address] Plt 230 150 - 400 K/cumm [facility] Comment:Testing performed by : [address] [address] MPV 9.7 9.1 - 12.3 fL [facility] RBC 4.87 3.90 - 5.20 M/cumm [facility] MCV 86.4 81.3 - 96.4 fL [facility] MCH 29.8 27.1 - 33.3 pg [facility] MCHC 34.4 32.3 - 35.7 g/dL [facility] RDW CV 13.0 11.1 - 14.9 % [facility] RDW SD 40.7 35.7 - 48.1 fL [facility] NRBC abs 0.00 0.00 - 0.01 K/cumm [facility] ANC Prelim 5.72 1.50 - 6.50 K/cumm [facility] Comment: Interpretive Data The rapid ANC is a preliminary automated count and may vary from the final ANC (Neut Abs) reported in the WBC differential that follows. Current interpretive data was last revised 2024. Blood 05/06/2025 11:2 8 AM CDT 05/06/2025 11:28 AM CDT Daryl Glasgow FOLDED CLOTH TAPER LAB BLOOD ORDERABLES Valencia l Result Performing Organization Address City/[facility]/ZIP Co de Phone Number [facility] Department [place] [address] * Lactate dehydrogenase (LD) (05/06/2025 11:28 AM CDT) Pathologist [facility] Lactate dehydrogenase (LDH) 192 100 - 250 Units/L Comment:Testing performed by : [facility], [address] [place] [address] Blood 05/06/2025 11:2 8 AM CDT 05/06/2025 11:28 AM CDT Daryl Glasgow FOLDED CLOTH TAPER LAB BLOOD ORDERABLES Valencia l Result [facility] [place] [address] * (ABNORMAL) Comprehensive metabolic panel (05/06/2025 11:28 AM CDT) Pathologist [facility] Sodium 141 135 - 145 mmol/L Comment:Testing performed by : [facility], [address] [facility] [address] Potassium, pl 3.4 3.3 - 4.9 mmol/L [facility] Chloride 102 97 - 110 mmol/L [facility] CO2 26 22 - 32 mmol/L [facility] Anion gap 13 2 - 15 mmol/L [facility] BUN 22 6 - 25 mg/dL [facility] Creatinine 0.69 0.60 - 1.10 mg/dL [facility] Glucose 105 70 - 199 mg/dL [facility] Comment: Interpretive Data Fasting glucose >/= [...] 2022. Calcium 10.4(H) 8.5 - 10.3 mg/dL [facility] Bilirubin, total 0.5 0.1 - 1.2 mg/dL [facility] Protein, pl 7.8 6.5 - 8.5 g/dL [facility] Albumin 4.5 3.5 - 5.0 g/dL [facility] Alk phos 54 40 - 130 Units/L [facility] ALT 17 7 - 45 Units/L [facility] AST 23 10 - 45 Units/L [facility] Blood 05/06/2025 11:2 8 AM CDT 05/06/2025 11:28 AM CDT Daryl Glasgow NP LAB BLOOD ORDERABLES Valencia valadez Result [facility] Department [place] [address] * PET/CT FDG Skull to Thigh (05/05/2025 12:12 PM CDT) Anatomical Region Laterality Modality N/A Positron Emissio n Tomography (PET) 05/05/2025 1:58 PM CDT Impressions 05/05/2025 2:26 PM CDT 1. No evidence of recurrent or metastatic disease. 2. Evolving geographic consolidation and groundglass opacities seen throughout both lungs with decreased extent, uptake, and severity representing improving immunotherapy related pneumonitis. Dictated by: Tati Lorenzo M.D. The radiology attending physician has personally reviewed this study, and had reviewed and/or edited this written report and agrees with it. Electronically signed by: Lorie Gil MD, Ph.D Narrative 05/05/2025 2:26 PM CDT EXAMINATION: TUMOR FDG-PET/CT IMAGING DATE OF STUDY: 05/05/2025 SCANNER: [facility] RADIOPHARMACEUTICAL: 17.18 mCi F-18 Fluorodeoxyglucose (FDG) i.v. 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 The study is requested for restaging after completion of therapy. Subsequent treatment strategy. TECHNIQUE: The patient's fasting blood glucose level, measured by glucometer before injection of FDG, was 83mg/dL. After intravenous administration of FDG, noncontrast CT images were obtained for attenuation correction and for fusion with emission PET images to allow for anatomical localization of PET findings. Emission PET images were then obtained. The study was interpreted on the Panna workstation. The mean liver SUV (reported for quality improvement coordinator (rn) purposes) is 2.7 The total scanned area was skull vertex to knees. Images of the body were obtained starting 57 minutes after injection of tracer. All reported SUVs are maximum SUVs, unless otherwise specified. COMPARISON: Multiple prior PET CTs, most recently 02/10/2025 DESCRIPTORS OF LESION FDG AVIDITY: Minimal: <= blood pool Mild: > blood pool and <= liver Moderate: > liver and <= 2x SUVmax liver Moderate to marked: >2x SUVmax liver and <= 3x SUVmax liver Marked: > 3x SUVmax liver FINDINGS: Evolving geographic areas of consolidation and groundglass throughout both lungs with decreased extent, uptake, and severity. No suspicious FDG uptake identified. No evidence of local recurrence or new metastatic disease. Degenerative uptake along the anterior C1 arch. Additional CT findings: Old granulomatous disease. Prior cholecystectomy. Right upper pole renal cyst. Hysterectomy. Right maxillary sinus mucosal retention cyst. Evolving geographic areas of consolidation and groundglass seen in both lungs. Procedure Note Lorie Larios MD PhD - 05/05/2025 EXAMINATION: TUMOR FDG-PET/CT IMAGING DATE OF STUDY: 05/05/2025 SCANNER: [facility] RADIOPHARMACEUTICAL: 17.18 mCi F-18 Fluorodeoxyglucose (FDG) i.v. 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 The study is requested for restaging after completion of therapy. Subsequent treatment strategy. TECHNIQUE: The patient's fasting blood glucose level, measured by glucometer before injection of FDG, was 83mg/dL. After intravenous administration of FDG, noncontrast CT images were obtained for attenuation correction and for fusion with emission PET images to allow for anatomical localization of PET findings. Emission PET images were then obtained. The study was interpreted on the Panna workstation. The mean liver SUV (reported for quality improvement coordinator (rn) purposes) is 2.7 The total scanned area was skull vertex to knees. Images of the body were obtained starting 57 minutes after injection of tracer. All reported SUVs are maximum SUVs, unless otherwise specified. COMPARISON: Multiple prior PET CTs, most recently 02/10/2025 DESCRIPTORS OF LESION FDG AVIDITY: Minimal: <= blood pool Mild: > blood pool and <= liver Moderate: > liver and <= 2x SUVmax liver Moderate to marked: >2x SUVmax liver and <= 3x SUVmax liver Marked: > 3x SUVmax liver FINDINGS: Evolving geographic areas of consolidation and groundglass throughout both lungs with decreased extent, uptake, and severity. No suspicious FDG uptake identified. No evidence of local recurrence or new metastatic disease. Degenerative uptake along the anterior C1 arch. Additional CT findings: Old granulomatous disease. Prior cholecystectomy. Right upper pole renal cyst. Hysterectomy. Right maxillary sinus mucosal retention cyst. Evolving geographic areas of consolidation and groundglass seen in both lungs. IMPRESSION: 1. No evidence of recurrent or metastatic disease. 2. Evolving geographic consolidation and groundglass opacities seen throughout both lungs with decreased extent, uptake, and severity representing improving immunotherapy related pneumonitis. Dictated by: Tati Lorenzo M.D. The radiology attending physician has personally reviewed this study, and had reviewed and/or edited this written report and agrees with it. Electronically signed by: Lorie Gil MD, Ph.D Daryl Glasgow NP IMG PET PROCEDURES Final Result * Surgical pathology (04/24/2025 5:00 PM CDT) Skin, shave biopsy 04/24/2025 5:00 PM CDT 05/02/2025 5:49 AM CDT Narrative 05/08/2025 1:56 PM CDT EPIC results best viewed via link to PDF [facility] [address] [place] [address], [address], [place] [address] [email or web address] Note to Patients: This report may contain [...] can answer questions and explain the details. FINAL REPORT Patient Information: PATIENT NAME: GUEVARA BAKER SEX: F : 1945 (Age: 80) Specimen Information: COLLECTED: 04/24/2025 RECEIVED: 05/02/2025 REPORTED: 05/08/2025 Submitting Physician Information: Jolly Manley [facility], [address] [place] [id number], DERMATOPATHOLOGY REPORT RESULTS DIAGNOSIS: A. SKIN, LEFT INFERIOR LATERAL LOWER BACK, SHAVE BIOPSY: COMPOUND MELANOCYTIC NEVUS B. SKIN, RIGHT MEDIAL BREAST 2-3:00 REGION, SHAVE BIOPSY: JUNCTIONAL DYSPLASTIC NEVUS WITH MILD ATYPIA Note: The lesion does not extend to the margins of the sections examined. A MART-1 immunohistochemical stain was performed to assess the distribution of melanocytes in the lesion and confirms the histologic impression. Multiple sections have been cut and studied. C. SKIN, PREIUMBILICAL SKIN, SHAVE BIOPSY: SQUAMOUS CELL CARCINOMA IN SITU D. SKIN, RIGHT ANTERIOR PROXIMAL THIGH, SHAVE BIOPSY: JUNCTIONAL MELANOCYTIC NEVUS, LENTIGINOUS TYPE, RUBBED Note: Multiple sections have been cut and studied. A MART-1 immunohistochemical stain was performed to assess the distribution of melanocytes in the lesion and confirms the histologic impression. dh/lac By this signature, I attest that the above diagnosis is based upon my personal examination of the slides(and/or other material indicated in the diagnosis). Anitha Robins M.D. Report Electronically Reviewed and Signed Out By Anitha Robins M.D. 05/08/2025 13:56:38 CLINICAL INFORMATION A. NEOPLASM OF UNCERTAIN BEHAVIOR VS DYSPLASTIC NEVUS B. NEOPLASM OF UNCERTAIN BEHAVIOR VS MELANOMA C. NEOPLASM OF UNCERTAIN BEHAVIOR VS BASAL CELL CARCINOMA VS PN D. NEOPLASM OF UNCERTAIN BEHAVIOR VS DYSPLASTIC NEVUS SPECIMEN DATA MICROSCOPIC DESCRIPTION: A. Enlarged monomorphous melanocytes are arranged as solitary units and nests at the dermo-epidermal junction and as uniform nests, cords and strands within the dermis. (D22.9) B. There is a broad proliferation of enlarged, relatively monomorphous melanocytes arranged as solitary units and as nests at the dermo-epidermal junction, where there is also bridging of the rete ridges. (D22.9) C. Atypical keratinocytes are present throughout the entire thickness of the epidermis. (D04.9) D. There is a proliferation of enlarged, relatively uniform melanocytes arranged predominantly as solitary units but also as small nests within the epidermis at the dermo-epidermal junction. There is also reticulated epidermal hyperplasia and hyperpigmentation. (D22.9) GROSS DESCRIPTION: A. Received in a formalin-containing bottle is a superficial fragment of pale garcia, finely scaling, and hair-bearing skin measuring 0.7 by 0.7 by 0.1 cm. The surgical margin is inked blue. The specimen is sectioned into 3 pieces and submitted entirely in a single cassette. Due to shrinkage, measurements may be different than those at the time of procedure. B. Received in a formalin-containing bottle are two superficial fragments of variegated, brown, pale garcia and finely scaling skin measuring 1.0 by 0.4 by 0.1 cm and 0.9 by 0.3 by 0.1 cm. The surgical margins are inked blue. The larger piece is sectioned into 2 pieces and the smaller piece is sectioned into 2 pieces. The specimen is submitted entirely in a single cassette. Due to shrinkage, measurements may be different than those at time of procedure. C. Received in a formalin-containing bottle is a superficial fragment of variegated, brown, pale garcia and slightly crusted skin measuring 0.8 by 0.7 by 0.2 cm. The surgical margin is inked blue. The specimen is sectioned into 3 pieces and submitted entirely in a single cassette. Due to shrinkage, measurements may be different than those at time of procedure. D. Received in a formalin-containing bottle is a superficial fragment of variegated, brown, pale garcia and finely scaling skin measuring 0.5 by 0.4 by 0.1 cm. The surgical margin is inked blue. The specimen is sectioned into 2 pieces and submitted entirely in a single cassette. Due to shrinkage, measurements may be different than those at time of procedure. sxt/dxv ICD-9 ZSD.877 ZSD.1474 ZSD.537 ZSD.407 Clerical Data A; 99043 B; 54344, 97662-OC C; 63865 D; 52529, 44009-QZ The characteristics of special, immunohistochemical, and immunofluorescence stains and in-situ hybridization tests performed by the [facility] were deemed acceptable in ongoing quality control coordinator measures and in compliance with regulations drawn from the Clinical Laboratory Improvement Act lu0145 (CLIA '88). Control reactions for all stains performed were deemed adequate and appropriate by a pathologist prior to evaluation of patient tissue. Some diagnoses were rendered with the assistance of laboratory-developed tests utilizing analyte-specific reagents; the performance characteristic of these tests were determined by [facility] and are not cleared or approved by the [place] Food an Drug administration. Laboratory developed test may only be performed in a facility that is certified by the [facility] as a high-complexity laboratory under CLIA '88. These tests are used for clinical purposes and are not investigational. 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
== END 2025-07-03 07:10 | disposition home or self-care (01) ==
LOC: CHSIMG 07:10
PROVIDERS: PCP Nurse Practitioner Family; Visit Provider Nurse Practitioner Family
DX: M54.50 Low back pain, unspecified (principal); M51.369 Other intervertebral disc degeneration, lumbar region without mention of lumbar back pain or lower extremity pain; M85.88 Other specified disorders of bone density and structure, other site
CPT/HCPCS: 72148

== ENCOUNTER 2025-09-09 06:16 | Outpatient (CLI) | payer MEDICARE, SELFPAY ==
[2025-09-09 07:21] LABS: Hematocrit 39.7 % (35.0-42.0); Hemoglobin 13.3 g/dL (11.7-13.8); Immature Granulocyte Percent A 0.4 % (0.0-0.0); Lymphocytes Absolute Auto 1.98 K/mm3 (1.10-4.50); Mean Corpuscular HGB Conc 33.5 g/dL (32-36); Mean Corpuscular Hemoglobin 29.4 pg (27.0-31.0); Mean Corpuscular Volume 87.8 fL (78.0-102.0); Nucleated Red Blood Cells Absolute Auto 0.00 K/mm3 (0.00-0.00); Nucleated Red Blood Cells Perc 0.0 % (0-0.0); Platelet Count Result 241 K/mm3 (150-420); Red Blood Count 4.52 M/mm3 (4.20-5.40); White Blood Count 7.8 K/mm3 (4.8-10.8)
[2025-09-09 07:54] LABS: Alanine Aminotransferase 32 U/L (6-35); Albumin Level 4.7 g/dL (3.5-5.1); Alkaline Phosphatase 56 U/L (38-126); Anion Gap 12 mmol/L (4-12); Aspartate Amino Transferase 40 U/L (14-36); Bilirubin,Total 1.0 mg/dL (0.2-1.3); Blood Urea Nitrogen 23 mg/dL (7-17); Calcium 10.7 mg/dL (8.4-10.2); Carbon Dioxide 25 mmol/L (22-30); Chloride 109 mmol/L (98-107); Cholesterol 266 mg/dL (0-200); Estimated Glomerular Filt Rate 54; Glucose 105 mg/dL (65-110); HDL Direct 84 mg/dL; Osmolality Calculated 305 mOsm/kg (285-295); Potassium 3.6 mmol/L (3.4-5.0); Sodium 146 mmol/L (137-145); Total Protein 7.4 g/dL (6.3-8.2); Triglycerides 161 mg/dL (<150)
== END 2025-09-09 06:17 | disposition home or self-care (01) ==
PROVIDERS: PCP Nurse Practitioner Family; Visit Provider Nurse Practitioner Family
DX: I10 Essential (primary) hypertension (principal); Z13.6 Encounter for screening for cardiovascular disorders; E78.5 Hyperlipidemia, unspecified; Z79.899 Other long term (current) drug therapy
CPT/HCPCS: 36415; 80053; 80061; 82306; 85025